=== PATIENT | female | born 1985 | race Caucasian/White ===

== ENCOUNTER 2018-07-24 21:06 | Emergency (ER) | payer MEDICAID, SELFPAY ==
[2018-07-24 21:07] VITALS: BP 120/65; PULSE 94; RESP 15; TEMP 36.8; BMI 27.3
--- NOTE | 2018-07-24 21:21 | ED.VISSUMM ---
- ER Visit Summary Date of Service: 07/24/18 Chief Complaint: Foot injury History of Present Illness: The patient is a 32 F presents to the emergency department with left foot injury. The patient states that she was at a park with her kids. She jumped off a large object into a [place]. She landed on a rock. She felt like her foot bent back. She was able to walk on it, but as the night has gone on, her pain is worsened. She describes it is very intense. She is otherwise healthy. She is not on any daily medications. She did not strike her head. She denies other injury. Physical Examination: Exam is relatively unremarkable. Patient does have contusion over the dorsum of the midfoot. Pulses are normal. Cap refill is normal. Sensation is preserved to light touch. Test Results: [] Emergency Department Course and Treatment: Plain films were obtained of the foot. There is no evidence of acute fracture. Again, the patient's pulses were normal. Compartments are soft. I do feel that this is likely ligamentous strain versus ligamentous rupture. The patient is placed in an Ayo wrap and given crutches. She will be given a short course of analgesics and anti-inflammatories along with outpatient podiatry follow-up. She is comfortable with this plan of care. After she was given analgesics, reevaluation she is resting comfortably and has good control of her pain. She will be discharged home. Treatment Plan: [] Disposition: Discharge Impression: 1. Left foot sprain This note was generated with [employer] dictation software. It may contain incorrect words, spelling, and punctuation that were not noted in review of the chart prior to signing ED Disposition - Plan for ED Patient: Instructions: ED Sprain Foot Prescriptions: Naproxen [Naprosyn] 500 mg PO BID PRN #20 tab Referrals: Addison Germain DPM [STAFF PHYSICIAN] -
--- NOTE | 2018-07-24 21:45 | RAD_ITS ---
HISTORY: PAIN FOLLOWING INJURY COMPARISON: None FINDINGS: # of images incl. paperwork: 3 XR Foot Min 3 Views : No fracture or subluxation. No osseous or soft tissue abnormality. The joint spaces are well-maintained. No radiopaque foreign body is seen. RAD/Foot min 3 Views IMPRESSION: Normal left foot. at 2236 Reported and signed by: Ricci Lyons MD Electronically Signed: Ricci Lyons MD at 22:35 EDT Tel , Service support ,
[2018-07-24] MEDS: HYDROcodone Bitartrate/Apap 5/325 Tablet PO ×2 (22:28→23:16)
[2018-07-24 23:19] VITALS: BP 116/75; PULSE 60; RESP 14; O2SAT 99
== END 2018-07-24 23:23 | disposition home or self-care (01) ==
PROVIDERS: Emergency Provider Emergency Medicine
DX: S93.602A Unspecified sprain of left foot, initial encounter (principal); S90.32XA Contusion of left foot, initial encounter; W16.92XA Jumping or diving into unspecified water causing other injury, initial encounter; W22.8XXA Striking against or struck by other objects, initial encounter; Y93.9 Activity, unspecified; Y92.830 Public park as the place of occurrence of the external cause; Y99.9 Unspecified external cause status; Z72.0 Tobacco use
CPT/HCPCS: 73630; 99284

== ENCOUNTER 2018-09-16 19:38 | Emergency (ER) | payer MEDICAID, SELFPAY ==
[2018-09-16 19:39] VITALS: BP 146/80; PULSE 75; RESP 18; TEMP 36.2; O2SAT 97; BMI 27.8
[2018-09-16] MEDS: 0.9% Normal Saline 1,000 ML 1000 ML IV (20:54)
[2018-09-16] MEDS: Ketorolac 30 MG/ML Syringe IV (20:55)
[2018-09-16] MEDS: Ondansetron 4 MG/2 ML Vial IV (20:55)
[2018-09-16 21:22] LABS: Internal QC Validated? YES +Cl - CLEAR BKGD; Pregnancy, Serum, hCG Quali. NEGATIVE Negative
--- NOTE | 2018-09-16 21:54 | ED.VISSUMM ---
- ER Visit Summary Date of Service: 09/16/18 Chief Complaint: Abdominal pain History of Present Illness: The patient is a 33 F who goes to the [facility]. She reports that she has abdominal pain that began 3 days ago. Is a diffuse aching pain that is 10-10 at worst and 8-10 currently. Is worsened by food and relieved by nothing. She had nausea without vomiting. She reports she had full episodes of diarrhea today. No blood in her stools or black tarry stools. No dysuria frequency. Her last menstrual. Was 2 days ago. No vaginal bleeding or discharge. Patient reports that she has swelling to the right side of her jaw for the past 3 days. Is gradually gotten worse. She has an achy pain 6 out of 10 with touching it. She denies any pain otherwise. She denies any dental pain. She denies sore throat. Physical Examination: Vitals: Stable. Afebrile. General: Well-nourished and well-developed. Head: Normocephalic atraumatic. Dental: Widespread dental decay. No focal abscess. There is no tenderness palpation. She has no sublingual edema. No trismus. Neck: Supple, no lymphadenopathy. No JVD. Nontender. Cardiovascular: Regular rate and rhythm. No murmurs. Respiratory: No respiratory distress. Clear to auscultation bilaterally. Abdominal: Soft, mild diffuse tenderness to palpation, nondistended, normal bowel sounds. No guarding, rebound, or peritoneal signs. Back: Nontender. Extremities: Nontender, no edema. Skin: Normal color, no rash. Neurologic: Alert and oriented ?3. Cranial nerves II through XII are intact. Normal strength and sensation. Psych: Normal affect. Test Results: test was negative. Emergency Department Course and Treatment: Patient was treated with Toradol and Zofran IV. She is resting comfortably. She is had no vomiting or diarrhea while here. Treatment Plan: Patient will be discharged with Zofran and clindamycin as she is penicillin allergic. Instructed to follow-up with dentist as soon as possible. Follow-up the [facility] in 1 to 2 days if her vomiting and diarrhea if not improving. Return to the emergency department for any worsening symptoms. Disposition: To home in improved and stable condition. Impression: 1. Vomiting/diarrhea. 2. Dental abscess. This note was generated with Dragon dictation software. It may contain incorrect words, spelling, and punctuation that were not noted in review of the chart prior to signing ED Disposition - Plan for ED Patient: Disposition: Home or Assisted Living Instructions: Dental Abscess, VOMITING AND DIARRHEA, Nonspecific (Adult) Prescriptions: Clindamycin [Cleocin] 300 mg PO 4X/DAY #80 cap Prescription Printed Ondansetron [Zofran Odt] 4 mg PO Q8H PRN PRN #10 tab PRN Reason: Nausea Prescription Printed Referrals: Dentist,Your [STAFF PHYSICIAN] - As soon as possible Ceci Olivas [Primary Care Provider] - 1-2 Days if not improving
[2018-09-16 22:06] VITALS: RESP 14
== END 2018-09-16 22:09 | disposition home or self-care (01) ==
PROVIDERS: Emergency Provider Emergency Medicine
DX: R11.2 Nausea with vomiting, unspecified (principal); R19.7 Diarrhea, unspecified; K04.7 Periapical abscess without sinus; K02.9 Dental caries, unspecified; R10.9 Unspecified abdominal pain; R51 Headache; Z72.0 Tobacco use
CPT/HCPCS: 84703; 96361; 96374; 96375; 99283; J7030; J2405

== ENCOUNTER 2018-10-06 07:28 | Emergency (ER) | payer MEDICAID, SELFPAY ==
[2018-10-06 07:29] VITALS: BP 130/86; PULSE 55; RESP 16; TEMP 36.6; O2SAT 97; BMI 26.4
--- NOTE | 2018-10-06 08:11 | ED.VISSUMM ---
- ER Visit Summary Date of Service: 10/06/18 Chief Complaint: Abdominal pain History of Present Illness: The patient is a 33 F with abdominal pain for 3 days. Pain is crampy and diffuse. Associated with nausea, vomiting, diarrhea, headache, and lightheadedness. Low-grade fevers. Denies sick contacts, but she did eat at a restaurant. She had steak but no other new or different foods. No travel. No history of abdominal surgeries. No urinary or INTELLIGENCE SUPPORT OFFICER symptoms. Physical Examination: Afebrile and vital signs unremarkable. Patient appears uncomfortable but not toxic or in distress. Normal mucous membranes. Normal skin. Heart regular. Lungs clear. Abdomen soft and nontender. No distention, guarding, or rebound. Test Results: We will check labs, urine, test. Emergency Department Course and Treatment: Patient received IV fluids and Zofran while awaiting results. Platelets 146, chloride 109, BUN 27, AST 10, lipase normal, urinalysis unremarkable, hCG negative. On reevaluation, patient has some continued nausea, but no new or other worsening symptoms. Patient was treated with Phenergan. I believe the patient is appropriate for outpatient care and discharge. She will be given a prescription for Phenergan. Stay hydrated. Return for any new or worsening symptoms which could require further evaluation or even hospitalization. Patient voiced understanding. Treatment Plan: As above Disposition: Discharge Impression: 1. Nausea, vomiting, diarrhea This note was generated with [id number] dictation software. It may contain incorrect words, spelling, and punctuation that were not noted in review of the chart prior to signing ED Disposition - Plan for ED Patient: Referrals: Ceci Olivas [Primary Care Provider] -
[2018-10-06] MEDS: 0.9% Normal Saline 1,000 ML 1000 ML IV (08:26)
[2018-10-06] MEDS: Ondansetron 4 MG/2 ML Vial IV (08:26)
[2018-10-06 08:27] LABS: Absolute Lymphocyte Count 1.82 X10^3/uL (0.83-4.51); Absolute Neutrophil Count 3.2 X10^3/uL (2.0-7.7); Basophil# 0.02 X10^3/uL; Basophil% 0.4 % (0-1); Eosinophil# 0.12 X10^3/uL; Eosinophils% 2.2 % (0-5); Hematocrit 41.2 % (37-47); Lymphocyte # 1.82 X10^3/ul (4.0); Lymphocyte % 32.7 % (19-41); Mean Corpuscular Hgb 31.5 pg (27.0-32.0); Mean Corpuscular Volume 92.6 fL (81-99); Mean Platelet Vol. 10.7 fl (6.2-12.0); Monocyte# 0.35 X10^3/uL; Monocyte% 6.3 % (0-10); NRBC Flagged by Analyzer 0 % (0-5); Neutrophil # 3.24 X10^3/uL (2.7-7.7); Platelet Count 146 K/mm3 (150-450); RBC Distribution Width CV 12.8 % (11.6-14.6); RBC Distribution Width SD 43.7 fl (35.1-43.9); Red Blood Count 4.45 M/mm3 (4.2-5.4); White Blood Count 5.6 K/mm3 (4.4-11.0)
[2018-10-06 08:38] LABS: ALB/GLOB Ratio 1.1 RATIO (0.9-2.4); AST(SGOT) 10 U/L (15-37); Alanine Aminotransfer ALT/SGPT 18 U/L (13-56); Albumin, Serum 3.5 g/dL (3.2-5.0); Alkaline Phosphatase 81 U/L (45-117); Anion Gap 6 (5-15); BUN 27 mg/dL (7-18); BUN/Creat Ratio 33.1 RATIO (10-20); Calcium,Total 8.5 mg/dL (8.5-10.1); Chloride 109 mmol/L (98-107); Creatinine, Serum 0.82 mg/dL (0.55-1.02); EST Glomerular Filtration Rate 85 mL/min (>60); Est Glom Filt Rate - Afr Amer 103 mL/min (>60); Globulin 3.1 g/dL (2.2-4.2); Glucose 91 mg/dL (74-106); Lipase 170 U/L (73-393); Potassium 3.9 mmol/L (3.5-5.1); Protein, Total 6.6 g/dL (6.4-8.2); Sodium Level 141 mmol/L (136-145)
[2018-10-06 09:28] VITALS: BP 124/83; PULSE 47; O2SAT 100
[2018-10-06 09:36] LABS: Internal QC Validated? YES +Cl - CLEAR BKGD; Pregnancy, Urine Negative Negative
[2018-10-06 09:37] LABS: Color, Urine Yellow (Yellow); Glucose, Dipstick Normal (Normal); Ketone-Dipstick Negative (Negative); Leukocyte Esterase-Dipstick 25 /ul (Negative); Nitrite-Dipstick Negative (Negative); Occult Blood-Urine 250 /ul (Negative); Protein-Dipstick 15 mg/dl (Negative); Specific Gravity, Urine 1.025 (1.002-1.030); Urine Bilirubin Dipstick Negative (Negative); Urine Clarity Sl. Cloudy (Clear); Urine Urobilinogen Normal (Normal)
[2018-10-06 09:47] LABS: Bacteria RARE /hpf (None Seen); Mucous, Urine 1+ /hpf (<or=2+); Red Blood Cells-Urine 0-5 SEEN /hpf (0-5); Squamous Epithelial Cells - UA 0-5 SEEN /hpf (5-10); White Blood Cells 0-5 SEEN /hpf (0-5)
[2018-10-06 10:11] VITALS: BP 129/91; PULSE 61; RESP 16; O2SAT 100
[2018-10-06] MEDS: proMETHazine 25 MG/ML Syringe 12.5 MG IV (10:15)
--- NOTE | 2018-10-06 10:17 | ED.DEP ---
ED Disposition - Plan for ED Patient: Instructions: GASTROENTERITIS, Viral (6y-Adult) Prescriptions: proMETHazine tablet [Phenergan] 25 mg PO Q6H PRN PRN #10 tab PRN Reason: Nausea Prescription Printed Referrals: Ceci Olivas [Primary Care Provider] -
== END 2018-10-06 10:38 | disposition home or self-care (01) ==
LOC: ED 08:04
PROVIDERS: Emergency Provider Emergency Medicine
DX: R10.9 Unspecified abdominal pain (principal); R11.2 Nausea with vomiting, unspecified; R19.7 Diarrhea, unspecified; R50.9 Fever, unspecified; R42 Dizziness and giddiness; R51 Headache; Z72.0 Tobacco use
CPT/HCPCS: 80053; 81001; 81025; 83690; 85025; 96361; 96374; 96375; 99284; J7030; A4216; J2405

== ENCOUNTER 2019-01-06 04:26 | Emergency (ER) | payer MEDICAID, SELFPAY ==
[2019-01-06 04:26] VITALS: BP 159/102; PULSE 53; RESP 20; TEMP 36.5; O2SAT 100; BMI 26.5
--- NOTE | 2019-01-06 04:40 | ED.VIS.GEN ---
History of Present Illness Informant: Patient Narrative: She stated she has had nausea vomiting since 1130 approximately 4 hours ago. She woke up and felt diffuse abdominal cramping and started retching. She has had too many dry heaves to count. No home treatment. No sick contacts. No fevers or chills. Denies any diarrhea. Current severity is moderate. Denies . <Valentin Segovia - Last Filed: 01/06/19 06:41> <Caroline Coffman - Last Filed: 01/06/19 07:31> Chief Complaint: Nausea/Vomiting Past Medical History Prior records reviewed: Yes Past Medical History: None Surgical History: - - section Lives: With Family Smoking Status: Current every day smoker Alcohol: None Drugs: None <Valentin Segovia - Last Filed: 01/06/19 06:41> <Caroline Coffman - Last Filed: 01/06/19 07:31> - Allergies and Home Meds Allergies/Adverse Reactions: Allergies Penicillins Allergy (Verified 01/06/19 04:31) Anaphylaxis Primary Care Physician: Ceci Olivas [Primary Care Provider] - Review of Systems General: Denies: Chills, Fever, Sweats Eyes: Denies: Visual changes - bilaterally, Diplopia ENT: Denies: Rhinorrhea, Sore throat Cardiovascular: Denies: Chest pain, Palpitations Respiratory: Denies: Dyspnea, Cough, Dyspnea on exertion Gastrointestinal: Reports: Abdominal pain, Nausea, Vomiting. Denies: Diarrhea, Melena, Hematochezia Genitourinary: Denies: Dysuria, Hematuria, Frequency Musculoskeletal: Denies: Back pain, Extremity Pain Skin: Denies: Rash, Wounds Neurological: Denies: Headache, Weakness, Numbness <Valentin Segovia - Last Filed: 01/06/19 06:41> Physical Exam Vital Signs/Narrative: Vital Signs Temp Pulse Resp BP Pulse Ox 01/06/19 04:26 97.7 F L 53 L 20 H 159/102 H 100 General: Well nourished, Well developed, No Acute Distress Head: Normocephalic, Atraumatic Eyes: Perrl, EOMI ENT: Moist mucous membranes, No rhinorrhea Neck: Supple, Nontender Cardiovascular: Regular rate, Regular rhythm, No murmurs Respiratory: No distress, CTA bilaterally, Chest nontender Abdomen: Soft, Nondistended, Normal bowel sounds, Tender - Mild diffuse tenderness. Negative for: Nontender, Guarding, Rebound tenderness Back: Nontender, Normal Inspection Extremities: Nontender, No edema Skin: Normal color, No rash Neurological: Alert, Oriented x3, Cranial nerves II-XII grossly intact, Normal Strength, Normal Sensation Psychological: Normal affect, Normal Mood <Valentin Segovia - Last Filed: 01/06/19 06:41> Vital Signs/Narrative: Vital Signs Temp Pulse Resp BP Pulse Ox 01/06/19 06:46 60 18 155/89 H 100 01/06/19 04:26 97.7 F L 53 L 20 H 159/102 H 100 <Caroline Coffman - Last Filed: 01/06/19 07:31> Diagnostic/Tx/Re-eval - Medical Decision Making Patient given IV fluids Zofran Toradol. Lab work obtained and lab work unremarkable except potassium 3.4. Patient felt much better after treatment. At this time I feel she has an uncomplicated nausea and vomiting. She will be discharged with Zofran to take at home and will drink plenty of fluids. She will return if she worsens. I do not feel she needs further lab work or imaging. <Valentin Segovia - Last Filed: 01/06/19 06:41> - Medical Decision Making Patient was reevaluated at 730. She states she has not had any further vomiting still feels slightly nauseous. I encouraged her to go home and sleep, not put anything on her stomach right now. She is given prescriptions for Phenergan and Zofran per Dr. Segovia's orders. <Caroline Coffman - Last Filed: 01/06/19 07:31> ED Disposition <Valentin Segovia - Last Filed: 01/06/19 06:41> <Caroline Coffman - Last Filed: 01/06/19 07:31> - Plan for ED Patient: Disposition: Home or Assisted Living Diagnosis: Vomiting Instructions: VOMITING (6y-Adult) Prescriptions: proMETHazine tablet [Phenergan] 25 mg PO Q6H PRN PRN #10 tab PRN Reason: Nausea Prescription Printed Ondansetron [Zofran Odt] 4 mg PO Q8H PRN PRN #10 tab PRN Reason: Nausea Prescription Printed Referrals: Ceci Olivas [Primary Care Provider] -
[2019-01-06] MEDS: Ondansetron 4 MG/2 ML Vial IV ×2 (04:50→06:02)
[2019-01-06] MEDS: 0.9% Normal Saline 1,000 ML 1000 ML IV ×2 (04:50→06:02)
[2019-01-06] MEDS: Ketorolac 30 MG/ML Syringe IV (04:50)
[2019-01-06 05:10] LABS: Anion Gap 7 (5-15); BUN 13 mg/dL (7-18); BUN/Creat Ratio 18.5 RATIO (10-20); Calcium,Total 8.7 mg/dL (8.5-10.1); Chloride 109 mmol/L (98-107); EST Glomerular Filtration Rate 100 mL/min (>60); Est Glom Filt Rate - Afr Amer 121 mL/min (>60); Estimated Creatinine Clearance 117.23 ml/min; Glucose 130 mg/dL (74-106); Potassium 3.4 mmol/L (3.5-5.1); Sodium Level 140 mmol/L (136-145)
[2019-01-06] MEDS: proMETHazine 25 MG/ML Syringe 12.5 MG IV (06:44)
[2019-01-06 06:46] VITALS: BP 155/89; PULSE 60; RESP 18; O2SAT 100
[2019-01-06 07:36] VITALS: BP 113/74; PULSE 62; RESP 15; O2SAT 98
== END 2019-01-06 07:39 | disposition home or self-care (01) ==
PROVIDERS: Emergency Provider Emergency Medicine; Referring Provider Nurse Practitioner Family
DX: R11.2 Nausea with vomiting, unspecified (principal); F17.200 Nicotine dependence, unspecified, uncomplicated; Z88.0 Allergy status to penicillin
CPT/HCPCS: 80048; 96361; 96374; 96375; 96376; 99285; J7030; A4216; J2405

== ENCOUNTER → 2019-03-07 16:23 | Outpatient (CLI) | payer MEDICAID, SELFPAY ==
--- NOTE | 2019-03-07 16:27 | RAD_ITS ---
STUDY: X-RAY - SACRUM/COCCYX REASON FOR EXAM: Female, 33 years old. Pain. Prior trauma. TECHNIQUE: 3 view(s) of the sacrum and coccyx were obtained. COMPARISON: None. FINDINGS: Normal bilateral sacroiliac joints. Normal visualized sacral ala and fused sacral bodies. Normal sacrococcygeal junction with a normal angulation. There is an intrauterine device noted. The presacral soft tissue structures are unremarkable. RAD/Sacrum-Coccyx min 2 Views IMPRESSION: Normal x-rays of the sacrum and coccyx. Electronically Signed: Jonas Tillman, at 19:59 EST Tel , Service support ,
--- NOTE | 2019-03-07 16:30 | RAD_ITS ---
STUDY: X-RAY - LUMBAR SPINE REASON FOR EXAM: Female, 33 years old. Pain. Prior trauma. TECHNIQUE: 3 view(s) of the lumbar spine were obtained. COMPARISON: None FINDINGS: There is no evidence of fracture or dislocation in the lumbar spine. The vertebral body heights and disc spaces are well-maintained. There are no significant degenerative changes. There is intrauterine device noted. RAD/Lumbar Spine 2 or 3 Views IMPRESSION: No fracture or dislocation in the lumbar spine. Electronically Signed: Jonas Tillman, at 19:58 EST Tel , Service support ,
== END ==
DX: M54.5 Low back pain (principal)
CPT/HCPCS: 72100; 72220

== ENCOUNTER 2019-03-14 12:00 | Emergency (ER) | payer MEDICAID, SELFPAY ==
[2019-03-14 12:01] VITALS: BP 139/100; PULSE 88; RESP 16; TEMP 37; O2SAT 100; BMI 27.3
--- NOTE | 2019-03-14 14:00 | ED.DCSUM_ITS ---
- ER Visit Summary Date of Service: 03/14/19 Chief Complaint: Right side pain History of Present Illness: The patient is a 33 F who presents with pain in her entire right side of her body for the past 2 to 3 weeks. Patient states it is gradually gotten worse. Patient states it is over her right arm and right leg. Patient also admits to some pain in the right side of her back. Patient admits to some numbness and achiness in her right lower extremity. Patient states her right great toe goes white. Patient denies any fevers but admits to subjective chills. Patient admits to headache, neck pain, and back pain. Patient states she has pain that is worse over the posterior aspect of the right hip and right gluteal area. Physical Examination: All signs are stable. Patient is afebrile. Patient is in no acute distress. Oral mucosa is pink and moist. Neck is supple. Trachea is midline. There is no JVD. Heart was regular rate and rhythm. Lungs are clear and equal bilaterally. Abdomen is soft. Bowel sounds are normal. There is no tenderness. Extremities are intact. Pedal pulses are equal bilaterally. Radial pulses are equal bilaterally. Sensation was intact light touch in all digits. Capillary refill was less than 2 seconds in all digits. Strength is 5 /5 bilateral knee upper and lower extremities. There is tenderness over the right sciatic notch. This reproduces the paresthesias down her right lower extremity. Emergency Department Course and Treatment: Patient was advised that this is most likely sciatica causing the pain down her right lower extremity. She may also have some muscle spasm causing some paresthesias in her right upper extremity. Patient does not have any signs of vascular occlusion. Patient was advised that no radiographic or lab testing is necessary at this time. Patient became upset with this and grabbed her socks and started to put them on. Patient stated that you cannot diagnose a pinched nerve without a CAT scan. Patient was given prescriptions for Naprosyn and Valium. Patient was instructed to follow-up with her primary care physician in 3 to 5 days. Patient understood and all questions were answered. Disposition: Discharge home Impression: Sciatica This note was generated with [employer] dictation software. It may contain incorrect words, spelling, and punctuation that were not noted in review of the chart kaio r to signing ED Disposition - Plan for ED Patient: Disposition: Home or Assisted Living Diagnosis: Sciatica Instructions: Understanding Sciatica Prescriptions: Naproxen [Naprosyn] 500 mg PO BID PRN #20 tab Prescription Printed Diazepam [Valium] 5 mg PO Q8 PRN #10 tab PRN Reason: Muscle Spasm Prescription Printed Referrals: Ceci Olivas [Primary Care Provider] - 3-5 Days
--- NOTE | 2019-03-14 14:13 | ED.RN ---
THIS RN WENT TO DISCHARGE PT. PT ROOM IS EMPTY. PT LEFT PRIOR TO DISCHARGE INSTRUCTIONS. DR. COLEMAN MADE AWARE, PRESCRIPTIONS WERE PUT IN CONFIDENTIAL SHREDDER BOX.
== END 2019-03-14 14:26 | disposition home or self-care (01) ==
PROVIDERS: Emergency Provider Emergency Medicine
DX: M54.31 Sciatica, right side (principal); R07.9 Chest pain, unspecified; M54.2 Cervicalgia; R51 Headache; Z72.0 Tobacco use; R11.0 Nausea; Z79.899 Other long term (current) drug therapy
CPT/HCPCS: 99282

== ENCOUNTER 2019-05-03 07:20 | Emergency (ER) | payer MEDICAID, SELFPAY ==
[2019-05-03 07:21] VITALS: BP 139/81; PULSE 69; RESP 18; TEMP 36.6; O2SAT 96; BMI 29.5
--- NOTE | 2019-05-03 07:32 | RAD_ITS ---
STUDY: X-RAY CHEST REASON FOR EXAM: Female, 33 years old. Cough, fever body aches -- x 1 week TECHNIQUE: PA and lateral views of the chest. COMPARISON: Comparison is made with prior examination dated November 29, 2016. FINDINGS: The lungs are clear and expanded. Stable scattered calcified granulomas. There is no demonstrated pleural abnormality. Normal size heart. Normal mediastinum and aleena. Normal visualized pulmonary arteries. Normal visualized aortic arch and descending thoracic aorta. Normal visualized thoracic spine. Normal visualized ribs, clavicles, and shoulders. There is no demonstrated abnormality of the visualized soft tissue structures of the upper abdomen. RAD/Chest PA and Lateral IMPRESSION: Normal x-ray examination of the chest. Electronically Signed: Yo Zuniga, at 8:46 EDT , Service support ,
--- NOTE | 2019-05-03 07:32 | ED.VIS.GEN ---
History of Present Illness Chief Complaint: Cough Informant: Patient Narrative: Patient states that approximately 9 days ago she woke up with headache cough and body aches and fever. She notes nausea at that time. States symptoms have progressed. Fever is subjective. She states that each of the past several mornings she is woken up with a sensation that something is in her throat begins to cough which leads to coughing fits gagging and posttussive emesis. She also notes some diarrhea. No rashes. She denies any rhinorrhea or nasal congestion. Past Medical History - Allergies and Home Meds Allergies/Adverse Reactions: Allergies Penicillins Allergy (Verified 05/03/19 07:23) Anaphylaxis Primary Care Physician: Ceci Olivas [Primary Care Provider] - Surgical History: - - section Smoking Status: Current every day smoker Review of Systems General: Reports: Chills, Fever, Malaise, Subjective. Denies: Sweats Eyes: Denies: Visual changes - bilaterally, Diplopia ENT: Denies: Rhinorrhea, Sore throat Cardiovascular: Denies: Chest pain, Palpitations Respiratory: Reports: Cough. Denies: Dyspnea, Dyspnea on exertion Gastrointestinal: Reports: Nausea, Vomiting, Diarrhea. Denies: Abdominal pain, Melena, Hematochezia Genitourinary: Denies: Dysuria, Hematuria, Frequency Musculoskeletal: Reports: Myalgias. Denies: Back pain, Extremity Pain Skin: Denies: Rash, Wounds Neurological: Reports: Headache. Denies: Weakness, Numbness Psych: Denies: Depression, Anxiety, Suicidal thoughts, Suicidal ideations Endocrine: Denies: Polyuria, Polydipsia, Heat intolerance, Cold intolerance Hematologic: Denies: Easy bruising, Easy bleeding Allergy: Denies: Uticaria, Swelling of the mouth Physical Exam Vital Signs/Narrative: Vital Signs Temp Pulse Resp BP Pulse Ox 05/03/19 07:21 98 F 69 18 139/81 H 96 Inital Vital Signs reviewed: Yes General: Well nourished, Well developed, No Acute Distress Head: Normocephalic, Atraumatic Eyes: Perrl, EOMI ENT: Moist mucous membranes, No rhinorrhea Neck: Supple, Nontender Cardiovascular: Regular rate, Regular rhythm, No murmurs Respiratory: No distress, CTA bilaterally, Chest nontender Abdomen: Soft, Nontender, Nondistended, Normal bowel sounds Back: Nontender, Normal Inspection Extremities: Nontender, No edema Skin: Normal color, No rash Neurological: Alert, Oriented x3, Cranial nerves II-XII grossly intact, Normal Strength, Normal Sensation Psychological: Normal affect, Normal Mood Diagnostic/Tx/Re-eval - Medical Decision Making CBC CMP and lipase were normal. Influenza swab is normal. test is negative. Chest x-ray negative. Patient received a liter of IV fluids. Patient will be discharged home with continued supportive care. I will write for Zofran for nausea vomiting. Continued rest hydration Tylenol and/or Motrin for fever follow-up with primary care. ED Disposition - Plan for ED Patient: Disposition: Home or Assisted Living Diagnosis: Gastroenteritis, Viral syndrome Instructions: VIRAL SYNDROME (Adult), GASTROENTERITIS, Viral (6y-Adult) Prescriptions: Ondansetron [Zofran Odt] 4 mg PO Q6H PRN PRN #14 tab PRN Reason: Nausea Transmission Status: Pending to [facility] [place] Referrals: Ceci Olivas [Primary Care Provider] - 3-5 Days if not improving
[2019-05-03] MEDS: Ondansetron 4 MG/2 ML Vial IV (07:58)
[2019-05-03] MEDS: Ketorolac 15 MG/ML Vial IV (07:58)
[2019-05-03] MEDS: 0.9% Normal Saline 1,000 ML 1000 ML IV (07:58)
[2019-05-03 08:03] VITALS: BP 131/94; PULSE 65; RESP 16; TEMP 36.8; O2SAT 100
[2019-05-03 08:13] LABS: Absolute Lymphocyte Count 1.62 X10^3/uL (0.83-4.51); Absolute Neutrophil Count 6.6 X10^3/uL (2.0-7.7); Basophil# 0.01 X10^3/uL; Basophil% 0.1 % (0-1); Eosinophil# 0.08 X10^3/uL; Eosinophils% 0.9 % (0-5); Hematocrit 38.4 % (37-47); Hemoglobin 13.3 g/dL (12.0-15.0); Lymphocyte # 1.62 X10^3/ul (4.0); Lymphocyte % 18.5 % (19-41); Mean Corp Hgb Conc 34.6 g/dL (32-36); Mean Corpuscular Hgb 30.6 pg (27.0-32.0); Mean Corpuscular Volume 88.5 fL (81-99); Mean Platelet Vol. 10.2 fl (6.2-12.0); Monocyte# 0.44 X10^3/uL; NRBC Flagged by Analyzer 0 % (0-5); Neutrophil # 6.56 X10^3/uL (2.7-7.7); Neutrophil % 74.9 % (47-70); Platelet Count 139 K/mm3 (150-450); RBC Distribution Width CV 12.2 % (11.6-14.6); RBC Distribution Width SD 39.8 fl (35.1-43.9); Red Blood Count 4.34 M/mm3 (4.2-5.4); White Blood Count 8.8 K/mm3 (4.4-11.0)
[2019-05-03 08:25] LABS: ALB/GLOB Ratio 1.1 RATIO (0.9-2.4); AST(SGOT) 23 U/L (15-37); Alanine Aminotransfer ALT/SGPT 29 U/L (13-56); Albumin, Serum 3.5 g/dL (3.2-5.0); Alkaline Phosphatase 66 U/L (45-117); Anion Gap 5 (5-15); BUN 17 mg/dL (7-18); BUN/Creat Ratio 28.3 RATIO (10-20); Calcium,Total 8.1 mg/dL (8.5-10.1); Chloride 112 mmol/L (98-107); EST Glomerular Filtration Rate 121 mL/min (>60); Est Glom Filt Rate - Afr Amer 146 mL/min (>60); Estimated Creatinine Clearance 136.77 ml/min; Globulin 3.1 g/dL (2.2-4.2); Glucose 105 mg/dL (74-106); Lipase 135 U/L (73-393); Potassium 3.4 mmol/L (3.5-5.1); Protein, Total 6.6 g/dL (6.4-8.2); Sodium Level 143 mmol/L (136-145)
[2019-05-03 10:02] LABS: Internal QC Validated? YES +Cl - CLEAR BKGD; Pregnancy, Urine Negative Negative
[2019-05-03 11:46] VITALS: BP 134/97; PULSE 80; RESP 16; O2SAT 97
[2019-05-03 11:47] VITALS: BP 134/97; PULSE 80; RESP 16; TEMP 36.6; O2SAT 97
== END 2019-05-03 11:49 | disposition home or self-care (01) ==
PROVIDERS: Emergency Provider Emergency Medicine
DX: A08.4 Viral intestinal infection, unspecified (principal); R05 Cough; F17.200 Nicotine dependence, unspecified, uncomplicated; Z79.899 Other long term (current) drug therapy; Z88.0 Allergy status to penicillin
CPT/HCPCS: 71046; 80053; 81025; 83690; 85025; 87804; 96361; 96374; 96375; 99284; J7030; A4216; J2405

== ENCOUNTER 2019-05-06 13:05 | Emergency (ER) | payer MEDICAID, SELFPAY ==
[2019-05-06 13:09] VITALS: BP 177/85; PULSE 56; RESP 18; TEMP 36.4; O2SAT 98; BMI 29.9
--- NOTE | 2019-05-06 13:52 | RAD_ITS ---
STUDY: X-RAY CHEST REASON FOR EXAM: Female, 33 years old. PT C/O cough, body aches, N/V. Denies any travel or contact with sick, was seen last week for flu like sx TECHNIQUE: Single AP portable view of the chest. COMPARISON: 05/03/2019 FINDINGS: The lungs are clear and expanded. There is no demonstrated pleural abnormality. Normal size heart. Normal mediastinum and aleena. Normal visualized pulmonary arteries. Normal visualized aortic arch and descending thoracic aorta. Normal visualized thoracic spine. Normal visualized ribs, clavicles, and shoulders. There is no demonstrated abnormality of the visualized soft tissue structures of the upper abdomen. RAD/Chest 1 View (Portable) IMPRESSION: Normal x-ray examination of the chest. Electronically Signed: Darren Moncada MD at 14:13 EDT Tel , Service support ,
--- NOTE | 2019-05-06 13:53 | ED.VISSUMM ---
- ER Visit Summary Date of Service: 05/06/19 Chief Complaint: Nausea and vomiting History of Present Illness: The patient is a 33 F with nausea and vomiting for several days. She also has occasional diarrhea. She reports a cough, but denies fevers, shortness of breath, travel, or exposure to coronavirus. She was seen in the ED earlier this week. Her labs were unremarkable. Influenza test was negative. She was treated with fluids and prescribed Zofran. She took Zofran at home, but is not improving. She feels worse but has no real new symptoms since her prior visit. She has a history of H. pylori, kidney stones, gastroenteritis, . Smoker. Physical Examination: Hypertensive but otherwise vitals unremarkable. Alert and oriented. Appears uncomfortable and depressed. Not toxic or in distress. Mucous membranes are moist. Heart regular. Lungs clear. Abdomen soft and nontender. Extremities nontender with no edema. Test Results: We will recheck labs, check urine and as well. We will check a chest x-ray. Emergency Department Course and Treatment: Patient was treated with Toradol, Phenergan, fluids while awaiting results. Will reassess. CBC normal. Metabolic panel unremarkable. Lipase normal. Urinalysis unremarkable. hCG negative. Chest x-ray normal. Reevaluation, patient will be discharged for outpatient care. No red flag features. No indication for inpatient care or further diagnostic testing. She will prescribed Phenergan and medicine for pain. Rest, fluids, follow-up with primary care. Treatment Plan: As above Disposition: Discharge Impression: Nausea vomiting and diarrhea This note was generated with [employer] dictation software. It may contain incorrect words, spelling, and punctuation that were not noted in review of the chart prior to signing ED Disposition - Plan for ED Patient: Referrals: Ceci Olivas [Primary Care Provider] -
[2019-05-06] MEDS: 0.9% Normal Saline 1,000 ML 1000 ML IV (14:18)
[2019-05-06] MEDS: Ketorolac 30 MG/ML Syringe IV (14:19)
[2019-05-06] MEDS: proMETHazine 25 MG/ML Syringe 12.5 MG IV (14:19)
[2019-05-06 14:22] LABS: Absolute Lymphocyte Count 0.77 X10^3/uL (0.83-4.51); Absolute Neutrophil Count 7.5 X10^3/uL (2.0-7.7); Eosinophil# 0.01 X10^3/uL; Eosinophils% 0.1 % (0-5); Hematocrit 37.4 % (37-47); Hemoglobin 12.9 g/dL (12.0-15.0); Lymphocyte # 0.77 X10^3/ul (4.0); Lymphocyte % 9.1 % (19-41); Mean Corp Hgb Conc 34.5 g/dL (32-36); Mean Corpuscular Hgb 30.5 pg (27.0-32.0); Mean Corpuscular Volume 88.4 fL (81-99); Mean Platelet Vol. 10.5 fl (6.2-12.0); Monocyte# 0.17 X10^3/uL; NRBC Flagged by Analyzer 0 % (0-5); Neutrophil # 7.51 X10^3/uL (2.7-7.7); Neutrophil % 88.4 % (47-70); Platelet Count 165 K/mm3 (150-450); RBC Distribution Width CV 12.7 % (11.6-14.6); Red Blood Count 4.23 M/mm3 (4.2-5.4); White Blood Count 8.5 K/mm3 (4.4-11.0)
[2019-05-06 14:38] LABS: ALB/GLOB Ratio 1.2 RATIO (0.9-2.4); AST(SGOT) 19 U/L (15-37); Alanine Aminotransfer ALT/SGPT 30 U/L (13-56); Albumin, Serum 3.7 g/dL (3.2-5.0); Alkaline Phosphatase 71 U/L (45-117); Anion Gap 7 (5-15); BUN 12 mg/dL (7-18); Calcium,Total 8.5 mg/dL (8.5-10.1); Chloride 110 mmol/L (98-107); Creatinine, Serum 0.57 mg/dL (0.55-1.02); EST Glomerular Filtration Rate 127 mL/min (>60); Est Glom Filt Rate - Afr Amer 154 mL/min (>60); Estimated Creatinine Clearance 143.97 ml/min; Globulin 3.2 g/dL (2.2-4.2); Glucose 136 mg/dL (74-106); Lipase 78 U/L (73-393); Potassium 3.6 mmol/L (3.5-5.1); Protein, Total 6.9 g/dL (6.4-8.2); Sodium Level 140 mmol/L (136-145)
[2019-05-06 15:32] LABS: Glucose, Dipstick 50 mg/dl (Normal); Ketone-Dipstick 50 mg/dl (Negative); Leukocyte Esterase-Dipstick Negative /ul (Negative); Nitrite-Dipstick Negative (Negative); Occult Blood-Urine 50 /ul (Negative); Protein-Dipstick Negative (Negative); Urine Bilirubin Dipstick Negative (Negative); Urine Urobilinogen Normal (Normal)
[2019-05-06 15:35] LABS: Internal QC Validated? YES +Cl - CLEAR BKGD; Pregnancy, Urine Negative Negative
[2019-05-06 15:36] LABS: Color, Urine Yellow (Yellow); Urine Clarity Clear (Clear)
--- NOTE | 2019-05-06 15:48 | ED.DEP ---
ED Disposition - Plan for ED Patient: Instructions: GASTROENTERITIS, Viral (6y-Adult) Prescriptions: Ibuprofen [Motrin] 800 mg PO TID PRN PRN #20 tab PRN Reason: Pain Or Fever Prescription Printed proMETHazine tablet [Phenergan] 25 mg PO Q6H PRN PRN #10 tab PRN Reason: Nausea Prescription Printed Referrals: Ceci Olivas [Primary Care Provider] -
[2019-05-06 16:12] VITALS: BP 120/87; PULSE 78; RESP 16; O2SAT 99
--- NOTE | 2019-05-06 16:20 | ED.RN ---
called [facility], they are to send [facility]. 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
== END 2019-05-06 16:21 | disposition home or self-care (01) ==
LOC: ED 14:28
PROVIDERS: Emergency Provider Emergency Medicine
DX: R11.2 Nausea with vomiting, unspecified (principal); R19.7 Diarrhea, unspecified; I10 Essential (primary) hypertension; R05 Cough; F17.200 Nicotine dependence, unspecified, uncomplicated; Z79.899 Other long term (current) drug therapy; Z86.19 Personal history of other infectious and parasitic diseases; Z87.442 Personal history of urinary calculi
CPT/HCPCS: 71045; 80053; 81002; 81025; 83690; 85025; 96361; 96374; 96375; 99285; J7030

== ENCOUNTER → 2019-06-15 12:25 | Outpatient (CLI) | payer MEDICAID, SELFPAY ==
--- NOTE | 2019-06-15 14:14 | NEURO ---
NCS and/or EMG Patient Report Ordering Doctor: Lauren Daniel DATE OF SERVICE: 06/15/19 Tammy Avila is a 33-year-old female presents for electrodiagnostic testing of the upper limbs. She reports numbness and tingling in both hands, worse on the right side. Electrode diagnostic findings median motor nerve demonstrates prolonged distal latency with normal amplitude bilaterally. There is slowing of right median motor conduction across the wrist. Ulnar motor responses within normal limits. Median sensory latency at the wrist is prolonged bilaterally. Normal ulnar and radial sensory responses On needle EMG, all muscles tested in the upper limbs showed no evidence of denervation with normal motor unit action potentials. Electrodiagnostic assessment: This is an abnormal study in the upper limbs 1. Electrodiagnostic findings demonstrate bilateral median mononeuropathy. This is consistent with a mild to moderate bilateral carpal tunnel syndrome. If there are any further questions, please do not hesitate to contact me.
== END ==
PROVIDERS: Visit Provider Nurse Practitioner Family
DX: G56.03 Carpal tunnel syndrome, bilateral upper limbs (principal)
CPT/HCPCS: 95886; 95912

== ENCOUNTER 2019-07-24 17:27 | Emergency (ER) | payer MEDICAID, SELFPAY ==
[2019-07-24 17:28] VITALS: BP 145/92; PULSE 61; RESP 16; TEMP 36.3; O2SAT 97; BMI 27.3
--- NOTE | 2019-07-24 17:45 | ED.VIS.GI ---
History of Present Illness Chief Complaint: Nausea/Vomiting Informant: Patient - Abdominal Pain/Flank Pain Onset: Today Context: - - Awoke in the middle of the night with vomiting Quality: Aching, Cramping Location: Diffuse Current Severity: Severe Maximum Severity: Severe Worsened by: Food Relieved by: Nothing - Nausea/Vomiting/Emesis GI Symptom: Nausea, Vomiting Quality: Nonbilious, Blood streaks. Negative for: Coffee ground Severity: Severe - Diarrhea/Melena/Hematochezia GI Symptom: Diarrhea. Negative for: Melena, Hematochezia Stool Quality: Loose. Negative for: Black, Maroon, KALEB per rectum Severity: Moderate Associated Symptoms: Negative for: Dysuria, Frequency, Hematuria, Urgency Narrative: 33-year-old healthy female is seen along with her for the same symptoms; vomiting, she states it started last night the middle of the night, she was out drinking last night, states she had about 5 shots of gin followed by an additional mixed drink with hard liquor. She states she usually does not drink. Pain cramping is diffuse, does not radiate into her back. She denies pain up into her chest or trouble breathing. No recent fevers. No blood per rectum. Or melena. She has been vomiting all night and day, cannot keep any fluids down, him has been feeling lightheaded. No syncope. Past Medical History - Allergies and Home Meds Allergies/Adverse Reactions: Allergies Penicillins Allergy (Verified 05/03/19 07:23) Anaphylaxis Primary Care Physician: Ceci Kirby [Primary Care Provider] - Past Medical History: None Surgical History: - - section Lives: Spouse/ Significant Other Smoking Status: Current every day smoker Alcohol: Occasional Review of Systems General: Reports: Malaise. Denies: Chills, Fever, Sweats Eyes: Denies: Visual changes - bilaterally, Diplopia ENT: Denies: Rhinorrhea, Sore throat Cardiovascular: Denies: Chest pain, Palpitations Respiratory: Denies: Dyspnea, Cough, Dyspnea on exertion Gastrointestinal: Reports: Abdominal pain, Nausea, Vomiting, Diarrhea. Denies: Melena, Hematochezia Genitourinary: Denies: Dysuria, Hematuria, Frequency Musculoskeletal: Denies: Back pain, Extremity Pain Skin: Denies: Rash, Wounds Neurological: Denies: Headache, Weakness, Numbness Psych: Reports: Anxiety Physical Exam Vital Signs/Narrative: Vital Signs Temp Pulse Resp BP Pulse Ox 07/24/19 17:28 97.3 F L 61 16 145/92 H 97 Inital Vital Signs reviewed: Yes General: Well nourished, Well developed, Obese, No Acute Distress Head: Normocephalic, Atraumatic Eyes: Perrl, EOMI ENT: Moist mucous membranes, No rhinorrhea Neck: Supple, Nontender. Negative for: No lymphadenopathy Cardiovascular: Regular rate, Regular rhythm, No murmurs. Negative for: Tachycardia Respiratory: No distress, CTA bilaterally, Chest nontender Abdomen: Soft, Nondistended, Normal bowel sounds, Tender - Epigastrium. Negative for: Guarding, Rebound tenderness Back: Nontender, Normal Inspection. Negative for: CVA tenderness Extremities: Nontender, No edema Skin: Normal color, No rash, No Trauma Neurological: Alert, Oriented x3, Cranial nerves II-XII grossly intact, Normal Strength, Normal Sensation Psychological: Normal Mood, - - Anxious Diagnostic/Tx/Re-eval Laboratory Results 07/24/19 07/24/19 07/24/19 17:54 17:54 19:35 WBC 10.0 RBC 4.78 Hgb 14.6 Hct 42.5 MCV 88.9 MCH 30.5 MCHC 34.4 RDW Std Deviation 41.8 RDW Coeff of Amrit 12.7 Plt Count 162 MPV 10.0 Immature Gran % (Auto) 0.300 Neut % (Auto) 90.6 H Lymph % (Auto) 7.4 L [place] % (Auto) 1.5 Eos % (Auto) 0.1 Baso % (Auto) 0.1 Absolute Neuts (auto) 9.1 H Absolute Lymphs (auto) 0.74 L Nucleated RBC % 0 Sodium 140 Potassium 3.7 Chloride 108 H Carbon Dioxide 22.0 Anion Gap 10 BUN 17 Creatinine 0.62 Estim Creat Clear Calc 132.36 Est GFR (MDRD) Af Amer 141 Est GFR (MDRD) Non-Af 117 BUN/Creatinine Ratio 27.6 H Glucose 136 H Calcium 9.2 Total Bilirubin 0.40 AST 28 ALT 30 Alkaline Phosphatase 76 Total Protein 8.0 Albumin 4.2 Globulin 3.8 Albumin/Globulin Ratio 1.1 Lipase 64 L Urine Color Urine Clarity Urine pH Ur Specific [place] Urine Protein Urine Glucose (UA) Urine Ketones Urine Occult Blood Urine Nitrite Urine Bilirubin Urine Urobilinogen Ur Leukocyte Esterase Urine RBC Urine WBC Ur Squamous Epith Cells Urine Bacteria Urine Mucus Urine Test Negative 07/24/19 19:35 WBC RBC Hgb Hct MCV MCH MCHC RDW Std Deviation RDW Coeff of Amrit Plt Count MPV Immature Gran % (Auto) Neut % (Auto) Lymph % (Auto) [place] % (Auto) Eos % (Auto) Baso % (Auto) Absolute Neuts (auto) Absolute Lymphs (auto) Nucleated RBC % Sodium Potassium Chloride Carbon Dioxide Anion Gap BUN Creatinine Estim Creat Clear Calc Est GFR (MDRD) Af Amer Est GFR (MDRD) Non-Af BUN/Creatinine Ratio Glucose Calcium Total Bilirubin AST ALT Alkaline Phosphatase Total Protein Albumin Globulin Albumin/Globulin Ratio Lipase Urine Color Yellow Urine Clarity Clear Urine pH 6.0 Ur Specific [place] 1.025 Urine Protein 30 H Urine Glucose (UA) Normal Urine Ketones 150 H Urine Occult Blood 150 H Urine Nitrite Negative Urine Bilirubin Negative Urine Urobilinogen Normal Ur Leukocyte Esterase Negative Urine RBC 0-5 SEEN Urine WBC 0 SEEN Ur Squamous Epith Cells 0 SEEN Urine Bacteria 0 SEEN Urine Mucus RARE Urine Test - Medical Decision Making As above, labs relatively unremarkable. I do not think there is any indication here for CT, especially since her significant other has similar symptoms. She was initially treated with IV fluids, Zofran, Toradol, GI cocktail, and intramuscular Bentyl. She had some improvement, but still nauseated and was given Reglan. She is tolerating oral fluids, I suspect either an infectious or alcohol related gastroenteritis syndrome, supportive care advised and return if worse. ED Disposition - Plan for ED Patient: Disposition: Home or Assisted Living Diagnosis: Gastroenteritis, Diffuse abdominal pain Instructions: ED Vomiting and Diarrhea Nonspecific Adult Prescriptions: proMETHazine tablet [Phenergan] 25 mg PO Q6H PRN PRN #10 tab PRN Reason: Nausea Transmission Status: Pending to [facility] Referrals: Free Rosalba,Ceci Olivas [Primary Care Provider] - 3-5 Days if not improving
[2019-07-24 18:05] LABS: Absolute Lymphocyte Count 0.74 X10^3/uL (0.83-4.51); Absolute Neutrophil Count 9.1 X10^3/uL (2.0-7.7); Basophil# 0.01 X10^3/uL; Basophil% 0.1 % (0-1); Eosinophil# 0.01 X10^3/uL; Eosinophils% 0.1 % (0-5); Hematocrit 42.5 % (37-47); Hemoglobin 14.6 g/dL (12.0-15.0); Lymphocyte # 0.74 X10^3/ul (4.0); Lymphocyte % 7.4 % (19-41); Mean Corp Hgb Conc 34.4 g/dL (32-36); Mean Corpuscular Hgb 30.5 pg (27.0-32.0); Mean Corpuscular Volume 88.9 fL (81-99); Monocyte# 0.15 X10^3/uL; Monocyte% 1.5 % (0-10); NRBC Flagged by Analyzer 0 % (0-5); Neutrophil # 9.07 X10^3/uL (2.7-7.7); Neutrophil % 90.6 % (47-70); Platelet Count 162 K/mm3 (150-450); RBC Distribution Width CV 12.7 % (11.6-14.6); RBC Distribution Width SD 41.8 fl (35.1-43.9); Red Blood Count 4.78 M/mm3 (4.2-5.4)
[2019-07-24] MEDS: 0.9% Normal Saline 1,000 ML 1000 ML IV (18:05)
[2019-07-24] MEDS: Dicyclomine 20 MG/2 ML Vial IM (18:05)
[2019-07-24] MEDS: Ketorolac 30 MG/ML Syringe IV (18:06)
[2019-07-24] MEDS: Ondansetron 4 MG/2 ML Vial IV (18:06)
[2019-07-24] MEDS: Mag Hydrox/Al Hydrox/Simeth 30 ML UDC PO (18:06)
[2019-07-24 18:35] LABS: ALB/GLOB Ratio 1.1 RATIO (0.9-2.4); AST(SGOT) 28 U/L (15-37); Alanine Aminotransfer ALT/SGPT 30 U/L (13-56); Albumin, Serum 4.2 g/dL (3.2-5.0); Alkaline Phosphatase 76 U/L (45-117); Anion Gap 10 (5-15); BUN 17 mg/dL (7-18); BUN/Creat Ratio 27.6 RATIO (10-20); Calcium,Total 9.2 mg/dL (8.5-10.1); Chloride 108 mmol/L (98-107); Creatinine, Serum 0.62 mg/dL (0.55-1.02); EST Glomerular Filtration Rate 117 mL/min (>60); Est Glom Filt Rate - Afr Amer 141 mL/min (>60); Estimated Creatinine Clearance 132.36 ml/min; Globulin 3.8 g/dL (2.2-4.2); Glucose 136 mg/dL (74-106); Lipase 64 U/L (73-393); Potassium 3.7 mmol/L (3.5-5.1); Sodium Level 140 mmol/L (136-145)
[2019-07-24] MEDS: Metoclopramide 10 MG/2 ML Vial IV (19:19)
[2019-07-24 19:41] LABS: Bacteria 0 SEEN /hpf (None Seen); Squamous Epithelial Cells - UA 0 SEEN /hpf (5-10); White Blood Cells 0 SEEN /hpf (0-5)
[2019-07-24 19:46] LABS: Color, Urine Yellow (Yellow); Glucose, Dipstick Normal (Normal); Leukocyte Esterase-Dipstick Negative /ul (Negative); Nitrite-Dipstick Negative (Negative); Occult Blood-Urine 150 /ul (Negative); Protein-Dipstick 30 mg/dl (Negative); Specific Gravity, Urine 1.025 (1.002-1.030); Urine Bilirubin Dipstick Negative (Negative); Urine Clarity Clear (Clear); Urine Urobilinogen Normal (Normal)
[2019-07-24 19:47] LABS: Internal QC Validated? YES +Cl - CLEAR BKGD; Pregnancy, Urine Negative Negative
[2019-07-24 20:00] LABS: Ketone-Dipstick 150 mg/dl (Negative)
[2019-07-24 20:28] LABS: Mucous, Urine RARE /hpf (<or=2+); Red Blood Cells-Urine 0-5 SEEN /hpf (0-5)
[2019-07-24 21:06] VITALS: BP 143/86; PULSE 72; RESP 16; O2SAT 97
--- OUTSIDE RECORDS SUMMARY | 2019-12-11 05:24 | XMS RPT_ITS | CCD ---
:1985 External Reference #:[id number] Author Organization [employer] Care Team Providers Name Role Phone Unavailable Unavailable Unavailable Results Result Name Value Range Unit Interpretation Flag Date Location progress on 2018-09 PROGRESS HNO ID: [id number] Normal 10-05-2018 [facility] Author: Ciara Hernandez) Amie Kunz ([id number]) Service: ? Author Type: Physician Offset Plate Preparation Supervisor Type: Progress Notes Filed: 10/05/2018 4:24 PM Note Text: 10/05/2018 Patient presents with: Nausea AND Vomiting: x 3 days Diarrhea: x 3 days SUBJECTIVE: This is a 33 year old that is here today for Com plaint(s) of nausea and vomiting x 3 days ago. + diarrhea. Vomiting and d iarrhea yesterday varied from 30 minutes to a couple hours in freque ncy. Last episode of vomiting/diarrhea at 6 am. Not eating foods. Not drinking fluids. + dizziness. Normal urination. Denies blood in stool s, black or tarry stools. Denies cough, congestion, SOB, wheezing No past medical history on file. ALLERGIES Penicillins MEDICATIONS No current outpatient medications on file. No current facility-administered medications for this visit. SOCIAL HISTORY Social History Socioeconomic History Marital status: Single Spouse name: Not on file Number of children: Not on file Years of education: Not on file Highest education level: Not on file Occupational History Not on file Social Needs Financial resource strain: Not on file Food insecurity: Worry: Not on file Inability: Not on file Transportation needs: Medical: Not on file Non-medical: Not on file Tobacco Use Smoking status: Current Every Day Smoker Smokeless tobacco: Never Used Substance and Sexual Activity Alcohol use: Not on file Drug use: Not on file Sexual activity: Not on file Lifestyle Physical activity: Days per week: Not on file Minutes per session: Not on file Stress: Not on file Relationships Social connections: Talks on phone: Not on file Gets together: Not on file Attends rastafari service: Not on file Active member of club or organization: Not on file Attends meetings of clubs or organizations: Not on file Relationship status: Not on file Intimate partner violence: Fear of current or ex partner: Not on file Emotionally abused: Not on file Physically abused: Not on file Forced sexual activity: Not on file Other Topics Concerns: Not on file Social History Narrative Not on file REVIEW OF SYSTEMS See HPI OBJECTIVE: BP 98/76 Pulse 88 Temp 36.1 ?C (97 ?F) (Tympanic) Resp 16 Wt 81 kg (178 lb 9.6 oz) LMP 10/04/2018 SpO2 96% APPEARANCE Well appearing, alert, in no acute distress, well -hydrated, well nourished. EYES PERRLA, conjunctiva and sclera normal. EARS External ears normal, canals clear NOSE/SINUS Nares normal. Septum midline. Mucosa normal. No d rainage or sinus tenderness. THROAT normal, no erythema NECK Supple, no adenopathy; thyroid symmetric, normal size, no bruits HEART RRR with normal S1 and S2, no murmurs, no gallops, no JVD appreciated LUNG clear to auscultation ASSESSMENT/PLAN: 1. Vomiting and diarrhea - ICD9: 787.03, 787.91, ICD10: R11. 10, R19.7 Suspect viral etiology Patient information printed Fluids, rest, small frequent sips Advance diet slowly as tolerating after tolerating liquids f or 24 hours Reviewed red flags and when to seek care sooner. The patient indicates understanding of these issues and agre es with the plan. F/u in 24-48 hours if not resolving, sooner if worsening Ciara Springer PA-C 10/05/2018 cnov on 2018-10-05 [facility]OV Office Visit ([facility]) Normal 10-06-19 19 [facility] CLEM LAU ([id number]) 1985 F Kunz Date Time Provider Department ([id number]) 10/05/18 11:30 AM CIARA SPRINGER) [facility] During your visit today, we recorded the following informati on about you: Temperature Pulse Respiration Blood pressure 97 degrees 88/minute 16/minute 98/76 Weight Last Period 81 kg 10/04/18 Ciara Springer PA-C 10/05/2018 4:24 PM Signed 10/05/2018 Patient presents with: Nausea AND Vomiting: x 3 days Diarrhea: x 3 days SUBJECTIVE: This is a 33 yea r old that is here today for Complaint(s) of nausea and vomiting x 3 days ago. + diarrhea. Vomiting and diarrhea yesterday varied from 30 minutes to a couple hours in frequency. Last episode of vomiting/diarrhea at 6 am. Not eating foods. Not drinking fl uids. + dizziness. Normal urination. Denies blood in stools, black or tarry stools. Denies cough, congestion, SOB, wheezing No past medical history on file. ALLERGIES Penicillins MEDICATIONS No current outpatient medications on file. No current facility-administered medications for this visit. SOCIAL HISTORY Social History Socioeconomic History Marital status: Single Spouse name: Not on file Number of children: Not on file Years of education: Not on file Highest education level: Not on file Occupational History Not on file Social Needs Financial resource strain: Not on file Food insecurity: Worry: Not on file Inability: Not on file Transportation needs: Medical: Not on file Non-medical: Not on file Tobacco Use Smoking status: Current Every Day Smoker Smokeless tobacco: Never Used Substance and Sexual Activity Alcohol use: Not on file Drug use: Not on file Sexual activity: Not on file Lifestyle Physical activity: Days per week: Not on file Minutes per session: Not on file Stress: Not on file Relationships Social connections: Talks on phone: Not on file Gets together: Not on file Attends rastafari service: Not on file Active member of club or organization: Not on file Attends meetings of clubs or organizations: Not on file Relationship status: Not on file Intimate partner violence: Fear of current or ex partner: Not on file Emotionally abused: Not on file Physically abused: Not on file Forced sexual activity: Not on file Other Topics Concerns: Not on file Social History Narrative Not on file REVIEW OF SYSTEMS See HPI OBJECTIVE: BP 98/76 Pulse 88 Temp 36.1 ?C (97 ?F) (Tympanic) Resp 16 Wt 81 kg (178 lb 9.6 oz) LMP 10/04/2018 SpO2 96% APPEARANCE Well appearing, alert, in no acute distress, we ll-hydrated, well nourished. EYES PERRLA, conjunctiva and sclera normal. EARS External ears normal, canals clear NOSE/SINUS Nares normal. Septum midline. Mucosa normal . No drainage or sinus tenderness. THROAT normal, no erythema NECK Supple, no adenopathy; thyroid symmetric, normal size, no bruits HEART RRR with normal S1 and S2, no murmurs, no gallops, n o JVD appreciated LUNG clear to auscultation ASSESSMENT/PLAN: 1. Vomiting and diarrhea - ICD9: 787.03, 787.91, ICD10: R11. 10, R19.7 Suspect viral etiology Patient information printed Fluids, rest, small frequent sips Advance diet slowly as tolerating after tolerating liquids f or 24 hours Reviewed red flags and when to seek care sooner. The patient indicates understanding of these iss ues and agrees with the plan. F/u in 24-48 hours if not resolving, sooner if worsening Ciara Springer PA-C 10/05/2018 Ciara Springer PA-C 10/05/2018 11:41 AM Signed GASTROENTERITIS DESCRIPTION: Irritation and infection of the digestive tract that can often cause sudden and sometimes violent upsets. Ga stroenteritis may be confused with spastic colitis. It affects all ages but is most severe in young children ( 1 to 5 years) and adults over 60. FREQUENT SIGNS AND SYMPTOMS: -Nausea that sometimes causes vomiting. -Diarrhea that ranges from 2 or 3 loose stools to many water y stools. -Abdominal cramps, pain or tenderness. -Appetite loss. -Fever. -Weakness. CAUSES: -A variety of viruses, bacteria or parasites that have con taminated food or water. -Food poisoning. -Use of harsh laxatives. -Change in bacteria that normally live in the intestinal tra ct. -Chemical toxins in certain plants, seafood, or contaminated food. -Heavy metal poisoning. RISK INCREASES WITH: -Adults over 60. -Newborns and infants. -Improper diet. -Excess alcohol consumption. -Use of drugs, such as aspirin, nonstero idal anti-inflammatories, antibiotics, laxatives, cortisone or caffeine. -Travel to foreign countries. PREVENTIVE MEASURES: -Wash hands frequently if you or someone around you has marialuisa roenteritis. -Avoid as many causes and risks mentioned above as possible. -Take care with food preparation. TREATMENT: GENERAL MEASURES: -Diagnostic tests may include laboratory studies of blood an d stool. -Treatment is usually supportive (rest, fluids). -Mild cases are usually treated at home. -It is not necessary to isolate persons with gastroenteritis . -Hospitalization, if dehydration is severe. MEDICATIONS: -Medicine is usually not necessary. If g astroenteritis is severe or prolonged, you may be prescribed antinausea and antidiarrheal medicatio n. -Certain bacteria and parasites may require specific antibio tic treatment. ACTIVITY: Rest in bed until nausea, vomiting, diarrhea and fever are g one. DIET: -Suck ice chips or drink small amounts of clear fluids frequ ently. -After diarrhea and vomiting stop, drink small a julia of clear liquids, such as tea, flat augusto aracelis or lemon-te-moak soda, broth and allison tin. -If liquids are tolerated for 12 hours, eat smal l amounts of soft foods, such as cooked cereal, rice, eggs, custard, baked potato and yogu rt. -If soft food is tolerated for 2 - 3 days, gradu ally return to a normal diet. Avoid alcohol, spicy food (p solange, spaghetti, onions), gravy raw vegetables, raw fruit, salad dressing, cream soup, coffee and milk for sever al days. NOTIFY OFFICE: -Symptoms of gastroenteritis persist longer than 2 days. -The following occur during treatment: Mucus or blood in the stool. Fever of 101 degrees F (38.3 degrees C) or higher. Abdominal swelling. Severe pain in the abdomen or rectum especially pain that be gins in the center and moves to the lower right side. -Vomiting and diarrhea recur after treatment. -Signs of dehydration, such as dry mouth, wrinkled skin, exc ess thirst or decreased urination, develop. Referring Provider: SELF [[id number]] Allergies As of Date: 10/05/2018 Noted Allergy Reaction PENICILLINS 10/05/2018 10 - Anaphylaxis Date Reviewed: 10/05/2018 Reviewed by: Susannah Molina Cma - Fully Assessed Reason for Visit: Nausea AND Vomiting [237] Cmt: x 3 days Diarrhea [35] Cmt: x 3 days Primary Visit Diagnosis:Vomiting and diarrhea [R11.10, R19.7 ] Problem List As Of Date: 10/05/2018 (None) Other instructions from your clinician: GASTROENTERITIS DESCRIPTION: Irritation and infection of the digestive tract that can oft en cause sudden and sometimes violent upsets. Gastroenteritis may be confused with spastic colitis. It affects all ages but is most severe in y oung children (1 to 5 years) and adults over 60. FREQUENT SIGNS AND SYMPTOMS: -Nausea that sometimes causes vomiting. -Diarrhea that ranges from 2 or 3 loose stools to many water y stools. -Abdominal cramps, pain or tenderness. -Appetite loss. -Fever. -Weakness. CAUSES: -A variety of viruses, bacteria or parasites that have conta minated food or water. -Food poisoning. -Use of harsh laxatives. -Change in bacteria that normally live in the intestinal tra ct. -Chemical toxins in certain plants, seafood, or contaminated food. -Heavy metal poisoning. RISK INCREASES WITH: -Adults over 60. -Newborns and infants. -Improper diet. -Excess alcohol consumption. -Use of drugs, such as aspirin, nonsteroidal anti-inflammato luis, antibiotics, laxatives, cortisone or caffeine. -Travel to foreign countries. PREVENTIVE MEASURES: -Wash hands frequently if you or someone around you has marialuisa roenteritis. -Avoid as many causes and risks mentioned above as possible. -Take care with food preparation. TREATMENT: GENERAL MEASURES: -Diagnostic tests may include laboratory studies of blood an d stool. -Treatment is usually supportive (rest, fluids). -Mild cases are usually treated at home. -It is not necessary to isolate persons with gastroenteritis . -Hospitalization, if dehydration is severe. MEDICATIONS: -Medicine is usually not necessary. If gastroenteritis is se will or prolonged, you may be prescribed antinausea and antidiarrhea l medication. -Certain bacteria and parasites may require specific antibio tic treatment. ACTIVITY: Rest in bed until nausea, vomiting, diarrhea and fever are g one. DIET: -Suck ice chips or drink small amounts of clear fluids frequ ently. -After diarrhea and vomiting stop, drink small amounts of cl ear liquids, such as tea, flat augusto aracelis or lemon-te-moak soda, broth and gelatin. -If liquids are tolerated for 12 hours, eat small amounts of soft foods, such as cooked cereal, rice, eggs, custard, baked potato and yogurt. -If soft food is tolerated for 2 - 3 days, gradually return to a normal diet. Avoid alcohol, spicy food (pizza, spaghetti, onions), gravy raw vegetables, raw fruit, salad dressing, cream soup, coffee an d milk for several days. NOTIFY OFFICE: -Symptoms of gastroenteritis persist longer than 2 days. -The following occur during treatment: Mucus or blood in the stool. Fever of 101 degrees F (38.3 degrees C) or higher. Abdominal swelling. Severe pain in the abdomen or rectum especially pain that be gins in the center and moves to the lower right side. -Vomiting and diarrhea recur after treatment. -Signs of dehydration, such as dry mouth, wrinkled skin, exc ess thirst or decreased urination, develop. Letter Text Encounter Status:Closed by CIARA SPRINGER PA-C on 9 Summary Purpose Family History No Family History Records Found Advance Directives No Advanced Directives Records Found Additional Source Comments FOR RECORDS PERTAINING TO PATIENTS WHO ARE OR HAVE BEEN ENROLLED IN A CHEMICAL DEPENDENCY/SUBSTANCE ABUSE PROGRAM, SOME INFORMATION MAY BE OMITTED. This clinical summary was aggregated from multiple sources. Caution should be exercised in using it in the provision of clinical care. This summary normalizes information from multiple sources, and as a consequence, information in this document may materially changethe coding, format and clinical context of patient data. In addition, data may be omittedin some cases. CLINICAL DECISIONS SHOULD BE BASED ON THE PRIMARY CLINICAL RECORDS. [facility] provides no warranty or guarantee of the accuracy or completeness of information in this document. UNRECOGNIZED CONTENT PROVIDED BELOW FOR UNRECOGNIZED SECTION INFORMATION SOURCE DATE CREATED AUTHOR AUTHOR'S ORGANIZATIO N 10/05/2018 [facility]
--- OUTSIDE RECORDS SUMMARY | 2019-12-11 05:27 | XMS RPT_ITS | CCD ---
:1985 External Reference #:[id number] Author Organization [employer] Care Team Providers Name Role Phone Unavailable Unavailable Unavailable Results Result Name Value Range Unit Interpretation Flag Date Location progress on 2018-09 PROGRESS HNO ID: [id number] Normal 10-05-2018 [facility] Author: Ciara Hernandez) Amie Kunz ([id number]) Service: ? Author Type: Physician Microelectronics Engineer Type: Progress Notes Filed: 10/05/2018 4:24 PM [...] file Gets together: Not on file Attends protestant service: Not on file Active member of [...] [facility]OV Office Visit ([facility]) Normal 10-06-19 19 [facility] CLEM LAU ([id number]) 1985 F Kunz Date Time Provider Department ([id number]) 10/05/18 11:30 AM CIARA SPRINGER) [facility] During [...] file Gets together: Not on file Attends protestant service: Not on file Active member of [...] such as tea, flat augusto aracelis or lemon-augustine soda, broth and allison tin. -If liquids [...] such as tea, flat augusto aracelis or lemon-augustine soda, broth and gelatin. -If liquids are [...] BE BASED ON THE PRIMARY CLINICAL RECORDS. [facility] provides no warranty or guarantee of the accuracy or completeness of information in this document. UNRECOGNIZED CONTENT PROVIDED BELOW FOR UNRECOGNIZED SECTION INFORMATION SOURCE DATE CREATED AUTHOR AUTHOR'S ORGANIZATIO N 10/05/2018 [facility]
== END 2019-07-24 21:07 | disposition home or self-care (01) ==
LOC: ED 21:01
PROVIDERS: Emergency Provider Emergency Medicine; PCP Nurse Practitioner Family
DX: K52.9 Noninfective gastroenteritis and colitis, unspecified (principal); F17.200 Nicotine dependence, unspecified, uncomplicated; Z88.0 Allergy status to penicillin
CPT/HCPCS: 80053; 81001; 81025; 83690; 85025; 96361; 96372; 96374; 96375; 99283; J7030; A4216; J2405

== ENCOUNTER → 2019-08-04 15:11 | Outpatient (CLI) | payer MEDICAID, SELFPAY ==
[2019-08-04 15:07] VITALS: BMI 27.3
--- NOTE | 2019-08-04 15:12 | RAD_ITS ---
STUDY: X-RAY - RIGHT WRIST REASON FOR EXAM: Female, 33 years old. BILATERAL WRIST PAIN TECHNIQUE: 3 view(s) of the wrist were obtained. COMPARISON: Left wrist dated August 04, 2019 FINDINGS: Normal visualized distal radius and ulna. Normal radiocarpal articulation. Normal distal radioulnar articulation. Normal carpal bones. Normal carpal articulations. Normal carpometacarpal articulation of the thumb. Normal second through fifth carpometacarpal articulations. Normal visualized metacarpal bones. The soft tissue structures are unremarkable. RAD/Wrist min 3 Views IMPRESSION: Within normal limits x-ray examination of the wrist. Electronically Signed: Shima Vaughn MD at 16:15 EDT Tel , Service support ,
--- NOTE | 2019-08-04 15:12 | RAD_ITS ---
STUDY: X-RAY - LEFT WRIST REASON FOR EXAM: Female, 33 years old. BILATERAL WRIST PAIN TECHNIQUE: 3 view(s) of the wrist were obtained. COMPARISON: Right wrist dated August 04, 2019 FINDINGS: Normal visualized distal radius and ulna. Normal radiocarpal articulation. Normal distal radioulnar articulation. Normal carpal bones. Normal carpal articulations. Normal carpometacarpal articulation of the thumb. Normal second through fifth carpometacarpal articulations. Normal visualized metacarpal bones. The soft tissue structures are unremarkable. RAD/Wrist min 3 Views IMPRESSION: Within normal limits x-ray examination of the wrist. Electronically Signed: Shima Vaughn MD at 16:16 EDT Tel , Service support ,
--- OUTSIDE RECORDS SUMMARY | 2019-12-11 12:00 | XMS RPT_ITS | CCD ---
:1985 External Reference #:[id number] Author Organization [employer] Care Team Providers Name Role Phone Unavailable Unavailable Unavailable Results Result Name Value Range Unit Interpretation Flag Date Location progress on 2018-09 PROGRESS HNO ID: [id number] Normal 10-05-2018 [facility] Author: Ciara Hernandez) Amie Kunz ([id number]) Service: ? Author Type: Physician Toy Painter Type: Progress Notes Filed: 10/05/2018 4:24 PM [...] file Gets together: Not on file Attends nondenominational service: Not on file Active member of [...] CNOV Office Visit ([facility]) Normal 10-06-19 19 [facility] CLEM LAU ([id number]) 1985 F Kunz Date Time Provider Department ([id number]) 10/05/18 11:30 AM CIARA SPRINGER) [facility] During [...] file Gets together: Not on file Attends nondenominational service: Not on file Active member of [...] such as tea, flat augusto aracelis or lemon-[place] soda, broth and allison tin. -If liquids [...] such as tea, flat augusto aracelis or lemon-[place] soda, broth and gelatin. -If liquids are [...] BE BASED ON THE PRIMARY CLINICAL RECORDS. [facility] provides no warranty or guarantee of the accuracy or completeness of information in this document. UNRECOGNIZED CONTENT PROVIDED BELOW FOR UNRECOGNIZED SECTION INFORMATION SOURCE DATE CREATED AUTHOR AUTHOR'S ORGANIZATIO N 10/05/2018 [facility]
== END ==
PROVIDERS: PCP Nurse Practitioner Family; Referring Provider Physician Assistant; Visit Provider Physician Assistant
DX: M25.531 Pain in right wrist (principal); M25.532 Pain in left wrist
CPT/HCPCS: 73110

== ENCOUNTER 2019-09-14 11:18 | Day surgery (SDC) | payer MEDICAID, SELFPAY ==
[2019-08-04 15:07] VITALS: BMI 27.3
[2019-09-14] VITALS (9 sets, daily range): BP systolic 108–136; BP diastolic 76–102; PULSE 58–87; RESP 16; TEMP 36.2–37.2; O2SAT 93–100; BMI 29.0
[2019-09-14 11:54] LABS: Internal QC Validated? YES +Cl - CLEAR BKGD
[2019-09-14 11:55] LABS: Pregnancy, Urine Negative Negative
[2019-09-14] MEDS: Lactated Ringers 1,000 ML 100 ML IV (12:00)
[2019-09-14] MEDS: Triamcinolone Acetonide 40 MG/ML Vial (14:25)
[2019-09-14] MEDS: Bupivacaine Mpf 0.5% 30 ML VIAL (14:25)
--- NOTE | 2019-09-14 14:33 | PCM.HP.BLA ---
History and Physical I have re-examined the patient. There are no clinical changes since date of exam. Intake Vital Signs 08/04/19 BMI 27.3 Intake Visit Reasons: Bilat wrist Is patient in pain?: Yes Allergies Penicillins Allergy (Verified 08/04/19 15:07) Anaphylaxis [facility] Social History (Updated 08/05/19 @ 15:32 by SEBASTIAN Olvera) Smoking Status: Current some day smoker HPI Bilat wrist: Details: Parts of this documentation were recorded by a scribe, this documentation accurately reflects the service provided and the decisions made by me, SEBASTIAN Olvera 08/04/19 1500. CLEM LAU is a 33 year old F here today for bilateral wrist pain, right greater than left. Patient states that she has had pain for a few years. She states that she has an indentation over her thumb for a few years. She states that she has good range of motion. Patient notes that she has decreased sensation over her thumb, index and middle finger. She states that she is dropping items due to decreased sensation. Patient notes that she had an EMG on 06/15/19. Patient denies any physical therapy or bracing. Patient denies any xrays or MRI. Patient states that her symptoms are worse at night. She takes ibuprofen or tylenol for pain. ROS Musc Reports joint pain, Reports numbness, Reports tingling Skin/Breast Reports system reviewed and no additional complaints, except as docu Neuro Yes system reviewed and no additional complaints, except as docu, Yes numbness, Yes tingling Ortho Exam Right Wrist/Hand Skin/Wound: No Swelling, No Ecchymosis Right Wrist: Yes ROM-Extension 0-60, ROM-Flexion 0-80, Durken's Test, Tinel's and Thenar Atrophy (moderate atrophy); no TTP TFCC or Hypothenar Atrophy Sensation: Radial: D, Ulnar: I WRIST: Inspection of the wrist shows no generalized or localized swelling. There is no other skin changes. Patient does have evident atrophy of the thenar eminence compared to the left side. She does have full range of motion of the wrist. There is evident decreased sensation with the median nerve distribution. She does have normal distal radial pulses and capillary refill. Left Wrist/Hand Skin/Wound: No Swelling, No Ecchymosis Left Wrist: Yes ROM-Extension 0-60, Yes ROM-Flexion 0-80 and Yes Durken's Test; no Tinel's or no Thenar Atrophy Sensation: Median: D WRIST: No acute abnormalities on inspection. Patient is full range of motion and strength. Minor decrease for the median nerve. She has normal distal radial pulses and capillary refill. Assessment & Plan Problems 1. Right carpal tunnel syndrome G56.01 2. Left carpal tunnel syndrome G56.02 Plan Patient presents to the office with many years history of decreased sensation of bilateral hands. Patient has evidence atrophy of the right thenar eminence. At this time we did discuss treatment options and really with the amount of atrophy noted already at her age surgical intervention at this point is warranted. Patient states that she would really like to have these done at this point and is ready for the surgery. Risks and benefits of the surgery were discussed with patient in office today. All her questions were answered. Consent was signed in office today. At this point patient will be receiving a phone call from our office to set up the day of the surgery. She will then be contacted by the surgery department for preanesthesia testing. Patient would not know the time of surgery her surgery until the day before. Patient was given antimicrobial scrub to be used the night before and the morning of her surgery. We are going to be proceeding with a right carpal tunnel release as well as a left carpal tunnel injection. At that point will consider proceeding with surgical intervention on the left side when she heals up at least 6 weeks after. Patient to notify office in the meantime if she has any other questions. Reviewed the pre-operative plans with the patient. Risks and benefits of the procedure were fully explained, including but not limited to infection, neurovascular injury, continued pain, arthritis, stiffness, need for further surgery, re-injury, DVT, PE, general risks of anesthesia, and loss of limb or life. The patient understands all the risks and does wish to proceed with written consent. We discussed the current risk associated COVID-19. While it is understood that there is a community spread of COVID 19 the risk of jamar COVID-19 while at [facility] is very low, however, the risk cannot be completely mitigated because of the community spread of the disease. We discussed in detail the risk of exposure to and or potential harm posed by the COVID-19 virus with having a surgery/procedure at this time versus the risk of delaying the surgery/procedure. Is not possible to know either the risk of delaying the surgery procedure or chance of getting an infection with perfect accuracy, but a joint decision was made to proceed at this time with a schedule surgery/procedure as indicated on the consent form. Patient was notified that we will need to comply with any screening or testing [facility] wishes to perform or that surgery may be delayed for any positive results. This note was generated with [employer] software. It may contain incorrect words, spelling, and punctuation that were not noted in checking the note before signing. Orders Orders: Wrist min 3 Views Today M25.531, M25.532 Wrist min 3 Views 08/04/19 M25.531, M25.532 Wrist min 3 Views 08/04/19 M25.531, M25.532 Coding Level of Care Code Off vis,new,level 3 Diagnoses Right carpal tunnel syndrome G56.01 Left carpal tunnel syndrome G56.02
[2019-09-14] MEDS: Mupirocin Ointment 22gm Tube 1 APPLIC (14:34)
--- NOTE | 2019-09-14 14:34 | DCINST_ITS ---
Discharge Diet: No Restrictions - Leave dressing on until seen in postop clinic in 10-14 days for suture removal, keep dressing clean, dry, intact; change dressing if gets wet/dirty, call with concerns Discharge Activity: May Not Drive May shower in (days): 1 Ice area for (Minutes): 20 - Every hour while awake. Weight Bearing Status: Weight bearing as tolerated Keep extremity elevated above heart level: Operative Extremity Call your doctor if your incision/area has: Continuous Slow Oozing, Sudden Increased Bleeding, Increased Pain/ Swelling, Increased Redness, Foul Smelling Discharge Call your doctor if you observe: Fever of 101 or Higher, Coldness, Increased Pain, Numbness or Tingling, Change in Color, Calf discomfort Allergies/Adverse Reactions: Allergies Penicillins Allergy (Verified 09/14/19 11:40) Anaphylaxis Medications to take at Discharge Naproxen [Naprosyn] 500 mg PO BID PRN #20 tab 03/14/19 Omeprazole [Prilosec] 20 mg PO DAILY 07/24/19 Iud 0 mg VAGINAL DAILY 09/06/19 Oxycodone HCl/Acetaminophen [Percocet 5/325] 1 - 2 tab PO Q6H PRN PRN 5 Days #28 tab 09/14/19 The following prescriptions were given: Oxycodone HCl/Acetaminophen [Percocet 5/325] 1 - 2 tab PO Q6H PRN PRN 5 Days #28 tab PRN Reason: Pain Transmission Status: Sent to [facility] Orders to be completed after discharge: CORONAVIRUS 19, ASHOK SCREEN Time Frame: 09/09/19, Facility: [facility], Location: Laboratory Primary Care Physician: Ceci Kirby [Primary Care Provider] - Test Results: Test results from this visit will be discussed in further detail at your follow- up appointment, if applicable. Please Follow Up With: Geena Akhtar, DO - [phone]
--- NOTE | 2019-09-14 14:35 | OP.PCM_ITS ---
Report of Operation Date of Procedure: 09/14/19 Pre-Operative Diagnosis: bilateral carpal tunnel syndrome Post-Operative Diagnosis: same Surgery/Procedure Performed:: right carpal tunnel release, left carpal tunnel injection Type of Anesthesia:: Joshua Braun Anesthesiologist: Sina Camp Estimated Blood Loss (mL): none Fluids Replaced: 800cc Description of Procedure: Preoperative note Patient is a 62 year old patient with nerve conduction study confirming bilateral carpal tunnel syndrome. Patient failed conservative treatment for her carpal tunnel elected proceed with right carpal tunnel release left arpal tunnel injection. Risks benefits and alternatives surgery discussed with patient. Risks including but not limited to blood loss, blood clot, infection, neurovascular injury, failure procedure, loss of life and loss of limb. Patient is aware like proceed with right carpal tunnel release, left carpal tunnel injection. Operative note Patient seen and examined preoperative holding area. right hand was marked. History and physical and consent reviewed. Patient was brought to the operating room placed supine on the operating table. Sign in, anesthesia, antibiotics were administered. right upper extremity was prepped and draped after Joshua block was initiated. All bony prominences well-padded SCDs placed on bilateral lower extremities. We marked out our incisions for our carpal tunnel release at the intersection of Mauro's line in the fourth ray flexed. We extended about a centimeter and a half. Timeout was performed. We then checked ensure that the Hawthorn block was working with pickups which it was not so we performed a local block of 10cc 1% lidocaine. We then used a 15 blade to make a skin incision. We then dissected down tenotomy syllable of the transverse carpal ligament. We then used a new 15 blade cut through the transverse carpal ligament down to the level of the median nerve. We then further released the median nerve the combination of the 15 blade and tenotomies. The nerve was grayish in color and adherent to the transverse carpal ligament volarly. We released the transverse carpal ligament distally to the fat pad and then proximally under standard technique. We then palpated to ensure that we released all of the transverse carpal ligament which we did. We irrigated the incision with copious amounts of sterile saline. All bleeders were coagulated. The incision was closed with interrupted 4-0 nylon stitches. Tourniquet was deflated for total working time of 11 minutes. We then turned toward injection of her left carpal tunnel under standard technique sterile technique we then injected injected the left carpal tunnel with 1 cc bupivacaine 1/2 cc Kenalog 40. A Band-Aid was applied to the and injection site. Patient tolerated procedure well there were no complications. Patient transferred to recovery room in stable condition. Postoperative note Hospital pharmacy has prescription Leave dressing clean dry and intact Follow-up in 2 weeks Call with concerns This note was generated with [employer] dictation software. It may contain incorrect words, spelling, and punctuation that were not noted in checking the note before signing
[2019-09-14] MEDS: Ondansetron 4 MG/2 ML Vial IV (15:30)
== END 2019-09-14 16:06 | disposition home or self-care (01) ==
LOC: SDC 11:19 → AC 11:23
PROVIDERS: Anesthesiology; Referring Provider Orthopaedic Surgery; Visit Provider Orthopaedic Surgery
PROC: (CPT 64721; principal; 2019-09-14 12:50)
DX: G56.03 Carpal tunnel syndrome, bilateral upper limbs (principal); K21.9 Gastro-esophageal reflux disease without esophagitis; Z72.0 Tobacco use; Z79.899 Other long term (current) drug therapy
CPT/HCPCS: 20526; 64721; 81025; 87635; G2023; J7120; J2405; U0003

== ENCOUNTER 2019-10-07 09:30 | Outpatient (RCR) | payer MEDICAID, SELFPAY ==
[2019-09-27 09:00] VITALS: BMI 29.0
--- NOTE | 2019-10-05 14:53 | HP.OTEVAL ---
Patient's Visit Information CLEM LAU is a 34 year old F, referred to Occupational Therapy by Dr. Geena Akhtar DO, with a diagnosis of right CTS. Date of Evaluation: 09/30/19 Occupational Therapist: Samantha Stroud, OTR/Ravi, CHT - Subjective This 34 year old female was seenf or OT eval with dx of CTS. S/P 2 weeks following a right CTR. Pt states she had CTS for about 12 years and due to muscle atrophy she decided to have sx. pt states she is having pain and weakness. pt state now pain constant at this time. 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 Pt will demo an increase in lateral and tripod pinch by 2# to increase pts independent with opening baggies, containers at PLOF by D/C. Goal:: Pt will demo an increase in wrist ROM equal to unaffected wrist to return pt to PLOF with grooming, dressing and home mtg tasks by D/C. Goal:: Pt will report pain no greater than 1/10 with use of affected hand with BADLs and IADLs by d/c. Goal:: Pt will demo understanding of scar mtg. by end of 2nd session to increase tissue extensibility to limit scar adhesions and allow full tendons function by d/c. - Rehabilitation General Assessment: pt 2 weeks fron CTR and demo with limited right wrist ROM, limited composite fist noted sig. atrophy in median N. distribution. pt limited with ADLs and IADls at this time. pt would benefit from skilled OT services 2-3x week for 6 weeks to return pt to PLOC. Today therapist ed. pt on tendon glide, scar mtg and will progress with ROM and strength as pt to. pt demo understanding and agree to POC. Rehabilitation Potential: Good - Anticipated Interventions A/AAROM/PROM, Edema Control, Scar Care, Triggerpoint Release, Desensitization, Sensory Retraining, Modalities, Joint Protection/Energy Conservation, Ergonomic Education - Visit Plan Frequency: 2x /Week Duration: 6 Weeks TEXT: Thank you for the opportunity to evaluate your patient. For Medicare and Medicare HMO plans, please review the plan of care and approve it. It will need to be FAXED BACK to us at [phone] for Medicare purposes. Please let me know if there are questions or concerns regarding this plan of care. Physician Signature: Date:
--- NOTE | 2020-01-30 10:14 | HP.OT.NRP ---
CLEM LAU was seen in my office for initial evaluation on 09/30/19. The following Plan of Care was established for this patient: Initial Frequency: 2x /Week Initial Duration: 6 Weeks Plan: cont POC Anticipated Interventions: A/AAROM/PROM, Edema Control, Scar Care, Triggerpoint Release, Desensitization, Sensory Retraining, Modalities, Joint Protection/Energy Conservation, Ergonomic Education This patient was last seen in our office 10/07/19. Pertinent comments regarding their Occupational therapy will appear below: pt was seen for two OT visits cancelled her last scheduled apt and has not rescheduled. Due to time lapse in services pt d/c at this time. At this point I will be discontinuing this patient from occupational therapy. I would be happy to see this patient again in the future if found appropriate by the physician. Thank you! Samantha Stroud, OTR/L, CHT
== END 2019-10-07 19:00 | disposition home or self-care (01) ==
LOC: OT 09:30
PROVIDERS: Referring Provider Orthopaedic Surgery; Visit Provider Orthopaedic Surgery
DX: Z98.890 Other specified postprocedural states (principal)
CPT/HCPCS: 97035; 97140; 97166

== ENCOUNTER → 2019-10-11 12:09 | Outpatient (CLI) | payer MEDICAID, SELFPAY ==
[2019-09-27 09:00] VITALS: BMI 29.0
[2019-10-11 12:34] LABS: Absolute Lymphocyte Count 2.19 X10^3/uL (0.83-4.51); Absolute Neutrophil Count 1.9 X10^3/uL (2.0-7.7); Basophil# 0.02 X10^3/uL; Basophil% 0.4 % (0-1); Eosinophil# 0.37 X10^3/uL; Eosinophils% 7.6 % (0-5); Hematocrit 41.8 % (37-47); Hemoglobin 14.4 g/dL (12.0-15.0); Lymphocyte # 2.19 X10^3/ul (4.0); Lymphocyte % 45.2 % (19-41); Mean Corp Hgb Conc 34.4 g/dL (32-36); Mean Corpuscular Hgb 30.9 pg (27.0-32.0); Mean Corpuscular Volume 89.7 fL (81-99); Mean Platelet Vol. 10.8 fl (6.2-12.0); Monocyte# 0.33 X10^3/uL; Monocyte% 6.8 % (0-10); NRBC Flagged by Analyzer 0 % (0-5); Neutrophil # 1.92 X10^3/uL (2.7-7.7); Neutrophil % 39.8 % (47-70); Platelet Count 145 K/mm3 (150-450); RBC Distribution Width CV 12.4 % (11.6-14.6); RBC Distribution Width SD 40.7 fl (35.1-43.9); Red Blood Count 4.66 M/mm3 (4.2-5.4); White Blood Count 4.8 K/mm3 (4.4-11.0)
== END ==
PROVIDERS: Referring Provider Nurse Practitioner Family
DX: K21.9 Gastro-esophageal reflux disease without esophagitis (principal); R13.10 Dysphagia, unspecified
CPT/HCPCS: 36415; 85025; 86677

== ENCOUNTER → 2020-03-02 16:27 | Outpatient (CLI) | payer MEDICAID, SELFPAY ==
[2019-09-27 09:00] VITALS: BMI 29.0
[2020-03-02 16:56] LABS: Absolute Lymphocyte Count 2.37 X10^3/uL (0.83-4.51); Absolute Neutrophil Count 1.9 X10^3/uL (2.0-7.7); Basophil# 0.01 X10^3/uL; Basophil% 0.2 % (0-1); Eosinophil# 0.36 X10^3/uL; Eosinophils% 7.3 % (0-5); Hematocrit 38.8 % (37-47); Lymphocyte # 2.37 X10^3/ul (4.0); Lymphocyte % 48.1 % (19-41); Mean Corp Hgb Conc 33.5 g/dL (32-36); Mean Corpuscular Hgb 29.5 pg (27.0-32.0); Mean Platelet Vol. 10.8 fl (6.2-12.0); Monocyte# 0.32 X10^3/uL; Monocyte% 6.5 % (0-10); NRBC Flagged by Analyzer 0 % (0-5); Neutrophil # 1.86 X10^3/uL (2.7-7.7); Neutrophil % 37.7 % (47-70); Platelet Count 117 K/mm3 (150-450); RBC Distribution Width CV 13.8 % (11.6-14.6); RBC Distribution Width SD 44.5 fl (35.1-43.9); Red Blood Count 4.41 M/mm3 (4.2-5.4); White Blood Count 4.9 K/mm3 (4.4-11.0)
[2020-03-05 18:50] LABS: H. Pylori Antibody (IgG) 1.57 (0.00-0.79)
== END ==
DX: R13.10 Dysphagia, unspecified (principal)
CPT/HCPCS: 36415; 85025; 86677

== ENCOUNTER 2020-03-12 16:02 | Emergency (ER) | payer MEDICAID, SELFPAY ==
[2019-09-27 09:00] VITALS: BMI 29.0
[2020-03-12 16:03] VITALS: BP 139/99; PULSE 91; RESP 18; TEMP 35.4; O2SAT 95; BMI 27.3
--- NOTE | 2020-03-12 16:57 | ED.DCSUM_ITS ---
History of Present Illness Chief Complaint: Allergic Reaction Informant: Patient Narrative: Patient is a 34-year-old previously healthy female who presents to the emergency department for throat pain. She is currently being treated for H. pylori infection. She was started on levofloxacin, clarithromycin and omeprazole on the . 2 days after starting the antibiotics she started developing sore throat. She noticed today that she had white spots on her tongue. She denies any difficulty with breathing. No issues handling her secretions. No rashes elsewhere. No significant oral swelling. She felt like one of the pills did get stuck in the back of her throat but this since resolved. No issues drinking water. She denies any significant abdominal pain. No chest pain or shortness of breath. She denies a cough. She does have a previous history of allergic reaction to penicillins. Otherwise no other exposures. Past Medical History - Allergies and Home Meds Allergies/Adverse Reactions: Allergies Penicillins Allergy (Verified 03/12/20 16:05) Anaphylaxis Primary Care Physician: [facility],Ceci Olivas [Primary Care Provider] - 3-5 Days Prior records reviewed: Yes Past Medical History: None Surgical History: - - section Smoking Status: Current every day smoker Review of Systems All systems negative except as indicated General: Denies: Chills, Fever, Sweats Eyes: Denies: Visual changes - bilaterally, Diplopia ENT: Reports: Sore throat. Denies: Rhinorrhea Cardiovascular: Denies: Chest pain, Palpitations Respiratory: Denies: Dyspnea, Cough, Dyspnea on exertion Gastrointestinal: Denies: Abdominal pain, Nausea, Vomiting, Diarrhea, Melena, Hematochezia Genitourinary: Denies: Dysuria, Hematuria, Frequency Musculoskeletal: Denies: Back pain, Extremity Pain Skin: Denies: Rash, Wounds Neurological: Denies: Headache, Weakness, Numbness Physical Exam Vital Signs/Narrative: Vital Signs Temp Pulse Resp BP Pulse Ox 03/12/20 16:03 95.8 F L 91 18 139/99 H 95 Inital Vital Signs reviewed: Yes General: Well nourished, Well developed, No Acute Distress Head: Normocephalic, Atraumatic Eyes: Perrl, EOMI ENT: Moist mucous membranes, No rhinorrhea, - - There are white plaques on the tongue that are able to be scraped off. There are few of these lesions on the tonsils bilaterally no significant oral swelling. Uvula midline. No stridor. Neck: Supple, Nontender Cardiovascular: Regular rate, Regular rhythm, No murmurs Respiratory: No distress, CTA bilaterally, Chest nontender Abdomen: Soft, Nontender, Nondistended, Normal bowel sounds Back: Nontender, Normal Inspection Extremities: Nontender, No edema Skin: Normal color, No rash Neurological: Alert, Oriented x3, Cranial nerves II-XII grossly intact, Normal Strength, Normal Sensation Psychological: Normal affect, Normal Mood Diagnostic/Tx/Re-eval - Medical Decision Making Patient presents to the ED for sore throat and painful swallowing after she was started on antibiotics for H. pylori infection. On physical exam it does appear that she has developed thrush. We will treat this with a nystatin swish and swallow. I do not believe she has an allergic reaction to these medications. She denies any significant swelling, difficulty eating/drinking she needs to return to the emergency department and discontinue her medications otherwise. She needs follow-up with her PCP. She understands and is agreeable this plan. All questions were answered. ED Disposition - Plan for ED Patient: Disposition: Home or Assisted Living Diagnosis: Thrush, oral Instructions: Oral Thrush Prescriptions: Nystatin 100,000 unit PO 4X/DAY 7 Days #1 oral.susp Prescription Printed [facility] - 3-5 Days
== END 2020-03-12 17:08 | disposition home or self-care (01) ==
PROVIDERS: Emergency Provider Emergency Medicine
DX: B37.0 Candidal stomatitis (principal); B96.81 Helicobacter pylori [H. pylori] as the cause of diseases classified elsewhere; F17.200 Nicotine dependence, unspecified, uncomplicated; Z79.899 Other long term (current) drug therapy; Z88.0 Allergy status to penicillin
CPT/HCPCS: 99282

== ENCOUNTER → 2020-03-19 | Outpatient (CLI) | payer MEDICAID, SELFPAY ==
[2020-03-19 16:58] VITALS: BMI 26.6
== END | disposition home or self-care (01) ==
LOC: LABSPEC 18:18
PROVIDERS: Visit Provider Physician Assistant Surgical
DX: Z20.822 Contact with and (suspected) exposure to COVID-19 (principal)
CPT/HCPCS: 87635; U0003

== ENCOUNTER 2020-06-27 11:08 | Emergency (ER) | payer OTHER, MEDICAID, SELFPAY ==
[2020-05-07 10:24] VITALS: BMI 26.6
[2020-06-27 11:11] VITALS: BP 142/113; PULSE 73; RESP 18; TEMP 36.4; O2SAT 97; BMI 27.8
[2020-06-27] MEDS: Lidocaine 1% (30 ml sdv) 30 ML Vial INFILT (11:32)
--- NOTE | 2020-06-27 11:34 | EDS_ITS ---
HPI History of Present Illness Chief Complaint: Laceration Narrative Narrative: Patient presents with the right arm laceration at work. No other injuries. 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 It was accidental. [facility] Medical History (Updated 06/27/20 @ 11:[address] Guillermo Lindsey MD) Chronic neck and back pain GERD (gastroesophageal reflux disease) Shoulder pain Home Medications omeprazole 20 mg PO DAILY 07/24/19 [History Last Taken 07/23/19] Allergy/AdvReac Type Severity Reaction Status Date / Time Penicillins Allergy Anaphylaxis Verified 06/27/20 11:15 Family History (Updated 03/19/20 @ 16:59 by Desire Gross) Other Hypertension Surgical History Hx of section Social History (Updated 03/20/20 @ 09:38 by Patrice CORTES, SEBASTIAN) Smoking Status: Current every day smoker ROS ROS ED ROS Narrative Past medical history: none Medications: Reviewed Social history: Noncontributory Review of systems: Musculoskeletal: Left forearm laceration Skin: Laceration as in HPI Neurological: No weakness or paresthesias Hematologic: She does have somewhat heavy menstrual cycles she is prone to easy bleeding. EXAM Physical Exam Narrative Exam Narrative: Physical exam General: Patient does not appear in significant distress . Head: Normocephalic, Atraumatic Neck: No C-spine tenderness Cardiovascular: Regular rate, Regular rhythm Respiratory: No distress, CTA bilaterally Back: Nontender, Normal Inspection. Extremities: Full range of motion of the left upper extremity. See laceration description below Skin: 3 cm laceration over the forearm, no tendon involvement. Neurological: Normal strength and sensation Const Vital Signs: 06/27/20 11:11 Temperature 97.6 F L Temperature Source Temporal Pulse Rate 73 Respiratory Rate 18 Blood Pressure 142/113 H Blood Pressure Mean 122 Pulse Ox 97 Oxygen Delivery Method Room Air [facility] Treatment and Re-Evaluation Comments:: Patient was sutured she tolerated procedure well. Tetanus will be updated. I will discharge in stable condition. Procedures Lacerations forearm lac: Length: 36 in Depth: Sub Q Shape: Linear Prep: Sterile Conditions Laceration repair: Lidocaine Irrigated (ml): 5 Number of Sutures/Malcom: 3 Suture Information: Ethilon and 4-0 Comment: Wound approximated well. No complications. Discharge Plan Triage Chief Complaint: Laceration ED Provider: Guillermo Lindsey Dx/Rx/DC Orders Clinical Impression: Forearm laceration Instructions: ED Laceration: All Closures Prescriptions: No Action omeprazole 20 MG capsule 20 mg PO DAILY RF: 0 Primary Care Provider: Ceci Ott Referrals: [facility] Ceci Fields [Primary Care Provider] - 10 Day for suture removal
--- NOTE | 2020-06-27 12:16 | ED.RN ---
PT INSTRUCTED TO GO TO [facility] TO COMPLETE DRUG SCREENING. PT GAVE RN A PACKET SENT FROM [employer] FOR THEIR DRUG SCREEN PROCESS. RN CALLED THE HR DEPT AT [employer] AND GAVE BILLING INFORMATION TO REGISTRATION
== END 2020-06-27 12:19 | disposition home or self-care (01) ==
LOC: ED 11:44
PROVIDERS: Emergency Provider Emergency Medicine
DX: S51.812A Laceration without foreign body of left forearm, initial encounter (principal); Z23 Encounter for immunization; W27.8XXA Contact with other nonpowered hand tool, initial encounter; Y93.9 Activity, unspecified; Y92.9 Unspecified place or not applicable; Y99.0 Civilian activity done for income or pay; M54.9 Dorsalgia, unspecified; M54.2 Cervicalgia; G89.29 Other chronic pain; K21.9 Gastro-esophageal reflux disease without esophagitis; F17.200 Nicotine dependence, unspecified, uncomplicated; Z79.899 Other long term (current) drug therapy
CPT/HCPCS: 12002; 99284

== ENCOUNTER 2020-08-13 17:53 | Emergency (ER) | payer MEDICAID, SELFPAY ==
[2020-08-13 17:53] VITALS: BP 126/86; PULSE 94; RESP 18; TEMP 36.2; O2SAT 97; BMI 57.6
--- NOTE | 2020-08-13 17:58 | EKG12_ITS ---
Test Reason : CP Blood Pressure : / mmHG Vent. Rate : 081 BPM Atrial Rate : 084 BPM P-R Int : 154 ms QRS Dur : 080 ms QT Int : 358 ms P-R-T Axes : 069 058 026 degrees QTc Int : 415 ms Normal sinus rhythm Normal ECG Confirmed by LIO KWAN, JAJA ([id number]), website/blog editor DONTE MCMANUS ([id number]) on 08/15/2020 9:27:29 AM Referred By: SAMANTA Confirmed By:JAJA VACA MD
--- NOTE | 2020-08-13 18:16 | RAD_ITS ---
STUDY: X-RAY CHEST REASON FOR EXAM: Female, 34 years old. chest pain TECHNIQUE: Single AP portable view of the chest. COMPARISON: 05/06/2019 FINDINGS: The lungs are clear and expanded. There is no demonstrated pleural abnormality. Normal size heart. Normal mediastinum and aleena. Normal visualized pulmonary arteries. Normal visualized aortic arch and descending thoracic aorta. Normal visualized thoracic spine. Normal visualized ribs, clavicles, and shoulders. There is no demonstrated abnormality of the visualized soft tissue structures of the upper abdomen. RAD/Chest 1 View (Portable) IMPRESSION: Normal x-ray examination of the chest. Electronically Signed: Darren Moncada MD at 18:34 EDT Tel , Service support ,
[2020-08-13 19:15] LABS: Absolute Lymphocyte Count 2.21 X10^3/uL (0.83-4.51); Absolute Neutrophil Count 4.4 X10^3/uL (2.0-7.7); Basophil# 0.01 X10^3/uL; Basophil% 0.1 % (0-1); Eosinophil# 0.23 X10^3/uL; Eosinophils% 3.2 % (0-5); Hematocrit 39.7 % (37-47); Hemoglobin 13.4 g/dL (12.0-15.0); Lymphocyte # 2.21 X10^3/ul (0.83-4.51); Lymphocyte % 30.4 % (19-41); Mean Corp Hgb Conc 33.8 g/dL (32-36); Mean Corpuscular Hgb 30.2 pg (27.0-32.0); Mean Corpuscular Volume 89.6 fL (81-99); Mean Platelet Vol. 10.9 fl (6.2-12.0); Monocyte# 0.43 X10^3/uL; Monocyte% 5.9 % (0-10); NRBC Flagged by Analyzer 0 % (0-5); Neutrophil # 4.39 X10^3/uL (2.7-7.7); Neutrophil % 60.3 % (47-70); Platelet Count 142 K/mm3 (150-450); RBC Distribution Width CV 12.9 % (11.6-14.6); RBC Distribution Width SD 42.4 fl (35.1-43.9); Red Blood Count 4.43 M/mm3 (4.2-5.4); White Blood Count 7.3 K/mm3 (4.4-11.0)
[2020-08-13 19:33] LABS: Anion Gap 5 (5-15); BUN 17 mg/dL (7-18); Calcium,Total 8.5 mg/dL (8.5-10.1); Chloride 111 mmol/L (98-107); Creatinine, Serum 0.74 mg/dL (0.55-1.02); EST Glomerular Filtration Rate 94 mL/min (>60); Est Glom Filt Rate - Afr Amer 114 mL/min (>60); Estimated Creatinine Clearance 109.84 ml/min; Glucose 102 mg/dL (74-106); Potassium 3.8 mmol/L (3.5-5.1); Sodium Level 143 mmol/L (136-145)
[2020-08-13] MEDS: Ketorolac 15 MG/ML Vial IV (19:53)
[2020-08-13 20:11] LABS: D-Dimer Quantitative (DVT/PE) 0.53 FEU/ug/m (0.27-0.49)
--- NOTE | 2020-08-13 20:31 | CT_ITS ---
INDICATION: chest pain, elevated dimer EXAMINATION: CTA Chest WO/W Contrast Injection TECHNIQUE: Helically acquired images were obtained of the chest following administration of IV contrast. A radiation dose optimization technique was used for this scan. 3D postprocessing images including MIPS were reviewed. IV Contrast dosage and agent: IV 100mL [id number]-[id number] COMPARISON: None. FINDINGS: Lungs: Groundglass opacities in a mosaic pattern in the lung bases. Mediastinum: The cardiomediastinal silhouette is not enlarged. No mediastinal, hilar or axillary adenopathy. The thoracic aorta is unremarkable. No obvious filling defect seen within the visualized pulmonary arteries. Pleura: Unremarkable Bones/Soft tissues: Mild scattered degenerative changes of the visualized spine. Upper abdomen: No visualized abnormalities in the upper abdomen. CT/CTA Chest W/WO Contrast IMPRESSION: No evidence of acute pulmonary emboli to the segmental level. Groundglass opacities in a mosaic pattern in the lung bases is nonspecific. Possible etiologies include but are not limited to air trapping, small airways disease and infection. Electronically Signed: Will Chavez MD at 21:10 EDT Tel , Service support ,
[2020-08-13 22:11] VITALS: PULSE 64; RESP 19; O2SAT 97
--- NOTE | 2020-08-13 22:25 | ED.VIS.CHEST ---
HPI History of Present Illness Chief Complaint: Chest Pain Informant: patient Narrative Narrative: Patient reports 1 month history on and off sharp substernal chest pain. She states more recently has been constant. Pain worse with deep breaths. Also pain worse with palpation on the right side. Tobacco history. States she is not on any hormone therapy, she has an IUD. Denies PE risk factors. Denies history of hypertension, hypercholesterolemia, diabetes. Denies family history of MIs at a young age. Denies any history of stress test. [facility] Medical History (Updated 08/13/20 @ 22:[address] Henry Ventura DO) Chronic neck and back pain Costochondritis, acute GERD (gastroesophageal reflux disease) Shoulder pain Home Medications omeprazole 20 mg PO DAILY 07/24/19 [History Last Taken 07/23/19] ibuprofen 600 mg PO Q6H PRN PRN #20 tab 08/13/20 [Rx Last Taken Unknown] tramadol 50 mg PO Q6H PRN #12 tab 08/13/20 [Rx Last Taken Unknown] Allergy/AdvReac Type Severity Reaction Status Date / Time Penicillins Allergy Anaphylaxis Verified 08/13/20 17:55 Family History Other Hypertension Surgical History Hx of section Social History Smoking Status: Current every day smoker tobacco type: cigarettes ROS ROS ED Constitutional Constitutional ED: Denies chills, fever(s) or sweats Eyes Eyes: Denies change in vision ENT ENT ED: Denies dysphagia or sore throat Cardiovascular Cardiovascular: Reports chest pain; Denies leg edema, palpitations or racing heartbeat Respiratory/Chest Respiratory/Chest: Denies cough, dyspnea or dyspnea on exertion Gastrointestinal Gastrointestinal: Denies abdominal pain, diarrhea, nausea or vomiting Genitourinary Genitourinary ED: Denies dysuria, hematuria or urinary frequency Musculoskeletal Musculoskeletal: Denies back pain, extremity pain or neck pain Integumentary Denies rash or wounds Neurologic Neurologic: Denies headache(s), paresthesias or weakness EXAM Physical Exam Const Vital Signs: 08/13/20 17:53 08/13/20 19:17 08/13/20 22:11 Temperature 97.1 F L Temperature Source Temporal Pulse Rate 94 64 Respiratory Rate 18 19 H Blood Pressure 126/86 H Blood Pressure Mean 99 Pulse Ox 97 97 Oxygen Delivery Method Room Air Room Air Room Air Positive well nourished and well developed General Appearance ED: well developed and NAD HEENT Reports moist mucous membranes normocephalic and atraumatic Eyes PERRL, EOMs intact bilaterally and conjunctivae normal General Eye ED: Yes normal appearance of both eyes Neck no lymphadenopathy and supple General: Negative for tenderness Chest Wall Chest Narrative: Right-sided chest wall tenderness at the costal cartilage. No rash. Chest: tenderness Resp normal respiratory effort and normal air movement Resp Narrative: Symmetric breath sounds bilaterally. Effort and Inspection: symmetric chest movement; Negative for respiratory distress Cardio regular rate, regular rhythm and no murmurs Peripheral Pulses: pulses 2+ throughout GI normal to inspection, nondistended, normoactive bowel sounds and non-tender Palpation: Negative for guarding or rebound tenderness present Back/Spine no CVA tenderness and no thoracic nor lumbar tenderness Extremity normal to inspection General Extremety ED: Negative for edema or tenderness General Extremity: Negative for edema Neuro oriented x3 and no sensory deficits noted Sensorium / Orientation: awake and alert Skin no rashes or lesions noted and no wounds Heart Score History: Slightly/Non-Suspicious ECG: Normal Age: </= 45 years Risk Factors: 1 or 2 Risk Factors Troponin: </= Normal Limit Score: 1 MDM MDM MDM Narrative Medical decision making narrative: Patient EKG normal cardiac work-up negative. With persistent symptoms of the past few days with a negative troponin lower suspicion for cardiac disease. She describes pleuritic symptoms with pain with deep breaths. D-dimer obtained slightly elevated 0.53. Subsequent CTA of the chest obtained negative for PE. Groundglass opacities were noted. She denies any cough or any respiratory symptoms. She was given Toradol states did not help her symptoms. Discussed concerning for costochondritis will continue NSAIDs she has no ulcer history. Will write short prescription for tramadol to use as needed. She will follow-up with her PCPs. All questions were answered. Lab Data Labs: Laboratory Results - last 24 hr 08/13/20 08/13/20 08/13/20 18:52 18:52 19:45 WBC 7.3 RBC 4.43 Hgb 13.4 Hct 39.7 MCV 89.6 MCH 30.2 MCHC 33.8 RDW Std Deviation 42.4 RDW Coeff of Amrit 12.9 Plt Count 142 L MPV 10.9 Immature Gran % (Auto) 0.100 Neut % (Auto) 60.3 Lymph % (Auto) 30.4 Morrison % (Auto) 5.9 Eos % (Auto) 3.2 Baso % (Auto) 0.1 Absolute Neuts (auto) 4.4 Absolute Lymphs (auto) 2.21 Nucleated RBC % 0 D-Dimer Quant (PE/DVT) 0.53 H* Sodium 143 Potassium 3.8 Chloride 111 H Carbon Dioxide 27.0 Anion Gap 5 BUN 17 Creatinine 0.74 Estim Creat Clear Calc 109.84 Est GFR (MDRD) Af Amer 114 Est GFR (MDRD) Non-Af 94 BUN/Creatinine Ratio 23.0 H Glucose 102 Calcium 8.5 Troponin I < 0.015 Radiography Chest X-Ray - ED: 1 View, Read by ED Physician, Read by Radiologist and No Acute Disease Diagnostic Testing: Radiology Impression Chest X-Ray 08/13/20 18:16 IMPRESSION: Normal x-ray examination of the chest. Electronically Signed: Darren Moncada MD at 18:34 EDT Tel , Service support , Chest CTA 08/13/20 20:31 IMPRESSION: No evidence of acute pulmonary emboli to the segmental level. Groundglass opacities in a mosaic pattern in the lung bases is nonspecific. Possible etiologies include but are not limited to air trapping, small airways disease and infection. Electronically Signed: Will Chavez MD at 21:10 EDT Tel , Service support , EKG Initial EKG: Attestation: I personally reviewed and interpreted this EKG as follows: Comments: Sinus rate of 81, no ST or T wave changes. Discharge Plan Triage Chief Complaint: Chest Pain ED Provider: Henry Ventura Dx/Rx/DC Orders Clinical Impression: Chest pain, Costochondritis, acute Instructions: ED Chest Wall Pain, Costochondritis Prescriptions: New ibuprofen 600 mg tablet 600 mg PO Q6H PRN PRN (Reason: pain) Qty: 20 RF: 0 tramadol 50 mg tablet 50 mg PO Q6H PRN (Reason: pain) Qty: 12 RF: 0 No Action omeprazole 20 MG capsule 20 mg PO DAILY RF: 0 Stand Alone Forms: ED Work / School Excuse [facility] Care [facility] Disposition Disposition: Home, self care
[2020-08-13 22:48] VITALS: BP 125/60; PULSE 62; RESP 16; O2SAT 98
== END 2020-08-13 22:49 | disposition home or self-care (01) ==
PROVIDERS: Emergency Provider Emergency Medicine
DX: M94.0 Chondrocostal junction syndrome [Tietze] (principal); M54.9 Dorsalgia, unspecified; M54.2 Cervicalgia; M25.519 Pain in unspecified shoulder; G89.29 Other chronic pain; K21.9 Gastro-esophageal reflux disease without esophagitis; F17.210 Nicotine dependence, cigarettes, uncomplicated; Z79.899 Other long term (current) drug therapy
CPT/HCPCS: 71045; 71275; 80048; 84484; 85025; 85379; 93005; 96374; 99283; Q9967; A4216

== ENCOUNTER 2020-09-11 20:38 | Emergency (ER) | payer MEDICAID, SELFPAY ==
[2020-09-11 20:39] VITALS: BP 132/98; PULSE 96; RESP 16; TEMP 36.9; O2SAT 98; BMI 25.7
--- NOTE | 2020-09-11 21:26 | EKG12_ITS ---
Test Reason : ANXIETY Blood Pressure : / mmHG Vent. Rate : 087 BPM Atrial Rate : 087 BPM P-R Int : 132 ms QRS Dur : 080 ms QT Int : 356 ms P-R-T Axes : 057 048 028 degrees QTc Int : 428 ms Normal sinus rhythm Normal ECG Confirmed by LIO KWAN, JAJA ([id number]), development editor DONTE MCMANUS ([id number]) on 09/14/2020 10:01:32 AM Referred By: BB Confirmed By:JAJA VACA MD
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
[2020-09-11 22:06] LABS: Absolute Lymphocyte Count 2.34 X10^3/uL (0.83-4.51); Absolute Neutrophil Count 2.2 X10^3/uL (2.0-7.7); Basophil# 0.01 X10^3/uL; Basophil% 0.2 % (0-1); Eosinophil# 0.12 X10^3/uL; Eosinophils% 2.4 % (0-5); Hematocrit 39.1 % (37-47); Hemoglobin 13.1 g/dL (12.0-15.0); Lymphocyte # 2.34 X10^3/ul (0.83-4.51); Lymphocyte % 46.6 % (19-41); Mean Corp Hgb Conc 33.5 g/dL (32-36); Mean Corpuscular Hgb 29.8 pg (27.0-32.0); Mean Corpuscular Volume 88.9 fL (81-99); Mean Platelet Vol. 10.1 fl (6.2-12.0); Monocyte# 0.37 X10^3/uL; Monocyte% 7.4 % (0-10); NRBC Flagged by Analyzer 0 % (0-5); Neutrophil # 2.17 X10^3/uL (2.7-7.7); Neutrophil % 43.2 % (47-70); Platelet Count 159 K/mm3 (150-450); RBC Distribution Width CV 12.7 % (11.6-14.6); RBC Distribution Width SD 41.4 fl (35.1-43.9)
[2020-09-11 22:20] LABS: Anion Gap 6 (5-15); BUN 11 mg/dL (7-18); BUN/Creat Ratio 16.1 RATIO (10-20); Calcium,Total 8.8 mg/dL (8.5-10.1); Chloride 109 mmol/L (98-107); Creatinine, Serum 0.68 mg/dL (0.55-1.02); EST Glomerular Filtration Rate 103 mL/min (>60); Est Glom Filt Rate - Afr Amer 124 mL/min (>60); Estimated Creatinine Clearance 118.38 ml/min; Glucose 90 mg/dL (74-106); Potassium 3.4 mmol/L (3.5-5.1); Sodium Level 141 mmol/L (136-145)
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
[2020-09-11 22:54] VITALS: BP 122/86; PULSE 75; RESP 18; O2SAT 97
== END 2020-09-11 22:54 | disposition home or self-care (01) ==
PROVIDERS: Emergency Provider Emergency Medicine
DX: F41.9 Anxiety disorder, unspecified (principal); F43.9 Reaction to severe stress, unspecified; R55 Syncope and collapse; I47.1 Supraventricular tachycardia; R00.2 Palpitations; Z59.0 Homelessness; M54.9 Dorsalgia, unspecified; M54.2 Cervicalgia; G89.29 Other chronic pain; K21.9 Gastro-esophageal reflux disease without esophagitis; F17.210 Nicotine dependence, cigarettes, uncomplicated
CPT/HCPCS: 80048; 85025; 93005; 99285; A4216

== ENCOUNTER 2020-10-01 20:15 | Emergency (ER) | payer MEDICAID, SELFPAY ==
[2020-10-01 20:15] VITALS: BP 104/76; PULSE 79; RESP 20; TEMP 36.6; O2SAT 97; BMI 26.1
[2020-10-01] MEDS: Ibuprofen 600 MG Tablet PO (22:09)
--- NOTE | 2020-10-01 22:23 | RAD_ITS ---
STUDY: X-RAY - PELVIS AND RIGHT HIP REASON FOR EXAM: Female, 35 years old. Pain after injury. TECHNIQUE: 3 views of the pelvis and hip. COMPARISON: None. FINDINGS: No visible fracture. No osseous destruction. Alignment anatomic. No significant degenerative changes. Soft tissues unremarkable. IUD in the pelvis. RAD/HIP, UNI W/ Pelvis 2-3 Views IMPRESSION: No acute osseous abnormality. Electronically Signed: Dm Ardon MD at 22:52 EDT Tel , Service support ,
--- NOTE | 2020-10-01 23:15 | EDS_ITS ---
HPI History of Present Illness Chief Complaint: Lower Extremity Injury Informant: patient Narrative Narrative: Patient is a 35-year-old female presenting with right leg pain. Patient states a little over a month ago she tried to do cart wheel with a round off and when she landed she immediately had pain in her right leg. She states it is behind her thigh and radiates down her leg and up into her pelvis. She has pain that radiates into her groin. Today the pain is more severe and she has spasms. She not take anything for pain today. She denies any prior injuries to this leg. She has a history of sciatica. She notes she does have some mild low back pain but this is different. Patient states that she is on her feet a lot for work and this aggravates it. No associated numbness or tingling. No urinary symptoms. No other complaints at this time. PFSH PFSH Medical History Chronic neck and back pain Costochondritis, acute GERD (gastroesophageal reflux disease) Shoulder pain Home Medications cyclobenzaprine 10 mg PO TID PRN #20 tab 10/01/20 [Rx Last Taken Unknown] ibuprofen 600 mg PO Q6H PRN PRN #20 tab 10/01/20 [Rx Last Taken Unknown] Allergy/AdvReac Type Severity Reaction Status Date / Time Penicillins Allergy Anaphylaxis Verified 10/01/20 21:45 Family History Other Hypertension Surgical History Hx of section Social History Smoking Status: Current every day smoker tobacco type: cigarettes ROS ROS ED Constitutional Constitutional ED: Reports frequent falls; Denies fever(s) Eyes Eyes: Denies change in vision or eye pain ENT ENT ED: Denies dental pain, mouth lesions or nasal trauma Cardiovascular Cardiovascular: Denies chest pain or syncope Respiratory/Chest Respiratory/Chest: Denies cough or dyspnea Gastrointestinal Gastrointestinal: Denies abdominal pain or nausea Genitourinary Genitourinary ED: Denies dysuria or hematuria Musculoskeletal Musculoskeletal: Reports arthralgias and myalgias; Denies back pain Integumentary Denies Abrasions or wounds Neurologic Neurologic: Denies headache(s), paresthesias or weakness Psychiatric Psychiatric: Denies anxiety or depression Hematologic/Lymphatic Hematologic/Lymphatic: Denies easy bleeding or easy bruising EXAM Physical Exam Const Vital Signs: 10/01/20 20:15 Temperature 97.9 F Temperature Source Temporal Pulse Rate 79 Respiratory Rate 20 H Blood Pressure 104/76 Blood Pressure Mean 85 Pulse Ox 97 Oxygen Delivery Method Room Air Positive well nourished and well developed General Appearance ED: well developed HEENT normocephalic and atraumatic; Negative for Zhao's sign, raccoon eyes or scalp tenderness Nose: no nasal discharge Mouth ED: Yes other Mouth: other Other Details: No Malocclusion Eyes PERRL Neck full ROM Thyroid: Negative for tender Chest Wall inspection of chest normal and palpation of chest normal Chest: Negative for crepitus Resp normal respiratory effort, no retractions and clear to auscultation bilaterally Cardio regular rate and regular rhythm Jugular Venous Distention: Negative for JVD Peripheral Pulses: pulses 2+ throughout GI non-tender and non-distended Palpation: soft; Negative for guarding or rebound tenderness present Back/Spine Cervical Spine: Negative for cervical spine tenderness Thoracic Spine / Upper Back: Negative for thoracic spinal tenderness Lumbar Spine / Lower Back: straight leg raise negative bilaterally; Negative for lumbar spinal tenderness Extremity normal to inspection and full ROM Extremity Narrative: pelvis stable, no deformity . Left Lower Extremity: hip joint inspection (Normal), palpation (Mild tenderness over the greater trochanter) and ROM (Intact), upper leg Positive for other (Patient has tenderness to palpation of the right posterior leg hamstrings.) and knee joint other (normal) Neuro oriented x3, moves all extremities and no sensory deficits noted Sensorium / Orientation: alert Motor Exam: strength 5/5 throughout Psych mental status grossly normal Skin no wounds Trauma: Negative for abrasion MDM MDM MDM Narrative Medical decision making narrative: Patient is evaluated for persistent right thigh and hip pain. Physical exam is consistent more with a hamstring injury. I do not think this is sciatica. She is neuro vastly intact. X-ray does not show any fracture or joint abnormality. X-ray interpreted by myself as well as radiology. Patient is given Motrin in the ER. She is given a course of Motrin and Flexeril for pain control and to treat the spasm she states she is been having. She is instructed to follow-up with Ortho. She is referred to Dr. Pena who is on-call. Patient verbalizes agreement understand this plan. She is given a work note per her request. Radiography Diagnostic Testing: Radiology Impression Hip/Pelvis X-Ray 10/01/20 22:23 IMPRESSION: No acute osseous abnormality. Electronically Signed: Dm Ardon MD at 22:52 EDT Tel , Service support , Treatment and Re-Evaluation Comments:: X-ray?negative for acute process Motrin and Flexeril Discharge Plan Triage Chief Complaint: Lower Extremity Injury ED Provider: Hollie Norris Dx/Rx/DC Orders Clinical Impression: Strain of right hamstring Instructions: ED Hip Strain, ED Muscle Strain, Extremity Prescriptions: New cyclobenzaprine 10 mg tablet 10 mg PO TID PRN (Reason: muscle spasm) Qty: 20 RF: 0 ibuprofen 600 mg tablet 600 mg PO Q6H PRN PRN (Reason: Pain Score 1-10/10) Qty: 20 RF: 0 Primary Care Provider: [facility] Ol[facility] Referrals: Jonas Pena MD [STAFF PHYSICIAN] - [facility]Primary Care Provider[facility] - Disposition Disposition: Home, Self Care
[2020-10-01] MEDS: cycloBENZAPRine HCl 10 MG Tablet PO (23:52)
== END 2020-10-01 23:52 | disposition home or self-care (01) ==
PROVIDERS: Emergency Provider Emergency Medicine
DX: S76.311A Strain of muscle, fascia and tendon of the posterior muscle group at thigh level, right thigh, initial encounter (principal); M62.838 Other muscle spasm; X58.XXXA Exposure to other specified factors, initial encounter; Y93.43 Activity, gymnastics; Y92.9 Unspecified place or not applicable; Y99.9 Unspecified external cause status; M54.5 Low back pain; M54.2 Cervicalgia; K21.9 Gastro-esophageal reflux disease without esophagitis; F17.210 Nicotine dependence, cigarettes, uncomplicated
CPT/HCPCS: 73502; 99283

== ENCOUNTER 2021-02-22 12:14 | Emergency (ER) | payer MEDICAID, SELFPAY ==
[2021-02-22 12:15] VITALS: BP 119/87; PULSE 96; RESP 16; TEMP 36.9; O2SAT 96; BMI 28.1
[2021-02-22] MEDS: Ondansetron ODT 4 MG Tablet PO (14:52)
--- NOTE | 2021-02-22 21:31 | EDS_ITS ---
HPI History of Present Illness Chief Complaint: Headache Narrative Narrative: 35-year-old female presenting with a headache, generalized fatigue, mild cough. She states she came to the ER today because her tested positive for Covid this morning. She states I just have to know. She did present with her children of which her son states that he might have a mild runny nose. Her daughter says she is not sick. Patient brought all of her family with her for testing. None of them were vaccinated for COVID-19. They do not want treatment for COVID-19 in the form of monoclonal antibodies. Patient experiencing chest pain palpitations, shortness of breath. She is not had a fever. She denies neck stiffness. No rashes. No urinary complaints. PFSH PFSH Medical History Chronic neck and back pain Costochondritis, acute GERD (gastroesophageal reflux disease) Shoulder pain Home Medications omeprazole 40 mg PO DAILY 02/22/21 [History Last Taken Unknown] omeprazole 40 mg PO DAILY #30 capsule 02/22/21 [Rx Last Taken Unknown] ondansetron 4 mg PO Q8H PRN PRN #14 tab 02/22/21 [Rx Last Taken Unknown] Allergy/AdvReac Type Severity Reaction Status Date / Time Penicillins Allergy Anaphylaxis Verified 02/22/21 12:17 Family History Other Hypertension Surgical History Hx of section Social History Smoking Status: Current every day smoker tobacco type: cigarettes ROS ROS ED Constitutional Constitutional ED: Reports chills and sweats Eyes Eyes: Denies blurry vision or diplopia ENT ENT ED: Reports sore throat; Denies rhinorrhea Cardiovascular Cardiovascular: Denies chest pain or palpitations Respiratory/Chest Respiratory/Chest: Reports cough; Denies dyspnea Gastrointestinal Gastrointestinal: Reports nausea; Denies abdominal pain or vomiting Genitourinary Genitourinary ED: Denies dysuria or hematuria Musculoskeletal Musculoskeletal: Denies arthralgias, back pain, myalgias or neck pain Integumentary Denies Abrasions or rash Neurologic Neurologic: Reports headache(s); Denies paresthesias or weakness EXAM Physical Exam Const Vital Signs: 02/22/21 12:15 02/22/21 14:37 Temperature 98.4 F Temperature Source Temporal Pulse Rate 96 Respiratory Rate 16 Respiratory Effort Normal Non-Labored Respiratory Pattern Normal Blood Pressure 119/87 H Blood Pressure Mean 97 Pulse Ox 96 Oxygen Delivery Method Room Air Positive well nourished General Appearance ED: NAD; Negative for pallor HEENT Reports normocephalic and moist mucous membranes atraumatic Eyes PERRL and EOMs intact bilaterally Neck no lymphadenopathy and supple Resp normal respiratory effort and clear to auscultation bilaterally Cardio regular rate and regular rhythm Extremity normal to inspection; Negative for full ROM or normal capillary refill Neuro oriented x3 and CN's II-XII intact bilaterally Sensorium / Orientation: awake and alert Psych mental status grossly normal Skin General Skin Exam: Negative for jaundice or pallor Rashes: no rashes MDM MDM MDM Narrative Medical decision making narrative: Patient presenting with mild symptoms of COVID-19. She tested negative for Covid today however her son tested positive. She is counseled that this means she is likely positive for COVID-19. She is counseled on how to monitor herself and return precautions. She is given Zofran for nausea for home. I do not believe she needs blood work or imaging because her vital signs are all normal. Patient stable for discharge at this time. Impression: 1. COVID-19 2. Headache 3. Nausea Discharge Plan Triage Chief Complaint: Headache ED Provider: Feroz Cosme Dx/Rx/DC Orders Instructions: Coronavirus Disease 2019 (COVID-19): Caring for Yourself or Others Prescriptions: New ondansetron 4 mg tablet,disintegrating 4 mg PO Q8H PRN PRN (Reason: Nausea) Qty: 14 RF: 0 omeprazole 20 mg capsule,delayed release(DR/EC) 40 mg PO DAILY Qty: 30 RF: 0 No Action omeprazole 40 mg capsule,delayed release(DR/EC) 40 mg PO DAILY RF: 0 Primary Care Provider: [facility] Ceci Fields Referrals: [facility] Ceci Fields [Primary Care Provider] - Disposition Disposition: Home, Self Care Discharge Date/Time: 02/22/21 14:53
== END 2021-02-22 14:53 | disposition home or self-care (01) ==
PROVIDERS: Emergency Provider Student in an Organized Health Care Education/Training Program
DX: U07.1 COVID-19 (principal); R51.9 Headache, unspecified; R11.0 Nausea; F17.210 Nicotine dependence, cigarettes, uncomplicated; K21.9 Gastro-esophageal reflux disease without esophagitis; Z79.899 Other long term (current) drug therapy
CPT/HCPCS: 87426; 99281; 99283

== ENCOUNTER → 2021-08-29 | Outpatient (CLI) | payer MEDICAID, SELFPAY ==
[2021-08-29 17:20] LABS: Absolute Lymphocyte Count 2.51 X10^3/uL (0.83-4.51); Absolute Neutrophil Count 2.1 X10^3/uL (2.0-7.7); Basophil# 0.02 X10^3/uL; Basophil% 0.4 % (0-1); Eosinophil# 0.15 X10^3/uL; Eosinophils% 2.9 % (0-5); Hematocrit 39.6 % (37-47); Hemoglobin 13.5 g/dL (12.0-15.0); Lymphocyte # 2.51 X10^3/ul (0.83-4.51); Lymphocyte % 48.7 % (19-41); Mean Corp Hgb Conc 34.1 g/dL (32-36); Mean Corpuscular Hgb 30.1 pg (27.0-32.0); Mean Corpuscular Volume 88.2 fL (81-99); Mean Platelet Vol. 10.6 fl (6.2-12.0); Monocyte# 0.36 X10^3/uL; NRBC Flagged by Analyzer 0 % (0-5); Neutrophil % 40.8 % (47-70); Platelet Count 121 K/mm3 (150-450); RBC Distribution Width SD 42.3 fl (35.1-43.9); Red Blood Count 4.49 M/mm3 (4.2-5.4); White Blood Count 5.2 K/mm3 (4.4-11.0)
[2021-08-29 18:05] LABS: ALB/GLOB Ratio 1.3 RATIO (0.9-2.4); AST(SGOT) 18 U/L (15-37); Alanine Aminotransfer ALT/SGPT 28 U/L (13-56); Albumin, Serum 3.8 g/dL (3.2-5.0); Alkaline Phosphatase 79 U/L (45-117); Anion Gap 5 (5-15); BUN 15 mg/dL (7-18); BUN/Creat Ratio 19.8 RATIO (10-20); Chloride 109 mmol/L (98-107); Creatinine, Serum 0.76 mg/dL (0.55-1.02); EST Glomerular Filtration Rate 91 mL/min (>60); Est Glom Filt Rate - Afr Amer 110 mL/min (>60); Glucose 97 mg/dL (74-106); Potassium 3.7 mmol/L (3.5-5.1); Protein, Total 6.8 g/dL (6.4-8.2); Sodium Level 140 mmol/L (136-145)
[2021-08-29 18:29] LABS: HIV - WCH Non-Reactive (Nonreactive)
[2021-08-29 19:39] LABS: Erythrocyte Sedimentation Rate 4 mm/hr (0-30)
[2021-09-01 10:23] LABS: EBV Early Antigen IgG <9.0 U/mL (0.0-8.9); EBV-VCA IgG > 600.0 U/mL (0.0-17.9)
== END | disposition home or self-care (01) ==
LOC: LAB 16:38
PROVIDERS: Referring Provider Nurse Practitioner Adult Health; Visit Provider Nurse Practitioner Adult Health
DX: R59.1 Generalized enlarged lymph nodes (principal); R19.7 Diarrhea, unspecified
CPT/HCPCS: 36415; 80053; 85025; 85652; 86663; 86665; 86703

== ENCOUNTER → 2021-09-05 | Outpatient (CLI) | payer MEDICAID, SELFPAY ==
--- NOTE | 2021-09-05 17:00 | RAD_ITS ---
STUDY: X-RAY - PARANASAL SINUSES REASON FOR EXAM: Female, 36 years old. Chronic sinusitis and chronic swelling of left lymph nodes. TECHNIQUE: 3 view(s) of the paranasal sinuses were obtained. COMPARISON: None. FINDINGS: Normal visualized frontal, maxillary, ethmoidal and sphenoid sinuses. Normal visualized facial bones. The soft tissue structures are unremarkable. RAD/Sinuses min 3 Views IMPRESSION: Normal x-rays of the paranasal sinuses. Electronically Signed: Sebastian Quintana DO at 23:23 EDT ,
[2021-09-05 17:11] LABS: Absolute Neutrophil Count 4.3 X10^3/uL (2.0-7.7); Basophil# 0.01 X10^3/uL; Basophil% 0.2 % (0-1); Eosinophil# 0.03 X10^3/uL; Eosinophils% 0.5 % (0-5); Hematocrit 41.4 % (37-47); Hemoglobin 14.1 g/dL (12.0-15.0); Lymphocyte % 20.8 % (19-41); Mean Corp Hgb Conc 34.1 g/dL (32-36); Mean Corpuscular Hgb 30.4 pg (27.0-32.0); Mean Corpuscular Volume 89.2 fL (81-99); Mean Platelet Vol. 10.4 fl (6.2-12.0); Monocyte# 0.24 X10^3/uL; Monocyte% 4.2 % (0-10); NRBC Flagged by Analyzer 0 % (0-5); Neutrophil # 4.28 X10^3/uL (2.7-7.7); Platelet Count 161 K/mm3 (150-450); RBC Distribution Width CV 13.1 % (11.6-14.6); RBC Distribution Width SD 42.7 fl (35.1-43.9); Red Blood Count 4.64 M/mm3 (4.2-5.4); White Blood Count 5.8 K/mm3 (4.4-11.0)
[2021-09-05 17:40] LABS: Rheumatoid Factor < 10.0 IU/mL (<15)
[2021-09-10 14:07] LABS: ANTINUCLEAR ANTIBODIES DIRECT Positive (Negative)
== END | disposition home or self-care (01) ==
LOC: LAB 16:34
PROVIDERS: Visit Provider Nurse Practitioner Adult Health
DX: R59.1 Generalized enlarged lymph nodes (principal); J32.9 Chronic sinusitis, unspecified
CPT/HCPCS: 36415; 70220; 85025; 86038; 86431

== ENCOUNTER → 2021-09-13 | Outpatient (CLI) | payer MEDICAID, SELFPAY ==
[2021-09-16 16:08] LABS: ANTINUCLEAR ANTIBODIES DIRECT Positive (Negative)
== END | disposition home or self-care (01) ==
LOC: LAB 15:28
PROVIDERS: Referring Provider Nurse Practitioner Adult Health; Visit Provider Nurse Practitioner Adult Health
DX: R59.1 Generalized enlarged lymph nodes (principal); D69.6 Thrombocytopenia, unspecified
CPT/HCPCS: 36415; 86038

== ENCOUNTER → 2021-10-17 | Outpatient (CLI) | payer MEDICAID, SELFPAY | END | disposition home or self-care (01) | LOC: LAB 11:59 | PROVIDERS: Referring Provider Nurse Practitioner Adult Health; Visit Provider Nurse Practitioner Adult Health | DX: R59.1 Generalized enlarged lymph nodes (principal); D69.6 Thrombocytopenia, unspecified | CPT/HCPCS: 36415; 86038 ==

== ENCOUNTER → 2021-10-25 | Outpatient (CLI) | payer MEDICAID, SELFPAY ==
--- NOTE | 2021-10-25 16:55 | US_ITS ---
STUDY: SUPERFICIAL ULTRASOUND - SOFT TISSUE NECK REASON FOR EXAM: Female, 36 years old. GENERALIZED ENLARGED LYMPH NODES/CERVICALGIA TECHNIQUE: A superficial ultrasound was performed with real-time and static barrios-scale imaging. COMPARISON: None. FINDINGS: Multiple longitudinal and transverse ultrasound images the neck demonstrate no abnormal mass, lymphadenopathy, fluid collection. Some normal lymph nodes are noted. A small solid nodule seen in the left lobe of the thyroid gland. US/Head/Neck Soft Tissue IMPRESSION: Normal soft tissue neck. Electronically Signed: Darren Moncada MD at 21:10 EDT ,
[2021-10-30 08:22] LABS: ANTINUCLEAR ANTIBODIES DIRECT Positive (Negative)
== END | disposition home or self-care (01) ==
LOC: US 16:47
PROVIDERS: Referring Provider Nurse Practitioner Adult Health; Visit Provider Nurse Practitioner Adult Health
DX: R59.1 Generalized enlarged lymph nodes (principal); D69.6 Thrombocytopenia, unspecified
CPT/HCPCS: 76536; 86038

== ENCOUNTER → 2021-11-11 | Outpatient (CLI) | payer MEDICAID, SELFPAY ==
--- NOTE | 2021-11-11 18:20 | US_ITS ---
STUDY: THYROID ULTRASOUND REASON FOR EXAM: Female, 36 years old. NODULE TECHNIQUE: Ultrasound evaluation of the thyroid was performed with real-time and static barrios-scale imaging. COMPARISON: None. FINDINGS: RIGHT LOBE: The right lobe of the thyroid gland measures 5.7 x 2.1 x 1.7 cm. There is a homogeneous echotexture. There is 0.6 x 0.5 cm nodule LEFT LOBE: The left lobe of the thyroid gland measures 5.6 x 1.6 x 1.3 cm. There is a homogeneous echotexture. There is 1.0 x 0.9 cm hypoechoic nodule. ISTHMUS: The isthmus measures 0.3 cm. The regional lymph nodes are normal. US/Thyroid IMPRESSION: Small thyroid nodules. Electronically Signed: Kamari Rodriguez MD at 21:10 EDT ,
== END | disposition home or self-care (01) ==
LOC: US 18:16
PROVIDERS: PCP Nurse Practitioner Adult Health; Referring Provider Family Medicine; Visit Provider Family Medicine
DX: E04.1 Nontoxic single thyroid nodule (principal)
CPT/HCPCS: 76536

== ENCOUNTER → 2021-11-27 | Outpatient (CLI) | payer MEDICAID, SELFPAY ==
--- NOTE | 2021-11-27 09:29 | NM_ITS ---
CLINICAL: 36-year-old female with history of thyroid nodularity. I-123 THYROID UPTAKE and SCAN COMPARISON: Thyroid ultrasound report 11/11/2021 FINDINGS: The patient was administered a 303 uCi I-123 capsule by mouth. The 4-hour I-123 radioactive iodine thyroidal uptake was calculated to be 14.9 % (normal 5 to 25 %). The 24-hour I-123 radioactive iodine thyroidal uptake was calculated to be 46.3 % (normal 5 to 40 %). The I-123 thyroid scan demonstrates homogeneous radiopharmaceutical concentration throughout both lobes of a U -shaped thyroid gland. There are no colloidal parenchymal hypofunctioning cold nodules noted in either lobe of the thyroid gland. NM/Thyroid Uptake Single or Mult IMPRESSION: 1. NORMAL 4- and ABNORMAL MILDLY ELEVATED 24-hour I-123 radioactive iodine thyroidal uptakes. Correlation with in vitro thyroid function studies is recommended. 2. 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 (Farida et al, J Nucl Med 32: 1455, 1991). 3. No hypofunctioning-cold nodules are identified. Electronically Signed: Darren Bhardwaj, at 20:23 EDT ,
== END | disposition home or self-care (01) ==
PROVIDERS: Visit Provider Nurse Practitioner Adult Health
DX: R74.8 Abnormal levels of other serum enzymes (principal)
CPT/HCPCS: 36415; 78012; 86038; A9516

== ENCOUNTER 2021-12-03 09:35 | Emergency (ER) | payer MEDICAID, SELFPAY ==
[2021-12-03 09:36] VITALS: BP 153/107; PULSE 85; RESP 14; TEMP 36.2; O2SAT 96; BMI 29.3
--- NOTE | 2021-12-03 09:49 | RAD_ITS ---
HISTORY: pain. TECHNIQUE: XR Pelvis 1 or 2 Views. COMPARISON: 10/01/2020. FINDINGS: OSSEOUS STRUCTURES: No acute displaced fracture identified. Note that overlapping bowel shadows may obscure osseous detail. Mineralization unremarkable. JOINT SPACES: No dislocation. Joint spaces maintained. SOFT TISSUES: Intrauterine device in the left pelvis again seen. RAD/Pelvis 1 or 2 Views IMPRESSION: No acute displaced fracture or dislocation identified. Electronically Signed: Tiffanie Verdugo MD at 10:40 EDT ,
--- NOTE | 2021-12-03 09:49 | RAD_ITS ---
HISTORY: pain. TECHNIQUE: XR Shoulder Min 2 Views. COMPARISON: None. FINDINGS: BONES : No acute fracture identified. Mineralization unremarkable. JOINTS: No dislocation. Joint spaces maintained. SOFT TISSUES: Right upper lung clear. RAD/Shoulder min 2 Views IMPRESSION: No acute fracture or dislocation identified in the right shoulder. Electronically Signed: Tiffanie Verdugo MD at 10:41 EDT ,
--- NOTE | 2021-12-03 09:49 | RAD_ITS ---
HISTORY: back pain. TECHNIQUE: XR Spine Lumbar 2 or 3 Views. COMPARISON: 03/07/2021. FINDINGS: VERTEBRAE: Vertebral body heights preserved. Posterior elements appear intact. ALIGNMENT: No significant anterior or posterior subluxation. INTERVERTEBRAL DISCS: Disc spaces maintained. SOFT TISSUES: Intrauterine device again seen. RAD/Lumbar Spine 2 or 3 Views IMPRESSION: No acute fracture or dislocation identified in the lumbar spine. Electronically Signed: Tiffanie Verdugo MD at 10:39 EDT ,
--- NOTE | 2021-12-03 09:49 | RAD_ITS ---
HISTORY: neck pain. TECHNIQUE: XR Spine Cervical 2 or 3 Views. COMPARISON: None. FINDINGS: VERTEBRAE: Vertebral body heights maintained. No acute fracture identified. ALIGNMENT: No significant anterior or posterior subluxation. Straightening of the cervical lordosis. INTERVERTEBRAL DISCS: Preservation of intervertebral disc spaces. SOFT TISSUES: Unremarkable prevertebral soft tissues. RAD/Cerv Spine 2 or 3 Views IMPRESSION: No acute fracture or dislocation identified in the cervical spine. Electronically Signed: Tiffanie Verdugo MD at 10:38 EDT ,
--- NOTE | 2021-12-03 09:51 | EX.ED.DYSGE1 ---
HPI History of Present Illness Chief Complaint: Other, Pain/Inj Detail of Chief Complaint: Neck and back pain Informant: patient Narrative Narrative: Patient with history of some chronic back pain that she has had for over a year and a half. Patient has had pain in the right hip and right buttock that radiates down her right leg. At times the lateral aspect of both feet will get numb and tingly intermittently. Patient also now complaining of right shoulder pain for about a month and a half and pain into her neck with at times numbness and tingling to the inner aspect of her left arm and hand. Patient denies any trauma to her neck or back. She denies weakness in extremities. She denies bowel or bladder dysfunction. Patient states that [facility] diagnosed with a positive OJNY and also with abnormal thyroid tests and she still to follow-up for that. Patient has been using naproxen and Motrin not get much pain relief. Prior similar symptoms: Yes PFSH PFSH Medical History Chronic neck and back pain Costochondritis, acute GERD (gastroesophageal reflux disease) Shoulder pain Home Medications omeprazole 20 mg capsule,delayed release 40 mg PO DAILY #30 CAPSULES 02/22/21 [Rx Last Taken Unknown] omeprazole 40 mg capsule,delayed release 40 mg PO DAILY 02/22/21 [History Last Taken Unknown] ondansetron 4 mg disintegrating tablet 4 mg PO Q8H PRN PRN Nausea #14 tabs 02/22/21 [Rx Last Taken Unknown] cyclobenzaprine 10 mg tablet 10 mg PO TID PRN Muscle Spasm #20 TABLETS 12/03/21 [Rx Last Taken Unknown] hydrocodone-acetaminophen 5-325mg 5mg-325mg 1 tab PO Q4H PRN PRN Pain 2 days #14 TABLETS 12/03/21 [Rx Last Taken Unknown] methylprednisolone 4 mg tablets in a dose pack (Medrol (Nestor)) 4 mg PO DAILY #21 tabs 12/03/21 [Rx Last Taken Unknown] Allergy/AdvReac Type Severity Reaction Status Date / Time Penicillins Allergy Anaphylaxis Verified 12/03/21 09:36 Family History Other Hypertension Surgical History Hx of section Social History Smoking Status: Current every day smoker tobacco type: cigarettes ROS ROS ED Review of Systems ROS Unobtainable: other Constitutional Constitutional ED: Reports lethargy; Denies chills, fever(s), sweats or weight loss Eyes Eyes: Denies blurry vision, change in vision or diplopia ENT ENT ED: Denies rhinorrhea or sore throat Cardiovascular Cardiovascular: Denies chest pain, orthopnea or racing heartbeat Respiratory/Chest Respiratory/Chest: Denies cough, dyspnea, dyspnea on exertion, orthopnea or sputum Gastrointestinal Gastrointestinal: Denies abdominal pain, diarrhea, nausea or vomiting Genitourinary Genitourinary ED: Denies dysuria, hematuria or urinary frequency Musculoskeletal Musculoskeletal: Reports back pain and neck pain; Denies arthralgias or myalgias Integumentary Denies abscess, Abrasions or rash Neurologic Neurologic: Reports paresthesias; Denies headache(s) or weakness Psychiatric Psychiatric: Denies anxiety, depression or suicidal thoughts Endocrine Endocrinology: Denies polydipsia, polyphagia or polyuria Hematologic/Lymphatic Hematologic/Lymphatic: Denies easy bleeding, easy bruising or lymphadenopathy Allergic/Immunologic Allergic/Immunologic ED: Denies mouth swelling, tongue swelling or urticaria EXAM Physical Exam Const Vital Signs: 12/03/21 09:36 Temperature 97.2 F L Temperature Source Temporal Pulse Rate 85 Respiratory Rate 14 Blood Pressure 153/107 H Blood Pressure Mean 122 Pulse Ox 96 Oxygen Delivery Method Room Air Positive well nourished and well developed General Appearance ED: well developed and NAD HEENT Reports TM's clear and moist mucous membranes normocephalic and atraumatic; Negative for trauma or tenderness Tympanic Membrane ED: Yes TM's clear Eyes PERRL and EOMs intact bilaterally General Eye ED: Negative for pale conjunctiva or scleral icterus Neck no lymphadenopathy, supple and no JVD Neck Narrative: Patient with tenderness palpation over right trapezius. Patient with some tenderness over the right cervical paraspinal musculature in the C-spine diffusely. Normal strength in the upper extremities. Normal deep tendon reflexes. Normal sensation. General: Negative for tenderness Chest Wall inspection of chest normal and palpation of chest normal Chest: Negative for tenderness Resp normal respiratory effort and clear to auscultation bilaterally Effort and Inspection: Negative for respiratory distress or pain with movement Auscultation: Negative for rhonchi, wheezes or diminished lung sounds Cardio regular rate, regular rhythm, S1 normal heart sound, S2 normal heart sound and no murmurs Peripheral Pulses: pulses 2+ throughout GI normal to inspection, nondistended, normoactive bowel sounds, soft to palpation, non-tender, non-distended and no masses Back/Spine no CVA tenderness and no thoracic nor lumbar tenderness Back/Spine Narrative: Mild diffuse tenderness palpation over the lumbar spine and right buttock. Negative straight leg raises. Deep tendon reflexes are plus 2 out of 4 bilaterally at the patella and Achilles. Patient has normal 5 extension bilaterally. Patient has normal sensation to light touch. Extremity normal to inspection General Extremety ED: Negative for edema General Extremity: Negative for edema Neuro oriented x3, CN's II-XII intact bilaterally, no sensory deficits noted and gait normal Sensorium / Orientation: awake, alert, oriented to person, oriented to place and oriented to time Motor Exam: strength 5/5 throughout and strength abnormal Psych mental status grossly normal Skin no rashes or lesions noted and no wounds MDM MDM MDM Narrative Medical decision making narrative: I will start patient on Medrol Dosepak and write prescription for Flexeril and Morrow for pain. Patient to follow-up with primary care physician within next 3 to 5 days. She is advised that she may require further imaging if symptoms persist such as possibly MRI of head neck. Also with her positive JONY some of her symptoms may be related to autoimmune disease. Radiography Diagnostic Testing: Three-view x-rays of the cervical spine obtained interpreted by myself as no acute fractures or acute disease process. 2 view x-rays of right shoulder obtained interpreted by myself as no acute fractures or acute bony lesions. Three-view x-rays of the lumbar spine obtained interpreted by myself no acute fractures or bony lesions noted. Patient also had 1 view pelvis x-ray interpreted by myself as no acute fractures and no acute disease process. Radiology in agreement Discharge Plan Triage Chief Complaint: Other, Pain/Inj ED Provider: Damari Beyer Dx/Rx/DC Orders Clinical Impression: Back pain, Neck pain Instructions: ED Chronic Pain, ED Neck Pain, ED Back and Neck Pain, General Prescriptions: New cyclobenzaprine [cyclobenzaprine] 10 mg tablet 10 mg PO TID PRN (Reason: Muscle Spasm) Qty: 20 0RF hydrocodone-acetaminophen [hydrocodone-acetaminophen] 5-325 mg tablet 1 tab PO Q4H PRN PRN (Reason: Pain) 2 Days Qty: 14 0RF methylprednisolone [Medrol (Nestor)] 4 mg tablets,dose pack 4 mg PO DAILY Qty: 21 0RF No Action omeprazole 40 mg capsule,delayed release(DR/EC) 40 mg PO DAILY Label Comments: TAKE 1 CAPSULE EVERY DAY ondansetron 4 mg tablet,disintegrating 4 mg PO Q8H PRN PRN (Reason: Nausea) Qty: 14 0RF omeprazole 20 mg capsule,delayed release(DR/EC) 40 mg PO DAILY Qty: 30 0RF Primary Care Provider: [facility] Ceci Fields Referrals: [facility] Ceci Fields [Primary Care Provider] - 3-5 Days Disposition Disposition: Home, Self Care
[2021-12-03 11:01] VITALS: BP 130/91; O2SAT 100
== END 2021-12-03 11:02 | disposition home or self-care (01) ==
LOC: ED 10:40
PROVIDERS: Emergency Provider Emergency Medicine; Visit Provider Emergency Medicine
DX: M54.9 Dorsalgia, unspecified (principal); M54.2 Cervicalgia; F17.210 Nicotine dependence, cigarettes, uncomplicated
CPT/HCPCS: 72040; 72100; 72170; 73030; 99282

== ENCOUNTER 2022-03-04 12:21 | Emergency (ER) | payer MEDICAID, SELFPAY ==
[2022-03-04 12:22] VITALS: BP 139/110; PULSE 85; RESP 16; TEMP 36.6; O2SAT 99; BMI 29.5
--- NOTE | 2022-03-04 14:08 | RAD_ITS ---
STUDY: X-RAY - LEFT FOOT CLINICAL: Female, 36 years old. Pain involving the first digit. No history of injury. TECHNIQUE: 3 view(s) of the foot. COMPARISON: Comparison is made with prior study dated 07/24/2018. FINDINGS: Normal talus, calcaneus, and tarsal bones. Normal visualized subtalar, talonavicular, calcaneocuboid, tarsal and tarsometatarsal articulations. Normal metatarsi. Normal metatarsophalangeal joint of the great toe. Normal tibial and fibular sesamoid bones. Normal interphalangeal joint of the great toe. Normal phalanges of the great toe. Normal second through fifth metatarsophalangeal joints. Normal interphalangeal joints and phalanges of the lesser toes. The soft tissue structures are unremarkable. RAD/Foot min 3 Views IMPRESSION: Normal x-ray examination of the foot. Electronically Signed: Yo Zuniga MD at 14:25 EST ,
[2022-03-04] MEDS: Ibuprofen 600 MG Tablet PO (14:39)
--- NOTE | 2022-03-04 15:06 | EDS_ITS ---
HPI History of Present Illness Chief Complaint: Lower Extremity Injury Informant: patient Narrative Narrative: Patient is a 36-year-old female with history of proximal atrial tachycardia and anxiety presenting with left foot pain. Is been worsening over the past 3 to 4 days. She denies any injury. She notes she works at [employer] and has to go up and down a lot of steps and stands a lot. She was feeling okay at work today but when she was walking home from work she started increased pain. Its worse with any type of range of motion or pressure on the foot. Seems to be on the top of the foot and come from her great toe. Denies any fever or chills. Denies any swelling of her legs. No other complaints at this time. No associated numbness or tingling. PFSH PFS Medical History Chronic neck and back pain Costochondritis, acute GERD (gastroesophageal reflux disease) Shoulder pain Home Medications omeprazole 40 mg capsule,delayed release 40 mg PO DAILY 02/22/21 [History Last Taken Unknown] cyclobenzaprine 10 mg tablet 10 mg PO TID PRN Muscle Spasm #20 TABLETS 12/03/21 [Rx Last Taken Unknown] hydrocodone-acetaminophen 5-325mg 5mg-325mg 1 tab PO Q4H PRN PRN Pain 2 days #14 TABLETS 12/03/21 [Rx Last Taken Unknown] methylprednisolone 4 mg tablets in a dose pack (Medrol (Nestor)) 4 mg PO DAILY #21 tabs 12/03/21 [Rx Last Taken Unknown] Allergy/AdvReac Type Severity Reaction Status Date / Time Penicillins Allergy Anaphylaxis Verified 03/04/22 12:24 Family History Other Hypertension Surgical History Hx of section Social History Smoking Status: Current every day smoker tobacco type: cigarettes ROS ROS ED Constitutional Constitutional ED: Denies chills or fever(s) Cardiovascular Cardiovascular: Denies chest pain or palpitations Respiratory/Chest Respiratory/Chest: Denies cough Musculoskeletal Musculoskeletal: Reports other Details: left foot pain Integumentary Denies Abrasions or rash Neurologic Neurologic: Denies paresthesias or weakness Psychiatric Psychiatric: Reports anxiety EXAM Physical Exam Const Vital Signs: 03/04/22 12:22 Temperature 97.9 F Temperature Source Temporal Pulse Rate 85 Respiratory Rate 16 Blood Pressure 139/110 H Blood Pressure Mean 119 Pulse Ox 99 Oxygen Delivery Method Room Air Positive well nourished and well developed General Appearance ED: well developed and NAD HEENT normocephalic and atraumatic Neck supple Chest Wall inspection of chest normal Resp normal respiratory effort Cardio regular rate and regular rhythm Cardio Narrative: 2+ DP and PT pulse on the left Extremity Extremity Narrative: No obvious deformity. Normal range of motion. Patient is increased pain when she tries to wiggle her toes. She points to the tendon at top her left great toe as the pain and states it radiates up and across her foot. Mildly tenderness diffusely over the dorsal midfoot with no pinpoint area of tenderness. No overlying skin changes. Neuro moves all extremities and no sensory deficits noted Motor Exam: strength 5/5 throughout; Negative for general weakness Psych Psych Narrative: Tearful Skin no wounds Rashes: no rashes MDM MDM MDM Narrative Medical decision making narrative: Patient evaluated for atraumatic left foot pain. Physical exam is pretty unremarkable. She is good distal pulses. No overlying erythema no pinpoint area of pain. Low clinical suspicion for an acute joint inflammation such as gout or infection. X-rays obtained looking for any signs of a stress fracture. This is negative for any acute process. X-ray interpreted by myself as well as radiology.Patient given an Ayo wrap as well as a postop shoe. She is given Motrin in the ER. Counseled to take 600 mg (3 of the [id number] ibuprofen) at a time for pain. Is given referral for podiatry. Given that she does not have an obvious source of the pain and I suspect this is more of a stress injury/overuse injury I do not think opioids are indicated for prescription. Patient has ibuprofen at home she can take and does not need a prescription for this. Was given a work note. Counseled return precautions. Discharged home in stable condition. Patient does not have any risk factors for pulmonary emboli, asymmetric swelling is on any control. Do not think this is DVT I do not think she needs an ultrasound. Patient is given 1 dose of IM morphine for pain control prior to discharge. Radiography X-Ray: Read by ED Physician, No Fracture and Normal Bony Alignment Diagnostic Testing: Clinical Impression(s) from Imaging Studies Foot X-Ray 03/04/22 14:08 IMPRESSION: Normal x-ray examination of the foot. Electronically Signed: Yo Zuniga MD at 14:25 EST , Discharge Plan Triage Chief Complaint: Lower Extremity Injury ED Provider: Hollie Norris Dx/Rx/DC Orders Clinical Impression: Arthralgia of foot, left, Overuse injury Instructions: ED Bandage Elastic Wrap, ED Foot Sprain Prescriptions: No Action omeprazole 40 mg capsule,delayed release(DR/EC) 40 mg PO DAILY Label Comments: TAKE 1 CAPSULE EVERY DAY cyclobenzaprine [cyclobenzaprine] 10 mg tablet 10 mg PO TID PRN (Reason: Muscle Spasm) Qty: 20 0RF hydrocodone-acetaminophen [hydrocodone-acetaminophen] 5-325 mg tablet 1 tab PO Q4H PRN PRN (Reason: Pain) 2 Days Qty: 14 0RF methylprednisolone [Medrol (Nestor)] 4 mg tablets,dose pack 4 mg PO DAILY Qty: 21 0RF Stand Alone Forms: ED Work / School Excuse [facility] Referrals: Kota Monsalve DPM [Med Staff - Active Staff] - 3-5 Days if not improving [facility] [[facility] - Activity Restrictions/Additional Instructions: Ice your foot. Try to stay off of it. Take 3 [id number] ibuprofen (a total of 600 mg) every 6 hours as needed for pain. You may alternate this with Tylenol. Disposition Disposition: Home, Self Care Discharge Date/Time: 03/04/22 15:31
[2022-03-04] MEDS: Morphine 4 MG/ML Syringe IM (15:26)
== END 2022-03-04 15:31 | disposition home or self-care (01) ==
PROVIDERS: Emergency Provider Emergency Medicine; Visit Provider Emergency Medicine
DX: M79.672 Pain in left foot (principal); F17.210 Nicotine dependence, cigarettes, uncomplicated
CPT/HCPCS: 73630; 96372; 99283

== ENCOUNTER 2022-07-12 11:03 | Emergency (ER) | payer MEDICAID, SELFPAY ==
[2022-07-12 11:03] VITALS: BP 130/87; PULSE 99; RESP 18; TEMP 35.9; O2SAT 99; BMI 30.6
--- NOTE | 2022-07-12 11:20 | CT_ITS ---
INDICATION: neck pain EXAMINATION: CT CERVICAL SPINE - CT Spine Cervical W/O Contrast Injection TECHNIQUE: Helically acquired images were obtained of the cervical spine. 2D reformatted images were reviewed. A radiation dose optimization technique was used for this scan. IV Contrast dosage and agent: None. RADIATION DOSAGE (If Supplied By Facility): CTDIvol = ( 21.38 ) mGy, DLP = ( 409.58 ) mGycm COMPARISON: FINDINGS: VERTEBRAE: There is evidence of prior anterior fusion of C5-C6 associated with a disc spacer. No fracture or traumatic subluxation. No discrete lytic or blastic abnormality. Normal craniocervical junction and cervicothoracic junction. DISCS and SPINAL CANAL: Disc heights are preserved. No critical stenosis. NECK SOFT TISSUES: No prevertebral soft tissue swelling. There is no cervical adenopathy. LUNG APICES: Clear. CT/Spine Cervical without Contras IMPRESSION: No evidence of acute cervical spinal fracture or spondylolisthesis. Postsurgical changes of C5-C6. Electronically Signed: Shima Vaughn MD at 12:18 EDT ,
--- NOTE | 2022-07-12 11:23 | EDS_ITS ---
HPI <CHARO Perez - Last Filed: 07/12/22 12:28> History of Present Illness Chief Complaint: Fall Narrative Narrative: D6-year-old female with history of anxiety, acute on chronic neck pain, recent cervical decompression surgery with anterior insertion who presents to the emergency department after mechanical fall that occurred at 2 AM last evening. Patient had this surgery 2 weeks ago, she was getting up to use the restroom, she has to go down some steps, slipped on the last 2 steps landing on her buttocks and going down 2 steps. She then got up went to the bathroom went back to bed. Today she was more sore, and she is here for evaluation. She did talk to her surgeon told her to come just to ensure that the hardware is in place. She denies any numbness or tingling to her upper extremities. She denies any weakness that is new to her lower extremities. Denies any head or neck injury. [facility] <CHARO Perez - Last Filed: 07/12/22 12:28> [facility] Medical History Chronic neck and back pain Costochondritis, acute GERD (gastroesophageal reflux disease) Shoulder pain Home Medications omeprazole 40 mg capsule,delayed release 40 mg PO DAILY 02/22/21 [History Last Taken Unknown] cyclobenzaprine 10 mg tablet 10 mg PO TID PRN Muscle Spasm #20 TABLETS 12/03/21 [Rx Last Taken Unknown] hydrocodone-acetaminophen 5-325mg 5mg-325mg 1 tab PO Q4H PRN PRN Pain 2 days #14 TABLETS 12/03/21 [Rx Last Taken Unknown] methylprednisolone 4 mg tablets in a dose pack (Medrol (Nestor)) 4 mg PO DAILY #21 tabs 12/03/21 [Rx Last Taken Unknown] Allergy/AdvReac Type Severity Reaction Status Date / Time Penicillins Allergy Anaphylaxis Verified 07/12/22 11:05 Family History Other Hypertension Surgical History Hx of section S/P spinal surgery Social History Smoking Status: Current every day smoker tobacco type: cigarettes ROS <CHARO Perez - Last Filed: 07/12/22 12:28> ROS ED ROS Narrative Constitutional: Negative for fever, chills, weight loss, weakness Eyes: Negative for vision loss, vision change, double vision ENT: Negative for any sore throat, ear pain, congestion Cardiovascular: Negative for any chest pain, tightness, palpitations Respiratory: Negative for any cough, sputum production, hemoptysis, dyspnea, dyspnea on exertion, orthopnea Gastrointestinal: Negative for any abdominal pain, nausea, vomiting, diarrhea, constipation, blood in stool, blood in vomit : Negative for any urinary frequency, dysuria, retention, blood in urine Muscle skeletal: Negative for any muscle joint pain, stiffness, myalgias, arthralgias, back pain. Positive for neck pain Neurological: Negative for any headache, syncope, numbness or tingling, dizziness Skin: Negative for any rashes, lumps, itching, abrasions, lacerations Psychiatric: Negative for any depression, anxiety, stress, suicidal ideation, homicidal ideation Hematologic: Negative for any easy bruising, excessive bruising, easy bleeding Allergies: Negative for any eczema, hives, rash EXAM <CHARO Perez - Last Filed: 07/12/22 12:28> Physical Exam Narrative Exam Narrative: Vital signs reviewed. HEET: Head normocephalic atraumatic, TMs clear bilaterally. Posterior pharynx is clear, moist mucous membranes. Nares clear bilaterally. Neck: Supple with no lymphadenopathy or tenderness. No signs of meningismus, negative jolt sign. There is a surgical incision to the left of the trachea, this appears well intact. Patient has minimal pain on the cervical spine. Patient is able to shoulder shrug, no neurological focal deficit. Patient has no difficulty speaking. No difficulty breathing. Cardiac: Regular rate and rhythm no murmurs gallops or rubs, equal peripheral pulses bilaterally. Respiratory: Lungs clear to auscultation bilaterally. No chest tenderness. Abdomen: Soft, nontender, nondistended. No abdominal bruit or pulsatile masses. No hepatosplenomegaly Extremities: No peripheral edema, no signs of gross trauma or deformity. Active full range of motion of all extremities. Patient does have 5 out of 5 strength to her upper extremities. 5 out of 5 strength to the right lower extremity. 4 out of 5 to the left lower extremity this is chronic. No neurological focal deficits. Neuro: Cranial nerves II through XII intact, no focal neurological deficits. Skin: Clean dry and intact with no rash, purpura, petechiae, vesicles or pustules. Backs/flank: No CVA tenderness, no midline spinal tenderness, no deformity. Psych: Normal mood and affect. No SI, HI or acute psychosis. Const Vital Signs: 07/12/22 11:03 Temperature 96.6 F L Temperature Source Temporal Pulse Rate 99 Respiratory Rate 18 Blood Pressure 130/87 H Blood Pressure Mean 101 Pulse Ox 99 Oxygen Delivery Method Room Air Positive well nourished and well developed General Appearance ED: well developed <Dr. Feroz Cosme DO - Last Filed: 07/12/22 12:40> Physical Exam Const Vital Signs: 07/12/22 11:03 Temperature 96.6 F L Temperature Source Temporal Pulse Rate 99 Respiratory Rate 18 Blood Pressure 130/87 H Blood Pressure Mean 101 Pulse Ox 99 Oxygen Delivery Method Room Air MDM <CHARO Perez - Last Filed: 07/12/22 12:28> MDM Radiography Diagnostic Testing: Clinical Impression(s) from Imaging Studies Cervical Spine CT 07/12/22 11:20 IMPRESSION: No evidence of acute cervical spinal fracture or spondylolisthesis. Postsurgical changes of C5-C6. Electronically Signed: Shima Vaughn MD at 12:18 EDT , Treatment and Re-Evaluation :: All radiologic examinations were read, reviewed by the emergency department attending. From these reads, a plan of care will be put in place. Patient appears well, patient appears nontoxic, vital signs are stable. Patient presents to the emergency department with complaints of neck pain following a fall, she is 2 weeks post surgery of cervical decompression surgery. Patient's physical examination was grossly unremarkable. Patient will receive a CT scan of the cervical spine just to ensure that the hardware is in place, no fracture. Patient was given oxycodone here. Patient CT scan of the cervical spine shows no evidence of acute cervical spine fracture spondylolithiasis postsurgical changes at C5-C6. At this time, patient was in a position of comfort. I spoke with the patient, she will go home, continue her daily activities as okayed by her surgeon. She will follow-up outpatient. She was given return precautions. All questions answered. Patient stable for discharge.. <Dr. Feroz Cosme, DO - Last Filed: 07/12/22 12:40> [facility] Narrative Medical decision making narrative: All radiologic examinations were read, reviewed by the emergency department attending. From these reads, a plan of care will be put in place. Patient appears well, patient appears nontoxic, vital signs are stable. Patient presents to the emergency department with complaints of neck pain following a fall, she is 2 weeks post surgery of cervical decompression surgery. Patient's physical examination was grossly unremarkable. Patient will receive a CT scan of the cervical spine just to ensure that the hardware is in place, no fracture. Patient was given oxycodone here. Patient CT scan of the cervical spine shows no evidence of acute cervical spine fracture spondylolithiasis postsurgical changes at C5-C6. At this time, patient was in a position of comfort. I spoke with the patient, she will go home, continue her daily activities as okayed by her surgeon. She will follow-up outpatient. She was given return precautions. All questions answered. Patient stable for discharge. This patient was seen with a PA/ONLINE ACTIVIST Individually assessed they patient including history and physical. I have reviewed everything on the chart that is available and agree with the documentation provided by the PA/ONLINE ACTIVIST including discussion about the assessment, treatment plan, discussion, and return precautions. Patient status post spinal fusion at C5-C6. She fell last evening. She woke up with worsening neck pain today. We obtained a CT of the cervical spine today which shows no acute fractures. She is counseled on follow-up with her surgeon. She has pain medication at home. Radiography Diagnostic Testing: Clinical Impression(s) from Imaging Studies Cervical Spine CT 07/12/22 11:20 IMPRESSION: No evidence of acute cervical spinal fracture or spondylolisthesis. Postsurgical changes of C5-C6. Electronically Signed: Shima Vaughn MD at 12:18 EDT , Discharge Plan Triage Chief Complaint: Fall ED Midlevel Provider: Guillermo Polo ED Provider: Feroz Cosme Dx/Rx/DC Orders Clinical Impression: Fall, Cervical muscle strain Instructions: ED Neck Sprain or Strain Prescriptions: No Action omeprazole 40 mg capsule,delayed release(DR/EC) 40 mg PO DAILY Label Comments: TAKE 1 CAPSULE EVERY DAY cyclobenzaprine [cyclobenzaprine] 10 mg tablet 10 mg PO TID PRN (Reason: Muscle Spasm) Qty: 20 0RF hydrocodone-acetaminophen [hydrocodone-acetaminophen] 5-325 mg tablet 1 tab PO Q4H PRN PRN (Reason: Pain) 2 Days Qty: 14 0RF methylprednisolone [Medrol (Nestor)] 4 mg tablets,dose pack 4 mg PO DAILY Qty: 21 0RF Primary Care Provider: [facility] Referrals: [facility] [Primary Care Provider] - Activity Restrictions/Additional Instructions: Follow-up with your spine surgeon. Continue taking your daily medications. Disposition Disposition: Home, Self Care Discharge Date/Time: 07/12/22 12:38
[2022-07-12] MEDS: oxyCODONE 5 MG Tablet PO (11:26)
== END 2022-07-12 12:38 | disposition home or self-care (01) ==
PROVIDERS: Emergency Provider Student in an Organized Health Care Education/Training Program; Visit Provider Student in an Organized Health Care Education/Training Program
DX: S16.1XXA Strain of muscle, fascia and tendon at neck level, initial encounter (principal); F17.210 Nicotine dependence, cigarettes, uncomplicated; W10.8XXA Fall (on) (from) other stairs and steps, initial encounter; K21.9 Gastro-esophageal reflux disease without esophagitis
CPT/HCPCS: 72125; 99282; A4216

== ENCOUNTER 2023-04-12 11:30 | Emergency (ER) | payer MEDICAID, SELFPAY ==
[2023-04-12 11:31] VITALS: BP 148/108; PULSE 102; RESP 16; TEMP 35.8; O2SAT 100; BMI 30.3
--- NOTE | 2023-04-12 11:48 | EDS_ITS ---
HPI History of Present Illness Chief Complaint: Numb/Ting PFSH PFSH Medical History Chronic neck and back pain Costochondritis, acute GERD (gastroesophageal reflux disease) Shoulder pain Home Medications omeprazole 40 mg capsule,delayed release 40 mg PO DAILY 02/22/21 [History Last Taken Unknown] cyclobenzaprine 10 mg tablet 10 mg PO TID PRN Muscle Spasm #20 TABLETS 12/03/21 [Rx Last Taken Unknown] hydrocodone-acetaminophen 5-325mg 5mg-325mg 1 tab PO Q4H PRN PRN Pain 2 days #14 TABLETS 12/03/21 [Rx Last Taken Unknown] methylprednisolone 4 mg tablets in a dose pack (Medrol (Nestor)) 4 mg PO DAILY #21 tabs 12/03/21 [Rx Last Taken Unknown] cyclobenzaprine 5 mg tablet 5 mg PO TID PRN muscle spasm #21 tabs 04/12/23 [Rx Last Taken Unknown] prednisone 50 mg tablet 50 mg PO DAILY #5 tabs 04/12/23 [Rx Last Taken Unknown] Allergy/AdvReac Type Severity Reaction Status Date / Time Penicillins Allergy Anaphylaxis Verified 04/12/23 12:26 Family History Other Hypertension Surgical History Hx of section S/P spinal surgery Social History Smoking Status: Current every day smoker tobacco type: cigarettes EXAM Physical Exam Const Vital Signs: 04/12/23 11:31 Temperature 96.5 F L Temperature Source Temporal Pulse Rate 102 H Respiratory Rate 16 Blood Pressure 148/108 H Blood Pressure Mean 121 Pulse Ox 100 Oxygen Delivery Method Room Air MDM MDM MDM Narrative Medical decision making narrative: HISTORY OF PRESENT ILLNESS: 37-year-old female presents with numbness and tingling in the left upper extremity. Notes this been going on for last 2 weeks.. Notes pain, numbness, tingling that is intermittent and worse with head movement and exertion in the left arm. Denies any trauma or falls. REVIEW OF SYSTEMS: Pertinent positives: Numbness, tingling Pertinent negatives: Neck pain, loss of sensation or movement. PHYSICAL EXAM: Nursing triage notes reviewed, Vital signs reviewed Constitutional: please see mdm Neck: No stridor, no JVD, full neck ROM, no midline step-offs deformities noted to the cervical spine, TTP over left trapezius. Positive Spurling's test to the left. Lungs: Clear to auscultation, No wheezing or rales. No increased work of breathing, no conversational dyspnea, no accessory muscle use, no nasal flaring. No respiratory distress noted Heart: Regular rate and rhythm, No murmurs, No rubs and No gallops, 2+ distal pulses (radial, femoral, posterior tibial) in all extremities Extremities: No edema Neuro: Intact 5/5 strength with ok sign (median), intact finger abduction (ul robbin) intact wrist extension (radial n). Intact sensation in the radial, ulnar, and median nerve distributions. Alert and oriented x3, neuro exam at baseline, cranial nerves II through XII are intact. No pain with extraocular muscle movement. There is negative test of skew. 5 of 5 strength in upper and lower extremities in flexion extension. Intact sensation to light touch in upper and lower extremity dermatomes. No truncal or extremity ataxia. No dysdiadochokinesia. Normal gait. 2+ reflexes in upper and lower extremities. No meningeal signs. Negative Babinski. NIH of 0. Skin: No rash or lesions noted MEDICAL DECISION MAKING: Chief Complaint: Numbness/tingling External records reviewed: Imaging studies reviewed: CT scan of the cervical spine from June 2022 shows evidence of prior anterior fusion of C5-C6, disc spacer, Factors affecting care: Cervical spine surgery Social determinants of health: Denies IV drug use [facility] Narrative: I considered the following differential diagnosis: Cervical colopathy, cervical spine fracture dislocation, acute CVA Patient was initially hemodynamically stable, afebrile and nontoxic. Bilateral upper extremity neurologic exams are intact. No signs of any focal neurologic deficits to suggest CVA. There is no report of trauma or significant neck pain to suggest bony injury. There is no indication for advanced imaging of the cervical spine at this time. Patient's clinical history and physical exam are most consistent with likely cervical radiculopathy. Will give anti-inflammatories. Will give muscle relaxers. Will give outpatient orthopedic follow-up. The patient and/or family, caregivers express understanding. The patient and/or family, caregivers agrees with the plan. Shared decision making: I will have a discussion with the patient and or visitors regarding risk/benefits of further testing or admission. They will be made aware of of the risk/benefits inherent in this decision they will be given the opportunity to voice understanding. Total critical care time today provided was at least 0 minutes. This excludes separately billable procedures. Critical care time (if documented) is secondary to the patient having high probability of clinically significant/life threatening deterioration in the patient's condition which required my urgent intervention. Impression: 1. Cervical uropathy 2. History of cervical spine surgery Dispo: Discharge This note was generated with [employer] dictation software. It may contain incorrect words, spelling, and punctuation that were not noted in review of the chart prior to signing. Discharge Plan Triage Chief Complaint: Numb/Ting ED Provider: Papo Peterson Dx/Rx/DC Orders Clinical Impression: Cervical radicular pain Instructions: Cervical Radiculopathy Prescriptions: New prednisone 50 mg tablet 50 mg PO DAILY Qty: 5 0RF cyclobenzaprine 5 mg tablet 5 mg PO TID PRN (Reason: muscle spasm) Qty: 21 0RF No Action omeprazole 40 mg capsule,delayed release(DR/EC) 40 mg PO DAILY Patient Comments: TAKE 1 CAPSULE EVERY DAY cyclobenzaprine [cyclobenzaprine] 10 mg tablet 10 mg PO TID PRN (Reason: Muscle Spasm) Qty: 20 0RF hydrocodone-acetaminophen [hydrocodone-acetaminophen] 5-325 mg tablet 1 tab PO Q4H PRN PRN (Reason: Pain) 2 Days Qty: 14 0RF methylprednisolone [Medrol (Nestor)] 4 mg tablets,dose pack 4 mg PO DAILY Qty: 21 0RF [facility] Ref[facility]: Jonas Pena MD [[facility] Staff - Active Staff] - Activity Restrictions/Additional Instructions: Thank you for trusting us with your care today! Please take Tylenol (2 pills, 650 mg), ibuprofen (2 pills, 400 mg) every 6 hours as needed for pain and fever control. Please take prednisone as prescribed. Please take Flexeril as needed Please return to the emergency department if your symptoms change or worsen. Specifically develop loss of sensation, loss of movement, severe neck pain. Please follow with your primary care physician and orthopedic surgery for further outpatient evaluation and management. Disposition Disposition: Home, Self Care
--- OUTSIDE RECORDS SUMMARY | 2023-04-12 12:14 | XMS RPT_ITS | CCD ---
Author Name Unknown Address [address] [place] [address] Organization [facility] Care Team Providers Care Timber Sizer Name Role Phone Lauren Daniel Primary Care Provider Dipak Henao MD Unavailable Corina HE, Tonya Berry Primary Care Provider Lauren Daniel Unavailable Dipak Henao MD Unavailable Carter Pierce MD Unavailable Jovanny DELACRUZ, Melania Unavailable Tonya Arriaga CNP Primary Care Provider Lauren Daniel Unavailable Dipak Henao MD Unavailable Carter Pierce MD(Historical) Unavailable Liza vailable Jovanny JAIL OFFICER, Melania Unavailable REYES ROY Admitting Unavailable MANUELA REYES Attending Unavailable TONYA ARRIAGA Primary Care Unavailable VALDEMAR NELSON Consulting Unavailable Reyes Roy MD Unavailable Wilmer Choi PA-C Unavailable Tracy FUENTES, Amarilis Unavailable Dipak Henao MD Unavailable TONYA ARRIAGA Primary Care Unavailable UNGPRASERT, PATOMPONG Referring Unavailabl e TONYA ARRIAGA Primary Care Unavailable YOVANY AVERY Referring Unavailable DANK SPRINGER Attending Unavailable TONYA ARRIAGA Primary Care Unavailable MANUELA, REYES Referring Unavailable ARRIAGA, TONYA K Primary Care Unavailable MANUELA, REYES Attending Unavailable ARRIAGA, TONYA K Primary Care Unavailable UNGPRASERT, PATOMPONG Referring Unavailabl e ARRIAGA, TONYA K Primary Care Unavailable UNGPRASERT, PATOMPONG Referring Unavailabl e ARRIAGA, TONYA K Primary Care Unavailable GODFRSABI, YOVANY Attending Unavailable ARRIAGA, TONYA K Primary Care Unavailable GODFRAY, YOVANY Referring Unavailable ARRIAGA, TONYA K Primary Care Unavailable MANUELA, REYES Referring Unavailable MANUELA, REYES Attending Unavailable ARRIAGA, TONYA K Primary Care Unavailable JAMAAL SEBASTIAN Attending Unavailable ARRIAGA, TONYA K Primary Care Unavailable UNGPRASERT, PATOMPONG Attending Unavailabl e ARRIAGA, TONYA K Primary Care Unavailable GODFRAY, YOVANY Attending Unavailable ARRIAGA, TONYA K Primary Care Unavailable GODFRAY, YOVANY Referring Unavailable MANUELA, ERYES Attending Unavailable ARRIAGA, TONYA K Primary Care Unavailable MANUELA, REYES Referring Unavailable ARRIAGA, TONYA K Primary Care Unavailable MANUELA, REYES Referring Unavailable ARRIAGA, TONYA K Primary Care Unavailable LIANET RESTREPO Referring Unavailable ARRIAGA, TONYA K Primary Care Unavailable MANUELA, REYES Referring Unavailable ARRIAGA, TONYA K Primary Care Unavailable MANUELA, REYES Referring Unavailable ARRIAGA, TONYA K Primary Care Unavailable UNGPRASERT, PATOMPONG Attending Unavailkimberly Henao MD, Dipak Berry Unavailable Tracy PT, Amarilis Unavailable Allergies Allergy Classification Reported Allergen(s) Allergy Type Date of Onset Reaction(s) Facility (11 sources) Penicillins; Translations: [PENICILLINS] Drug Allergy 10-05-2018 Anaphylaxis [facility] (20 sources) Penicillins Drug Allergy 10-05-2018 Anaphylaxis [facility] Medications Current Medications Medication Drug Class(es) Dates Sig (Normalized) Sig (Original) acetaminophen 325 mg / oxyCODONE hydrochloride 5 mg oral tablet (1 source) Opioid Agonist Start: 07-05-2022 End: 07-12-2022 take 1-2 tablets by mouth every six hours as needed for pain oxyCODONE-acetami nophen (PERCOCET) 5-325 mg tablet Indications: pain Take 1-2 tablets by mouth every 6 hours as needed for pain for up to 7 days. 56 tablet 0 07/05/2022 07/12/2022 Active Completed/Discontinued Medications Medication Drug Class(es) Dates Sig (Normalized) Sig (Original) cyclobenzaprine hydrochloride 10 mg oral tablet (5 sources) Muscle Relaxant Start: 12-03-2021 End: 06-02-2022 take 1 tablet by mouth every eight hours as needed cyclobenzaprine (FLEXERIL) 10 mg tablet Take 10 mg by mouth three times daily as needed. 0 12/03/2021 06/02/2022 Discontinued Problems Active Problems Problem Classification Problem Date Documented Da te Episodic/Chronic Abdominal pain (2 sources) Epigastric pain; Translations: [Epigastric pain] Episodic Anxiety disorders (20 sources) Anxiety attack ; Translations: [Panic disorder [episodic paroxysmal anxiety]] Onset: 2 12-24-2021 Chronic Cardiac dysrhythmias (20 sources) Atrial paroxysmal tachycardia; Translations: [Supraventricular tachycardia] Onset: 2 12-24-2021 Chronic Esophageal disorders (18 sources) Gastroesophageal reflux disease; Translations: [Gastro-esophageal reflux disease without esophagitis] Onset: Chronic Immunizations and screening for infectious disease (1 source) Anti-nuclear factor positive; Translations: [Other specified abnormal immunological findings in serum] Episodic Intestinal infection (1 source) Infection caused by Helicobacter pylori; Translations: [Other specified bacterial intestinal infections] Episodic Nausea and vomiting (2 sources) Nausea; Translations: [Nausea] Episodic Other connective tissue disease (1 source) Pain in finger of right hand; Translations: [Pain in right finger(s)] Episodic Other connective tissue disease (2 sources) Pain of bilateral upper limbs; Translations: [Pain in right arm] Episodic Other connective tissue disease (2 sources) Finding related to ability to perform hand functions; Translations: [Other symptoms and signs involving the musculoskeletal system] Episodic Other connective tissue disease (1 source) Fibromyalgia; Translations: [Fibromyalgia] 09-17-2022 Episodic Other connective tissue disease (1 source) Fibromyalgia; Translations: [Fibromyalgia] Onset: 3 Episodic Other diseases of bladder and urethra (1 source) Bladder dysfunction; Translations: [Neuromuscular dysfunction of bladder, unspecified] Chronic Other diseases of bladder and urethra (1 source) Neuromuscular dysfunction of bladder, unspecified; Translations: [Bladder dysfunction] Onset: 3 Chronic Other eye disorders (1 source) Progressive peripheral pterygium of right eye; Translations: [Peripheral pterygium, progressive, right eye] Episodic Other eye disorders (1 source) Tear film insufficiency; Translations: [Dry eye syndrome of bilateral lacrimal glands] Episodic Other gastrointestinal disorders (1 source) Heartburn; Translations: [Heartburn] Episodic Other gastrointestinal disorders (1 source) Dark stools; Translations: [Other fecal abnormalities] Episodic Other gastrointestinal disorders (1 source) Loose stool; Translations: [Other fecal abnormalities] Episodic Other infections; including parasitic (1 source) History of Helicobacter pylori infection; Translations: [Personal history of other infectious and parasitic diseases] Episodic Other nervous system disorders (20 sources) Cervical myelopathy; Translations: [Disease of spinal cord, unspecified] Onset: 3 Chronic Other nervous system disorders (1 source) Disease of spinal cord, unspecified; Translations: [Cervical myelopathy (HCC)] Onset: 3 Chronic Other nervous system disorders (2 sources) Other chronic pain; Translations: [Chronic bilateral low back pain with right-sided sciatica] Onset: 3 Chronic Other nervous system disorders (1 source) Paresthesia of foot ; Translations: [Anesthesia of skin] Episodic Other nervous system disorders (2 sources) Impairment of balance; Translations: [Other abnormalities of gait and mobility] Episodic Other non-traumatic joint disorders (1 source) Multiple joint pain; Translations: [Pain in unspecified joint] Episodic Other nutritional; endocrine; and metabolic disorders (11 sources) Obesity; Translations: [Other obesity due to excess calories] Onset: 3 Chronic Other nutritional; endocrine; and metabolic disorders (6 sources) Obesity caused by energy imbalance; Translations: [Other obesity due to excess calories] Onset: 3 06-05-2022 Chronic Other nutritional; endocrine; and metabolic disorders (1 source) Other obesity due to excess calories; Translations: [Class 1 obesity due to excess calories without serious comorbidity with body mass index (BMI) of 30.0 to 30.9 in adult] Onset: 3 Chronic Other nutritional; endocrine; and metabolic disorders (1 source) Body mass index (BMI) 30.0-30.9, adult; Translations: [Class 1 obesity due to excess calories without serious comorbidity with body mass index (BMI) of 30.0 to 30.9 in adult] Onset: 3 Chronic Residual codes; unclassified (1 source) Surgical wound finding; Translations: [Other specified health status] Episodic Substance-related disorders (18 sources) Smoker; Translations: [Nicotine dependence, unspecified, uncomplicated] Onset: 3 Chronic Past or Other Problems Problem Classification Problem Date Documented Date Episodic/Chronic Other connective tissue disease (1 source) Pain in right arm; Translations: [Pain in both upper extremities] Onset: 04-29-2022 Episodic Other connective tissue disease (1 source) Pain in left arm; Translations: [Pain in both upper extremities] Onset: 04-29-2022 Episodic Other connective tissue disease (1 source) Other symptoms and signs involving the musculoskeletal system; Translations: [Impaired dexterity] Onset: 04-29-2022 Episodic Other nervous system disorders (1 source) Other abnormalities of gait and mobility; Translations: [Imbalance] Onset: 04-29-2022 Episodic Other non-traumatic joint disorders (1 source) Pain in unspecified joint; Translations: [Multiple joint pain] Onset: 03-17-2022 Episodic Residual codes; unclassified (10 sources) Postoperative state; Translations: [Other specified postprocedural states] Onset: 07-04-2022 07-04-2022 Episodic Spondylosis; intervertebral disc disorders; other back problems (20 sources) Chronic low back pain; Translations: [Lumbago with sciatica, right side] Onset: 03-17-2022 Episodic Results Test Name Value Interpretation Reference Range Facil ity Vital Signs Date Time Vital Sign Value Performing Clinician Anabel srinivasan 09-17-2022 13:20-0400 Body height 175.3 cm Garcia Cuellar MD Work Phone: [facility] 09-17-2022 13:20-0400 Body temperature 97.7 [degF] Garcia Cuellar MD Work Phone: [facility] 09-17-2022 13:20-0400 Body weight 95.94 kg Garcia Cuellar MD Work Phone: [facility] 09-17-2022 13:20-0400 Diastolic blood pressure 96 mm[Hg] Garcia Cuellar MD Work Phone: [facility] 09-17-2022 13:20-0400 Heart rate 81 /min Garcia Cuellar MD Work Phone: [facility] 09-17-2022 13:20-0400 Systolic blood pressure 136 mm[Hg] Garcia Cuellar MD Work Phone: [facility] 08-21-2022 12:16-0400 Body temperature 99.19 [degF] Reyes Roy MD Work Phone: [facility] 08-21-2022 12:16-0400 Diastolic blood pressure 85 mm[Hg] Reyes Roy MD Work Phone: [facility] 08-21-2022 12:16-0400 Heart rate 72 /min Reyes Roy MD Work Phone: [facility] 08-21-2022 12:16-0400 Systolic blood pressure 130 mm[Hg] Reyes Roy MD Work Phone: [facility] 07-23-2022 10:38-0400 Body temperature 98.4 [degF] Marcelina Alvarez PT Work Phone: [facility] 07-23-2022 10:38-0400 Diastolic blood pressure 88 mm[Hg] Marcelina Alvarez PT Work Phone: [facility] 07-23-2022 10:38-0400 Heart rate 69 /min Marcelina Alvarez PT Work Phone: [facility] 07-23-2022 10:38-0400 Respiratory rate 16 /min Marcelina Alvarez PT Work Phone: [facility] 07-23-2022 10:38-0400 SaO2% (BldA) [Mass fraction] 99 % Marcelina Alvarez PT Work Phone: [facility] 07-23-2022 10:38-0400 Systolic blood pressure 124 mm[Hg] Marcelina Alvarez PT Work Phone: [facility] 07-22-2022 14:22-0400 Body temperature 97.59 [degF] Meeta Lety FLOOR COVERING INSTALLER Work Phone: [facility] 07-22-2022 14:22-0400 Diastolic blood pressure 84 mm[Hg] Meeta Lety FLOOR COVERING INSTALLER Work Phone: [facility] 07-22-2022 14:22-0400 Heart rate 77 /min Meeta Lety FLOOR COVERING INSTALLER Work Phone: [facility] 07-22-2022 14:22-0400 Respiratory rate 18 /min Meeta Lety FLOOR COVERING INSTALLER Work Phone: [facility] 07-22-2022 14:22-0400 SaO2% (BldA) [Mass fraction] 99 % Meeta Lety FLOOR COVERING INSTALLER Work Phone: [facility] 07-22-2022 14:22-0400 Systolic blood pressure 124 mm[Hg] Meeta Lety FLOOR COVERING INSTALLER Work Phone: [facility] 07-22-2022 13:48-0400 Heart rate 88 /min Caty Bousfield OT/L Work Phone: [facility] 07-22-2022 13:48-0400 SaO2% (BldA) [Mass fraction] 99 % Caty Bousfield OT/L Work Phone: [facility] 07-22-2022 13:13-0400 Body temperature 97.9 [degF] Caty Bousfield OT/L Work Phone: [facility] 07-22-2022 13:13-0400 Diastolic blood pressure 80 mm[Hg] Caty Bousfield OT/L Work Phone: [facility] 07-22-2022 13:13-0400 Systolic blood pressure 120 mm[Hg] Caty Bousfield OT/L Work Phone: [facility] 07-07-2022 12:27-0400 Body temperature 98.8 [degF] Troy Giffels PT Work Phone: [facility] 07-07-2022 12:27-0400 Diastolic blood pressure 70 mm[Hg] Troy Giffels PT Work Phone: [facility] 07-07-2022 12:27-0400 Heart rate 63 /min Troy Giffels PT Work Phone: [facility] 07-07-2022 12:27-0400 Respiratory rate 18 /min Troy Giffels PT Work Phone: [facility] 07-07-2022 12:27-0400 SaO2% (BldA) [Mass fraction] 94 % Troy Giffels PT Work Phone: [facility] 07-07-2022 12:27-0400 Systolic blood pressure 100 mm[Hg] Troy Giffels PT Work Phone: [facility] 06-04-2022 15:25-0400 Body height 175.3 cm Pacc 1 Work Phone: [facility] 06-04-2022 15:25-0400 Body temperature 99.7 [degF] Pacc 1 Work Phone: [facility] 06-04-2022 15:25-0400 Body weight 94.8 kg Pacc 1 Work Phone: [facility] 06-04-2022 15:25-0400 Diastolic blood pressure 84 mm[Hg] Pacc 1 Work Phone: [facility] 06-04-2022 15:25-0400 Heart rate 85 /min Pacc 1 Work Phone: [facility] 06-04-2022 15:25-0400 Respiratory rate 16 /min Pacc 1 Work Phone: [facility] 06-04-2022 15:25-0400 SaO2% (BldA) [Mass fraction] 94 % Pacc 1 Work Phone: [facility] 04-12-2023 15:25-0400 Systolic blood pressure 120 mm[Hg] Pacc 1 Work Phone: [facility] 06-02-2022 15:06-0400 Diastolic blood pressure 86 mm[Hg] Reyes Roy MD Work Phone: [facility] 06-02-2022 15:06-0400 Heart rate 84 /min Reyes Roy MD Work Phone: [facility] 06-02-2022 15:06-0400 Systolic blood pressure 138 mm[Hg] Reyes Roy MD Work Phone: [facility] 04-29-2022 10:00-0500 Diastolic blood pressure 84 mm[Hg] Dank Golias PT Work Phone: [facility] 04-29-2022 10:00-0500 Systolic blood pressure 122 mm[Hg] Dank Golias PT Work Phone: [facility] 04-23-2022 09:05-0500 Body height 175.3 cm Yovany Trippfray PA-C Work Phone: [facility] 04-23-2022 09:05-0500 Body weight 92.08 kg Yovany Trippfray PA-C Work Phone: [facility] 04-23-2022 09:05-0500 Diastolic blood pressure 87 mm[Hg] Yovany Godfray PA-C Work Phone: [facility] 04-23-2022 09:05-0500 Heart rate 83 /min Yovany Trippfray PA-C Work Phone: [facility] 04-23-2022 09:05-0500 Systolic blood pressure 137 mm[Hg] Yovany Godfray PA-C Work Phone: [facility] 03-17-2022 12:56-0500 Body temperature 96.49 [degF] Garcia Cuellar MD Work Phone: [facility] 03-17-2022 12:56-0500 Body weight 90.27 kg Garcia Cuellar MD Work Phone: [facility] 03-17-2022 12:56-0500 Diastolic blood pressure 76 mm[Hg] Garcia Cuellar MD Work Phone: [facility] 03-17-2022 12:56-0500 Heart rate 76 /min Garcia Cuellar MD Work Phone: [facility] 03-17-2022 12:56-0500 Systolic blood pressure 112 mm[Hg] Garcia Cuellar MD Work Phone: [facility] 05-23-2021 11:50-0400 Diastolic blood pressure 80 mm[Hg] Mckinley Mendez MD Work Phone: [facility] 05-23-2021 11:50-0400 Heart rate 68 /min Mckinley Mendez MD Work Phone: [facility] 05-23-2021 11:50-0400 Respiratory rate 16 /min Mckinley Mendez MD Work Phone: [facility] 05-23-2021 11:50-0400 SaO2% (BldA) [Mass fraction] 100 % Mckinley Mendez MD Work Phone: [facility] 05-23-2021 11:50-0400 Systolic blood pressure 120 mm[Hg] Mckinley Mendez MD Work Phone: [facility] 05-23-2021 11:30-0400 Body temperature 97.81 [degF] Mckinley Mendez MD Work Phone: [facility] 05-23-2021 10:38-0400 Body height 175.3 cm Mckinley Mendez MD Work Phone: [facility] 05-23-2021 10:38-0400 Body weight 84.82 kg Mckinley Mendez MD Work Phone: [facility] 05-21-2021 11:03-0400 Body temperature 98.01 [degF] Tiera Waddell PA-C Work Phone: [facility] 05-21-2021 11:03-0400 Body weight 84.55 kg Tiera Athy PA-C Work Phone: [facility] 05-21-2021 11:03-0400 Diastolic blood pressure 68 mm[Hg] Tiera Athy PA-C Work Phone: [facility] 05-21-2021 11:03-0400 Heart rate 54 /min Tiera Athy PA-C Work Phone: [facility] 05-21-2021 11:03-0400 Respiratory rate 18 /min Tiera Athy PA-C Work Phone: [facility] 05-21-2021 11:03-0400 SaO2% (BldA) [Mass fraction] 97 % Tiera Athy PA-C Work Phone: [facility] 05-21-2021 11:03-0400 Systolic blood pressure 122 mm[Hg] Tiera Athy PA-C Work Phone: [facility] Encounters Encounter Date Encounter Type Care Provider Facility Start: 11-27-2022 End: 11-27-2022 ambulatory TONYA ARRIAGA Facility:[facility] Start: 11-27-2022 End: 11-27-2022 ambulatory Reyes Roy MD Work Phone: Neurosurgery Procedures Date Procedure Procedure Detail Performing Clinician Start: 11-25-2022 Radex spine cervical 2 or 3 views Reyes Roy MD Work Phone: Start: 06-10-2022 Ct cervical spine w/ o contrast material Reyes Roy MD Work Phone: Start: 06-04-2022 Antibody screen TONYA BONNER Plan of Treatment Date Care Activity Detail Author Start: 11-21-2022 End: 09-20-2023 Radex spine cervical 2 or 3 views XR CERV GENERAL 2V AP/LAT Radiology Routine Cervical myelopathy (HCC) Expected: 11/21/2022 (Approximate), Expires: 09/20/2023 [facility] Work Phone: Payers Date Payer Category Payer Medicaid [id number] 2018 Medicaid [employer] [id number] 2018-Present [phone] [address] [place] [address] Medicaid [id number] 2018 Medicaid [id number] 2018 Medicaid [id number] Social History Date Type Detail Facility Start: 10-05-2018 End: 12-24-2021 Tobacco smoking status NHIS Smokes tobacco daily [facility] Start: 10-05-2018 End: 12-24-2021 Tobacco use and exposure Smokeless tobacco non-user [facility] Start: 05-21-2021 End: 06-04-2022 Alcohol intake Current drinker of alcohol (finding) [facility] Start: 1985 Sex Assigned At Female [facility] Start: 05-11-2021 End: 05-23-2021 Exposure to SARS-CoV-2 (event) Not sure [facility] Work Phone: History of tobacco use Cigarette Smoker C [facility] Start: 12-24-2021 End: 03-08-2022 Cigarettes smoked current (pack per day) - Reported 1 [facility] Start: 06-04-[address] [facility] Start: 03-08-2022 End: 09-17-2022 Tobacco use panel [facility] Adult Depression Screening Assessment 2 [facility] Start: 01-29-2021 Gender identity Identifies as female gender (finding) [facility] Start: 01-29-2021 Sexual orientation Bisexual (finding ) [facility] Medical Equipment Procedure Code Equipment Code Equipment Origin al Text Equipment Identifier Dates Grft I-Factor Pe Putty 1cc - [id number] Start: 07-04-2022 Daniel Plate, 1 Level, Sz 18mm [id number] Start: 07-04-2022 Screw Bn 4mm 14m m Daniel Spnl - [id number] Start: 07-04-2022 Spacer Avs 4d 7m m Spinal Bone Plug [id number] Start: 07-04-2022 Clinical Notes 05-21-2021 to 11-27-2022 Reyes Roy MD - 11/27/2022 8:41 AM EDTUngpraromeltGarcia MD - 09/17/2022 2:00 PM EDTTelephone Encounter - Alpa Perezguru Saldana - 08/22/2022 2:25 PM EDTPatient InstructionsPatient Instructions Note Date & Type Note Facility 11-27-2022 Note HNO ID: [id number] Author: Reyes Roy MD Service: ? Author Type: Physician Type: Progress Notes Filed: 11/27/2022 9:00 AM Note Text: SPINE SURGERY ESTABLISHED VISIT This is a virtual visit using [employer] Video Visit. It required patient-provider interaction for the medical decision making as documented below. I have communicated my name and active licensure. The patient's identity and physical location were verified at the time of this visit. Either the patient or their legal telemarketing representative has been informed of the risks and benefits of -- and alternatives to -- treatment through a remote evaluation and consents to proceed with the evaluation remotely. DATE OF SERVICE: 11/27/2022 SUBJECTIVE: HPI:Tammy Anna is a 37 year old female presenting as f/u s/p C5/6 ACDF on 07/04/22. She notes continued improvement/resolution of her arm/hand symptoms with improvement in dexterity and hand cramping/pain. She only has a little bit of numbness in her arms when she wakes up in the morning. However she has noticed worsening of her leg numbness/pain and diffuse muscle pains. She also has noted her legs will sometimes give out. Additionally, she has pain in the scapular region on the right side, and she even notes that sometimes she feels like she has pain in her lung. She even feels short of breath at times. She did see a radio aerial installer, and they felt she may have fibromyalgia, however she did not tolerate Lyrica. OBJECTIVE: PHYSICAL EXAM: Examined virtually Awake, alert, no acute distress Incision clean dry intact Moves arms and legs with grossly full strength X-ray today shows hardware in good position with no evidence of complication ASSESSMENT/PLAN (M48.02) Cervical stenosis of spine (primary encounter diagnosis) In summary, Tammy Anna is a very pleasant 37 year old female with cervical disc herniation status post C5-6 ACDF. She has noted improvement in many of her upper extremity symptoms from preoperatively, however she does continue to note diffuse muscle weakness/pain, especially in the lower extremities. Additionally, she has scapular pain. This may be muscular in etiology, so I would recommend some physical therapy for muscle stretching/strengthening. I asked her to reach out to her primary physician as well to evaluate for any other pain that she may be having that she describes as in her lung. Additionally I told her that if she has any sudden shortness of breath or chest pain, that she should go to the emergency room. I also asked that she continue to follow with the radio aerial installer for additional evaluation and treatments, as I do not think her lower extremity symptoms are related to her surgery or spine pathology. I will plan to see her back in 6 months with another set of x-rays hopefully she will have a durable benefit from C5-6 ACDF. S/p C5/6 ACDF: PT for strengthening/stretching upper back F/u with PCP and rheumatology Return in 6 months with vv and x-ray prior SIGNATURE: Reyes Roy MD PATIENT NAME: Tammy Anna DATE: November 27, 2022 TIME: 8:41 AM PAGER: I spent a total of 20 minutes on the date of the service which included preparing to see the patient, [id number] patient care, completing clinical documentation, obtaining and/or reviewing separately obtained history, performing a medically appropriate examination, counseling and educating the patient/family/caregiver, communicating with other HCPs (not separately reported), and independently interpreting results (not separately reported). [facility] 11-27-2022 History of Presen t illness Narrative SPINE SURGERY ESTABLISHED VISIT This is a virtual visit using [employer] Video Visit. It required patient-provider interaction for the medical decision making as documented below. I have communicated my name and active licensure. The patient's identity and physical location were verified at the time of this visit. Either the patient or their legal telemarketing representative has been informed of the risks and benefits of -- and alternatives to -- treatment through a remote evaluation and consents to proceed with the evaluation remotely. DATE OF SERVICE: 11/27/2022 SUBJECTIVE: HPI:Tammy Anna is a 37 year old female presenting as f/u s/p C5/6 ACDF on 07/04/22. She notes continued improvement/resolution of her arm/hand symptoms with improvement in dexterity and hand cramping/pain. She only has a little bit of numbness in her arms when she wakes up in the morning. However she has noticed worsening of her leg numbness/pain and diffuse muscle pains. She also has noted her legs will sometimes give out. Additionally, she has pain in the scapular region on the right side, and she even notes that sometimes she feels like she has pain in her lung. She even feels short of breath at times. She did see a radio aerial installer, and they felt she may have fibromyalgia, however she did not tolerate Lyrica. OBJECTIVE: PHYSICAL EXAM: Examined virtually Awake, alert, no acute distress Incision clean dry intact Moves arms and legs with grossly full strength X-ray today shows hardware in good position with no evidence of complication ASSESSMENT/PLAN (M48.02) Cervical stenosis of spine (primary encounter diagnosis) In summary, Tammy Anna is a very pleasant 37 year old female with cervical disc herniation status post C5-6 ACDF. She has noted improvement in many of her upper extremity symptoms from preoperatively, however she does continue to note diffuse muscle weakness/pain, especially in the lower extremities. Additionally, she has scapular pain. This may be muscular in etiology, so I would recommend some physical therapy for muscle stretching/strengthening. I asked her to reach out to her primary physician as well to evaluate for any other pain that she may be having that she describes as in her lung. Additionally I told her that if she has any sudden shortness of breath or chest pain, that she should go to the emergency room. I also asked that she continue to follow with the radio aerial installer for additional evaluation and treatments, as I do not think her lower extremity symptoms are related to her surgery or spine pathology. I will plan to see her back in 6 months with another set of x-rays hopefully she will have a durable benefit from C5-6 ACDF. S/p C5/6 ACDF: PT for strengthening/stretching upper back F/u with PCP and rheumatology Return in 6 months with vv and x-ray prior SIGNATURE: Reyes Roy MD PATIENT NAME: Tammy Anna DATE: November 27, 2022 TIME: 8:41 AM PAGER: I spent a total of 20 minutes on the date of the service which included preparing to see the patient, [id number] patient care, completing clinical documentation, obtaining and/or reviewing separately obtained history, performing a medically appropriate examination, counseling and educating the patient/family/caregiver, communicating with other HCPs (not separately reported), and independently interpreting results (not separately reported). documented in this encounter [facility] 11-25-2022 Note HNO ID: [id number] Author: Madisyn Sen RT(R) Service: ? Author Type: Special Education Classroom Aide Type: Progress Notes Filed: 11/25/2022 11:47 AM Note Text: Radiology Service Progress Note PATIENT NAME: Tammy Anna DATE OF SERVICE: November 25, 2022 TIME: 11:32 AM PATIENT IDENTITY VERIFICATION COMPLETED USING TWO (2) IDENTIFIERS: Name and Date of confirmed by patient verbally. FALL SCREENING: Has the patient had 2 falls in the last year or 1 fall with injury or currently using an Ambulatory Assistive Device (Walker, Cane, Wheelchair, Crutches, etc.)? No PATIENT GENDER DATA: Female. status: : No status: NO. PATIENT RELEVANT IMPLANT DATA REVIEWED: Yes RADIOLOGY DEPARTMENT: General X-ray: Exam(s) Completed: Spine X-Ray(s): Cervical AP / LAT PERIPHERAL IV DATA: Not applicable SIGNED BY: RT Inge(R) November 25, 2022 11:32 AM [facility] 09-17-2022 Note HNO ID: [id number] Author: Rita Leung RT(R) Service: ? Author Type: Special Education Classroom Aide Type: Progress Notes Filed: 09/17/2022 2:28 PM Note Text: Radiology Service Progress Note PATIENT NAME: Tammy Anna DATE OF SERVICE: September 17, 2022 TIME: 2:27 PM PATIENT IDENTITY VERIFICATION COMPLETED USING TWO (2) IDENTIFIERS: Name and Date of confirmed by patient verbally. FALL SCREENING: Has the patient had 2 falls in the last year or 1 fall with injury or currently using an Ambulatory Assistive Device (Walker, Cane, Wheelchair, Crutches, etc.)? No PATIENT GENDER DATA: Female. status: : No status: NO. PATIENT RELEVANT IMPLANT DATA REVIEWED: Not Applicable RADIOLOGY DEPARTMENT: General X-ray: Exam(s) Completed: Spine X-Ray(s): Cervical AP / LAT PERIPHERAL IV DATA: Not applicable SIGNED BY: Rita Leung, RT(R) September 17, 2022 2:27 PM [facility] 09-17-2022 Note HNO ID: [id number] Author: Garcia Cuellar MD Service: ? Author Type: Physician Type: Progress Notes Filed: 09/17/2022 3:16 PM Note Text: MD Tammy Cervantes September 16, 2022 Referring Provider: PCP: Tonya Arriaga CNP Chief Complaint: Patient presents with: Joint Pain Background Rheumatologic History: She has been dealing with chronic diffuse pain for more than 7 years. The pain is everywhere in her body. It affects her joints, bone and soft tissue. It is more prominent on the right side. It is aggravated by physical activities. The pain tend to be at the worst with end of the day and not in the morning although she describes some morning stiffness. No joint swelling. The pain is usually worse in her back associated with intermittent sharp shooting pain down to her calf bilaterally. She also describes occasional numbness/tingling in her legs and feet. She has been using Tylenol and Advil as needed with minimal benefit. She complains of chest pain around her chest bone. It comes and goes. She also complains of wheezing and chest tightness. She complains of chronic diarrhea but investigations including colonoscopy are unremarkable. Review of system is negative for rash, malar rash, photosensitivity, frequent oral ulcer, objective fever or other CTD symptoms. She is adopted. Therefore, she does not know much about her biological family. She was seen by a local provider. Reportedly, her JONY is positive. Therefore, the patient is referred to see me. I first saw her 03/17/22 Physical exam is negative for active synovitis but positive for soft tissue tender points. All serologies and inflammatory markers are negative except for JUNIOR HIGH MATH TEACHER of 1.1. XR shows DJD and scoliosis. I refer her to spine clinic. Interim History: Patient returns for follow up, last visit Visit date not found. She saw Yovany. Cervical MRI is showing C5-6 right disc protrusion resulting in severe canal stenosis and indentation of right greater than left cord with right>left foraminal narrowing. He was then referred to spine surgeon. She underwent C5-6 ACDF with plating 07/04/2022. The surgery helps with her pain, worship director strength, dexterity, tingling sensation and balance. She did quite well postoperatively until 2 weeks ago that she fell. The aforementioned symptoms have returned after the fall. This surgery does not help with her diffuse muscle pain though. PAST MEDICAL HISTORY Diagnosis Date Cervical disc disease Generalized anxiety disorder PAST SURGICAL HISTORY Procedure Laterality Date COLONOSCOPY 05/23/2021 EGD 05/23/2021 Social History Tobacco Use Smoking status: Every Day Packs/day: 1.00 Years: 23.00 Total pack years: 23.00 Types: Cigarettes Smokeless tobacco: Never Vaping Use Vaping Use: Some days Substance Use Topics Alcohol use: Yes Comment: occasionally Drug use: Yes Types: Marijuana Comment: medical card Health Maintenance HEPATITIS B(1 of 3 - 3-dose series) Never done COVID-19 VACCINE(1) Never done PNEUMOCOCCAL(1 - PCV) Never done HEPATITIS C SCREENING Never done HIV SCREENING Never done DTAP,TDAP,TD(1 - Tdap) Never done PAP TESTING Never done HPV TESTING Never done DEPRESSION ASSESSMENT Never done There is no immunization history on file for this patient. Current Outpatient Medications Medication Sig Dispense Refill loratadine (CLARITIN) 10 mg tablet Take 10 mg by mouth once daily. pregabalin (LYRICA) 75 mg capsule Take 1 capsule by mouth twice daily. 60 capsule 11 omeprazole (PRILOSEC) 40 mg capsule Take 1 capsule by mouth once daily. (Patient not taking: Reported on 09/17/2022) 30 capsule 5 No current facility-administered medications for this visit. ALLERGIES Allergen Reactions Penicillins Anaphylaxis Physical Exam: BP 136/96 Pulse 81 Temp (Src) 97.7 (Temporal) Ht 5' 9 (1.75m) Wt 211 lb 8 oz (95.9kg) LMP 05/19/2021 BMI 31.22 kg/(m2). General: Not pale, no jaundice, not in acute distress Head: Normocephalic, atraumatic Eyes: No redeye, no discharge ENT: No oral/nasal ulcer Neck: No lymphadenopathy Lungs: Normal breath sound, no adventitious sound Abdomen: Soft, not tender CV: Normal S1 S2, no murmur, no rub, pulse regular Skin: No rash, no malar rash, no telangiectasia, no pitting nail/onycholysis, no gross periungual telangiectasia Neuro: Grossly intact, motor power 5 all Joints No active synovitis Positive soft tissue tender points in: Low cervical anterior BL Edge of sternum BL Lateral epicondyle BL Medial Knee BL Occiput BL Greater trochanter BL Gluteal BL Trapezius BL Supraspinatus BL Impression: Cervical myelopathy s/p C5/6 ACDF Fibromyalgia The surgery helps but her symptoms have returned after the fall. I will repeat her cervical x-ray today and will let Dr. Roy know about this. Her diffuse muscle and soft tissue pain probably (more content not included)... [facility] 09-17-2022 History of Presen t illness Narrative MD Tammy Cervantes September 16, 2022 Referring Provider: PCP: Tonya Arriaga CNP Chief Complaint: Patient presents with: Joint Pain Background Rheumatologic History: She has been dealing with chronic diffuse pain for more than 7 years. The pain is everywhere in her body. It affects her joints, bone and soft tissue. It is more prominent on the right side. It is aggravated by physical activities. The pain tend to be at the worst with end of the day and not in the morning although she describes some morning stiffness. No joint swelling. The pain is usually worse in her back associated with intermittent sharp shooting pain down to her calf bilaterally. She also describes occasional numbness/tingling in her legs and feet. She has been using Tylenol and Advil as needed with minimal benefit. She complains of chest pain around her chest bone. It comes and goes. She also complains of wheezing and chest tightness. She complains of chronic diarrhea but investigations including colonoscopy are unremarkable. Review of system is negative for rash, malar rash, photosensitivity, frequent oral ulcer, objective fever or other CTD symptoms. She is adopted. Therefore, she does not know much about her biological family. She was seen by a local provider. Reportedly, her JONY is positive. Therefore, the patient is referred to see me. I first saw her 03/17/22 Physical exam is negative for active synovitis but positive for soft tissue tender points. All serologies and inflammatory markers are negative except for JUNIOR HIGH MATH TEACHER of 1.1. XR shows DJD and scoliosis. I refer her to spine clinic. Interim History: Patient returns for follow up, last visit Visit date not found. She saw Yovany. Cervical MRI is showing C5-6 right disc protrusion resulting in severe canal stenosis and indentation of right greater than left cord with right>left foraminal narrowing. He was then referred to spine surgeon. She underwent C5-6 ACDF with plating 07/04/2022. The surgery helps with her pain, worship director strength, dexterity, tingling sensation and balance. She did quite well postoperatively until 2 weeks ago that she fell. The aforementioned symptoms have returned after the fall. This surgery does not help with her diffuse muscle pain though. PAST MEDICAL HISTORY Diagnosis Date Cervical disc disease Generalized anxiety disorder PAST SURGICAL HISTORY Procedure Laterality Date COLONOSCOPY 05/23/2021 EGD 05/23/2021 Social History Tobacco Use Smoking status: Every Day Packs/day: 1.00 Years: 23.00 Total pack years: 23.00 Types: Cigarettes Smokeless tobacco: Never Vaping Use Vaping Use: Some days Substance Use Topics Alcohol use: Yes Comment: occasionally Drug use: Yes Types: Marijuana Comment: medical card Health Maintenance HEPATITIS B(1 of 3 - 3-dose series) Never done COVID-19 VACCINE(1) Never done PNEUMOCOCCAL(1 - PCV) Never done HEPATITIS C SCREENING Never done HIV SCREENING Never done DTAP,TDAP,TD(1 - Tdap) Never done PAP TESTING Never done HPV TESTING Never done DEPRESSION ASSESSMENT Never done There is no immunization history on file for this patient. Current Outpatient Medications Medication Sig Dispense Refill loratadine (CLARITIN) 10 mg tablet Take 10 mg by mouth once daily. pregabalin (LYRICA) 75 mg capsule Take 1 capsule by mouth twice daily. 60 capsule 11 omeprazole (PRILOSEC) 40 mg capsule Take 1 capsule by mouth once daily. (Patient not taking: Reported on 09/17/2022) 30 capsule 5 No current facility-administered medications for this visit. ALLERGIES Allergen Reactions Penicillins Anaphylaxis Physical Exam: BP 136/96 Pulse 81 Temp (Src) 97.7 (Temporal) Ht 5' 9 (1.75m) Wt 211 lb 8 oz (95.9kg) LMP 05/19/2021 BMI 31.22 kg/(m^2). General: Not pale, no jaundice, not in acute distress Head: Normocephalic, atraumatic Eyes: No redeye, no discharge ENT: No oral/nasal ulcer Neck: No lymphadenopathy Lungs: Normal breath sound, no adventitious sound Abdomen: Soft, not tender CV: Normal S1 S2, no murmur, no rub, pulse regular Skin: No rash, no malar rash, no telangiectasia, no pitting nail/onycholysis, no gross periungual telangiectasia Neuro: Grossly intact, motor power 5 all Joints No active synovitis Positive soft tissue tender points in: Low cervical anterior BL Edge of sternum BL Lateral epicondyle BL Medial Knee BL Occiput BL Greater trochanter BL Gluteal BL Trapezius BL Supraspinatus BL Impression: Cervical myelopathy s/p C5/6 ACDF Fibromyalgia The surgery helps but her symptoms have returned after the fall. I will repeat her cervical x-ray today and will let Dr. Roy know about this. Her diffuse muscle and soft tissue pain probably not caused by cervical myelopathy. Comprehensive investigation also does not reveal any positive serologies (JUNIOR HIGH MATH TEACHER of 1.1 is essentially negative) or elevated inflammatory markers. Therefore, I do not think that we are dealing with inflammatory arthritis or systemic autoimmune connective tissue disease. Given the presence of diffuse soft tissue tender spots, I think that fibromyalgia is the most likely cause of her chronic pain and fatigue. Recommendations/Plan Plan discussed with patient Pathophysiology, natural history and treatment of fibromyalgia are discussed with the patient. Patient information material on fibromyalgia is also given to her. I will start her on pregabalin for fibromyalgia. Side effects including drowsiness discussed with the patient. I also discuss with her that if pregabalin does not work, I may need to refer her to pain specialist later. Return Visit: 3 months. The patient is advised to call my office. I spent a total of 40 minutes on the date of the service which included preparing to see the patient, [id number] patient care, completing clinical documentation, obtaining and/or reviewing separately obtained history, performing a medically appropriate examination, counseling and educating the patient/family/caregiver, and ordering medications, tests, or procedures. Garcia Cuellar MD Referring Provider: PCP: Tonya Arriaga CNP Answers submitted by the patient for this visit: Review of Systems Rheumatology (Submitted on 09/16/2022) Fever : No Recent Unintentional Weight Change: Yes Eye Pain: Yes Vision Disturbance: Yes Eye Dryness: Yes Nose Bleeds: No Sores in your Mouth: No Trouble Swallowing: Yes Dry Mouth: Yes Chest Pain: Yes Leg Swelling: No A Cough: Yes Blood when you Cough: Yes Shortness of Breath: Yes Pain with Breathing: Yes Heartburn: Yes Abdominal Pain: Yes Diarrhea: Yes Black Tarry Stools: No Blood in Urine: No Pain or Burning with Urination: No Joint Pain or Stiffness: Yes Muscle Weakness: Yes Muscle Aches: Yes Joint Swelling: Yes Morning Stiffness in Joints: Yes A Rash: Yes Do you have sun sensitive rashes?: No Skin Color Changes: No Hair Loss: No Nail Changes: No Headaches: Yes Numbness: Yes Memory Loss: Yes Swollen Glands: Yes documented in this encounter [facility] 08-22-2022 Miscellaneous Notes NI PHONE Name of caller : Tammy Relationship to patient : Self Was permission obtained from patient ? Yes Patient identified by Name and Date of . ( Tammy Bustillo Ranjan, 1985). Yes Reason for Call : Patient called back and she would like to add the weight limit per her request: Start with a 15 lbs weight limit for 1st week, then a 20 lbs weight limit for 2nd week, then 30 lbs weight limit for 3rd week, then no limit if tolerating well. Alpa Saldana Letter sent through [employer] NI PHONE Name of caller : Tammy Relationship to patient : Self Was permission obtained from patient ? Yes Patient identified by Name and Date of . ( Tammy Anna, 1985). Yes Reason for Call : Patient called asking for RTW letter, she saw Dr. Roy and he cleared her to be back to work on Friday 08/25, patient would like a letter so she can show it to her employer, RTW letter can be sent through my chart per patient's request. Alpa Saldana documented in this encounter [facility] 08-21-2022 Note HNO ID: [id number] Author: Reyes Roy MD Service: ? Author Type: Physician Type: Progress Notes Filed: 08/21/2022 12:35 PM Note Text: SPINE SURGERY FOLLOW UP This is an in-person visit. CC: Yovany Avery SERVICE DATE: 08/21/22 SURGERY DATE: 07/04/2022 Tammy Anna is seen for 6 week post operative follow up s/p C5/6 ACDF. Preop, had arm pain, right thumb cramping, worship director weakness, difficulty with dexterity, dropping things, and tingling in right arm, imbalance. Arm pain resolved Cramping thumb resolved Non Profit Director improving Dexterity improving Not dropping things as much Balance is better, but not back to baseline Modified MARY score: 12 Motor dysfunction score of the upper extremities 4 Able to button shirt with slight difficulty Motor dysfunction score of the lower extremities 4 Able to walk up and/or down stairs with hand rail Sensory dysfunction score of the upper extremities 2 Mild sensory loss Sphincter dysfunction score 2 Mild to moderate difficulty with micturition Exam: 5/5 throughout No hoffmans Incision: c/d/i ASSESSMENT/PLAN In summary, Tammy Anna is a very pleasant 36 year old female with cervical myelopathy, now 6 weeks s/p C5/6 ACDF. She is doing very well post-op, with improvement in symptoms. Hopefully, she will have a durable benefit from surgery. Plan: S/p C5/6 ACDF: Okay to resume normal activities without restriction. Recommend slow up-titration of activity as tolerated. Continue to hold off on NSAIDs until next f/u Virtual f/u in 3 months with x-rays before appt Reyes Roy MD Associate Staff, Skull Base AND Spine Surgery Department of Neurological Surgery August 21, 2022 11:51 AM I spent a total of 20 minutes on the date of the service which included preparing to see the patient, [id number] patient care, completing clinical documentation, obtaining and/or reviewing separately obtained history, performing a medically appropriate examination, counseling and educating the patient/family/caregiver, ordering medications, tests, or procedures, and communicating with other HCPs (not separately reported). [facility] 08-21-2022 Instructions Reyes Roy MD - 08/21/2022 12:34 PM EDT Okay to resume normal activities without restriction. Recommend slow up-titration of activity as tolerated. Start with a 15 lbs weight limit for 1st week, then a 20 lbs weight limit for 2nd week, then 30 lbs weight limit for 3rd week, then no limit if tolerating well. I will see you back in 3 months for a virtual visit. Please get x-rays before the visit, they have been ordered. Thank you for allowing me to participate in your care. Please do not hesitate to call with questions. Reyes Roy MD documented in this encounter [facility] 08-21-2022 History of Presen t illness Narrative SPINE SURGERY FOLLOW UP This is an in-person visit. CC: Yovany Avery SERVICE DATE: 08/21/22 SURGERY DATE: 07/04/2022 Tammy Anna is seen for 6 week post operative follow up s/p C5/6 ACDF. Preop, had arm pain, right thumb cramping, worship director weakness, difficulty with dexterity, dropping things, and tingling in right arm, imbalance. Arm pain resolved Cramping thumb resolved Non Profit Director improving Dexterity improving Not dropping things as much Balance is better, but not back to baseline Modified MARY score: 12 Motor dysfunction score of the upper extremities 4 Able to button shirt with slight difficulty Motor dysfunction score of the lower extremities 4 Able to walk up and/or down stairs with hand rail Sensory dysfunction score of the upper extremities 2 Mild sensory loss Sphincter dysfunction score 2 Mild to moderate difficulty with micturition Exam: 5/5 throughout No hoffmans Incision: c/d/i ASSESSMENT/PLAN In summary, Tammy Anna is a very pleasant 36 year old female with cervical myelopathy, now 6 weeks s/p C5/6 ACDF. She is doing very well post-op, with improvement in symptoms. Hopefully, she will have a durable benefit from surgery. Plan: S/p C5/6 ACDF: Okay to resume normal activities without restriction. Recommend slow up-titration of activity as tolerated. Continue to hold off on NSAIDs until next f/u Virtual f/u in 3 months with x-rays before appt Reyes Roy MD Associate Staff, Skull Base & Spine Surgery Department of Neurological Surgery August 21, 2022 11:51 AM I spent a total of 20 minutes on the date of the service which included preparing to see the patient, [id number] patient care, completing clinical documentation, obtaining and/or reviewing separately obtained history, performing a medically appropriate examination, counseling and educating the patient/family/caregiver, ordering medications, tests, or procedures, and communicating with other HCPs (not separately reported). documented in this encounter [facility] 07-23-2022 Miscellaneous Notes SITUATION: only patient present during today's visit. patient reports the following since the last homecare visit: medications/allergies--no changes, no fall. patient reports doing great . But sometimes feels like something is stuck in her throat and going to see MD on 08/18/22 for follow up BACKGROUND: Diagnoses (reason for Home Care): Encounter for surgical aftercare following surgery on the nervous system SURGERY/PROCEDURE(S): 1. C5/6 ACDF wit h plating 2. Use of interbody structural autograft Weight Bearing/Precaution Changes: no lifting more then 5-10lbs ASSESSMENT: Focus of visit: finalize PT and D/C Physical therapy discharged: goals achieved. Functional performance at discharge - bed mobility independent, transfers independent, ambulation independent and stairs independent. Plan of care, goals, and discharge reviewed and agreed upon with patient and/or caregiver. RECOMMENDATION: Patient discharged from home health services. Instructions to include:home exercise program as directed See intervention summary for intervention/education details. documented in this encounter [facility] 07-22-2022 Miscellaneous Notes SITUATION: only patient present during today's visit. patient reports the following since the last homecare visit: medications/allergies--no changes, no fall. patient reports she had Dr castro today(virtual) and it went well. States she told them she has been riding bike and doing things outdoors more. States she is still having occasional difficulty w/ swallowing and they were going to put in order for speech therapy. BACKGROUND: Diagnoses (reason for Home Care): Encounter for surgical aftercare following surgery on the nervous system SURGERY/PROCEDURE(S): 1. C5/6 ACDF wit h plating 2. Use of interbody structural autograft Weight Bearing/Precaution Changes: no liftinh >10lbs ASSESSMENT: Focus of visit reviewed and performed standig LE strength and balance exercises. Patient has good understanding of HEP. Discussed the importance of not over doing it w/ daily activities for pain management and to cont w/ ice prn for soreness Plan of care, goals, and visit frequency reviewed and agreed upon with patient and/or caregiver. Current Discharge Plan: independent with home exercise program Anticipate discharge by 07/23/22 RECOMMENDATION: Next visit to focus on PT to see for DC See intervention summary for intervention/education details. documented in this encounter [facility] 07-22-2022 Miscellaneous Notes OT contacted Dr. Roy's office via [employer] on 07/22/22 for the following: Requested to cancel order for tub transfer bench, as patient no longer needs it. New orders: None Follow up needed: None SITUATION: Pt. in kitchen when OT arrived. Son let OT into the home. Daughter and son present during today's visit, but daughter did not participate in visit. Patient reports the following since the last homecare visit: medications/allergies--no changes, no fall. patient reports she is pleased with her progress. Pt. 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 She reports she asked about starting back with partial lifting restrictions. She states she is going to ask her doctor about this at her visit at the end of the month. BACKGROUND: Diagnoses or reason for Home Care: Encounter for surgical aftercare following surgery on the nervous system SURGERY/PROCEDURE(S): 1. C5/6 ACDF wit h plating 2. Use of interbody structural autograft ASSESSMENT: Focus of visit: Final review of tub/shower transfers; final instructions for safety & pacing herself throughout her recovery. Occupational therapy discharged: goals achieved. Functional Performance at discharge: Feeding independence, Grooming independence, Upper body dressing independence, Lower body dressing independence, Bathing independence, Toileting independence and Toilet Transferring independence with no devices, and Tub Transfers with no device with [place]. Plan of care, goals, and discharge reviewed and agreed upon with patient/caregiver. RECOMMENDATION: Instructions include: discharged from OT and is active with PT. Post dc recommendations: follow up with physician as scheduled 08/18/22. See intervention summary for intervention/education details. documented in this encounter [facility] 07-22-2022 Note HNO ID: [id number] Author: Carolina Hendricks RN Service: ? Author Type: Registered Nurse Type: Progress Notes Filed: 07/22/2022 10:10 AM Note Text: Patient is here today for a 2 week postop VV/ incision check. Surgery on 07/04/22, C5/[address] Roy. Patient is recovering well postoperatively. No neurological symptoms or complaints compared to preoperative baseline. Pt states her preop pain is resolving/resolved. BUE symptoms resolving. Non Profit Director issues resolved. Pt not requiring any pain medication. Pt does report having trouble swallowing since surgery, discussed this as normal postop d/t manipulation of tissue during surgery. Pt interested in ST for eval . Re-discussed postoperative activity and associated restrictions. Anterior neck surgical incision is well-approximated and healed. There are no signs or symptoms of infection. Pt denies any fevers, drainage, open areas. Pt does report feeling a small lump, superior and to left of incision. Per pt, tender to touch. Has not changed shape/size. No redness, swelling to area. Discussed could be postop seroma, inflammation,internal stitch, expected postop swelling, advised to ice area 20 minutes per hour during waking areas for inflammation. Will review with NSG team and update patient with any additional recommendations. Reviewed wound care with patient with good understanding and confirmed postoperative follow up appointment with Dr Roy on 08/18/22. Aware to phone office with any questions or concerns. RUBENS Briceno, RN [facility] 07-22-2022 History of Presen t illness Narrative Patient is here today for a 2 week postop VV/ incision check. Surgery on 07/04/22, C5/[address] Roy. Patient is recovering well postoperatively. No neurological symptoms or complaints compared to preoperative baseline. Pt states her preop pain is resolving/resolved. BUE symptoms resolving. Non Profit Director issues resolved. Pt not requiring any pain medication. Pt does report having trouble swallowing since surgery, discussed this as normal postop d/t manipulation of tissue during surgery. Pt interested in ST for eval . Re-discussed postoperative activity and associated restrictions. Anterior neck surgical incision is well-approximated and healed. There are no signs or symptoms of infection. Pt denies any fevers, drainage, open areas. Pt does report feeling a small lump, superior and to left of incision. Per pt, tender to touch. Has not changed shape/size. No redness, swelling to area. Discussed could be postop seroma, inflammation,internal stitch, expected postop swelling, advised to ice area 20 minutes per hour during waking areas for inflammation. Will review with NSG team and update patient with any additional recommendations. Reviewed wound care with patient with good understanding and confirmed postoperative follow up appointment with Dr Roy on 08/18/22. Aware to phone office with any questions or concerns. RUBENS Briceno, RN documented in this encounter [facility] 07-07-2022 Miscellaneous Notes SITUATION: only patient present during today's visit. patient reports Agreeable to home PT. BACKGROUND: Diagnoses (reason for Home Care): Encounter for surgical aftercare following surgery on the nervous system SURGERY/PROCEDURE(S): 1. C5/6 ACDF wit h plating 2. Use of interbody structural autograft Past Medical History: Atrial Paroxysmal Tachycardia (Hcc) Anxiety Attack Acute Back Pain With Sciatica, Right Cervicalgia Cervical Myelopathy (Hcc) Cervical Stenosis of Spine Current Smoker Gerd (Gastroesophageal Reflux Disease) Class 1 Obesity Due to Excess Calories Without Serious Comorbidity With Body Mass Index (Bmi) of 30.0 to 30.9 in Adult Post-Operative State Weight Bearing or Surgical Precautions: Cervical surgical precautions. Lifting is restricted to 5-10lbs for 2weeks May bathe and shower May shower 3-5days postop. No tub baths 3-4weeks postop. ASSESSMENT: Patient evaluated by [facility] physical therapy. Reviewed and explained homecare services. Plan of care, goals, and visit frequency developed, reviewed, and agreed upon with patient and/or caregiver. Spoke with Sarahy CROTES from Dr Roy's office about appears to be a clear plastic dressing over incision. Instructed that this was surgical glue and this would flake off on its own. Patient Goal: Wants return to work and functional independence. Patient will benefit from continued physical therapy to address the following deficits: strength, balance, gait, endurance, transfers, stair negotiation, aerobic capacity and bed mobility. Current Discharge Plan: independent with home exercise program. Anticipate discharge by 07/26/22. RECOMMENDATION: Next visit to focus on Working toward achieving goals of independence with gait, bed mobility, transfers and understanding and performance of HEP. Agreeable to PT and OT; declining n/a. See intervention summary for intervention/education details.n/a documented in this encounter [facility] 07-05-2022 Note HNO ID: [id number] Author: Kelle Olivares, RN Service: Care Management Author Type: Registered Nurse Type: Care Mgt Progress Note Filed: 07/05/2022 12:31 PM Note Text: CARE MANAGEMENT DISCHARGE NOTE SERVICE DATE: July 05, 2022 SERVICE TIME: 12:30 PM Admission Date: 07/04/2022 LOS: 1 day Discharge Arrangement Discharge Arrangement: Home with Home Health Caregiver Assessment Caregiver is ready, willing and able to meet the patient's needs as recommended by the inter-professional team: Yes Name of Caregiver: spouse, Fabiola. Transportation Arrangements Transportation Arrangements: Car Handoff Communication: Handoff to: (bedside nurse) Additional Information: Patient ready to discharge home with home OT, [facility] accepting. F2F/home care orders in. Family to transport home. SIGNATURE: Kelle Olivares RN PATIENT NAME: Tammy Anna DATE: July 05, 2022 TIME: 12:30 PM CONTACT #: [phone] [facility] 07-05-2022 Note HNO ID: [id number] Author: Valdemar Nelson MD Service: General Internal Medicine Author Type: Physician Type: Progress Notes Filed: 07/05/2022 12:02 PM Note Text: PROGRESS NOTE - INTERNAL MEDICINE PATIENT NAME: Tammy Anna SERVICE DATE: 07/05/2022 SERVICE TIME: 12:00 PM ADMITTING PHYSICIAN: Reyes Roy MD ASSESSMENT AND PLAN S/p C5-6 ACDF with plating 07/04/2022 Obesity OLGA High wbc --> no fever, no leg tenderness possible atelactasis --> adv IS SUBJECTIVE In no acute distress INTERVAL HISTORY No chest pain or sob or nausea or vomiting or symptoms. OBJECTIVE PHYSICAL EXAM: Patient Vitals for the past 24 hrs: BP Temp Temp src Pulse Resp SpO2 Height Weight 07/05/22 0729 124/78 36.9 ?C (98.4 ?F) Oral 67 18 100 % -- -- 07/05/22 0036 96/60 36.7 ?C (98.1 ?F) Oral 66 18 98 % -- -- 07/04/22 2101 114/59 36.7 ?C (98.1 ?F) Oral 71 16 98 % -- -- 07/04/22 1637 109/63 36.6 ?C (97.9 ?F) Oral 75 18 100 % -- -- 07/04/22 1314 -- -- -- -- -- -- 175.3 cm (5' 9 ) 94.8 kg (209 lb) Body mass index is 30.86 kg/m?. NEUROLOGICAL: No abnormal movements, no changes from before HEENT: Head atraumatic, perrl,eomi, no oral lesions, no ear rash NECK: Supple, no ln, jvp flat, thyroid palp HEART: S1, S2, no added sound LUNGS: dec a/e EXTREMITIES: no edema ABDOMEN: Soft, nontender, bowel sound positive, no organomegaly SKIN: No change EYES: No changes, perrl, eomi, ENT: No change JOINT: No change DATA: Diagnostic tests reviewed for today's visit: Most recent labs Most recent imaging Consults notes reviewed Current Facility-Administered Medications Medication Dose Route Frequency gabapentin 300 mg cap(s) (NEURONTIN) 300 mg ORAL TID heparin 5,000 Units injection 5,000 Units SUBCUTANEOUS q 12 H morphine 1 mg injection 1 mg INTRAVENOUS q 2 H PRN oxyCODONE IR 5-10 mg tab(s) (ROXICODONE) 5-10 mg ORAL q 6 H PRN acetaminophen 1,000 mg tab(s) (TYLENOL) 1,000 mg ORAL TID ondansetron 4 mg tab(s) (ZOFRAN) 4 mg ORAL q 6 H PRN Or ondansetron (PF) 4 mg injection (ZOFRAN) 4 mg INTRAVENOUS q 6 H PRN docusate sodium 100 mg cap(s) (COLACE) 100 mg ORAL BID polyethylene glycol 3350 17 g packet 17 g ORAL DAILY PRN methocarbamol 750 mg tab(s) (ROBAXIN) 750 mg ORAL QID PRN pantoprazole DR 40 mg tab(s) (PROTONIX) 40 mg ORAL DAILY (6 AM) No intake or output data in the 24 hours ending 07/05/22 1200 SIGNATURE: Valdemar Nelson MD DATE: July 05, 2022 TIME: 12:00 PM [facility] 07-05-2022 Note HNO ID: [id number] Author: Wilmer Choi PA-C Service: Neurosurgery Author Type: Physician Back End Architect Type: Progress Notes Filed: 07/05/2022 11:10 AM Note Text: Please page the Neurosurgery group pager [phone] for any questions or concerns Patient is a 36 year old female presenting on POD #1, S/P C5/[address] Roy. Patient doing well today. States that her pain is under good control. Denies any new numbness or tingling. Patient has no other acute complaints or concerns at this time. Physical Exam: General: Awake, alert and in no acute distress. Patient is pleasant and cooperative Motor: UE BICEPS TRICEPS DELTS Wrist Ext Wrist Flex Non Profit Director R 5/5 5/5 5/5 5/5 5/5 5/5 L 5/5 5/5 5/5 5/5 5/5 5/5 LE Hip Flex Knee Flex Knee Extend Plantarflex Dorsiflex R 5/5 5/5 5/5 5/5 5/5 L 5/5 5/5 5/5 5/5 5/5 Neuro: Sensation to light touch intact of B/L upper and lower extremities Wound: Appropriate post operative wound located in anterior neck . Incision appears well approximated with monocryl and glue. No signs of erythema, fluctuance, blood/mucoid discharge, wound appears CDI. Assessment/Plan: Patient is a 36 year old woman presenting POD1 s/p C5/[address] Roy - Patient doing very well - PT/OT recommend home PT - Continue current pain medications - Medicine following for chronic conditions - IPC's and ambulation for DVT prophylaxis - Incentive Spirometry - Plan for DC later today - Plan of care discussed with patient and nursing staff Wilmer Choi PA-C Please page the Neurosurgery group pager [phone] for any questions or concerns [facility] 07-05-2022 Note HNO ID: [id number] Author: Interface Note Service: ? Author Type: ? Type: Progress Notes Filed: 07/05/2022 2:14 AM Note Text: Epic Scheduled Downtime: 07/05/2022 1:02:00 AM to 07/05/2022 2:01:00 AM [facility] 07-04-2022 Note HNO ID: [id number] Author: Monica Baker APRN.MANAGER CIVIL Service: Anesthesiology Author Type: Nurse Formal Service Waiter Type: Anesthesia Procedure Notes Filed: 07/04/2022 8:09 AM Note Text: ANESTHESIOLOGY PROCEDURE NOTE PIV General Information Procedure Start Time/Medication Administration: 07/04/2022 7:45 AM Patient Location: OR Staffing MANAGER CIVIL: Monica Baker APRN.MANAGER CIVIL Preparation Sterility Preparation: hand hygiene performed prior to procedure, mask used Site Prep: alcohol Procedure Details Indication: need for IV access Needle Size/Type: 20 gauge angiocath Orientation: Right Location: Hand Imaging Guidance Used: No SIGNATURE: Monica Baker APRN.CRNA PATIENT NAME: Tammy Anna DATE: July 04, 2022 TIME: 8:08 AM CSN: [id number] [facility] 07-04-2022 Note HNO ID: [id number] Author: Monica Baker APRN.MANAGER CIVIL Service: Anesthesiology Author Type: Nurse Formal Service Waiter Type: Anesthesia Procedure Notes Filed: 07/04/2022 8:07 AM Note Text: ANESTHESIOLOGY PROCEDURE NOTE Airway General Information Procedure Start Time/Medication Administration: 07/04/2022 7:40 AM Patient location during procedure: OR Timeout Performed Pre-procedure: timeout performed Consent Obtained: Yes 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 Staffing MANAGER CIVIL: Monica Baker APRN.MANAGER CIVIL Indications and Patient Condition Indications for airway management: anesthesia Preoxygenated: yes anesthesia circuit Patient position: sniffing Method: asleep Cricoid Pressure: No Manual In-Line Stabilization: No Difficult Mask: No Final Airway Details Final airway type: endotracheal airway Final Endotracheal Airway: ETT Successful intubation technique: video laryngoscopy Devices used: Glidescope Endotracheal tube insertion site: oral ETT size (mm): 7.5 Measured from: lips Measurement (cm): 22 Placement verified by: chest auscultation and capnometry Cormack-Lehane Classification: grade I - full view of glottis Number of attempts at approach: 1 Airway not difficult SIGNATURE: Monica Baker APRN.CRNA PATIENT NAME: Tammy Anna DATE: July 04, 2022 TIME: 8:07 AM CSN: [id number] [facility] 07-03-2022 Miscellaneous Notes NEUROSURGERY CARE COORDINATION [facility] PRE-OP EDUCATION PHONE CALL ? Spoke with patient Tammy Anna for pre-op education. Reviewed education materials verbally with patient, including pre-operative skin preparation, medications, NPO, DOS expectations, visitor policy, inpatient expectations, wound care, post-operative pain management. ? Provided the following education materials to patient: [facility] Spine Surgery [facility] Pre-/Post-Op Instruction packet, NPO/Skin Prep Instructions, Advance Directives info, Pain Management After Spine Surgery, Preparing for Post-Acute Care Instructions : Yes. ? Reviewed with patient to report to Pre/Post op services day of surgery: Yes. ? Reviewed with patient [facility] Surgery Pre-Op will call patient after 2 pm the day before to get surgery report time for day of surgery. Provided Pre-Op front end software developer phone number of [phone] for any questions: Yes. ? Patient made aware to eat nothing after midnight prior to surgery: Yes. ? Patient aware surgery anticipated to be INPATIENT. ? Discussed anticipated care post discharge: Self care, Home Health Care ( PT-OT-nurse), and acute rehab. ? Does patient have transportation to and from surgery? Yes. ? Questions answered and patient verbalized understanding via teach back. ? Additional Comments: Post-op Support/Assistance upon discharge after surgery (family member, SNF, Rehab etc.): Carolina Soliz RN July 03, 2022 1:39 PM documented in this encounter [facility] 06-26-2022 Miscellaneous Notes Type of form: FMLA Form received via email When form is completed, email back to patient's employer Form has been forwarded to Physician Desk: Dr. Manuela Mcdonnell PSS documented in this encounter [facility] 06-10-2022 Note HNO ID: [id number] Author: RT Wilma(R) Service: ? Author Type: Special Education Classroom Aide Type: Progress Notes Filed: 06/10/2022 12:31 PM Note Text: Radiology Service Progress Note PATIENT NAME: Tammy Anna DATE OF SERVICE: June 10, 2022 TIME: 12:31 PM PATIENT IDENTITY VERIFICATION COMPLETED USING TWO (2) IDENTIFIERS: Name and Date of confirmed by patient verbally. FALL SCREENING: Has the patient had 2 falls in the last year or 1 fall with injury or currently using an Ambulatory Assistive Device (Walker, Cane, Wheelchair, Crutches, etc.)? No PATIENT GENDER DATA: Female. status: : No status: NO. PATIENT RELEVANT IMPLANT DATA REVIEWED: Yes RADIOLOGY DEPARTMENT: CT; Exam(s) Completed: Spine PERIPHERAL IV DATA: Not applicable SIGNED BY: RT Tiarra(R) June 10, 2022 12:31 PM [facility] 06-10-2022 History of Presen t illness Narrative Radiology Service Progress Note PATIENT NAME: Tammy Anna DATE OF SERVICE: June 10, 2022 TIME: 12:31 PM PATIENT IDENTITY VERIFICATION COMPLETED USING TWO (2) IDENTIFIERS: Name and Date of confirmed by patient verbally. FALL SCREENING: Has the patient had 2 falls in the last year or 1 fall with injury or currently using an Ambulatory Assistive Device (Walker, Cane, Wheelchair, Crutches, etc.)? No PATIENT GENDER DATA: Female. status: : No status: NO. PATIENT RELEVANT IMPLANT DATA REVIEWED: Yes RADIOLOGY DEPARTMENT: CT; Exam(s) Completed: Spine PERIPHERAL IV DATA: Not applicable SIGNED BY: RT Tiarra(R) June 10, 2022 12:31 PM documented in this encounter [facility] 06-06-2022 Miscellaneous Notes Spoke with patient. She states her symptoms have been progressing. Today she has had two occasions with shocks through the body. Just recently she stood up from picking up her keys and felt sharp pain through her chest, the spine and into both arms. [place] like an electrical shock. The pain and numbness in the left arm continued longer and she still has some mild numbness in left 3-5 digits. Generalized weakness. 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 Feels this is a little worse than normal. Slight worsening of balance. Gabapentin 300mg TID - fatigued. Will send message to spine surgery Dr. Roy to update. She is scheduled for surgery 07/04. Advised to be seen at [facility] for intractable pain, increased weakness/dexterity/balance difficulty. Yovany Avery PA-C Patient called, stated at last appointment, Yovany had said if her pain persists to go to the ER, patient is wondering what the provider meant by that. She is experiencing pain and an electric feeling to where it goes down her back, and through both arms. Patient is requesting a call back. Please advise. documented in this encounter [facility] 06-04-2022 History and physical note HISTORY AND PHYSICAL EXAMINATION SERVICE DATE: 06/04/2022 SERVICE TIME: 7:47 AM PRIMARY CARE PHYSICIAN: Tonya Arriaga CNP REASON FOR VISIT: Tammy Anna is a 36 year old female who is scheduled for Procedure(s): ARTHRODESIS ANT DISC PREP DISCECTOMY OSTEOPHYTECTOMY DECOMPRES S CORD/NERVE ROOT C' BELOW C2 (N/A) INSERT SPINE FIXATION DEVICE ADDITIONAL PROCEDURE, 2-3 VERTEBRAL SEGMENTS (N/A) MICROSURGICAL TECHNIQUE FOR SPINAL PROCEDURES (N/A) at the request of Dr. Reyes Roy for consultation. My final recommendation will be communicated back to the requesting physician by way of shared medical record or letter. Subjective The patient has the following: ACTIVE PROBLEM LIST Atrial Paroxysmal Tachycardia (Hcc) Anxiety Attack Acute Back Pain With Sciatica, Right Cervicalgia Cervical Myelopathy (Hcc) Cervical Stenosis of Spine Current Smoker Gerd (Gastroesophageal Reflux Disease) Class 1 Obesity Due to Excess Calories Without Serious Comorbidity With Body Mass Index (Bmi) of 30.0 to 30.9 in Adult COVID-19 Immunization Status Overdue - COVID-19 VACCINE (1) Overdue - never done No completion, postpone, frequency change, or communication history exists for this topic. CHIEF COMPLAINT: Pre-op exam HPI: Tammy Anna is a 36 year old seen for PAC due to scheduled above surgery because of cervical myelopathy. 06/02/2022, Dr. Roy SUBJECTIVE Tammy Anna is a 36 year old female presenting alone. 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 Difficulty with zippers, buttons, small objects. Drops things. Worsening past few months. Coughs and gets tingling throughout right arm and left arm starting as well. Poor balance. Smokes 1/3 ppd cigarettes Modified MARY score: 11 Motor dysfunction score of the upper extremities 3 Able to button shirt with great difficulty Motor dysfunction score of the lower extremities 4 Able to walk up and/or down stairs with hand rail Sensory dysfunction score of the upper extremities 2 Mild sensory loss Sphincter dysfunction score 2 Mild to moderate difficulty with micturition (occ dribbling) REVIEW OF SYSTEMS: General: No weight loss, malaise or fevers. Neurological: No history of TIA's, stroke, TIMING MACHINE OPERATOR tumor, impaired sensorium, hemiplegia, paraplegia or quadraplegia. No neurological symptoms or problems. Respiratory: Positive for: tobacco use (0.25ppd). Negative for: asthma, COPD, pneumonia within 6 weeks, URI < 2 weeks and obstructive sleep apnea. Cardiovascular: No history of HTN requiring medication, no history of angina, CHF, SC, cardiac surgery or stents. Denies rest pain, gangrene or revascularization/amputation for PVD. No history of cardiovascular symptoms or problems. GI: Positive for: dysphagia and GERD (on rx) Negative for: abdominal pain, hepatitis, irritable bowel syndrome, inflammatory bowel disease, liver disease, nausea, pancreatitis, vomiting and ETOH >2 drinks/day. : No history of dysuria, frequency or incontinence, stones or chronic kidney disease. No difficulty urinating, nocturia > 1 time per night or hematuria. COOK RELIEF: Negative for abnormal vaginal bleeding, abnormal vaginal discharge. Endocrine: No history of diabetes. Has not taken steroids within the past 30 days. No history of endocrinological symptoms or problems. Hematology: No history of bleeding or clotting disorder. Patient is not taking anti-coagulation or platelet medications. No history of hematological symptoms or problems. Oncology: No history of CA metastasis, chemo within 30 days, or radiotherapy within 90 days. No history of oncological symptoms or problems. Psych: Positive for: anxiety. Musculoskeletal: See HPI. Positive for: back pain and joint pain. Skin: Negative for lesions, rash and itching. PAST MEDICAL HISTORY Diagnosis Date Cervical disc disease Generalized anxiety disorder PAST SURGICAL HISTORY Procedure Laterality Date COLONOSCOPY 05/23/2021 EGD 05/23/2021 FAMILY HISTORY Problem Relation Age of Onset No Ocular Disease No Family History Social History Tobacco Use Smoking status: Every Day Packs/day: 1.00 Years: 23.00 Pack years: 23.00 Types: Cigarettes Smokeless tobacco: Never Vaping Use Vaping Use: Some days Substance Use Topics Alcohol use: Yes Comment: occasionally Drug use: Yes Types: Marijuana Comment: medical card Prior to Admission medications as of 06/04/22 1529 Medication Sig Last Dose Taking gabapentin (NEURONTIN) 300 mg capsule Take 1 capsule by mouth three times daily for 30 days. Taking Yes loratadine (CLARITIN) 10 mg tablet Take 10 mg by mouth once daily. Taking Yes omeprazole (PRILOSEC) 40 mg capsule Take 1 capsule by mouth once daily. Yes No medication comments found. ALLERGIES Allergen Reactions Penicillins Anaphylaxis Objective PHYSICAL EXAM: General: alert and oriented (x3) and healthy appearance. Pertinent negatives noted - not distressed. Skin: normal color, no rash or lesions. HEENT: EOM intact and pupils equal round. Pertinent negatives noted - no carotid bruit. Cardiovascular: regular rate and rhythm, normal S1 and S2, no rub, murmurs, or gallop. Respiratory: normal breath sounds, no wheezes or crackles. No chest wall deformity or tenderness. Abdomen: soft. Pertinent negatives noted - not tender. Extremities: no deformity, no edema or tenderness, no joint swelling or clubbing. Neurological: normal cognition and motor skills. Gait normal. No weakness or sensory deficit. PAIN ASSESSMENT: Pain Pain Level: 9 Pain Location: Back (neck) Description: Aching, Burning, Cramping Duration Amount of Time: 1 Duration Units: Years Frequency: Continuous Intervention/Comfort measure: Medication VITALS: BP 120/84 Pulse 85 Temp (Src) 99.7 (Temporal) Resp 16 Ht 5' 9 (1.75m) Wt 209 lb (94.8kg) SpO2 94% LMP 05/19/2021 BMI 30.85 kg/(m^2). Diagnostic tests reviewed for today's visit: Lab Value Units Date High Low HB 14.0 g/dL 06/04/2022 15.5 11.5 HCT 39.8 % 06/04/2022 46.0 36.0 WBC 5.25 k/uL 06/04/2022 11.00 3.70 PLT 151 k/uL 06/04/2022 400 150 NA 138 mmol/L 06/04/2022 144 136 K 3.9 mmol/L 06/04/2022 5.1 3.7 GLUC 113 mg/dL 06/04/2022 99 74 BUN 11 mg/dL 06/04/2022 21 7 CREAT 0.66 mg/dL 06/04/2022 0.96 0.58 PTSEC 9.9 sec 06/04/2022 <13.1 INR 1.0 no uni* 06/04/2022 1.3 0.9 APTT 23.2 sec 06/04/2022 32.4 23.0 ALT 26 U/L 03/17/2022 38 7 AST No results within date range. TBILI No results within date range. TSH No results within date range. Lab Value Units Date High Low HCGQT No results within date range. UHCG No results within date range. HCG, BODY* No results within date range. Lab Value Units Date High Low ABORHD No results within date range. ABSCREEN No results within date range. Hemoglobin A1C (%) Date Value 06/04/2022 5.1 Recent Results (from the past 8760 hour(s)) ECG COMPLETE Collection Time: 06/04/22 3:36 PM Result Value Ventricular Rate 75 Atrial Rate 75 P-R Interval 134 QRS Duration 82 QT Interval 370 QTC Calculation (Bazett) 413 Calculated P Lismore 15 Calculated R Lismore 48 Calculated T Lismore 14 Impression NORMAL SINUS RHYTHM NORMAL ECG No results found for this or any previous visit (from the past 99383 hour(s)). Assessment Patient has the following medical conditions which may affect sharri-operative course: Atrial paroxysmal tachycardia (HCC) Assessment: hx, no tx, HR in the 80's today Anxiety attack Assessment: hx states uses medical marijuana for anxiety, instructed to withhold prior to surgery, pt verbalized understanding. Current smoker Assessment: 1ppd/23 years, attempting to quit recently for surgery down to 0.25ppd GERD (gastroesophageal reflux disease) Assessment: controlled on rx Class 1 obesity due to excess calories without serious comorbidity with body mass index (BMI) of 30.0 to 30.9 in adult Assessment: Body mass index is 30.86 kg/m . Bermudez Activity Status Index: METS: Climb a flight of stairs or walk up a hill (5.50 METs) DASI Score: 5.5 Patient denies any chest pain or undue shortness of breath with the above physical activity. Clinical Frailty Scale: 2. Well STOP-Bang Score: Denies snoring loudly Denies feeling tired, fatigued, or sleepy during the daytime Has not been observed to stop breathing or choking/gasping during sleep Denies having high blood pressure BMI less than or equal to 35 kg/m^2 Patient 50 years old or younger Does not have a large neck Non-male patient STOP-Bang Score: 0 [id number] Score: Age: <65 Sex: female CHF history: No Hypertension history: No Vascular disease history: No Diabetes history: No [id number] Score: 1 ARISCAT Score: Age: <=50 Preoperative SpO2: <=90% Respiratory infection in the last month: No Preoperative anemia: Yes Surgical incision: peripheral Duration of surgery: 2-3 hrs Emergency procedure: No ARISCAT Score: 51 ASA Class: 2 ANESTHESIA FINDINGS: Intubation History: No history of difficult intubation Significant Anesthesia Considerations: none Airway History: No history of difficult airway I - PHYSICAL EVALUATION AIRWAY Patient intubated: No. Tracheostomy tube not present Mallampati: II. TM distance: >3 FB. Neck ROM: parasthesia with flexion and extension. Mouth opening: adequate. Short neck: no. Thick neck: no Barfield present: no Lip Bite Test: I Microretrognathia/Micronagthia/R ecessed Chin: No DENTAL Dental findings: teeth intact. II - ANESTHESIA PLAN ASA Score: 2 Anesthetic Plan: other Anesthetic plan additional comments: *PACC/TCI - anesthesia choice. Beta Rubén Monitoring Plan Post Procedure Analgesic Plan Informed Consent Anesthetic risks, benefits, alternatives, personnel and consent discussed: yes. Patient / Responsible Constitution Party agrees to proceed: yes Patient / Surrogate agrees to blood products: Yes Discussed the possibility of lip / dental damage: yes Prepared for Surgery: optimally prepared for surgery, pending [see comment]. Labs, EKG CONSULTS: Patient does not require consults for optimization at this time Planned Anesthetic: other anesthesia choice The Following Tests/Procedures Have Been Initiated: Orders Placed This Encounter ECG COMPLETE Standing Status: Future Number of Occurrences: 1 Standing Expiration Date: 06/05/2023 Instructions Given to Patient: Instructions located in the after visit summary. Patient given verbal and written preop instructions and voices comprehension and compliance. SIGNATURE: Lianet Restrepo APRN.CNP PATIENT NAME: Tammy Anna DATE: June 04, 2022 TIME: 3:18 PM PAGER/CONTACT #: documented in this encounter [facility] 06-04-2022 Instructions Lianet Restrepo APRN.CNP - 06/04/2022 3:18 PM EDT PATIENT PREOPERATIVE INSTRUCTIONS Reyes Roy MD has scheduled you for your procedure at this surgery center: [facility]: [phone] -- [address] [address]. Please read below carefully for your personalized instructions. Dietary Restrictions: - No solid food after midnight. - You may have 12 ounces of clear liquids (water, clear juices such as apple juice or gatorade, carbonated beverages, clear tea, black coffee, jello) until 2 hours before scheduled arrival at facility. No red/purple coloring and no creamer/sugar Medications: Unless instructed differently below, stay on all of your medications until your surgery. Approved medications to take the morning of surgery with a sip of water: All rx meds are okay If you start any new medications after today's visit, please contact the surgeon's office. Blood Thinning Medications: - Stop NSAIDS (Ibuprofen, Advil, Aleve, Motrin, Celebrex, Mobic, etc.) 7 days before surgery, as directed by your surgeon. - Stop Aspirin 7 days before surgery, as directed by your surgeon. - Stop Vitamin E, ALL multi-vitamins, herbals and dietary supplements 7 days before surgery. - You may take Tylenol (Acetaminophen) or any of your pain medications that do not contain aspirin or NSAIDS as needed. Important Reminders: - Candy, mints, and tobacco products are NOT permitted the morning of surgery. - Hearing aids, dentures and glasses may be worn the morning of surgery. - NO jewelry, body piercings, makeup, hairpins or contacts are to be worn the day of surgery. If you develop symptoms such as a fever, cold, or flu, or have other changes to your health within TWO DAYS of scheduled surgery or the morning of surgery, please contact the surgery center above. Personal Belongings: -Please have photo ID and insurance cards. -If you do not have a copy of advance directives on file with us, please bring a copy with you on the day of surgery. - Leave ALL valuables and money at home or with family members. For Outpatient Procedures: - YOU MUST HAVE A RESPONSIBLE CUSTOMER OPERATIONS ASSOCIATE TAKE YOU HOME. A DEPARTMENT HELPER OR SECOND SHIFT SUPERVISOR CANNOT BE MADE A RESPONSIBLE CUSTOMER OPERATIONS ASSOCIATE. - We recommend that a responsible person stays with you overnight to take care of you. - You cannot stay in a hotel alone after outpatient surgery. You will not be permitted to have your surgery, if you do not have someone to take care of you. Arrival Time for Surgery: -You will receive a call from [facility] the afternoon before surgery after 2:30 pm (or Thursday for Thursday surgery) for a scheduled arrival time. - If you have not heard by 4 pm, please contact [facility] at [phone]. Please be aware that emergency situations arise, which may delay or change your surgical time. If this happens, we will notify you as soon as possible and regret any inconvenience. If you already have an Advance Directive, please fax a copy to [phone] or email to for it to be added to your chart. If you do not have an Advance Directive, you can find the appropriate form and more information at [email or web address]. We recommend that you complete the Advance Directive form found on the website and bring it with you the day of your surgery. It can be witnessed and scanned into your chart that day. Lianet Restrepo APRN.CNP documented in this encounter [facility] 06-03-2022 Miscellaneous Notes NI PHONE Name of caller : Tammy Relationship to patient : Self If not self Will need patient permission to release results or disclose health information with called documented in fy. Was permission obtained from patient ? Yes Patient identified by Name and Date of . ( Tammy Anna, 1985). Yes Reason for Call : I have scheduled Tammy for her 2 week virtual post op and her 6 week post op. Her PACC was already scheduled. Number to return call [phone] Okay to leave a message ? Yes Thank you calling [facility] [place]. You will receive a return call within 48 hours ( or 2 business days if close to the weekend). If you feel that this is an urgent issue and needs immediate attention, it is recommended that you contact your primary care provider office or proceed to your nearest Urgent Care Center of Emergency Room ED for evaluation/treatment. documented in this encounter [facility] 06-03-2022 Miscellaneous Notes NEUROSURGERY CARE COORDINATION [facility] SURGERY SCHEDULING ? Patient Tammy Anna accepts surgery date of 07/04/[address] Roy. Planned procedure is C5/6 ACDF. ? PAT will be completed at [facility]. ? Medications reviewed: Yes. Medications to be stopped prior to surgery: other : N/A. ? Additional pre-op clearances needed: per [facility] provider recommendations. ? Any implanted devices: No. ? Transplant History No ? Patient will require optimization lab work: per [facility] provider recommendations ? Questions answered. Patient verbalizes understanding via teach back. Carolina Soliz RN June 03, 2022 9:58 AM documented in this encounter [facility] 06-02-2022 Note HNO ID: [id number] Author: Reyes Roy MD Service: ? Author Type: Physician Type: Progress Notes Filed: 06/02/2022 3:46 PM Note Text: SPINE SURGERY OUTPATIENT CONSULT This is an in-person visit. SERVICE DATE: 06/02/2022 PCP: Tonya Arriaga CNP REFERRING PROVIDER: Yovany Avery [address] [facility] [address] Consult requested for an opinion regarding the evaluation and treatment of cervical disc herniation. My final impression and recommendations will be communicated back to the requesting physician by way of the shared medical record or letter via [place] mail. SUBJECTIVE Tammy Anna is a 36 year old female presenting alone. 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 Difficulty with zippers, buttons, small objects. Drops things. Worsening past few months. Coughs and gets tingling throughout right arm and left arm starting as well. Poor balance. Smokes 1/3 ppd cigarettes Modified MARY score: 11 Motor dysfunction score of the upper extremities 3 Able to button shirt with great difficulty Motor dysfunction score of the lower extremities 4 Able to walk up and/or down stairs with hand rail Sensory dysfunction score of the upper extremities 2 Mild sensory loss Sphincter dysfunction score 2 Mild to moderate difficulty with micturition (occ dribbling) ACTIVE PROBLEM LIST Atrial Paroxysmal Tachycardia (Hcc) Anxiety Attack Acute Back Pain With Sciatica, Right Cervicalgia Cervical Myelopathy (Hcc) Cervical Stenosis of Spine PAST MEDICAL HISTORY Diagnosis Date Cervical disc disease Generalized anxiety disorder PAST SURGICAL HISTORY Procedure Laterality Date COLONOSCOPY 05/23/2021 EGD 05/23/2021 FAMILY HISTORY Problem Relation Age of Onset No Ocular Disease No Family History Social History Tobacco Use Smoking status: Every Day Packs/day: 1.00 Years: 23.00 Pack years: 23.00 Types: Cigarettes Smokeless tobacco: Never Substance Use Topics Alcohol use: Yes Drug use: Yes Comment: medical card ALLERGIES Allergen Reactions Penicillins Anaphylaxis MEDICATIONS: loratadine (CLARITIN) 10 mg tablet Take 10 mg by mouth once daily. gabapentin (NEURONTIN) 300 mg capsule Take 1 capsule by mouth three times daily for 30 days. omeprazole (PRILOSEC) 40 mg capsule Take 1 capsule by mouth once daily. Patient Entered Questionnaires Spine Questions 05/25/2022 06/02/2022 Pain Location: Upper back/torso Upper back/torso Pain Duration: More than 5 years - Pain over last 6 months: Every day or nearly every day in the past 6 months - Symptoms from neck/cervical spine: Yes Yes Employment Status: Working now - Involved in law suit/legal claim: No - Spine Red Flags 05/25/2022 Any type of cancer: No Unexplained fever: Yes Bowel or bladder disfunction: Yes Unintentional weight loss: No Osteoporosis: No Neck Questionnaires 05/25/2022 Benzel Modified MARY Score Incomplete PROMIS Score Percentiles Physical Health 05/25/2022 Physical Function Percentile 12 Sleep Percentile 27* Fatigue Percentile 0 Pain Interference Percentile 8 PROMIS SOCIAL ROLE SCORE 05/25/2022 Social Role Satisfaction Percentile 31 PROMIS Global Health Scale 05/25/2022 Physical Health Percentile 2 Mental Health Percentile 43 Percentiles provide an indication of how the patient's score ranks in relation to the general population. Higher percentile rankings indicate better function/quality of life. 50th percentile is the average of the general population and indicates half of respondents had a worse score. Depression Screening: PHQ-9 05/25/2022 Score 8 PHQ-9 Self-harm Question 05/25/2022 Thoughts that you would be better off , or of hurting yourself in some way 0 PHQ-9 Self-Harm (Item 9) response options: 0 Not at all 1 Several days 2 More than half the days 3 Nearly every day PHQ-9 Levels: 0-4 No to mild depression 5-9 Mild depression 10-14 Moderate depression 15-19 Moderately severe depression 20-27 Severe depression OBJECTIVE: PHYSICAL EXAM BP 138/86 Pulse 84 LMP 05/19/2021 MOTOR: 5/5 BUE/BLE except RLE pain limited 4/5 SENSORY: Normal sensory exam GAIT: unable to do tandem gait REFLEXES: 2+ BUE/BLE LONG TRACT SIGNS: no hoffmans L'HERMITTES SIGN: Negative SPURLING'S TEST: Negative. DATA REVIEW Imaging and outside records independently reviewed and findings are as follows MRI shows right eccentric C5/6 disc herniation with cord compression ASSESSMENT/PLAN (G95.9) Cervical myelopathy (HCC) (primary encounter diagnosis) (M48.02) Cervical stenosis of spine In summary, Tammy Anna is a very pleasant 36 year old female with gait imbalance and progressive UE tingling and dexterity issues. We reviewed the imaging together, and I believe this patient has cervical stenosis with resultan (more content not included)... [facility] 06-02-2022 History of Presen t illness Narrative SPINE SURGERY OUTPATIENT CONSULT This is an in-person visit. SERVICE DATE: 06/02/2022 PCP: Tonya Arriaga CNP REFERRING PROVIDER: Yovany Avery [address] [facility] [address] Consult requested for an opinion regarding the evaluation and treatment of cervical disc herniation. My final impression and recommendations will be communicated back to the requesting physician by way of the shared medical record or letter via [place] mail. SUBJECTIVE Tammy Anna is a 36 year old female presenting alone. 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 Difficulty with zippers, buttons, small objects. Drops things. Worsening past few months. Coughs and gets tingling throughout right arm and left arm starting as well. Poor balance. Smokes 1/3 ppd cigarettes Modified MARY score: 11 Motor dysfunction score of the upper extremities 3 Able to button shirt with great difficulty Motor dysfunction score of the lower extremities 4 Able to walk up and/or down stairs with hand rail Sensory dysfunction score of the upper extremities 2 Mild sensory loss Sphincter dysfunction score 2 Mild to moderate difficulty with micturition (occ dribbling) ACTIVE PROBLEM LIST Atrial Paroxysmal Tachycardia (Hcc) Anxiety Attack Acute Back Pain With Sciatica, Right Cervicalgia Cervical Myelopathy (Hcc) Cervical Stenosis of Spine PAST MEDICAL HISTORY Diagnosis Date Cervical disc disease Generalized anxiety disorder PAST SURGICAL HISTORY Procedure Laterality Date COLONOSCOPY 05/23/2021 EGD 05/23/2021 FAMILY HISTORY Problem Relation Age of Onset No Ocular Disease No Family History Social History Tobacco Use Smoking status: Every Day Packs/day: 1.00 Years: 23.00 Pack years: 23.00 Types: Cigarettes Smokeless tobacco: Never Substance Use Topics Alcohol use: Yes Drug use: Yes Comment: medical card ALLERGIES Allergen Reactions Penicillins Anaphylaxis MEDICATIONS: loratadine (CLARITIN) 10 mg tablet Take 10 mg by mouth once daily. gabapentin (NEURONTIN) 300 mg capsule Take 1 capsule by mouth three times daily for 30 days. omeprazole (PRILOSEC) 40 mg capsule Take 1 capsule by mouth once daily. Patient Entered Questionnaires Spine Questions 05/25/2022 06/02/2022 Pain Location: Upper back/torso Upper back/torso Pain Duration: More than 5 years - Pain over last 6 months: Every day or nearly every day in the past 6 months - Symptoms from neck/cervical spine: Yes Yes Employment Status: Working now - Involved in law suit/legal claim: No - Spine Red Flags 05/25/2022 Any type of cancer: No Unexplained fever: Yes Bowel or bladder disfunction: Yes Unintentional weight loss: No Osteoporosis: No Neck Questionnaires 05/25/2022 Benzel Modified MARY Score Incomplete PROMIS Score Percentiles Physical Health 05/25/2022 Physical Function Percentile 12 Sleep Percentile 27* Fatigue Percentile 0 Pain Interference Percentile 8 PROMIS SOCIAL ROLE SCORE 05/25/2022 Social Role Satisfaction Percentile 31 PROMIS Global Health Scale 05/25/2022 Physical Health Percentile 2 Mental Health Percentile 43 Percentiles provide an indication of how the patient's score ranks in relation to the general population. Higher percentile rankings indicate better function/quality of life. 50th percentile is the average of the general population and indicates half of respondents had a worse score. Depression Screening: PHQ-9 05/25/2022 Score 8 PHQ-9 Self-harm Question 05/25/2022 Thoughts that you would be better off , or of hurting yourself in some way 0 PHQ-9 Self-Harm (Item 9) response options: 0 Not at all 1 Several days 2 More than half the days 3 Nearly every day PHQ-9 Levels: 0-4 No to mild depression 5-9 Mild depression 10-14 Moderate depression 15-19 Moderately severe depression 20-27 Severe depression OBJECTIVE: PHYSICAL EXAM BP 138/86 Pulse 84 LMP 05/19/2021 MOTOR: 5/5 BUE/BLE except RLE pain limited 4/5 SENSORY: Normal sensory exam GAIT: unable to do tandem gait REFLEXES: 2+ BUE/BLE LONG TRACT SIGNS: no hoffmans L'HERMITTES SIGN: Negative SPURLING'S TEST: Negative. DATA REVIEW Imaging and outside records independently reviewed and findings are as follows MRI shows right eccentric C5/6 disc herniation with cord compression ASSESSMENT/PLAN (G95.9) Cervical myelopathy (HCC) (primary encounter diagnosis) (M48.02) Cervical stenosis of spine In summary, Tammy Anna is a very pleasant 36 year old female with gait imbalance and progressive UE tingling and dexterity issues. We reviewed the imaging together, and I believe this patient has cervical stenosis with resultant cervical myelopathy. We discussed the natural history of this pathology in that approximately 70% of patients will notice a step-marcum decline in function over time, 20% will note a slow and steady decline, and 10% will have long periods of stability. We discussed treatment options including conservative management (such as medication, physical therapy, etc.), non-surgical interventions, and surgery. In this case, I recommend C5/6 ACDF. Tammy Anna is clinically indicated and wishes to pursue Anterior Cervical Discectomy and Fusion at C5/6 The risks, benefits, and anticipated outcomes of the procedure/treatment/test, the alternatives to the procedure/treatment/test and their risks and benefits, and the roles and tasks of the personnel to be involved were discussed with the patient or the patient s personal telemarketing representative. The patient has elected to schedule surgery at this time or intends to call the office with a surgical date. Shared decision making occurred while obtaining informed consent. Plan: C5/6 disc herniation with myelopathy: CT c-spine preop to rule out calcified disc OR planning for C5/6 ACDF Surgery Check List: Length - 2.5 hr block Position - supine, regualar bed Preoperative - Imaging: CT c-spine preop , Labs: standard Intraoperative - Navigation: no, Monitoring: no, Microscope: yes, Equipment: maren ACDF Postoperative Level of Care - RNF obs SIGNATURE: Reyes Roy MD PATIENT NAME: Tammy Anna DATE: June 02, 2022 TIME: 2:50 PM PAGER: I spent a total of 50 minutes on the date of the service which included preparing to see the patient, [id number] patient care, completing clinical documentation, obtaining and/or reviewing separately obtained history, performing a medically appropriate examination, counseling and educating the patient/family/caregiver, and communicating with other HCPs (not separately reported). documented in this encounter [facility] 05-27-2022 Note HNO ID: [id number] Author: Yovany Avery PA-C Service: ? Author Type: Physician Back End Architect Type: Progress Notes Filed: 05/27/2022 2:52 PM Note Text: Spine Care Path Neck Pain - Chronic (> 12 weeks) Follow Up Visit [facility] VISIT This Team Access Model visit is a virtual encounter. It required patient-provider interaction for the medical decision making as documented below. Tammy Anna has consented to this telephone and/or audio encounter. Persons Present: patient SUBJECTIVE HISTORY OF PRESENT ILLNESS: Tammy Anna is a 36 year old female who presents with a chief complaint of low back, neck, arm, and leg pain. Here for MRI review. Symptoms are mostly unchanged. Low back pain has been worse the past two days. Pain in neck radiating across the shoulder blades. Aching throughout the arms to all the fingers (R>L). Decreased worship director strength. Still dropping things with the hands. Hand dexterity difficulty. Unchanged. States balance is poor. Numbness and tingling throughout the right>left arm with coughing. With neck rotation she hears cracking. Last night she heard this more on the right side. Pain in bilateral (R>L) low back with intermittent radiation to R>>L buttocks and and posterior legs. Intermittent numbness and tingling in the legs (R>L). No change in bowel/bladder - She has intermittent urinary leakage for about 2 years. She will not have warning before this happens. 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 She was not sure about taking something that needs to be increased and decreased slowly. Smoking 0.5 PPD. Interventions: Medications: ibuprofen PRN, tylenol PRN -Previously tried: flexeril Physical therapy: 04/29/22 Previous spine injection history: none Previous spine surgery: none Treating providers: -Rheumatology Dr. Cuellar. Evaluation was 03/17/22 for chronic diffuse pain for more than 7 years. I have quite a low suspicion that she has any underlying systemic rheumatologic autoimmune disease that given the absence of signs and symptoms of inflammatory arthritides or stigmata of connective tissue diseases. Her joint pain is mechanical in nature and I could not appreciate any evidence of synovitis on physical examination. Nonetheless, with a history of positive JONY from outside hospital, I think it is prudent to obtain comprehensive JOSHUA panel as well as inflammatory markers to rule out systemic rheumatologic autoimmune disease with certainty. Phone encounter 03/18/22 JONY here is negative. All of the more specific markers for lupus and other autoimmune diseases (SSA, SSB, Cheryl 1, rheumatoid factor, anti-CCP etc.) are also negative. Office visit 04/23/22: She has pain throughout the body for at least 2 years. Pain in bilateral neck from base of the skull and down and across the shoulder blades. Constant. Worse with extension. Cracking in the neck with movement. Then becomes lightheaded and has headaches. Intermittent aching pain throughout the right arm - worse in medial and anterior arm- and to all the fingers. She has the same aching pain throughout the left arm but more mild and comes and goes. Symptoms started about 1.5 years ago and has been more constant the past 6 months. Cramping in the right thumb. 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 Difficulty with zippers, buttons, small objects. She can drop things with either hand if not paying close attention. Worse the past 4 months but started about 8 months ago. When she coughs she has numbness and tingling throughout right arm and all the fingers and starting throughout the left arm as well. Started about one month ago. She states her balance is poor the past year. Pain in bilateral (R>L) low back. Started about 2.5 years ago. Worse the past 1 year. Mostly constant. Worse with bending, prolonged standing/walking. Better with baths. Intermittent pain radiates to right buttock and right lateral hip and posterior leg. Occasional pain in the left posterior leg but minimal. She has intermittent weakness in the legs where the legs collapse randomly. The other day she was dancing and felt shocks throughout the whole body. She has intermittent numbness throughout the feet. Feet are ice cold at times. She has intermittent urinary leakage for about 2 years. She will not have warning before this happens. No bowel dysfunction. - states she has had colonscopy and endoscopy in the past. She has cold spouts and her whole body tenses up and shivers . Always feels like she has to crack the back. H/o carpal tunnel surgery on right. Smoking 0.5 PPD. Working on quitting. 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 PAIN EVALUATION 05/25/2022202005/27/2022 1203 Pain Level: 9 9 Pain Location: Back Back Description: Aching;Burning;Cramping;Dull;Pul sating;Radiating;Sharp;Stiffness ;Tightness; Tingling Stabbing;Dull;Achin (more content not included)... [facility] 05-21-2022 Note HNO ID: [id number] Author: RT Gurpreet(R) Service: ? Author Type: Technologist Type: Progress Notes Filed: 05/21/2022 2:27 PM Note Text: Radiology Service Progress Note PATIENT NAME: Tammy Anna DATE OF SERVICE: May 21, 2022 TIME: 2:27 PM PATIENT IDENTITY VERIFICATION COMPLETED USING TWO (2) IDENTIFIERS: Name and Date of confirmed by patient verbally. FALL SCREENING: Has the patient had 2 falls in the last year or 1 fall with injury or currently using an Ambulatory Assistive Device (Walker, Cane, Wheelchair, Crutches, etc.)? No PATIENT GENDER DATA: Female. status: : No status: NO. PATIENT RELEVANT IMPLANT DATA REVIEWED: Yes RADIOLOGY DEPARTMENT: MR; Exam(s) Completed: Spine: Cervical spine and Lumbar spine PERIPHERAL IV DATA: Not applicable SIGNED BY: RT Gurpreet(R) May 21, 2022 2:27 PM [facility] 04-29-2022 Note HNO ID: [id number] Author: Dank Springer PT Service: ? Author Type: Physical Therapist Type: Progress Notes Filed: 04/29/2022 1:10 PM Note Text: Episode Visit Count: 1 Therapist That Will Accept/Oversee The Plan Of Care: Dank Springer PT Start of Care Date: 04/29/22 Onset Date: 04/29/20 Plan of Care Certification Date: 04/29/22 Next Certification Due Date: 06/24/22 Patient Identified by Name and Date of : Yes REHABILITATION AND SPORTS THERAPY PHYSICAL THERAPY EVALUATION PLAN OF CARE: Assessment: Tammy Anna presents with chief complaint of neck pain with B UE involvement and low back pain with B LE involvement (R>L) that interferes with standing, walking, bending, heavy exertion, lifting, sitting, sleeping (prolonged positions). She presents with impairments in ADL's, flexibility, independence in exercise, overall function, range of motion, strength, symptom management, and tissue tenderness. Patient did not complete the PROMIS? (Patient Reported Outcome Measures Information System). Prognosis for therapy is Good due to: current objective clinical presentation, good overall health status, within-session changes, good support system/ coping skills, Prognosis may be limited due to chronic nature of impairments, occupational demands. She will benefit from skilled therapy services to meet the goals established for this plan of care as noted below. Classification Low Back Pain Subgroup Classification: Graded activity subgroup: recommended visits 12. Graded Activity Subgroup Classification based on: diffuse non anatomic pain Goals for Episode of Care: created on 04/29/22 through 06/24/22 Independent in home exercises. Patient will decrease pain to 2/10 at rest and with functional activities to allow patient to improve standing tolerance for ADLs. Restore pain-free lumbar ROM to WFL to allow for improved tolerance with work tasks. Stand / Walk without limitations, without pain/symptoms. Sleep through night without pain/symptoms. Sit without limitations, without pain/symptoms to allow for increased sitting tolerance Maintain proper sitting posture throughout session Patient will be able to tolerate standing, walking, bending, heavy exertion, lifting, sitting and sleeping without increased symptoms. Patient will increase strength of core and postural muscles to WFL to allow for improved position and activity tolerance. Restore pain free cervical ROM to WFL to allow for improved sleeping tolerance. Patient Goals: Decrease or eliminate pain. She wants to figure out what is causing her pain and fix it Planned Interventions, Frequency, and Duration: Current Frequency: 2x/week Duration: 8 weeks Total Number of Visits Planned: 16 Planned Treatment Interventions: Therapeutic exercise (39553), Neuromuscular re-education (21859), Manual therapy (35107), Therapeutic activities (32540), Self-prison management (02101), Patient/Family/Caregiver Education, Body Mechanics Training, General Conditioning, Functional training PLAN FOR NEXT VISIT: Review, correct and progress HEP to tolerance. Continue with postural stretching and strengthening therex. Continue postural correction and body presser instruction including lifting technique at work. Begin PNE cards. Patient demonstrates good understanding of plan of care and treatment. The above goals and plan of care were discussed and agreed upon by patient/family. SUBJECTIVE: Tammy Anna is a 36 year old female seen today for intermittent pain in both sides of neck and down into both UEs to fingers. She reports that these symptoms vary in intensity and frequency. She reports that she gets shock pains down both UEs. She reports that symptom triggers come from a variety of activities and is unpredictable. She also reports constant B LB pain that can radiate down into R LE to feet. She reports that these symptoms are sometimes triggered by prolonged positions and sometimes certain movement. Patient Goals: Decrease or eliminate pain. 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 [facility] 04-29-2022 History of Presen t illness Narrative Episode Visit Count: 1 Therapist That Will Accept/Oversee The Plan Of Care: Dank Springer PT Start of Care Date: 04/29/22 Onset Date: 04/29/20 Plan of Care Certification Date: 04/29/22 Next Certification Due Date: 06/24/22 Patient Identified by Name and Date of : Yes REHABILITATION AND SPORTS THERAPY PHYSICAL THERAPY EVALUATION PLAN OF CARE: Assessment: Tammy Anna presents with chief complaint of neck pain with B UE involvement and low back pain with B LE involvement (R>L) that interferes with standing, walking, bending, heavy exertion, lifting, sitting, sleeping (prolonged positions). She presents with impairments in ADL's, flexibility, independence in exercise, overall function, range of motion, strength, symptom management, and tissue tenderness. Patient did not complete the PROMIS (Patient Reported Outcome Measures Information System). Prognosis for therapy is Good due to: current objective clinical presentation, good overall health status, within-session changes, good support system/ coping skills, Prognosis may be limited due to chronic nature of impairments, occupational demands. She will benefit from skilled therapy services to meet the goals established for this plan of care as noted below. Classification Low Back Pain Subgroup Classification: Graded activity subgroup: recommended visits 12. Graded Activity Subgroup Classification based on: diffuse non anatomic pain Goals for Episode of Care: created on 04/29/22 through 06/24/22 Independent in home exercises. Patient will decrease pain to 2/10 at rest and with functional activities to allow patient to improve standing tolerance for ADLs. Restore pain-free lumbar ROM to WFL to allow for improved tolerance with work tasks. Stand / Walk without limitations, without pain/symptoms. Sleep through night without pain/symptoms. Sit without limitations, without pain/symptoms to allow for increased sitting tolerance Maintain proper sitting posture throughout session Patient will be able to tolerate standing, walking, bending, heavy exertion, lifting, sitting and sleeping without increased symptoms. Patient will increase strength of core and postural muscles to WFL to allow for improved position and activity tolerance. Restore pain free cervical ROM to WFL to allow for improved sleeping tolerance. Patient Goals: Decrease or eliminate pain. She wants to figure out what is causing her pain and fix it Planned Interventions, Frequency, and Duration: Current Frequency: 2x/week Duration: 8 weeks Total Number of Visits Planned: 16 Planned Treatment Interventions: Therapeutic exercise (92864), Neuromuscular re-education (47450), Manual therapy (29898), Therapeutic activities (68210), Self-prison management (71091), Patient/Family/Caregiver Education, Body Mechanics Training, General Conditioning, Functional training PLAN FOR NEXT VISIT: Review, correct and progress HEP to tolerance. Continue with postural stretching and strengthening therex. Continue postural correction and body presser instruction including lifting technique at work. Begin PNE cards. Patient demonstrates good understanding of plan of care and treatment. The above goals and plan of care were discussed and agreed upon by patient/family. SUBJECTIVE: Tammy Anna is a 36 year old female seen today for intermittent pain in both sides of neck and down into both UEs to fingers. She reports that these symptoms vary in intensity and frequency. She reports that she gets shock pains down both UEs. She reports that symptom triggers come from a variety of activities and is unpredictable. She also reports constant B LB pain that can radiate down into R LE to feet. She reports that these symptoms are sometimes triggered by prolonged positions and sometimes certain movement. Patient Goals: Decrease or eliminate pain. 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 Cancer Clinical Reasoning: No identified risk factors. Infection Clinical Reasoning: No identified risk factors. Cauda Equina Syndrome Red Flags: (bladder control issue that physician is aware of) Cauda Equina Syndrome Clinical Reasoning: Proceed with caution Cervical Arterial Dysfunction: Dizziness Cervical Arterial Dysfunction Clinical Reasoning: Proceed with caution Red Flags - Cervical Cancer Clinical Reasoning: No identified risk factors. Infection Clinical Reasoning: No identified risk factors. Cervical Arterial Dysfunction: Dizziness Cervical Arterial Dysfunction Clinical Reasoning: Proceed with caution Spine History Symptoms Location at Onset: Back, Neck Symptoms Since Onset: Worsening Pain is Worse Always: Bending, Sitting, Prolonged positions, Lying, Walking Pain is Better Sometimes: (heating pad and warm bath) Previous Episodes: No Sleeping Position: Side lying right, Side lying left Sleep Affected by Pain: Pain keeps from falling asleep, Pain awakens Pain: Pain Pain Level: 5 Pain Location: Neck - Right, Neck - Left, Arm - Right, Arm - Left Description: Aching, Dull, Stiffness Frequency: Intermittent (varies in intensity and frequency) Additional Pain Information : Location 2 Pain Level 2: 9 Pain Location 2: Low Back/Lumbar Spine - Right, Low Back/Lumbar Spine - Left, Low Back/Lumbar Spine- Midline, Leg - Right Description 2: Tightness Frequency 2: Continuous (varies in intensity) Post Treatment Pain Post Treatment Pain Level: Better Post Treatment Symptoms: After session today, she reported feeling hopeful and slightly less painful Post Treatment Pain Score 2: (Better) Post Treatment Pain Description 2: (After session today, she reported feeling hopeful and slightly less painful) PROMIS Scales T-scores: mean of general population = 50. 5 points is clinically meaningfully difference Percentiles provide an indication of how the patient's score ranks in relation to the general population. Higher percentile rankings indicate better function/quality of life. 50th percentile is the average of the general population and indicates half of respondents had a worse score. OBJECTIVE MEASURES WITH LEVEL OF FUNCTION: Posture / Alignment Posture: Forward head, Increased thoracic kyphosis, Rounded shoulders, Poor, Slump, Comments Posture comment: Pt acknowledges poor posture and bad body mechanics. She also indicates that her symptoms increase with postural correction Sitting Posture: Poor Effects of Posture Correction: worse Spine Observations R Cervical Spine Palpation Tenderness: Upper trapezius L Cervical Spine Palpation Tenderness: Upper trapezius R Lumbar Spine Palpation Tenderness: Paraspinals, Piriformis L Lumbar Spine Palpation Tenderness: Paraspinals, Piriformis Sensation - Lumbar Sensation: Comments Sensation Additional Comments: Pt reports altered sensation that can shoot down her legs to toes Lumbar Spine AROM Lumbar Flexion: Minimal limitation, Increased pain Lumbar Extension: Normal Lumbar R Side-Bend: Normal Lumbar L Side-Bend: Minimal limitation, Increased pain, Produces Lumbar R Rotation: Minimal limitation Lumbar L Rotation: Minimal limitation Sensation - Cervical Spine Cervical Spine Sensation: Comments Cervical Spine Sensation - Comments: Pt reports altered sensation that can shoot down her arms to fingers Cervical Spine ROM Cervical ROM : Measurement AROM Cervical Flexion AROM (degrees) : 30 Degrees Cervical Extension AROM (degrees) : 30 Degrees Cervical Side-Bend Right AROM (degrees): 22 Degrees Cervical Side-Bend Left AROM (degrees) : 32 Degrees Cervical Rotation Right AROM (degrees) : 53 Degrees Cervical Rotation Left AROM (degrees) : 58 Degrees LE Flexibility Flexibility: Piriformis Flexibility R Piriformis Flexibility: 23 L Piriformis Flexibility: 30 LE Strength Trunk Strength: Pt's postural deficits, chronicity of symptoms, job demands and reported functional difficulties, especially with prolonged positions indicate that she will benefit from increased core and postural strength. Special Tests - Hip and Spine Hip and Spine Special Tests: SLR Test SLR Test: Right Positive, Left Positive Education: Education Learning Preferences: Demonstration, Explanation, Printed Materials, Performance Barriers: None Learning/educational needs: Lifestyle changes, Plan of Care, Home exercise program, Posture, Body Mechanics Education Provided: Yes, see treatment interventions for education provided Education Provided To: Patient Education Mode/Type: Demonstration, Explanation/Discussion, Literature/Printed Materials, Performance Response to Education/Teach Back: States/Identifies, Return Demonstration, Requires Review/Additional Education TREATMENT: PT Treatment Interventions: Therapeutic Exercise Evaluation Therapeutic Exercise: 1: Pt was educated on anatomy of symptomatic areas, likely source of symptoms and the role of PT in her recovery. Postural correction was completed with handout issued to supplement verbal instructions. She was educated on the importance of proper body mechanics, especially at work. Pt was briefly introduced to the PNE concept and she was open to expanding this training in future PT visits. She was advised that hurt does not equal harm but that she should use pain as her guide and back off or stop any exercise that causes increased pain. She understood and agreed. 2: *seated B UT stretch 3x30 seconds in pain-free range 3: *supine B piriformis stretches 3x30 seconds Skilled Intervention: Patient was educated in proper exercise technique and purpose for exercises. Reviewed and educated patient on additions/changes for home exercise program as above (*). Skilled judgment was provided in selection of appropriate interventions. Provided written instruction for home exercise program to facilitate proper performance and compliance. Correct performance of therapeutic exercises was facilitated with verbal, visual, and tactile cuing. Patient education as noted. Billing * Evaluation Moderate Complexity: 1 Unit Therapeutic Exercise Treatment Minutes: 15 Total Treatment Time Minutes (timed/untimed): 45 Dank Springer PT documented in this encounter [facility] 04-23-2022 Note HNO ID: [id number] Author: Yovany Avery PA-C Service: ? Author Type: Physician Back End Architect Type: Progress Notes Filed: 04/23/2022 2:45 PM Note Text: Spine Care Path Neck Pain - Chronic (> 12 weeks) Initial Exam SUBJECTIVE HISTORY OF PRESENT ILLNESS: Tammy Anna is a 36 year old female who presents with a chief complaint of low back, neck, arm, and leg pain and is seen in consultation requested by Dr. Cuellar for an opinion regarding neck pain, low back pain. My final recommendations will be communicated back to the requesting physician by way of shared medical record or letter via US mail. She has pain throughout the body for at least 2 years. Pain in bilateral neck from base of the skull and down and across the shoulder blades. Constant. Worse with extension. Cracking in the neck with movement. Then becomes lightheaded and has headaches. Intermittent aching pain throughout the right arm - worse in medial and anterior arm- and to all the fingers. She has the same aching pain throughout the left arm but more mild and comes and goes. Arm pain started Symptoms started about 1.5 years ago and has been more constant the past 6 months. Cramping in the right thumb. 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 Difficulty with zippers, buttons, small objects. She can drop things with either hand if not paying close attention. Worse the past 4 months but started about 8 months ago. When she coughs she has numbness and tingling throughout right arm and all the fingers and starting throughout the left arm as well. Started about one month ago. She states her balance is poor the past year. Pain in bilateral (R>L) low back. Started about 2.5 years ago. Worse the past 1 year. Mostly constant. Worse with bending, prolonged standing/walking. Better with baths. Intermittent pain radiates to right buttock and right lateral hip and posterior leg. Occasional pain in the left posterior leg but minimal. She has intermittent weakness in the legs where the legs collapse randomly. The other day she was dancing and felt shocks throughout the whole body. She has intermittent numbness throughout the feet. Feet are ice cold at times. She has intermittent urinary leakage for about 2 years. She will not have warning before this happens. No bowel dysfunction. - states she has had colonscopy and endoscopy in the past. She has cold spouts and her whole body tenses up and shivers . Always feels like she has to crack the back. H/o carpal tunnel surgery on right. Smoking 0.5 PPD. Working on quitting. 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 Interventions: Medications: ibuprofen PRN, tylenol PRN -Previously tried: flexeril Physical therapy: none Previous spine injection history: none Previous spine surgery: none Treating providers: -Rheumatology Dr. Cuellar. Evaluation was 03/17/22 for chronic diffuse pain for more than 7 years. I have quite a low suspicion that she has any underlying systemic rheumatologic autoimmune disease that given the absence of signs and symptoms of inflammatory arthritides or stigmata of connective tissue diseases. Her joint pain is mechanical in nature and I could not appreciate any evidence of synovitis on physical examination. Nonetheless, with a history of positive JONY from outside hospital, I think it is prudent to obtain comprehensive JOSHUA panel as well as inflammatory markers to rule out systemic rheumatologic autoimmune disease with certainty. Phone encounter 03/18/22 JONY here is negative. All of the more specific markers for lupus and other autoimmune diseases (SSA, SSB, Cheryl 1, rheumatoid factor, anti-CCP etc.) are also negative. PAIN EVALUATION 04/23/2022 0903 Pain Level: 7 Pain Location: Back-Lower Description: Radiating;Sharp Duration Amount of Time: 2 Duration Units: Years Frequency: Continuous Intervention/Comfort measure: Medication;Heat Litigation: No Workers' Compensation: No YELLOW AND BLUE FLAGS No-Neg Attitude; Back Pain is Disabling No-Avoiding Activity (for Fear of Pain) YES-Depression or Anxiety Disorders No-Social Problems No-Substance Use Disorder No-Job Dissatisfaction No-Financial Disincentives Patient Entered Questionnaires PROMIS Score Percentiles Percentiles provide an indication of how the patient's score ranks in relation to the general population. Higher percentile rankings indicate better function/quality of life. 50th percentile is the average of the general population and indicates half of respondents had a worse score. Depression Screening: PHQ-9 Self-Harm (Item 9) response options: 0 Not at all 1 Several days 2 More than half the days 3 Nearly every day PHQ-9 Levels: 0-4 No - mild depression 5-9 Mild depression 10-14 Moderate depression 15-19 Moderately severe depression 20-27 Severe depression ACTIVE PROBLEM LIST [facility] (more content not included)... [facility] 04-23-2022 Instructions Yovany Avery PA-C - 04/23/2022 9:44 AM EST Images from the original note were not included. Office: Gabapentin 300mg Medication Titration Instructions: AM (# of pills) Noon (# of pills) PM (# of pills) Days 1- 4 0 0 1 Days 5- 8 1 0 1 Days 9+ 1 1 1 Follow the chart. You keep increasing until you reach a dose that is helpful with the pain. Once you reach that dose, you maintain on that dose - for example 1 pill in the morning and 2 pills at bedtime. The most common side effects are drowsiness, fatigue, dizziness and foggy thinking. Less frequently, gabapentin can cause swelling in the hands or feet, mood changes or weight gain. You may go slower than that if they are noting any side effects, such as increasing by one pill every week. If one is having those side effects and they are not tolerable, they should not continue to increase the gabapentin but rather decrease by one pill every other day to return to the previous dose that was effective without intolerable side effects. Do not stop the medication abruptly - decrease by one pill every other day if you wish to wean off. Please contact the office when you have several days left, we will send you in a refill to reflect the dose you find helpful. It may be increased further is partial benefit with no issues with side effects - this can be discussed further. Call or MyChart the office if questions. documented in this encounter [facility] 04-23-2022 History of Presen t illness Narrative [facility] Neck Pain - Chronic (> 12 weeks) Initial Exam SUBJECTIVE HISTORY OF PRESENT ILLNESS: Tammy Anna is a 36 year old female who presents with a chief complaint of low back, neck, arm, and leg pain and is seen in consultation requested by Dr. Cuellar for an opinion regarding neck pain, low back pain. My final recommendations will be communicated back to the requesting physician by way of shared medical record or letter via US mail. She has pain throughout the body for at least 2 years. Pain in bilateral neck from base of the skull and down and across the shoulder blades. Constant. Worse with extension. Cracking in the neck with movement. Then becomes lightheaded and has headaches. Intermittent aching pain throughout the right arm - worse in medial and anterior arm- and to all the fingers. She has the same aching pain throughout the left arm but more mild and comes and goes. Arm pain started Symptoms started about 1.5 years ago and has been more constant the past 6 months. Cramping in the right thumb. 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 Difficulty with zippers, buttons, small objects. She can drop things with either hand if not paying close attention. Worse the past 4 months but started about 8 months ago. When she coughs she has numbness and tingling throughout right arm and all the fingers and starting throughout the left arm as well. Started about one month ago. She states her balance is poor the past year. Pain in bilateral (R>L) low back. Started about 2.5 years ago. Worse the past 1 year. Mostly constant. Worse with bending, prolonged standing/walking. Better with baths. Intermittent pain radiates to right buttock and right lateral hip and posterior leg. Occasional pain in the left posterior leg but minimal. She has intermittent weakness in the legs where the legs collapse randomly. The other day she was dancing and felt shocks throughout the whole body. She has intermittent numbness throughout the feet. Feet are ice cold at times. She has intermittent urinary leakage for about 2 years. She will not have warning before this happens. No bowel dysfunction. - states she has had colonscopy and endoscopy in the past. She has cold spouts and her whole body tenses up and shivers . Always feels like she has to crack the back. H/o carpal tunnel surgery on right. Smoking 0.5 PPD. Working on quitting. 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 Interventions: Medications: ibuprofen PRN, tylenol PRN -Previously tried: flexeril Physical therapy: none Previous spine injection history: none Previous spine surgery: none Treating providers: -Rheumatology Dr. Cuellar. Evaluation was 03/17/22 for chronic diffuse pain for more than 7 years. I have quite a low suspicion that she has any underlying systemic rheumatologic autoimmune disease that given the absence of signs and symptoms of inflammatory arthritides or stigmata of connective tissue diseases. Her joint pain is mechanical in nature and I could not appreciate any evidence of synovitis on physical examination. Nonetheless, with a history of positive JONY from outside hospital, I think it is prudent to obtain comprehensive JOSHUA panel as well as inflammatory markers to rule out systemic rheumatologic autoimmune disease with certainty. Phone encounter 03/18/22 JONY here is negative. All of the more specific markers for lupus and other autoimmune diseases (SSA, SSB, Cheryl 1, rheumatoid factor, anti-CCP etc.) are also negative. PAIN EVALUATION 04/23/2022 0903 Pain Level: 7 Pain Location: Back-Lower Description: Radiating;Sharp Duration Amount of Time: 2 Duration Units: Years Frequency: Continuous Intervention/Comfort measure: Medication;Heat Litigation: No Workers' Compensation: No YELLOW & BLUE FLAGS No-Neg Attitude; Back Pain is Disabling No-Avoiding Activity (for Fear of Pain) YES-Depression or Anxiety Disorders No-Social Problems No-Substance Use Disorder No-Job Dissatisfaction No-Financial Disincentives Patient Entered Questionnaires PROMIS Score Percentiles Percentiles provide an indication of how the patient's score ranks in relation to the general population. Higher percentile rankings indicate better function/quality of life. 50th percentile is the average of the general population and indicates half of respondents had a worse score. Depression Screening: PHQ-9 Self-Harm (Item 9) response options: 0 Not at all 1 Several days 2 More than half the days 3 Nearly every day PHQ-9 Levels: 0-4 No - mild depression 5-9 Mild depression 10-14 Moderate depression 15-19 Moderately severe depression 20-27 Severe depression ACTIVE PROBLEM LIST Atrial Paroxysmal Tachycardia (Hcc) Anxiety Attack PAST MEDICAL HISTORY Diagnosis Date Generalized anxiety disorder PAST SURGICAL HISTORY Procedure Laterality Date COLONOSCOPY 05/23/2021 EGD 05/23/2021 Social History Tobacco Use Smoking status: Every Day Packs/day: 1.00 Years: 23.00 Pack years: 23.00 Types: Cigarettes Smokeless tobacco: Never Substance Use Topics Alcohol use: Yes Drug use: Yes Comment: medical card FAMILY HISTORY Problem Relation Age of Onset No Ocular Disease No Family History ALLERGIES Allergen Reactions Penicillins Anaphylaxis CURRENT MEDICATIONS: cyclobenzaprine (FLEXERIL) 10 mg tablet Take 10 mg by mouth three times daily as needed. loratadine (CLARITIN) 10 mg tablet Take 10 mg by mouth once daily. omeprazole (PRILOSEC) 40 mg capsule Take 1 capsule by mouth once daily. peg 3350-Electrolytes (GOLYTELY) 236-22.74-6.74 -5.86 gram suspension Refer to printed prep instructions from your provider. (Patient not taking: Reported on 12/24/2021) REVIEW OF SYSTEMS: PAIN ASSESSMENT: See HPI. GENERAL: Denies fever or unexplained weight loss. +chills CARDIOVASCULAR: +chest pain. RESPIRATORY: +SOB GI: + intermittent nausea. No vomiting : + intermittent bladder incontinence MUSCULOSKELETAL: Positive for See HPI PSYCHOLOGICAL: +Anxiety NEURO: Denies seizures. +headaches. ENDOCRINE: Denies diabetes HEMATOLOGY/LYMPHOLOGY: Denies cancer OBJECTIVE: PHYSICAL EXAM BP 137/87 Pulse 83 Ht 175.3 cm (5' 9 ) Wt 92.1 kg (203 lb) LMP 05/19/2021 BMI 29.98 kg/m GENERAL APPEARANCE: Well appearing, well-hydrated, well nourished and alert SKIN: Head, neck, trunk, and extremities dry, intact and without lesions LUNGS: even and non-labored breathing, normal chest excursion NEURO/PSYCH: oriented to time, place, and person, speech normal, mental status intact GAIT: normal, toe walking normal, heel walking normal, able to tandem gait POSTURE: Posture and spinal curves are normal PALPATION: no palpable masses, tenderness, or spasm, no palpable subluxation or step-off. Tenderness to midline cervical and right > left paraspinals. Tenderness to right shoulder joint. Tenderness to midline lumbar and right paraspinals MUSCULOSKELETAL: Cervical Range of Motion Flexion Restricted Extension Restricted RIGHT LEFT Rotation Limited ROM with pain Limited ROM with pain Lateral Bend Limited ROM with pain Limited ROM with pain Upper Body Reflex Exam RIGHT LEFT Reflex Status Reflex Status Biceps 2+ Normal 2+ Normal Triceps 2+ Normal 2+ Normal Brachioradialis 2+ Normal 2+ Normal Arreaga's Sign absent absent Upper Extremity Strength RIGHT LEFT Strength (MMT) Strength (MMT) Shoulder Abduction 5/5 5/5 Biceps 5/5 5/5 Triceps 5/5 5/5 Wrist Extension 5/5 5/5 Interossei 5/5 5/5 Shoulder Range of Motion RIGHT LEFT Flexion Normal Normal Extension Normal Normal Abduction Normal Normal Adduction Normal Normal Internal Rotation Normal Normal External Rotation Normal Normal Shoulder Tests Neer Impingement Sign - right shoulder pain Extended Low Back & Leg Exam Lumbar Range of Motion Flexion 6 inches from floor Extension Restricted RIGHT LEFT Lateral Bending Limited Limited Oblique Extension (facet loading) Decreased Decreased Leg Raise Straight Leg Raise Negative Negative Contralateral Straight Leg Raise Negative Negative DTRs Knee Normal Normal Ankle Normal Normal Clonus negative Strength of Lower Extremities Hip Flexion 5/5 5/5 Knee Extension 5/5 5/5 Ankle Dorsiflexion 5/5 5/5 Ankle Plantarflexion 5/5 5/5 Hip Range of Motion RIGHT LEFT Flexion Normal Normal Extension Normal Normal Abduction Normal Normal Adduction Normal Normal Internal Rotation Normal Normal External Rotation Normal Normal Hip Exam RIGHT LEFT TARSHA Exam Normal Normal Trochanteric Bursa Tenderness Normal Normal FADIR:negative Log-roll Hips: negative PSIS tenderness: positive on Bilateral NEUROSENSORY: Soft touch; Within Normal Limits Tinel's positive at bilateral wrists with tingling into hands. Tinel's negative at bilateral elbows Data Review: [facility] records independently reviewed Images independently reviewed with the patient Cervical XR 03/17/22: Mild rightward head tilt with reversal of the cervical lordosis which is centered at C4-5. Minimal anterolisthesis at this level with minimal dorsal ridging. The disc space is preserved. Other disc heights are maintained as is the atlantoaxial interval. There is an incomplete arcuate foramen along the posterior arch of C1. Prevertebral soft tissues are normal. Osseous foraminal encroachment is seen on the RIGHT at the C3-4 and C6-7 levels. No osseous foraminal encroachment on the LEFT. Lumbar XR 03/17/22: Mild apex rightward curvature is centered at L4-5. The lordosis is preserved without subluxation. There are mild inferior endplate deformities of the anterior aspect of T12 and L5 which are smoothly marginated and consistent with chronic changes. No acute fractures identified. No destructive lesion. The sacroiliac joints and hips appear preserved. ASSESSMENT/PLAN (M54.41, G89.29) Chronic bilateral low back pain with right-sided sciatica (primary encounter diagnosis) (M79.601, M79.602) Pain in both upper extremities (M54.2) Neck pain (R26.89) Imbalance (N31.9) Bladder dysfunction (R29.898) Impaired dexterity 36 year old female with chronic diffuse pain. Pain in bilateral neck to shoulder blades. Diffuse aching through right>left arm. Weakness in bilateral hands and difficulty with dexterity and balance. With coughing she has tingling into the right>left arm. Low back pain with intermittent radiation to right posterior leg. She reports intermittent urinary incontinence for the past 2 years. No bowel incontinence. Recommend cervical MRI to rule out cervical myelopathy and lumbar MRI to evaluate for lumbar stenosis given red flag symptoms. Encouraged smoking cessation. Recommend starting course of physical therapy. 1. Imaging/diagnostics: cervical MRI, lumbar MRI 2. Physical therapy: start PT 3. Medication: trial gabapentin up to 300mg TID as tolerated. Titration and possible side effects discussed. 4. Referrals: PT 5. Considerations: [facility] 6. Follow up: visit after imaging I spent a total of 55 minutes on the date of the service which included preparing to see the patient, [id number] patient care, completing clinical documentation, obtaining and/or reviewing separately obtained history, performing a medically appropriate examination, counseling and educating the patient/family/caregiver, ordering medications, tests, or procedures, independently interpreting results (not separately reported), and communicating results to the patient/family/caregiver. Imaging Ordered: For possible Cervical Myelopathy due to presence of red flags detailed in HPI. For possible Lumbar Spinal Stenosis due to presence of red flags detailed in HPI. SIGNATURE: Yovany Avery PA-C PATIENT NAME: Tammy Anna DATE: April 23, 2022 TIME: 8:56 AM documented in this encounter [facility] 03-17-2022 Note HNO ID: [id number] Author: Garcia Cuellar MD Service: ? Author Type: Physician Type: Progress Notes Filed: 03/17/2022 1:44 PM Note Text: Garcia Cuellar MD Tammy Anna March 17, 2022 Referring Provider: PCP: Tonya Arriaga CNP Chief Complaint: Patient presents with: New Patient HPI:Tammy Anna is a 36 year old female who comes here today for positive JONY. She has been dealing with chronic diffuse pain for more than 7 years. The pain is everywhere in her body. It affects her joints, bone and soft tissue. It is more prominent on the right side. It is aggravated by physical activities. The pain tend to be at the worst with end of the day and not in the morning although she describes some morning stiffness. No joint swelling. The pain is usually worse in her back associated with intermittent sharp shooting pain down to her calf bilaterally. She also describes occasional numbness/tingling in her legs and feet. She has been using Tylenol and Advil as needed with minimal benefit. She complains of chest pain around her chest bone. It comes and goes. She also complains of wheezing and chest tightness. She complains of chronic diarrhea but investigations including colonoscopy are unremarkable. Review of system is negative for rash, malar rash, photosensitivity, frequent oral ulcer, objective fever or other CTD symptoms. She is adopted. Therefore, she does not know much about her biological family. She was seen by a local provider. Reportedly, her JONY is positive. Therefore, the patient is referred to see me. PAST MEDICAL HISTORY Diagnosis Date Generalized anxiety disorder PAST SURGICAL HISTORY Procedure Laterality Date COLONOSCOPY 05/23/2021 EGD 05/23/2021 Social History Tobacco Use Smoking status: Every Day Packs/day: 1.00 Years: 23.00 Pack years: 23.00 Types: Cigarettes Smokeless tobacco: Never Substance Use Topics Alcohol use: Yes Drug use: Yes Comment: medical card Health Maintenance: HEPATITIS B(1 of 3 - 3-dose series) Never done COVID-19 VACCINE(1) Never done PNEUMOCOCCAL(1 - PCV) Never done HEPATITIS C SCREENING Never done HIV SCREENING Never done DTAP,TDAP,TD(1 - Tdap) Never done PAP TESTING Never done HPV TESTING Never done INFLUENZA(1) Never done DEPRESSION ASSESSMENT Never done There is no immunization history on file for this patient. Current Outpatient Medications Medication Sig Dispense Refill cyclobenzaprine (FLEXERIL) 10 mg tablet Take 10 mg by mouth three times daily as needed. loratadine (CLARITIN) 10 mg tablet Take 10 mg by mouth once daily. omeprazole (PRILOSEC) 40 mg capsule Take 1 capsule by mouth once daily. 30 capsule 5 peg 3350-Electrolytes (GOLYTELY) 236-22.74-6.74 -5.86 gram suspension Refer to printed prep instructions from your provider. (Patient not taking: Reported on 12/24/2021) 4000 mL 0 No current facility-administered medications for this visit. ALLERGIES Allergen Reactions Penicillins Anaphylaxis Physical Exam: BP 112/76 Pulse 76 Temp (Src) 96.5 (Left Tympanic) Wt 199 lb (90.3kg) LMP 05/19/2021 General: Not pale, no jaundice, not in acute distress Head: Normocephalic, atraumatic Eyes: No redeye, no discharge ENT: No oral/nasal ulcer Neck: No lymphadenopathy Lungs: Normal breath sound, no adventitious sound Abdomen: Soft, not tender CV: Normal S1 S2, no murmur, no rub, pulse regular Skin: No rash, no malar rash, no telangiectasia, no pitting nail/onycholysis, no gross periungual telangiectasia Neuro: Grossly intact, motor power 5 all Joints No active synovitis Positive soft tissue tender points in: Low cervical anterior BL Edge of sternum BL Lateral epicondyle BL Medial Knee BL Occiput BL Greater trochanter BL Gluteal BL Trapezius BL Supraspinatus BL Labs: Serology: CRP: No results found for: CCPABG RF: No results found for: RF ESR: No results found for: WSR CRP No results found for: CRP Quantiferon:No components found for: QTBA Cr: No components found for: CR CBC: Imaging: Impression: 36 year old female presents for rheumatology evaluation at [facility] on March 17, 2022. Chronic diffuse joint and soft tissue pain Chronic neck pain Chronic back pain Numbness and tingling sensation in feet Positive JONY I have quite a low suspicion that she has any underlying systemic rheumatologic autoimmune disease that given the absence of signs and symptoms of inflammatory arthritides or stigmata of connective tissue diseases. Her joint pain is mechanical in nature and I could not appreciate any evidence of synovitis on physical examination. Nonetheless, with a history of positive JONY from outside hospital, I think it is prudent to obtain comprehensive JOSHUA panel as well as inflammatory markers to rule out systemic rheumatologic autoimmune disease with certainty. One of the major sources of he (more content not included)... [facility] 03-17-2022 History of Presen t illness Narrative Garcia Cuellar MD Tammy Anna March 17, 2022 Referring Provider: PCP: Tonya Arriaga CNP Chief Complaint: Patient presents with: New Patient HPI:Tammy Anna is a 36 year old female who comes here today for positive JONY. She has been dealing with chronic diffuse pain for more than 7 years. The pain is everywhere in her body. It affects her joints, bone and soft tissue. It is more prominent on the right side. It is aggravated by physical activities. The pain tend to be at the worst with end of the day and not in the morning although she describes some morning stiffness. No joint swelling. The pain is usually worse in her back associated with intermittent sharp shooting pain down to her calf bilaterally. She also describes occasional numbness/tingling in her legs and feet. She has been using Tylenol and Advil as needed with minimal benefit. She complains of chest pain around her chest bone. It comes and goes. She also complains of wheezing and chest tightness. She complains of chronic diarrhea but investigations including colonoscopy are unremarkable. Review of system is negative for rash, malar rash, photosensitivity, frequent oral ulcer, objective fever or other CTD symptoms. She is adopted. Therefore, she does not know much about her biological family. She was seen by a local provider. Reportedly, her JONY is positive. Therefore, the patient is referred to see me. PAST MEDICAL HISTORY Diagnosis Date Generalized anxiety disorder PAST SURGICAL HISTORY Procedure Laterality Date COLONOSCOPY 05/23/2021 EGD 05/23/2021 Social History Tobacco Use Smoking status: Every Day Packs/day: 1.00 Years: 23.00 Pack years: 23.00 Types: Cigarettes Smokeless tobacco: Never Substance Use Topics Alcohol use: Yes Drug use: Yes Comment: medical card Health Maintenance: HEPATITIS B(1 of 3 - 3-dose series) Never done COVID-19 VACCINE(1) Never done PNEUMOCOCCAL(1 - PCV) Never done HEPATITIS C SCREENING Never done HIV SCREENING Never done DTAP,TDAP,TD(1 - Tdap) Never done PAP TESTING Never done HPV TESTING Never done INFLUENZA(1) Never done DEPRESSION ASSESSMENT Never done There is no immunization history on file for this patient. Current Outpatient Medications Medication Sig Dispense Refill cyclobenzaprine (FLEXERIL) 10 mg tablet Take 10 mg by mouth three times daily as needed. loratadine (CLARITIN) 10 mg tablet Take 10 mg by mouth once daily. omeprazole (PRILOSEC) 40 mg capsule Take 1 capsule by mouth once daily. 30 capsule 5 peg 3350-Electrolytes (GOLYTELY) 236-22.74-6.74 -5.86 gram suspension Refer to printed prep instructions from your provider. (Patient not taking: Reported on 12/24/2021) 4000 mL 0 No current facility-administered medications for this visit. ALLERGIES Allergen Reactions Penicillins Anaphylaxis Physical Exam: BP 112/76 Pulse 76 Temp (Src) 96.5 (Left Tympanic) Wt 199 lb (90.3kg) LMP 05/19/2021 General: Not pale, no jaundice, not in acute distress Head: Normocephalic, atraumatic Eyes: No redeye, no discharge ENT: No oral/nasal ulcer Neck: No lymphadenopathy Lungs: Normal breath sound, no adventitious sound Abdomen: Soft, not tender CV: Normal S1 S2, no murmur, no rub, pulse regular Skin: No rash, no malar rash, no telangiectasia, no pitting nail/onycholysis, no gross periungual telangiectasia Neuro: Grossly intact, motor power 5 all Joints No active synovitis Positive soft tissue tender points in: Low cervical anterior BL Edge of sternum BL Lateral epicondyle BL Medial Knee BL Occiput BL Greater trochanter BL Gluteal BL Trapezius BL Supraspinatus BL Labs: Serology: CRP: No results found for: CCPABG RF: No results found for: RF ESR: No results found for: WSR CRP No results found for: CRP Quantiferon:No components found for: QTBA Cr: No components found for: CR CBC: Imaging: Impression: 36 year old female presents for rheumatology evaluation at [facility] on March 17, 2022. Chronic diffuse joint and soft tissue pain Chronic neck pain Chronic back pain Numbness and tingling sensation in feet Positive JONY I have quite a low suspicion that she has any underlying systemic rheumatologic autoimmune disease that given the absence of signs and symptoms of inflammatory arthritides or stigmata of connective tissue diseases. Her joint pain is mechanical in nature and I could not appreciate any evidence of synovitis on physical examination. Nonetheless, with a history of positive JONY from outside hospital, I think it is prudent to obtain comprehensive JOSHUA panel as well as inflammatory markers to rule out systemic rheumatologic autoimmune disease with certainty. One of the major sources of her pain is back pain. She also describes symptom of sciatica and numbness/tingling sensation in her legs which could be suggestive of radiculopathy. I will obtain cervical and lumbar spine x-rays. I may need to refer her to spine clinic. Recommendations/Plan Plan discussed with patient Return Visit: I will contact her through [facility] for results. We will make a plan after the results are available. I spent a total of 70 minutes on the date of the service which included preparing to see the patient, [id number] patient care, completing clinical documentation, obtaining and/or reviewing separately obtained history, performing a medically appropriate examination, counseling and educating the patient/family/caregiver, and ordering medications, tests, or procedures. Garcia Cuellar MD Referring Provider: PCP: Tonya Arriaga CNP documented in this encounter [facility] 12-24-2021 Note HNO ID: [id number] Author: Jamaal Sebastian MD Service: ? Author Type: Physician Type: Progress Notes Filed: 12/24/2021 10:23 AM Note Text: Assessment and Plan 1. Progressive peripheral pterygium of right eye -with dry eye symptoms -noticed it ~1 year ago, seems to be growing 2. Dry eye syndrome of both eyes -evaporative, with pterygium making it worse Plan: -artificial tears 2-four times a day both eyes -follow-up 6 months. If bigger / still uncomfortable, to consider excision with pathology I have confirmed and edited as necessary the relevant ophthalmic history, ROS, and the neuro exam findings as obtained by others. I have seen and examined Tammy Anna. I have discussed the case and the management of this patient's care with the Resident/Fellow, if applicable. I also have reviewed and agree with the assessment and plan as stated above and agree with all of its relevant components. Jamaal Sebastian MD December 24, 2021 10:14 AM [facility] 12-24-2021 Instructions Jamaal Sebastian MD - 12/24/2021 10:15 AM EDT Images from the original note were not included. documented in this encounter [facility] 12-24-2021 History of Presen t illness Narrative Assessment and Plan 1. Progressive peripheral pterygium of right eye -with dry eye symptoms -noticed it ~1 year ago, seems to be growing 2. Dry eye syndrome of both eyes -evaporative, with pterygium making it worse Plan: -artificial tears 2-four times a day both eyes -follow-up 6 months. If bigger / still uncomfortable, to consider excision with pathology I have confirmed and edited as necessary the relevant ophthalmic history, ROS, and the neuro exam findings as obtained by others. I have seen and examined Tammy Anna. I have discussed the case and the management of this patient's care with the Resident/Fellow, if applicable. I also have reviewed and agree with the assessment and plan as stated above and agree with all of its relevant components. Jamaal Sebastian MD December 24, 2021 10:14 AM documented in this encounter [facility] 06-05-2021 Miscellaneous Notes Called client services and they will be running the celiac screening today. Patient is asking what IGA Blood is testing for. Not exactly sure how to answer this. documented in this encounter [facility] 06-03-2021 Miscellaneous Notes Patient calls in to check on MC message. MC Message reviewed with patient from provider's office: All the labs that have resulted so far are normal or negative. Great news. Still waiting on the Celiac screening and as soon as that is completed will update you of results. Patient verbalizes understanding and will wait to hear back on Celiac screening results. Dior Hendricks RN documented in this encounter [facility] 05-31-2021 Miscellaneous Notes Done. Lauren Esquivel APRN.YING A new order for H-Pylori stool needs placed. Previous one has . documented in this encounter [facility] 05-29-2021 Miscellaneous Notes Patient returned call and given provider's message below with verbalized understanding. LEFT MESSAGE FOR PATIENT TO CALL OFFICE. Please call patient - I have placed the order for celiac testing based on her results from her EGD. Thanks Lauren Esquivel APRN.PHARMACY BENEFIT MANAGER Biopsies from small bowel/duodenum showed mildly increased lymphocytes. Recommend checking celiac serology if not already done. Otherwise biopsies are unremarkable. Follow up with Ms Esquivel in GI clinic. Mckinley Mendez MD documented in this encounter [facility] 05-23-2021 Nurse Note 100mL of LR given in recovery. Iv was intact, no redness. Hob up. Passing air. States ready to go. Medical Office Coordinator called - here. Assisted pt w/dressing. All belongings given. Dr was already at the bedside. No questions. Dr at the bedside. No questions. Medical Office Coordinator called - here. Encouraged to pass air documented in this encounter [facility] 05-23-2021 History and physical note HISTORY AND PHYSICAL Tammy Avila, 35 year old female here for eGD/colonoscopy to evaluate GERD, epigastric pain, dark stools, loose stools. Current history and physical on file: Yes Is a new History and Physical required for today's visit? No Indication for procedure: Abdominal pain, Diarrhea and GERD PROCEDURE(S) SCHEDULED FOR: Colonoscopy with or without biopsies and with or without removal of polyps or lesions, dilation (any means), treatment of bleeding (any means), based on clinical findings. and EGD (Esophagogastroduodenoscopy) with or without biopsies, removal of polyps or lesions, dilation ( any means), treatment of bleeding ( any means), Barrx treatment of Mikhail's Esophagus, image tube placement or cryo therapy treatment based on clinical findings. BASELINE BEHAVIOR: Calm BASELINE ORIENTATION: A & O x3 All medications and allergies reviewed: Yes Skin Assessment: Warm dry mucus membranes pink Airway/Respiratory Assessment: Airway: visualization of the uvula- Yes Mouth: opening greater than 2 fingerbreadths- Yes Neck: full range of motion- Yes Breath sounds clear/equal- Yes Cardiac Assessment: Regular rate and rhythm without murmur Abdominal Assessment: Abdomen soft, non-tender, no masses or organomegaly. Sedation Plan: Moderate Additional Comments: None Mckinley Mendez MD documented in this encounter [facility] 05-21-2021 History of Presen t illness Narrative This note was created using [employer]. Subjective Tammy Avila is a 35 year old female. HPI Presents with right index finger pain over the past couple of days. Denies any injury or trauma. She states the left neck finger was bothering her as well but that improved. No history of gout. Denies history of RA. She has taken Tylenol for pain. No fever or chills. Review of Systems Musculoskeletal: Right finger pain All other systems reviewed and are negative. No past medical history on file. Current Outpatient Medications Medication Sig Dispense Refill predniSONE (DELTASONE) 10 mg tablet Take 4 tabs daily for 3 days, then 2 tabs daily for 3 days, then 1 tab daily for 3 days with food. 21 tablet 0 omeprazole (PRILOSEC) 40 mg capsule Take 1 capsule by mouth once daily. 30 capsule 2 peg 3350-Electrolytes (GOLYTELY) 236-22.74-6.74 -5.86 gram suspension Refer to printed prep instructions from your provider. 4000 mL 0 No current facility-administered medications for this visit. No past surgical history on file. No family history on file. Social History Tobacco Use Smoking status: Current Every Day Smoker Smokeless tobacco: Never Used Substance Use Topics Alcohol use: Yes Drug use: Yes Comment: medical card Objective BP 122/68 Pulse (!) 54 Temp 36.7 C (98 F) Resp 18 Wt 84.6 kg (186 lb 6.4 oz) LMP 05/19/2021 SpO2 97% Physical Exam Vitals reviewed. Constitutional: Appearance: Normal appearance. HENT: Head: Normocephalic and atraumatic. Musculoskeletal: Comments: Exam of the right index finger reveals swelling and erythema to the proximal phalanx. She has pain with range of motion of the MCP and proximal interphalangeal joint. Some crepitus noted on flexion extension of the tendons. No open wounds. No sign of septic joint. Skin: General: Skin is warm and dry. Neurological: Mental Status: She is alert. Assessment and Plan ASSESSMENT/PLAN: 1. Finger pain, right - ICD9: 729.5, ICD10: M79.644 X-ray showed no acute osseous abnormalities read by radiology. I will treat with prednisone. She is supposed to have a colonoscopy in 2 days, recommended she call their office as she likely should not take the steroid until after the procedure. She was placed in a finger splint with adrianne tape. Likely tendinitis versus possible gout. Discussed red flag symptoms to be seen in the ER. Patient agreeable with plan. - XR DIGIT GENERAL 3V FRONTAL/LAT/OBL RIGHT Tiera Waddell PA-C documented in this encounter [facility] 05-21-2021 Miscellaneous Notes Phone call placed patient advised (see prior provider encounter) Patient verbalized understanding, agreed with plan of care. Katelyn Corcoran LPN Let patient know xrays were read by radiology as no acute bony abnormality. Continue splint as needed, ice, rest. Follow up with ortho/pcp as needed if not getting better. documented in this encounter [facility] Heartburn History of Helicobacter pylori infection Personal history of other infectious and parasitic disease Epigastric pain Abdominal pain, epigastric Nausea Nausea alone Dark stools Nonspecific abnormal finding in stool contents Loose stools Abnormal feces [facility] Diagnosis Nausea- Primary Nausea alone Epigastric pain Abdominal pain, epigastric [facility] Diagnosis H. pylori infection- Primary Helicobacter pylori (H. pylori) [facility] Diagnosis Progressive peripheral pterygium of right eye- Primary Peripheral pterygium, progressive Dry eye syndrome of both eyes [facility] Diagnosis Multiple joint pain- Primary Pain in joint, multiple sites Chronic midline low back pain with bilateral sciatica Neck pain Cervicalgia Positive JONY (antinuclear antibody) Other and unspecified nonspecific immunological findings Numbness and tingling of both feet [facility] Diagnosis Chronic bilateral low back pain with right-sided sciatica- Primary Pain in both upper extremities Neck pain Cervicalgia Imbalance Abnormality of gait Bladder dysfunction Other functional disorder of bladder Impaired dexterity [facility] Diagnosis Chronic bilateral low back pain with right-sided sciatica Pain in both upper extremities Neck pain Cervicalgia Imbalance Abnormality of gait Impaired dexterity Acute back pain with sciatica, right Cervicalgia [facility]* Diagnosis Cervical myelopathy (HCC)- Primary Cervical spondylosis with myelopathy Cervical stenosis of spine Spinal stenosis in cervical region [facility] Diagnosis Pre-operative examination- Primary Preoperative examination, unspecified Atrial paroxysmal tachycardia (HCC) Paroxysmal supraventricular tachycardia Anxiety attack Panic disorder without agoraphobia Current smoker Tobacco use disorder Gastroesophageal reflux disease, unspecified whether esophagitis present Class 1 obesity due to excess calories without serious comorbidity with body mass index (BMI) of 30.0 to 30.9 in adult Cervical myelopathy (HCC) Cervical spondylosis with myelopathy [facility] Diagnosis Presence of surgical incision- Primary [facility] Diagnosis Cervical myelopathy (HCC)- Primary Cervical spondylosis with myelopathy [facility]* Diagnosis Fibromyalgia- Primary Mylagia and myositis, unspecified Cervical myelopathy (HCC) Cervical spondylosis with myelopathy [facility] Diagnosis Cervical stenosis of spine- Primary Spinal stenosis in cervical region [facility] Diagnosis Cervical myelopathy (HCC) Cervical spondylosis with myelopathy [facility]* Diagnosis Cervical myelopathy (HCC) Cervical spondylosis with myelopathy [facility] Visit Details Visit Type -PT SOC Discipline -Physical Therapy Problems Problem Description Start Date Status Goals Interve ntions Medication Education Disciplines: Skilled Services 07/07/2022 Active 1 goal linked to scheduled/documen jake intervention 1 goal intervention scheduled/document ed in this visit Sepsis Disciplines: Skilled Services 07/07/2022 Active 1 goal linked to scheduled/documen jake intervention 1 goal intervention scheduled/document ed in this visit Physician Specific Parameters Disciplines: Skilled Services 07/07/2022 Active 1 goal linked to scheduled/documen jake intervention 1 goal intervention scheduled/document ed in this visit Risk for Falls Disciplines: Skilled Services 07/07/2022 Active 1 goal linked to scheduled/documen jake intervention 1 goal intervention scheduled/document ed in this visit Pain Disciplines: Skilled Services 07/07/2022 Active 1 goal linked to scheduled/documen jake intervention 1 goal intervention scheduled/document ed in this visit High Risk Medications Disciplines: Skilled Services 07/07/2022 Active 1 goal linked to scheduled/documen jake intervention 1 goal intervention scheduled/document ed in this visit Discharge Disciplines: Skilled Services 07/07/2022 Active 1 goal linked to scheduled/documen jake intervention 1 goal intervention scheduled/document ed in this visit Advance Directives Disciplines: Skilled Services 07/07/2022 Resolved on 07/07/2022 1 goal linked to scheduled/documen jake intervention 1 goal intervention scheduled/document ed in this visit PT Impaired Aerobic Capacity Disciplines: PT 07/07/2022 Active 1 goal linked to scheduled/documen jake intervention 1 goal intervention scheduled/document ed in this visit PT Impaired mobility Disciplines: PT 07/07/2022 Active 1 goal linked to scheduled/documen jake intervention 1 goal intervention scheduled/document ed in this visit PT Impaired gait Disciplines: PT 07/07/2022 Active 1 goal linked to scheduled/documen jake intervention 1 goal intervention scheduled/document ed in this visit PT Impaired balance Disciplines: PT 07/07/2022 Active 1 goal linked to scheduled/documen jake intervention 1 goal intervention scheduled/document ed in this visit PT Orthopedic Condition Disciplines: PT 07/07/2022 Active 1 goal linked to scheduled/documen jake intervention 1 goal intervention scheduled/document ed in this visit PT Learning Assessment Disciplines: PT 07/07/2022 Active 1 goal linked to scheduled/documen jake intervention 1 goal intervention scheduled/document ed in this visit PT Wound Management Disciplines: PT Active 1 goal linked to scheduled/documen jake intervention 1 goal intervention scheduled/document ed in this visit Goals Goal Associated Problem Outcome Goal Met? Visit Notes Patient/caregiver will demonstrate ability to obtain, store, identify and administer ordered medications, keep accurate medication list in home, and adhere to medication schedule Description: Patient/caregiver will demonstrate ability to obtain, store, identify and administer ordered medications, keep accurate medication list in home, and adhere to medication schedule by 09/04/22. Medication Education No Patient/caregiver will be able to identify and report symptoms of sepsis Description: Patient/caregiver will be able to identify signs/symptoms of sepsis infection and will verbalize actions to take if suspected by 09/04/22. Sepsis No Patient to maintain parameters within physician-specified ranges throughout certification period Physician Specific Parameters No Manage Risk for falls Description: Patient/caregiver will verbalize knowledge of individualized fall prevention strategies by 09/04/22. Risk for Falls No Manage Pain Description: Patient/caregiver will verbalize knowledge and understanding of appropriate techniques to control pain, including pain medication and non-pharmacological techniques. Patient will verbalize or demonstrate an acceptable level of pain as evidenced by a pain score of 2/10 and improvement in ability to perform activities of daily living to be achieved by 09/04/22. Pain No Patient/caregiver will teach back high risk medication side effect and precaution education High Risk Medications No Manage discharge planning Description: Patient/caregiver will verbalize understanding of ongoing discharge plan provided related to disease management, arrangements for outpatient and/or community services, obtaining medications, supplies, and DME, as needed throughout certification period. Discharge No Patient/caregiver will make healthcare providers aware of and any changes to Advance Directives throughout certification period Advance Directives Completed Yes Improved Aerobic Capacity Description: LTG: Patient will demonstrate improved aerobic capacity to meet functional goals as evidenced by Rate of Percieved Exertion (RPE) of 2/10 [address] stair negotiation, to be achieved by 07/26/22. PT Impaired Aerobic Capacity No Improved Transfers Description: STG: Patient will demonstrate safe transfers to/from bed, chair and couch independently, to be achieved by 07/19/22. LTG: Patient will demonstrate safe transfers to/from car independently, to be achieved by 07/26/22. PT Impaired mobility No Improved Gait Description: LTG: Patient will demonstrate improved gait ability as evidenced by ambulation 250 feet without device, to return to safe community ambulation, in order to safely walk into medical appointments, to be achieved by 07/26/22. PT Impaired gait No Improved Balance Description: LTG: Patient will demonstrate improved standing balance to meet functional goals as evidenced by TUG score of 14 sec to be achieved by 07/26/22. PT Impaired balance No Manage Orthopedic Condition Description: Improve patient and/or caregiver understanding of post surgical and/or non-surgical orthopedic intervention management as evidenced by patient and/or caregiver able to verbalize, demonstrate, and teach back instruction, to be achieved by 07/26/22. PT Orthopedic Condition No Demonstrate understanding of education Description: Patient and/or caregiver will understand educational instruction to be achieved by 07/26/22. PT Learning Assessment No Verbalize and/or demonstrate understanding of wound management Description: Improve patient and/or caregiver understanding of post surgical and/or non-surgical wound management as evidenced by patient and/or caregiver able to verbalize, demonstrate, and teach back instruction, to be achieved by 07/26/22. PT Wound Management No Interventions Intervention Associated Problem/Goal Status Variance Visit Notes Medication Education Description: Evaluate/instruct patient/caregiver on obtaining, storing, identifying and administering ordered medications as well as keeping accurate medication list in the home and adhereing to medication schedule Problem:Medication Education Goal:Patient/caregive r will demonstrate ability to obtain, store, identify and administer ordered medications, keep accurate medication list in home, and adhere to medication schedule Completed Patient instructed on importance of keeping accurate medication list in home, adhering to medication schedule and proper storage of medications. Risk of Sepsis Description: Patient is at risk for sepsis. Monitor closely for s/s of sepsis. Problem:Sepsis Goal:Patient/caregive r will be able to identify and report symptoms of sepsis Completed SPO2 Description: Notify Dr. Dr Roy if pulse ox is <92% at rest. Problem:Physician Specific Parameters Goal:Patient to maintain parameters within physician-specified ranges throughout certification period Completed Instruct on individual fall risk factors and strategies to prevent falls and injuries caused by falls. Problem:Risk for Falls Goal:Manage Risk for falls Completed PT: Patient instructed on Eliminating Environmental Hazards: Keep pathways clear, Move furniture from pathways, Keep rooms and walkways well lit, Wear supportive shoes or non-skid socks and Keep frequently used items within reach Instruct on pain and instruct on strategies to control pain Problem:Pain Goal:Manage Pain Completed Patient and caregiver instructed on techniques to control pain including Pharmacological measures and Non-Pharmacological measures; rest, positioning/elevation, mobility/therapeutic exercise, use ofDME/assistive devices and use of thermal modalities, apply ice to affected area for the following prescribed frequency: 4 times a day x 20 min. Opioids- educated on high risk medication Problem:High Risk Medications Goal:Patient/caregive r will teach back high risk medication side effect and precaution education Completed patient educated on taking medication(s) as prescribed by provider. Do not stop medication or alter doses without speaking with your provider. Discuss medication effectiveness or side effect concerns with your provider and home care team. Only take opioids as prescribed, do not share your medications, and take proper precautions in storing and properly disposing of opioids once no longer needed. Possible side effects of opioid medication including sedation, decreased rate of breathing, and constipation. Report over sedation to prescribing provider and practice deep breathing techniques every hour while awake. Prevent constipation by increasing water and fiber intake, increasing activity as tolerated, and use stool softener(s) as prescribed. Instruct on ongoing discharge plan Problem:Discharge Goal:Manage discharge planning Completed Ongoing Discharge plan: Discharge plan discussed with patient including frequency and duration for home PT and plan for transition to: live independently at home without ongoing services. Determine patient's Advance Directive Status Description: Patient does not have advance directives. Patient/Caregiver declined Advance Directive information. Problem:Advance Directives Goal:Patient/caregive r will make healthcare providers aware of and any changes to Advance Directives throughout certification period Completed Discussed Advance Directives with Patient and/or Caregiver. Referred patient to Home Care handbook for further information on Healthcare DPOA & Living Will. Physical Therapy Aerobic Capacity Training Problem:PT Impaired Aerobic Capacity Goal:Improved Aerobic Capacity Completed patient instructed on utilization of the Rate of Percieved Exertion (RPE) scale, to not exceed 3-6/10 indicating moderate to heavy intensity of activity. Developed, implemented, and instructed patient on physical therapy interventions completing 30 minutes of paced and physiologically monitored activity. Reported 5/10 with HEP today. Physical Therapy Transfer Training Problem:PT Impaired mobility Goal:Improved Transfers Completed Transfer training and instruction to patient on safe transfers to and from chair with stand by assist and verbal cues for hand placement and positioning to edge of surface prior to standing. Physical Therapy Gait Training Problem:PT Impaired gait Goal:Improved Gait Completed Gait training and instruction to patient on safe ambulation without a device for 30 feet with supervision, with verbal cues for corrections of gait deviations including even steps and heel to toe gait. Physical Therapy Balance Training Problem:PT Impaired balance Goal:Improved Balance Completed Developed, implemented, and instructed patient on standing balance exercises including TUG of 25 sec. Instruct on self-management of post surgical and/or non-surgical orthopedic intervention Problem:PT Orthopedic Condition Goal:Manage Orthopedic Condition Completed patient instructed on managagement of orthopedic condition, incision care, measures to avoid skin breakdown, staying well hydrated, eating foods with high protein, signs and symptoms of infection, signs and symptoms of DVT/PE, follow provider guidance for showering , instructed on when to call provider and instructed on when to call 911. Instruct and educate on knowledge deficits Problem:PT Learning Assessment Goal:Demonstrate understanding of education Completed patient verbalize and/or demonstrate understanding of physical therapy education including orthopedic condition management, surgical precautions, pain management, nutrition, fall prevention strategies, home safety, integumentary and incision/wound care management, infection control precautions, functional activity and home exercise program. Education methods include: verbal cues. Further education required to improve knowledge and compliance with orthopedic condition management, surgical precautions, pain management, nutrition, fall prevention strategies, home safety, integumentary and incision/wound care management, infection control precautions, functional activity and home exercise program. Instruct and educate on wound management Description: Wound Care Order: Incision location: anterior neck Wound type (etiology): incision Measure wound/incision at least weekly. Problem:PT Wound Management Goal:Verbalize and/or demonstrate understanding of wound management Completed Instructed patient on wound care, signs and symptoms of infection, follow physician guidance for if or when wound can get wet, instructed on when to call provider and instructed on when to call 911. 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 -Physical Therapy Problems Problem Description Start Date Status Goals Interve ntions Medication Education Disciplines: Skilled Services 07/07/2022 Active 1 goal linked to scheduled/document ed intervention 1 goal intervention scheduled/document ed in this visit Sepsis Disciplines: Skilled Services 07/07/2022 Active 1 goal linked to scheduled/document ed intervention 1 goal intervention scheduled/document ed in this visit Physician Specific Parameters Disciplines: Skilled Services 07/07/2022 Active 1 goal linked to scheduled/document ed intervention 1 goal intervention scheduled/document ed in this visit Risk for Falls Disciplines: Skilled Services 07/07/2022 Active 1 goal linked to scheduled/document ed intervention 1 goal intervention scheduled/document ed in this visit Pain Disciplines: Skilled Services 07/07/2022 Active 1 goal linked to scheduled/document ed intervention 1 goal intervention scheduled/document ed in this visit Discharge Disciplines: Skilled Services 07/07/2022 Active 1 goal linked to scheduled/document ed intervention 1 goal intervention scheduled/document ed in this visit PT Impaired Aerobic Capacity Disciplines: PT 07/07/2022 Active 1 goal linked to scheduled/document ed intervention 1 goal intervention scheduled/document ed in this visit PT Impaired muscle performance and/or ROM Disciplines: PT 07/07/2022 Active 1 goal linked to scheduled/document ed intervention 1 goal intervention scheduled/document ed in this visit PT Impaired mobility Disciplines: PT 07/07/2022 Active 1 goal linked to scheduled/document ed intervention 1 goal intervention scheduled/document ed in this visit PT Impaired gait Disciplines: PT 07/07/2022 Active 1 goal linked to scheduled/document ed intervention 1 goal intervention scheduled/document ed in this visit PT Impaired balance Disciplines: PT 07/07/2022 Active 1 goal linked to scheduled/document ed intervention 1 goal intervention scheduled/document ed in this visit PT Orthopedic Condition Disciplines: PT 07/07/2022 Active 1 goal linked to scheduled/document ed intervention 1 goal intervention scheduled/document ed in this visit PT Learning Assessment Disciplines: PT 07/07/2022 Active 1 goal linked to scheduled/document ed intervention 1 goal intervention scheduled/document ed in this visit PT Wound Management Disciplines: PT Active 1 goal linked to scheduled/document ed intervention 1 goal intervention scheduled/document ed in this visit Goals Goal Associated Problem Outcome Goal Met? Visit Notes Patient/caregiver will demonstrate ability to obtain, store, identify and administer ordered medications, keep accurate medication list in home, and adhere to medication schedule Description: Patient/caregiver will demonstrate ability to obtain, store, identify and administer ordered medications, keep accurate medication list in home, and adhere to medication schedule by 09/04/22. Medication Education No Patient/caregiver will be able to identify and report symptoms of sepsis Description: Patient/caregiver will be able to identify signs/symptoms of sepsis infection and will verbalize actions to take if suspected by 09/04/22. Sepsis No Patient to maintain parameters within physician-specified ranges throughout certification period Physician Specific Parameters No Manage Risk for falls Description: Patient/caregiver will verbalize knowledge of individualized fall prevention strategies by 09/04/22. Risk for Falls No Manage Pain Description: Patient/caregiver will verbalize knowledge and understanding of appropriate techniques to control pain, including pain medication and non-pharmacological techniques. Patient will verbalize or demonstrate an acceptable level of pain as evidenced by a pain score of 2/10 and improvement in ability to perform activities of daily living to be achieved by 09/04/22. Pain No Manage discharge planning Description: Patient/caregiver will verbalize understanding of ongoing discharge plan provided related to disease management, arrangements for outpatient and/or community services, obtaining medications, supplies, and DME, as needed throughout certification period. Discharge No Improved Aerobic Capacity Description: LTG: Patient will demonstrate improved aerobic capacity to meet functional goals as evidenced by Rate of Percieved Exertion (RPE) of 2/10 during stair negotiation, to be achieved by 07/26/22. PT Impaired Aerobic Capacity No Improved Muscle Performance and/or ROM Description: LTG: Patient will demonstrate improved muscle performance to meet functional goals as evidenced by ability to tolerate 15 reps of each ex in HEP, to be achieved by 07/26/22 LTG: Patient and/or caregiver will verbalize/demonstrate independence with home exercise program, to improve functional mobility, to be achieved by 07/26/22 PT Impaired muscle performance and/or ROM No Improved Transfers Description: STG: Patient will demonstrate safe transfers to/from bed, chair and couch independently, to be achieved by 07/19/22. LTG: Patient will demonstrate safe transfers to/from car independently, to be achieved by 07/26/22. PT Impaired mobility No Improved Gait Description: LTG: Patient will demonstrate improved gait ability as evidenced by ambulation 250 feet without device, to return to safe community ambulation, in order to safely walk into medical appointments, to be achieved by 07/26/22. PT Impaired gait No Improved Balance Description: LTG: Patient will demonstrate improved standing balance to meet functional goals as evidenced by TUG score of 14 sec to be achieved by 07/26/22. PT Impaired balance No Manage Orthopedic Condition Description: Improve patient and/or caregiver understanding of post surgical and/or non-surgical orthopedic intervention management as evidenced by patient and/or caregiver able to verbalize, demonstrate, and teach back instruction, to be achieved by 07/26/22. PT Orthopedic Condition No Demonstrate understanding of education Description: Patient and/or caregiver will understand educational instruction to be achieved by 07/26/22. PT Learning Assessment No Verbalize and/or demonstrate understanding of wound management Description: Improve patient and/or caregiver understanding of post surgical and/or non-surgical wound management as evidenced by patient and/or caregiver able to verbalize, demonstrate, and teach back instruction, to be achieved by 07/26/22. PT Wound Management No Interventions Intervention Associated Problem/Goal Status Variance Visit Notes Medication Education Description: Evaluate/instruct patient/caregiver on obtaining, storing, identifying and administering ordered medications as well as keeping accurate medication list in the home and adhereing to medication schedule Problem:Medication Education Goal:Patient/caregive r will demonstrate ability to obtain, store, identify and administer ordered medications, keep accurate medication list in home, and adhere to medication schedule Completed Patient instructed on importance of keeping accurate medication list in home and adhering to medication schedule. Risk of Sepsis Description: Patient is at risk for sepsis. Monitor closely for s/s of sepsis. Problem:Sepsis Goal:Patient/caregive r will be able to identify and report symptoms of sepsis Completed SPO2 Description: Notify Dr. Dr Roy if pulse ox is <92% at rest. Problem:Physician Specific Parameters Goal:Patient to maintain parameters within physician-specified ranges throughout certification period Completed Instruct on individual fall risk factors and strategies to prevent falls and injuries caused by falls. Problem:Risk for Falls Goal:Manage Risk for falls Completed PT: Patient instructed on Eliminating Environmental Hazards: Keep pathways clear and Keep rooms and walkways well lit Instruct on pain and instruct on strategies to control pain Problem:Pain Goal:Manage Pain Completed patient instructed on techniques to control pain including Pharmacological measures and Non-Pharmacological measures; use of thermal modalities, apply ice to affected area for the following prescribed frequency: prn. Instruct on ongoing discharge plan Problem:Discharge Goal:Manage discharge planning Completed Ongoing Discharge plan: Discharge plan discussed with patient including frequency and duration for home PT and plan for transition to: live independently at home without ongoing services. Physical Therapy Aerobic Capacity Training Problem:PT Impaired Aerobic Capacity Goal:Improved Aerobic Capacity Completed patient instructed on utilization of the Rate of Percieved Exertion (RPE) scale, to not exceed 3-6/10 indicating moderate to heavy intensity of activity. Developed, implemented, and instructed patient on physical therapy interventions completing 15-20 minutes of continuous activity. Physical Therapy Therapeutic Exercises Problem:PT Impaired muscle performance and/or ROM Goal:Improved Muscle Performance and/or ROM Completed patient instructed on strengthening exercises including standing heel raises, hip abd and flexion, ham curls and 1/2 squats x's 20 eah. step ups x's 10 each with verbal cues for posture and pace. patient instructed to perform home exercise program twice a day which included above ex. Physical Therapy Transfer Training Problem:PT Impaired mobility Goal:Improved Transfers Completed Transfer training and instruction to patient on safe transfers to and from chair with independent Physical Therapy Gait Training Problem:PT Impaired gait Goal:Improved Gait Completed Gait training and instruction to patient on safe ambulation with no device for household disrances with independent, Physical Therapy Balance Training Problem:PT Impaired balance Goal:Improved Balance Completed Developed, implemented, and instructed patient on standing balance exercises including beba standing ex and lateral stepping 6feet xs 4laps. Instruct on orthopedic precautions and weight bearing restrictions Description: Orthopedic precautions including Lifting restrictions to 5-10lbs for 2weeks Problem:PT Orthopedic Condition Goal:Manage Orthopedic Condition Completed patient instructed on orthopedic precautions. Instruct and educate on knowledge deficits Problem:PT Learning Assessment Goal:Demonstrate understanding of education Completed patient verbalize and/or demonstrate understanding of physical therapy education including surgical precautions, pain management, functional activity and home exercise program. Education methods include: verbal cues. Further education required to improve knowledge and compliance with home exercise program. Instruct and educate on wound management Description: Wound Care Order: Incision location: anterior neck Wound type (etiology): incision Measure wound/incision at least weekly. Problem:PT Wound Management Goal:Verbalize and/or demonstrate understanding of wound management Completed Instructed patient on signs and symptoms of infection, signs and symptoms of DVT/PE, instructed on when to call provider and instructed on when to call 911. [facility] Visit Details Visit Type -OT DISC DC W VIS IT Discipline -Occupational Therapy Problems Problem Description Start Date Status Goals Interve ntions Medication Education Disciplines: Skilled Services 07/07/2022 Active 1 goal linked to scheduled/documen jake intervention 1 goal intervention scheduled/document ed in this visit Sepsis Disciplines: Skilled Services 07/07/2022 Active 1 goal linked to scheduled/documen jake intervention 1 goal intervention scheduled/document ed in this visit Physician Specific Parameters Disciplines: Skilled Services 07/07/2022 Active 1 goal linked to scheduled/documen jake intervention 1 goal intervention scheduled/document ed in this visit Risk for Falls Disciplines: Skilled Services 07/07/2022 Active 1 goal linked to scheduled/documen jake intervention 1 goal intervention scheduled/document ed in this visit Pain Disciplines: Skilled Services 07/07/2022 Active 1 goal linked to scheduled/documen jake intervention 1 goal intervention scheduled/document ed in this visit Discharge Disciplines: Skilled Services 07/07/2022 Active 1 goal linked to scheduled/documen jake intervention 1 goal intervention scheduled/document ed in this visit OT Learning Assessment Disciplines: OT 07/08/2022 Resolved on 07/22/2022 1 goal linked to scheduled/documen jake intervention 1 goal intervention scheduled/document ed in this visit OT ADLs/IADLs Disciplines: OT 07/08/2022 Resolved on 07/22/2022 1 goal linked to scheduled/documen jake intervention 1 goal intervention scheduled/document ed in this visit OT Aerobic Capacity for Functional Activity Disciplines: OT 07/08/2022 Resolved on 07/22/2022 1 goal linked to scheduled/documen jake intervention 1 goal intervention scheduled/document ed in this visit OT Upper Body Strength and/or ROM Disciplines: OT 07/08/2022 Resolved on 07/22/2022 1 goal linked to scheduled/documen jake intervention 1 goal intervention scheduled/document ed in this visit OT Functional Transfers Disciplines: OT 07/08/2022 Resolved on 07/22/2022 1 goal linked to scheduled/documen jake intervention 1 goal intervention scheduled/document ed in this visit OT Orthopedic Post Surgical and/or Non Surgical Condition Disciplines: OT 07/08/2022 Resolved on 07/22/2022 1 goal linked to scheduled/documen jake intervention 2 goal interventions scheduled/document ed in this visit Goals Goal Associated Problem Outcome Goal Met? Visit Notes Patient/caregiver will demonstrate ability to obtain, store, identify and administer ordered medications, keep accurate medication list in home, and adhere to medication schedule Description: Patient/caregiver will demonstrate ability to obtain, store, identify and administer ordered medications, keep accurate medication list in home, and adhere to medication schedule by 09/04/22. Medication Education No Patient/caregiver will be able to identify and report symptoms of sepsis Description: Patient/caregiver will be able to identify signs/symptoms of sepsis infection and will verbalize actions to take if suspected by 09/04/22. Sepsis No Patient to maintain parameters within physician-specified ranges throughout certification period Physician Specific Parameters No Manage Risk for falls Description: Patient/caregiver will verbalize knowledge of individualized fall prevention strategies by 09/04/22. Risk for Falls No Manage Pain Description: Patient/caregiver will verbalize knowledge and understanding of appropriate techniques to control pain, including pain medication and non-pharmacological techniques. Patient will verbalize or demonstrate an acceptable level of pain as evidenced by a pain score of 2/10 and improvement in ability to perform activities of daily living to be achieved by 09/04/22. Pain No Manage discharge planning Description: Patient/caregiver will verbalize understanding of ongoing discharge plan provided related to disease management, arrangements for outpatient and/or community services, obtaining medications, supplies, and DME, as needed throughout certification period. Discharge No Demonstrate understanding of education Description: Patient and/or caregiver will understand educational instruction to be achieved by 07/26/22. OT Learning Assessment Completed Yes met Improved ADLs/IADLs performance Description: Patient will verbalize understanding of instructions and demonstrate improved performance of grooming, upper body dressing, lower body dressing, bathing and toileting to independence as evidenced by improved Henry ADL Index score to at least 90/100, to be achieved by 07/26/22. Patient will verbalize understanding of instructions and demonstrate improved performance of light househodl tasks to independence as evidenced by improved Henry ADL Index score to at least 90/100, to be achieved by 07/26/22. OT ADLs/IADLs Completed Yes met Improved Aerobic Capacity Description: Patient will demonstrate improved aerobic capacity to meet functional goals as evidenced by Rate of Perceived Exertion (RPE) <3/10 during ADLs, to be achieved by 07/26/22. OT Aerobic Capacity for Functional Activity Completed Yes RPE Scores: 1 for ADLs, 5 for doing laundry & 9 for climbing steps. Goal met. Improved Strength and/or ROM Description: Patient will verbalize/demonstrate independence with home exercise program, to improve functional performance, to be achieved by 07/26/22. OT Upper Body Strength and/or ROM Completed Yes met Improved Functional Transfers Description: STG: Patient will demonstrate safe transfers to/from toilet with independent assistance and no cues without use of DME to be achieved by 07/19/22. STG: Patient will demonstrate safe transfers to/from shower/tub with supervision assistance and no cues with use of DME to be achieved by 07/19/22. LTG: Patient will demonstrate safe transfers to/from shower/tub with independent assistance and no cues with use of DME to be achieved by 07/26/22. OT Functional Transfers Completed Yes met Manage Orthopedic Condition Description: Improve patient and/or caregiver understanding of post surgical and/or non-surgical orthopedic intervention management as evidenced by patient and/or caregiver able to verbalize, demonstrate, and teach back instruction with a minimum of two strategies. To be achieved by 07/26/22. OT Orthopedic Post Surgical and/or Non Surgical Condition Completed Yes met Interventions Intervention Associated Problem/Goal Status Variance Visit Notes Medication Education Description: Evaluate/instruct patient/caregiver on obtaining, storing, identifying and administering ordered medications as well as keeping accurate medication list in the home and adhereing to medication schedule Problem:Medication Education Goal:Patient/caregive r will demonstrate ability to obtain, store, identify and administer ordered medications, keep accurate medication list in home, and adhere to medication schedule Completed Patient instructed on adhering to medication schedule. Risk of Sepsis Description: Patient is at risk for sepsis. Monitor closely for s/s of sepsis. Problem:Sepsis Goal:Patient/caregive r will be able to identify and report symptoms of sepsis Completed SPO2 Description: Notify Dr. Dr Roy if pulse ox is <92% at rest. Problem:Physician Specific Parameters Goal:Patient to maintain parameters within physician-specified ranges throughout certification period Completed Instruct on individual fall risk factors and strategies to prevent falls and injuries caused by falls. Problem:Risk for Falls Goal:Manage Risk for falls Completed OT: Patient instructed on wearing supportive footwear when out & about. Instruct on pain and instruct on strategies to control pain Problem:Pain Goal:Manage Pain Completed Patient instructed on techniques to control pain including Pharmacological measures and Non-Pharmacological measures; rest, positioning/elevation, mobility/therapeutic exercise and use of thermal modalities, apply ice to affected area for the following prescribed frequency: Up to 20 minutes at a time, as needed, several times a day. Instruct on ongoing discharge plan Problem:Discharge Goal:Manage discharge planning Completed Ongoing Discharge plan: Discharge plan discussed with patient including frequency and duration for home OT, including OT Discipline Discharge today, and plan for transition to: live independently at home without ongoing services. Instruct and educate on knowledge deficits Problem:OT Learning Assessment Goal:Demonstrate understanding of education Completed Education methods include: verbal cues. Patient/Caregiver provided with education to improve knowledge and compliance with fall prevention strategies, pain management, post surgical precautions, functional adl/iadl activity, functional transfers, home exercise program and discharge planning. ADL/IADLs Training Problem:OT ADLs/IADLs Goal:Improved ADLs/IADLs performance Completed Independent with bathing & showering, toileting, & grooming. Independent with Bathel Score increased to100/100. Independent with basic household tasks. Requires assist with heavier tasks, like laundry. Aerobic Capacity Training Problem:OT Aerobic Capacity for Functional Activity Goal:Improved Aerobic Capacity Completed ADLs 0/10; Stairs 9/10, Laundry 5/10 Therapeutic Exercises Problem:OT Upper Body Strength and/or ROM Goal:Improved Strength and/or ROM Completed Instructed to continue with putty exercises for hand strengthening. Transfer Training Problem:OT Functional Transfers Goal:Improved Functional Transfers Completed Instructed patient on safe transfers and proper techniques including instruction to have only mats with rubber backing outside of tub. Patient Independent with toilet and tub transfers. Instruct on orthopedic precautions and weight bearing restrictions Problem:OT Orthopedic Post Surgical and/or Non Surgical Condition Goal:Manage Orthopedic Condition Completed Instruct patient on orthopedic precautions including cervical precautions. Instruct on self-management of post surgical and/or non-surgical orthopedic intervention Problem:OT Orthopedic Post Surgical and/or Non Surgical Condition Goal:Manage Orthopedic Condition Completed Instruct patient on managagement of orthopedic condition, when to call doctor, when to call 911, signs and symptoms of infection and signs and symptoms of DVT and PE [facility] Visit Details Visit Type -PT AGENCY DC W V ISIT Discipline -Physical Therapy Problems Problem Description Start Date Status Goals Interve ntions Medication Education Disciplines: Skilled Services 07/07/2022 Resolved on 07/23/2022 1 goal linked to scheduled/document ed intervention 1 goal intervention scheduled/document ed in this visit Sepsis Disciplines: Skilled Services 07/07/2022 Resolved on 07/23/2022 1 goal linked to scheduled/document ed intervention 1 goal intervention scheduled/document ed in this visit Physician Specific Parameters Disciplines: Skilled Services 07/07/2022 Resolved on 07/23/2022 1 goal linked to scheduled/document ed intervention 1 goal intervention scheduled/document ed in this visit Risk for Falls Disciplines: Skilled Services 07/07/2022 Resolved on 07/23/2022 1 goal linked to scheduled/document ed intervention 1 goal intervention scheduled/document ed in this visit Pain Disciplines: Skilled Services 07/07/2022 Resolved on 07/23/2022 1 goal linked to scheduled/document ed intervention 1 goal intervention scheduled/document ed in this visit High Risk Medications Disciplines: Skilled Services 07/07/2022 Resolved on 07/23/2022 1 goal linked to scheduled/document ed intervention Discharge Disciplines: Skilled Services 07/07/2022 Resolved on 07/23/2022 1 goal linked to scheduled/document ed intervention 1 goal intervention scheduled/document ed in this visit PT Impaired Aerobic Capacity Disciplines: PT 07/07/2022 Resolved on 07/23/2022 1 goal linked to scheduled/document ed intervention 1 goal intervention scheduled/document ed in this visit PT Impaired muscle performance and/or ROM Disciplines: PT 07/07/2022 Resolved on 07/23/2022 1 goal linked to scheduled/document ed intervention 1 goal intervention scheduled/document ed in this visit PT Impaired mobility Disciplines: PT 07/07/2022 Resolved on 07/23/2022 2 goals linked to scheduled/document ed interventions 2 goal interventions scheduled/document ed in this visit PT Impaired gait Disciplines: PT 07/07/2022 Resolved on 07/23/2022 2 goals linked to scheduled/document ed interventions 2 goal interventions scheduled/document ed in this visit PT Impaired balance Disciplines: PT 07/07/2022 Resolved on 07/23/2022 1 goal linked to scheduled/document ed intervention PT Orthopedic Condition Disciplines: PT 07/07/2022 Resolved on 07/23/2022 1 goal linked to scheduled/document ed intervention 1 goal intervention scheduled/document ed in this visit PT Learning Assessment Disciplines: PT 07/07/2022 Resolved on 07/23/2022 1 goal linked to scheduled/document ed intervention 1 goal intervention scheduled/document ed in this visit PT Wound Management Disciplines: PT Resolved on 07/23/2022 1 goal linked to scheduled/document ed intervention Goals Goal Associated Problem Outcome Goal Met? Visit Notes Patient/caregiver will demonstrate ability to obtain, store, identify and administer ordered medications, keep accurate medication list in home, and adhere to medication schedule Description: Patient/caregiver will demonstrate ability to obtain, store, identify and administer ordered medications, keep accurate medication list in home, and adhere to medication schedule by 09/04/22. Medication Education Completed Yes met Patient/caregiver will be able to identify and report symptoms of sepsis Description: Patient/caregiver will be able to identify signs/symptoms of sepsis infection and will verbalize actions to take if suspected by 09/04/22. Sepsis Completed Yes met Patient to maintain parameters within physician-specified ranges throughout certification period Physician Specific Parameters Completed Yes met Manage Risk for falls Description: Patient/caregiver will verbalize knowledge of individualized fall prevention strategies by 09/04/22. Risk for Falls Completed Yes met Manage Pain Description: Patient/caregiver will verbalize knowledge and understanding of appropriate techniques to control pain, including pain medication and non-pharmacological techniques. Patient will verbalize or demonstrate an acceptable level of pain as evidenced by a pain score of 2/10 and improvement in ability to perform activities of daily living to be achieved by 09/04/22. Pain Completed Yes met Patient/caregiver will teach back high risk medication side effect and precaution education High Risk Medications Completed Yes met Manage discharge planning Description: Patient/caregiver will verbalize understanding of ongoing discharge plan provided related to disease management, arrangements for outpatient and/or community services, obtaining medications, supplies, and DME, as needed throughout certification period. Discharge Completed Yes met Improved Aerobic Capacity Description: LTG: Patient will demonstrate improved aerobic capacity to meet functional goals as evidenced by Rate of Percieved Exertion (RPE) of 2/10 during stair negotiation, to be achieved by 07/26/22. PT Impaired Aerobic Capacity Completed Yes met Improved Muscle Performance and/or ROM Description: LTG: Patient will demonstrate improved muscle performance to meet functional goals as evidenced by ability to tolerate 15 reps of each ex in HEP, to be achieved by 07/26/22 LTG: Patient and/or caregiver will verbalize/demonstrate independence with home exercise program, to improve functional mobility, to be achieved by 07/26/22 PT Impaired muscle performance and/or ROM Completed Yes met Improved Transfers Description: STG: Patient will demonstrate safe transfers to/from bed, chair and couch independently, to be achieved by 07/19/22. LTG: Patient will demonstrate safe transfers to/from car independently, to be achieved by 07/26/22. PT Impaired mobility Completed Yes met Improved Bed Mobility Description: STG: Patient will demonstrate improved bed mobility independently to be achieved by 07/19/22. PT Impaired mobility Completed Yes met Improved Stair Climbing Description: LTG: Patient will demonstrate improved stair negotiation as evidenced by ascend/descend 4 steps independently, to safely exit home, to be achieved by 07/26/22. PT Impaired gait Completed Yes met Improved Gait Description: LTG: Patient will demonstrate improved gait ability as evidenced by ambulation 250 feet without device, to return to safe community ambulation, in order to safely walk into medical appointments, to be achieved by 07/26/22. PT Impaired gait Completed Yes met Improved Balance Description: LTG: Patient will demonstrate improved standing balance to meet functional goals as evidenced by TUG score of 14 sec to be achieved by 07/26/22. PT Impaired balance Completed Yes met Manage Orthopedic Condition Description: Improve patient and/or caregiver understanding of post surgical and/or non-surgical orthopedic intervention management as evidenced by patient and/or caregiver able to verbalize, demonstrate, and teach back instruction, to be achieved by 07/26/22. PT Orthopedic Condition Completed Yes met Demonstrate understanding of education Description: Patient and/or caregiver will understand educational instruction to be achieved by 07/26/22. PT Learning Assessment Completed Yes met Verbalize and/or demonstrate understanding of wound management Description: Improve patient and/or caregiver understanding of post surgical and/or non-surgical wound management as evidenced by patient and/or caregiver able to verbalize, demonstrate, and teach back instruction, to be achieved by 07/26/22. PT Wound Management Completed Yes met Interventions Intervention Associated Problem/Goal Status Variance Visit Notes Medication Education Description: Evaluate/instruct patient/caregiver on obtaining, storing, identifying and administering ordered medications as well as keeping accurate medication list in the home and adhereing to medication schedule Problem:Medication Education Goal:Patient/caregive r will demonstrate ability to obtain, store, identify and administer ordered medications, keep accurate medication list in home, and adhere to medication schedule Completed Patient instructed on adhering to medication schedule. Risk of Sepsis Description: Patient is at risk for sepsis. Monitor closely for s/s of sepsis. Problem:Sepsis Goal:Patient/caregive r will be able to identify and report symptoms of sepsis Completed SPO2 Description: Notify Dr. Dr Roy if pulse ox is <92% at rest. Problem:Physician Specific Parameters Goal:Patient to maintain parameters within physician-specified ranges throughout certification period Completed Instruct on individual fall risk factors and strategies to prevent falls and injuries caused by falls. Problem:Risk for Falls Goal:Manage Risk for falls Completed PT: Patient instructed on Eliminating Environmental Hazards: Keep pathways clear Instruct on pain and instruct on strategies to control pain Problem:Pain Goal:Manage Pain Completed patient instructed on techniques to control pain including use of ice . Instruct on final discharge plan and deliver discharge instructions Problem:Discharge Goal:Manage discharge planning Completed Delivered Discharge plan: Discharge plan discussed with patient for plan for transition to: live independently at home without ongoing services Physical Therapy Aerobic Capacity Training Problem:PT Impaired Aerobic Capacity Goal:Improved Aerobic Capacity Completed patient instructed on utilization of the Rate of Percieved Exertion (RPE) scale, to not exceed 3-6/10 indicating moderate to heavy intensity of activity. Developed, implemented, and instructed patient on physical therapy interventions completing 2 minutes of rapid walking and 8 steps activity. Physical Therapy Therapeutic Exercises Problem:PT Impaired muscle performance and/or ROM Goal:Improved Muscle Performance and/or ROM Completed Pt verbalized she can do 20 reps of exercises in her HEP and is compliant Physical Therapy Transfer Training Problem:PT Impaired mobility Goal:Improved Transfers Completed Pt is indep all surfaces Physical Therapy Bed Mobility Training Problem:PT Impaired mobility Goal:Improved Bed Mobility Completed Pt is indep Physical Therapy Stair Training Problem:PT Impaired gait Goal:Improved Stair Climbing Completed Pt is indep on 3 steps without rail, 8 steps with rail rteciprocal pattern Physical Therapy Gait Training Problem:PT Impaired gait Goal:Improved Gait Completed Pt is indep with rapid paced ambulation no device>300 feet Instruct on orthopedic precautions and weight bearing restrictions Description: Orthopedic precautions including Lifting restrictions to 5-10lbs for 2weeks Problem:PT Orthopedic Condition Goal:Manage Orthopedic Condition Completed patient instructed on orthopedic precautions, reinforced Instruct and educate on knowledge deficits Problem:PT Learning Assessment Goal:Demonstrate understanding of education Completed patient verbalize and/or demonstrate understanding of physical therapy education including surgical precautions, pain management, fall prevention strategies and home exercise program. Education methods include: verbal cues. [facility] Diagnostic Procedure Only (Urgent) - Closed Specialty Diagnoses / Procedures Referred By Amos trejo Referred To Contact XR IMAGING Diagnoses Finger pain, right Procedures XR DIGIT GENERAL 3V FRONTAL/LAT/OBL RIGHT RADEX FINGR MINIMUM 2 VIEWS Tiera Waddell, PA-C [address] [place] [address] Xr Imaging Referral ID Status Reason Start Date Expiration Date V isits Requested Visits Authorized [id number] Closed Auto-Generate d Referral 05/21/2021 06/20/2022 1 1 [facility] (narrative)* Outpatient Procedure (Routine) - Closed Specialty Diagnoses / Procedures Referred By Contac t Referred To Contact [facility] Diagnoses Heartburn History of Helicobacter pylori infection Epigastric pain Nausea Dark stools Loose stools Procedures EGD DIAGNOSTIC ESOPHAGOGASTRODUODENOSCO PY TRANSORAL DIAGNOSTIC Lauren Esquivel APRN.CNP [address] [place] [address] [facility] [address] [place] [address] Referral ID Status Reason Start Date Expiration Date V isits Requested Visits Authorized [id number] Closed Auto-Generate d Referral 04/10/2021 04/10/2022 1 1 [facility] for referral (narrative)* Diagnostic Procedure Only (Routine) - Closed Specialty Diagnoses / Procedures Referred By Contac t Referred To Contact XR IMAGING Diagnoses Multiple joint pain Chronic midline low back pain with bilateral sciatica Neck pain Procedures XR CERV OTHER 4V AP/LAT/OBL RADEX SPINE CERVICAL 4 OR 5 VIEWS Garcia Cuelalr MD [address] [place] [id number] Xr Imaging Referral ID Status Reason Start Date Expiration Date V isits Requested Visits Authorized [id number] Closed Auto-Generate d Referral 03/17/2022 04/16/2023 1 1 * Diagnostic Procedure Only (Routine) - Closed Specialty Diagnoses / Procedures Referred By Contac t Referred To Contact XR IMAGING Diagnoses Multiple joint pain Chronic midline low back pain with bilateral sciatica Neck pain Procedures XR LUMBAR GENERAL 3V AP/LAT/L5-S1 RADEX SPINE LUMBOSACRAL 2/3 VIEWS Garcia Cuellar MD [address] [place] [address], [place] [address] Xr Imaging Referral ID Status Reason Start Date Expiration Date V isits Requested Visits Authorized [id number] Closed Auto-Generate d Referral 03/17/2022 04/16/2023 1 1 [facility] referral (narrative)* Outpatient Procedure (Routine) - Closed Specialty Diagnoses / Procedures Referred By Contac t Referred To Contact [facility] Diagnoses Pre-operative examination Procedures ECG COMPLETE ECG ROUTINE ECG W/LEAST 12 LDS W/I&R Lianet Restrepo WATERWORKS OPERATOR.PHARMACY BENEFIT MANAGER [address] [place] [address] [facility] [place] [address] [place] [address] Referral ID Status Reason Start Date Expiration Date V isits Requested Visits Authorized [id number] Closed Auto-Generate d Referral 06/04/2022 06/04/2023 1 1 [facility] for referral (narrative)* Diagnostic Procedure Only (Routine) - Pending Review Specialty Diagnoses / Procedures Referred By Contac t Referred To Contact XR IMAGING Diagnoses Cervical myelopathy (HCC) Procedures XR CERV GENERAL 2V AP/LAT RADEX SPINE CERVICAL 2 OR 3 VIEWS eRyes Roy MD [address] [place] [address] Xr Imaging Referral ID Status Reason Start Date Expiration Date Visits Requested Visits Authorized [id number] Pending Review Auto-Generat ed Referral 11/21/2022 09/20/2023 1 1 [facility] for referral (narrative)* Diagnostic Procedure Only (Routine) - Closed Specialty Diagnoses / Procedures Referred By Contac t Referred To Contact XR IMAGING Diagnoses Fibromyalgia Cervical myelopathy (HCC) Procedures XR CERV GENERAL 2V AP/LAT RADEX SPINE CERVICAL 2 OR 3 VIEWS Garcia Cuellar MD [address] [place] [id number] Xr Imaging Referral ID Status Reason Start Date Expiration Date V isits Requested Visits Authorized [id number] Closed Auto-Generate d Referral 09/17/2022 10/17/2023 1 1 [facility] for referral (narrative)* Diagnostic Procedure Only (Routine) - Closed Specialty Diagnoses / Procedures Referred By Contac t Referred To Contact XR IMAGING Diagnoses Cervical myelopathy (HCC) Procedures XR CERV GENERAL 2V AP/LAT RADEX SPINE CERVICAL 2 OR 3 VIEWS Reyes Roy MD [address] [place] [address] Xr Imaging [facility] Referral ID Status Reason Start Date Expiration Date V isits Requested Visits Authorized [id number] Closed Auto-Generate d Referral 11/21/2022 09/20/2023 1 1 [facility] for visit Narrative* Outpatient Procedure (Routine) - Closed Specialty Diagnoses / Procedures Referred By Contac t Referred To Contact [facility] Diagnoses Heartburn History of Helicobacter pylori infection Epigastric pain Nausea Dark stools Loose stools Procedures COLONOSCOPY DIAGNOSTIC COLONOSCOPY FLX DX W/COLLJ SPEC WHEN PFRMD Lauren Esquivel APRN.PHARMACY BENEFIT MANAGER [address] [place] [address] [facility] [address] [place] [id number] Referral ID Status Reason Start Date Expiration Date V isits Requested Visits Authorized [id number] Closed Auto-Generate d Referral 04/10/2021 04/10/2022 1 1 [facility] for visit Narrative* Diagnostic Procedure Only (Routine) - Closed Specialty Diagnoses / Procedures Referred By Contac t Referred To Contact XR IMAGING Diagnoses Cervical myelopathy (HCC) Procedures XR CERV GENERAL 2V AP/LAT RADEX SPINE CERVICAL 2 OR 3 VIEWS Reyes Roy MD [address] [place] [address] [place] [address] Referral ID Status Reason Start Date Expiration Date V isits Requested Visits Authorized [id number] Closed Auto-Generate d Referral 11/21/2022 09/20/2023 1 1 [facility] Summary Purpose Family History No Family History Records FoundNo Family History Records FoundNo Family History Records Found Advance Directives Documents on File Type Date 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) 05/23/2021 9:59 AM Documents on File Type Date 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) 05/23/2021 9:59 AM Latest Code Status on File Code Status Date Activated Date Inactivated Comments Full Code 07/07/2022 12:52 PM Latest Code Status on File Code Status Date Activated Date Inactivated Comments Full Code 07/07/2022 12:52 PM Latest Code Status on File Code Status Date Activated Date Inactivated Comments Full Code 07/07/2022 12:52 PM Latest Code Status on File Code Status Date Activated Date Inactivated Comments Full Code 07/07/2022 12:52 PM Medications Administered Section Active Administered Medications - up to 3 most recent administrations Medication Order MAR Action Action Date Dose Rate Site PHENYLephrine 2.5 % 1 Drop (AK-DILATE, RYNE-SYNEPHRINE) 1 Drop, BOTH EYES, DIRECTED, Starting on Thu12/24/21 at 1000, Until Thu12/24/21 at 2158, Administer for dilation PROTECT FROM LIGHT Given 12/24/2021 9:48 AM EDT 1 Drop proparacaine 0.5 % 1 Drop (ALCAINE) 1 Drop, BOTH EYES, DIRECTED, Starting on Thu12/24/21 at 1000, Until Thu12/24/21 at 2158, Administer for pneumo tonometry, tonopen tonometry, or pachymetry. In the event of a proparacaine shortage, administer tetracaine 0.5% ophthalmic drops 1 drop in the left eye as directed for pneumo tonometry, tonopen tonometry, or pachymetry Given 12/24/2021 9:48 AM EDT 1 Drop tropicamide 1 % 1 Drop (MYDRIACYL) 1 Drop, BOTH EYES, DIRECTED, Starting on Thu12/24/21 at 1000, Until Thu12/24/21 at 2158, Administer for dilation Given 12/24/2021 9:48 AM EDT 1 Drop Reason for Referral Specialty Diagnoses / Procedures Referred By Contac t Referred To Contact [facility] Diagnoses Chronic bilateral low back pain with right-sided sciatica Bladder dysfunction Procedures MRI LUMBAR SPINE WO IVCON MRI SPINAL CANAL LUMBAR W/O CONTRAST MATERIAL Yovany Avery PA-C [address] [place] [address] Mr Imaging Referral ID Status Reason Start Date Expiration Date Visits Requested Visits Authorized [id number] Pending Review Auto-Generat ed Referral 04/23/2022 05/23/2023 1 1 Specialty Diagnoses / Procedures Referred By Contac t Referred To Contact [facility] Diagnoses Pain in both upper extremities Neck pain Imbalance Bladder dysfunction Impaired dexterity Procedures MRI CERVICAL SPINE WO IVCON MRI SPINAL CANAL CERVICAL W/O CONTRAST MATRL Yovany Avery PA-C [address] [place] [address] Mr Imaging Referral ID Status Reason Start Date Expiration Date Visits Requested Visits Authorized [id number] Pending Review Auto-Generat ed Referral 04/23/2022 05/23/2023 1 1 Specialty Diagnoses / Procedures Referred By Contac t Referred To Contact [facility] Diagnoses Chronic bilateral low back pain with right-sided sciatica Pain in both upper extremities Neck pain Imbalance Impaired dexterity Procedures CONSULT TO PHYSICAL THERAPY PHYSICAL THERAPY EVALUATION HIGH COMPLEX 45 MINS Yovany Avery PA-C [address] [place] [address] [facility] [place] [address] [place] [address] Referral ID Status Reason Start Date Expiration Date Visits Requested Visits Authorized [id number] Authorized Auto-Generat ed Referral 04/23/2022 07/23/2022 1 1 Specialty Diagnoses / Procedures Referred By Contac t Referred To Contact [facility] Diagnoses Chronic bilateral low back pain with right-sided sciatica Pain in both upper extremities Neck pain Imbalance Impaired dexterity Acute back pain with sciatica, right Cervicalgia Procedures PT REHAB FOLLOW UP ORDER THERAPEUTIC EXERCISES RE, EA 15 MIN. Pt [facility] [address] [place] [address] [facility] [place] [address] [place] [address] Referral ID Status Reason Start Date Expiration Date Visits Requested Visits Authorized [id number] Pending Review PCP Requested Referral Auto-Generate d Referral 04/29/2022 07/28/2022 1 1 Specialty Diagnoses / Procedures Referred By Contac t Referred To Contact CT IMAGING Diagnoses Cervical myelopathy (HCC) Procedures CT CERVICAL SPINE WO IVCON CT CERVICAL SPINE W/O CONTRAST MATERIAL Reyes Roy MD [address] [place] [address] [place] [address] Referral ID Status Reason Start Date Expiration Date V isits Requested Visits Authorized [id number] Closed Auto-Generate d Referral 06/04/2022 08/03/2022 1 1 Additional Source Comments INFORMATION SOURCE (unrecogn ized section and content) DATE CREATED AUTHOR AUTHOR'S ORGANIZ ATION 07/06/2022 [facility] DATE CREATED AUTHOR AUTHOR'S ORGANIZ ATION 11/27/2022 [facility] Source Comments (unrecognize d section and content) In the event this informatio n is protected by the Federal Confidentiality of Alcohol and Drug Abuse Patient Records regulations: The Federal rules restrict any use of the information to criminally investigate or prosecute any alcohol or drug abuse patient.[facility] the event this information is protected by the Federal Confidentiality of Alcohol and Drug Abuse Patient Records regulations: The Federal rules restrict any use of the information to criminally investigate or prosecute any alcohol or drug abuse patient.[facility] the event this information is protected by the Federal Confidentiality of Alcohol and Drug Abuse Patient Records regulations: The Federal rules restrict any use of the information to criminally investigate or prosecute any alcohol or drug abuse patient.[facility] the event this information is protected by the Federal Confidentiality of Alcohol and Drug Abuse Patient Records regulations: The Federal rules restrict any use of the information to criminally investigate or prosecute any alcohol or drug abuse patient.[facility] the event this information is protected by the Federal Confidentiality of Alcohol and Drug Abuse Patient Records regulations: The Federal rules restrict any use of the information to criminally investigate or prosecute any alcohol or drug abuse patient.[facility] the event this information is protected by the Federal Confidentiality of Alcohol and Drug Abuse Patient Records regulations: The Federal rules restrict any use of the information to criminally investigate or prosecute any alcohol or drug abuse patient.[facility] the event this information is protected by the Federal Confidentiality of Alcohol and Drug Abuse Patient Records regulations: The Federal rules restrict any use of the information to criminally investigate or prosecute any alcohol or drug abuse patient.[facility] the event this information is protected by the Federal Confidentiality of Alcohol and Drug Abuse Patient Records regulations: The Federal rules restrict any use of the information to criminally investigate or prosecute any alcohol or drug abuse patient.[facility] the event this information is protected by the Federal Confidentiality of Alcohol and Drug Abuse Patient Records regulations: The Federal rules restrict any use of the information to criminally investigate or prosecute any alcohol or drug abuse patient.[facility] the event this information is protected by the Federal Confidentiality of Alcohol and Drug Abuse Patient Records regulations: The Federal rules restrict any use of the information to criminally investigate or prosecute any alcohol or drug abuse patient.[facility] the event this information is protected by the Federal Confidentiality of Alcohol and Drug Abuse Patient Records regulations: The Federal rules restrict any use of the information to criminally investigate or prosecute any alcohol or drug abuse patient.[facility] the event this information is protected by the Federal Confidentiality of Alcohol and Drug Abuse Patient Records regulations: The Federal rules restrict any use of the information to criminally investigate or prosecute any alcohol or drug abuse patient.[facility] the event this information is protected by the Federal Confidentiality of Alcohol and Drug Abuse Patient Records regulations: The Federal rules restrict any use of the information to criminally investigate or prosecute any alcohol or drug abuse patient.[facility] the event this information is protected by the Federal Confidentiality of Alcohol and Drug Abuse Patient Records regulations: The Federal rules restrict any use of the information to criminally investigate or prosecute any alcohol or drug abuse patient.[facility] HospitalIn the event this information is protected by the Federal Confidentiality of Alcohol and Drug Abuse Patient Records regulations: The Federal rules restrict any use of the information to criminally investigate or prosecute any alcohol or drug abuse patient.[facility] HospitalIn the event this information is protected by the Federal Confidentiality of Alcohol and Drug Abuse Patient Records regulations: The Federal rules restrict any use of the information to criminally investigate or prosecute any alcohol or drug abuse patient.[facility] HospitalIn the event this information is protected by the Federal Confidentiality of Alcohol and Drug Abuse Patient Records regulations: The Federal rules restrict any use of the information to criminally investigate or prosecute any alcohol or drug abuse patient.[facility] HospitalIn the event this information is protected by the Federal Confidentiality of Alcohol and Drug Abuse Patient Records regulations: The Federal rules restrict any use of the information to criminally investigate or prosecute any alcohol or drug abuse patient.[facility] HospitalIn the event this information is protected by the Federal Confidentiality of Alcohol and Drug Abuse Patient Records regulations: The Federal rules restrict any use of the information to criminally investigate or prosecute any alcohol or drug abuse patient.[facility] HospitalIn the event this information is protected by the Federal Confidentiality of Alcohol and Drug Abuse Patient Records regulations: The Federal rules restrict any use of the information to criminally investigate or prosecute any alcohol or drug abuse patient.[facility] HospitalIn the event this information is protected by the Federal Confidentiality of Alcohol and Drug Abuse Patient Records regulations: The Federal rules restrict any use of the information to criminally investigate or prosecute any alcohol or drug abuse patient.[facility] HospitalIn the event this information is protected by the Federal Confidentiality of Alcohol and Drug Abuse Patient Records regulations: The Federal rules restrict any use of the information to criminally investigate or prosecute any alcohol or drug abuse patient.[facility] HospitalIn the event this information is protected by the Federal Confidentiality of Alcohol and Drug Abuse Patient Records regulations: The Federal rules restrict any use of the information to criminally investigate or prosecute any alcohol or drug abuse patient.[facility] HospitalIn the event this information is protected by the Federal Confidentiality of Alcohol and Drug Abuse Patient Records regulations: The Federal rules restrict any use of the information to criminally investigate or prosecute any alcohol or drug abuse patient.[facility] HospitalIn the event this information is protected by the Federal Confidentiality of Alcohol and Drug Abuse Patient Records regulations: The Federal rules restrict any use of the information to criminally investigate or prosecute any alcohol or drug abuse patient.[facility] HospitalIn the event this information is protected by the Federal Confidentiality of Alcohol and Drug Abuse Patient Records regulations: The Federal rules restrict any use of the information to criminally investigate or prosecute any alcohol or drug abuse patient.[facility] HospitalIn the event this information is protected by the Federal Confidentiality of Alcohol and Drug Abuse Patient Records regulations: The Federal rules restrict any use of the information to criminally investigate or prosecute any alcohol or drug abuse patient.[facility] HospitalIn the event this information is protected by the Federal Confidentiality of Alcohol and Drug Abuse Patient Records regulations: The Federal rules restrict any use of the information to criminally investigate or prosecute any alcohol or drug abuse patient.[facility] HospitalIn the event this information is protected by the Federal Confidentiality of Alcohol and Drug Abuse Patient Records regulations: The Federal rules restrict any use of the information to criminally investigate or prosecute any alcohol or drug abuse patient.[facility] HospitalIn the event this information is protected by the Federal Confidentiality of Alcohol and Drug Abuse Patient Records regulations: The Federal rules restrict any use of the information to criminally investigate or prosecute any alcohol or drug abuse patient.[facility] HospitalIn the event this information is protected by the Federal Confidentiality of Alcohol and Drug Abuse Patient Records regulations: The Federal rules restrict any use of the information to criminally investigate or prosecute any alcohol or drug abuse patient.[facility] HospitalIn the event this information is protected by the Federal Confidentiality of Alcohol and Drug Abuse Patient Records regulations: The Federal rules restrict any use of the information to criminally investigate or prosecute any alcohol or drug abuse patient.[facility] Reason for Visit (unrecogniz ed section and content) Reason Comments Pain (RT) index finger pa in Reason Comments Orders Reason Onset Date Comments Refill Request 08/16/2021 Reason Comments Photophobia Both Eyes For 6 years Scleral Lesion Evaluation Right inner, l ower lid for 6 months Reason Comments New Patient Reason Comments New Patient Pain goes from neck down, primarily all R side through the arm and neck Reason Comments PT Eval Specialty Diagnoses / Procedures Referred By Contac t Referred To Contact [facility] Diagnoses Chronic bilateral low back pain with right-sided sciatica Pain in both upper extremities Neck pain Imbalance Impaired dexterity Procedures CONSULT TO PHYSICAL THERAPY PHYSICAL THERAPY EVALUATION HIGH COMPLEX 45 MINS Yovany Avery PA-C [address] [place] [address] [facility] [place] [address] [place] [address] Referral ID Status Reason Start Date Expiration Date V isits Requested Visits Authorized [id number] Closed Auto-Generate d Referral 04/23/2022 07/23/2022 1 1 Reason Comments New Patient Reason Comments surgery scheduling Reason Comments Appointment Reason Comments Consult Reason Comments Patient Update Reason Comments Forms Reason Comments preop info Specialty Diagnoses / Procedures Referred By Contac t Referred To Contact [facility] Home Care [address] [place] [address] Referral ID Status Reason Start Date Expiration Date Visits Re quested Visits Authorized [id number] 1 1 Reason Comments Post Op Reason Comments Patient Question Reason Comments Joint Pain Reason Comments Established Patient Reason Comments Radiology CT Specialty Diagnoses / Procedures Referred By Contac t Referred To Contact CT IMAGING Diagnoses Cervical myelopathy (HCC) Procedures CT CERVICAL SPINE WO IVCON CT CERVICAL SPINE W/O CONTRAST MATERIAL Reyes Roy MD [address] [place] [address] Ct Imaging [id number] Referral ID Status Reason Start Date Expiration Date V isits Requested Visits Authorized [id number] Closed Auto-Generate d Referral 06/04/2022 08/03/2022 1 1 Care Teams (unrecognized sec tion and content) Timber Sizer Relationship Specialty Start Date End Date Lauren Daniel PCP - General [facility] Practice 10/05/18 Dipak Henao MD [address] [place] [address] [facility] Family Practice 03/09/20 Timber Sizer Relationship Specialty Start Date End Date Lauren Daniel PCP - General Family Practice 10/05/18 Dipak Henao MD [address] [facility] [place] [address] [facility] Family Practice 03/09/20 Timber Sizer Relationship Specialty Start Date End Date GenevatLauren PCP - General Family Practice 10/05/18 Dipak Henao MD [address] [facility] [place] [address] [facility] 03/09/20 Timber Sizer Relationship Specialty Start Date End Date Lauren Daniel PCP - General Family Practice 10/05/18 Dipak Henao MD [address] [place] [address] [place] [address] [facility] Family Practice 03/09/20 Timber Sizer Relationship Specialty Start Date End Date GenevatLauren PCP - General Family Practice 10/05/18 Dipak Henao MD [address] [place] [address] [place] [address] [facility] 03/09/20 Timber Sizer Relationship Specialty Start Date End Date Lauren Daniel PCP - General Family Practice 10/05/18 Dipak Henao MD [address] [place] [address] [place] [address] [facility] 03/09/20 Timber Sizer Relationship Specialty Start Date End Date GenevatLauren PCP - General Family Practice 10/05/18 Dipak Henao MD [address] [facility] [place] [address] [facility] 03/09/20 Timber Sizer Relationship Specialty Start Date End Date Lauren Daniel PCP - General Family Practice 10/05/18 Dipak Henao MD [address] [facility] [place] [address] [facility] Family [facility] 03/09/20 Timber Sizer Relationship Specialty Start Date End Date Tonya Arriaga, PHARMACY BENEFIT MANAGER [address] [facility] [place] [address] PCP - General Internal Medicine 12/12/21 Lauren Daniel Family Medicine 12/12/21 Dipak Henao MD [address] [facility] [place] [address] [facility] Family Medicine 03/09/20 Carter Pierce MD [address] [facility] [place] [address] Referring Family Medicine 12/07/21 Melania Petty NP Family Medicine 12/12/21 Timber Sizer Relationship Specialty Start Date End Date Tonya Arriaga, PHARMACY BENEFIT MANAGER [address] [facility] [place] [address] PCP - General Internal Medicine 12/12/21 Lauren Daniel [address] [facility] [place] [address] Family Medicine 12/12/21 Dipak Henao MD [address] [facility] [place] [address] [facility] Family Medicine 03/09/20 Carter Pierce(Historical)MD [address] [facility] [place] [address] Referring Family Medicine 12/07/21 Melania Petty, JAYME [address] [place] [address] Family Medicine 12/12/21 Timber Sizer Relationship Specialty Start Date End Date Tonya Arriaga, PHARMACY BENEFIT MANAGER [address] [place] [address] PCP - General Internal Medicine 12/12/21 Lauren Daniel [address] [place] [address] Family Medicine 12/12/21 Dipak Henao MD [address] [place] [address] [facility] Family Medicine 03/09/20 Carter Pierce(Historical), [address] [place] [address] Referring Family Medicine 12/07/21 Melania Petty NP [address] [place] [address] Family Medicine 12/12/21 Timber Sizer Relationship Specialty Start Date End Date Tonya Arriaga, PHARMACY BENEFIT MANAGER [address] [place] [address] PCP - General Internal Medicine 12/12/21 Lauren Daniel [address] [place] [address] Family Medicine 12/12/21 Dipak Henao MD [address] [place] [address] [facility] Family Medicine 03/09/20 Carter Pierce(Historical), [address] [place] [address] Referring Family Medicine 12/07/21 Melania Petty NP [address] [place] [address] Family Medicine 12/12/21 Timber Sizer Relationship Specialty Start Date End Date Tonya Arriaga, PHARMACY BENEFIT MANAGER [address] [place] [address] PCP - General Internal Medicine 12/12/21 Lauren Daniel [address] [place] [address] Family Medicine 12/12/21 Dipak Henao MD [address] [place] [address] [facility] Family [facility] 03/09/20 Carter Pierce(Historical), [address] [place] [address] Referring Family Medicine 12/07/21 Melania Petty NP [address] [place] [address] Family Medicine 12/12/21 Timber Sizer Relationship Specialty Start Date End Date Tonya Arriaga PHARMACY BENEFIT MANAGER [address] [place] [address] PCP - General Internal Medicine 12/12/21 Lauren Daniel [address] [place] [address] Family Medicine 12/12/21 Dipak Henao MD [address] [place] [address] [facility] 03/09/20 Carter Pierce(Historical), [address] [place] [address] Referring Family Medicine 12/07/21 Melania Petty NP [address] [place] [address] Family Medicine 12/12/21 Timber Sizer Relationship Specialty Start Date End Date Tonya Arriaga PHARMACY BENEFIT MANAGER [address] [place] [address] PCP - General Internal Medicine 12/12/21 Lauren Daniel [address] [place] [address] Family Medicine 12/12/21 Dipak Henao MD [address] [place] [address] [facility] Family Medicine 03/09/20 Carter Pierce(Historical), [address] [place] [address] Referring Family Medicine 12/07/21 Melania Petty NP [address] [place] [address] Family Medicine 12/12/21 Timber Sizer Relationship Specialty Start Date End Date Tonya Arriaga PHARMACY BENEFIT MANAGER [address] [place] [address] PCP - General Internal Medicine 12/12/21 Lauren Daniel [address] [place] [address] Family Medicine 12/12/21 Dipak Henao MD [address] [place] [address] [facility] Family Medicine 03/09/20 Carter Pierce(Historical), [address] [place] [address] Referring Family Medicine 12/07/21 Melania Petty NP [address] [place] [address] Family Medicine 12/12/21 Timber Sizer Relationship Specialty Start Date End Date Tonya Arriaga PHARMACY BENEFIT MANAGER [address] [place] [address] PCP - General Internal Medicine 12/12/21 Lauren Daniel [address] [address] Family Medicine 12/12/21 Dipak Henao MD [address] [place] [address] [facility] Family [facility] 03/09/20 Carter Pierce(Historical), [address] [facility] [place] [address] Referring Family Medicine 12/07/21 Melania Petty NP [address] [place] [address] Family Medicine 12/12/21 Timber Sizer Relationship Specialty Start Date End Date Tonya Arriaga, PHARMACY BENEFIT MANAGER [address] [place] [address] PCP - General Internal Medicine 12/12/21 Lauren Daniel [address] [facility] [place] [address] Family Medicine 12/12/21 Dipak Henao MD [address] [place] [address] [facility] Family [facility] 03/09/20 Carter Pierce(Historical), [address] [facility] [place] [address] Referring Family Medicine 12/07/21 Melania Petty NP [address] [facility] [place] [address] Family Medicine 12/12/21 Reyes Roy MD [address] [place] [address] Home Care Provider Neurosurgery 07/05/22 Wilmer Choi PA-C [address] [place] [address] Referring Neurosurgery 07/05/22 Amarilis Molina, PT [address] [place], [place] [phone] Nurse Tech Post Acute Care 07/05/22 Timber Sizer Relationship Specialty Start Date End Date Tonya Arriaga, PHARMACY BENEFIT MANAGER [address] [place] [address] PCP - General Internal Medicine 12/12/21 Lauren Daniel [address] [facility] [place] [address] Family Medicine 12/12/21 Dipak Henao MD [address] [place] [address] [facility] Family [facility] 03/09/20 Carter Pierce(Historical), [address] [place] [address] Referring Family Medicine 12/07/21 Melania Petty NP [address] [place] [address] Family Medicine 12/12/21 Reyes Roy MD [address] [place], [place] [id number] Home Care Provider Neurosurgery 07/05/22 Wilmer Choi PA-C [address] [place] [address] Referring Neurosurgery 07/05/22 Amarilis Molina, PT [address] [place] [address] Nurse Tech Post Acute Care 07/05/22 Timber Sizer Relationship Specialty Start Date End Date Tonya Arriaga, PHARMACY BENEFIT MANAGER [address] [place] [address] PCP - General Internal Medicine 12/12/21 Lauren Daniel [address] [place] [address] Family Medicine 12/12/21 Dipak Henao MD [address] [place] [address] [facility] Family Medicine 03/09/20 Carter Pierce(Historical), [address] [place] [address] Referring Family Medicine 12/07/21 Melania Petty, JAYME [address] [place] [address] Family Medicine 12/12/21 Reyes Roy MD [address] [place] [address] Home Care Provider Neurosurgery 07/05/22 Wilmer Choi PA-C [address] [place] [address] Referring Neurosurgery 07/05/22 Amarilis Molina, PT [address] [place], [place] [id number] Nurse Tech Post Acute Care 07/05/22 Timber Sizer Relationship Specialty Start Date End Date Tonya Arriaga, PHARMACY BENEFIT MANAGER [address] [place] [address] PCP - General Internal Medicine 12/12/21 Lauren Daniel [address] [place] [address] Family Medicine 12/12/21 Dipak Henao MD [address] [place] [address] [facility] 03/09/20 Carter Pierce(Historical)MD [address] [place] [address] Referring Family Medicine 12/07/21 Melania Petty, JAYME [address] [place] [address] Family Medicine 12/12/21 Reyes Roy MD [address] [place] [address] Home Care Provider Neurosurgery 07/05/22 Wilmer Choi PA-C [address] [place] [address] Referring Neurosurgery 07/05/22 Amarilis Molina, PT [address] [place] [address] Nurse Tech Post Acute Care 07/05/22 Timber Sizer Relationship Specialty Start Date End Date Tonya Arriaga, PHARMACY BENEFIT MANAGER [address] [facility] [place] [address] PCP - General Internal Medicine 12/12/21 Lauren Daniel [address] [facility] [place] [address] Family Medicine 12/12/21 Dipak Henao MD [address] [facility] [place] [address] [facility] 03/09/20 Carter Pierce(Historical)MD [address] [place] [address] Referring Family Medicine 12/07/21 Melania Petty, JAYME [address] [place] [address] Family Medicine 12/12/21 Reyes Roy MD [address] [place], [place] [id number] Home Care Provider Neurosurgery 07/05/22 Wilmer Choi PA-C [address] [place], [place] [id number] Referring Neurosurgery 07/05/22 Amarilis Molina, PT [address] [place] [address] Nurse Tech Post Acute Care 07/05/22 Timber Sizer Relationship Specialty Start Date End Date Tonya Arriaga, PHARMACY BENEFIT MANAGER [address] [facility] [place] [address] PCP - General Internal Medicine 12/12/21 Lauren Daniel [address] [facility] [place] [address] Family Medicine 12/12/21 Dipak Henao MD [address] [facility] [place] [address] [facility] Family [facility] 03/09/20 Carter Pierce(Historical)MD [address] [facility] [place] [address] Referring Family Medicine 12/07/21 Melania Petty, JAYME [address] [facility] [place] [address] Family Medicine 12/12/21 Reyes Roy MD [address] [place], [place] [id number] Home Care Provider Neurosurgery 07/05/22 Wilmer Choi PA-C [address] [place] [address] Referring Neurosurgery 07/05/22 Amarilis Molina, PT [address] [place], [place] [phone] Nurse Tech Post Acute Care 07/05/22 Timber Sizer Relationship Specialty Start Date End Date Tonya Arriaga CNP [address] [facility] [place] [address] PCP - General Internal Medicine 12/12/21 Lauren Daniel [address] [facility] [place] [address] Family Medicine 12/12/21 Dipak Henao MD [address] [facility] [place] [address] [facility] Family [facility] 03/09/20 Carter Pierce(Historical)MD [address] [facility] [place] [address] Referring Family Medicine 12/07/21 Melania Petty, JAYME [address] [place] [address] Family Medicine 12/12/21 Reyes Roy MD [address] [place] [address] [id number] Home Care Provider Neurosurgery 07/05/22 Wilmer Choi PA-C [address] [place] [address] [phone] Referring Neurosurgery 07/05/22 Amarilis Molina, PT [address] [place], [place] [phone] Nurse Tech Post Acute Care 07/05/22 Timber Sizer Relationship Specialty Start Date End Date Tonya Arriaga CNP [address] [place] [address] PCP - General Internal Medicine 12/12/21 Lauren Daniel [address] [place] [address] Family Medicine 12/12/21 Dipak Henao MD [address] [place] [address] [facility] 03/09/20 Carter Pierce(Historical)MD [address] [place] [address] Referring Family Medicine 12/07/21 Melania Petty NP [address] [place] [address] Family Medicine 12/12/21 Reyes Roy MD [address] [place], [place] 8019224 Home Care Provider Neurosurgery 07/05/22 Wilmer Choi PA-C [address] [place] [phone] Referring Neurosurgery 07/05/22 Amarilis Molina, PT [address] [place] [address] Nurse Tech Post Acute Care 07/05/22 Timber Sizer Relationship Specialty Start Date End Date Tonya Arriaga CNP [address] [place] [address] PCP - General Internal Medicine 12/12/21 Lauren Daniel [address] [place] [address] Family Medicine 12/12/21 Dipak Henao MD [address] [place] [address] [facility] 03/09/20 Carter Pierce(Historical)MD [address] [place] [address] Referring Family Medicine 12/07/21 Melania Petty NP [address] [place] [address] Family Medicine 12/12/21 Reyes Roy MD [address] [place], [place] [id number] Home Care Provider Neurosurgery 07/05/22 Wilmer Choi PA-C [address] [place], [place] [phone] Referring Neurosurgery 07/05/22 Amarilis Molina, PT [address] [place], [place] [phone] Nurse Tech Post Acute Care 07/05/22 Timber Sizer Relationship Specialty Start Date End Date Tonya Arriaga CNP [address] [facility] [place] [address] PCP - General Internal Medicine 12/12/21 Lauren Daniel [address] [facility] [place] [address] Family Medicine 12/12/21 Dipak Henao MD [address] [place] [address] [facility] 03/09/20 Carter Pierce(Historical)MD [address] [facility] [place] [address] Referring Family Medicine 12/07/21 Melania Petty NP [address] [place] [address] Family Medicine 12/12/21 FOR RECORDS PERTAINING TO PATIENTS WHO ARE OR HAVE BEEN ENROLLED IN A CHEMICAL DEPENDENCY/SUBSTANCEABUSE PROGRAM, SOME INFORMATION MAY BE OMITTED. This clinical summary was aggregated from multiple sources. Caution should be exercised in using it in the provision of clinical care. This summary normalizes information from multiple sources, and as a consequence, information in this document may materially change the coding, format and clinical context of patient data. In addition, data may be omitted in some cases. CLINICAL DECISIONS SHOULD BE BASED ON THE PRIMARY CLINICAL RECORDS. [employer] [facility]. provides no warranty or guarantee of the accuracy or completeness of information in this document.
[2023-04-12] MEDS: Ibuprofen 200 MG Tablet 400 MG PO (13:13)
[2023-04-12] MEDS: predniSONE 20 MG Tablet 40 MG PO (13:13)
[2023-04-12] MEDS: Oxycodone/Apap 5/325 Tablet PO (13:14)
[2023-04-12 13:19] VITALS: BP 138/84; PULSE 95; RESP 18; TEMP 36.6; O2SAT 99
== END 2023-04-12 13:22 | disposition home or self-care (01) ==
PROVIDERS: Emergency Provider Emergency Medicine; Visit Provider Emergency Medicine
DX: N39.9 Disorder of urinary system, unspecified (principal); F17.210 Nicotine dependence, cigarettes, uncomplicated
CPT/HCPCS: 99283

== ENCOUNTER 2023-05-10 09:39 | Emergency (ER) | payer MEDICAID, SELFPAY ==
[2023-05-10 09:41] VITALS: BP 88/60; BP 88/75; PULSE 98; RESP 18; TEMP 37.2; O2SAT 96; BMI 29.7
--- NOTE | 2023-05-10 10:15 | EX.ED.DYSGE1 ---
HPI History of Present Illness Chief Complaint: Dental Informant: patient Narrative Narrative: 37-year-old female presenting to the emergency room with left facial swelling and pain. Patient notes that she has had some discomfort in the left upper incisor region. She states her eye has been watering and her sinuses draining. She states that she was seen in urgent care yesterday started on clindamycin for dental infection. Today she has had increased facial swelling on the left side pain. She denies any fevers. Patient states that she has called a couple dentist and there is a long wait to get in. She became concerned with the swelling and was worried she may be having allergic reaction. She was started on 450 mg of clindamycin 3 times a day yesterday. She has had a couple doses of that medication. She does note some associated nausea. [facility] Medical History Chronic neck and back pain Costochondritis, acute GERD (gastroesophageal reflux disease) Shoulder pain Home Medications omeprazole 40 mg capsule,delayed release 40 mg PO DAILY 02/22/21 [History Last Taken Unknown] cyclobenzaprine 10 mg tablet 10 mg PO TID PRN Muscle Spasm #20 TABLETS 12/03/21 [Rx Last Taken Unknown] cyclobenzaprine 5 mg tablet 5 mg PO TID PRN muscle spasm #21 tabs 04/12/23 [Rx Last Taken Unknown] clindamycin HCl 150 mg capsule 450 mg (3 x 150 mg) PO TID 5 days #45 caps 05/10/23 [Rx Last Taken Unknown] clindamycin HCl 150 mg capsule 450 mg PO TID 05/10/23 [History Last Taken Unknown] naproxen 500 mg tablet (Naprosyn) 500 mg PO BID PRN pain #20 tabs 05/10/23 [Rx Last Taken Unknown] ondansetron 4 mg disintegrating tablet 4 mg PO Q6H PRN PRN Nausea #15 tabs 05/10/23 [Rx Last Taken Unknown] oxycodone-acetaminophen 5 mg-325 mg tablet 1 tab PO Q6H PRN PRN Pain 3 days #12 TABLETS 05/10/23 [Rx Last Taken Unknown] Allergy/AdvReac Type Severity Reaction Status Date / Time Penicillins Allergy Anaphylaxis Verified 05/10/23 09:40 Family History Other Hypertension Surgical History Hx of section S/P spinal surgery Social History Smoking Status: Current every day smoker tobacco type: cigarettes ROS ROS ED Constitutional Constitutional ED: Denies chills, fever(s) or weight loss Eyes Eyes: Reports other Details: Watery left eye ; Denies blurry vision, change in vision or diplopia ENT ENT ED: Reports rhinorrhea and other Details: Facial swelling left upper dental pain ; Denies ear pain or sore throat Cardiovascular Cardiovascular: Denies chest pain, orthopnea, palpitations or racing heartbeat Respiratory/Chest Respiratory/Chest: Denies cough, dyspnea or orthopnea Gastrointestinal Gastrointestinal: Denies abdominal pain, diarrhea, nausea or vomiting Genitourinary Genitourinary ED: Denies dysuria, hematuria or urinary frequency Musculoskeletal Musculoskeletal: Denies arthralgias or myalgias Integumentary Denies abscess or rash Neurologic Neurologic: Denies headache(s) or weakness Psychiatric Psychiatric: Denies anxiety, depression, suicidal ideation or suicidal thoughts Endocrine Endocrinology: Denies polydipsia, polyphagia or polyuria Allergic/Immunologic Allergic/Immunologic ED: Denies mouth swelling, tongue swelling or urticaria EXAM Physical Exam Const Vital Signs: 05/10/23 09:41 05/10/23 09:41 Temperature 99 F Temperature Source Temporal Pulse Rate 98 Respiratory Rate 18 Blood Pressure 88/60 L 88/75 L Blood Pressure Mean 69 79 Pulse Ox 96 Oxygen Delivery Method Room Air Positive well nourished and well developed General Appearance ED: well developed HEENT Reports normocephalic, head/scalp atraumatic and moist mucous membranes HEENT Narrative: The gumline around tooth 11 and 12 shows some mild erythema. No focal drainable abscess seen. There is no trismus. There is tenderness particular of tooth #12 with some apparent dental decay. There is some overlying left maxillary swelling that is mild in nature. No significant erythema. Eyes PERRL and EOMs intact bilaterally Eyes Narrative: Left eye shows no injection. Extraocular motions are normal and painless. The ocular exam is essentially negative. Swelling is infraorbital. Neck no lymphadenopathy, supple and no JVD Neck Narrative: Healed right surgical incision. Resp normal respiratory effort and clear to auscultation bilaterally Cardio regular rate, regular rhythm and no murmurs GI normal to inspection, nondistended, normoactive bowel sounds and non-tender Palpation: soft Back/Spine no CVA tenderness and normal ROM Extremity normal to inspection General Extremety ED: Negative for edema General Extremity: Negative for edema Neuro oriented x3 and CN's II-XII intact bilaterally Sensorium / Orientation: alert Motor Exam: strength 5/5 throughout Psych mental status grossly normal Mood & Affect: Negative for depressed or tearful Skin no rashes or lesions noted and no wounds MDM MDM MDM Narrative Medical decision making narrative: I will write for the patient to have an additional 5 days for total of 10 days of clindamycin. Also write for anti-inflammatories, Zofran, and a few Percocet for pain control. She is to ice the area. The patient should schedule an appointment with dentistry to be seen as soon as possible. Discharge Plan Triage Chief Complaint: Dental ED Provider: Kota Saha Dx/Rx/DC Orders Clinical Impression: Acute facial pain, Abscess, periapical Instructions: ED Dental Abscess Prescriptions: New clindamycin HCl 150 mg capsule 450 mg PO TID 5 Days Qty: 45 0RF oxycodone-acetaminophen [oxycodone-acetaminophen] 5-325 mg tablet 1 tab PO Q6H PRN PRN (Reason: Pain) 3 Days Qty: 12 0RF naproxen [Naprosyn] 500 mg tablet 500 mg PO BID PRN (Reason: pain) Qty: 20 0RF ondansetron [ondansetron] 4 mg tablet,disintegrating 4 mg PO Q6H PRN PRN (Reason: Nausea) Qty: 15 0RF No Action omeprazole 40 mg capsule,delayed release(DR/EC) 40 mg PO DAILY Hold Instructions: patientnot taking Patient Comments: TAKE 1 CAPSULE EVERY DAY cyclobenzaprine [cyclobenzaprine] 10 mg tablet 10 mg PO TID PRN (Reason: Muscle Spasm) Qty: 20 0RF cyclobenzaprine 5 mg tablet 5 mg PO TID PRN (Reason: muscle spasm) Qty: 21 0RF Hold Instructions: Conflicting Appointment clindamycin HCl 150 mg capsule 450 mg PO TID [facility] - As soon as possible Activity Restrictions/Additional Instructions: I would like for you to take a total of 10 days worth of clindamycin. Therefore I have prescribed an additional 5 days to what you are already taking. I have also wrote for some nausea medication. Please also take the anti-inflammatory I have prescribed and the pain medicine as needed. Disposition Disposition: Home, Self Care
[2023-05-10 10:22] VITALS: BP 127/78; PULSE 78; RESP 16; O2SAT 97
--- OUTSIDE RECORDS SUMMARY | 2023-05-10 10:26 | XMS RPT_ITS | CCD ---
Author Name Unknown Address [address] [place] [address] Organization [facility] Care Team Providers Care Receptionist Name Role Phone Lauren Daniel Primary Care Provider Dipak Henao MD Unavailable Corina HE, Tonya Berry Primary Care Provider Lauren Daniel Unavailable Dipak Henao MD Unavailable Carter Pierce MD Unavailable Jovanny DELACRUZ, Melania Unavailable Tonya Arriaga CNP Primary Care Provider Lauren Daniel Unavailable Dipak Henao MD Unavailable Carter Pierce MD(Historical) Unavailable Liza vailable Jovanny BUTTER LIQUEFIER, Melania Unavailable MANUELA REYES Admitting Unavailable MANUELA, REYES Attending Unavailable TONYA ARRIAGA Primary Care Unavailable VALDEMAR NELSON Consulting Unavailable Reyes Azevedo MD Unavailable Wilmer Choi PA-C Unavailable Tracy PT, Amarilis Unavailable Dipak Henao MD Unavailable TONYA ARRIAGA Primary Care Unavailable UNGPRASERT, PATOMPONG Referring Unavailabl e TONYA ARRIAGA Primary Care Unavailable YOVANY AVERY Referring Unavailable DANK SPRINGER Attending Unavailable TONYA ARRIAGA Primary Care Unavailable MANUELA, REYES Referring Unavailable TONYA ARRIAGA Primary Care Unavailable MANUELA, REYES Attending Unavailable [...] Care Unavailable GODFRAY, YOVANY Referring Unavailable MANUELA, REYES Attending Unavailable ARRIAGA, [...] Dipak Berry Unavailable Tracy PT, Amarilis Unavailable Jovanny BUTTER LIQUEFIER, Melania Unavailable Allergies Allergy Classification Reported Allergen(s) Allergy Type Date of Onset Reaction(s) Facility (11 sources) Penicillins; Translations: [PENICILLINS] Drug Allergy 10-05-2018 Anaphylaxis [facility] (20 sources) Penicillins Drug Allergy 10-05-2018 Anaphylaxis [facility] Medications Current Medications Medication Drug Class(es) [...] Translations: [Supraventricular tachycardia] Onset: 2 12-24-2021 Chronic Disorders of teeth and jaw (1 source) Toothache; Translations: [Other specified disorders of teeth and supporting structures] 05-09-2023 Episodic Esophageal disorders (19 sources) Gastroesophageal reflux disease; Translations: [Gastro-esophageal reflux [...] Chronic Other nutritional; endocrine; and metabolic disorders (7 sources) Obesity caused by energy imbalance; Translations: [...] [Other specified health status] Episodic Substance-related disorders (19 sources) Smoker; Translations: [Nicotine dependence, unspecified, uncomplicated] [...] pain] Onset: 03-17-2022 Episodic Residual codes; unclassified (11 sources) Postoperative state; Translations: [Other specified postprocedural states] Onset: 07-04-2022 07-04-2022 Episodic Spondylosis; intervertebral disc disorders; other back problems (20 sources) Chronic low back pain; Translations: [Lumbago with sciatica, right side] Onset: 03-17-2022 Episodic Results Test Name Value Interpretation Reference Range Facil ity Vital Signs Date Time Vital Sign Value Performing Clinician Anabel srinivasan 05-09-2023 14:48-0400 Body temperature 98.2 [degF] Renato Parkinson MD Work Phone: [facility] 05-09-2023 14:48-0400 Body weight 91.6 kg Renato Parkinson MD Work Phone: [facility] 05-09-2023 14:48-0400 Diastolic blood pressure 76 mm[Hg] Renato Parkinson MD Work Phone: [facility] 05-09-2023 14:48-0400 Heart rate 63 /min Renato Parkinson MD Work Phone: [facility] 05-09-2023 14:48-0400 Respiratory rate 18 /min Renato Parkinson MD Work Phone: [facility] 05-09-2023 14:48-0400 SaO2% (BldA) [Mass fraction] 94 % Renato Parkinson MD Work Phone: [facility] 05-09-2023 14:48-0400 Systolic blood pressure 118 mm[Hg] Renato Parkinson MD Work Phone: [facility] 09-17-2022 13:20-0400 Body height 175.3 cm Garcia Cuellar MD Work Phone: [facility] 09-17-2022 13:20-0400 Body temperature 97.7 [degF] Garcia Cuellar MD Work Phone: [facility] 09-17-2022 13:20-0400 Body weight 95.94 kg Garcia Cuellar MD Work Phone: [facility] 09-17-2022 13:20-0400 Diastolic blood pressure 96 mm[Hg] Garcia Cuellar MD Work Phone: [facility] 09-17-2022 13:20-0400 Heart rate 81 /min Garcia Cuellar MD Work Phone: [facility] 09-17-2022 13:20-0400 Systolic blood pressure 136 mm[Hg] Garcia Cuellar MD Work Phone: [facility] 08-21-2022 12:16-0400 Body temperature 99.19 [degF] Reyes Azevedo MD Work Phone: [facility] 08-21-2022 12:16-0400 Diastolic blood pressure 85 mm[Hg] Reyes Azevedo MD Work Phone: [facility] 08-21-2022 12:16-0400 Heart rate 72 /min Reyes Azevedo MD Work Phone: [facility] 08-21-2022 12:16-0400 Systolic blood pressure 130 mm[Hg] Reyes Azevedo MD Work Phone: [facility] 07-23-2022 10:38-0400 Body temperature 98.4 [degF] Marcelina Loweox PT Work Phone: [facility] 07-23-2022 10:38-0400 Diastolic blood pressure 88 mm[Hg] Marcelina Alvarez PT Work Phone: [facility] 07-23-2022 10:38-0400 Heart rate 69 /min Marcelinamoustapha Loweox PT Work Phone: [facility] 07-23-2022 10:38-0400 Respiratory rate 16 /min Marcelinamoustapha Loweox PT Work Phone: [facility] 07-23-2022 10:38-0400 SaO2% (BldA) [Mass fraction] 99 % Marcelina Alvarez PT Work Phone: [facility] 07-23-2022 10:38-0400 Systolic blood pressure 124 mm[Hg] Marcelina Alvarez PT Work Phone: [facility] 07-22-2022 14:22-0400 Body temperature 97.59 [degF] Meeta Lety PRODUCT TESTER [employer] Work Phone: [facility] 07-22-2022 14:22-0400 Diastolic blood pressure 84 mm[Hg] Meeta Lety PRODUCT TE[employer] Work Phone: [facility] 07-22-2022 14:22-0400 Heart rate 77 /min Meeta Lety PRODUCT TE[employer] Work Phone: [facility] 07-22-2022 14:22-0400 Respiratory rate 18 /min Meeta Lety PRODUCT TESTER [employer] Work Phone: [facility] 07-22-2022 14:22-0400 SaO2% (BldA) [Mass fraction] 99 % Meeta Lety PRODUCT TE[employer] Work Phone: [facility] 07-22-2022 14:22-0400 Systolic blood pressure 124 mm[Hg] Meeta Lety PRODUCT TE[employer] Work Phone: [facility] 07-22-2022 13:48-0400 Heart rate 88 /min Caty Bousfield OT/L Work Phone: [facility] 07-22-2022 13:48-0400 SaO2% (BldA) [Mass fraction] 99 % Caty Bousfield OT/L Work Phone: [facility] 07-22-2022 13:13-0400 Body temperature 97.9 [degF] Caty Bousfield OT/L Work Phone: [facility] 07-22-2022 13:13-0400 Diastolic blood pressure 80 mm[Hg] Caty Bousfield OT/L Work Phone: [facility] 07-22-2022 13:13-0400 Systolic blood pressure 120 mm[Hg] Caty Bousfield OT/L Work Phone: [facility] 07-07-2022 12:27-0400 Body temperature 98.8 [degF] Troy Giffels PT Work Phone: [facility] 07-07-2022 12:27-0400 Diastolic blood pressure 70 mm[Hg] Troy Giffels PT Work Phone: [facility] 07-07-2022 12:27-0400 Heart rate 63 /min Troy Giffels PT Work Phone: [facility] 07-07-2022 12:27-0400 Respiratory rate 18 /min Troy Giffels PT Work Phone: [facility] 07-07-2022 12:27-0400 SaO2% (BldA) [Mass fraction] 94 % Troy Giffels PT Work Phone: [facility] 07-07-2022 12:27-0400 Systolic blood pressure 100 mm[Hg] Troy Giffels PT Work Phone: [facility] 06-04-2022 15:25-0400 Body height 175.3 cm Pacc 1 Work Phone: [facility] 06-04-2022 15:25-0400 Body temperature 99.7 [degF] Pacc 1 Work Phone: [facility] 06-04-2022 15:25-0400 Body weight 94.8 kg Pacc 1 Work Phone: [facility] 06-04-2022 15:25-0400 Diastolic blood pressure 84 mm[Hg] Pacc 1 Work Phone: [facility] 06-04-2022 15:25-0400 Heart rate 85 /min Pacc 1 Work Phone: [facility] 06-04-2022 15:25-0400 Respiratory rate 16 /min Pacc 1 Work Phone: [facility] 06-04-2022 15:25-0400 SaO2% (BldA) [Mass fraction] 94 % Pacc 1 Work Phone: [facility] 06-04-2022 15:25-0400 Systolic blood pressure 120 mm[Hg] Pacc 1 Work Phone: [facility] 06-02-2022 15:06-0400 Diastolic blood pressure 86 mm[Hg] Reyes Azevedo MD Work Phone: [facility] 06-02-2022 15:06-0400 Heart rate 84 /min Reyes Azevedo MD Work Phone: [facility] 06-02-2022 15:06-0400 Systolic blood pressure 138 mm[Hg] Reyes Azevedo MD Work Phone: [facility] 04-29-2022 10:00-0500 Diastolic blood pressure 84 mm[Hg] Dank Golias PT Work Phone: [facility] 04-29-2022 10:00-0500 Systolic blood pressure 122 mm[Hg] Dank Springer PT Work Phone: [facility] 04-23-2022 09:05-0500 Body height 175.3 cm Yovany Godfray PA-C Work Phone: [facility] 04-23-2022 09:05-0500 Body weight 92.08 kg Yovany Godfray PA-C Work Phone: [facility] 04-23-2022 09:05-0500 Diastolic blood pressure 87 mm[Hg] Yovany Joseefray PA-C Work Phone: [facility] 04-23-2022 09:05-0500 Heart rate 83 /min Yovany Trippfray PA-C Work Phone: [facility] 04-23-2022 09:05-0500 Systolic blood pressure 137 mm[Hg] Yovany Trippfray PA-C Work Phone: [facility] 03-17-2022 12:56-0500 Body temperature 96.49 [degF] Garcia Cuellar MD Work Phone: [facility] 03-17-2022 12:56-0500 Body weight 90.27 kg Garcia Cuellar MD Work Phone: [facility] 03-17-2022 12:56-0500 Diastolic blood pressure 76 mm[Hg] Garcia Cuellar MD Work Phone: [facility] 03-17-2022 12:56-0500 Heart rate 76 /min Garcia Cuellar MD Work Phone: [facility] 03-17-2022 12:56-0500 Systolic blood pressure 112 mm[Hg] Garcia Cuellar MD Work Phone: [facility] 05-23-2021 11:50-0400 Diastolic blood pressure 80 mm[Hg] Mckinley Mendez MD Work Phone: [facility] 05-23-2021 11:50-0400 Heart rate 68 /min Mckinley Mendez MD Work Phone: [facility] 05-23-2021 11:50-0400 Respiratory rate 16 /min Mckinley Mendez MD Work Phone: [facility] 05-23-2021 11:50-0400 SaO2% (BldA) [Mass fraction] 100 % Mckinley Mendez MD Work Phone: [facility] 05-23-2021 11:50-0400 Systolic blood pressure 120 mm[Hg] Mckinley Mendez MD Work Phone: [facility] 05-23-2021 11:30-0400 Body temperature 97.81 [degF] Mckinley Mendez MD Work Phone: [facility] 05-23-2021 10:38-0400 Body height 175.3 cm Mckinley Mendez MD Work Phone: [facility] 05-23-2021 10:38-0400 Body weight 84.82 kg Mckinley Mendez MD Work Phone: [facility] 05-21-2021 11:03-0400 Body temperature 98.01 [degF] Tiera Athy PA-C Work Phone: [facility] 05-21-2021 11:03-0400 Body weight 84.55 kg Tiera Athy PA-C Work Phone: [facility] 05-21-2021 11:03-0400 Diastolic blood pressure 68 mm[Hg] Tiera Athy PA-C Work Phone: [facility] 05-21-2021 11:03-0400 Heart rate 54 /min Tiera Athy PA-C Work Phone: [facility] 05-21-2021 11:03-0400 Respiratory rate 18 /min Tiera Athy PA-C Work Phone: [facility] 05-21-2021 11:03-0400 SaO2% (BldA) [Mass fraction] 97 % Tiera Athy PA-C Work Phone: [facility] 05-21-2021 11:03-0400 Systolic blood pressure 122 mm[Hg] Tiera Waddell PA-C Work Phone: [facility] Encounters Encounter Date Encounter Type Care Provider Facility Start: 05-09-2023 End: 05-09-2023 Patient encounter procedure Renato Parkinson MD Work Phone: [facility] Procedures Date Procedure Procedure Detail Performing Clinician Start: 11-25-2022 Radex spine cervical 2 or 3 views Reyes Azevedo MD Work Phone: Start: 06-10-2022 Ct cervical spine w/ o contrast material Reyes Azevedo MD Work Phone: Start: 06-04-2022 Antibody screen TONYA BONNER Plan of Treatment Date Care Activity Detail Author Start: 02-23-2023 Depression Assessment Depression Ass essment [facility] Start: 11-21-2022 End: 09-20-2023 Radex spine cervical 2 or 3 views XR CERV GENERAL 2V AP/LAT Radiology Routine Cervical myelopathy (HCC) Expected: 11/21/2022 (Approximate), Expires: 09/20/[address] [facility] Work Phone: Payers Date Payer Category Payer Medicaid [id number] 2018 Medicaid [employer] [id number] 2018-Present [phone] [address] [place] [address] Medicaid [id number] 2018 Medicaid [id number] 2018 Medicaid [id number] Social History Date Type Detail Facility Start: 10-05-2018 End: 12-24-2021 Tobacco smoking status NHIS Smokes tobacco daily [facility] Start: 10-05-2018 End: 12-24-2021 Tobacco use and exposure Smokeless tobacco non-user [facility] Start: 05-21-2021 End: 05-09-2023 Alcohol intake Current drinker of alcohol (finding) [facility] Start: 1985 Sex Assigned At Female [facility] Start: 05-11-2021 End: 05-23-2021 Exposure to SARS-CoV-2 (event) Not sure [facility] Work Phone: History of tobacco use Cigarette Smoker [facility] Start: 12-24-2021 End: 07-02-2022 Cigarettes smoked current (pack per day) - Reported 1 [facility] Start: 06-04-2022 [facility] Start: 07-02-2022 End: 09-17-2022 Tobacco use panel [facility] Adult Depression Screening Assessment 2 [facility] Start: 01-29-2021 Gender identity Identifies as female gender (finding) [facility] Start: 01-29-2021 Sexual orientation Bisexual (finding ) [facility] Medical Equipment Procedure Code Equipment Code Equipment Origin al Text Equipment Identifier Dates Grft I-Factor Pe Putty 1cc - [id number] Start: 07-04-2022 [place] Plate, 1 Level, Sz 18mm [id number] Start: 07-04-2022 Screw Bn 4mm 14m m [place] Spnl - [id number] Start: 07-04-2022 Spacer Avs 4d 7m m Spinal Bone Plug [id number] Start: 07-04-2022 Clinical Notes 05-21-2021 to 05-09-2023 Renato Parkinson MD - 05/09/2023 2:54 PM Reyes Mendoza MD - 11/27/2022 8:41 AM Garcia Castillo MD - 09/17/2022 2:00 PM JUSTOTPtawny Azevedo MD - 08/21/2022 11:40 AM EDT Note Date & Type Note Facility 05-09-2023 History of Presen t illness Narrative Patient presents with: Pain, Sinus: Sinus pain and pressure-possibly a tooth ache x 4 days HPI: Right tooth pain: Duration: started with rhinorrhea and nasal congestion 4 days ago, significant toothache the last couple days Location: left upper canine, cheek, and nose Character: aching, sharp, and severe Radiation: radiates around the left eye and down to her throat Aggravating: touching the tooth or cheek above it Relieving: Pain relievers: Motrin, Tylenol, oragel, nyquil Associated: swelling, crack in the tender tooth Pertinent negatives: Denies fever, sore throat, earache, cough, drainage, allodynia MEDICATIONS: pregabalin (LYRICA) 75 mg capsule Take 1 capsule by mouth twice daily. (Patient not taking: Reported on 05/09/2023) loratadine (CLARITIN) 10 mg tablet Take 10 mg by mouth once daily. (Patient not taking: Reported on 05/09/2023) omeprazole (PRILOSEC) 40 mg capsule Take 1 capsule by mouth once daily. (Patient not taking: Reported on 09/17/2022) ALLERGIES: ALLERGIES Allergen Reactions Penicillins Anaphylaxis VITALS: BP 118/76 Pulse 63 Temp 36.8 C (98.2 F) (Tympanic) Resp 18 Wt 91.6 kg (201 lb 15.1 oz) LMP 05/19/2021 SpO2 94% BMI 29.82 kg/m PE: Gen: uncomfortable, holding her face Eyes: PERRL, EOMI, sclera clear Ears: TMs without erythema, bulge, or effusion Sinuses: non-tender frontal, tender left maxilla above the canine and lateral to the nose, no allodynia with light touch, no rash Mouth/throat: MMM, no pharyngeal erythema, no exudate. Tender left upper canine - cavity on the posterior aspect Neck: Supple, remote anterior incision on the right, no thyromegaly, nontender, no lymphadenopathy Heart: regular rate and rhythm, no murmurs Lungs: clear to auscultation ASSESSMENT/PLAN: 1. Toothache - ICD9: 525.9, ICD10: K08.89 - CLINDAMYCIN HCL 150 MG CAPSULE reports throat closing and hospitalization with penicillin. Encouraged appropriate amounts of as needed [id number] analgesia. Schedule follow-up with dentist. Renato Parkinson MD documented in this encounter [facility] 11-27-2022 Note HNO ID: [id number] Author: Reyes Azevedo MD Service: ? Author Type: Physician Type: Progress Notes Filed: 11/27/2022 9:00 AM Note Text: SPINE SURGERY ESTABLISHED VISIT This is a virtual visit using [employer] Video Visit. It required patient-provider interaction for the medical decision making as documented below. I have communicated my name and active licensure. The patient's identity and physical location were verified at the time of this visit. Either the patient or their legal field service representative has been informed of the risks and benefits of -- and alternatives to -- treatment through a remote evaluation and consents to proceed with the evaluation remotely. DATE OF SERVICE: 11/27/2022 SUBJECTIVE: HPI:Tammy Woodruff is a 37 year old female presenting [...] breath at times. She did see a chicken cutter, and they felt she may have fibromyalgia, however she did not tolerate Lyrica. OBJECTIVE: PHYSICAL EXAM: Examined virtually Awake, alert, no acute distress Incision clean dry intact Moves arms and legs with grossly full strength X-ray today shows hardware in good position with no evidence of complication ASSESSMENT/PLAN (M48.02) Cervical stenosis of spine (primary encounter diagnosis) In summary, Tammy Woodruff is a very pleasant 37 year old [...] that she continue to follow with the chicken cutter for additional evaluation and treatments, as I [...] with vv and x-ray prior SIGNATURE: Reyes Azevedo MD PATIENT NAME: Tammy Woodruff DATE: November 27, 2022 TIME: 8:41 AM PAGER: I spent a total of 20 minutes on the date of the service which included preparing to see the patient, [id number] patient care, completing clinical documentation, obtaining and/or reviewing separately obtained history, performing a medically appropriate examination, counseling and educating the patient/family/caregiver, communicating with other HCPs (not separately reported), and independently interpreting results (not separately reported). [facility] 11-27-2022 History of Presen t illness Narrative SPINE SURGERY ESTABLISHED VISIT This is a virtual visit using [employer] Video Visit. It required patient-provider interaction for the medical decision making as documented below. I have communicated my name and active licensure. The patient's identity and physical location were verified at the time of this visit. Either the patient or their legal field service representative has been informed of the risks and benefits of -- and alternatives to -- treatment through a remote evaluation and consents to proceed with the evaluation remotely. DATE OF SERVICE: 11/27/2022 SUBJECTIVE: HPI:Tammy Woodruff is a 37 year old female presenting [...] breath at times. She did see a chicken cutter, and they felt she may have fibromyalgia, however she did not tolerate Lyrica. OBJECTIVE: PHYSICAL EXAM: Examined virtually Awake, alert, no acute distress Incision clean dry intact Moves arms and legs with grossly full strength X-ray today shows hardware in good position with no evidence of complication ASSESSMENT/PLAN (M48.02) Cervical stenosis of spine (primary encounter diagnosis) In summary, Tammy Woodruff is a very pleasant 37 year old [...] that she continue to follow with the chicken cutter for additional evaluation and treatments, as I [...] with vv and x-ray prior SIGNATURE: Reyes Azevedo MD PATIENT NAME: Tammy Woodruff DATE: November 27, 2022 TIME: 8:41 AM PAGER: I spent a total of 20 minutes on the date of the service which included preparing to see the patient, [id number] patient care, completing clinical documentation, obtaining and/or reviewing separately obtained history, performing a medically appropriate examination, counseling and educating the patient/family/caregiver, communicating with other HCPs (not separately reported), and independently interpreting results (not separately reported). documented in this encounter [facility] 11-25-2022 Note HNO ID: [id number] Author: Madisyn Sen RT(R) Service: ? Author Type: Registered Occupational Therapist Type: Progress Notes Filed: 11/25/2022 11:47 AM Note Text: Radiology Service Progress Note PATIENT NAME: Tammy Woodruff DATE OF SERVICE: November 25, 2022 TIME: [...] RT Inge(R) November 25, 2022 11:32 AM [facility] 09-17-2022 Note HNO ID: [id number] Author: Rita Leung RT(Bruno) Service: ? Author Type: Registered Occupational Therapist Type: Progress Notes Filed: 09/17/2022 2:28 PM Note Text: Radiology Service Progress Note PATIENT NAME: Tammy Woodruff DATE OF SERVICE: September 17, 2022 TIME: [...] IV DATA: Not applicable SIGNED BY: RT Troy(Bruno) September 17, 2022 2:27 PM [facility] 09-17-2022 Note HNO ID: [id number] Author: Garcia Cuellar MD Service: ? Author Type: Physician Type: Progress Notes Filed: 09/17/2022 3:16 PM Note Text: Garcia Cuellar MD Tammy Woodruff September 16, 2022 Referring Provider: PCP: Tonya [...] and inflammatory markers are negative except for JUMPBASTING CANVAS BASTER of 1.1. XR shows DJD and scoliosis. [...] 07/04/2022. The surgery helps with her pain, fitter tacker strength, dexterity, tingling sensation and balance. She [...] cervical x-ray today and will let Dr. Azevedo know about this. Her diffuse muscle and soft tissue pain probably (more content not included)... [facility] 09-17-2022 History of Presen t illness [...] and inflammatory markers are negative except for JUMPBASTING CANVAS BASTER of 1.1. XR shows DJD and scoliosis. [...] 07/04/2022. The surgery helps with her pain, fitter tacker strength, dexterity, tingling sensation and balance. She [...] cervical x-ray today and will let Dr. Azevedo know about this. Her diffuse muscle and soft tissue pain probably not caused by cervical myelopathy. Comprehensive investigation also does not reveal any positive serologies (JUMPBASTING CANVAS BASTER of 1.1 is essentially negative) or elevated [...] which included preparing to see the patient, [id number] patient care, completing clinical documentation, obtaining and/or [...] Swollen Glands: Yes documented in this encounter [facility] 08-22-2022 Miscellaneous Notes NI PHONE Name of caller : Tammy Relationship to patient : Self Was permission obtained from patient ? Yes Patient identified by Name and Date of . ( Tammy Woodruff, 1985). Yes Reason for Call : Patient called back and she would like to add the weight limit per her request: Start with a 15 lbs weight limit for 1st week, then a 20 lbs weight limit for 2nd week, then 30 lbs weight limit for 3rd week, then no limit if tolerating well. Alpa Saldana [facility] Name of caller : Tammy Relationship to patient : Self Was permission obtained from patient ? Yes Patient identified by Name and Date of . ( Tammy Woodruff, 1985). Yes Reason for Call : Patient called asking for RTW letter, she saw Dr. Azevedo and he cleared her to be back to work on Friday 08/25, patient would like a letter so she can show it to her employer, RTW letter can be sent through my chart per patient's request. Alpa Saldana documented in this encounter [facility] 08-21-2022 Note HNO ID: [id number] Author: Reyes Azevedo MD Service: ? Author Type: Physician Type: Progress Notes Filed: 08/21/2022 12:35 PM Note Text: SPINE SURGERY FOLLOW UP This is an in-person visit. CC: Yovany Avery SERVICE DATE: 08/21/22 SURGERY DATE: 07/04/2022 Tammy Woodruff is seen for 6 week post operative follow up s/p C5/6 ACDF. Preop, had arm pain, right thumb cramping, fitter tacker weakness, difficulty with dexterity, dropping things, and tingling in right arm, imbalance. Arm pain resolved Cramping thumb resolved Wire Wheeler improving Dexterity improving Not dropping things as [...] hoffmans Incision: c/d/i ASSESSMENT/PLAN In summary, Tammy Woodruff is a very pleasant 36 year old [...] 3 months with x-rays before appt Reyes Azevedo MD Associate Staff, Skull Base AND Spine Surgery Department of Neurological Surgery August 21, 2022 11:51 AM I spent a total of 20 minutes on the date of the service which included preparing to see the patient, [id number] patient care, completing clinical documentation, obtaining and/or reviewing separately obtained history, performing a medically appropriate examination, counseling and educating the patient/family/caregiver, ordering medications, tests, or procedures, and communicating with other HCPs (not separately reported). [facility] 08-21-2022 Instructions Reyes Azevedo MD - 08/21/2022 12:34 PM EDT Okay [...] not hesitate to call with questions. Reyes Azevedo MD documented in this encounter [facility] 08-21-2022 History of Presen t illness Narrative SPINE SURGERY FOLLOW UP This is an in-person visit. CC: Yovany Avery SERVICE DATE: 08/21/22 SURGERY DATE: 07/04/2022 Tammy Woodruff is seen for 6 week post operative follow up s/p C5/6 ACDF. Preop, had arm pain, right thumb cramping, fitter tacker weakness, difficulty with dexterity, dropping things, and tingling in right arm, imbalance. Arm pain resolved Cramping thumb resolved Wire Wheeler improving Dexterity improving Not dropping things as [...] hoffmans Incision: c/d/i ASSESSMENT/PLAN In summary, Tammy Woodruff is a very pleasant 36 year old [...] 3 months with x-rays before appt Reyes Azevedo MD Associate Staff, Skull Base & Spine Surgery Department of Neurological Surgery August 21, 2022 11:51 AM I spent a total of 20 minutes on the date of the service which included preparing to see the patient, [id number] patient care, completing clinical documentation, obtaining and/or reviewing separately obtained history, performing a medically appropriate examination, counseling and educating the patient/family/caregiver, ordering medications, tests, or procedures, and communicating with other HCPs (not separately reported). documented in this encounter [facility] 07-23-2022 Miscellaneous Notes SITUATION: only patient [...] for intervention/education details. documented in this encounter [facility] 07-22-2022 Miscellaneous Notes SITUATION: only patient [...] for intervention/education details. documented in this encounter [facility] 07-22-2022 Miscellaneous Notes OT contacted Dr. Azevedo's office via [employer] on 07/22/22 for the following: Requested to [...] and Tub Transfers with no device with [place]. Plan of care, goals, and discharge reviewed and agreed upon with patient/caregiver. RECOMMENDATION: Instructions include: discharged from OT and is active with PT. Post dc recommendations: follow up with physician as scheduled 08/18/22. See intervention summary for intervention/education details. documented in this encounter [facility] 07-22-2022 Note HNO ID: [id number] Author: Carolina Hendricks RN Service: ? Author Type: Registered Nurse Type: Progress Notes Filed: 07/22/2022 10:10 AM Note Text: Patient is here today for a 2 week postop VV/ incision check. Surgery on 07/04/22, C5/[address] Azevedo. Patient is recovering well postoperatively. No neurological symptoms or complaints compared to preoperative baseline. Pt states her preop pain is resolving/resolved. BUE symptoms resolving. Wire Wheeler issues resolved. Pt not requiring any pain [...] confirmed postoperative follow up appointment with Dr Azevedo on 08/18/22. Aware to phone office with any questions or concerns. RUBENS Briceno, RN [facility] 07-22-2022 History of Presen t illness Narrative Patient is here today for a 2 week postop VV/ incision check. Surgery on 07/04/22, C5/[address] Azevedo. Patient is recovering well postoperatively. No neurological symptoms or complaints compared to preoperative baseline. Pt states her preop pain is resolving/resolved. BUE symptoms resolving. Wire Wheeler issues resolved. Pt not requiring any pain [...] confirmed postoperative follow up appointment with Dr Azevedo on 08/18/22. Aware to phone office with any questions or concerns. RUBENS Briceno, RN documented in this encounter [facility] 07-07-2022 Miscellaneous Notes SITUATION: only patient [...] baths 3-4weeks postop. ASSESSMENT: Patient evaluated by [facility] physical therapy. Reviewed and explained homecare services. Plan of care, goals, and visit frequency developed, reviewed, and agreed upon with patient and/or caregiver. Spoke with Sarahy CORTES from Dr Azevedo's office about appears to be a clear [...] for intervention/education details.n/a documented in this encounter [facility] 07-05-2022 Note HNO ID: [id number] Author: Kelle Olivares RN Service: Care Management Author Type: Registered [...] ready to discharge home with home OT, [facility] accepting. F2F/home care orders in. Family to transport home. SIGNATURE: Kelle Marshall, RN PATIENT NAME: Tammy Woodruff DATE: July 05, 2022 TIME: 12:30 PM CONTACT #: [phone] [facility] 07-05-2022 Note HNO ID: [id number] Author: Vadlemar Nelson MD Service: General Internal Medicine Author Type: Physician Type: Progress Notes Filed: 07/05/2022 12:02 PM Note Text: PROGRESS NOTE - INTERNAL MEDICINE PATIENT NAME: Tammy Woodruff SERVICE DATE: 07/05/2022 SERVICE TIME: 12:00 PM ADMITTING PHYSICIAN: Reyes Azevedo MD ASSESSMENT AND PLAN S/p C5-6 ACDF [...] DATE: July 05, 2022 TIME: 12:00 PM [facility] 07-05-2022 Note HNO ID: [id number] Author: Wilmer Choi PA-C Service: Neurosurgery Author Type: Physician Bar Gauger And Lubricator Tender Type: Progress Notes Filed: 07/05/2022 11:10 AM Note Text: Please page the Neurosurgery group pager [phone] for any questions or concerns Patient is a 36 year old female presenting on POD #1, S/P C5/[address] Azevedo. Patient doing well today. States that her pain is under good control. Denies any new numbness or tingling. Patient has no other acute complaints or concerns at this time. Physical Exam: General: Awake, alert and in no acute distress. Patient is pleasant and cooperative Motor: UE BICEPS TRICEPS DELTS Wrist Ext Wrist Flex Wire Wheeler R 5/5 5/5 5/5 5/5 5/5 5/5 [...] presenting POD1 s/p C5/[address] Azevedo - Patient doing very well - PT/OT recommend home PT - Continue current pain medications - Medicine following for chronic conditions - IPC's and ambulation for DVT prophylaxis - Incentive Spirometry - Plan for DC later today - Plan of care discussed with patient and nursing staff Wilmer Choi PA-C Please page the Neurosurgery group pager [phone] for any questions or concerns [facility] 07-05-2022 Note HNO ID: [id number] Author: Interface Note Service: ? Author Type: ? Type: Progress Notes Filed: 07/05/2022 2:14 AM Note Text: Epic Scheduled Downtime: 07/05/2022 1:02:00 AM to 07/05/2022 2:01:00 AM [facility] 07-04-2022 Note HNO ID: [id number] Author: Monica Baker APRN.CRNA Service: Anesthesiology Author Type: Nurse Principal Clerk Typist Type: Anesthesia Procedure Notes Filed: 07/04/2022 8:09 AM Note Text: ANESTHESIOLOGY PROCEDURE NOTE PIV General Information Procedure Start Time/Medication Administration: 07/04/2022 7:45 AM Patient Location: OR Staffing BROADCAST OPERATIONS MANAGER: Monica Baker APRN.CRNA Preparation Sterility Preparation: hand hygiene performed prior to procedure, mask used Site Prep: alcohol Procedure Details Indication: need for IV access Needle Size/Type: 20 gauge angiocath Orientation: Right Location: Hand Imaging Guidance Used: No SIGNATURE: Monica Baker APRN.CRNA PATIENT NAME: Tammy Woodruff DATE: July 04, 2022 TIME: 8:08 AM CSN: [id number] [facility] 07-04-2022 Note HNO ID: [id number] Author: Monica Baker APRN.CRNA Service: Anesthesiology Author Type: Nurse Principal Clerk Typist Type: Anesthesia Procedure Notes Filed: 07/04/2022 8:07 AM Note Text: ANESTHESIOLOGY PROCEDURE NOTE Airway General Information Procedure Start Time/Medication Administration: 07/04/2022 7:40 AM Patient location during procedure: OR Timeout Performed Pre-procedure: timeout performed Consent Obtained: Yes Patient identity confirmed: arm band and care retail team member Staffing BROADCAST OPERATIONS MANAGER: Monica Baker APRN.BROADCAST OPERATIONS MANAGER Indications and Patient Condition Indications for airway [...] 1 Airway not difficult SIGNATURE: Monica Baker APRN.BROADCAST OPERATIONS MANAGER PATIENT NAME: Tammy Woodruff DATE: July 04, 2022 TIME: 8:07 AM CSN: [id number] [facility] 07-03-2022 Miscellaneous Notes NEUROSURGERY CARE COORDINATION [facility] PRE-OP EDUCATION PHONE CALL ? Spoke with patient Tammy Woodruff for pre-op education. Reviewed education materials verbally with patient, including pre-operative skin preparation, medications, NPO, DOS expectations, visitor policy, inpatient expectations, wound care, post-operative pain management. ? Provided the following education materials to patient: [facility] Spine Surgery [facility] Pre-/Post-Op Instruction packet, NPO/Skin Prep Instructions, Advance Directives info, Pain Management After Spine Surgery, Preparing for Post-Acute Care Instructions : Yes. ? Reviewed with patient to report to Pre/Post op services day of surgery: Yes. ? Reviewed with patient [facility] Surgery Pre-Op will call patient after 2 pm the day before to get surgery report time for day of surgery. Provided Pre-Op front end drupal developer phone number of [phone] for any questions: Yes. ? Patient made [...] 2022 1:39 PM documented in this encounter [facility] 06-26-2022 Miscellaneous Notes Type of form: FMLA Form received via email When form is completed, email back to patient's employer Form has been forwarded to Physician Desk: Dr. Manuela Mcdonnell PSS documented in this encounter [facility] 06-10-2022 Note HNO ID: [id number] Author: RT Wilma(R) Service: ? Author Type: Registered Occupational Therapist Type: Progress Notes Filed: 06/10/2022 12:31 PM Note Text: Radiology Service Progress Note PATIENT NAME: Tammy Woodruff DATE OF SERVICE: June 10, 2022 TIME: [...] RT Tiarra(R) June 10, 2022 12:31 PM [facility] 06-10-2022 History of Presen t illness Narrative Radiology Service Progress Note PATIENT NAME: Tammy Woodruff DATE OF SERVICE: June 10, 2022 TIME: [...] 2022 12:31 PM documented in this encounter [facility] 06-06-2022 Miscellaneous Notes Spoke with patient. She states her symptoms have been progressing. Today she has had two occasions with shocks through the body. Just recently she stood up from picking up her keys and felt sharp pain through her chest, the spine and into both arms. Whitman like an electrical shock. The pain and [...] Will send message to spine surgery Dr. Azevedo to update. She is scheduled for surgery 07/04. Advised to be seen at [place] ED for intractable pain, increased weakness/dexterity/balance difficulty. Yovany [...] back. Please advise. documented in this encounter [facility] 06-04-2022 History and physical note HISTORY AND PHYSICAL EXAMINATION SERVICE DATE: 06/04/2022 SERVICE TIME: 7:47 AM PRIMARY CARE PHYSICIAN: Tonya Arriaga CNP REASON FOR VISIT: Tammy Woodruff is a 36 year old female who is scheduled for Procedure(s): ARTHRODESIS ANT DISC PREP DISCECTOMY OSTEOPHYTECTOMY DECOMPRES S CORD/NERVE ROOT C' BELOW C2 (N/A) INSERT SPINE FIXATION DEVICE ADDITIONAL PROCEDURE, 2-3 VERTEBRAL SEGMENTS (N/A) MICROSURGICAL TECHNIQUE FOR SPINAL PROCEDURES (N/A) at the request of Dr. Reyes Azevedo for consultation. My final recommendation will be [...] topic. CHIEF COMPLAINT: Pre-op exam HPI: Tammy Woodruff is a 36 year old seen for PAC due to scheduled above surgery because of cervical myelopathy. 06/02/2022, Dr. Azevedo SUBJECTIVE Tammy Woodruff is a 36 year old female presenting alone. CHIEF COMPLAINT: neck and arm pain HISTORY OF PRESENT ILLNESS Past 1.5 years, has had neck pain, arm pain, cramping in right thumb, fitter tacker strength weaker. Difficulty with zippers, buttons, small [...] fevers. Neurological: No history of TIA's, stroke, OPTICAL LATHE OPERATOR tumor, impaired sensorium, hemiplegia, paraplegia or quadraplegia. No neurological symptoms or problems. Respiratory: Positive for: tobacco use (0.25ppd). Negative for: asthma, COPD, pneumonia within 6 weeks, URI < 2 weeks and obstructive sleep apnea. Cardiovascular: No history of HTN requiring medication, no history of angina, CHF, HI, cardiac surgery or stents. Denies rest pain, [...] > 1 time per night or hematuria. DRAIN TECHNICIAN: Negative for abnormal vaginal bleeding, abnormal vaginal [...] Prior to Admission medications as of 06/04/22 4382 Medication Sig Last Dose Taking gabapentin (NEURONTIN) [...] 370 QTC Calculation (Bazett) 413 Calculated P Woodward 15 Calculated R Woodward 48 Calculated T Woodward 14 Impression NORMAL SINUS RHYTHM NORMAL ECG No results found for this or any previous visit (from the past 91916 hour(s)). Assessment Patient has the following medical [...] large neck Non-male patient STOP-Bang Score: 0 [id number] Score: Age: <65 Sex: female CHF history: No Hypertension history: No Vascular disease history: No Diabetes history: No [id number] Score: 1 ARISCAT Score: Age: <=50 Preoperative [...] SIGNATURE: Lianet Restrepo APRN.CNP PATIENT NAME: Tammy Woodruff DATE: June 04, 2022 TIME: 3:18 PM PAGER/CONTACT #: documented in this encounter [facility] 06-04-2022 Instructions Lianet Restrepo APRN.CNP - 06/04/2022 3:18 PM EDT PATIENT PREOPERATIVE INSTRUCTIONS Reyes Azevedo MD has scheduled you for your procedure at this surgery center: [facility]: [phone] -- [address] [id number]. Please read below carefully for your personalized [...] Procedures: - YOU MUST HAVE A RESPONSIBLE MARKETING ENGINEER TAKE YOU HOME. A BRICK POINTER OR TANK BUILDER HELPER CANNOT BE MADE A RESPONSIBLE MARKETING ENGINEER. - We recommend that a responsible person stays with you overnight to take care of you. - You cannot stay in a hotel alone after outpatient surgery. You will not be permitted to have your surgery, if you do not have someone to take care of you. Arrival Time for Surgery: -You will receive a call from [facility] the afternoon before surgery after 2:30 pm (or Thursday for Thursday surgery) for a scheduled arrival time. - If you have not heard by 4 pm, please contact [facility] at [phone]. Please be aware that emergency situations arise, which may delay or change your surgical time. If this happens, we will notify you as soon as possible and regret any inconvenience. If you already have an Advance Directive, please fax a copy to [phone] or email to for it to be [...] into your chart that day. Lianet Restrepo APRN.YING documented in this encounter [facility] 06-03-2022 Miscellaneous Notes NI PHONE Name of caller : Tammy Relationship to patient : Self If not self Will need patient permission to release results or disclose health information with called documented in i. Was permission obtained from patient ? Yes Patient identified by Name and Date of . ( Tammy Woodruff, 1985). Yes Reason for Call : I have scheduled Tammy for her 2 week virtual post op and her 6 week post op. Her PACC was already scheduled. Number to return call [phone] Okay to leave a message ? Yes Thank you calling [facility] Neurological [place]. You will receive a return call within 48 hours ( or 2 business days if close to the weekend). If you feel that this is an urgent issue and needs immediate attention, it is recommended that you contact your primary care provider office or proceed to your nearest Urgent Care Center of Emergency Room ED for evaluation/treatment. documented in this encounter [facility] 06-03-2022 Miscellaneous Notes NEUROSURGERY CARE COORDINATION [facility] SURGERY SCHEDULING ? Patient Tammy Woodruff accepts surgery date of 07/04/[address] Azevedo. Planned procedure is C5/6 ACDF. ? PAT will be completed at [facility]. ? Medications reviewed: Yes. Medications to be stopped prior to surgery: other : N/A. ? Additional pre-op clearances needed: per [facility] provider recommendations. ? Any implanted devices: No. ? Transplant History No ? Patient will require optimization lab work: per [facility] provider recommendations ? Questions answered. Patient verbalizes understanding via teach back. Carolina Soliz RN June 03, 2022 9:58 AM documented in this encounter [facility] 06-02-2022 Note HNO ID: [id number] Author: Reyes Azevedo MD Service: ? Author Type: Physician Type: Progress Notes Filed: 06/02/2022 3:46 PM Note Text: SPINE SURGERY OUTPATIENT CONSULT This is an in-person visit. SERVICE DATE: 06/02/2022 PCP: Tonya Arriaga CNP REFERRING PROVIDER: Yovany Avery [address] [facility] [place] [address] Consult requested for an opinion regarding the evaluation and treatment of cervical disc herniation. My final impression and recommendations will be communicated back to the requesting physician by way of the shared medical record or letter via [place] mail. SUBJECTIVE Tammy Woodruff is a 36 year old female presenting alone. CHIEF COMPLAINT: neck and arm pain HISTORY OF PRESENT ILLNESS Past 1.5 years, has had neck pain, arm pain, cramping in right thumb, fitter tacker strength weaker. Difficulty with zippers, buttons, small [...] Cervical stenosis of spine In summary, Tammy Woodruff is a very pleasant 36 year old female with gait imbalance and progressive UE tingling and dexterity issues. We reviewed the imaging together, and I believe this patient has cervical stenosis with resultan (more content not included)... [facility] 06-02-2022 History of Presen t illness Narrative SPINE SURGERY OUTPATIENT CONSULT This is an in-person visit. SERVICE DATE: 06/02/2022 PCP: Tonya Arriaga CNP REFERRING PROVIDER: Yovany Avery [address] [facility] [place] [address] Consult requested for an opinion regarding the evaluation and treatment of cervical disc herniation. My final impression and recommendations will be communicated back to the requesting physician by way of the shared medical record or letter via US mail. SUBJECTIVE Tammy Woodruff is a 36 year old female presenting alone. CHIEF COMPLAINT: neck and arm pain HISTORY OF PRESENT ILLNESS Past 1.5 years, has had neck pain, arm pain, cramping in right thumb, fitter tacker strength weaker. Difficulty with zippers, buttons, small [...] Cervical stenosis of spine In summary, Tammy Woodruff is a very pleasant 36 year old [...] this case, I recommend C5/6 ACDF. Tammy Woodruff is clinically indicated and wishes to pursue Anterior Cervical Discectomy and Fusion at C5/6 The risks, benefits, and anticipated outcomes of the procedure/treatment/test, the alternatives to the procedure/treatment/test and their risks and benefits, and the roles and tasks of the personnel to be involved were discussed with the patient or the patient s personal field service representative. The patient has elected to schedule [...] of Care - RNF obs SIGNATURE: Reyes Azevedo MD PATIENT NAME: Tammy Woodruff DATE: June 02, 2022 TIME: 2:50 PM PAGER: I spent a total of 50 minutes on the date of the service which included preparing to see the patient, [id number] patient care, completing clinical documentation, obtaining and/or reviewing separately obtained history, performing a medically appropriate examination, counseling and educating the patient/family/caregiver, and communicating with other HCPs (not separately reported). documented in this encounter [facility] 05-27-2022 Note HNO ID: [id number] Author: Yovany Avery PA-C Service: ? Author Type: Physician Bar Gauger And Lubricator Tender Type: Progress Notes Filed: 05/27/2022 2:52 PM Note Text: Spine Care Path Neck Pain - Chronic (> 12 weeks) Follow Up Visit [facility] VISIT This Team Access Model visit is a virtual encounter. It required patient-provider interaction for the medical decision making as documented below. Tammy Woodruff has consented to this telephone and/or audio encounter. Persons Present: patient SUBJECTIVE HISTORY OF PRESENT ILLNESS: Tammy Woodruff is a 36 year old female who presents with a chief complaint of low back, neck, arm, and leg pain. Here for MRI review. Symptoms are mostly unchanged. Low back pain has been worse the past two days. Pain in neck radiating across the shoulder blades. Aching throughout the arms to all the fingers (R>L). Decreased fitter tacker strength. Still dropping things with the hands. [...] warning before this happens. She did not bead picker the gabapentin. She was not sure about [...] the right thumb. She feels like her fitter tacker strength in both hands is weaker than [...] 0.5 PPD. Working on quitting. 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 PAIN EVALUATION 05/25/2022202005/27/2022 1203 Pain Level: 9 9 Pain Location: Back Back Description: Aching;Burning;Cramping;Dull;Pul sating;Radiating;Sharp;Stiffness ;Tightness; Tingling Stabbing;Dull;Achin (more content not included)... [facility] 05-21-2022 Note HNO ID: [id number] Author: RT Gurpreet(R) Service: ? Author Type: Technologist Type: Progress Notes Filed: 05/21/2022 2:27 PM Note Text: Radiology Service Progress Note PATIENT NAME: Tammy Woodruff DATE OF SERVICE: May 21, 2022 TIME: [...] RT Gurpreet(R) May 21, 2022 2:27 PM [facility] 04-29-2022 Note HNO ID: [id number] Author: Dank Springer PT Service: ? Author [...] THERAPY EVALUATION PLAN OF CARE: Assessment: Tammy Woodruff presents with chief complaint of neck pain [...] Planned: 16 Planned Treatment Interventions: Therapeutic exercise (89895), Neuromuscular re-education (74896), Manual therapy (22062), Therapeutic activities (29470), Self-correction management (75771), Patient/Family/Caregiver Education, Body Mechanics Training, General Conditioning, [...] and agreed upon by patient/family. 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 [facility] 04-29-2022 History of Presen t illness Narrative Episode Visit Count: 1 Therapist That Will Accept/Oversee The Plan Of Care: Dank Springer PT Start of Care Date: 04/29/22 Onset Date: 04/29/20 Plan of Care Certification Date: 04/29/22 Next Certification Due Date: 06/24/22 Patient Identified by Name and Date of : Yes REHABILITATION AND SPORTS THERAPY PHYSICAL THERAPY EVALUATION PLAN OF CARE: Assessment: Tammy Woodruff presents with chief complaint of neck pain [...] Planned: 16 Planned Treatment Interventions: Therapeutic exercise (00270), Neuromuscular re-education (64475), Manual therapy (47590), Therapeutic activities (09357), Self-correction management (24909), Patient/Family/Caregiver Education, Body Mechanics Training, General Conditioning, [...] and agreed upon by patient/family. 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 Author Type: Physician Bar Gauger And Lubricator Tender Type: Progress Notes Filed: 04/23/2022 2:45 PM Note Text: Spine Care Path Neck Pain - Chronic (> 12 weeks) Initial Exam SUBJECTIVE HISTORY OF PRESENT ILLNESS: Tammy Woodruff is a 36 year old female who [...] the right thumb. She feels like her fitter tacker strength in both hands is weaker than [...] 0.5 PPD. Working on quitting. 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 Interventions: Medications: ibuprofen PRN, tylenol PRN -Previously [...] PROBLEM LIST [facility] (more content not included)... [facility] 04-23-2022 Instructions Yovany Avery PA-C - [...] office if questions. documented in this encounter [facility] 04-23-2022 History of Presen t illness Narrative Spine Care Path Neck Pain - Chronic (> 12 weeks) Initial Exam SUBJECTIVE HISTORY OF PRESENT ILLNESS: Tammy Woodruff is a 36 year old female who [...] the right thumb. She feels like her fitter tacker strength in both hands is weaker than [...] 0.5 PPD. Working on quitting. 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 Interventions: Medications: ibuprofen PRN, tylenol PRN -Previously [...] which included preparing to see the patient, [id number] patient care, completing clinical documentation, obtaining and/or [...] SIGNATURE: Yovany Avery PA-C PATIENT NAME: Tammy Wodoruff DATE: April 23, 2022 TIME: 8:56 AM documented in this encounter [facility] 03-17-2022 Note HNO ID: [id number] Author: Garcia Cuellar MD Service: ? Author Type: Physician Type: Progress Notes Filed: 03/17/2022 1:44 PM Note Text: Garcia Cuellar MD Tammy Woodruff March 17, 2022 Referring Provider: PCP: Tonya Arriaga CNP Chief Complaint: Patient presents with: New Patient HPI:Tammy Woodruff is a 36 year old female who [...] old female presents for rheumatology evaluation at [facility] on March 17, 2022. Chronic diffuse [...] sources of he (more content not included)... [facility] 03-17-2022 History of Presen t illness Narrative Garcia Cuellar MD Tammy Woodruff March 17, 2022 Referring Provider: PCP: Tonya Arriaga CNP Chief Complaint: Patient presents with: New Patient HPI:Tammy Woodruff is a 36 year old female who [...] old female presents for rheumatology evaluation at [facility] on March 17, 2022. Chronic diffuse [...] Return Visit: I will contact her through [employer] for results. We will make a plan after the results are available. I spent a total of 70 minutes on the date of the service which included preparing to see the patient, [id number] patient care, completing clinical documentation, obtaining and/or reviewing separately obtained history, performing a medically appropriate examination, counseling and educating the patient/family/caregiver, and ordering medications, tests, or procedures. Garcia Cuellar MD Referring Provider: PCP: Tonya Arriaga CNP documented in this encounter [facility] 12-24-2021 Note HNO ID: [id number] Author: Jamaal Sebastian MD Service: ? Author [...] others. I have seen and examined Tammy Woodruff. I have discussed the case and the management of this patient's care with the Resident/Fellow, if applicable. I also have reviewed and agree with the assessment and plan as stated above and agree with all of its relevant components. Jamaal Sebastian MD December 24, 2021 10:14 AM [facility] 12-24-2021 Instructions Jamaal Sebastian MD - 12/24/2021 10:15 AM EDT Images from the original note were not included. documented in this encounter [facility] 12-24-2021 History of Presen t illness [...] others. I have seen and examined Tammy M Ranjan. I have discussed the case and the management of this patient's care with the Resident/Fellow, if applicable. I also have reviewed and agree with the assessment and plan as stated above and agree with all of its relevant components. Jamaal Sebastian MD December 24, 2021 10:14 AM documented in this encounter [facility] 06-05-2021 Miscellaneous Notes Called client services and they will be running the celiac screening today. Patient is asking what IGA Blood is testing for. Not exactly sure how to answer this. documented in this encounter [facility] 06-03-2021 Miscellaneous Notes Patient calls in [...] Dior Hendricks RN documented in this encounter [facility] 05-31-2021 Miscellaneous Notes Done. Lauren Esquivel APRN.YING A new order for H-Pylori stool needs placed. Previous one has . documented in this encounter [facility] 05-29-2021 Miscellaneous Notes Patient returned call and given provider's message below with verbalized understanding. LEFT MESSAGE FOR PATIENT TO CALL OFFICE. Please call patient - I have placed the order for celiac testing based on her results from her EGD. Thanks Lauren Esquivel APRN.CNP Biopsies from small bowel/duodenum showed mildly increased lymphocytes. Recommend checking celiac serology if not already done. Otherwise biopsies are unremarkable. Follow up with Ms Esquivel in GI clinic. Mckinley Mendez MD documented in this encounter [facility] 05-23-2021 Nurse Note 100mL of LR given in recovery. Iv was intact, no redness. Hob up. Passing air. States ready to go. Production Tech called - here. Assisted pt w/dressing. All belongings given. Dr was already at the bedside. No questions. Dr at the bedside. No questions. Production Tech called - here. Encouraged to pass air documented in this encounter [facility] 05-23-2021 History and physical note HISTORY [...] Mckinley Mendez MD documented in this encounter [facility] 05-21-2021 History of Presen t illness Narrative This note was created using [employer]. Subjective Tammy Avila is a 35 year [...] Tiera Waddell PA-C documented in this encounter [facility] 05-21-2021 Miscellaneous Notes Phone call placed patient advised (see prior provider encounter) Patient verbalized understanding, agreed with plan of care. Katelyn Corcoran LPN Let patient know xrays were read by radiology as no acute bony abnormality. Continue splint as needed, ice, rest. Follow up with ortho/pcp as needed if not getting better. documented in this encounter [facility] Heartburn History of Helicobacter pylori infection Personal history of other infectious and parasitic disease Epigastric pain Abdominal pain, epigastric Nausea Nausea alone Dark stools Nonspecific abnormal finding in stool contents Loose stools Abnormal feces [facility] Diagnosis Nausea- Primary Nausea alone Epigastric pain Abdominal pain, epigastric [facility] H. pylori infection- Primary Helicobacter pylori (H. pylori) [facility] Diagnosis Progressive peripheral pterygium of right eye- Primary Peripheral pterygium, progressive Dry eye syndrome of both eyes [facility] Diagnosis Multiple joint pain- Primary Pain in joint, multiple sites Chronic midline low back pain with bilateral sciatica Neck pain Cervicalgia Positive JONY (antinuclear antibody) Other and unspecified nonspecific immunological findings Numbness and tingling of both feet [facility] Diagnosis Chronic bilateral low back pain with right-sided sciatica- Primary Pain in both upper extremities Neck pain Cervicalgia Imbalance Abnormality of gait Bladder dysfunction Other functional disorder of bladder Impaired dexterity [facility] Diagnosis Chronic bilateral low back pain with right-sided sciatica Pain in both upper extremities Neck pain Cervicalgia Imbalance Abnormality of gait Impaired dexterity Acute back pain with sciatica, right Cervicalgia [facility]* Diagnosis Cervical myelopathy (HCC)- Primary Cervical spondylosis with myelopathy Cervical stenosis of spine Spinal stenosis in cervical region [facility]* Diagnosis Pre-operative examination- Primary Preoperative examination, [...] spondylosis with myelopathy [facility]* Diagnosis Presence of surgical incision- Primary [facility]* Diagnosis Cervical myelopathy (HCC)- Primary Cervical spondylosis with myelopathy [facility]* Diagnosis Fibromyalgia- Primary Mylagia and myositis, unspecified Cervical myelopathy (HCC) Cervical spondylosis with myelopathy [facility]* Diagnosis Cervical stenosis of spine- Primary Spinal stenosis in cervical region [facility]* Diagnosis Cervical myelopathy (HCC) Cervical spondylosis with myelopathy [facility]* Diagnosis Cervical myelopathy (HCC) Cervical spondylosis with myelopathy [facility] Diagnosis Toothache- Primary Unspecified disorder of the teeth and supporting structures documented in this encounter [facility] home Plan of care note* Visit Details [...] sepsis Completed SPO2 Description: Notify Dr. Dr Azevedo if pulse ox is <92% at rest. [...] to call 911. [facility] Visit Details Visit Type -PRODUCT TESTER FIBERGLASS ROUTINE Discipline -Physical Therapy Problems Problem Description [...] sepsis Completed SPO2 Description: Notify Dr. Dr Azevedo if pulse ox is <92% at rest. [...] to call 911. [facility] Visit [...] sepsis Completed SPO2 Description: Notify Dr. Dr Azevedo if pulse ox is <92% at rest. [...] DVT and PE documented in this encounter [facility] home Plan of care note* Visit Details Visit Type -PT AGENCY DC W Gibran GRAYT Discipline -Physical Therapy Problems Problem Description Start [...] sepsis Completed SPO2 Description: Notify Dr. Dr Azevedo if pulse ox is <92% at rest. [...] include: verbal cues. documented in this encounter [facility] for referral (narrative)* Diagnostic Procedure Only (Urgent) - Closed Specialty Diagnoses / Procedures Referred By Amos trejo Referred To Contact XR IMAGING Diagnoses Finger pain, right Procedures XR DIGIT GENERAL 3V FRONTAL/LAT/OBL RIGHT RADEX FINGR MINIMUM 2 VIEWS Tiera Waddell PA-C [address] [place] [address] Xr Imaging Referral ID Status Reason Start Date Expiration Date V isits Requested Visits Authorized [id number] Closed Auto-Generate d Referral 05/21/2021 06/20/2022 1 1 [facility] for referral (narrative)* Outpatient Procedure (Routine) - Closed Specialty Diagnoses / Procedures Referred By Contac t Referred To Contact [facility] Diagnoses Heartburn History of Helicobacter pylori infection Epigastric pain Nausea Dark stools Loose stools Procedures EGD DIAGNOSTIC ESOPHAGOGASTRODUODENOSCO PY TRANSORAL DIAGNOSTIC Lauren Esqiuvel APRN.CNP [address] [place] [address] [facility] [place] [address] [place] [address] Referral ID Status Reason Start Date Expiration Date V isits Requested Visits Authorized [id number] Closed Auto-Generate d Referral 04/10/2021 04/10/2022 1 1 [facility] for referral (narrative)* Diagnostic Procedure Only (Routine) - Closed Specialty Diagnoses / Procedures Referred By Contac t Referred To Contact XR IMAGING Diagnoses Multiple joint pain Chronic midline low back pain with bilateral sciatica Neck pain Procedures XR CERV OTHER 4V AP/LAT/OBL RADEX SPINE CERVICAL 4 OR 5 VIEWS Garcia Cuellar MD [address] [place], [place] [id number] Xr Imaging Referral ID Status Reason Start Date Expiration Date V isits Requested Visits Authorized [id number] Closed Auto-Generate d Referral 03/17/2022 04/16/2023 1 1 * Diagnostic Procedure Only (Routine) - Closed Specialty Diagnoses / Procedures Referred By Contac t Referred To Contact XR IMAGING Diagnoses Multiple joint pain Chronic midline low back pain with bilateral sciatica Neck pain Procedures XR LUMBAR GENERAL 3V AP/LAT/L5-S1 RADEX SPINE LUMBOSACRAL 2/3 VIEWS Garcia Cuellar MD [address] [place], [place] [id number] Xr Imaging Referral ID Status Reason Start Date Expiration Date V isits Requested Visits Authorized [id number] Closed Auto-Generate d Referral 03/17/2022 04/16/2023 1 1 [facility] for referral (narrative)* Outpatient Procedure (Routine) - Closed Specialty Diagnoses / Procedures Referred By Contac t Referred To Contact [facility] Diagnoses Pre-operative examination Procedures ECG COMPLETE ECG ROUTINE ECG W/LEAST 12 LDS W/I&R Lianet Restrepo APRN.CNP [address] [place] [address] [facility] [place] [address] [place] [address] Referral ID Status Reason Start Date Expiration Date V isits Requested Visits Authorized [id number] Closed Auto-Generate d Referral 06/04/2022 06/04/2023 1 1 [facility] for referral (narrative)* Diagnostic Procedure Only (Routine) - Pending Review Specialty Diagnoses / Procedures Referred By Contac t Referred To Contact XR IMAGING Diagnoses Cervical myelopathy (HCC) Procedures XR CERV GENERAL 2V AP/LAT RADEX SPINE CERVICAL 2 OR 3 VIEWS Reyes Azevedo MD [address] [place] [address] Xr Imaging Referral ID Status Reason Start Date Expiration Date Visits Requested Visits Authorized [id number] Pending Review Auto-Generat ed Referral 11/21/2022 09/20/2023 1 1 [facility] for referral (narrative)* Diagnostic Procedure Only (Routine) - Closed Specialty Diagnoses / Procedures Referred By Contac t Referred To Contact XR IMAGING Diagnoses Fibromyalgia Cervical myelopathy (HCC) Procedures XR CERV GENERAL 2V AP/LAT RADEX SPINE CERVICAL 2 OR 3 VIEWS Garcia Cuellar MD [address] [place] [address] Xr Imaging Referral ID Status Reason Start Date Expiration Date V isits Requested Visits Authorized [id number] Closed Auto-Generate d Referral 09/17/2022 10/17/2023 1 1 [facility] for referral (narrative)* Diagnostic Procedure Only (Routine) - Closed Specialty Diagnoses / Procedures Referred By Contac t Referred To Contact XR IMAGING Diagnoses Cervical myelopathy (HCC) Procedures XR CERV GENERAL 2V AP/LAT RADEX SPINE CERVICAL 2 OR 3 VIEWS Reyes Azevedo MD [address] [id number] [place] [address] Referral ID Status Reason Start Date Expiration Date V isits Requested Visits Authorized [id number] Closed Auto-Generate d Referral 11/21/2022 09/20/2023 1 1 [facility] for visit Narrative* Outpatient Procedure (Routine) - Closed Specialty Diagnoses / Procedures Referred By Contac t Referred To Contact [facility] Diagnoses Heartburn History of Helicobacter pylori infection Epigastric pain Nausea Dark stools Loose stools Procedures COLONOSCOPY DIAGNOSTIC COLONOSCOPY FLX DX W/COLLJ SPEC WHEN PFRMD Lauren Esquivel APRN.ROUTE SALES DELIVERY DRIVER [address] [place] [address] [facility] [place] [address] [place] [address] Referral ID Status Reason Start Date Expiration Date V isits Requested Visits Authorized [id number] Closed Auto-Generate d Referral 04/10/2021 04/10/2022 1 1 [facility] for visit Narrative* Diagnostic Procedure Only (Routine) - Closed Specialty Diagnoses / Procedures Referred By Contac t Referred To Contact XR IMAGING Diagnoses Cervical myelopathy (HCC) Procedures XR CERV GENERAL 2V AP/LAT RADEX SPINE CERVICAL 2 OR 3 VIEWS Reyes Azevedo MD [address] [id number] Xr Imaging [id number] Referral ID Status Reason Start Date Expiration Date V isits Requested Visits Authorized [id number] Closed Auto-Generate d Referral 11/21/2022 09/20/2023 1 1 [facility] Summary Purpose Family History No Family History Records FoundNo Family History Records FoundNo Family History Records Found Advance Directives Documents on File Type Date Recorded 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 Advance Directive(s) 05/23/2021 9:59 AM Documents on File Type Date Recorded 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 Advance Directive(s) 05/23/2021 9:59 AM [...] Inactivated Comments Full Code 07/07/2022 12:52 PM Date Activated Date Inactivated Comments 07/07/2022 12:52 PM Medications Administered Section Active Administered Medications - up to 3 most recent administrations Medication Order MAR Action Action Date Dose Rate Site PHENYLephrine 2.5 % 1 Drop (AK-DILATE, RYNE-SYNEPHRINE) 1 Drop, BOTH EYES, DIRECTED, Starting on Thu12/24/21 at 1000, Until Thu12/24/21 at 215, Administer for dilation PROTECT FROM LIGHT Given [...] LUMBAR W/O CONTRAST MATERIAL Yovany Avery PA-C [address] [place] [address] Mr Imaging Referral ID Status Reason Start Date Expiration Date Visits Requested Visits Authorized [id number] Pending Review Auto-Generat ed Referral 04/23/2022 05/23/2023 1 1 Specialty Diagnoses / Procedures Referred By Contac t Referred To Contact MR IMAGING Diagnoses Pain in both upper extremities Neck pain Imbalance Bladder dysfunction Impaired dexterity Procedures MRI CERVICAL SPINE WO IVCON MRI SPINAL CANAL CERVICAL W/O CONTRAST MATRL Yovany Avery PA-C [address] [id number] [facility] Referral ID Status Reason Start Date Expiration Date Visits Requested Visits Authorized [id number] Pending Review Auto-Generat ed Referral 04/23/2022 05/23/2023 1 1 Specialty Diagnoses / Procedures Referred By Contac t Referred To Contact [facility] Diagnoses Chronic bilateral low back pain with right-sided sciatica Pain in both upper extremities Neck pain Imbalance Impaired dexterity Procedures CONSULT TO PHYSICAL THERAPY PHYSICAL THERAPY EVALUATION HIGH COMPLEX 45 MINS Yovany Avery PA-C [address] [phone] [facility] [address] [address] Referral ID Status Reason Start Date Expiration Date Visits Requested Visits Authorized [id number] Authorized Auto-Generat ed Referral 04/23/2022 07/23/2022 1 1 Specialty Diagnoses / Procedures Referred By Contac t Referred To Contact [facility] Diagnoses Chronic bilateral low back pain with right-sided sciatica Pain in both upper extremities Neck pain Imbalance Impaired dexterity Acute back pain with sciatica, right Cervicalgia Procedures PT REHAB FOLLOW UP ORDER THERAPEUTIC EXERCISES RE, EA 15 MIN. Pt [facility] [address] [place] [address] [facility] [address] [address] Referral ID Status Reason Start Date Expiration Date Visits Requested Visits Authorized [id number] Pending Review PCP Requested Referral Auto-Generate d Referral 04/29/2022 07/28/2022 1 1 Specialty Diagnoses / Procedures Referred By Contac t Referred To Contact CT IMAGING Diagnoses Cervical myelopathy (HCC) Procedures CT CERVICAL SPINE WO IVCON CT CERVICAL SPINE W/O CONTRAST MATERIAL Reyes Azevedo MD [address] [place] [address] [place] [address] Referral ID Status Reason Start Date Expiration Date V isits Requested Visits Authorized [id number] Closed Auto-Generate d Referral 06/04/2022 08/03/2022 1 1 Additional Source Comments INFORMATION SOURCE (unrecogn ized section and content) DATE CREATED AUTHOR AUTHOR'S ORGANIZ ATION 07/06/2022 [facility] DATE CREATED AUTHOR AUTHOR'S ORGANIZ ATION 11/27/2022 [facility] Source Comments (unrecognize d section and content) In the event this informatio n is protected by the Federal Confidentiality of Alcohol and Drug Abuse Patient Records regulations: The Federal rules restrict any use of the information to criminally investigate or prosecute any alcohol or drug abuse patient.[facility] event this information is protected by the Federal Confidentiality of Alcohol and Drug Abuse Patient Records regulations: The Federal rules restrict any use of the information to criminally investigate or prosecute any alcohol or drug abuse patient.[facility] the event this information is protected by the Federal Confidentiality of Alcohol and Drug Abuse Patient Records regulations: The Federal rules restrict any use of the information to criminally investigate or prosecute any alcohol or drug abuse patient.[facility] the event this information is protected by the Federal Confidentiality of Alcohol and Drug Abuse Patient Records regulations: The Federal rules restrict any use of the information to criminally investigate or prosecute any alcohol or drug abuse patient.[facility] the event this information is protected by the Federal Confidentiality of Alcohol and Drug Abuse Patient Records regulations: The Federal rules restrict any use of the information to criminally investigate or prosecute any alcohol or drug abuse patient.[facility] the event this information is protected by the Federal Confidentiality of Alcohol and Drug Abuse Patient Records regulations: The Federal rules restrict any use of the information to criminally investigate or prosecute any alcohol or drug abuse patient.[facility] the event this information is protected by the Federal Confidentiality of Alcohol and Drug Abuse Patient Records regulations: The Federal rules restrict any use of the information to criminally investigate or prosecute any alcohol or drug abuse patient.[facility] the event this information is protected by the Federal Confidentiality of Alcohol and Drug Abuse Patient Records regulations: The Federal rules restrict any use of the information to criminally investigate or prosecute any alcohol or drug abuse patient.[facility] the event this information is protected by the Federal Confidentiality of Alcohol and Drug Abuse Patient Records regulations: The Federal rules restrict any use of the information to criminally investigate or prosecute any alcohol or drug abuse patient.[facility] the event this information is protected by the Federal Confidentiality of Alcohol and Drug Abuse Patient Records regulations: The Federal rules restrict any use of the information to criminally investigate or prosecute any alcohol or drug abuse patient.[facility] the event this information is protected by the Federal Confidentiality of Alcohol and Drug Abuse Patient Records regulations: The Federal rules restrict any use of the information to criminally investigate or prosecute any alcohol or drug abuse patient.[facility] the event this information is protected by the Federal Confidentiality of Alcohol and Drug Abuse Patient Records regulations: The Federal rules restrict any use of the information to criminally investigate or prosecute any alcohol or drug abuse patient.[facility] the event this information is protected by the Federal Confidentiality of Alcohol and Drug Abuse Patient Records regulations: The Federal rules restrict any use of the information to criminally investigate or prosecute any alcohol or drug abuse patient.[facility] HospitalIn the event this information is protected by the Federal Confidentiality of Alcohol and Drug Abuse Patient Records regulations: The Federal rules restrict any use of the information to criminally investigate or prosecute any alcohol or drug abuse patient.[facility] HospitalIn the event this information is protected by the Federal Confidentiality of Alcohol and Drug Abuse Patient Records regulations: The Federal rules restrict any use of the information to criminally investigate or prosecute any alcohol or drug abuse patient.[facility] HospitalIn the event this information is protected by the Federal Confidentiality of Alcohol and Drug Abuse Patient Records regulations: The Federal rules restrict any use of the information to criminally investigate or prosecute any alcohol or drug abuse patient.[facility] HospitalIn the event this information is protected by the Federal Confidentiality of Alcohol and Drug Abuse Patient Records regulations: The Federal rules restrict any use of the information to criminally investigate or prosecute any alcohol or drug abuse patient.[facility] HospitalIn the event this information is protected by the Federal Confidentiality of Alcohol and Drug Abuse Patient Records regulations: The Federal rules restrict any use of the information to criminally investigate or prosecute any alcohol or drug abuse patient.[facility] HospitalIn the event this information is protected by the Federal Confidentiality of Alcohol and Drug Abuse Patient Records regulations: The Federal rules restrict any use of the information to criminally investigate or prosecute any alcohol or drug abuse patient.[facility] HospitalIn the event this information is protected by the Federal Confidentiality of Alcohol and Drug Abuse Patient Records regulations: The Federal rules restrict any use of the information to criminally investigate or prosecute any alcohol or drug abuse patient.[facility] HospitalIn the event this information is protected by the Federal Confidentiality of Alcohol and Drug Abuse Patient Records regulations: The Federal rules restrict any use of the information to criminally investigate or prosecute any alcohol or drug abuse patient.[facility] HospitalIn the event this information is protected by the Federal Confidentiality of Alcohol and Drug Abuse Patient Records regulations: The Federal rules restrict any use of the information to criminally investigate or prosecute any alcohol or drug abuse patient.[facility] HospitalIn the event this information is protected by the Federal Confidentiality of Alcohol and Drug Abuse Patient Records regulations: The Federal rules restrict any use of the information to criminally investigate or prosecute any alcohol or drug abuse patient.[facility] HospitalIn the event this information is protected by the Federal Confidentiality of Alcohol and Drug Abuse Patient Records regulations: The Federal rules restrict any use of the information to criminally investigate or prosecute any alcohol or drug abuse patient.[facility] HospitalIn the event this information is protected by the Federal Confidentiality of Alcohol and Drug Abuse Patient Records regulations: The Federal rules restrict any use of the information to criminally investigate or prosecute any alcohol or drug abuse patient.[facility] HospitalIn the event this information is protected by the Federal Confidentiality of Alcohol and Drug Abuse Patient Records regulations: The Federal rules restrict any use of the information to criminally investigate or prosecute any alcohol or drug abuse patient.[facility] HospitalIn the event this information is protected by the Federal Confidentiality of Alcohol and Drug Abuse Patient Records regulations: The Federal rules restrict any use of the information to criminally investigate or prosecute any alcohol or drug abuse patient.[facility] HospitalIn the event this information is protected by the Federal Confidentiality of Alcohol and Drug Abuse Patient Records regulations: The Federal rules restrict any use of the information to criminally investigate or prosecute any alcohol or drug abuse patient.[facility] HospitalIn the event this information is protected by the Federal Confidentiality of Alcohol and Drug Abuse Patient Records regulations: The Federal rules restrict any use of the information to criminally investigate or prosecute any alcohol or drug abuse patient.[facility] HospitalIn the event this information is protected by the Federal Confidentiality of Alcohol and Drug Abuse Patient Records regulations: The Federal rules restrict any use of the information to criminally investigate or prosecute any alcohol or drug abuse patient.[facility] HospitalIn the event this information is protected by the Federal Confidentiality of Alcohol and Drug Abuse Patient Records regulations: The Federal rules restrict any use of the information to criminally investigate or prosecute any alcohol or drug abuse patient.[facility] HospitalIn the event this information is protected by the Federal Confidentiality of Alcohol and Drug Abuse Patient Records regulations: The Federal rules restrict any use of the information to criminally investigate or prosecute any alcohol or drug abuse patient.[facility] HospitalIn the event this information is protected by the Federal Confidentiality of Alcohol and Drug Abuse Patient Records regulations: The Federal rules restrict any use of the information to criminally investigate or prosecute any alcohol or drug abuse patient.[facility] Reason for Visit (unrecogniz ed section [...] HIGH COMPLEX 45 MINS Yovany Avery PA-C [address] [place] [address] [facility] [place] [address] [place] [address] Referral ID Status Reason Start Date Expiration Date V isits Requested Visits Authorized [id number] Closed Auto-Generate d Referral 04/23/2022 07/23/2022 1 1 Reason Comments New Patient Reason Comments surgery scheduling Reason Comments Appointment Reason Comments Consult Reason Comments Patient Update Reason Comments Forms Reason Comments preop info Specialty Diagnoses / Procedures Referred By Contac t Referred To Contact [facility] Home Care [address] [place] [address] Referral ID Status Reason Start Date Expiration Date Visits Re quested Visits Authorized [id number] 1 1 Reason Comments Post Op Reason Comments Patient Question Reason Comments Joint Pain Reason Comments Established Patient Reason Comments Radiology CT Specialty Diagnoses / Procedures Referred By Contac t Referred To Contact CT IMAGING Diagnoses Cervical myelopathy (HCC) Procedures CT CERVICAL SPINE WO IVCON CT CERVICAL SPINE W/O CONTRAST MATERIAL Reyes Azevedo MD [address] [place] [address] [place] [address] Referral ID Status Reason Start Date Expiration Date V isits Requested Visits Authorized [id number] Closed Auto-Generate d Referral 06/04/2022 08/03/2022 1 1 Reason Comments Pain, Sinus Sinus pain and press ure-possibly a tooth ache x 4 days Care Teams (unrecognized sec tion and content) Receptionist Relationship Specialty Start Date End Date Lauren Daniel PCP - General Family Practice 10/05/18 Dipak Henao MD [address] [place] [address] [facility] 03/09/20 Receptionist Relationship Specialty Start Date End Date Lauren Daniel PCP - General Family Practice 10/05/18 Dipak Henao MD [address] [facility] [place] [address] [facility] 03/09/20 Receptionist Relationship Specialty Start Date End Date Lauren Daniel PCP - General Family Practice 10/05/18 Dipak Henao MD [address] [place] [address] [facility] 03/09/20 Receptionist Relationship Specialty Start Date End Date Lauren Daniel PCP - General Family Practice 10/05/18 Dipak Henao MD [address] [facility] [place] [address] [facility] 03/09/20 Receptionist Relationship Specialty Start Date End Date Laruen Daniel PCP - General Family Practice 10/05/18 Dipak Henao MD [address] [facility] [place] [address] [facility] 03/09/20 Receptionist Relationship Specialty Start Date End Date Lauren Daniel PCP - General Family Practice 10/05/18 Dipak Henao MD [address] [place] [address] [facility] 03/09/20 Receptionist Relationship Specialty Start Date End Date Lauren Daniel PCP - General Family Practice 10/05/18 Dipak Henao MD [address] [place] [address] [facility] 03/09/20 Receptionist Relationship Specialty Start Date End Date Lauren Daniel PCP - General Family Practice 10/05/18 Dipak Henao MD [address] [facility] [place] [address] [facility] 03/09/20 Receptionist Relationship Specialty Start Date End Date Tonya Arriaga [employer]IVERY [employer]IVER [address] [place] [address] PCP - General Internal Medicine 12/12/21 Lauren Daniel Family Medicine 12/12/21 Dipak Henao MD [address] [facility] [place] [address] [facility] 03/09/20 Carter Pierce MD [address] [place] [address] Referring Family Medicine 12/07/21 Melania Petty NP Family Medicine 12/12/21 Receptionist Relationship Specialty Start Date End Date Tonya Arriaga, [employer] DELIVERY DRIVER [address] [facility] [place] [address] PCP - General Internal Medicine 12/12/21 Lauren Daniel [address] [place] [address] Family Medicine 12/12/21 Dipak Henao MD [address] [place] [address] [facility] 03/09/20 Carter Pierce(Historical), [address] [place] [address] Referring Family Medicine 12/07/21 Melania Petty, JAYME [address] [place] [address] Family Medicine 12/12/21 Receptionist Relationship Specialty Start Date End Date Tonya Arriaga, [employer] DELIVERY DRIVER [address] [place] [address] PCP - General Internal Medicine 12/12/21 Lauren Daniel [address] [place] [address] Family Medicine 12/12/21 Dipak Henao MD [address] [place] [address] [facility] 03/09/20 Carter Pierce(Historical), [address] [place] [address] Referring Family Medicine 12/07/21 Melania Petty, BUTTER LIQUEFIER [address] [place] [address] Family Medicine 12/12/21 Receptionist Relationship Specialty Start Date End Date Tonya Arriaga, [employer] DELIVERY DRIVER [address] [place] [address] PCP - General Internal Medicine 12/12/21 Lauren Daniel [address] [place] [address] Family Medicine 12/12/21 Dipak Henao MD [address] [place] [address] [facility] 03/09/20 Carter Pierce(Historical), [address] [place] [address] Referring Family Medicine 12/07/21 Melania Petty NP [address] [place] [address] Family Medicine 12/12/21 Receptionist Relationship Specialty Start Date End Date Tonya Arriaga, [employer] DELIVERY DRIVER [address] [place] [address] PCP - General Internal Medicine 12/12/21 Lauren Daniel [address] [place] [address] Family Medicine 12/12/21 Dipak Henao MD [address] [place] [address] [facility] Family Medicine 03/09/20 Carter Pierce(Historical), [address] [place] [address] Referring Family Medicine 12/07/21 Melania Petty, BUTTER LIQUEFIER [address] [place] [address] Family Medicine 12/12/21 Receptionist Relationship Specialty Start Date End Date Tonya Arriaga, [employer] DELIVERY DRIVER [address] [place] [address] PCP - General Internal Medicine 12/12/21 Lauren Daniel [address] [place] [address] Family Medicine 12/12/21 Dipak Henao MD [address] [place] [address] [facility] Family Medicine 03/09/20 Carter Pierce(Historical), [address] [place] [address] Referring Family Medicine 12/07/21 Melania Petty, BUTTER LIQUEFIER [address] [place] [address] Family Medicine 12/12/21 Receptionist Relationship Specialty Start Date End Date Tonya Arriaga [employer] DELIVERY DRIVER [address] [place] [address] PCP - General Internal Medicine 12/12/21 Lauren Daniel [address] [place] [address] Family Medicine 12/12/21 Dipak Henao MD [address] [place] [address] [facility] Family Medicine 03/09/20 Carter Pierce(Historical), [address] [place] [address] Referring Family Medicine 12/07/21 Melania Petty NP [address] [place] [address] Family Medicine 12/12/21 Receptionist Relationship Specialty Start Date End Date Tonya Arriaga [employer] DELIVERY DRIVER [address] [place] [address] PCP - General Internal Medicine 12/12/21 Lauren Daniel [address] [place] [address] Family Medicine 12/12/21 Dipak Henao MD [address] [place] [address] [facility] Family [facility] 03/09/20 Carter Pierce(Historical), [address] [place] [address] Referring Family Medicine 12/07/21 Melania Petty NP [address] [place] [address] Family Medicine 12/12/21 Receptionist Relationship Specialty Start Date End Date Tonya Arriaga [employer] DELIVERY DRIVER [address] [place] [address] PCP - General Internal Medicine 12/12/[address] [facility] [place] [address] Family Medicine 12/12/21 Dipak Henao MD [address] [facility] [place] [address] [facility] Family Medicine 03/09/20 Carter Pierce(Historical), [address] [facility] [place] [address] Referring Family Medicine 12/07/21 Melania Petty NP [address] [facility] [place] [address] Family Medicine 12/12/21 Receptionist Relationship Specialty Start Date End Date Tonya Arriaga, [employer] SAL[employer] DELIVERY DRIVER [address] [facility] [place] [address] PCP - General Internal Medicine 12/12/21 [address] [facility] [place] [address] Family Medicine 12/12/21 Dipak Henao MD [address] [facility] [place] [address] [facility] Family Medicine 03/09/20 Carter Pierce(Historical), [address] [facility] [place] [address] Referring Family Medicine 12/07/21 Melania Petty, JAYME [address] [facility] [place] [address] Family Medicine 12/12/21 Reyes Azevedo MD [address] [place] [address] Home Care Provider Neurosurgery 07/05/22 Wilmer Choi PA-C [address] [place] [address] Referring Neurosurgery 07/05/22 Amarilis Molina, PT [address] [place] [address] [employer] Acute Care 07/05/22 Receptionist Relationship Specialty Start Date End Date Tonya Arriaga, [employer] DELIVERY DRIVER [address] [facility] [address] PCP - General Internal Medicine 12/12/21 [address] [facility] [place] [address] Family Medicine 12/12/21 Dipak Henao MD [address] [facility] [place] [address] [facility] Family [facility] 03/09/20 Carter Pierce(Historical), [address] [place] [address] Referring Family Medicine 12/07/21 Melania Petty NP [address] [facility] [place] [address] Family Medicine 12/12/21 Reyes Azevedo MD [address] [place] [address] Home Care Provider Neurosurgery 07/05/22 Wilmer Choi PA-C [address] [place] [address] Referring Neurosurgery 07/05/22 Amarilis Molina, PT [address] [place] [address] [employer] Acute Care 07/05/22 Receptionist Relationship Specialty Start Date End Date Tonya Arriaga, [employer] SAL[employer] DELIVERY DRIVER [address] [facility] [place] [address] PCP - General Internal Medicine 12/12/[address] [facility] [place] [address] Family Medicine 12/12/21 Dipak Henao MD [address] [facility] [place] [address] [facility] Family Medicine 03/09/20 Carter Pierce(Historical), [address] [facility] [place] [address] Referring Family Medicine 12/07/21 Melania Petty NP [address] [facility] [place] [address] Family Medicine 12/12/21 Reyes Azevedo MD [address] [place], [place] [id number] Home Care Provider Neurosurgery 07/05/22 Wilmer Choi PA-C [address] [place], [place] [id number] Referring Neurosurgery 07/05/22 Amarilis Molina, PT [address] [place] [address] [employer] Acute Care 07/05/22 Receptionist Relationship Specialty Start Date End Date Tonya Arriaga, [employer] DELIVERY DRIVER [address] [facility] [place] [address] PCP - General Internal Medicine 12/12/21 [address] [facility] [address] Family Medicine 12/12/21 Dipak Henao MD [address] [facility] [place] [address] [facility] Family Medicine 03/09/20 Carter Pierce(Historical), [address] [facility] [place] [address] Referring Family Medicine 12/07/21 Melania Petty NP [address] [facility] [place] [address] Family Medicine 12/12/21 Reyes Azevedo MD [address] [place], [place] [id number] Home Care Provider Neurosurgery 07/05/22 Wilmer Choi PA-C [address] [place] [address] Referring Neurosurgery 07/05/22 Amarilis Molina, PT [address] [place] [address] [employer] Acute Care 07/05/22 Receptionist Relationship Specialty Start Date End Date Tonya Arriaga, [employer] DELIVERY DRIVER [address] [place] [address] PCP - General Internal Medicine 12/12/21 Lauren Daniel [address] [place] [address] Family Medicine 12/12/21 Dipak Henao MD [address] [place] [address] [facility] 03/09/20 Carter Pierce(Historical)MD [address] [place] [address] Referring Family Medicine 12/07/21 Melania Petty, JAYME [address] [place] [address] Family Medicine 12/12/21 Reyes Azevedo MD [address] [place] [address] Home Care Provider Neurosurgery 07/05/22 Wilmer Choi PA-C [address] [place] [address] Referring Neurosurgery 07/05/22 Amarilis Molina, PT [address] [place] [address] [employer] Acute Care 07/05/22 Receptionist Relationship Specialty Start Date End Date Tonya Arriaga CNP [address] [facility] [address] PCP - General Internal Medicine 12/12/21 [address] [facility] [address] Family Medicine 12/12/21 Dipak Henao MD [address] [place] [address] [facility] 03/09/20 Carter Pierce(Historical)MD [address] [place] [address] Referring Family Medicine 12/07/21 Melania Petty NP [address] [place] [address] Family Medicine 12/12/21 Reyes Azevedo MD [address] [place], [place] [id number] Home Care Provider Neurosurgery 07/05/22 Wilmer Choi PA-C [address] [place], [place] [id number] Referring Neurosurgery 07/05/22 Amarilis Molina, PT [address] [place], [place] [id number] [employer] Acute Care 07/05/22 Receptionist Relationship Specialty Start Date End Date Tonya Arriaga CNP [address] [place] [address] PCP - General Internal Medicine 12/12/[address] [facility] [address] Family Medicine 12/12/21 Dipak Henao MD [address] [place] [address] [facility] 03/09/20 Carter Pierce(Historical)MD [address] [place] [address] Referring Family Medicine 12/07/21 Melania Petty NP [address] [place] [address] Family Medicine 12/12/21 Reyes Azevedo MD [address] [place] [address] [id number] Home Care Provider Neurosurgery 07/05/22 Wilmer Choi PA-C [address] [place] [address] [id number] Referring Neurosurgery 07/05/22 Amarilis Molina, PT [address] [place], [place] [phone] [employer] Acute Care 07/05/22 Receptionist Relationship Specialty Start Date End Date Tonya Arriaga CNP [address] [place] [address] PCP - General Internal Medicine 12/12/21 Lauren Daniel [address] [place] [address] Family Medicine 12/12/21 Dipak Henao MD [address] [place] [address] [facility] Family Medicine 03/09/20 Carter Pierce(Historical)MD [address] [place] [address] Referring Family Medicine 12/07/21 Melania Petty NP [address] [place] [address] Family Medicine 12/12/21 Reyes Azevedo MD [address] [place], [place] [id number] Home Care Provider Neurosurgery 07/05/22 Wilmer Choi PA-C [address] [place] [address] [phone] Referring Neurosurgery 07/05/22 Amarilis Molina, PT [address] [place] [address] [employer] Acute Care 07/05/22 Receptionist Relationship Specialty Start Date End Date Tonya Arriaga CNP [address] [place] [address] PCP - General Internal Medicine 12/12/21 Lauren Daniel [address] [place] [address] Family Medicine 12/12/21 Dipak Henao MD [address] [place] [address] [facility] 03/09/20 Carter Pierce(Historical)MD [address] [place] [address] Referring Family Medicine 12/07/21 Melania Petty NP [address] [place] [address] Family Medicine 12/12/21 Reyes Azevedo MD [address] [place], [place] [id number] Home Care Provider Neurosurgery 07/05/22 Wilmer Choi PA-C [address] [place] [address] Referring Neurosurgery 07/05/22 Amarilis Molina, PT [address] [place] [address] [employer] Acute Care 07/05/22 Receptionist Relationship Specialty Start Date End Date Tonya Arriaga CNP [address] [place] [address] PCP - General Internal Medicine 12/12/21 Lauren Daniel [address] [place] [address] Family Medicine 12/12/21 Dipak Henao MD [address] [place] [address] [facility] Family Medicine 03/09/20 Carter Pierce(Historical)MD [address] [place] [address] Referring Family Medicine 12/07/21 Melania Petty NP [address] [place] [address] Family Medicine 12/12/21 Receptionist Relationship Specialty Start Date End Date Tonya Arriaga CNP [address] [place] [address] PCP - General Internal Medicine 12/12/21 Lauren Daniel [address] [place] [address] Family Medicine 12/12/21 Dipak Henao MD [address] [place] [address] [facility] Family Medicine 03/09/20 Carter Pierce(Historical)MD [address] [place] [address] Referring Family Medicine 12/07/21 Melania Petty NP [address] [place] [address] Family Medicine 12/12/21 Reyes Azevedo MD [address] [place] [address] Home Care Provider Neurosurgery 07/05/22 Wilmer Choi PA-C [address] [place] [address] Referring Neurosurgery 07/05/22 Amarilis Molina, PT [address] [place] [address] [employer] Acute Care 07/05/22 FOR RECORDS PERTAINING TO PATIENTS WHO ARE [...] BE BASED ON THE PRIMARY CLINICAL RECORDS. [facility] [employer] provides no warranty or guarantee of the accuracy or completeness of information in this document.
[2023-05-10 10:39] VITALS: BP 127/78; PULSE 78; RESP 16; TEMP 36.7; O2SAT 97
== END 2023-05-10 10:40 | disposition home or self-care (01) ==
LOC: ED 10:22
PROVIDERS: Emergency Provider Emergency Medicine; Visit Provider Emergency Medicine
DX: R51.9 Headache, unspecified (principal); K04.7 Periapical abscess without sinus; F17.210 Nicotine dependence, cigarettes, uncomplicated
CPT/HCPCS: 99282

== ENCOUNTER 2023-05-20 14:19 | Emergency (ER) | payer MEDICAID, SELFPAY ==
[2023-05-20 14:19] VITALS: BP 148/118; PULSE 107; RESP 16; O2SAT 100
[2023-05-20 14:20] VITALS: BP 148/118; PULSE 107; RESP 16; TEMP 36.3; O2SAT 100; BMI 30.5
--- NOTE | 2023-05-20 14:47 | EDS_ITS ---
HPI History of Present Illness Chief Complaint: Lower Extremity Injury Informant: patient Onset/Context/Timing Onset: Today Context: Sudden Onset Timing: Continuous Quality: Sharp Location: Buttock and Right Leg Current Severity: Moderate Maximum Severity: Moderate Worsened by: improves with Movement Relieved by: Nothing Associated Symptoms Associated Symptoms: Radiation to Right Leg; Negative for Numbness, Tingling, Radiation to Left Leg, Fever, Abdominal Pain, Dysuria, Unable to Ambulate, Unable to Transfer, Urinary Retention, Urinary Incontinence, Constipation or Fecal Incontinence Narrative Narrative: 37-year-old female has prior C5 neck surgery. Today she was at work and she forgot to check out someone's bagels and she went to run it to take to them and she felt a pop and had pain in her right buttocks going down her right leg. She has had a history of sciatica before. No prior lumbar surgery. No weakness or numbness. No incontinence. Prior similar symptoms: Yes Recent Illness/Hospitalization: No PFSH PFSH Medical History Chronic neck and back pain Costochondritis, acute GERD (gastroesophageal reflux disease) Shoulder pain Home Medications cyclobenzaprine 10 mg tablet 10 mg PO TID PRN Muscle Spasm #20 TABLETS 12/03/21 [Rx Last Taken Unknown] naproxen 500 mg tablet (Naprosyn) 500 mg PO BID PRN pain #20 tabs 05/10/23 [Rx Last Taken Unknown] oxycodone-acetaminophen 5 mg-325 mg tablet (Percocet) 1 tab PO Q4H PRN pain 3 days #12 tabs 05/20/23 [Rx Last Taken Unknown] Allergy/AdvReac Type Severity Reaction Status Date / Time Penicillins Allergy Anaphylaxis Verified 05/20/23 14:21 Family History Other Hypertension Surgical History Hx of section S/P spinal surgery Social History Smoking Status: Current every day smoker tobacco type: cigarettes ROS ROS ED ROS Narrative Denies recent illness. Review of Systems ROS Unobtainable: Denies due to encephalopathy Constitutional Constitutional ED: Denies chills or fever(s) Eyes Eyes: Denies blurry vision or change in vision ENT ENT ED: Denies ear pain, rhinorrhea or sore throat Cardiovascular Cardiovascular: Denies chest pain, palpitations or racing heartbeat Respiratory/Chest Respiratory/Chest: Denies dyspnea or dyspnea on exertion Gastrointestinal Gastrointestinal: Denies abdominal pain Genitourinary Genitourinary ED: Denies dysuria or hematuria Musculoskeletal Musculoskeletal: Reports back pain; Denies arthralgias, myalgias or neck pain Integumentary Denies abscess or Abrasions Neurologic Neurologic: Denies headache(s) Psychiatric Psychiatric: Denies anxiety or depression Endocrine Endocrinology: Denies cold intolerance Hematologic/Lymphatic Hematologic/Lymphatic: Denies easy bleeding, easy bruising or lymphadenopathy Allergic/Immunologic Allergic/Immunologic ED: Denies mouth swelling, tongue swelling or urticaria EXAM Physical Exam Narrative Exam Narrative: Well-appearing 37-year-old female. Standing upright leaning over the bed. Vital signs are stable afebrile. Her initial blood pressure is elevated I suspect secondary to pain. H EENT exam unremarkable. Neck nontender. Lungs clear. Heart regular rhythm rate about 105 no murmur. Chest wall and ribs nontender. Abdomen soft nontender. Moving all 4 extremities. Neurovascular intact. Her thoracic and lumbar spine are nontender her right SI joint is tender to palpation. She is increasing pain with hip flexion. And the pain radiates down her right buttock and her right hamstring. There is no weakness or numbness to her lower extremities. There is no cauda equina. There is no saddle anesthesia. She has normal medial thigh sensation. Normal dorsi and plantarflexion. Neurologically she is awake and alert with no focal motor deficits. Patient is frustrated by this pain today. States I am falling apart, only 37 years old. Tearful. Const Vital Signs: 05/20/23 14:20 05/20/23 14:19 Temperature 97.3 F L Temperature Source Temporal Pulse Rate 107 H 107 H Respiratory Rate 16 16 Blood Pressure 148/118 H 148/118 H Blood Pressure Mean 128 128 Pulse Ox 100 100 Oxygen Delivery Method Room Air Room Air Positive well nourished and well developed; Negative for obese, cachectic, contractures or unkempt General Appearance ED: well developed and NAD; Negative for unkempt, cachectic, contractures or pallor Nutritional Appearance: Negative for cachectic or obese HEENT Reports moist mucous membranes; Denies TM's clear or dry mucous membranes Negative for trauma or tenderness Tympanic Membrane ED: Negative for TM's clear Mouth ED: No dry mucous membranes Mouth: No dry mucous membranes Eyes PERRL and EOMs intact bilaterally General Eye ED: Negative for pale conjunctiva, scleral icterus or other Neck no lymphadenopathy, supple and no JVD General: Negative for tenderness Thyroid: Negative for other Chest Wall Chest: Negative for other Resp normal respiratory effort and clear to auscultation bilaterally Effort and Inspection: Negative for pain with movement Auscultation: Negative for rales, rhonchi, wheezes or diminished lung sounds Cardio regular rate, regular rhythm, S1 normal heart sound, S2 normal heart sound and n o murmurs Palpation: Negative for palpable S3 Rate: Negative for bradycardia or tachycardic Rhythm: Negative for abnormal rhythm Bruits: Negative for other GI normal to inspection, nondistended, normoactive bowel sounds, soft to palpation, non-tender, non-distended and no masses Inspection: Negative for abdominal distention Palpation: Negative for tender, guarding or rebound tenderness present Bladder / Kidney Exam: No other Back/Spine normal to inspection and no thoracic nor lumbar tenderness Back/Spine Narrative: Right SI tenderness. Positive straight leg raise test on the right. Cervical Spine: Negative for cervical spine tenderness and Negative for paracervical muscle tenderness Thoracic Spine / Upper Back: Negative for paraspinal muscle tenderness Lumbar Spine / Lower Back: straight leg raise positive right; Negative for ROM limited Extremity normal to inspection and no clubbing, cyanosis or edema General Extremety ED: Negative for edema or tenderness General Extremity: Negative for edema Neuro oriented x3 and no sensory deficits noted Sensorium / Orientation: Negative for alert, confused, lethargic or stuporous Sensory Exam: No other Motor Exam: strength 5/5 throughout Psych mental status grossly normal Appearance: Negative for unkempt Attitude: No agitated Mood & Affect: tearful; Negative for depressed or sad Skin no rashes or lesions noted and no wounds General Skin Exam: Negative for jaundice or pallor Lesions: No lesion noted Rashes: No rashes noted Trauma: Negative for abrasion or puncture Wounds: Negative for wounds noted MDM MDM MDM Narrative Medical decision making narrative: History and exam are consistent with right-sided sciatica. IM Toradol. Percocet p.o. Discharged home. History & Record Review Discussion w/independent historian: Patient Additional record(s) reviewed:: Prior inpatient record, Prior outpatient record, Prior ED visit and Prior labs Discharge Plan Triage Chief Complaint: Lower Extremity Injury ED Provider: Lance Betancourt Dx/Rx/DC Orders Clinical Impression: Sciatica of right side, Hx of neck surgery Instructions: ED Sciatica Prescriptions: New oxycodone-acetaminophen [Percocet] 5-325 mg tablet 1 tab PO Q4H PRN (Reason: pain) 3 Days Qty: 12 0RF No Action cyclobenzaprine [cyclobenzaprine] 10 mg tablet 10 mg PO TID PRN (Reason: Muscle Spasm) Qty: 20 0RF naproxen [Naprosyn] 500 mg tablet 500 mg PO BID PRN (Reason: pain) Qty: 20 0RF Primary Care Provider: [facility] Fields Referrals: [facility] Fields [Primary Care Provider] - 3-5 Days if not improving Activity Restrictions/Additional Instructions: Percocet for pain. Motrin for pain and inflammation. Follow-up with your primary care physician if not improving because if this is not improving you may need an MRI of your lower back to rule out degenerative disc disease. Your exam and history however go along with sciatica. Disposition Disposition: Home, Self Care
[2023-05-20] MEDS: Oxycodone/Apap 5/325 Tablet PO (14:50)
[2023-05-20] MEDS: Ketorolac 60 MG/2 ML Vial IM (14:51)
[2023-05-20 15:03] VITALS: BP 148/118; PULSE 107; RESP 16; TEMP 36.3; O2SAT 100
== END 2023-05-20 15:04 | disposition home or self-care (01) ==
PROVIDERS: Emergency Provider Emergency Medicine; Visit Provider Emergency Medicine
DX: M54.31 Sciatica, right side (principal); F17.210 Nicotine dependence, cigarettes, uncomplicated
CPT/HCPCS: 96372; 99282

== ENCOUNTER 2024-03-06 18:38 | Emergency (ER) | payer SELFPAY ==
[2024-03-06 18:39] VITALS: BP 131/103; PULSE 75; RESP 18; TEMP 36.7; O2SAT 97; BMI 31.1
--- NOTE | 2024-03-06 18:54 | EDS_ITS ---
HPI History of Present Illness Chief Complaint: Headache Detail of Chief Complaint: Patient presents with headache x 5 days Informant: patient Narrative Narrative: Patient presents to the ER with complaint headache that started 5 days ago. Patient states that her family developed a viral type gastroenteritis illness last weekend and she initially started with nausea and vomiting and diarrhea. Headache started 5 days ago. She never developed a fever. She been taking ibuprofen and Aleve and that seems to decrease the headache but then it comes back and never completely resolved the last 5 days. Her vomiting and diarrhea have resolved. No family history of brain tumors or aneurysms. Nobody else in the household with headache currently. No concern for carbon oxide poisoning. [facility] Medical History Chronic neck and back pain Costochondritis, acute GERD (gastroesophageal reflux disease) Shoulder pain Home Medications ?Medication ?Instructions ?Recorded ?Last Taken ?Type NK 03/06/24 Unknown History Allergy/AdvReac Type Severity Reaction Status Date / Time Penicillins Allergy Anaphylaxis Verified 03/06/24 18:39 Family History Other Hypertension Surgical History Hx of section S/P spinal surgery Social History Smoking Status: Current every day smoker tobacco type: cigarettes ROS ROS ED Review of Systems ROS Unobtainable: other Constitutional Constitutional ED: Reports lethargy; Denies chills, fever(s), sweats or weight loss Eyes Eyes: Denies blurry vision, change in vision or diplopia ENT ENT ED: Denies rhinorrhea or sore throat Cardiovascular Cardiovascular: Denies chest pain, orthopnea or racing heartbeat Respiratory/Chest Respiratory/Chest: Denies cough, dyspnea, dyspnea on exertion, orthopnea or sputum Gastrointestinal Gastrointestinal: Denies abdominal pain, diarrhea, nausea or vomiting Genitourinary Genitourinary ED: Denies dysuria, hematuria or urinary frequency Musculoskeletal Musculoskeletal: Denies arthralgias, back pain, myalgias or neck pain Integumentary Denies abscess, Abrasions or rash Neurologic Neurologic: Reports headache(s); Denies weakness Psychiatric Psychiatric: Denies anxiety, depression or suicidal thoughts Endocrine Endocrinology: Denies polydipsia, polyphagia or polyuria Hematologic/Lymphatic Hematologic/Lymphatic: Denies easy bleeding, easy bruising or lymphadenopathy Allergic/Immunologic Allergic/Immunologic ED: Denies mouth swelling, tongue swelling or urticaria EXAM Physical Exam Const Vital Signs: 03/06/24 18:39 Temperature 98.1 F Temperature Source Temporal Pulse Rate 75 Respiratory Rate 18 Blood Pressure 131/103 H Blood Pressure Mean 112 Pulse Ox 97 Positive well nourished and well developed General Appearance ED: well developed and NAD HEENT Reports TM's clear and moist mucous membranes normocephalic and atraumatic; Negative for trauma or tenderness Tympanic Membrane ED: Yes TM's clear Eyes PERRL and EOMs intact bilaterally Eyes Narrative: Patient has a small subconjunctival hemorrhage noted to the right inferior conjunctiva. General Eye ED: Negative for pale conjunctiva or scleral icterus Neck no lymphadenopathy, supple and no JVD General: Negative for tenderness Chest Wall inspection of chest normal and palpation of chest normal Chest: Negative for tenderness Resp normal respiratory effort and clear to auscultation bilaterally Effort and Inspection: Negative for respiratory distress or pain with movement Auscultation: Negative for rhonchi, wheezes or diminished lung sounds Cardio regular rate, regular rhythm, S1 normal heart sound, S2 normal heart sound and no murmurs Peripheral Pulses: pulses 2+ throughout GI normal to inspection, nondistended, normoactive bowel sounds, soft to palpation, non-tender, non-distended and no masses Back/Spine no CVA tenderness and no thoracic nor lumbar tenderness Extremity normal to inspection General Extremety ED: Negative for edema General Extremity: Negative for edema Neuro oriented x3, CN's II-XII intact bilaterally, no sensory deficits noted and gait normal Neuro Narrative: Finger-nose and heel pascual testing within normal limits, negative Romberg, negative pronator drift, fundi benign. No nuchal rigidity. Negative Kernig's and negative Brudzinski sign. Sensorium / Orientation: awake, alert, oriented to person, oriented to place and oriented to time Motor Exam: strength 5/5 throughout and strength abnormal Psych mental status grossly normal Skin no rashes or lesions noted and no wounds MDM MDM MDM Narrative Medical decision making narrative: Patient presents with headache with recent illness of vomiting and diarrhea which is now resolved. No history of migraines. Clinically she looks well. Suspect headache may be related to viral infection versus potentially migraine or tension headache. IV line will be established. She will be medicated with Reglan, Benadryl, Toradol and normal saline. Will obtain a CBC with differential and BMP to evaluate electrolytes. Patient CBC with differential showed a white count of 8.1 with hemoglobin 14 and platelet count of 161. Differential shows lymphocytic predominance. Chemistries were unremarkable. After treatment with fluids as well as Reglan, Benadryl, and Toradol patient did feel significantly improved. She does not want a thing more for pain. Headache down the about a 5 out of 10 from about a 8 or 9 out of 10. Clinically she looks well. Suspect headache may be related to viral syndrome. Recommended pushing fluids and continued ibuprofen or Tylenol for discomfort. Lab Data Attestation: I reviewed the patient's lab results. Labs: Laboratory Results - last 24 hr 03/06/24 19:10 WBC 8.1 RBC 4.46 Hgb 14.1 Hct 39.9 MCV 89.5 MCH 31.6 MCHC 35.3 RDW Std Deviation 41.0 RDW Coeff of Amrit 12.5 Plt Count 161 MPV 10.2 Immature Gran % (Auto) 0.400 Neut % (Auto) 46.3 L Lymph % (Auto) 43.3 H Bracken % (Auto) 6.1 Eos % (Auto) 3.5 Baso % (Auto) 0.4 Absolute Neuts (auto) 3.8 Absolute Lymphs (auto) 3.50 Nucleated RBC % 0 Sodium 140 Potassium 3.6 Chloride 110 H Carbon Dioxide 25.0 Anion Gap 5 BUN 9 Creatinine 0.65 Estim Creat Clear Calc 137.12 Est GFR (MDRD) Af Amer 129 Est GFR (MDRD) Non-Af 106 BUN/Creatinine Ratio 13.8 Glucose 97 Calcium 8.6 Discharge Plan Triage Chief Complaint: Headache ED Provider: Damari Beyer Dx/Rx/DC Orders Clinical Impression: Viral syndrome, Headache Instructions: ED Headache Unspecified, ED Viral Syndrome (Adult) Prescriptions: No Action NK Primary Care Provider: [facility] Ceci Fields Referrals: [facility] Ceci Fields [Primary Care Provider] - 3-5 Days Print Language: Macedonian Disposition Disposition: Home, Self Care
[2024-03-06] MEDS: DiphenhydrAMINE 50 MG/ML Syringe 25 MG IV (19:13)
[2024-03-06] MEDS: Ketorolac 30 MG/ML Syringe IV (19:13)
[2024-03-06] MEDS: 0.9% Normal Saline (1000mL) 1,000 ML 1000 ML IV (19:13)
[2024-03-06] MEDS: Metoclopramide 10 MG/2 ML Vial IV (19:13)
[2024-03-06 19:29] LABS: Absolute Neutrophil Count 3.8 X10^3/uL (2.0-7.7); Basophil# 0.03 X10^3/uL; Basophil% 0.4 % (0-1); Eosinophil# 0.28 X10^3/uL; Eosinophils% 3.5 % (0-5); Hematocrit 39.9 % (37-47); Hemoglobin 14.1 g/dL (12.0-15.0); Lymphocyte % 43.3 % (19-41); Mean Corp Hgb Conc 35.3 g/dL (32-36); Mean Corpuscular Hgb 31.6 pg (27.0-32.0); Mean Corpuscular Volume 89.5 fL (81-99); Mean Platelet Vol. 10.2 fl (6.2-12.0); Monocyte# 0.49 X10^3/uL; Monocyte% 6.1 % (0-10); NRBC Flagged by Analyzer 0 % (0-5); Neutrophil # 3.75 X10^3/uL (2.7-7.7); Neutrophil % 46.3 % (47-70); Platelet Count 161 K/mm3 (150-450); RBC Distribution Width CV 12.5 % (11.6-14.6); Red Blood Count 4.46 M/mm3 (4.2-5.4); White Blood Count 8.1 K/mm3 (4.4-11.0)
[2024-03-06 19:48] LABS: Anion Gap 5 (5-15); BUN 9 mg/dL (7-18); BUN/Creat Ratio 13.8 RATIO (10-20); Calcium,Total 8.6 mg/dL (8.5-10.1); Chloride 110 mmol/L (98-107); Creatinine, Serum 0.65 mg/dL (0.55-1.02); EST Glomerular Filtration Rate 106 mL/min (>60); Est Glom Filt Rate - Afr Amer 129 mL/min (>60); Estimated Creatinine Clearance 137.12 ml/min; Glucose 97 mg/dL (74-106); Potassium 3.6 mmol/L (3.5-5.1); Sodium Level 140 mmol/L (136-145)
[2024-03-06] MEDS: dexAMETHasone 10 MG/ML Vial PO.IVFORM (20:15)
== END 2024-03-06 20:16 | disposition home or self-care (01) ==
PROVIDERS: Emergency Provider Emergency Medicine; Visit Provider Emergency Medicine
DX: B34.9 Viral infection, unspecified (principal); R51.9 Headache, unspecified; Z88.0 Allergy status to penicillin; F17.210 Nicotine dependence, cigarettes, uncomplicated
CPT/HCPCS: 80048; 85025; 96361; 96374; 96375; 99282

== ENCOUNTER 2024-03-28 14:56 | Emergency (ER) | payer SELFPAY ==
[2024-03-28 14:56] VITALS: BP 119/86; PULSE 92; RESP 16; TEMP 36.5; O2SAT 97; BMI 30.6
--- NOTE | 2024-03-28 15:33 | EX.ED.UPPERE ---
HPI History of Present Illness Chief Complaint: Upper Extremity Injury Informant: patient Narrative Narrative: Presents intermittent pain left shoulder and neck radiates down her hand and in her back. No trauma. She has had carpal tunnel surgery to her right side states this feels different. Sometimes she is wakes up with numbness. Currently denies any radicular pain or numbness. Currently does not have a PCP. Prior similar symptoms: No PFSH PFSH Medical History Costochondritis, acute GERD (gastroesophageal reflux disease) Chronic neck and back pain Shoulder pain Home Medications ?Medication ?Instructions ?Recorded ?Last Taken ?Type prednisone 20 mg tablet 60 mg (3 x 20 mg) PO DAILY #21 03/28/24 Unknown Rx TABLETS Allergy/AdvReac Type Severity Reaction Status Date / Time Penicillins Allergy Anaphylaxis Verified 03/28/24 14:58 Family History Other Hypertension Surgical History S/P spinal surgery Hx of section Social History Smoking Status: Current every day smoker tobacco type: cigarettes ROS ROS ED Constitutional Constitutional ED: Denies chills, fever(s) or sweats ENT ENT ED: Denies sore throat Cardiovascular Cardiovascular: Denies chest pain, leg edema, palpitations or racing heartbeat Respiratory/Chest Respiratory/Chest: Denies cough, dyspnea or dyspnea on exertion Gastrointestinal Gastrointestinal: Denies abdominal pain, diarrhea, nausea or vomiting Genitourinary Genitourinary ED: Denies dysuria, hematuria or urinary frequency Musculoskeletal Musculoskeletal: Reports back pain, extremity pain and neck pain Integumentary Denies rash or wounds Neurologic Neurologic: Reports paresthesias; Denies headache(s) or weakness EXAM Physical Exam Const Vital Signs: 03/28/24 14:56 Temperature 97.7 F L Temperature Source Temporal Pulse Rate 92 Respiratory Rate 16 Blood Pressure 119/86 H Blood Pressure Mean 97 Pulse Ox 97 Oxygen Delivery Method Room Air Positive well nourished and well developed General Appearance ED: well developed and NAD HEENT Reports moist mucous membranes normocephalic and atraumatic Eyes General Eye ED: Yes normal appearance of both eyes Neck full ROM Neck Narrative: Mild paracervical tenderness more in the left. Negative Spurling's test bilaterally. Chest Wall Chest: Negative for tenderness Resp normal respiratory effort and normal air movement Effort and Inspection: symmetric chest movement; Negative for respiratory distress Cardio regular rate, regular rhythm and no murmurs Peripheral Pulses: pulses 2+ throughout GI normal to inspection, nondistended, normoactive bowel sounds and non-tender Palpation: Negative for guarding or rebound tenderness present Extremity normal to inspection Extremity Narrative: [employer] strength equal and symmetric. Pulses are intact distally upper extremities. No paresthesias currently. Left upper extremity: No clavicle tenderness. Full range of motion of the shoulder. General Extremety ED: Negative for edema or tenderness General Extremity: Negative for edema Neuro oriented x3 and no sensory deficits noted Sensorium / Orientation: awake and alert Skin no rashes or lesions noted and no wounds MDM MDM MDM Narrative Medical decision making narrative: Interventions / MDM: Differential diagnosis: Cervical radiculopathy Diagnosis considered but do not suspect: N/A My EKG interpretation: N/A Imaging independently reviewed and interpreted by myself: 3 view cervical spine C5-C6 ACDF with hardware stable. Left shoulder 3 views: No acute process. Also read by radiology. External documents reviewed: N/A Test considered but not ordered:N/A ED course: Examination patient describes pain and numbness C6 pattern on the left. Spurling's test was negative. She has pain along the medial scapula in the left. Concern for cervical radiculopathy. No current numbness or weakness. With her shoulder pain will obtain shoulder x-ray and cervical x-rays. X-rays stable. Notes a cervical C5-C6 ACDF. She has left-sided cervical radiculopathy of C6. Prior to her surgery she had right sided symptoms. She currently does not follow with her surgeon. She is given follow-up with pain management and spinal surgeon locally. She did not tolerate neuropathic medicines in the past. She is started on prednisone to try to help with symptoms with outpatient follow-up. All questions were answered. Re-evaluation: stable Disposition discussed with patient/family/significant other: Patient Case discussed with consulting clinician: N/A This note was generated with [employer] dictation software. It may contain incorrect words, spelling, and punctuation that were not noted in checking the note before signing. Discharge Plan Triage Chief Complaint: Upper Extremity Injury ED Provider: Henry Ventura Dx/Rx/DC Orders Clinical Impression: Cervical radiculopathy at C6, Arm pain, left Instructions: Cervical Radiculopathy Prescriptions: New prednisone 20 mg tablet 60 mg PO DAILY Qty: 21 0RF Primary Care Provider: [facility] Fields Referrals: Sean Soliz MD [Med Staff - Active Staff] - 1-2 Weeks Valentin Romero MD [Med Staff - Active Staff] - [facility] - Activity Restrictions/Additional Instructions: Left shoulder x-ray negative. Cervical films notes your ACDF of C5-C6. You are having symptoms of cervical radiculopathy from the left C6 region. Take steroids as prescribed. Follow-up as given to you for further evaluation and treatment plans. Print Language: Divehi Disposition Disposition: Home, Self Care Discharge Date/Time: 03/28/24 16:50
--- NOTE | 2024-03-28 15:40 | RAD_ITS ---
PROCEDURE: SHOULDER MIN 2 VIEWS REASON FOR EXAM: Arm numbness. TECHNIQUE: Four views of the left shoulder. COMPARISON: None. FINDINGS: LEFT SHOULDER: No fracture. No suspicious bone lesion. Normal alignment of the acromioclavicular and glenohumeral joints. Soft tissues are unremarkable. RAD/Shoulder min 2 Views IMPRESSION: No acute osseous abnormalities. Reading Location: [id number]
--- NOTE | 2024-03-28 15:40 | RAD_ITS ---
PROCEDURE: CERV SPINE 2 OR 3 VIEWS REASON FOR EXAM: Left arm numbness in the morning. TECHNIQUE: 3 views of the cervical spine. COMPARISON: 12/03/2021. FINDINGS: Normal vertebral body heights. No visible fracture. Nonfused disc space heights are preserved. C5-6 anterior cervical discectomy and fusion. Prevertebral soft tissues are unremarkable. RAD/Cerv Spine 2 or 3 Views IMPRESSION: No acute osseous abnormalities. C5-6 ACDF. Reading Location: [id number]
== END 2024-03-28 16:50 | disposition home or self-care (01) ==
LOC: ED 16:49
PROVIDERS: Emergency Provider Emergency Medicine; Visit Provider Emergency Medicine
DX: M54.12 Radiculopathy, cervical region (principal); M25.512 Pain in left shoulder; Z98.1 Arthrodesis status; Z88.0 Allergy status to penicillin; F17.210 Nicotine dependence, cigarettes, uncomplicated
CPT/HCPCS: 72040; 73030; 99282

== ENCOUNTER 2024-06-16 06:25 | Emergency (ER) | payer SELFPAY ==
[2024-06-16 06:26] VITALS: BP 158/107; PULSE 63; RESP 17; TEMP 36.6; O2SAT 98; BMI 28.6
--- NOTE | 2024-06-16 07:03 | CT_ITS ---
PROCEDURE: ABDOMEN/PELVIS W IV CONT ONLY 06/16/2024 REASON FOR EXAM: RUQ PAIN, N/V TECHNIQUE: Abdomen and pelvis CT with intravenous contrast. Coronal and Sagittal reconstruction series were provided. PATIENT PREPARATION: Per protocol ORAL CONTRAST TYPE: None. CONTRAST: Isovue-300 VOLUME: 100 mL Gauge IV One or more dose reduction techniques were used (e.g., Automated exposure control, adjustment of the mA and/or kV according to patient size, use of iterative reconstruction technique. RADIATION DOSE SUMMARY: CTDlvol: 16.2 mGy DLP: 1032.62 mGycm COMPARISON: None FINDINGS: Lung bases: Unremarkable Liver: Normal size. No mass. Gallbladder: Surgically absent. Spleen: Normal size. Pancreas: Normal size without evidence of mass surrounding inflammation or ductal dilation. Adrenals: Unremarkable Kidneys: Normal renal sizes. No hydronephrosis. Bladder: Unremarkable Reproductive Organs: Follicles are seen in the right ovary. Bowel: Unremarkable Appendix: Unremarkable Lymph nodes: Unremarkable. Vasculature: The abdominal aorta and IVC are normal. Peritoneum / Retroperitoneum: No significant retroperitoneal lymphadenopathy is seen. Bones: Degenerative changes of the spine. CT/Abdomen/Pelvis W IV Cont ONLY IMPRESSION: Follicles are seen in the right ovary. No other abnormality is seen. Reading Location: [facility]
--- NOTE | 2024-06-16 07:14 | EDS_ITS ---
HPI History of Present Illness Chief Complaint: Nausea/Vomiting Narrative Narrative: Patient is a 38-year-old female with no known significant past medical history does not follow with a physician on a regular basis who presents to the emergency department with a chief complaint of nausea vomiting and abdominal pain for 3 days. States that eating and drinking makes her pain worse. She states that she has not been around anybody sick that she is aware of. Patient denies any previous abdominal surgeries. Patient states that she vomited right before her arrival here. When questioned where her abdominal pain is she states that it is mainly her stomach but everywhere in her abdomen. [facility] Medical History Costochondritis, acute GERD (gastroesophageal reflux disease) Chronic neck and back pain Shoulder pain Home Medications ?Medication ?Instructions ?Recorded ?Last Taken ?Type dicyclomine 20 mg tablet 20 mg PO TID #20 tabs Unknown Rx ondansetron 4 mg disintegrating 4 mg PO Q6H PRN nausea and 06/16/24 Unknown Rx tablet vomiting #30 tabs pantoprazole 40 mg tablet,delayed 40 mg PO DAILY 30 da ys #30 tabs 06/16/24 Unknown Rx release potassium chloride 20 mEq oral 20 meq PO BID 5 days #3 0 ea 06/16/24 Unknown Rx packet Allergy/AdvReac Type Severity Reaction Status Date / Time Penicillins Allergy Anaphylaxis Verified 06/16/24 06:26 Family History Other Hypertension Surgical History S/P spinal surgery Hx of section Social History Smoking Status: Current every day smoker tobacco type: cigarettes ROS ROS ED ROS Narrative Constitutional: Denies fevers, chills, headaches Cardiovascular: Denies chest pain or palpitations Respiratory: Denies coughing Abdomen: Complains of abdominal pain, nausea, vomiting as noted above : Denies urinary symptoms Neurological: Denies numbness, weakness, tingling Musculoskeletal: Denies back pain Skin: Denies rashes or lesions EXAM Physical Exam Narrative Exam Narrative: General: Patient lying in bed resting comfortably does not appear to be in acute distress Head: Atraumatic, normocephalic Eyes: PERRL bilaterally, EOMI bilaterally, no conjunctival injection noted Neck: Soft, supple, trachea midline Cardiovascular: Regular rate and rhythm no murmurs gallops rubs noted Respiratory: Clear to auscultation bilaterally Abdomen: Patient has tenderness palpation the right upper quadrant and epigastric region noted on exam with some mild tenderness palpation left lower quadrant no rebound or guarding on exam Extremities: +5/5 strength noted in the bilateral upper and lower extremities Neurological: Patient follow commands and that she was at [facility] years 2024 Skin: Warm, dry, intact no rashes or lesions noted Const Vital Signs: 06/16/24 06:26 06/16/24 08:26 06/16/24 10:00 Temperature 97.9 F Temperature Source Oral Pulse Rate 63 68 68 Respiratory Rate 17 16 18 Blood Pressure 158/107 H 176/90 H 170/88 H Blood Pressure Mean 124 118 115 Pulse Ox 98 98 98 Oxygen Delivery Method Room Air Room Air Room Air MDM MDM MDM Narrative Medical decision making narrative: Patient is a 2-year-old female who presented to the emergency department with chief complaint of nausea vomiting abdominal pain for the last 3 days. On the differential diagnose includes but not limited to cholecystitis, pancreatitis, viral gastroenteritis, ACS. Once workup is obtained reviewed she will be reevaluated. Patient given IV fluids morphine Zofran. Patient CBC was reviewed and showed no evidence leukocytosis white blood count normal at 11, hemoglobin 17.3, plate count was noted at 147. Patient sodium normal 130, potassium was low indicating hypokalemia at 2.9 she was given 40 mill equivalents of supplementation here, patient be given a prescription for potassium the next few days. Patient's creatinine normal at 0.78. Patient AST and ALT were 26 and 26 respectively, total bilirubin normal at 0.74. Patient's test was negative, lipase normal at 35. Patient's urinalysis reviewed and showed 25 leukocyte esterase 0 white blood cells and no bacteria noted. Patient CT abdomen pelvis with IV contrast reviewed which showed follicle seen in the right ovary no other abnormalities noted there in the body noted surgically absent gallbladder however on my review there is a gallbladder present and patient states that she does have her gallbladder therefore I reach back out to radiology to review this and they made addendum which was noted that this is visualized and is unremarkable. Patient was given Bentyl for pain. On reevaluation the patient again she is feeling better she would like to go home at this point time. Patient advised to continue supportive care and return with worsening symptoms or concerns. Should be given prescriptions for Zofran, Bentyl, Protonix. She was also advised to follow-up with a doctor which she was referred to. All question concerns answered she was discharged home in stable condition. Lab Data Labs: Laboratory Results - last 24 hr 06/16/24 06/16/24 06:33 07:15 WBC 11.0 RBC 5.42 H Hgb 17.3 H Hct 47.8 H MCV 88.2 MCH 31.9 MCHC 36.2 H RDW Std Deviation 40.3 RDW Coeff of Amrit 12.5 Plt Count 147 L MPV 10.2 Immature Gran % (Auto) 0.500 Neut % (Auto) 70.9 H Lymph % (Auto) 20.5 Valley % (Auto) 7.1 Eos % (Auto) 0.7 Baso % (Auto) 0.3 Absolute Neuts (auto) 7.8 H Absolute Lymphs (auto) 2.25 Nucleated RBC % 0 Sodium 138 Potassium 2.9 L Chloride 99 Carbon Dioxide 23.4 Anion Gap 16 H BUN 27 H Creatinine 0.78 Estim Creat Clear Calc 113.45 Est GFR (MDRD) Non-Af 98 BUN/Creatinine Ratio 34.9 H Glucose 125 H Calcium 9.6 Total Bilirubin 0.74 AST 26 ALT 26 Alkaline Phosphatase 68 Total Protein 7.5 Albumin 4.5 Globulin 3.1 Albumin/Globulin Ratio 1.5 Lipase 35 Serum , Qual NEGATIVE Urine Color Yellow Urine Clarity Clear Urine pH 6.5 Ur Specific Patterson 1.020 Urine Protein 100 H Urine Glucose (UA) Normal Urine Ketones 15 H Urine Occult Blood 150 H Urine Nitrite Negative Urine Bilirubin Negative Urine Urobilinogen Normal Ur Leukocyte Esterase 25 H Urine RBC 0 SEEN Urine WBC 0 SEEN Ur Squamous Epith Cells 0-5 SEEN Amorphous Sediment 1+ Urine Bacteria 0 SEEN Fine Granular Casts 0-5 SEEN Urine Mucus 0 SEEN Radiography Diagnostic Testing: Clinical Impression(s) from Imaging Studies Abdomen/Pelvis CT 06/16/24 07:03 IMPRESSION: Follicles are seen in the right ovary. No other abnormality is seen. Reading Location: [place] [address] Discharge Plan Triage Chief Complaint: Nausea/Vomiting ED Provider: Yung Wright Dx/Rx/DC Orders Clinical Impression: Nausea & vomiting, Abdominal pain Prescriptions: New dicyclomine 20 mg tablet 20 mg PO TID Qty: 20 0RF ondansetron 4 mg tablet,disintegrating 4 mg PO Q6H PRN (Reason: nausea and vomiting) Qty: 30 0RF pantoprazole 40 mg tablet,delayed release (DR/EC) 40 mg PO DAILY 30 Days Qty: 30 0RF potassium chloride 20 mEq packet 20 meq PO BID 5 Days Qty: 30 0RF Primary Care Provider: [facility] Ceci Fields Referrals: [facility] Ceci Fields [Primary Care Provider] - Activity Restrictions/Additional Instructions: Take prescriptions as prescribed. Your CT of your abdomen did not show any acute findings. Your blood work was largely normal did not show any acute abnormalities. Follow-up your doctor in the outpatient setting and return with worsening symptoms or any other concerns as we discussed. Print Language: Frisian Disposition Disposition: Home, Self Care
[2024-06-16] MEDS: 0.9% Normal Saline (1000mL) 1,000 ML 999 ML IV (07:16)
[2024-06-16] MEDS: Ondansetron 4 MG/2 ML Vial IV (07:16)
[2024-06-16] MEDS: Morphine 4 MG/ML Syringe IV (07:18)
[2024-06-16 07:24] LABS: Bacteria 0 SEEN /hpf (None Seen); Mucous, Urine 0 SEEN /hpf (<or=2+); Red Blood Cells-Urine 0 SEEN /hpf (0-5); White Blood Cells 0 SEEN /hpf (0-5)
[2024-06-16 07:31] LABS: Absolute Lymphocyte Count 2.25 X10^3/uL (0.83-4.51); Absolute Neutrophil Count 7.8 X10^3/uL (2.0-7.7); Basophil# 0.03 X10^3/uL; Basophil% 0.3 % (0-1); Eosinophil# 0.08 X10^3/uL; Eosinophils% 0.7 % (0-5); Hematocrit 47.8 % (37-47); Hemoglobin 17.3 g/dL (12.0-15.0); Lymphocyte # 2.25 X10^3/ul (0.83-4.51); Lymphocyte % 20.5 % (19-41); Mean Corp Hgb Conc 36.2 g/dL (32-36); Mean Corpuscular Hgb 31.9 pg (27.0-32.0); Mean Corpuscular Volume 88.2 fL (81-99); Mean Platelet Vol. 10.2 fl (6.2-12.0); Monocyte# 0.78 X10^3/uL; Monocyte% 7.1 % (0-10); NRBC Flagged by Analyzer 0 % (0-5); Neutrophil # 7.76 X10^3/uL (2.7-7.7); Neutrophil % 70.9 % (47-70); Platelet Count 147 K/mm3 (150-450); RBC Distribution Width CV 12.5 % (11.6-14.6); RBC Distribution Width SD 40.3 fl (35.1-43.9); Red Blood Count 5.42 M/mm3 (4.2-5.4)
[2024-06-16] MEDS: Lidocaine 2% Viscous15 ML UDC 15 ML PO (07:34)
[2024-06-16] MEDS: Mag Hydrox/Al Hydrox/Simeth 30 ML UDC PO (07:34)
[2024-06-16 07:37] LABS: Color, Urine Yellow (Yellow); Glucose, Dipstick Normal (Normal); Ketone-Dipstick 15 mg/dl (Negative); Leukocyte Esterase-Dipstick 25 /ul (Negative); Nitrite-Dipstick Negative (Negative); Occult Blood-Urine 150 /ul (Negative); Protein-Dipstick 100 mg/dl (Negative); Urine Bilirubin Dipstick Negative (Negative); Urine Clarity Clear (Clear); Urine Urobilinogen Normal (Normal); Urine pH 6.5 (5.0 - 8.0)
[2024-06-16 07:46] LABS: Amorphous Sediment 1+; Squamous Epithelial Cells - UA 0-5 SEEN /hpf (5-10)
[2024-06-16 07:46] LABS: ALB/GLOB Ratio 1.5 RATIO (0.9-2.4); AST(SGOT) 26 U/L (<=31); Alanine Aminotransfer ALT/SGPT 26 U/L (<=34); Albumin, Serum 4.5 g/dL (3.5-5.0); Alkaline Phosphatase 68 U/L (35-104); Anion Gap 16 (5-15); BUN 27 mg/dL (4-19); BUN/Creat Ratio 34.9 RATIO (10-20); Calcium,Total 9.6 mg/dL (7.6-11.0); Carbon Dioxide 23.4 mmol/L (21.0-32.0); Chloride 99 mmol/L (98-108); Creatinine, Serum 0.78 mg/dL (0.70-1.20); EST Glomerular Filtration Rate 98 (>60); Estimated Creatinine Clearance 113.45 ml/min (50-250); Globulin 3.1 g/dL (2.2-4.2); Glucose 125 mg/dL (70-99); Lipase 35 U/L (13-75); Potassium 2.9 mmol/L (3.3-5.1); Protein, Total 7.5 g/dL (5.9-8.4); Sodium Level 138 mmol/L (133-145); Total Bilirubin 0.74 mg/dL (0.00-1.30)
[2024-06-16 07:47] LABS: Fine Granular Cast- Urine 0-5 SEEN /lpf (0-5)
[2024-06-16 08:19] LABS: Internal QC Validated? YES +Cl - CLEAR BKGD; Pregnancy, Serum, hCG Quali. NEGATIVE Negative
[2024-06-16 08:26] VITALS: BP 176/90; PULSE 68; RESP 16; O2SAT 98
[2024-06-16] MEDS: Metoclopramide 10 MG/2 ML Vial IV (08:46)
[2024-06-16] MEDS: Potassium Chloride Oral Tablet 20 MEQ 40 MEQ PO (09:44)
[2024-06-16 10:00] VITALS: BP 170/88; PULSE 68; RESP 18; O2SAT 98
[2024-06-16] MEDS: Dicyclomine 10 MG Capsule 20 MG PO (10:16)
== END 2024-06-16 11:36 | disposition home or self-care (01) ==
PROVIDERS: Emergency Provider Emergency Medicine; Visit Provider Emergency Medicine
DX: R11.2 Nausea with vomiting, unspecified (principal); R10.9 Unspecified abdominal pain; E87.6 Hypokalemia; K21.9 Gastro-esophageal reflux disease without esophagitis; F17.210 Nicotine dependence, cigarettes, uncomplicated
CPT/HCPCS: 74177; 80053; 81001; 83690; 84703; 85025; 93005; 96361; 96374; 96375; 99283; Q9967; A4216; J2405

== ENCOUNTER 2024-10-31 20:07 | Emergency (ER) | payer OTHER, SELFPAY ==
[2024-10-31 20:08] VITALS: BP 160/88; PULSE 76; RESP 18; TEMP 37; O2SAT 98; BMI 30.3
--- NOTE | 2024-10-31 22:03 | RAD_ITS ---
PROCEDURE: SHOULDER MIN 2 VIEWS 10/31/2024 REASON FOR EXAM: PAIN/INJURY TECHNIQUE: Procedure Code: RADSH Modality: DX Procedure: SHOULDER MIN 2 VIEWS Laterality: COMPARISON: 03/28/2024. FINDINGS: Borderline widening of the left AC joint is unchanged from the previous study and could potentially represent a chronic injury to the left AC ligament. Please correlate clinically. Otherwise no significant bone or joint abnormality is identified. No acute fracture or dislocation. No focal soft tissue swelling. Reading Location: [id number]
--- NOTE | 2024-10-31 22:04 | EX.ED.UPPERE ---
HPI History of Present Illness Chief Complaint: Upper Extremity Injury Informant: patient Narrative Narrative: 39-year-old [id number] female states she injured her left shoulder today lifting a heavy box. She states she started to lift it and felt a sudden twinge she has been having pain ever since. She states she has been having some pain off and on her left shoulder for the last couple months due to a different injury where she fell on some steps and somehow caught herself with her left arm but she does not remember the details of the injury, whether she fell on the outstretched hand or against her shoulder, etc. She states she did not have it evaluated prior to today because it was not bothering her that much. [facility] Medical History Costochondritis, acute GERD (gastroesophageal reflux disease) Chronic neck and back pain Shoulder pain Home Medications ?Medication ?Instructions ?Recorded ?Last Taken ?Type NK 10/31/24 Unknown History meloxicam 15 mg tablet 15 mg PO DAILY PRN pain #14 tabs 10/31/24 Unknown Rx Allergy/AdvReac Type Severity Reaction Status Date / Time Penicillins Allergy Anaphylaxis Verified 10/31/24 20:09 Family History Other Hypertension Surgical History S/P spinal surgery Hx of section Social History (Updated 09/30/24 @ 14:48 by Itzel Welch) Smoking Status: Current every day smoker tobacco type: cigarettes ROS ROS ED Constitutional Constitutional ED: Denies chills or fever(s) Musculoskeletal Musculoskeletal: Reports extremity pain; Denies neck pain Integumentary Denies Abrasions, rash or wounds Neurologic Neurologic: Denies paresthesias or weakness EXAM Physical Exam Const Vital Signs: 10/31/24 20:08 Temperature 98.6 F Temperature Source Oral Pulse Rate 76 Respiratory Rate 18 Blood Pressure 160/88 H Blood Pressure Mean 112 Pulse Ox 98 Oxygen Delivery Method Room Air Positive well nourished and well developed General Appearance ED: well developed and NAD Neck full ROM and supple Back/Spine normal ROM and normal to inspection Extremity Extremity Narrative: Left shoulder: Positive speed test. Positive Yergason. Negative drop test. Neurovascular intact distally. Full range of motion but limited in extremes due to pain especially with internal rotation and forward flexion. There is mild acromioclavicular joint tenderness but no other areas of bony tenderness. She has no deformity. She can abduct fully without limited range. There is no overlying excessive warmth or swelling of the left shoulder. No significant subacromial tenderness. 2+ left radial pulse. Neuro oriented x3, no focal motor deficits and no sensory deficits noted Sensorium / Orientation: alert Psych mental status grossly normal and thought process normal Skin no wounds Rashes: no rashes MDM MDM MDM Narrative Medical decision making narrative: Patient is examining like an acute bicep strain. She does not have a bulge or asymmetry in the upper arm to suggest a rupture. Given her prior pain and injury, I think reasonable to obtain x-rays to evaluate for bony abnormality. Will 4 views of my interpretation including axillary view are all unremarkable. I do not see any Hill-Sachs lesion or [place] on the glenoid. No dislocation. She is amenable to an injection of Toradol, prescribe nurse meloxicam and orthopedic follow-up if she still having major issues after a couple weeks Discharge Plan Triage Chief Complaint: Upper Extremity Injury ED Provider: Kamari Diaz Dx/Rx/DC Orders Clinical Impression: Strain of left biceps tendon Instructions: Biceps Tendonitis Proximal Prescriptions: New meloxicam 15 mg tablet 15 mg PO DAILY PRN (Reason: pain) Qty: 14 0RF No Action NK Primary Care Provider: Care Physician,No Primary Referrals: Jonas Pena MD [Med Staff - Active Staff] - (2-3 weeks if not improving) Print Language: Czech Disposition Disposition: Home, Self Care
--- OUTSIDE RECORDS SUMMARY | 2024-10-31 22:23 | XMS RPT_ITS | CCD ---
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 Role Phone Lauren Daniel Primary Care Provider Dipak Henao MD Unavailable Corina EH, Tonya Berry Primary Care Provider Lauren Daniel Unavailable Dipak Henao MD Unavailable Carter Pierce MD Unavailable Jovanny DELACRUZ, Melania Unavailable Tonya Arriaga CNP Primary Care Provider Lauren Daniel Unavailable Dipak Henao MD Unavailable Carter Pierce MD(Historical) Unavailable Liza vailable Jovanny DELACRUZ, Melania Unavailable REYES ROY Admitting Unavailable REYES ROY Attending Unavailable ARRIAGA, TONYA K Primary Care Unavailable VALDEMAR FAJARDO Consulting Unavailable Reyes Roy MD Unavailable Wilmer Choi PA-C Unavailable Amarilis Molina PT Unavailable Dipak Henao MD Unavailable Dipak Henao MD Unavailable Amarilis Molina PT Unavailable Jovanny DELACRUZ, Melania Unavailable ARRIAGA, TONYA K Primary Care Unavailable ARRIAGA, TONYA K Primary Care Unavailable YOVANY AHN Referring Unavailable ARRIAGA, TONYA K Primary Care Unavailable YOVANY AHN Attending Unavailable ARRIAGA, TONYA K Primary Care Unavailable MANUELA, REYES Attending Unavailable YOVANY AHN Referring Unavailable ARRIAGA, TONYA K Primary Care Unavailable MANUELA, REYES Referring Unavailable ARRIAGA, TONYA K Primary Care Unavailable MANUELA, REYES Referring Unavailable ARRIAGA, TONYA K Primary Care Unavailable LIANET MAS Referring Unavailable MANUELA, REYES Referring Unavailable ARRIAGA, TONYA K Primary Care Unavailable MANUELA, REYES Referring Unavailable ARRIAGA, TONYA K Primary Care Unavailable ARRIAGA, TONYA K Primary Care Unavailable MANUELA, REYES Attending Unavailable UNGPRASERT, PATOMPONG Attending Unavailabl e ARRIAGA, TONYA K Primary Care Unavailable UNGPRASERT, PATOMPONG Referring Unavailabl e ARRIAGA, TONYA K Primary Care Unavailable MANUELA, REYES Referring Unavailable ARRIAGA, TONYA K Primary Care Unavailable ARRIAGA, TONYA K Primary Care Unavailable MANUELA, REYES Referring Unavailable MANUELA, REYES Attending Unavailable Arriaga STUDENT SPECIALIST, Tonya K Primary Care Provider Lauren Daniel CNP Primary Care Provider [facility], [facility] Primary Care Pro vider Dr. Yung Wright DO Attending Provider WrightDr. Yung joe DO Emergency Provider [facility], [facility] Referring Provid er Jessica Villatoro Attending Provider [phone] Milly KWAN, Dr. Roman Attending Provider [phone] [facility], [facility] Primary Care Unavailable Abel Atkins Attending Unavailable Jessica Damico Attending Unavailable [facility] Referring Unavailable [facility], [facility] Primary Care Unavailable Jessica Damico Referring Unavailable Jessica Damico Attending Unavailable Care Physician, No Primary Primary Care Unava ilHenry Frye Attending Unavailable [facility], [facility] Primary Care Unavailable Damari Beyer Attending Unavailable [facility] Primary Care Unavailable Yung Wright Attending Unavailable [facility], [facility] Primary Care Unavailable Allergies Allergy Classification Reported Allergen(s) Allergy Type Date of Onset Reaction(s) Facility (14 sources) Penicillins; Translations: [PENICILLINS] Drug Allergy 10-05-2018 Anaphylaxis [facility] (10 sources) Penicillins Allergy to substance 02-22-2021 Anaphylaxis [facility] (20 sources) Penicillins Drug Allergy 10-05-2018 Anaphylaxis [facility] (1 source) Penicillins Drug allergy (disorder) 09-30-2024 [facility] Repository Medications Current Medications Medication Drug Class(es) Dates Sig (Normalized) Sig (Original) cyclobenzaprine hydrochloride 5 mg oral tablet (18 sources) Muscle Relaxant Start: 09-30-2024 take 1 tablet by mouth three times daily as needed for muscle spasms Cyclobenzaprine 5 mg tablet Active 5 mg PO THREE TIMES A DAY as needed for muscle spasm 60 0 September 30, 2024 12:00am Start: 04-12-2023 End: 05-20-2023 take 1 tablet by mouth three times daily as needed for muscle spasms Cyclobenzaprine 5 mg tablet Discontinued 5 mg PO THREE TIMES A DAY as needed for muscle spasm 21 April 12, 2023 1:00am May 20, 2023 2:55pm On Hold: Conflicting Appointment Start: 12-03-2021 End: 03-06-2024 take 1 tablet by mouth three times daily as needed for muscle spasms Cyclobenzaprine 10 mg tablet Discontinued 10 mg PO THREE TIMES A DAY as needed for Muscle Spasm 20 December 03, 2021 12:00am March 06, 2024 8:07pm Comment on above: Take 10 mg by mouth three times daily as needed. loratadine 10 mg oral tablet (20 sources) Start: take 1 tablet by mouth once daily loratadine (CLARITIN) 10 mg tablet Take 10 mg by mouth once daily. 10/16/2021 Active Comment on above: Take 10 mg by mouth once daily. methocarbamol 750 mg oral tablet (1 source) Muscle Relaxant Start: End: take 1 tablet by mouth every six hours as needed methocarbamol (ROBAXIN) 750 mg tablet Take 1 tablet by mouth four times daily as needed for up to 7 days. 28 tablet 0 07/05/2022 07/12/2022 Active Comment on above: Take 1 tablet by [place] four times daily as needed for up to 7 days. [place] (Nk) (1 source) Start: [place] (Nk) Active September 30, 2024 12:00am phenylephrine hydrochloride 25 mg/ml ophthalmic solution (1 source) alpha-1 Adrenergic Agonist Start: End: PHENYLephrine 2.5 % 1 Drop (AK-DILATE, RYNE-SYNEPHRINE) pregabalin 75 mg oral capsule (4 sources) Start: End: take 1 capsule by mouth twice daily pregabalin (LYRICA) 75 mg capsule Indications: Fibromyalgia Take 1 capsule by mouth twice daily. 60 capsule 09/17/2022 09/17/2023 Active Comment on above: [facility]. proparacaine hydrochloride 5 mg/ml ophthalmic solution (1 source) Local Anesthetic Start: End: proparacaine 0.5 % 1 Drop (ALCAINE) tropicamide 10 mg/ml ophthalmic solution (1 source) Anticholinergic Start: End: tropicamide 1 % 1 Drop (MYDRIACYL) Completed/Discontinued Medications Medication Drug Class(es) Dates Sig (Normalized) Sig (Original) acetaminophen 325 mg / HYDROcodone bitartrate 5 mg oral tablet (7 sources) Opioid Agonist Start: 12-03-2021 End: 05-10-2023 Hydrocodone-Acetami nophen 5-325 mg tablet Discontinued 1 {tbl} PO EVERY 4 HOURS NEEDED as needed for Pain 14 2 0 December 03, 2021 May 10, 2023 9:46am Back pain Dorsalgia, unspecified Start: 12-03-2021 End: 05-10-2023 take 1 tablet by mouth every four hours as needed Hydrocodone-Acetaminophen Discontinued 1 TABLET PO EVERY 4 HOURS NEEDED 14 2 December 03, 2021 May 10, 2023 9:46am acetaminophen 325 mg / oxyCODONE hydrochloride 5 mg oral tablet (20 sources) Opioid Agonist Start: 05-20-2023 End: 03-06-2024 Oxycodone-Acetaminophen (Percocet) 5-325 mg tablet Discontinued 1 {tbl} PO Q4H as needed for pain 12 3 0 May 20, 2023 March 06, 2024 8:07pm Sciatica of right side Sciatica, right side Start: 05-10-2023 End: 05-20-2023 Oxycodone-Acetaminophen 5-32 5 mg tablet Discontinued 1 {tbl} PO EVERY 6 HOURS NEEDED as needed for Pain 12 3 0 May 10, 2023 May 20, 2023 2:56pm Periapical abscess Periapical abscess without sinus Start: 05-10-2023 End: 05-20-2023 take 1 tablet by mouth every six hours as needed Oxycodone-Acetaminophen Discontinued 1 TABLET PO EVERY 6 HOURS NEEDED 12 3 May 10, 2023 May 20, 2023 2:56pm Start: 07-05-2022 End: 07-12-2022 take 1-2 tablets by mouth every six hours as needed for pain oxyCODONE-acetaminophen (PERCOCET) 5-325 mg tablet Indications: pain Take 1-2 tablets by mouth every 6 hours as needed for pain for up to 7 days. 56 tablet 0 07/05/2022 07/12/2022 Active Start: 09-14-2019 End: 09-19-2019 Oxycodone-Acetaminophen 1 TA BLET tablet Discontinued 1 - 2 {tbl} PO EVERY 6 HOURS NEEDED as needed for Pain 20 07September 14, 2019 September 18, 2019 12:00am September 19, 2019 12:02am Postoperative pain Other acute postprocedural pain Start: 09-14-2019 End: 09-19-2019 take 1 tablet by mouth every six hours as needed Oxycodone-Acetaminophen Discontinued 1 - 2 TABLET PO EVERY 6 HOURS NEEDED 20 07September 14, 2019 September 19, 2019 12:02am Comment on above: Take 1-2 tablets by mouth every 6 hours as needed for pain for up to 7 days. clindamycin 150 mg oral capsule (9 sources) Lincosamide Antibacterial Start: 4 End: take 450 mg by mouth three times daily Clindamycin Hcl Discontinued 450 MG PO THREE TIMES A DAY May 10, 2023 12:00am May 20, 2023 2:55pm Start: 05-09-2023 End: 05-20-2023 take 3 capsules by mouth three times daily Clindamycin Hcl 150 mg capsule Discontinued 450 mg PO THREE TIMES A DAY 45 5 May 10, 2023 12:00am May 20, 2023 2:55pm Comment on above: Take 3 capsules by [facility] three times a day for 5 days. dicyclomine hydrochloride 20 mg oral tablet (2 sources) Anticholinergic Start: 06-17-19 End: 10-01-19 take 1 tablet by mouth three times daily Dicyclomine 20 mg tablet Discontinued 20 mg PO THREE TIMES A DAY June 16, 2024 12:00am September 30, 2024 2:47pm gabapentin 300 mg oral capsule (12 sources) Anti-epileptic Agent Start: 04-24-19 End: 07-06-19 take 1 capsule by mouth three times daily gabapentin (NEURONTIN) 300 mg capsule Indications: Cervical myelopathy (HCC) Take 1 capsule by mouth three times daily for 30 days. 90 capsule 0 06/02/2022 07/05/2022 Discontinued Comment on above: Take 1 capsule by [facility] three times daily for 30 days. Iud (13 sources) Start: 09-06-19 End: 03-19-19 Iud Discontinued 0 mg VAGINAL DAILY September 06, 2019 12:00am March 19, 2020 5:58pm Start: 09-06-2019 End: 03-19-2020 Iud Discontinued 0 MG VAGINA L DAILY 2019 11:00pm March 19, 2020 4:58pm Start: 09-06-2019 End: 03-19-2020 Iud Discontinued 0 MG VAGINA L DAILY September 06, 2019 12:00am March 19, 2020 5:58pm methylPREDNISolone 4 mg oral tablet (7 sources) Corticosteroid Start: 12-03-2021 End: 05-10-2023 take 1 tablet by mouth once daily Methylprednisolone (Medrol (Nestor)) 4 mg tablets,dose pack Discontinued 4 mg PO DAILY December 03, 2021 12:00am May 10, 2023 9:46am naproxen 500 mg oral tablet (17 sources) Nonsteroidal Anti-inflammatory Drug Start: 05-10-2023 End: 03-06-2024 take 1 tablet by mouth twice daily as needed for pain Naproxen (Naprosyn) 500 mg tablet Discontinued 500 mg PO TWICE A DAY as needed for pain May 10, 2023 12:00am March 06, 2024 8:07pm Start: 03-14-2019 End: 03-19-2020 take 1 tablet by mouth twice daily as needed Naproxen 500 MG tablet Discontinued 500 mg PO TWICE DAILY NEEDED March 14, 2019 1:00am March 19, 2020 5:58pm nystatin [id number] unt/ml oral suspension (11 sources) Polyene Antifungal Start: 03-12-2020 End: 03-19-2020 take 266813 [IU] by mouth once daily Nystatin Discontinued [id number] UNIT PO 4 TIMES DAILY 03 01March 12, 2020 1:00am March 19, 2020 1:03am Swish for several minutes and swallow Nystatin 100,000 UNIT/ML Oral.Susp (2 sources) Start: 03-12-2020 End: 03-19-2020 take 497529 [IU] by mouth once daily Nystatin 100,000 UNIT/ML Oral.Susp Discontinued [id number] U PO 4 TIMES DAILY March 12, 2020 1:00am March 18, 2020 1:00am March 19, 2020 1:03am Swish for several minutes and swallow omeprazole 40 mg delayed release oral capsule (20 sources) Proton Pump Inhibitor Start: 02-22-2021 take 40 mg by mouth once daily Omeprazole Active 40 MG PO DAILY February 22, 2021 1:00am Start: 02-22-2021 End: 05-20-2023 take 1 capsule by mouth once daily Omeprazole 40 mg capsule,delayed release(DR/EC) Discontinued 40 mg PO DAILY February 22, 2021 1:00am May 20, 2023 2:56pm On Hold: patientnot taking Comment on above: Take 1 capsule [facility] once daily. ondansetron 4 mg disintegrating oral tablet (12 sources) Serotonin-3 Receptor Antagonist Start: 06-17-19 End: 10-01-19 take 1 tablet by mouth every six hours as needed for nausea and vomiting Ondansetron 4 mg tablet,disintegratin g Discontinued 4 mg PO EVERY 6 HOURS as needed for nausea and vomiting June 16, 2024 12:00am September 30, 2024 2:47pm Start: 05-10-2023 End: 05-20-2023 take 1 tablet by mouth every six hours as needed for nausea Ondansetron 4 mg tablet,disintegrating Discontinued 4 mg PO EVERY 6 HOURS NEEDED as needed for Nausea 15 May 10, 2023 10:14am May 20, 2023 2:56pm Start: 02-22-2021 take 4 mg by mouth e very eight hours as needed Ondansetron Active 4 MG PO EVERY 8 HOURS NEEDED February 22, 2021 1:00am pantoprazole 40 mg delayed release oral tablet (2 sources) Proton Pump Inhibitor Start: 06-16-2024 End: 09-30-2024 take 1 tablet by mouth once daily Pantoprazole 40 mg tablet,delayed release (DR/EC) Discontinued 40 mg PO DAILY 30 30 0 June 16, 2024 12:00am September 30, 2024 2:47pm polyethylene glycol 3350 [id number] mg / potassium chloride 2970 mg / sodium bicarbonate 6740 mg / sodium chloride 5860 mg / sodium sulfate 45550 mg powder for oral solution (14 sources) Osmotic Laxative Start: 04-10-2021 End: 06-02-2022 peg 3350-Electrolytes (GOLYTELY) 236-22.74-6.74 -5.86 gram suspension Refer to printed prep instructions from your provider. 4000 mL 0 04/10/2021 06/02/2022 Discontinued Comment on above: Refer to printed pre p instructions from your provider. potassium chloride 20 meq powder for oral solution (2 sources) Start: 06-16-2024 End: 09-30-2024 take 20 mEq by mouth twice daily Potassium Chloride 20 mEq packet Discontinued 20 meq PO TWICE A DAY 30 5 0 June 16, 2024 12:00am September 30, 2024 2:47pm predniSONE 20 mg oral tablet (11 sources) Start: 03-28-2024 End: 06-16-2024 take 3 tablets by mouth once daily Prednisone 20 mg tablet Discontinued 60 mg PO DAILY 21 March 28, 2024 1:00am June 16, 2024 6:27am Start: 04-12-2023 End: 05-10-2023 take 1 tablet by mouth once daily Prednisone 50 mg tablet Discontinued 50 mg PO DAILY 5 0 April 12, 2023 1:00am May 10, 2023 9:47am Start: 05-21-2021 End: 04-07-2022 predniSONE (DELTASONE) 10 mg tablet Take 4 tabs daily for 3 days, then 2 tabs daily for 3 days, then 1 tab daily for 3 days with food. 21 tablet 0 05/21/2021 05/30/2021 Active Comment on above: Take 4 tabs daily fo r 3 days, then 2 tabs daily for 3 days, then 1 tab daily for 3 days with food. traMADol hydrochloride 50 mg oral tablet (13 sources) Opioid Agonist Start: 0 End: 1 take 1 tablet by mouth every eight hours as needed for pain Tramadol 50 mg tablet Discontinued 50 mg PO Q8H as needed for pain 30 0 September 27, 2019 12:00am March 19, 2020 5:59pm stop all other narcotics Problems Active Problems Problem Classification Problem Date Documented Da te Episodic/Chronic Abdominal pain (17 sources) Epigastric pain; Translations: [Epigastric pain] Episodic Anxiety disorders (20 sources) Anxiety attack ; Translations: [Panic disorder [episodic paroxysmal anxiety]] Onset: 2 12-24-2021 Chronic Cardiac dysrhythmias (20 sources) Atrial paroxysmal tachycardia; Translations: [Supraventricular tachycardia] Onset: 2 12-24-2021 Chronic Disorders of teeth and jaw (9 sources) Toothache; Translations: [Other specified disorders of teeth and supporting structures] 05-09-2023 Episodic E Codes: Fall (5 sources) Fall; Translations: [Unspecified fall, initial encounter] 07-20-2022 Episodic E Codes: Natural/environment (6 sources) Repetitive motion disorder; Translations: [Overexertion from repetitive movements, initial encounter] 03-12-2022 Episodic Esophageal disorders (19 sources) Gastroesophageal reflux disease; Translations: [Gastro-esophageal reflux disease without esophagitis] Onset: 3 Chronic Headache; including migraine (6 sources) Acute pain in face; Translations: [Acute facial pain] 05-10-2023 Episodic Headache; including migraine (1 source) Headache; including migraine; Translations: [Headache, unspecified] Onset: 5 Immunizations and screening for infectious disease (14 sources) Contact with and (suspected) exposure to other viral communicable diseases; Translations: [Contact with or suspected exposure to other viral communicable disease] Episodic Intestinal infection (1 source) Infection caused by Helicobacter pylori; Translations: [Other specified bacterial intestinal infections] Episodic Mycoses (13 sources) Candidiasis of mouth; Translations: [Candidal stomatitis] 03-13-2020 Episodic Noninfectious gastroenteritis (20 sources) Gastroenteritis; Translations: [Noninfective gastroenteritis and colitis, unspecified] 05-04-2019 Episodic Nonspecific chest pain (13 sources) Chest pain; Translations: [Chest pain, unspecified] 08-13-2020 Episodic Open wounds of extremities (13 sources) Laceration of forearm; Translations: [Laceration without foreign body of unspecified forearm, initial encounter] 06-28-2020 Episodic Other bone disease and musculoskeletal deformities (13 sources) Costal chondritis; Translations: [Chondrocostal junction syndrome [Tietze]] 08-13-2020 Episodic Other connective tissue disease (2 sources) Pain in finger of right hand; Translations: [...] [Fibromyalgia] 09-17-2022 Episodic Other connective tissue disease (2 sources) Pain in left arm; Translations: [Pain in left arm] 04-05-2024 Episodic Other diseases of bladder and urethra (1 source) Bladder dysfunction; Translations: [Neuromuscular dysfunction of bladder, unspecified] Chronic Other diseases of bladder and urethra (1 source) Neuromuscular dysfunction of bladder, unspecified; Translations: [Bladder dysfunction] Onset: Chronic Other eye disorders (1 source) Progressive [...] Chronic Other nervous system disorders (1 source) Other chronic pain; Translations: [Chronic bilateral low back pain with right-sided sciatica] Onset: 3 Chronic Other nervous system disorders (1 source) Paresthesia of foot ; Translations: [Anesthesia of skin] Episodic Other nervous system disorders (2 sources) Impairment of balance; Translations: [Other abnormalities of gait and mobility] Episodic Other non-traumatic joint disorders (6 sources) Foot joint pain; Translations: [Pain in left ankle and joints of left foot] 03-12-2022 Episodic Other non-traumatic joint disorders (2 sources) Multiple joint pain; Translations: [Pain in unspecified [...] finding; Translations: [Other specified health status] Episodic Spondylosis; intervertebral disc disorders; other back problems (20 sources) Sciatica; Translations: [Sciatica, unspecified side] Onset: 3 Episodic Sprains and strains (18 sources) Injury of thigh; Translations: [Strain of muscle, fascia and tendon of the posterior muscle group at thigh level, right thigh, initial encounter] 07-20-2022 Episodic Substance-related disorders (19 sources) Smoker; Translations: [Nicotine dependence, unspecified, uncomplicated] Onset: Chronic Syncope (13 sources) Syncope; Translations: [Syncope and collapse] 09-11-2020 Episodic Unclassified (2 sources) M54.16 - Radiculopathy, lumbar region Viral infection (15 sources) Viral disease; Translations: [Viral infection, unspecified] 05-04-2019 Episodic Past or Other Problems Problem Classification Problem Date Documented Date Episodic/Chronic Nausea and vomiting (18 sources) Nausea; Translations: [Nausea] Onset: 06-21-2024 Episodic Other connective tissue disease (1 source) Fibromyalgia; Translations: [Fibromyalgia] Onset: 09-17-2022 Episodic Other connective tissue disease (1 source) Pain in right arm; Translations: [Pain in both upper extremities] Onset: 05-21-2022 Episodic Other connective tissue disease (1 source) Pain in left arm; Translations: [Pain in both upper extremities] Onset: 05-21-2022 Episodic Other connective tissue disease (1 source) Other symptoms and signs involving the musculoskeletal system; Translations: [Impaired dexterity] Onset: 05-21-2022 Episodic Other nervous system disorders (1 source) Other abnormalities of gait and mobility; Translations: [Imbalance] Onset: 05-21-2022 Episodic Other non-traumatic joint disorders (1 source) Pain in left shoulder; Translations: [Pain in left shoulder] Onset: 04-15-2024 Episodic Residual codes; unclassified (11 sources) Postoperative state; Translations: [Other specified postprocedural states] Onset: 07-04-2022 07-04-2022 Episodic Results Test Name Value Interpretation Reference Range Facility L/S Spine Min 4 Viewson 08-0 L/S Spine Min 4 Views [facility] Imaging Services [address] [place], [place] [id number] (144 L/S Spine Min 4 Views MR#: [id number] Acct: [id number] Name: SHOSHANATAMMY MULLEN Rep #: [id number] : 1985 F 39 From: Jose C Ventura MD PCP: [facility] Status: DEP AMB Study: L/S Spine Min 4 Views Date of Exam: 09/30/24 Exam# [id number] Ordering Dr: Jessica Damico EXAM: XR Lumbosacral Spine Flexion/Extension Only, 2 or 3 Views CLINICAL INDICATION: BACK PAIN TECHNIQUE: Lateral flexion/extension views of the lumbar spine and sacrum. COMPARISON: No relevant prior studies available. FINDINGS: VERTEBRAE: Mild facet arthropathy of L3-S1. Mild disc degeneration of L5-S1. No acute fracture. Normal sagittal alignment. No instability. SACRUM/COCCYX: Unremarkable as visualized. No acute fracture. DISC SPACES: No acute findings. No significant narrowing. SOFT TISSUES: Unremarkable. RAD/L/S Spine Min 4 Views IMPRESSION: Degenerative changes as above. 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 Normal [facility] Orthopedic Visit Reporton Orthopedic Visit Report [facility] [address] [place] [address] OFFICE VISIT Date of Service: 09/30/24 MR#: [id number] Acct: [id number] Name: TAMMY ANNA Rep #: [id number] : 1985 Provider: SEBASTIAN Luis Age/Sex: 39/F Location: [facility] Status: Signed Intake Vital Signs 06/16/24 06:26 09/22/24 09:27 09/30/24 14:45 Height 5 ft 9 in 5 ft 9 in 5 ft 9 in Weight: 198 lb BMI 29.2 Intake Visit Reasons: lumbar spine Accompanied by: Self Is patient in pain?: Yes Pain scale (1-10): 8 Allergies Penicillins Allergy (Verified 09/30/24 14:47) Anaphylaxis Medications ???Medication ???Instructions ???Recorded ???Confirmed ???Type cyclobenzaprine 5 mg tablet 5 mg PO TID PRN muscle spasm #60 0 09/30/24 09/30/24 Rx tabs PFSH Medical History Costochondritis, acute GERD (gastroesophageal reflux disease) Chronic neck and back pain Shoulder pain Surgical History S/P spinal surgery Hx of section Family History Other Hypertension Social History (Updated 09/30/24 @ 14:48 by Itzel Welch) Smoking Status: Current every day smoker tobacco type: cigarettes HPI lumbar spine Details: This documentation accurately reflects the service provided and the decisions made by me, SEBASTIAN Luis 09/30/24 [id number]. Part of today???s visit was documented by Holley GOVEA, acting as scribe. TAMMY ANNA is a 39 year old F here today for low back pain that has been intermittent for the last year but constant for the last 6 months. She denies any recent injury but states that 18 years ago she was picked up from behind by her neck and dropped on the ground landing on her back that sis cause her pain but over time had gotten better. She states that the location of her pain varies depending on what she is doing. If she sits for long periods of time it makes it hard for her to stand due to pain. Since her pain has gotten worse she has been having pain in the left over the lateral side and groin hip as well. She does get pain that radiated into both legs. In the right leg it is typically in the calf and for the left side its the whole leg and on occasion she will get numbness of the left anterior thigh. She does get tingling in the left leg as well as the left foot. She does get pain and numbness that extends down the back of the left leg and down the side of the left leg. This goes all the way to her feet. She gets tingling in the front of her left thigh which sometimes does extend down to the toes. This issue comes and goes it is not a constant issue. The pain and numbness down the back of the legs is a constant issue. No right sided involvement. She does have a hx of neck surgery in 2022. Since her neck surgery she has been having giving out of the left leg that has progressively gotten worse. She notes that before the surgery her symptoms of the lower back were all right sided but since her neck surgery her symptoms have become more left sided. The surgery she had on her neck was a C5-6 ACDF in [address] Roy with the [facility]. She denies physical therapy or injections. She did have an MRI of her lower back at [facility] that was done around the time she had her neck surgery. She denies having a recent MRI. She denies having recent xrays of the lower back. No diabetes, no heart or lung issues, no blood thinners. No benefit with the ibuprofen and Tylenol. 4 c sections in the past Ortho Exam General General: Yes no acute distress Neurologic: Yes alert and Yes oriented x3 Spine SPINE TESTING CERVICAL THORACIC LUMBAR Musculoskeletal Strength 0=absent - 5=normal Details: Neurological exam of the lower extremities shows 5x5 power. Increased pain with left knee extension and hip flexion. Normal sensations across all dermatomes. No hyperreflexia. No midline tenderness, left-sided paraspinal tenderness. Passive straight leg raise of the left positive. Coding Level of Care Code Off vis,new,level 4 Diagnoses Lumbar radiculopathy M54.16 Assessment and Plan Assessment and Plan (1) Lumbar radiculopathy: Status: Acute Orders: Orders L/S Spine Min 4 Views Today M54.9 - Dorsalgia, unspecified Spine Lumbar (Routine) Today M54.16 - Radiculopathy, lumbar region Referrals Pain Management M54.16 - Radiculopathy, lumbar region Physical Therapy Referral M54.16 - Radiculopathy, lumbar region Medications: New cyclobenzaprine 5 mg PO TID PRN 60 tabs 0RF muscle spasm Plan Obtained reviewed lumbar x-rays today in the clinic. Independent interpretation of the x-rays was performed. X-rays show a mild multilevel dis (more content not included)... Normal [facility] Abdomen/Pelvis W IV Cont ONL Yon 06-16-2024 Abdomen/Pelvis W IV Cont ONLY [facility] Imaging Services [address] [place], [place] [id number] Abdomen/Pelvis W IV Cont ONLY MR#: [id number] Acct: [id number] Name: SHOSHANATAMMY MULLEN Rep #: [id number] : 1985 F 38 From: Yo jarquin MD PCP: [facility] Status: REG ER Study: Abdomen/Pelvis W IV Cont ONLY Date of Exam: Exam# [id number] Ordering Dr: Yung Wright DO ADDENDUM by Dr. Yo Zuniga MD on 06/16/24 at 1025 This is an addendum report. The gallbladder is visualized and is unremarkable. Reading Location: [facility]-IR-1 06/16/24 1026 Date cc: Dr. Yung Wright DO; [facility] * Signed PROCEDURE: ABDOMEN/PELVIS W IV CONT ONLY 06/16/2024 REASON FOR EXAM: RUQ PAIN, N/V TECHNIQUE: Abdomen and pelvis CT with intravenous contrast. Coronal and Sagittal reconstruction series were provided. PATIENT PREPARATION: Per protocol ORAL CONTRAST TYPE: None. CONTRAST: Isovue-300 VOLUME: 100 mL Gauge IV One or more dose reduction techniques were used (e.g., Automated exposure control, adjustment of the mA and/or kV according to patient size, use of iterative reconstruction technique. RADIATION DOSE SUMMARY: CTDlvol: 16.2 mGy DLP: 1032.62 mGycm COMPARISON: None FINDINGS: Lung bases: Unremarkable Liver: Normal size. No mass. Gallbladder: Surgically absent. Spleen: Normal size. Pancreas: Normal size without evidence of mass surrounding inflammation or ductal dilation. Adrenals: Unremarkable Kidneys: Normal renal sizes. No hydronephrosis. Bladder: Unremarkable Reproductive Organs: Follicles are seen in the right ovary. Bowel: Unremarkable Appendix: Unremarkable Lymph nodes: Unremarkable. Vasculature: The abdominal aorta and IVC are normal. Peritoneum / Retroperitoneum: No significant retroperitoneal lymphadenopathy is seen. Bones: Degenerative changes of the spine. CT/Abdomen/Pelvis W IV Cont ONLY IMPRESSION: Follicles are seen in the right ovary. No other abnormality is seen. Reading Location: [facility] CC: Dr. Yung Wright DO; [facility] 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: Signed Normal [facility] Absolute lymphocyte countOrd ered By: Yung Wright on 06-16-2024 Lymphocytes Auto (Unsp spec) [#/Vol] 2.25 10*3/uL 0.83-4.51 [facility] Absolute neutrophil countOrd ered By: Yung Wright on 06-16-2024 Neutrophils (Bld) [#/Vol] 7.8 10*3/uL High 2.0-7.7 [facility] Amorphous sediment detection in urine sediment by light microscopyOrdered By: Yung Wright on 06-16-2024 Amorphous sediment LM Ql (Urine sed) 1+ [facility] Anion gap in Serum or Plasma Ordered By: Yung Wright on 06-16-2024 Anion gap [Moles/Vol] 16 mmol/L High 5-15 [facility] Automated lymphocyte count a s percentage of total leukocytesOrdered By: Yung Wright on 06-16-2024 Lymphocytes/100 WBC Auto (Unsp spec) 20.5 % 19-41 [facility] BUN/creatinine ratioOrdered By: Yung Wright on 06-16-2024 Urea nitrogen/Creatinine [Mass ratio] 34.9 mg/mg High 10-20 [facility] Basophil percentageOrdered B y: Yung Wright on 06-16-2024 Basophils/100 WBC (Bld) 0.3 % 0-1 [facility] Bilirubin Test strip Ql (U)O rdered By: Yung Wright on 06-16-2024 Bilirubin Ql (U) Negative Negative [facility] Bilirubin, totalOrdered By: Yung Wright on 06-16-2024 Bilirubin [Mass/Vol] 0.74 mg/dL 0.00-1.30 [facility] CBC W/Diff, Automatedon 05-25 Absolute Lymph 2.25 X10 3/uL Normal 0.83-4.51 [facility] Comment on above: Performed By: #### L 501.3160, L500.4050, L100.0100, L700.6800 #### [facility] [address] [place] [address]. [place], [address] Absolute Neut 7.8 X10 3/uL High 2.0-7.7 [facility] Comment on above: Performed By: #### L 501.2450, L500.4050, L100.0100, L700.6800 #### [facility] [address] [place], [address] Basophils/100 WBC (Bld) 0.3 % Normal 0-1 [facility] Comment on above: Performed By: #### L 501.2450, L500.4050, L100.0100, L700.6800 #### [facility] [address] [place], [address] Eosinophils/100 WBC (Bld) 0.7 % Normal 0-5 [facility] Comment on above: Performed By: #### L 501.2450, L500.4050, L100.0100, L700.6800 #### [facility] [address] [place], [address] Erythrocyte distribution width (RBC) [Ratio] 12.5 % Normal 11.6-14.6 [facility] Comment on above: Performed By: #### L 501.2450, L500.4050, L100.0100, L700.6800 #### [facility] [address] [place], [address] Hematocrit (Bld) [Volume fraction] 47.8 % High 37-47 [facility] Comment on above: Performed By: #### L 501.2450, L500.4050, L100.0100, L700.6800 #### [facility] [address] [place], [address] Hemoglobin (Bld) [Mass/Vol] 17.3 g/dL High 12.0-15.0 [facility] Comment on above: Performed By: #### L 501.2450, L500.4050, L100.0100, L700.6800 #### [facility] [address] [place], [address] IG% 0.500 Normal 0.0-0.9 [facility] Comment on above: Result Comment: IG% - Immature Granulocytes (promyelocytes, myelocytes and metamyelocytes) > 1% indicates that a LEFT SHIFT is Present. Performed By: #### L 501.2450, L500.4050, L100.0100, L700.6800 #### [facility] [address] [place], [address] Lymphocytes/100 WBC (Bld) 20.5 % Normal 19-41 [facility] Comment on above: Performed By: #### L 501.2450, L500.4050, L100.0100, L700.6800 #### [facility] [address] [place], [address] MCH (RBC) [Entitic mass] 31.9 pg Normal 27.0-32.0 [facility] Comment on above: Performed By: #### L 501.2450, L500.4050, L100.0100, L700.6800 #### [facility] [address] [place], [address] MCHC (RBC) [Mass/Vol] 36.2 g/dL High 32-36 [facility] Comment on above: Performed By: #### L 501.2450, L500.4050, L100.0100, L700.6800 #### [facility] [address] [place], [address] MCV (RBC) [Entitic vol] 88.2 fL Normal 81-99 [facility] Comment on above: Performed By: #### L 501.2450, L500.4050, L100.0100, L700.6800 #### [facility] [address] [place], [address] Monocytes/100 WBC (Bld) 7.1 % Normal 0-10 [facility] Comment on above: Performed By: #### L 501.2450, L500.4050, L100.0100, L700.6800 #### [facility] [address] [place], [address] Neutrophils/100 WBC (Bld) 70.9 % High 47-70 [facility] Comment on above: Performed By: #### L 501.2450, L500.4050, L100.0100, L700.6800 #### [facility] [address] [place], [address] Nucleated RBC (Bld) [#/Vol] 0 10*3/uL Normal 0-5 [facility] Comment on above: Performed By: #### L 501.2450, L500.4050, L100.0100, L700.6800 #### [facility] [address] [place], [address] Platelet mean volume (Bld) [Entitic vol] 10.2 fL Normal 6.2-12.0 [facility] Comment on above: Performed By: #### L 501.2450, L500.4050, L100.0100, L700.6800 #### [facility] [address] [place], [address] Platelets (Bld) [#/Vol] 147 10*3/uL Low 150-450 [facility] Comment on above: Performed By: #### L 501.2450, L500.4050, L100.0100, L700.6800 #### [facility] [address] [place], [address] RBC (Bld) [#/Vol] 5.42 10*6/uL High 4.2-5.4 [facility] Comment on above: Performed By: #### L 501.2450, L500.4050, L100.0100, L700.6800 #### [facility] [address] [place], [address] RDW SD 40.3 fl Normal 35.1-43.9 [facility] Comment on above: Performed By: #### L 501.2450, L500.4050, L100.0100, L700.6800 #### [facility] [address] [place], [address] WBC (Bld) [#/Vol] 11.0 10*3/uL Normal 4.4-11.0 [facility] Comment on above: Performed By: #### L 501.2450, L500.4050, L100.0100, L700.6800 #### [facility] [address] [place], [address] Carbon dioxide, total [Moles /volume] in Central venous bloodOrdered By: Yung Wright on 06-16-2024 CO2 [Moles/Vol] 23.4 mmol/L 21.0-32.0 [facility] Chloride assayOrdered By: Jeremias Wright on 06-16-2024 Chloride [Moles/Vol] 99 mmol/L 98-108 [facility] Comprehensive Metabolic Prof ilon 06-16-2024 Albumin [Mass/Vol] 4.5 g/dL Normal 3.5-5.0 [facility] Comment on above: Performed By: #### L 501.2450, L500.4050, L100.0100, L700.6800 #### [facility] [address] [place], [address] Albumin/Globulin [Mass ratio] 1.5 {ratio} Normal 0.9-2.4 [facility] Comment on above: Performed By: #### L 501.2450, L500.4050, L100.0100, L700.6800 #### [facility] [address] [place], [address] ALK PHOS 68 U/L Normal 35-104 [facility] Comment on above: Performed By: #### L 501.2450, L500.4050, L100.0100, L700.6800 #### [facility] [address] [place], [address] ALT [Catalytic activity/Vol] 26 U/L Normal <=34 [facility] Comment on above: Performed By: #### L 501.2450, L500.4050, L100.0100, L700.6800 #### [facility] [address] [place], [address] AST [Catalytic activity/Vol] 26 U/L Normal <=31 [facility] Comment on above: Performed By: #### L 501.2450, L500.4050, L100.0100, L700.6800 #### [facility] [address] [place], [address] Bilirubin [Mass/Vol] 0.74 mg/dL Normal 0.00-1.30 [facility] Comment on above: Performed By: #### L 501.2450, L500.4050, L100.0100, L700.6800 #### [facility] [address] [place], [address] BUN/CRE 34.9 RATIO High 10-20 [facility] Comment on above: Performed By: #### L 501.2450, L500.4050, L100.0100, L700.6800 #### [facility] [address] [place], [address] Calcium [Mass/Vol] 9.6 mg/dL Normal 7.6-11.0 [facility] Comment on above: Performed By: #### L 501.2450, L500.4050, L100.0100, L700.6800 #### [facility] [address] [place], [address] Chloride [Moles/Vol] 99 mmol/L Normal 98-108 [facility] Comment on above: Performed By: #### L 501.2450, L500.4050, L100.0100, L700.6800 #### [facility] [address] [place], [address] CO2 [Moles/Vol] 23.4 mmol/L Normal 21.0-32.0 [facility] Comment on above: Performed By: #### L 501.2450, L500.4050, L100.0100, L700.6800 #### [facility] [address] [place], [address] Creatinine [Mass/Vol] 0.78 mg/dL Normal 0.70-1.20 [facility] Comment on above: Performed By: #### L 501.2450, L500.4050, L100.0100, L700.6800 #### [facility] [address] [place], [address] ECRCL 113.45 ml/min Normal 50-250 [facility] Comment on above: Performed By: #### L 501.2450, L500.4050, L100.0100, L700.6800 #### [facility] [address] [place], [address] GAP 16 High 5-15 [facility] Comment on above: Performed By: #### L 501.2450, L500.4050, L100.0100, L700.6800 #### [facility] [address] [place], [address] GFR/1.73 sq M.predicted among non-blacks MDRD (S/P/Bld) [Vol rate/Area] 98 mL/min/{1.73_m2} Normal >60 [facility] Comment on above: Result Comment: mL/m in/1.73m2 CKD-EPI Creatinine Equation (2020) Performed By: #### L 501.2450, L500.4050, L100.0100, L700.6800 #### [facility] [address] [place], [address] Globulin (S) [Mass/Vol] 3.1 g/dL Normal 2.2-4.2 [facility] Comment on above: Performed By: #### L 501.2450, L500.4050, L100.0100, L700.6800 #### [facility] [address] [place], [address] Glucose [Mass/Vol] 125 mg/dL High 70-99 [facility] Comment on above: Performed By: #### L 501.2450, L500.4050, L100.0100, L700.6800 #### [facility] [address] [place], [address] Potassium [Moles/Vol] 2.9 mmol/L Low 3.3-5.1 [facility] Comment on above: Performed By: #### L 501.2450, L500.4050, L100.0100, L700.6800 #### [facility] [address] [place], [address] Sodium [Moles/Vol] 138 mmol/L Normal 133-145 [facility] Comment on above: Performed By: #### L 501.2450, L500.4050, L100.0100, L700.6800 #### [facility] [address] [place], [address] T PROT 7.5 g/dL Normal 5.9-8.4 [facility] Comment on above: Performed By: #### L 501.2450, L500.4050, L100.0100, L700.6800 #### [facility] [address] [place], [address] Urea nitrogen [Mass/Vol] 27 mg/dL High 4-19 [facility] Comment on above: Performed By: #### L 501.8780, L500.4050, L100.0100, L700.6800 #### [facility] [address] [place], [address] Emergency Department Summary on 06-16-2024 Emergency Department Summary [facility] Medical Records Department [address] [place] [address] Emergency Department Summary 06/16/24 MR#: [id number] Acct: [id number] Name: TAMMY ANNA Rep #: [id number] : 1985 38 From: Yung Wright DO PCP: [facility] Status:REG ER Location: ED ADDENDUM by Dr. Yung Wright DO on 06/16/24 at 1114 Patient's EKG reviewed and showed sinus rhythm with a rate of 62 bpm. 06/16/24 1114 Cosigner Signature (if applicable): cc: [facility] * Signed HPI History of Present Illness Chief Complaint: Nausea/Vomiting Narrative Narrative: Patient is a 38-year-old female with no known significant past medical history does not follow with a physician on a regular basis who presents to the emergency department with a chief complaint of nausea vomiting and abdominal pain for 3 days. States that eating and drinking makes her pain worse. She states that she has not been around anybody sick that she is aware of. Patient denies any previous abdominal surgeries. Patient states that she vomited right before her arrival here. When questioned where her abdominal pain is she states that it is mainly her stomach but everywhere in her abdomen. [facility] Medical History Costochondritis, acute GERD (gastroesophageal reflux disease) Chronic neck and back pain Shoulder pain Home Medications ???Medication ???Instructions ???Recorded ???Last Taken ???Type dicyclomine 20 mg tablet 20 mg PO TID #20 tabs 06/16/24 Unk nown Rx ondansetron 4 mg disintegrating 4 mg PO Q6H PRN nausea and 5 Unknown Rx tablet vomiting #30 tabs pantoprazole 40 mg tablet,delayed 40 mg PO DAILY 30 days #30 tabs 0 06/16/24 Unknown Rx release potassium chloride 20 mEq oral 20 meq PO BID 5 days #30 ea Unknown Rx packet Allergy/AdvReac Type Severity Reaction Status Date / Time Penicillins Allergy Anaphylaxis Verified 06/16/24 06:26 Family History Other Hypertension Surgical History S/P spinal surgery Hx of section Social History Smoking Status: Current every day smoker tobacco type: cigarettes ROS ROS ED ROS Narrative Constitutional: Denies fevers, chills, headaches Cardiovascular: Denies chest pain or palpitations Respiratory: Denies coughing Abdomen: Complains of abdominal pain, nausea, vomiting as noted above : Denies urinary symptoms Neurological: Denies numbness, weakness, tingling Musculoskeletal: Denies back pain Skin: Denies rashes or lesions EXAM Physical Exam Narrative Exam Narrative: General: Patient lying in bed resting comfortably does not appear to be in acute distress Head: Atraumatic, normocephalic Eyes: PERRL bilaterally, EOMI bilaterally, no conjunctival injection noted Neck: Soft, supple, trachea midline Cardiovascular: Regular rate and rhythm no murmurs gallops rubs noted Respiratory: Clear to auscultation bilaterally Abdomen: Patient has tenderness palpation the right upper quadrant and epigastric region noted on exam with some mild tenderness palpation left lower quadrant no rebound or guarding on exam Extremities: +5/5 strength noted in the bilateral upper and lower extremities Neurological: Patient follow commands and that she was at [facility] years 2024 Skin: Warm, dry, intact no rashes or lesions noted Const Vital Signs: 06/16/24 06:26 06/16/24 08:26 06/16/24 10:00 Temperature 97.9 F Temperature Source Oral Pulse Rate 63 68 68 Respiratory Rate 17 16 18 Blood Pressure 158/107 H 176/90 H 170/88 H Blood Pressure Mean 124 118 115 Pulse Ox 98 98 98 Oxygen Delivery Method Room Air Room Air Room Air MDM MDM MDM Narrative Medical decision making narrative: Patient is a 2-year-old female who presented to the emergency department with chief complaint of nausea vomiting abdominal pain for the last 3 days. On the differential diagnose includes but not limited to cholecystitis, pancreatitis, viral gastroenteritis, ACS. Once workup is obtained reviewed she will be reevaluated. Patient given IV fluids morphine Zofran. Patient CBC was reviewed and showed no evidence leukocytosis white blood count normal at 11, hemoglobin 17.3, plate count was noted at 147. Patient sodium normal 130, potassium was low indicating hypokalemia at 2.9 she was given 40 mill equivalents of supplementation here, patient be given a prescription for potassium the next few days. Patient's creatinine normal at 0.78. Patient AST and ALT were 26 and 26 respectively, total bilirubin normal at 0.74. Corinna (more content not included)... Normal [facility] Eosinophil percentageOrdered By: Yung Wright on 06-16-2024 Eosinophils/100 WBC (Bld) 0.7 % 0-5 [facility] Erythrocyte distribution wid th ratioOrdered By: Yung Wright on 06-16-2024 Erythrocyte distribution width (RBC) [Ratio] 12.5 % 11.6-14.6 [facility] Erythrocyte distribution wid th standard deviationOrdered By: Yung Wright on 06-16-2024 Erythrocyte distribution width (RBC) [Ratio] 40.3 fl 35.1-43.9 [facility] Glomerular filtration rate ( GFR) estimation/1.73 sq m using serum, plasma, or whole bOrdered By: Yung Wright on 06-16-2024 GFR/1.73 sq M.predicted among non-blacks MDRD (S/P/Bld) [Vol rate/Area] 98 mL/min/{1.73_m2} >60 [facility] Comment on above: mL/min/1.73m2 CKD-EP I Creatinine Equation (2020) Hematocrit Auto (Bld) [Volum e fraction]Ordered By: Yung Wright on 06-16-2024 Hematocrit (Bld) [Volume fraction] 47.8 % High 37-47 [facility] Hemoglobin measurementOrdere d By: Yung Wright on 06-16-2024 Hemoglobin (Bld) [Mass/Vol] 17.3 g/dL High 12.0-15.0 [facility] Immature granulocytes/100 WB C Auto (Bld)Ordered By: Yung Wright on 06-16-2024 Immature granulocytes/100 WBC (Bld) 0.500 % 0.0-0.9 [facility] Comment on above: IG% - Immature Granu locytes (promyelocytes, myelocytes and metamyelocytes) > 1% indicates that a LEFT SHIFT is Present. Ketones Test strip Ql (U)Ord ered By: Yung Wright on 06-16-2024 Ketones Ql (U) 15 mg/dl High Negative [facility] - Chemistry and C hemistry - challengeOrdered By: Yung Wright on 06-16-2024 AST [Catalytic activity/Vol] 26 U/L <32 [facility] Lipaseon 06-16-2024 Lipase [Catalytic activity/Vol] 35 U/L Normal 13-75 [facility] Comment on above: Result Comment: Plea se note: LIPASE revised reference range effective 22. New Lipase methodology. Expected to produce lower values than the previous assay method. NEW Reference Range: 13 - 75 U/L Performed By: #### L 501.2450, L500.4050, L100.0100, L700.6800 #### [facility] [address] [place], [address] Lipase measurementOrdered By : Yung Wright on 06-16-2024 Lipase [Catalytic activity/Vol] 35 U/L 13-75 [facility] Comment on above: Please note:LIPASE r evised reference range effective 22. New Lipase methodology. Expected to produce lower values than the previous assay method. NEW Reference Range: 13 - 75 U/L MCV (mean corpuscular volume ) determinationOrdered By: Yung rWight on 06-16-2024 MCV (RBC) [Entitic vol] 88.2 fL 81-99 [facility] Mean corpuscular hemoglobin (MCH) determinationOrdered By: Yung Wright on 06-16-2024 MCH (RBC) [Entitic mass] 31.9 pg 27.0-32.0 [facility] Mean corpuscular hemoglobin concentration (MCHC) determinationOrdered By: Yung Wright on 06-16-2024 MCHC (RBC) [Mass/Vol] 36.2 g/dL High 32-36 [facility] Mean platelet volume determi nationOrdered By: Yung Wright on 06-16-2024 Platelet mean volume (Bld) [Entitic vol] 10.2 fL 6.2-12.0 [facility] Microscopic analysis of urin e for red blood cells (RBC)Ordered By: Yung Wright on 06-16-2024 Microscopic analysis of urine for red blood cells (RBC) 0 SEEN /hpf 0-5 [facility] Monocyte percentageOrdered B y: Yung Wright on 06-16-2024 Monocytes/100 WBC (Bld) 7.1 % 0-10 [facility] Mucus LM Ql (Urine sed)Order ed By: Yung Wright on 06-16-2024 Mucus Ql (Urine sed) 0 SEEN /hpf [facility] Neutrophil percentageOrdered By: Yung Wright on 06-16-2024 Neutrophils/100 WBC (Bld) 70.9 % High 47-70 [facility] Nitrite Test strip Ql (U)Ord ered By: Yung Wright on 06-16-2024 Nitrite Ql (U) Negative Negative [facility] Nucleated red blood cell per centageOrdered By: Yung Wright on 06-16-2024 Nucleated RBC/100 WBC (Bld) [Ratio] 0 % 0-5 [facility] Platelet countOrdered By: Jeremias Wright on 06-16-2024 Platelets (Bld) [#/Vol] 147 10*3/uL Low 150-450 [facility] Potassium measurement (mass/ volume)Ordered By: Yung Wright on 06-16-2024 Potassium (Unsp spec) [Mass/Vol] 2.9 mmol/L Low 3.3-5.1 [facility] ,Serum,hCG Quali.on 06-16-2024 HCG, SERUM QUAL Negative Normal [facility] Comment on above: Performed By: #### L 501.2450, L500.4050, L100.0100, L700.6800 ####[facility] [id number] [place], [address] Protein Test strip Ql (U)Ord ered By: Yung Wright on 06-16-2024 Protein Ql (U) 100 mg/dl High Negative [facility] RBC Auto (Bld) [#/Vol]Ordere d By: Yung Wright on 06-16-2024 RBC (Bld) [#/Vol] 5.42 10*6/uL High 4.2-5.4 [facility] Serum beta-hCG test, qualita tiveOrdered By: Yung Wright on 06-16-2024 Beta HCG ( test) Ql Negative [facility] Serum creatinine measurement (mass/volume)Ordered By: Yung Wright on 06-16-2024 Creatinine [Mass/Vol] 0.78 mg/dL 0.70-1.20 [facility] Serum globulin measurementOr dered By: Yung Wright on 06-16-2024 Globulin (S) [Mass/Vol] 3.1 g/dL 2.2-4.2 [facility] Serum glucose measurement (m ass/volume)Ordered By: Yung Wright on 06-16-2024 Glucose [Mass/Vol] 125 mg/dL High 70-99 [facility] Serum or plasma alanine tello otransferase (ALT) measurementOrdered By: Yung Wright 06-16-2024 ALT [Catalytic activity/Vol] 26 U/L <35 [facility] Serum or plasma albumin jennifer urement (mass/volume)Ordered By: Yung Wright 06-16-2024 Albumin [Mass/Vol] 4.5 g/dL 3.5-5.0 [facility] Serum or plasma albumin/glob ulin mass ratioOrdered By: Yung Wright 06-16-2024 Albumin/Globulin [Mass ratio] 1.5 {ratio} 0.9-2.4 [facility] Serum or plasma alkaline heriberto sphatase measurementOrdered By: Yung Wright on 06-16-2024 ALP [Catalytic activity/Vol] 68 U/L 35-104 [facility] Serum or plasma calcium jennifer urement (mass/volume)Ordered By: Yung Wright 06-16-2024 Calcium [Mass/Vol] 9.6 mg/dL 7.6-11.0 [facility] Serum or plasma urea nitroge n measurement (mass/volume)Ordered By: Yung Wright on 06-16-2024 Urea nitrogen [Mass/Vol] 27 mg/dL High 4-19 [facility] Sodium levelOrdered By: Lorrie Wright on 06-16-2024 Sodium [Moles/Vol] 138 mmol/L 133-145 [facility] Squamous epithelial cells de tection in urine sediment by light microscopyOrdered By: Yung Wright on 06-16-2024 Epithelial cells.squamous LM Ql (Urine sed) 0-5 SEEN /hpf 5-10 [facility] Total proteinOrdered By: Nba Wright on 06-16-2024 Protein [Mass/Vol] 7.5 g/dL 5.9-8.4 [facility] Urinalysis, Completeon 06-16 CAST,FINE GRAN 0-5 SEEN Normal 0-5 [facility] Comment on above: Order Comment: CLEAN CATCH Performed By: #### L 400.0001 #### [facility] [address] [facility] [address] AMORPHOUS 1+ Normal [facility] Comment on above: Order Comment: CLEAN CATCH Performed By: #### L 400.0001 #### [facility] [address] [facility] [address] EPI,SQUAMOUS 0-5 SEEN Normal 5-10 [facility] Comment on above: Order Comment: CLEAN CATCH Performed By: #### L 400.0001 #### [facility] [address] [facility] [address] BACTERIA 0 SEEN Normal None Seen [facility] Comment on above: Order Comment: CLEAN CATCH Performed By: #### L 400.0001 #### [facility] [address] [place], [address] Mucus Ql (Urine sed) 0 SEEN Normal [facility] Comment on above: Order Comment: CLEAN CATCH Performed By: #### L 400.0001 #### [facility] [address] [facility] [id number] RBC 0 SEEN Normal 0-5 [facility] Comment on above: Order Comment: CLEAN CATCH Performed By: #### L 400.0001 #### [facility] [address] [place], [address] WBC 0 SEEN Normal 0-5 [facility] Comment on above: Order Comment: CLEAN CATCH Performed By: #### L 400.0001 #### [facility] [address] [place], [place], [id number] Urine clarityOrdered By: Nba Wright on 06-16-2024 Clarity (U) Clear Clear [facility] Urine color determinationOrd ered By: Yung Wright on 06-16-2024 Color (U) Yellow Yellow [facility] Urine glucose detectionOrder ed By: Yung Wright on 06-16-2024 Glucose Ql (U) Normal mg/dl Normal [facility] Urine leukocyte esterase det ection by dipstickOrdered By: Yung Wright on 06-16-2024 Leukocyte esterase Test strip Ql (U) 25 /ul High Negative [facility] Urine pHOrdered By: Yung raya on 06-16-2024 pH (U) 6.5 [pH] 5.0 - 8.0 [facility] Urine sediment bacteria coun t by microscopy (number/high power field)Ordered By: Yung Wright on 06-16-2024 Bacteria LM.HPF (Urine sed) [#/Area] 0 /[HPF] None Seen [facility] Urine sediment fine granular cast count by microscopy (number/low power field)Ordered By: Yung Wright on 06-16-2024 Fine Granular Casts LM.LPF (Urine sed) [#/Area] 0-5 SEEN /lpf 0-5 [facility] Urine specific gravity measu rementOrdered By: Yung Wright on 06-16-2024 Specific gravity (U) [Rel density] 1.020 1.002-1.030 [facility] Urine urobilinogen measureme ntOrdered By: Yung Wright on 06-16-2024 Urobilinogen Ql (U) Normal mg/dl Normal [facility] White blood cell (WBC) count Ordered By: Yung Wright on 06-16-2024 WBC (Bld) [#/Vol] 11.0 10*3/uL 4.4-11.0 [facility] White blood cell countOrdere d By: Yung Wright on 06-16-2024 White blood cell count 0 SEEN /hpf 0-5 [facility] Cerv Spine 2 or 3 Viewson Cerv Spine 2 or 3 Views [facility] Imaging Services [address] [place] [address] Cerv Spine 2 or 3 Views MR#: [id number] Acct: [id number] Name: TAMMY ANNA Rep #: [id number] : 1985 F 38 From: Markos Chapman MD PCP: [facility] Status: PRE ER Study: Cerv Spine 2 or 3 Views Date of Exam: 03/28/24 Exam# [id number] Ordering Dr: Henry Ventura DO PROCEDURE: CERV SPINE 2 OR 3 VIEWS REASON FOR EXAM: Left arm numbness in the morning. TECHNIQUE: 3 views of the cervical spine. COMPARISON: 12/03/2021. FINDINGS: Normal vertebral body heights. No visible fracture. Nonfused disc space heights are preserved. C5-6 anterior cervical discectomy and fusion. Prevertebral soft tissues are unremarkable. RAD/Cerv Spine 2 or 3 Views IMPRESSION: No acute osseous abnormalities. C5-6 ACDF. Reading Location: [facility] CC: Dr. Henry Ventura DO; [facility] 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: Signed Normal [facility] Emergency Department Summary on 03-28-2024 Emergency Department Summary [facility] Medical Records Department [address] [place] [address] Emergency Department Summary 03/28/24 MR#: [id number] Acct: [id number] Name: TAMMY ANNA Rep #: [id number] : 1985 38 From: Henry Pimentel PCP: [facility] Status:DEP ER Location: ED HPI History of Present Illness Chief Complaint: Upper Extremity Injury Informant: patient Narrative Narrative: Presents intermittent pain left shoulder and neck radiates down her hand and in her back. No trauma. She has had carpal tunnel surgery to her right side states this feels different. Sometimes she is wakes up with numbness. Currently denies any radicular pain or numbness. Currently does not have a PCP. Prior similar symptoms: No PFSH PFSH Medical History Costochondritis, acute GERD (gastroesophageal reflux disease) Chronic neck and back pain Shoulder pain Home Medications ???Medication ???Instructions ???Recorded ???Last Taken ???Type prednisone 20 mg tablet 60 mg (3 x 20 mg) PO DAILY #21 05/17 Unknown Rx TABLETS Allergy/AdvReac Type Severity Reaction Status Date / Time Penicillins Allergy Anaphylaxis Verified 03/28/24 14:58 Family History Other Hypertension Surgical History S/P spinal surgery Hx of section Social History Smoking Status: Current every day smoker tobacco type: cigarettes ROS ROS ED Constitutional Constitutional ED: Denies chills, fever(s) or sweats ENT ENT ED: Denies sore throat Cardiovascular Cardiovascular: Denies chest pain, leg edema, palpitations or racing heartbeat Respiratory/Chest Respiratory/Chest: Denies cough, dyspnea or dyspnea on exertion Gastrointestinal Gastrointestinal: Denies abdominal pain, diarrhea, nausea or vomiting Genitourinary Genitourinary ED: Denies dysuria, hematuria or urinary frequency Musculoskeletal Musculoskeletal: Reports back pain, extremity pain and neck pain Integumentary Denies rash or wounds Neurologic Neurologic: Reports paresthesias; Denies headache(s) or weakness EXAM Physical Exam Const Vital Signs: 03/28/24 14:56 Temperature 97.7 F L Temperature Source Temporal Pulse Rate 92 Respiratory Rate 16 Blood Pressure 119/86 H Blood Pressure Mean 97 Pulse Ox 97 Oxygen Delivery Method Room Air Positive well nourished and well developed General Appearance ED: well developed and NAD HEENT Reports moist mucous membranes normocephalic and atraumatic Eyes General Eye ED: Yes normal appearance of both eyes Neck full ROM Neck Narrative: Mild paracervical tenderness more in the left. Negative Spurling's test bilaterally. 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 Pulses are intact distally upper extremities. No paresthesias currently. Left upper extremity: No clavicle tenderness. Full range of motion of the shoulder. General Extremety ED: Negative for edema or tenderness General Extremity: Negative for edema Neuro oriented x3 and no sensory deficits noted Sensorium / Orientation: awake and alert Skin no rashes or lesions noted and no wounds MDM MDM MDM Narrative Medical decision making narrative: Interventions / MDM: Differential diagnosis: Cervical radiculopathy Diagnosis considered but do not suspect: N/A My EKG interpretation: N/A Imaging independently reviewed and interpreted by myself: 3 view cervical spine C5-C6 ACDF with hardware stable. Left shoulder 3 views: No acute process. Also read by radiology. External documents reviewed: N/A Test considered but not ordered:N/A ED course: Examination patient describes pain and numbness C6 pattern on the left. Spurling's test was negative. She has pain along the medial scapula in the left. Concern for cervical radiculopathy. No current numbness or weakness. With her shoulder pain will obtain shoulder x-ray and cervical x-rays. X-rays stable. Notes a cervical C5-C6 ACDF. She has left-sided cervical radiculopathy of C6. Prior to her surgery she had right sided symptoms. She currently does not follow with her surgeon. She is given follow-up with pain management and spinal surgeon (more content not included)... Normal [facility] Shoulder min 2 Viewson 03-28 Shoulder min 2 Views [facility] Imaging Services [address] [place] [id number] Shoulder min 2 Views MR#: [id number] Acct: [id number] Name: TAMMY ANNA Rep #: [id number] : 1985 F 38 From: Markos Chapman MD PCP: [facility] Status: PRE ER Study: Shoulder min 2 Views Date of Exam: 03/28/24 Exam# [id number] Ordering Dr: Henry Ventura DO PROCEDURE: SHOULDER MIN 2 VIEWS REASON FOR EXAM: Arm numbness. TECHNIQUE: Four views of the left shoulder. COMPARISON: None. FINDINGS: LEFT SHOULDER: No fracture. No suspicious bone lesion. Normal alignment of the acromioclavicular and glenohumeral joints. Soft tissues are unremarkable. RAD/Shoulder min 2 Views IMPRESSION: No acute osseous abnormalities. Reading Location: [facility] CC: Dr. Henry Ventura DO; [facility] 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: Signed Normal [facility] Basic Metabolic Profile (BMP )on 03-06-2024 BUN/CRE 13.8 RATIO Normal 10-20 [facility] Comment on above: Performed By: #### L 100.0100, L500.2500 #### [facility] [address] [facility] [place], [address] CA,Total 8.6 mg/dL Normal 8.5-10.1 [facility] Comment on above: Performed By: #### L 100.0100, L500.2500 #### [facility] [address] [facility] [place], [address] Chloride [Moles/Vol] 110 mmol/L High 98-107 [facility] Comment on above: Performed By: #### L 100.0100, L500.2500 #### [facility] [address] [facility] [place], [address] CO2 [Moles/Vol] 25.0 mmol/L Normal 21.0-32.0 [facility] Comment on above: Performed By: #### L 100.0100, L500.2500 #### [facility] [address] [place], [address] Creatinine [Mass/Vol] 0.65 mg/dL Normal 0.55-1.02 [facility] Comment on above: Result Comment: The validity of the calculated GFR GFRAA in patients over 70 years has not been determined. Clinical correlation is essential. Performed By: #### L 100.0100, L500.2500 #### [facility] [address] [place], [address] ECRCL 137.12 ml/min Normal [facility] Comment on above: Performed By: #### L 100.0100, L500.2500 #### [facility] [address] [place], [address] EST GFR - AA 129 mL/min Normal >60 [facility] Comment on above: Result Comment: Afri can Dominican GFR Calc Performed By: #### L 100.0100, L500.2500 #### [facility] [address] [place], [address] GAP 5 Normal 5-15 [facility] Comment on above: Performed By: #### L 100.0100, L500.2500 #### [facility] [address] [place], [address] GFR/1.73 sq M.predicted among non-blacks MDRD (S/P/Bld) [Vol rate/Area] 106 mL/min/{1.73_m2} Normal >60 [facility] Comment on above: Result Comment: Non- GFR Calc Performed By: #### L 100.0100, L500.2500 #### [facility] [address] [place], [address] Glucose [Mass/Vol] 97 mg/dL Normal 74-106 [facility] Comment on above: Performed By: #### L 100.0100, L500.2500 #### [facility] [address] [place], [address] Potassium [Moles/Vol] 3.6 mmol/L Normal 3.5-5.1 [facility] Comment on above: Performed By: #### L 100.0100, L500.2500 #### [facility] [address] [place], [address] Sodium [Moles/Vol] 140 mmol/L Normal 136-145 [facility] Comment on above: Performed By: #### L 100.0100, L500.2500 #### [facility] [address] [place], [address] Urea nitrogen [Mass/Vol] 9 mg/dL Normal 7-18 [facility] Comment on above: Performed By: #### L 100.0100, L500.2500 #### [facility] [address] [place], [address] CBC W/Diff, Automatedon -02 24-2024 Absolute Lymph 3.50 X10 3/uL Normal 0.83-4.51 [facility] Comment on above: Performed By: #### L 100.0100, L500.2500 #### [facility] [address] [place], [address] Absolute Neut 3.8 X10 3/uL Normal 2.0-7.7 [facility] Comment on above: Performed By: #### L 100.0100, L500.2500 #### [facility] [address] [place], [address] Basophils/100 WBC (Bld) 0.4 % Normal 0-1 [facility] Comment on above: Performed By: #### L 100.0100, L500.2500 #### [facility] [address] [place], [address] Eosinophils/100 WBC (Bld) 3.5 % Normal 0-5 [facility] Comment on above: Performed By: #### L 100.0100, L500.2500 #### [facility] [address] [place], [address] Erythrocyte distribution width (RBC) [Ratio] 12.5 % Normal 11.6-14.6 [facility] Comment on above: Performed By: #### L 100.0100, L500.2500 #### [facility] [address] [place], [address] Hematocrit (Bld) [Volume fraction] 39.9 % Normal 37-47 [facility] Comment on above: Performed By: #### L 100.0100, L500.2500 #### [facility] [address] [place], [address] Hemoglobin (Bld) [Mass/Vol] 14.1 g/dL Normal 12.0-15.0 [facility] Comment on above: Performed By: #### L 100.0100, L500.2500 #### [facility] [address] [place], [address] IG% 0.400 Normal 0.0-0.9 [facility] Comment on above: Result Comment: IG% - Immature Granulocytes (promyelocytes, myelocytes and metamyelocytes) > 1% indicates that a LEFT SHIFT is Present. Performed By: #### L 100.0100, L500.2500 #### [facility] [address] [place], [address] Lymphocytes/100 WBC (Bld) 43.3 % High 19-41 [facility] Comment on above: Performed By: #### L 100.0100, L500.2500 #### [facility] [address] [place], [address] MCH (RBC) [Entitic mass] 31.6 pg Normal 27.0-32.0 [facility] Comment on above: Performed By: #### L 100.0100, L500.2500 #### [facility] [address] [place], [address] MCHC (RBC) [Mass/Vol] 35.3 g/dL Normal 32-36 [facility] Comment on above: Performed By: #### L 100.0100, L500.2500 #### [facility] [address] [place], [address] MCV (RBC) [Entitic vol] 89.5 fL Normal 81-99 [facility] Comment on above: Performed By: #### L 100.0100, L500.2500 #### [facility] [address] [place], [address] Monocytes/100 WBC (Bld) 6.1 % Normal 0-10 [facility] Comment on above: Performed By: #### L 100.0100, L500.2500 #### [facility] [address] [place], [address] Neutrophils/100 WBC (Bld) 46.3 % Low 47-70 [facility] Comment on above: Performed By: #### L 100.0100, L500.2500 #### [facility] [address] [place], [address] Nucleated RBC (Bld) [#/Vol] 0 10*3/uL Normal 0-5 [facility] Comment on above: Performed By: #### L 100.0100, L500.2500 #### [facility] [address] [place], [address] Platelet mean volume (Bld) [Entitic vol] 10.2 fL Normal 6.2-12.0 [facility] Comment on above: Performed By: #### L 100.0100, L500.2500 #### [facility] [address] [place], [address] Platelets (Bld) [#/Vol] 161 10*3/uL Normal 150-450 [facility] Comment on above: Performed By: #### L 100.0100, L500.2500 #### [facility] [address] [place], [address] RBC (Bld) [#/Vol] 4.46 10*6/uL Normal 4.2-5.4 [facility] Comment on above: Performed By: #### L 100.0100, L500.2500 #### [facility] [address] [place], [address] RDW SD 41.0 fl Normal 35.1-43.9 [facility] Comment on above: Performed By: #### L 100.0100, L500.2500 #### [facility] [address] [place], [address] WBC (Bld) [#/Vol] 8.1 10*3/uL Normal 4.4-11.0 [facility] Comment on above: Performed By: #### L 100.0100, L500.2500 #### [facility] [address] [place], [address] Emergency Department Summary on 03-06-2024 Emergency Department Summary [facility] Medical Records Department [address] [place] [address] Emergency Department Summary 03/06/24 MR#: [id number] Acct: [id number] Name: TAMMY ANNA Rep #: [id number] : 1985 38 From: Damari Beyer DO PCP: [facility] Status:DEP ER Location: ED HPI History of Present Illness Chief Complaint: Headache Detail of Chief Complaint: Patient presents with headache x 5 days Informant: patient Narrative Narrative: Patient presents to the ER with complaint headache that started 5 days ago. Patient states that her family developed a viral type gastroenteritis illness last weekend and she initially started with nausea and vomiting and diarrhea. Headache started 5 days ago. She never developed a fever. She been taking ibuprofen and Aleve and that seems to decrease the headache but then it comes back and never completely resolved the last 5 days. Her vomiting and diarrhea have resolved. No family history of brain tumors or aneurysms. Nobody else in the household with headache currently. No concern for carbon oxide poisoning. [facility] Medical History Chronic neck and back pain Costochondritis, acute GERD (gastroesophageal reflux disease) Shoulder pain Home Medications ???Medication ???Instructions ???Recorded ???Last Taken ???Type NK 03/06/24 Unknown History Allergy/AdvReac Type Severity Reaction Status Date / Time Penicillins Allergy Anaphylaxis Verified 03/06/24 18:39 Family History Other Hypertension Surgical History Hx of section S/P spinal surgery Social History Smoking Status: Current every day smoker tobacco type: cigarettes ROS ROS ED Review of Systems ROS Unobtainable: other Constitutional Constitutional ED: Reports lethargy; Denies chills, fever(s), sweats or weight loss Eyes Eyes: Denies blurry vision, change in vision or diplopia ENT ENT ED: Denies rhinorrhea or sore throat Cardiovascular Cardiovascular: Denies chest pain, orthopnea or racing heartbeat Respiratory/Chest Respiratory/Chest: Denies cough, dyspnea, dyspnea on exertion, orthopnea or sputum Gastrointestinal Gastrointestinal: Denies abdominal pain, diarrhea, nausea or vomiting Genitourinary Genitourinary ED: Denies dysuria, hematuria or urinary frequency Musculoskeletal Musculoskeletal: Denies arthralgias, back pain, myalgias or neck pain Integumentary Denies abscess, Abrasions or rash Neurologic Neurologic: Reports headache(s); Denies weakness Psychiatric Psychiatric: Denies anxiety, depression or suicidal thoughts Endocrine Endocrinology: Denies polydipsia, polyphagia or polyuria Hematologic/Lymphatic Hematologic/Lymphatic: Denies easy bleeding, easy bruising or lymphadenopathy Allergic/Immunologic Allergic/Immunologic ED: Denies mouth swelling, tongue swelling or urticaria EXAM Physical Exam Const Vital Signs: 03/06/24 18:39 Temperature 98.1 F Temperature Source Temporal Pulse Rate 75 Respiratory Rate 18 Blood Pressure 131/103 H Blood Pressure Mean 112 Pulse Ox 97 Positive well nourished and well developed General Appearance ED: well developed and NAD HEENT Reports TM's clear and moist mucous membranes normocephalic and atraumatic; Negative for trauma or tenderness Tympanic Membrane ED: Yes TM's clear Eyes PERRL and EOMs intact bilaterally Eyes Narrative: Patient has a small subconjunctival hemorrhage noted to the right inferior conjunctiva. General Eye ED: Negative for pale conjunctiva or scleral icterus Neck no lymphadenopathy, supple and no JVD General: Negative for tenderness Chest Wall inspection of chest normal and palpation of chest normal Chest: Negative for tenderness Resp normal respiratory effort and clear to auscultation bilaterally Effort and Inspection: Negative for respiratory distress or pain with movement Auscultation: Negative for rhonchi, wheezes or diminished lung sounds Cardio regular rate, regular rhythm, S1 normal heart sound, S2 normal heart sound and no murmurs Peripheral Pulses: pulses 2+ throughout GI normal to inspection, nondistended, normoactive bowel sounds, soft to palpation, non-tender, non- distended and no masses Back/Spine no CVA tenderness and no thoracic nor lumbar tenderness Extremity normal to inspection General Extremety ED: Negative for edema General Extremity: Negative for edema Neuro oriented x3, CN's II-XII intact bilaterally, no sensory deficits noted and gait normal Neuro Narrative: Finger-nose and heel pascual testing within normal limits, negative Romberg, negative (more content not included)... [facility] ) -------- TAMMY ANNA ([id number]) 1985 F Date Time Provider Department 05/09/23 2:45 PM RENATO MONTANO [facility] During your visit today, we recorded the following information about you: Temperature Pulse Respiration Blood pressure 98.2 degrees 63/minute 18/minute 118/76 Weight 91.6 kg Renato Montano MD 05/09/2023 3:45 PM Signed Patient presents with: Pain, Sinus: Sinus pain [...] VITALS: BP 118/76 Pulse 63 Temp 36.8 ?C (98.2 ?F) (Tympanic) Resp 18 Wt 91.6 kg (201 lb 15.1 oz) LMP 05/19/2021 SpO2 94% BMI 29.82 kg/m? PE: Gen: uncomfortable, holding her face Eyes: [...] penicillin. Encouraged appropriate amounts of as needed [id number] analgesia. Schedule follow-up with dentist. Renato Montano MD Allergies As of Date: 05/09/2023 Noted Allergy Reaction PENICILLINS 10/05/2018 10 - Anaphylaxis Date Reviewed: 05/09/2023 Reviewed by: Nereida Harrington LPN - Fully Assessed Reason for Visit: Pain, Sinus [857] Cmt: Sinus pain and pressure-possibly a tooth ache x 4 days Primary Visit Diagnosis:Toothache [K08.89] Order(s):clindamycin (CLEOCIN) 150 mg capsuleTake 3 capsules by mouth three times a day for 5 days.Disp: 45 capsuleRfl: 0 Prescriptions as of 05/09/2023 - clindamycin (CLEOCIN) 150 mg capsule Take 3 capsules by mouth three times a day for 5 days. - pregabalin (LYRICA) 75 mg capsule Take 1 capsule by mouth twice daily. - loratadine (CLARITIN) 10 mg tablet Take 10 mg by mouth once daily. - omeprazole (PRILOSEC) 40 mg capsule Take 1 capsule by mouth once daily. Problem List As Of Date 05/09/2023 Noted Resolved Atrial paroxysmal tachycardia (HCC) [I47.19] 12/24/2021 Anxiety attack [F41.0] 12/24/2021 Acute back pain with sciatica, right [M54.41] 04/29/2022 Cervicalgia [M54.2] 04/29/2022 Cervical myelopathy (HCC) [G95.9] 06/02/2022 Cervical stenosis of spine [M48.02] 06/02/2022 Current smoker [F17.200] 06/05/2022 GERD (gastroesophageal reflux disease) [K21.9] 06/05/2022 Class 1 obesity due to excess calories without *06/05/2022 Post-operative state [Z98.890] 07/04/2022 Prescriptions ordered this encounter Disp Refills Start End CLINDAMYCIN HCL 150 MG CAPSULE 45 c* 0 05/09/2023 05/14/2023 Route: ORAL Sig: Take 3 capsules by mouth three times a day for 5 days. Encounter Status:Closed by RENATO MONTANO on 05/09/23 [facility] AP/LATon 10- [facility] XR CERVICAL 2V AP/LATon 10-0 XR CERVICAL 2V AP/LAT * * *Final Report* * * DATE OF EXAM: Nov 25 2022 11:51AM [id number] [id number] - XR CERVICAL 2V AP/LAT / PROCEDURE REASON: Cervical myelopathy (HCC) * * * * Physician Interpretation * * * * EXAM TITLE: XR CERVICAL 2V AP/LAT EXAM DATE/TIME: 11/25/2022 11:51 AM COMPARISON: X-ray cervical spine on 09/17/2022 CLINICAL INDICATION/HISTORY: Follow-up. TECHNIQUE: AP and lateral views of the cervical spine are presented. FINDINGS: Status post C5-C6 anterior spinal fusion, with intervertebral grafting. The alignment has been stable. No failure of the surgical hardware. The disc spaces are well preserved. There is no significant osteophyte formation. The prevertebral soft tissues are normal. IMPRESSION: Status post C5-C6 anterior spinal fusion. 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 Telephone ([facility]) -------- TAMMY ANNA ([id number]) 1985 F Date Time Provider Department 11/20/22 REYES ROY [facility] During your visit today, we recorded the following information about you: Trina Oreilly 11/20/2022 10:29 AM Signed NI PHONE Name of caller : Tammy Relationship to patient : Self If not self Will need patient permission to release results or disclose health information with called documented in fyi. Was permission obtained from patient ? Yes Patient identified by Name and Date of . ( Tammy Anna, 1985). Yes Reason for Call : Patient calling stating she is still in pain. The base of her neck, down her spine to her left leg. Lyrica did now agree with her. OTC not helping. Please call to help her. Number to return call [phone] Okay to leave a message ? Yes Last office visit 08/21/2022 with Manuela Next office visit 11/27/2022 with Manuela Thank you calling [facility] [place]. You will receive a return call within 48 hours ( or 2 business days if close to the weekend). If you feel that this is an urgent issue and needs immediate attention, it is recommended that you contact your primary care provider office or proceed to your nearest Urgent Care Center of Emergency Room ED for evaluation/treatment. Carolina Hendricks RN 11/20/2022 11:24 AM Signed NEUROSURGERY CARE COORDINATION [facility] QUICK NOTE ? Spoke to Tammy, patient (s/p C5/6 ACDF on 07/04/22) ? Reason for call: Pt reports experiencing new neurological pain. Pt reports pain starting at back of neck, radiating down spine and into Lt hip and LLE. Per patient, she was experiencing RLE pain before surgery in June, now pain is LLE. Pt states she has been experiencing pain for a while, worse in the last week. Pt reports LLE weakness, her Lt leg giving out spontaneously at times. Pt denies numbness or tingling. Pt reports she had one fall in August. Denies any falls since. Saw Dr Key in rheumatology in August. Was prescribed Lyrica. Pt reports she only took once and discontinued d/t GI upset. Additional recs per Dr Key was to f/u in November and possible pain mgmt referral. Pt has not made f/u appt and states she is trying to stay away from narcotics and was not interested in pain mgmt at this time. Advised pt to f/u with rheumatology as discussed. Pt reports only taking tylenol, ibuprofen at this time for pain without relief. Pt scheduled to see Dr Roy next week with Xray prior. Confirmed appt with pt. Advised pt to go to ED for urgent evaluation of neurological symptoms and pain mgmt for intractable pain. Pt states she does not want to go to ED, understands red flag symptoms requiring ED visit. Verbalizes understanding she will need to go to ED if she feels she needs urgent/immediate eval. For pain symptoms. Dr Roy does not prescribe pain medication outside of immediate postop period. Pt verbalizes understanding she will need new xray before visit with Dr Roy next week. Will forward to NSG team for recs and update patient. Pt verbalizes understanding and agrees with plan. RUBENS Briceno, RN 11/20/2022 11:22 AM Allergies As of Date: 11/20/2022 Noted Allergy Reaction PENICILLINS 10/05/2018 10 - Anaphylaxis Date Reviewed: 09/17/2022 Reviewed by: Desiree Yang Ma - Fully Assessed Reason for Visit: Patient Question [0384] Prescriptions as of 11/24/2022 - pregabalin (LYRICA) 75 mg capsule Take 1 capsule by mouth twice daily. - loratadine (CLARITIN) 10 mg tablet Take 10 mg by mouth once daily. - omeprazole (PRILOSEC) 40 mg capsule Take 1 capsule by mouth once daily. Problem List As Of Date 11/20/2022 Noted Resolved Atrial paroxysmal tachycardia (HCC) [I47.19] 12/24/2021 Anxiety attack [F41.0] 12/24/2021 Acute back pain with sciatica, right [M54.41] 04/29/2022 Cervicalgia [M54.2] 04/29/2022 Cervical myelopathy (HCC) [G95.9] 06/02/2022 Cervical stenosis of spine [M48.02] 06/02/2022 Current smoker [F17.200] 06/05/2022 GERD (gastroesophageal reflux disease) [K21.9] 06/05/2022 Class 1 obesity due to excess calories without *06/05/2022 Post-operative state [Z98.890] 07/04/2022 Encounter Status:Closed by CAROLINA SOLIZ on 11/20/22 [facility] CNOVon 09-17-2022 CNOV Office Visit (RHEUMN ) -------- TAMMY ANNA ([id number]) 1985 F Date Time Provider Department 09/17/22 2:00 PM DIVINA KEY During your visit today, we recorded the following information about you: Temperature Pulse Blood pressure Weight 97.7 degrees 81/minute 136/96 95.9 kg Height 1.753 m Divina Key MD 09/17/2022 3:16 PM Signed MD Tammy Cervantes September 16, 2022 Referring Provider: PCP: Tonya Arriaga, YING Chief Complaint: Patient presents with: Joint Pain [...] and inflammatory markers are negative except for HOMICIDE DETECTIVE of 1.1. XR shows DJD and scoliosis. [...] 07/04/2022. The surgery helps with her pain, communication coordinator strength, dexterity, tingling sensation and balance. She [...] Occiput BL Greater trochanter BL Gluteal BL Tra (more content not included)... Normal [facility] XR CERV GENERAL 2V AP/LATon 09-17-2022 [facility] XR CERVICAL 2V AP/LATon 08-24 XR CERVICAL 2V AP/LAT * * *Final Report* * * DATE OF EXAM: Sep 17 2022 2:13PM AOX [id number] - XR CERVICAL 2V AP/LAT / PROCEDURE REASON: multiple diagnoses * * * * Physician Interpretation * * * * HISTORY: Fibromyalgia Cervical myelopathy (HCC) TECHNIQUE: Cervical spine, 2 views COMPARISON: 07/05/2022 RESULT: There is straightening of the normal cervical lordosis. Again seen is postsurgical change of anterior fusion C5-6 with intact anterior plate and screws and interbody graft. Normal cervical vertebral body heights and disc space heights. 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 CNCOon 08-22-20[address] [facility] CNPNon 08-22-2022 CNPN Telephone ([facility]) -------- TAMMY ANNA ([id number]) 1985 F Date Time Provider Department 08/22/22 REYES ROY During your visit today, we recorded the following information about you: Alpa Casas Coord 08/22/2022 1:47 PM Signed NI PHONE Name of caller : Tammy [...] through my chart per patient's request. Alpa Casas Coord Cris Mcdonnell PSS 08/22/2022 2:06 PM Signed Letter sent through [employer] Alpa Casas Coord 08/22/2022 2:27 PM Signed NI PHONE Name of caller : Tammy [...] then no limit if tolerating well. Alpa Casas Coord Allergies As of Date: 08/22/2022 Noted Allergy Reaction PENICILLINS 10/05/2018 10 - Anaphylaxis Date Reviewed: 08/21/2022 Reviewed by: John Stevenson - Fully Assessed Reason for Visit: Patient Question [3757] Prescriptions as of 08/22/2022 - loratadine (CLARITIN) 10 mg tablet Take 10 mg by mouth once daily. - omeprazole (PRILOSEC) 40 mg capsule Take 1 capsule by mouth once daily. Problem List As Of Date 08/22/2022 Noted Resolved Atrial paroxysmal tachycardia (HCC) [I47.1] 12/24/2021 Anxiety attack [F41.0] 12/24/2021 Acute back pain with sciatica, right [M54.41] 04/29/2022 Cervicalgia [M54.2] 04/29/2022 Cervical myelopathy (HCC) [G95.9] 06/02/2022 Cervical stenosis of spine [M48.02] 06/02/2022 Current smoker [F17.200] 06/05/2022 GERD (gastroesophageal reflux disease) [K21.9] 06/05/2022 Class 1 obesity due to excess calories without *06/05/2022 Post-operative state [Z98.890] 07/04/2022 Encounter Status:Closed by CRIS WILDE on 08/22/22 [facility] CNOVon 08-21-2022 [facility] -------- TAMMY ANNA ([id number]) 1985 F Date Time Provider Department 08/21/22 11:40 AM REYES ROY [facility] During your visit today, we recorded the following information about you: Temperature Pulse Blood pressure 99.2 degrees 72/minute 130/85 Reyes Roy MD 08/21/2022 12:35 PM Signed SPINE SURGERY FOLLOW UP This is an in-person visit. CC: Yovany Ahn SERVICE DATE: 08/21/22 SURGERY DATE: 07/04/2022 Tammy Anna is seen for 6 week post operative follow up s/p C5/6 ACDF. Preop, had arm pain, right thumb cramping, communication coordinator weakness, difficulty with dexterity, dropping things, and tingling in right arm, imbalance. Arm pain resolved Cramping thumb resolved Product Builder improving Dexterity improving Not dropping things as [...] which included preparing to see the patient, [id number] patient care, completing clinical documentation, obtaining and/or reviewing separately obtained history, performing a medically appropriate examination, counseling and educating the patient/family/caregiver , ordering medications, tests, or procedures, and communicating with other HCPs (not separately reported). Reyes Roy MD 08/21/2022 12:34 PM Signed Okay to resume normal activities without restriction. [...] to call with questions. Reyes Roy MD Allergies As of Date: 08/21/2022 Noted Allergy Reaction PENICILLINS 10/05/2018 10 - Anaphylaxis Date Reviewed: 08/21/2022 Reviewed by: John Stevenson - Fully Assessed Reason for Visit: Post Op [174] Primary Visit Diagnosis:Cervical myelopathy (HCC) [G95.9] Order(s):XR CERV GENERAL 2V AP/LAT [0304837] Order #: [id number] FUTURE Prescriptions as of 08/21/2022 - loratadine (CLARITIN) 10 mg tablet Take 10 mg by mouth once daily. - omeprazole (PRILOSEC) 40 mg capsule Take 1 capsule by mouth once daily. Problem List As Of Date 08/21/2022 Noted Resolved Atrial paroxysmal tachycardia (HCC) [I47.1] 12/24/2021 Anxiety attack [F41.0] 12/24/2021 Acute back pain with sciatica, right [M54.41] 04/29/2022 Cervicalgia [M54.2] 04/29/2022 Cervical myelopathy (HCC) [G95.9] 06/02/2022 Cervical stenosis of spine [M48.02] 06/02/2022 Current smoker [F17.200] 06/05/2022 GERD (gastroesophageal reflux disease) [K21.9] 06/05/2022 Class 1 obesity due to excess calories without *06/05/2022 Post-operative state [Z98.890] 07/04/2022 Other instructions from your clinician: Okay to resume normal activities without restriction. [...] to call with questions. Reyes Roy MD Encounter Status:Closed by REYES ROY on 08/21/22 [facility]20[facility] -------- TAMMY ANNA ([id number]) 1985 F Date Time Provider Department 07/22/22 9:30 AM CAROLINA SOLIZ During your visit today, we recorded the following information about you: Carolina Hendricks RN 07/22/2022 10:10 AM Signed Patient is here today for a 2 week postop VV/ incision check. Surgery on 07/04/22, C5/[address] Roy. Patient is recovering well postoperatively. No neurological symptoms or complaints compared to preoperative baseline. Pt states her preop pain is resolving/resolved. BUE symptoms resolving. Product Builder issues resolved. Pt not requiring any pain [...] any questions or concerns. RUBENS Briceno, RN Referring Provider: REYES ROY [[id number]] Allergies As of Date: 07/22/2022 Noted Allergy Reaction PENICILLINS 10/05/2018 10 - Anaphylaxis Date Reviewed: 07/16/2022 Reviewed by: Meeta Davidson PTA - Fully Assessed Primary Visit Diagnosis:Presence of surgical incision [Z78.9] Prescriptions as of 07/22/2022 - loratadine (CLARITIN) 10 mg tablet Take 10 mg by mouth once daily. - omeprazole (PRILOSEC) 40 mg capsule Take 1 capsule by mouth once daily. Problem List As Of Date 07/22/2022 Noted Resolved Atrial paroxysmal tachycardia (HCC) [I47.1] 12/24/2021 Anxiety attack [F41.0] 12/24/2021 Acute back pain with sciatica, right [M54.41] 04/29/2022 Cervicalgia [M54.2] 04/29/2022 Cervical myelopathy (HCC) [G95.9] 06/02/2022 Cervical stenosis of spine [M48.02] 06/02/2022 Current smoker [F17.200] 06/05/2022 GERD (gastroesophageal reflux disease) [K21.9] 06/05/2022 Class 1 obesity due to excess calories without *06/05/2022 Post-operative state [Z98.890] 07/04/2022 Encounter Status:Closed by CAROLINA SOLIZ on 07/22/[address] [facility] ALLIED HEALTHon 07-05-2022 [facility] HNO ID: [id number] Author: RT Selena(R) Service: Radiology Author Type: Technologist Type: Allied Health Filed: 07/05/2022 9:50 AM Note Text: Radiology Service Progress Note PATIENT NAME: Tammy Anna DATE OF SERVICE: July 05, 2022 TIME: 9:49 AM PATIENT IDENTITY VERIFICATION COMPLETED USING TWO (2) IDENTIFIERS: Name and Date of confirmed by patient verbally and Name and Date of confirmed by identification band. FALL SCREENING: Has the patient had 2 falls in the last year or 1 fall with injury or currently using an Ambulatory Assistive Device (Walker, Cane, Wheelchair, Crutches, etc.)? Inpatient: Screened on floor PATIENT GENDER DATA: Female. status: : No status: NO. PATIENT RELEVANT IMPLANT DATA REVIEWED: Not Applicable RADIOLOGY DEPARTMENT: General X-ray: Exam(s) Completed: Spine X-Ray(s): Cervical AP / LAT PERIPHERAL IV DATA: Not applicable SIGNED BY: RT Selena(R) July 05, 2022 9:49 AM Normal [facility] CBC W Auto Differential pane l (Bld)on 07-05-2022 Basophils (Bld) [#/Vol] 10*3/uL Normal <0.11 [facility] Comment on above: Order Comment: Speci men Type: BLOOD SPECIMENOrdering Facility: [facility] Address: [address] [place] [address] Performed By: #### 5 7021-8 ####[facility] LABORATORYCLIA [id number] [place] [address] [place] Basophils/100 WBC (Bld) 0.1 % Normal [facility] Comment on above: Order Comment: Speci men Type: BLOOD SPECIMENOrdering Facility: [facility] Address: [address] [place] [address] Performed By: #### 5 7021-8 ####[facility]ATORY[facility] [id number] [place] [address] [place] Differential cell count method Nom (Bld) Auto Normal [facility] Comment on above: Order Comment: Speci men Type: BLOOD SPECIMENOrdering Facility: [facility] Address: [address] [address] Performed By: #### 5 7021-8 ####[facility]ORATORYCLIA [id number] [place] [address] [place] Eosinophils (Bld) [#/Vol] 10*3/uL Normal <0.46 [facility] Comment on above: Order Comment: Speci men Type: BLOOD SPECIMENOrdering Facility: [facility] Address: [address] [place] [address] Performed By: #### 5 7021-8 ####[facility]ORATORYCLIA [id number] [place] [address] [place] Eosinophils/100 WBC (Bld) 0.1 % Normal [facility] Comment on above: Order Comment: Speci men Type: BLOOD SPECIMENOrdering Facility: [facility] Address: [address] [place] [address] Performed By: #### 5 7021-8 ####[facility]ATORYCLIA [id number] [place] [address] [place] Erythrocyte distribution width (RBC) [Ratio] 13.3 % Normal 11.5-15.0 [facility] Comment on above: Order Comment: Speci men Type: BLOOD SPECIMENOrdering Facility: [facility] Address: [address] [place] [address] Performed By: #### 5 7021-8 ####[facility]ATORYCLIA [id number] [place] [address] [place] Hematocrit (Bld) [Volume fraction] 39.7 % Normal 36.0-46.0 [facility] Comment on above: Order Comment: Speci men Type: BLOOD SPECIMENOrdering Facility: [facility] Address: [address] [place] [address] Performed By: #### 5 7021-8 ####[facility]ORATORYCLIA [id number] [place] [address] [place] Hemoglobin (Bld) [Mass/Vol] 13.8 g/dL Normal 11.5-15.5 [facility] Comment on above: Order Comment: Speci men Type: BLOOD SPECIMENOrdering Facility: [facility] Address: [address] [place] [address] Performed By: #### 5 7021-8 ####[facility]ORATORYCLIA [id number] [place] [address] [place] Immature granulocytes (Bld) [#/Vol] 0.08 10*3/uL Normal <0.10 [facility] Comment on above: Order Comment: Speci men Type: BLOOD SPECIMENOrdering Facility: [facility] Address: [address] [place] [address] Performed By: #### 5 7021-8 ####[facility]ORATORYCLIA [id number] [place] [address] [place] Immature granulocytes/100 WBC (Bld) 0.6 % Normal [facility] Comment on above: Order Comment: Speci men Type: BLOOD SPECIMENOrdering Facility: [facility] Address: [address] [place] [address] Performed By: #### 5 7021-8 ####[facility]ORATORYCLIA [id number] [place] [address] [place] Lymphocytes (Bld) [#/Vol] 2.24 10*3/uL Normal 1.00-4.00 [facility] Comment on above: Order Comment: Speci men Type: BLOOD SPECIMENOrdering Facility: [facility] Address: [address] [place] [address] Performed By: #### 5 7021-8 ####[facility]ORATORYCLIA [id number] [place] [address] [place] Lymphocytes/100 WBC (Bld) 16.8 % Normal [facility] Comment on above: Order Comment: Speci men Type: BLOOD SPECIMENOrdering Facility: [facility] Address: [address] [place] [address] Performed By: #### 5 7021-8 ####[facility]ORATORYCLIA [id number] [place] [address] [place] MCH (RBC) [Entitic mass] 31.7 pg Normal 26.0-34.0 [facility] Comment on above: Order Comment: Speci men Type: BLOOD SPECIMENOrdering Facility: [facility] Address: [address] [place] [address] Performed By: #### 5 7021-8 ####[facility]ORATORYCLIA [id number] [address] [place] MCHC (RBC) [Mass/Vol] 34.8 g/dL Normal 30.5-36.0 [facility] Comment on above: Order Comment: Speci men Type: BLOOD SPECIMENOrdering Facility: [facility] Address: [address] [place] [address] Performed By: #### 5 7021-8 ####[facility]ORATORYCLIA [id number] [place] [address] [place] MCV (RBC) [Entitic vol] 91.1 fL Normal 80.0-100.0 [facility] Comment on above: Order Comment: Speci men Type: BLOOD SPECIMENOrdering Facility: [facility] Address: [address] [place] [address] Performed By: #### 5 7021-8 ####[facility]ORATORYCLIA [id number] [place] [address] [place] Monocytes (Bld) [#/Vol] 1.06 10*3/uL High <0.87 [facility] Comment on above: Order Comment: Speci men Type: BLOOD SPECIMENOrdering Facility: [facility] Address: [address] [address] Performed By: #### 5 7021-8 ####[facility]ATORYCLIA [id number] [place] [address] [place] Monocytes/100 WBC (Bld) 8.0 % Normal [facility] Comment on above: Order Comment: Speci men Type: BLOOD SPECIMENOrdering Facility: [facility] Address: [address] [address] Performed By: #### 5 7021-8 ####[facility]ATORYCLIA [id number] [place] [address] [place] Neutrophils (Bld) [#/Vol] 9.92 10*3/uL High 1.45-7.50 [facility] Comment on above: Order Comment: Speci men Type: BLOOD SPECIMENOrdering Facility: [facility] Address: [address] [place] [address] Performed By: #### 5 7021-8 ####[facility]ATORYCLIA [id number] [address] [place] Neutrophils/100 WBC (Bld) 74.4 % Normal [facility] Comment on above: Order Comment: Speci men Type: BLOOD SPECIMENOrdering Facility: [facility] Address: [address] [place] [address] Performed By: #### 5 7021-8 ####[facility]ATORYCLIA [id number] [place] [address] [place] Nucleated RBC (Bld) [#/Vol] 10*3/uL Normal <0.01 [facility] Comment on above: Order Comment: Speci men Type: BLOOD SPECIMENOrdering Facility: [facility] Address: [address] [place] [address] Performed By: #### 5 7021-8 ####[facility]ORYCLIA [id number] [place] [address] [place] Nucleated RBC/100 WBC (Bld) [Ratio] 0.0 /100 WBC Normal [facility] Comment on above: Order Comment: Speci men Type: BLOOD SPECIMENOrdering Facility: [facility] Address: [address] [place] [address] Performed By: #### 5 7021-8 ####[facility]ATORYCLIA [id number] [place] [address] [place] Platelet mean volume (Bld) [Entitic vol] 9.8 fL Normal 9.0-12.7 [facility] Comment on above: Order Comment: Speci men Type: BLOOD SPECIMENOrdering Facility: [facility] Address: [address] [place] [address] Performed By: #### 5 7021-8 ####[facility]ORATORYCLIA [id number] [place] [address] [place] Platelets (Bld) [#/Vol] 126 10*3/uL Low 150-400 [facility] Comment on above: Order Comment: Speci men Type: BLOOD SPECIMENOrdering Facility: [facility] Address: [address] [place] [address] Performed By: #### 5 7021-8 ####[facility] LABORATORYCLIA [id number] [place] [address] [place] RBC (Bld) [#/Vol] 4.36 10*6/uL Normal 3.90-5.20 [facility] Comment on above: Order Comment: Speci men Type: BLOOD SPECIMENOrdering Facility: [facility] Address: [address] [place] [address] Performed By: #### 5 7021-8 ####[facility]ORATORYCLIA [id number] [place] [address] [place] WBC (Bld) [#/Vol] 13.32 10*3/uL High 3.70-11.00 [facility] Comment on above: Order Comment: Speci men Type: BLOOD SPECIMENOrdering Facility: [facility] Address: [address] [address] Performed By: #### 5 7021-8 ####[facility]ATORYCLIA [id number] [place] [address] [place] Comprehensive metabolic 2000 panelon 07-05-2022 Albumin [Mass/Vol] 3.7 g/dL Low 3.9-4.9 [facility] Comment on above: Order Comment: Speci men Type: BLOOD SPECIMEN [facility] Address: [address] [address] Performed By: #### 2 4323-8 #### [facility] CLIA [id number] [address] [place] [address] [place] ALP [Catalytic activity/Vol] 68 U/L Normal 34-123 [facility] Comment on above: Order Comment: Speci men Type: BLOOD SPECIMEN [facility] Address: [address] [place] [address] Performed By: #### 2 4323-8 #### [facility] CLIA [id number] [address] [place] [address] [place] ALT [Catalytic activity/Vol] 13 U/L Normal 7-38 [facility] Comment on above: Order Comment: Speci men Type: BLOOD SPECIMEN [facility] Address: [address] [address] Performed By: #### 2 4323-8 #### [facility] CLIA [id number] [address] [place] [address] [place] Anion gap [Moles/Vol] 8 mmol/L Low 9-18 [facility] Comment on above: Order Comment: Speci men Type: BLOOD SPECIMEN [facility] Address: [address] [address] Performed By: #### 2 4323-8 #### [facility] CLIA [id number] [address] [place] [address] [place] AST [Catalytic activity/Vol] 16 U/L Normal 13-35 [facility] Comment on above: Order Comment: Speci men Type: BLOOD SPECIMEN [facility] Address: [address] [address] Performed By: #### 2 4323-8 #### [facility] CLIA [id number] [address] [place] [address] [place] Bilirubin [Mass/Vol] 0.3 mg/dL Normal 0.2-1.3 [facility] Comment on above: Order Comment: Speci men Type: BLOOD SPECIMEN [facility] Address: [address] [address] Performed By: #### 2 4323-8 #### [facility] CLIA [id number] [address] [place] [address] [place] Calcium [Mass/Vol] 8.7 mg/dL Normal 8.5-10.2 [facility] Comment on above: Order Comment: Speci men Type: BLOOD SPECIMEN [facility] Address: [address] [address] Performed By: #### 2 4323-8 #### [facility] CLIA [id number] [address] [place] [address] [place] Chloride [Moles/Vol] 109 mmol/L High 97-105 [facility] Comment on above: Order Comment: Speci men Type: BLOOD SPECIMEN [facility] Address: [address] [address] Performed By: #### 2 4323-8 #### [facility] CLIA [id number] [address] [place] [address] [place] CO2 [Moles/Vol] 22 mmol/L Normal 22-30 [facility] Comment on above: Order Comment: Speci men Type: BLOOD SPECIMEN [facility] Address: [address] [place], [place] [id number] Performed By: #### 2 4323-8 #### [facility] CLIA [id number] [address] [place] [address] [place] Creatinine [Mass/Vol] 0.64 mg/dL Normal 0.58-0.96 [facility] Comment on above: Order Comment: Patricia rosas Type: BLOOD SPECIMEN [facility] Address: [address] [address] Performed By: #### 2 4323-8 #### [facility] CLIA [id number] [address] [place] [address] [place] ESTIMATED GLOMERULAR FILTRATION RATE 116 mL/min/1.73m??? Normal >=60 [facility] Comment on above: Order Comment: Patricia rosas Type: BLOOD SPECIMEN [facility] Address: [address] [address] Result Comment: [facility] Glomerular Filtration Rate (eGFR) is calculated using the 2020 CKD-EPI creatinine equation. This equation utilizes serum creatinine, sex, and age as parameters. The creatinine assay has traceable calibration to isotope dilution-mass spectrometry. Refer to KDIGO guidelines for clinical interpretation. In patients with unstable renal function, e.g. those with acute kidney injury, the eGFR may not accurately reflect actual GFR. Performed By: #### 2 4323-8 #### [facility] CLIA [id number] [address] [place] [address] [place] Glucose [Mass/Vol] 114 mg/dL High 74-99 [facility] Comment on above: Order Comment: Patricia rosas Type: BLOOD SPECIMEN [facility] Address: [address] [address] Result Comment: The [place] Diabetes Association (ADA) provides guidance for cutoff values for fasting glucose and random glucose. The ADA defines fasting as no caloric intake for at least 8 hours. Fasting plasma glucose results between 100 to 125 mg/dL indicate increased risk for diabetes (prediabetes). Fasting plasma glucose results greater than or equal to 126 mg/dL meet the criteria for diagnosis of diabetes. In the absence of unequivocal hyperglycemia, results should be confirmed by repeat testing. In a patient with classic symptoms of hyperglycemia or hyperglycemic crisis, random plasma glucose results greater than or equal to 200 mg/dL meet the criteria for diagnosis of diabetes. Reference: Standards of Medical Care in Diabetes 2016, [place] [employer]. Diabetes Care. 2016.39(Suppl 1). Performed By: #### 2 4323-8 #### [facility] CLIA [id number] [address] [place] [address] [place] Potassium [Moles/Vol] 4.2 mmol/L Normal 3.7-5.1 [facility] Comment on above: Order Comment: Speci men Type: BLOOD SPECIMEN [facility] Address: [address] [place] [address] Performed By: #### 2 4323-8 #### [facility] CLIA [id number] [address] [place] [address] [place] Protein [Mass/Vol] 6.0 g/dL Low 6.3-8.0 [facility] Comment on above: Order Comment: Speci men Type: BLOOD SPECIMEN [facility] Address: [address] [place] [address] Performed By: #### 2 4323-8 #### [facility] CLIA [id number] [address] [place] [address] [place] Sodium [Moles/Vol] 139 mmol/L Normal 136-144 [facility] Comment on above: Order Comment: Speci men Type: BLOOD SPECIMEN [facility] Address: [address] [place] [address] Performed By: #### 2 4323-8 #### [facility] CLIA [id number] [address] [place] [address] [place] Urea nitrogen [Mass/Vol] 10 mg/dL Normal 7-21 [facility] Comment on above: Order Comment: Speci men Type: BLOOD SPECIMEN [facility] Address: [address] [place] [address] Performed By: #### 2 4323-8 #### [facility] CLIA [id number] [address] [place] [address] [place] NURSING PROGon 07-05-2022 NURSING PROG HNO ID: [id number] Author: Riddhi Siu RN Service: ? Author Type: Registered Nurse Type: Nursing Progress Note Filed: 07/05/2022 4:14 PM Note Text: Other: Daily Note 0730: Nurse to nurse handoff received 0900: Patient assessment completed 1200: Patient assessment completed [facility] NURSING PROG HNO ID: [id number] Author: Renato Rubin RN Service: ? Author Type: Registered Nurse Type: Nursing Progress Note Filed: 07/04/2022 10:50 PM Note Text: 1900 Assumed care of patient. Alert and oriented x3. Denies any chest pain, SOB, or nausea. Anterior neck incision clean and intact, no drainage noted. Denies any N/T to extremities. Resting in bed without signs of distress. Bed alarm on, call light in reach. [facility] THERAPY NTon 07-05-2022 THERAPY NT HNO ID: [id number] Author: Farhat Wasserman, PT Service: Physical Therapy Author Type: Physical Therapist Type: Therapy (PT/OT/Speech/Resp) Filed: 07/05/2022 12:09 PM Note Text: Physical Therapy Treatment SERVICE DATE: 07/05/2022 SERVICE TIME: 1145 to 1200 ROOM: [place] [address] Recommended Discharge Disposition: Home Recommended Discharge Disposition Comments: recommend Patient to home if medically cleared and all PT goals are met Anticipated Discharge Needs: Other: See Comment (PRN assist at home from family) Physical Assist at Home for: Cleaning, Laundry, Meals, Stairs, Shopping, Transportation Recommended Discharge Equipment: Wheeled Walker, Other: See Comment (Patient may need a WW for home use) PT 6 Clicks Score: 24 Precautions/Activity Restrictions: Bed/Chair Alarm, Spine, Fall Risk Precaution/Activity Restriction Comments: no collar needed, per MD notes Current Hospital Course: Patient is 36y/o female adm for elective c-spine sx; now s/p C5-6 ACDF on 07/04 Reason for Hospital Admission: Patient admitted on 07/04 for elective C5-C6 ACDF with Dr. Roy. Relevant Past Medical History: Cervicalgia, GERD, obesity, Anxiety, current smoker Response to Therapy Interventions: Good Participation in Activities Assessment Comments: good function, no safety deficits except patient turns her head frequently Continued Skilled Needs Due to: Functional Mobility/Skill Impairments Physical Therapy Problem List: Education Deficit, Decreased Activity Tolerance, Functional Mobility Impairment, Pain Treatment Interventions: Education, Self Care / Home Management Plan for Next Visit: Bed Mobility, Chair Transfer Training, Fall Prevention, Gait Training, Sit to Stand Transfers, Standing Balance, Standing Tolerance, Walker Training, Stair Training Home Environment Patient Lives With: Family (home with and 2 children (14 + 11 y/o)) Assistance Available: PRN Entry To Home: Stairs, With Rail Number Of Stairs Into Home: 3 (1+2) Number Of Stairs To Bed/Bath: 14 (very steep steps) Stairs to Bed/Bath with: Unilateral Rail Tub/Shower Type: Tub shower combo Laundry: family to perform Equipment Owned: Other: See Comment (No AD/DME reported) Prior Functional Level: Within Functional Limits, Required Assistance Assistance Required With: Transportation Prior Functional Level Comments: Patient reports previously fully IND with ADLs/IADLs; assist with transportation needs (does not have a license); ambulating IND without AD at baseline. Baseline Cognition: Oriented to place, Oriented to self, Oriented to time, Oriented to situation CURRENT FUNCTIONAL STATUS: Most recent performance Current Functional Mobility Assist Level Additional Information Rolling (found sleeping on RIGHT side (sig. other also in bed)) From AM session Supine to Sit Supervision From AM session Sit to Supine (assisted to transporter w/c post session) Scooting Sit to Stand Supervision From AM session Stand to Sit Supervision Bed to Chair Supervision Bed To Chair Transfer Type: (deferred/Patient to go to XR) From AM session Toilet/Commode Gait Supervision Gait Device: Wheeled Walker Gait Distance (feet): 100ft+ (ambulating in the hallway with sig. other) From AM session Stairs Supervision Stairs Device: Rail Number of Stairs: 10 From AM session Curb Step Car Transfer Supervision Blank crook indicate activity not attempted - received message that Patient is being discharge. Obtained order to issue WW for Patient. - Patient was instructed in fit, use, and care of WW for home going, and Patient signed for the WW. - she was observed up in the room, using WW, and in the hallways, under supervision of her sig.other. NO LOB observed. - continued recommendation for home going if medically cleared. JH-HLM: 7: Walk 25 feet or more Learning/Educational Needs: Discharge Plan, Functional Activities/Mobility, Precautions, Safety Goals for Plan of Care: Patient/Caregiver Goals: Go Home Goals: Patient will demonstrate progress with functional mobility to allow safe discharge to home with available support and/or physical assistance. Able to Perform HEP with: Set Up Rolling with: Independent Transfer Supine to/from Sit with: Independent Transfer Sit to/from Stand with: Independent Ambulate with: Independent Distance: 300ft x 3 Device: Wheeled Walker Ambulate Up and Down Steps with: Independent Number of Steps: flight Device: Rail Car Transfer with: Independent Transfer: IND transfers by discharge from hospital Progress Toward Goals: Progressing as expected Rehab Potential: Good Patient will be discontinued from Physical Therapy when no further skilled needs are identified in this setting. PLAN: PT Frequency: Once daily (discharge from PT once all goals are met) Plan of Care developed with: Patient, Other: See Comment (sig. other in room/with Patient) TREATMENT INTERVENTIONS: (more content not included)... [facility] THERAPY NT HNO ID: [id number] Author: Farhat Wasserman PT Service: Physical Therapy Author Type: Physical Therapist Type: Therapy (PT/OT/Speech/Resp) Filed: 07/05/2022 11:01 AM Note Text: Physical Therapy Evaluation In efforts to expedite discharge for critical bed status Patient was seen as a co-eval by two skilled therapists to address functional mobility progression, functional task modification, and activity modification for patient and therapist safety in order to maximize benefits of service to the patient. SERVICE DATE: 07/05/2022 SERVICE TIME: to 09 ROOM: [facility]464-2 Recommended Discharge Disposition: Home Recommended Discharge Disposition Comments: recommend Patient to home if medically cleared and all PT goals are met Anticipated Discharge Needs: Other: See Comment (PRN assist at home from family) Physical Assist at Home for: Cleaning, Laundry, Meals, Stairs, Shopping, Transportation Recommended Discharge Equipment: Wheeled Walker, Other: See Comment (Patient may need a WW for home use) PT 6 Clicks Score: 24 Precautions/Activity Restrictions: Bed/Chair Alarm, Spine, Fall Risk Precaution/Activity Restriction Comments: no collar needed, per MD notes Current Hospital Course: Patient is 36y/o female adm for elective c-spine sx; now s/p C5-6 ACDF on 07/04 Reason for Hospital Admission: Patient admitted on 07/04 for elective C5-C6 ACDF with Dr. Roy. Relevant Past Medical History: Cervicalgia, GERD, obesity, Anxiety, current smoker Response to Therapy Interventions: Good Participation in Activities Assessment Comments: good function, no safety deficits except patient turns her head frequently Continued Skilled Needs Due to: Functional Mobility/Skill Impairments Physical Therapy Problem List: Education Deficit, Decreased Activity Tolerance, Functional Mobility Impairment, Pain Treatment Interventions: Education, Functional Mobility Training Plan for Next Visit: Bed Mobility, Chair Transfer Training, Fall Prevention, Gait Training, Sit to Stand Transfers, Standing Balance, Standing Tolerance, Walker Training, Stair Training Home Environment Patient Lives With: Family (home with and 2 children (14 + 11 y/o)) Assistance Available: PRN Entry To Home: Stairs, With Rail Number Of Stairs Into Home: 3 (1+2) Number Of Stairs To Bed/Bath: 14 (very steep steps) Stairs to Bed/Bath with: Unilateral Rail Tub/Shower Type: Tub shower combo Laundry: family to perform Equipment Owned: Other: See Comment (No AD/DME reported) Prior Functional Level: Within Functional Limits, Required Assistance Assistance Required With: Transportation Prior Functional Level Comments: Patient reports previously fully IND with ADLs/IADLs; assist with transportation needs (does not have a license); ambulating IND without AD at baseline. Baseline Cognition: Oriented to place, Oriented to self, Oriented to time, Oriented to situation CURRENT FUNCTIONAL STATUS: Most recent performance Current Functional Mobility Assist Level Additional Information Rolling (found sleeping on RIGHT side (sig. other also in bed)) Supine to Sit Supervision Sit to Supine (assisted to transporter w/c post session) Scooting Sit to Stand Supervision Stand to Sit Supervision Bed to Chair Supervision Bed To Chair Transfer Type: (deferred/Patient to go to XR) Toilet/Commode Gait Supervision Gait Device: Wheeled Walker Gait Distance (feet): 150ft x 2; 25ft x 1 Stairs Supervision Stairs Device: Rail Number of Stairs: 10 Curb Step Car Transfer Supervision Blank crook indicate activity not attempted - Patient is pleasant, agreed to mobilize with therapy. She was advised of neck precautions, and required verbal cues to avoid turning her head. Recommended to nursing that Patient have a soft collar to remind her of this. Also gold sig. Other in the room of neck precautions. - at SUP x 1 level, Patient was able to sit up to EOB, stand with use of WW, and ambulate to the PT gym and back at 150ft x 2. Patient reports some slight weakness to the LEFT side, but no buckling or LOB observed. - she was further able to go up/down a total of 10 steps with rails using step to step technique at SUP x 1; verbal cues for sequence of steps. - she was able to get in/out of car simulator at SUP x 1. - discussed home going concerns with Patient and sig. Other in room, and answered their questions to their satisfaction. - nursing aware that Patient is going off floor for XR. - recommend Patient to home if medically cleared and all PT goals are met; she may need a WW for home use. Patient instructed in safe and effective technique for gait training, including balance, posture, use of assistive device, and activity tolerance. -M: 7: Walk 25 feet or more Learning/Educational Needs: Discharge Plan, Functional Activities/Mobility, Precautions, Safety Goals for Plan of Care: Patient/Caregiver Goals: Go Home Goa (more content not included)... [facility] THERAPY NT HNO ID: [id number] Author: Master Mcneill OTR/L Service: Occupational Therapy Author Type: Occupational Therapist Type: Therapy (PT/OT/Speech/Resp) Filed: 07/05/2022 10:45 AM Note Text: Occupational Therapy Evaluation SERVICE DATE: 07/05/2022 SERVICE TIME: 909 to 939 ROOM: [place] [address] Recommended Discharge Disposition: Home OT Recommended Discharge Disposition Comments: Recommend patient return home with family support and Home OT services to further address safety awareness, balance, activity tolerance, ADL/IADL, and functional mboility needs. Anticipated Discharge Needs: Physical Assist at Home Physical Assist at Home for: Cleaning, Laundry, Meals, Stairs, Shopping, Transportation Recommended Discharge Equipment: To Be Determined OT 6 Clicks Score: 21 Precautions/Activity Restrictions: Bed/Chair Alarm, Spine, Fall Risk Precaution/Activity Restriction Comments: no collar needed, per MD notes Reason for Hospital Admission: Patient admitted on 07/04 for elective C5-C6 ACDF with Dr. Roy. Relevant Past Medical History: Cervicalgia, GERD, obesity, Anxiety, current smoker Response to Therapy Interventions: Good Participation in Activities, Improved Ability to [place], Improved Psychosocial Skills, Improved Tolerance for Activity, Pain Continued Skilled Needs Due to: Functional Impairment Occupational Therapy Problem List: Pain, Edema, Safety Deficits, Impaired Self Care, Decreased Activity Tolerance, Functional Mobility Impairment, Balance Impaired Cognition/Communication Deficits Responsiveness: Alert, Awake Follows Commands: 3-step Commands Psychosocial Deficit: h/x anxiety Treatment Interventions: Education, Self Care/Home Management, Energy Conservation Training, Joint Mobility, Strengthening, Functional Mobility Training, Balance Training, Pain Management Plan for Next Visit: Bathing Training, Bed Mobility, Chair/Commode Transfer Training, Cognition Intervention, Coping, Dressing Training, Energy Conservation, Exercise Instruction/Handout, Fall Prevention, Grooming Training, Health Management of Chronic Conditions, IADLs/Home Management, Pain Management, Positioning Training, Shower/Tub Transfer Training, Sit to Stand Transfers, Sitting Balance, Sitting Tolerance, Standing Balance, Standing Tolerance Home Environment Patient Lives With: Family (home with and 2 children (14 + 11 y/o)) Assistance Available: PRN Entry To Home: Stairs, With Rail Number Of Stairs Into Home: 3 (1+2) Number Of Stairs To Bed/Bath: 14 (very steep steps) Stairs to Bed/Bath with: Unilateral Rail Tub/Shower Type: Tub shower combo Laundry: family to perform Equipment Owned: Other: See Comment (No AD/DME reported) Prior Functional Level: Within Functional Limits, Required Assistance Assistance Required With: Transportation Prior Functional Level Comments: Patient reports previously fully IND with ADLs/IADLs; assist with transportation needs (does not have a license); ambulating IND without AD at baseline. 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 CURRENT FUNCTIONAL STATUS: Most recent performance Current Activities of Daily Living Assist Level Additional Information Feeding Independent Grooming Set Up Bathing Upper Body Supervision Bathing Lower Body Minimal Assistance Dressing Upper Body Supervision Don gown from EOB sit Dressing Lower Body Minimal Assistance Doff/don bilateral socks from EOB sit, utilizing figure 4 technique Toileting Contact Guard Assistance Instrumental Activities of Daily Living Assist Level Additional Information Meal/Beverage Prep Cleaning Laundry Medication Management with Strategies Functional Mobility Assist Level Additional Information Rolling Supervision Supine to Sit Supervision Utilizing log roll as able Sit to Supine Scooting Supervision Sit to Stand Supervision Stand to Sit Supervision Bed to Chair Supervision Stepping Wheeled Walker Toilet/Commode Shower Functional Mobility Supervision Wheeled Walker; patient performed functional mobility tasks, within simulated home environment, utilizing FWW. Patient verbalizing and demonstrating FAIR - carryover for all post-op precautions on this date. Cues/assist for safe hand placement, safe pacing, maintenance of upright posture/balance, and safe navigation of FWW within environment. Blank crook indicate activity not attempted Car Transfer: Supervision Balance: Static Sitting, Dynamic Sitting, Static St (more content not included)... [facility] XR CERVICAL 2V AP/LATon 06-23 XR CERVICAL 2V AP/LAT * * *Final Report* * * DATE OF EXAM: Jul 05 2022 9:49AM HCX [id number] - XR CERVICAL 2V AP/LAT / PROCEDURE REASON: Spinal fusion, cervical, follow up * * * * Physician Interpretation * * * * RESULT: Accession number: [id number] COMPARISON: INDICATION: Spinal fusion, cervical, follow up EXAMINATION: XR CERVICAL 2V AP/LAT RESULT: See Impression IMPRESSION: AP and lateral views of the cervical spine are obtained. The patient is status post ACDF on 07/04/2022. Anterior fixation device is present at C5-6 level. Metallic plate and nails are intact. Alignment of the cervical spine is normal. Lower portion of C6 and the C7 vertebra is suboptimally seen on the lateral view due to overlapping soft tissues. No acute fracture or dislocation is seen. Facet joints are well aligned. Mild soft tissue emphysema likely related to recent surgery. Transcribed Using Voice Recognition Transcribe Date/Time: Jul 06 2022 6:01P Dictated by: FRANCIS TELLES MD This examination was interpreted and the report reviewed and electronically signed by: FRANCIS TELLES MD on Jul 06 2022 6:04PM EST [id number] [facility] ALLIED HEALTHon 07-04-2022 ALLIED HEALTH HNO ID: [id number] Author: Chaplain Elidia Service: Spiritual Care Author Type: Oil Lease Buyer Type: Allied Health Filed: 07/04/2022 2:04 PM Note Text: SPIRITUAL CARE PROGRESS NOTE SERVICE DATE: 07/04/2022 SERVICE TIME: 1:55 pm Attempted patient visit; patient resting. Will follow up as circumstances allow. To contact the Spiritual Care Department: Please call [phone]. SIGNATURE: Chaplain Elidia PATIENT NAME: Tammy Anna DATE: July 04, 2022 TIME: 2:03 PM PAGER/CONTACT #: [phone] [facility] ANES POSTPROC EVALon 023 ANES POSTPROC EVAL HNO ID: [id number] Author: Espinoza Chacon MD Service: Anesthesiology Author Type: Anesthesiologist Type: Anesthesia Postprocedure Evaluation Filed: 07/04/2022 10:05 AM Note Text: POST ANESTHESIA EVALUATION NOTE : 1985 Procedure Summary Date: 07/04/22 Room / Location: ORA / OR Anesthesia Start: 733 Anesthesia Stop: 957 Procedures: ARTHRODESIS ANT DISC PREP DISCECTOMY OSTEOPHYTECTOMY DECOMPRES S CORD/NERVE ROOT C' BELOW C2 (Spine Cervical) INSERT SPINE FIXATION DEVICE ADDITIONAL PROCEDURE, 2-3 VERTEBRAL SEGMENTS (Spine) MICROSURGICAL TECHNIQUE FOR SPINAL PROCEDURES (Spine Cervical) Diagnosis: Cervical myelopathy (HCC) (Cervical myelopathy (HCC) [G95.9]) Surgeons: Reyes Roy MD Responsible Provider: Espinoza Chacon MD Anesthesia Type: general ASA Status: 3 Anesthesia Type: general Airway Type: ETT Last Vitals Vitals Value Taken Time BP 111/62 07/04/22 1000 Temp 36.6 ?C (97.9 ?F) 07/04/22 0952 Pulse 79 07/04/22 1003 Resp 16 07/04/22 1003 SpO2 94 % 07/04/22 1003 Vitals shown include unvalidated device data. [facility] AN POST OP NOTE Anesthesia Observations No Documentation SIGNATURE: Espinoza Chacon MD PATIENT NAME: Tammy Anna DATE: July 04, 2022 TIME: 10:04 AM CSN: [id number] [facility] ANES PRE-OPon 07-04-2022 ANES PRE-OP HNO ID: [id number] Author: Espinoza Chacon MD Service: Anesthesiology Author Type: Anesthesiologist Type: Anesthesia Preprocedure Evaluation Filed: 07/04/2022 7:21 AM Note Text: ANESTHESIOLOGY DAY OF SURGERY NOTE : 1985 Procedure Information Date/Time: 07/04/22 0730 Procedures: ARTHRODESIS ANT DISC PREP DISCECTOMY OSTEOPHYTECTOMY DECOMPRES S CORD/NERVE ROOT C' BELOW C2 (Spine Cervical) INSERT SPINE FIXATION DEVICE ADDITIONAL PROCEDURE, 2-3 VERTEBRAL SEGMENTS (Spine) MICROSURGICAL TECHNIQUE FOR SPINAL PROCEDURES (Spine Cervical) Location: OR06A / OR Surgeons: Reyes Roy MD Estimated body mass index is 30.9 kg/m? as calculated from the following: Height as of 06/04/22: 175.3 cm (5' 9). Weight as of this encounter: 94.9 kg (209 lb 3.5 oz). Most recent hematocrit and potassium results: Hematocrit 39.8 06/04/2022 Potassium 3.9 06/04/2022 Relevant Problems CARDIO (+) Atrial paroxysmal tachycardia (HCC) GI (+) GERD (gastroesophageal reflux disease) I - PHYSICAL EVALUATION AIRWAY Patient intubated: No. Tracheostomy tube not present Mallampati: II. TM distance: >3 FB. Neck ROM: limited flexion and extension. Mouth opening: adequate. Short neck: no. Thick neck: no [place]field present: no Microretrognathia/Micron agthia/Recessed Chin: No DENTAL Dental findings: teeth intact. Additional exam findings: no II - ANESTHESIA PLAN ASA Score: 3 Anesthetic Plan: general Airway type: ETT The patient is a current smoker. NPO Status: adequate Beta Pierce Administration of chronic beta pierce medication planned. Monitoring Plan Monitoring plan: standard ASA and invasive hemodynamic monitoring. Monitoring method: arterial Line Post Procedure Analgesic Plan Postoperative analgesic plan: multimodal analgesia and per surgical service. Informed Consent Anesthetic risks, benefits, alternatives, personnel and consent discussed: yes. Patient / Responsible Green Party agrees to proceed: yes Patient / Surrogate agrees to blood products: Yes DNR status not reviewed with patient and/or family prior to surgery. Significant changes in the patient condition since the History and Physical, not otherwise documented in primary service progress note: no. Potential Anesthesia issues that may suggest increased risk of complications or contraindication to planned procedure: none. Discussed the possibility of lip / dental damage: yes Vitals Value Taken Time BP 135/89 07/04/2249 Pulse 70 07/04/2249 Resp 14 07/04/2249 Temp 36.7 ?C (98.1 ?F) 07/04/2249 SpO2 96 % 07/04/22648 Facility-Administered Medications as of 07/04/2022 Medication Dose Route Frequency - [COMPLETED] acetaminophen 1,000 mg tab(s) (TYLENOL) 1,000 mg ORAL ONCE - [COMPLETED] promethazine 12.5 mg tab(s) (PHENERGAN) 12.5 mg ORAL NOW - NaCl 0.9% iv flush bag 20 mL INTRAVENOUS PRN - vancomycin 1.5 g in NaCl 0.9% 250 mL (VANCOCIN) 1.5 g INTRAVENOUS Getterer to OR Outpatient Medications as of 07/04/2022 Medication Sig - gabapentin (NEURONTIN) 300 mg capsule Take 1 capsule by mouth three times daily for 30 days. - loratadine (CLARITIN) 10 mg tablet Take 10 mg by mouth once daily. - omeprazole (PRILOSEC) 40 mg capsule Take 1 capsule by mouth once daily. I have interviewed and examined the patient. I have reviewed the medical record and/or the pre-anesthesia evaluation, pertinent labs, and test results. This contains updated information obtained within 48 hours of Surgery/Procedure. SIGNATURE: Espinoza Chacon MD PATIENT NAME: Tammy Anna DATE: July 04, 2022 TIME: 7:21 AM CSN: [id number] [facility] BRIEF OP NOTon 07-04-2022 BRIEF OP NOT HNO ID: [id number] Author: Reyes Roy MD Service: Neurosurgery Author Type: Physician Type: Brief Op Note Filed: 07/04/2022 9:40 AM Note Text: BRIEF OPERATIVE / PROCEDURE NOTE LOG ID: [id number] SURGERY/PROCEDURE DATE: 07/04/2022 INCISION/PROCEDURE START TIME: 8:12 AM INCISION CLOSE/PROCEDURE END TIME: 9:38 AM SURGEON(S)/PROCEDURALIST (S) AND AIRPORT UTILITY WORKER(S): Surgeon(s) and Role: * Reyes Roy MD - Primary * Jairo Sadler MD - Resident - Assisting No Additional Staff SURGERY/PROCEDURE(S): 1. C5/6 ACDF with plating 2. Use of interbody structural autograft ANESTHESIA: General FINDINGS: adequate decompression/hardware ESTIMATED BLOOD LOSS: 20 mls SPECIMENS: None COMPLICATIONS: None CLOSURE TECHNIQUE: Primary PRE-OP/PRE-PROCEDURE DIAGNOSIS: cervical myelopathy POST-OP/POST-PROCEDURE DIAGNOSIS: Same as Preop SIGNATURE: Reyes Roy MD PATIENT NAME: Tammy Anna DATE: July 04, 2022 TIME: 9:39 AM [facility] CASE MGT INIT [facility] [address] [facility] [place] HNO ID: [id number] Author: Parisa Wang RN Service: ? Author Type: Registered Nurse Type: Care Mgt Initial Assessment Filed: 07/04/2022 1:30 PM Note Text: CARE MANAGEMENT: ASSESSMENT AND DISCHARGE PLAN SERVICE DATE: July 04, 2022 SERVICE TIME: 1:24 PM PCP: Tonya Arriaga CNP Primary Contact: Extended Emergency Contact Information Primary Emergency Contact: Fabiola Anna Address: [address] [place] [address] Mobile Relation: Spouse Admission Status: Inpatient Insurance Provider: [employer] Discharge Planning requested by: Attending Provider Potential Transition Plans Home Advance Directives Current Advance Directive: None Cellar Pumper Attempted to Assist with AD Completion: Yes Action: Education Provided Current Living Arrangements and Support Lives with: Spouse/significant other Type of Residence: Private Residence (House) Does the patient have to climb stairs at home?: Yes;stairs outside the home;stairs within the home Support: Spouse/significant other How do you manage to accomplish the following: Independent: Ambulation;Bathe/Shower; Dress;Meals/Meal Prep;Going to the bathroom;Medication Management;Transportatio n to appointments/community Current Services/Equipment Current Post-Acute Service(s): None Discharge Planning Patient Goal(s): General wellness, Be able to go home [place] Explained: Are you interested in bedside delivery of your medications? No Discharge Planning Participant(s): Spouse/significant other Patient/Family Comments: pt's spouse Fabiola Caregiver Assessment: Caregiver is ready, willing and able to meet the patient's needs as recommended by the inter-professional team: No Caregiver needed Transport at Discharge: Transportation Arrangements: Car Needs Prior to Discharge: Needs Prior to Discharge: OT/PT Evaluation Post-Acute Discharge Plan: S/p spinal surgery today w/ NSGY. PT/OT ordered. DC plan: anticipate home no needs vs HH. CM to follow. SIGNATURE: Parisa Wang RN PATIENT NAME: Tammy Anna DATE: July 04, 2022 TIME: 1:23 PM CONTACT #: [phone] Normal [facility] CREATININE [facility] 07-04-2022 Creatinine [Mass/Vol] 0.56 mg/dL Low 0.58-0.96 [employer] Comment on above: Order Comment: Speci ralph Type: BLOOD SPECIMENOrdering Facility: [facility] Address: [address] [place] [address] Performed By: #### C RET1 ####[facility] LABORATORYCLIA [id number] [place] [address] [place] ESTIMATED GLOMERULAR FILTRATION RATE 120 mL/min/1.73m??? Normal >=60 [facility] Comment on above: Order Comment: Speccindy rosas Type: BLOOD SPECIMENOrdering Facility: [facility] Address: [address] [place] [address] Result Comment: Kathy mated Glomerular Filtration Rate (eGFR) is calculated using the 2020 CKD-EPI creatinine equation. This equation utilizes serum creatinine, sex, and age as parameters. The creatinine assay has traceable calibration to isotope dilution-mass spectrometry. Refer to KDIGO guidelines for clinical interpretation. In patients with unstable renal function, e.g. those with acute kidney injury, the eGFR may not accurately reflect actual GFR. Performed By: #### C RET1 ####[facility] LABORATORYCLIA [id number] [place] [address] [place] HISTORY PHYSICALon 3 HISTORY PHYSICAL HNO ID: [id number] Author: Valdemar Fajardo MD Service: General Internal Medicine Author Type: Physician Type: HANDP Filed: 07/04/2022 6:22 PM Note Text: CONSULT INITIAL - INTERNAL MEDICINE PATIENT NAME: Tammy Anna SERVICE DATE: July 04, 2022 REASON FOR CONSULT: Medical Management REQUESTING PHYSICIAN: Reyes Roy MD PRIMARY CARE PHYSICIAN: Tonya Arriaga CNP ASSESSMENT AND PLAN S/p C5-6 ACDF with plating 07/04/2022 Obesity OLGA Plan: resume usual meds/dvt prophylaxis/labs in am/PT eval/IS/monitor bowel function SUBJECTIVE HISTORY OF PRESENT ILLNESS: Tammy Anna is an 36 year old female who presents for neck surgery tolerated it well. Current comfortable eating popeyes biscuits. HISTORIES PAST MEDICAL HISTORY Diagnosis Date Cervical disc disease Generalized anxiety disorder FAMILY HISTORY Problem Relation Age of Onset No Ocular Disease No Family History PAST SURGICAL HISTORY Procedure Laterality Date COLONOSCOPY 05/23/2021 EGD 05/23/2021 Social History Tobacco Use Smoking status: Every Day Packs/day: 1.00 Years: 23.00 Pack years: 23.00 Types: Cigarettes Smokeless tobacco: Never Vaping Use Vaping Use: Some days Substance Use Topics Alcohol use: Yes Comment: occasionally Drug use: Yes Types: Marijuana Comment: medical card MEDICATIONS: gabapentin (NEURONTIN) 300 mg capsule, Take 1 capsule by mouth three times daily for 30 days., Disp: 90 capsule, Rfl: 0 loratadine (CLARITIN) 10 mg tablet, Take 10 mg by mouth once daily., Disp: , Rfl: , 06/29/2022 omeprazole (PRILOSEC) 40 mg capsule, Take 1 capsule by mouth once daily., Disp: 30 capsule, Rfl: 5, 06/29/2022 Current Facility-Administered Medications Medication Dose Route Frequency gabapentin 300 mg cap(s) (NEURONTIN) 300 mg ORAL TID [START ON 07/05/2022] heparin 5,000 Units injection 5,000 Units SUBCUTANEOUS q 12 H NaCl 0.9% iv infusion 75 mL/hr INTRAVENOUS CONTINUOUS morphine 1 mg injection 1 mg INTRAVENOUS [...] mg cap(s) (COLACE) 100 mg ORAL BID [START ON 07/05/2022] polyethylene glycol 3350 17 g packet 17 g ORAL DAILY PRN vancomycin 1.5 g in NaCl 0.9% 250 mL (VANCOCIN) 1.5 g INTRAVENOUS Post-Op Once methocarbamol 750 mg tab(s) (ROBAXIN) 750 mg ORAL QID PRN [START ON 07/05/2022] pantoprazole DR 40 mg tab(s) (PROTONIX) 40 mg ORAL DAILY (6 AM) ALLERGIES: ALLERGIES Allergen Reactions Penicillins Anaphylaxis COMPLETE REVIEW OF SYSTEMS: GENERAL:Negative for malaise, significant weight loss and fever HEENT:Negative for frequent or significant headaches, significant changes in vision or vision problems, significant ear problems or hearing loss, nasal discharge or nose bleeds and sore throat, difficulty swallowing, mouth lesions NECK: +incisional tender RESPIRATORY: Negative for cough, wheezing and shortness of breath CARDIOVASCULAR: Negative for chest pain, leg swelling and palpitations GASTROINTESTINAL: Negative for abdominal discomfort, blood in stools or black stools and change in bowel habits GENITOURINARY: Negative for dysuria, frequency and incontinence MUSCULOSKELETAL: Negative for joint pain or swelling, back pain, and muscle pain. NEUROLOGIC:Negative for focal numbness or weakness, headaches and dizziness. SKIN:Negative for lesions, rash, and itching. PSYCHIATRIC: Negative for sleep disturbance, mood disorder and recent psychosocial stressors. HEMATOLOGIC/LYMPHATIC/IM MUNOLOGIC:Negative for prolonged bleeding, bruising easily, and swollen nodes. ENDOCRINE: Negative for cold or heat intolerance, polyuria, polydipsia and goiter. Positive for --> incisional pain OBJECTIVE PHYSICAL EXAM: Patient Vitals for the past 24 hrs: Body mass index is 30.86 kg/m?. Patient Vitals for the past 24 hrs: BP Temp Temp src Pulse Resp SpO2 Height Weight 07/04/22 1314 -- -- -- -- -- -- 175.3 cm (5' 9) 94.8 kg (209 lb) 07/04/22 1200 113/75 -- -- 73 -- -- -- -- 07/04/22 1130 108/70 -- -- 78 18 98 % -- -- 07/04/22 1115 110/75 -- -- 86 19 100 % -- -- 07/04/22 1100 104/63 -- -- 82 14 96 % -- -- 07/04/22 1052 -- 36.7 ?C (98.1 ?F) Oral 75 12 92 % -- -- 07/04/22 1050 -- -- -- 72 16 93 % -- -- 07/04/22 1045 102/58 -- -- 75 13 99 % -- -- 07/04/22 1030 105/60 -- -- 76 11 98 % -- -- 07/04/22 1015 107/62 -- -- 75 15 95 % -- -- 07/04/22 0952 127/73 36.6 ?C (97.9 ?F) Oral 92 25 99 % -- -- 07/04/22 0649 135/89 36.7 ?C (98.1 ?F) -- 70 14 96 % -- 94.9 kg (209 lb 3.5 oz) GENERAL: awake comfortable ; NAD SKIN: Skin color, texture, turgor fair HEENT: pupils are equal round reactive to light. External ear and nose intact. OROPHARYNX: Lips, mucosa, and tongue ar (more content not included)... [facility] NURSING PROGon 07-04-2022 NURSING PROG HNO ID: [id number] Author: Brooke Astudillo RN Service: ? Author Type: Registered Nurse Type: Nursing Progress Note Filed: 07/04/2022 2:16 PM Note Text: Daily progress 1200 Patient arrived on floor, safety maintained. Oriented to room, staff, use of call light, and unit procedures. Educated to not get up on own, and to call when needing to get up. Verbalizes understanding. Assessment as charted. Denies chest pain, shortness of breath, nausea/vomiting, numbness/tingling, headache, and dizziness. Dressing clean dry and intact. Extremities warm and mobile, pedal pulses present. Reminded to use IS, ice pack in place, SCD on bilaterally. Encouraged to call with any needs, will continue to monitor. Bed locked in lowest position, call light and possessions within reach, bed alarm on and safety maintained. [facility] NURSING PROG HNO ID: [id number] Author: Nata Roe RN Service: Nursing Author Type: Registered Nurse Type: Nursing Progress Note Filed: 07/04/2022 11:37 AM Note Text: 0952: Pt arrived to PACU with OR team on SFM 8 lpm. VSS. See NPR 1130: Report called to KENDRA Magallanes [facility] OPERATIVE NOon 07-04-2022 OPERATIVE NO HNO ID: [id number] Author: Reyes Roy MD Service: Neurosurgery Author Type: Physician Type: Operative Report Filed: 07/04/2022 9:51 AM Note Text: OPERATIVE/PROCEDURE REPORT NEUROSURGERY LOG ID: [id number] Surgery/Procedure Date: 07/04/2022 Incision/Procedure Start Time: 8:12 AM Incision Close/Procedure End Time: 9:38 AM Surgeon(s)/Proceduralist (s) and Director Of Materials(s): Surgeon(s) and Role: * Reyes Roy MD - Primary * Jairo Sadler MD - Resident - Assisting Media Consultant Outside Sales: Yodit Caba RN Media Consultant Outside Sales (Relief): Ramon Hunt RN Counter Server: Guerline Malone RT(R) Scrub Person: Issa Mckenzie RN Procedure(s): 1. C5/6 ACDF with plating 2. Use of interbody structural autograft 3. Use of operating microscope for microdisssection Preoperative Diagnosis: cervical myelopathy Postoperative Diagnosis: same Operative Indications: Ms. Anna is a very pleasant 36 y/o F who presented with bilateral arm/hand numbness tingling and pain with communication coordinator weakness. MRI shows C5/6 disc herniation with cord compression. Given the findings, surgery was offered. After weighing out the potential risks/benefits associated with the proposed surgery, the patient wished to proceed therefore informed consent was obtained. All questions were answered in detail. Anesthesia: General Findings: 1. Adequate decompression/hardware Procedure Details: The patient was brought to the operating area, and an operative huddle (including the patient and team members from neurosurgery, anesthesiology, and nursing) was performed to confirm the patient's identity and procedure to be performed. The patient was then induced with general anesthesia and intubated. The appropriate lines were placed by the anesthesiology team. The patient was positioned supine with the head in a foam donut. The area was clipped, prepped, and draped in the usual fashion, an audible timout was performed, and the patient received IV antibiotics prior to incision. A right-sided anterior cervical incision overlying C5/6 was opened sharply with a #10 scalpel down to the level of the underlying platysma. The skin edges were undermined and the platysma muscle was divided in the direction of its fibers. The groove between the trachea and esophagus and the carotid sheath was followed down to the anterior cervical spine and intraoperative x-ray localized the level. The longus colli muscles were undermined and self-retaining retractors were placed without difficulty. The annulus was divided. Nolan posts were placed in the vertebral bodies above and below the disc space of C5/6. The disc space was distracted. The microscope was brought into the field and used for microdissection. The disc material was removed with pituitary rongeurs and curettes. The posterior longitudinal ligament was then removed with a blunt nerve hook and Kerrison rongeurs. The spinal canal and neural foramen were decompressed using Kerrison rongeurs. Once the decompression was complete, the wound was copiously irrigated. The endplates of the vertebral bodies were prepared using a high speed air drill. Cadaveric allograft was fashioned to the appropriate size and tamped into place under distraction to provide for arthrodesis. Once this was complete, an MRI-compatible anterior cervical titanium plate with 2 screws was placed into the vertebral body above and below. Intra-operative x-ray demonstrated satisfactory appearance. The wound was copiously irrigated and adequate hemostasis was achieved. The wound was then closed in a layered fashion with absorbable suture and glue for skin. The incision was sterilely dressed. Final counts were correct. Estimated Blood Loss: 20 mLs Specimens: * No specimens in log * Implantable Devices: * No implants in log * Drains: None Complications: None I performed the operation with assistance from Jairo Sadler MD. SIGNATURE: Reyes Roy PATIENT NAME: Tammy Anna DATE: July 04, 2022 TIME: 9:42 AM PAGER/CONTACT #: [phone] [facility] XR CERVICAL 2V AP/LATon 06-23 XR CERVICAL 2V AP/LAT * * *Final Report* * * DATE OF EXAM: Jul 04 2022 9:28AM HCR [id number] - XR CERVICAL 2V AP/LAT / PROCEDURE REASON: PAIN * * * * Physician Interpretation * * * * RESULT: EXAMINATION: XR CERVICAL 2V AP/LAT PATIENT/TECHNOLOGIST PROVIDED HISTORY: CERVICAL FUSION CLINICAL INFORMATION: PAIN TECHNIQUE: Cervical spine, 2 fluoroscopic images. COMPARISON: 06/10/[address] RESULT: Multiple images of the cervical spine are obtained intraoperatively for surgical assessment. Anterior cervical spine plate and screw fusion hardware is noted at C5-C6. Please see operative report from performing doctor for further details. Fluoroscopic Radiation Summary: Plane A, Air Kerma: 0.4 mGy Fluoro time: 0:07 min:sec IMPRESSION: INTRAOPERATIVE ASSESSMENT. Transcribed Using Voice Recognition Transcribe Date/Time: Jul 04 2022 2:59P Dictated by: ISSA ACE DO This examination was interpreted and the report reviewed and electronically signed by: ISSA ACE DO on Jul 04 2022 3:00PM EST [id number] [facility] XR VERIFY LEVEL [id number] 07-04-2022 XR VERIFY LEVEL C-SPINE-NB * * *Final Report* * * DATE OF EXAM: Jul 04 2022 8:31AM HCR [id number] - XR VERIFY LEVEL C-SPINE-NB / PROCEDURE REASON: LOCALIZATION * * * * Physician Interpretation * * * * RESULT: EXAMINATION: XR VERIFY LEVEL C-SPINE-NB PATIENT/TECHNOLOGIST PROVIDED HISTORY: CERVICAL LOCALIZATION CLINICAL INFORMATION: LOCALIZATION COMPARISON: 06/10/2022 CT cervical spine. TECHNIQUE: Fluoroscopic imaging was performed. Fluoroscopic Radiation Summary: Plane A, Air Kerma: 0.1 mGy Dose Area Product (DAP): 0.0 mGy*cm^2 Fluoro time: 0:03 min:sec RESULT: Fluoroscopy was used in the operating room for procedural guidance. A single fluoroscopic image was obtained. Study was performed by Dr. REYES ROY The cervical vertebral bodies were labeled. I spoke with Dr. REYES ROY (who was scrubbed in on this case) at the time of the procedure by telephone who viewed the image(s) via internet chat viewer. Dr REYES ROY agreed with the spine localization as I have marked it. We also agreed that the tip of a radiopaque instrument is at the C5 level as marked with an arrow. Labeled image was saved to the archive. COMMUNICATION: Communicated with Dr REYES ROY on 07/04/2022 8:35 AM via verbal communication. IMPRESSION: INTRAOPERATIVE GUIDANCE Transcribed Using Voice Recognition Transcribe Date/Time: Jul 04 2022 8:34A Dictated by: ISSA ACE DO This examination was interpreted and the report reviewed and electronically signed by: ISSA ACE DO on Jul 04 2022 8:35AM EST [id number] Normal [facility] 07-03-2022 [facility] Telephone ([facility]) -------- TAMMY ANNA ([id number]) 1985 F Date Time Provider Department 07/03/22 CAROLINA SOLIZ [facility] During your visit today, we recorded the following information about you: Carolina Hendricks, RN 07/03/2022 1:40 PM Signed NEUROSURGERY CARE COORDINATION [facility] PRE-OP EDUCATION PHONE CALL ? Spoke with patient Tammy Anna for pre-op education. Reviewed education materials verbally with patient, including pre-operative skin preparation, medications, NPO, DOS expectations, visitor policy, inpatient expectations, wound care, post-operative pain management. ? Provided the following education materials to patient: [facility] Spine Surgery [facility] Pre-/Post-Op Instruction packet, NPO/Skin Prep Instructions, Advance Directives info, Pain Management After Spine Surgery, Preparing for Post-Acute Care Instructions : Yes. ? Reviewed with patient to report to Pre/Post op services day of surgery: Yes. ? Reviewed with patient [facility] Surgery Pre-Op will call patient after 2 pm the day before to get surgery report time for day of surgery. Provided Pre-Op front desk associate phone number of [phone] for any questions: Yes. ? Patient made [...] surgery (family member, SNF, Rehab etc.): Carolina Martínez RN July 03, 2022 1:39 PM Allergies As of Date: 07/03/2022 Noted Allergy Reaction PENICILLINS 10/05/2018 10 - Anaphylaxis Date Reviewed: 06/04/2022 Reviewed by: Lianet Mas APRN.STUDENT SPECIALIST - Fully Assessed Reason for Visit: preop info [Other] Prescriptions as of 07/03/2022 - gabapentin (NEURONTIN) 300 mg capsule Take 1 capsule by mouth three times daily for 30 days. - loratadine (CLARITIN) 10 mg tablet Take 10 mg by mouth once daily. - omeprazole (PRILOSEC) 40 mg capsule Take 1 capsule by mouth once daily. Problem List As Of Date 07/03/2022 Noted Resolved Atrial paroxysmal tachycardia (HCC) [I47.1] 12/24/2021 Anxiety attack [F41.0] 12/24/2021 Acute back pain with sciatica, right [M54.41] 04/29/2022 Cervicalgia [M54.2] 04/29/2022 Cervical myelopathy (HCC) [G95.9] 06/02/2022 Cervical stenosis of spine [M48.02] 06/02/2022 Current smoker [F17.200] 06/05/2022 GERD (gastroesophageal reflux disease) [K21.9] 06/05/2022 Class 1 obesity due to excess calories without *06/05/2022 Encounter Status:Closed by CAROLINA SOLIZ on 07/03/[address] [facility] HISTORY PHYSICALon 3 HISTORY PHYSICAL HNO ID: [id number] Author: Reyes Roy MD Service: Neurosurgery Author Type: Physician Type: HANDP Filed: 07/03/2022 9:33 PM Note Text: UPDATED PROCEDURAL SEDATION HISTORY AND PHYSICAL EXAMINATION SERVICE DATE: 07/03/22 SERVICE TIME: 9:32 PM The previously completed History and Physical has been reviewed, and the patient has been examined. The contents accurately reflect the patient's condition with the following additions or revisions since the HANDP was completed. Examination indicates no changes. Provisional Diagnosis/Treatment Plan: C5/6 ACDF SEDATION GOAL: general anesthesia This HANDP can be found in the Electronic Medical Record dated July 03, 2022. SIGNATURE: Reyes Roy MD PATIENT NAME: Tammycarson Lucaserson DATE: July 03, 2022 TIME: 9:32 PM PAGER: [phone] [facility]26[facility]2022 [facility] -------- TAMMY ANNA ([id number]) 1985 F Date Time Provider Department 06/26/22 REYES ROY [facility] During your visit today, we recorded the following information about you: Cris Mcdonnell PSS 06/26/2022 12:25 PM Signed Type of form: [employer]ML[employer] Form received via email When form is completed, email back to patient's employer Form has been forwarded to Physician Desk: Dr. Manuela Mcdonnell PSS Allergies As of Date: 06/26/2022 Noted Allergy Reaction PENICILLINS 10/05/2018 10 - Anaphylaxis Date Reviewed: 06/04/2022 Reviewed by: Lianet Mas APRN.[facility] - Fully Assessed Reason for Visit: Forms [913] Prescriptions as of 06/26/2022 - gabapentin (NEURONTIN) 300 mg capsule Take 1 capsule by mouth three times daily for 30 days. - loratadine (CLARITIN) 10 mg tablet Take 10 mg by mouth once daily. - omeprazole (PRILOSEC) 40 mg capsule Take 1 capsule by mouth once daily. Problem List As Of Date 06/26/2022 Noted Resolved Atrial paroxysmal tachycardia (HCC) [I47.1] 12/24/2021 Anxiety attack [F41.0] 12/24/2021 Acute back pain with sciatica, right [M54.41] 04/29/2022 Cervicalgia [M54.2] 04/29/2022 Cervical myelopathy (HCC) [G95.9] 06/02/2022 Cervical stenosis of spine [M48.02] 06/02/2022 Current smoker [F17.200] 06/05/2022 GERD (gastroesophageal reflux disease) [K21.9] 06/05/2022 Class 1 obesity due to excess calories without *06/05/2022 Encounter Status:Closed by CRIS WILDE on 06/26/22 [facility] 06-10-2022 [facility] Telephone ([facility]) -------- TAMMY ANNA ([id number]) 1985 F Date Time Provider Department 06/10/22 CAROLINA SOLIZ [facility] During your visit today, we recorded the following information about you: Carolina Hendricks, RN 06/10/2022 9:28 AM Signed NEUROSURGERY CARE COORDINATION [facility] QUICK NOTE ? Spoke to patient, Tammy ? Reason for call: f/u re: received message from MISAEL Rivas, regarding conversation she had with patient about increased symptoms r/t her myelopathy. Called to f/u on her symptoms. Per patient, she has had a headache originating from her neck x 2 days. Pt c/o sharp pain down neck and arms. Shocks down neck and arms. Pt reports that she had one episode where her Left arm and 2 fingers went completely numb momentarily. Pt not tolerating gabapentin, states it makes her nauseous and only takes the edge off. Advised/educated on s/sx for ED evaluation (intractable pain, decreased function/mobility). Pt states she does not want to go to the ED, does not feel she needs urgent evaluation at this time. She states she is still working and functioning and will just tough it out until her scheduled surgery on 07/04/[address] Roy. Explained to pt that I would review with Dr Roy and update her with any additional recs at this time. Pt verbalizes understanding and agrees with plan. Carolina Soliz RN June 10, 2022 9:27 AM Allergies As of Date: 06/10/2022 Noted Allergy Reaction PENICILLINS 10/05/2018 10 - Anaphylaxis Date Reviewed: 06/04/2022 Reviewed by: Lianet Mas APRN.STUDENT SPECIALIST - Fully Assessed Reason for Visit: Patient Update [1234] Prescriptions as of 06/10/2022 - gabapentin (NEURONTIN) 300 mg capsule Take 1 capsule by mouth three times daily for 30 days. - loratadine (CLARITIN) 10 mg tablet Take 10 mg by mouth once daily. - omeprazole (PRILOSEC) 40 mg capsule Take 1 capsule by mouth once daily. Problem List As Of Date 06/10/2022 Noted Resolved Atrial paroxysmal tachycardia (HCC) [I47.1] 12/24/2021 Anxiety attack [F41.0] 12/24/2021 Acute back pain with sciatica, right [M54.41] 04/29/2022 Cervicalgia [M54.2] 04/29/2022 Cervical myelopathy (HCC) [G95.9] 06/02/2022 Cervical stenosis of spine [M48.02] 06/02/2022 Current smoker [F17.200] 06/05/2022 GERD (gastroesophageal reflux disease) [K21.9] 06/05/2022 Class 1 obesity due to excess calories without *06/05/2022 Encounter Status:Closed by CAROLINA SOLIZ on 06/10/[address] [facility] CT CERVICAL SPINE WO IVCONon 06-10-2022 CT CERVICAL SPINE WO IVCON * * *Final Report* * * DATE OF EXAM: Jun 10 2022 11:39AM [facility] 0505 - CT CERVICAL SPINE WO IVCON / PROCEDURE REASON: Cervical myelopathy (HCC) * * * * Physician Interpretation * * * * EXAMINATION: CT CERVICAL SPINE WO IVCON CLINICAL HISTORY: Cervical myelopathy (HCC) TECHNIQUE: Spiral, high resolution axial unenhanced images were obtained from the skull base to the cervicothoracic junction with sagittal and coronal planar reconstructions. MQ: [id number] CT Radiation dose: Integrated CT Dose-Length Product (DLP) for this visit = 529 mGy*cm CT Dose Reduction Employed: Automated exposure control(AEC) and iterative recon COMPARISON: MR cervical spine 05/21/22 RESULT: Counting reference: Craniocervical junction. Anatomic Variants: None. Anesthesia Technician (topogram) images: No significant findings. Alignment: Straightening of the normal cervical lordosis, likely degenerative or positioning. Alignment is otherwise anatomic. Craniocervical junction: Craniocervical junction is normal. Osseous structures/fracture: No evidence of a lytic or blastic process in the visualized spine. No evidence of acute or chronic fracture. Mildly enlarged (thoracic type) transverse processes associated with the C7 vertebral body Cervical soft tissues: The paraspinal soft tissues are within normal limits. Degenerative changes: C2-C3: Canal and foramina are patent. C3-C4: There is disc degeneration with disc osteophyte complex, uncovertebral spurring, and facet arthropathy causing mild canal narrowing and mild right foraminal stenosis. C4-C5: There is disc degeneration with disc osteophyte complex, uncovertebral spurring, and facet arthropathy causing mild canal narrowing without significant foraminal stenosis. C5-C6: There is disc degeneration with disc osteophyte complex, uncovertebral spurring, and facet arthropathy causing moderate to severe canal narrowing, without significant foraminal stenosis. C6-C7: Canal and foramina are patent. C7-T1: Canal and foramina are patent. IMPRESSION: Cervical spondylosis as described worst at C5-C6 with moderate to severe canal narrowing, similar to prior MRI given differences in technique. No acute cervical spinal fracture or traumatic subluxation. Anatomic Variant: None. Assume 7 cervical vertebrae with counting from the craniocervical junction. 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: PSCB Transcribe Date/Time: Jun 10 2022 11:47A Dictated by : MONICA LONGO MD This examination was interpreted and the report reviewed and electronically signed by: MONICA LONGO MD on Jun 10 2022 11:55AM EST [id number] Normal [facility] 06-06-2022 [facility] Tele[facility] ([facility]) -------- TAMMY ANNA ([id number]) 1985 F Date Time Provider Department 06/06/22 YOVANY AHNIND During your visit today, we recorded the following information about you: Aarti Vicente 06/06/2022 2:26 PM Signed Patient called, stated at last appointment, Yovany had said if her pain persists to go to the ER, patient is wondering what the provider meant by that. She is experiencing pain and an electric feeling to where it goes down her back, and through both arms. Patient is requesting a call back. Please advise. Yovany Ahn PA-C 06/06/2022 2:46 PM Signed Spoke with patient. She states her symptoms have been progressing. Today she has had two occasions with shocks through the body. Just recently she stood up from picking up her keys and felt sharp pain through her chest, the spine and into both arms. [place] like an electrical shock. The pain and [...] surgery 07/04. Advised to be seen at [place] ED for intractable pain, increased weakness/dexterity/gil ce difficulty. Yovany Ahn PA-C Allergies As of Date: 06/06/2022 Noted Allergy Reaction PENICILLINS 10/05/2018 10 - Anaphylaxis Date Reviewed: 06/04/2022 Reviewed by: Lianet Mas APRN.STUDENT SPECIALIST - Fully Assessed Reason for Visit: Patient Update [1234] Prescriptions as of 06/06/2022 - gabapentin (NEURONTIN) 300 mg capsule Take 1 capsule by mouth three times daily for 30 days. - loratadine (CLARITIN) 10 mg tablet Take 10 mg by mouth once daily. - omeprazole (PRILOSEC) 40 mg capsule Take 1 capsule by mouth once daily. Problem List As Of Date 06/06/2022 Noted Resolved Atrial paroxysmal tachycardia (HCC) [I47.1] 12/24/2021 Anxiety attack [F41.0] 12/24/2021 Acute back pain with sciatica, right [M54.41] 04/29/2022 Cervicalgia [M54.2] 04/29/2022 Cervical myelopathy (HCC) [G95.9] 06/02/2022 Cervical stenosis of spine [M48.02] 06/02/2022 Current smoker [F17.200] 06/05/2022 GERD (gastroesophageal reflux disease) [K21.9] 06/05/2022 Class 1 obesity due to excess calories without *06/05/2022 Encounter Status:Closed by YOVANY AHN on 06/06/[address] [facility] Basic metabolic 2000 panelon 06-04-2022 Anion gap [Moles/Vol] 9 mmol/L Normal 9-18 [facility] Comment on above: Order Comment: Speci men Type: BLOOD SPECIMEN Ordering Facility: [facility] Address: [address] [address] Performed By: #### 5 7021-8 #### [facility] [id number] [address] [place] [address] [place] Calcium [Mass/Vol] 9.5 mg/dL Normal 8.5-10.2 [facility] Comment on above: Order Comment: Speci men Type: BLOOD SPECIMEN Ordering Facility: [facility] Address: [address] [address] Performed By: #### 5 7021-8 #### [facility] [id number] [address] [place] [address] [place] Chloride [Moles/Vol] 106 mmol/L High 97-105 [facility] Comment on above: Order Comment: Speci men Type: BLOOD SPECIMEN Ordering Facility: [facility] Address: [address] [address] Performed By: #### 5 7021-8 #### [facility] CLIA [id number] [address] [place] [address] [place] CO2 [Moles/Vol] 23 mmol/L Normal 22-30 [facility] Comment on above: Order Comment: Speci men Type: BLOOD SPECIMEN Ordering Facility: [facility] Address: [address] [place] [address] Performed By: #### 5 7021-8 #### [facility] [id number] [address] [place] [address] [place] Creatinine [Mass/Vol] 0.66 mg/dL Normal 0.58-0.96 [facility] Comment on above: Order Comment: Speci men Type: BLOOD SPECIMEN Ordering Facility: [facility] Address: [address] [place] [address] Performed By: #### 5 7021-8 #### [facility] [id number] [address] [place] [address] [place] ESTIMATED GLOMERULAR FILTRATION RATE 115 mL/min/1.73m??? Normal >=60 [facility] Comment on above: Order Comment: Speci men Type: BLOOD SPECIMEN Ordering Facility: [facility] Address: [address] [place] [address] Result Comment: Kathy mated Glomerular Filtration Rate (eGFR) is calculated using the 2020 CKD-EPI creatinine equation. This equation utilizes serum creatinine, sex, and age as parameters. The creatinine assay has traceable calibration to isotope dilution-mass spectrometry. Refer to KDIGO guidelines for clinical interpretation. In patients with unstable renal function, e.g. those with acute kidney injury, the eGFR may not accurately reflect actual GFR. Performed By: #### 5 7021-8 #### [facility] [id number] [address] [place] [address] [place] Glucose [Mass/Vol] 113 mg/dL High 74-99 [facility] Comment on above: Order Comment: Speci men Type: BLOOD SPECIMEN Ordering Facility: [facility] Address: [address] [id number] Result Comment: The [place] Diabetes Association (ADA) provides guidance for cutoff values for fasting glucose and random glucose. The ADA defines fasting as no caloric intake for at least 8 hours. Fasting plasma glucose results between 100 to 125 mg/dL indicate increased risk for diabetes (prediabetes). Fasting plasma glucose results greater than or equal to 126 mg/dL meet the criteria for diagnosis of diabetes. In the absence of unequivocal hyperglycemia, results should be confirmed by repeat testing. In a patient with classic symptoms of hyperglycemia or hyperglycemic crisis, random plasma glucose results greater than or equal to 200 mg/dL meet the criteria for diagnosis of diabetes. Reference: Standards of Medical Care in Diabetes 2016, [place] Diabetes Association. Diabetes Care. 2016.39(Suppl 1). Performed By: #### 5 7021-8 #### [facility] [id number] [address] [place] [address] [place] Potassium [Moles/Vol] 3.9 mmol/L Normal 3.7-5.1 [facility] Comment on above: Order Comment: Speci men Type: BLOOD SPECIMEN Ordering Facility: [facility] Address: [address] [address] Performed By: #### 5 7021-8 #### [facility] [id number] [address] [place] [address] [place] Sodium [Moles/Vol] 138 mmol/L Normal 136-144 [facility] Comment on above: Order Comment: Speci men Type: BLOOD SPECIMEN Ordering Facility: [facility] Address: [address] [phone] Performed By: #### 5 7021-8 #### [facility] CLIA [id number] [address] [place] [address] [place] Urea nitrogen [Mass/Vol] 11 mg/dL Normal 7-21 [facility] Comment on above: Order Comment: Speci men Type: BLOOD SPECIMEN Ordering Facility: [facility] Address: [address] Performed By: #### 5 7021-8 #### [facility] CLIA [id number] [address] [place] [address] [place] CBC W Auto Differential pane l (Bld)on 06-04-2022 Basophils (Bld) [#/Vol] 10*3/uL Normal <0.11 [facility] Comment on above: Order Comment: Speci men Type: BLOOD SPECIMEN Ordering Facility: [facility] Address: [address] [address] Performed By: #### 5 7021-8 #### [facility] CLIA [id number] [address] [place] [address] [place] Basophils/100 WBC (Bld) 0.2 % Normal [facility] Comment on above: Order Comment: Speci men Type: BLOOD SPECIMEN Ordering Facility: [facility] Address: [address] [place] [address] Performed By: #### 5 7021-8 #### [facility] [id number] [address] [place] [address] [place] Differential cell count method Nom (Bld) Auto Normal [facility] Comment on above: Order Comment: Speci men Type: BLOOD SPECIMEN Ordering Facility: [facility] Address: [address] Performed By: #### 5 7021-8 #### [facility] CLIA [id number] [address] [place] [address] [place] Eosinophils (Bld) [#/Vol] 0.10 10*3/uL Normal <0.46 [facility] Comment on above: Order Comment: Speci men Type: BLOOD SPECIMEN Ordering Facility: [facility] Address: [address] Performed By: #### 5 7021-8 #### [facility] CLIA [id number] [address] [place] [address] [place] Eosinophils/100 WBC (Bld) 1.9 % Normal [facility] Comment on above: Order Comment: Speci men Type: BLOOD SPECIMEN Ordering Facility: [facility] Address: [address] [place] [address] Performed By: #### 5 7021-8 #### [facility] CLIA [id number] [address] [place] [address] [place] Erythrocyte distribution width (RBC) [Ratio] 13.1 % Normal 11.5-15.0 [facility] Comment on above: Order Comment: Speci men Type: BLOOD SPECIMEN Ordering Facility: [facility] Address: [address] [place] [address] Performed By: #### 5 7021-8 #### [facility] CLIA [id number] [address] [place] [address] [place] Hematocrit (Bld) [Volume fraction] 39.8 % Normal 36.0-46.0 [facility] Comment on above: Order Comment: Speci men Type: BLOOD SPECIMEN Ordering Facility: [facility] Address: [address] [place] [address] Performed By: #### 5 7021-8 #### [facility] CLIA [id number] [address] [place] [address] [place] Hemoglobin (Bld) [Mass/Vol] 14.0 g/dL Normal 11.5-15.5 [facility] Comment on above: Order Comment: Speci men Type: BLOOD SPECIMEN Ordering Facility: [facility] Address: [address] [place] [address] Performed By: #### 5 7021-8 #### [facility] CLIA [id number] [address] [place] [address] [place] Immature granulocytes (Bld) [#/Vol] 10*3/uL Normal <0.10 [facility] Comment on above: Order Comment: Speci men Type: BLOOD SPECIMEN Ordering Facility: [facility] Address: [address] [address] Performed By: #### 5 7021-8 #### [facility] CLIA [id number] [address] [place] [address] [place] Immature granulocytes/100 WBC (Bld) 0.2 % Normal [facility] Comment on above: Order Comment: Speci men Type: BLOOD SPECIMEN Ordering Facility: [facility] Address: [address] [address] Performed By: #### 5 7021-8 #### [facility] [id number] [address] [place] [address] [place] Lymphocytes (Bld) [#/Vol] 2.07 10*3/uL Normal 1.00-4.00 [facility] Comment on above: Order Comment: Speci men Type: BLOOD SPECIMEN Ordering Facility: [facility] Address: [address] [address] Performed By: #### 5 7021-8 #### [facility] [id number] [address] [place] [address] [place] Lymphocytes/100 WBC (Bld) 39.4 % Normal [facility] Comment on above: Order Comment: Speci men Type: BLOOD SPECIMEN Ordering Facility: [facility] Address: [address] Performed By: #### 5 7021-8 #### [facility] [id number] [address] [place] [address] [place] MCH (RBC) [Entitic mass] 30.6 pg Normal 26.0-34.0 [facility] Comment on above: Order Comment: Speci men Type: BLOOD SPECIMEN Ordering Facility: [facility] Address: [address] Performed By: #### 5 7021-8 #### [facility] CLIA [id number] [address] [place] [address] [place] MCHC (RBC) [Mass/Vol] 35.2 g/dL Normal 30.5-36.0 [facility] Comment on above: Order Comment: Speci men Type: BLOOD SPECIMEN Ordering Facility: [facility] Address: [address] [place] [address] Performed By: #### 5 7021-8 #### [facility] CLIA [id number] [address] [place] [address] [place] MCV (RBC) [Entitic vol] 87.1 fL Normal 80.0-100.0 [facility] Comment on above: Order Comment: Speci men Type: BLOOD SPECIMEN Ordering Facility: [facility] Address: [address] [place] [address] Performed By: #### 5 7021-8 #### [facility] CLIA [id number] [address] [place] [address] [place] Monocytes (Bld) [#/Vol] 0.34 10*3/uL Normal <0.87 [facility] Comment on above: Order Comment: Speci men Type: BLOOD SPECIMEN Ordering Facility: [facility] Address: [address] [place] [address] Performed By: #### 5 7021-8 #### [facility] CLIA [id number] [address] [place] [address] [place] Monocytes/100 WBC (Bld) 6.5 % Normal [facility] Comment on above: Order Comment: Speci men Type: BLOOD SPECIMEN Ordering Facility: [facility] Address: [address] [place] [address] Performed By: #### 5 7021-8 #### [facility] CLIA [id number] [address] [place] [address] [place] Neutrophils (Bld) [#/Vol] 2.72 10*3/uL Normal 1.45-7.50 [facility] Comment on above: Order Comment: Speci men Type: BLOOD SPECIMEN Ordering Facility: [facility] Address: [address] [address] Performed By: #### 5 7021-8 #### [facility] CLIA [id number] [address] [place] [address] [place] Neutrophils/100 WBC (Bld) 51.8 % Normal [facility] Comment on above: Order Comment: Speci men Type: BLOOD SPECIMEN Ordering Facility: [facility] Address: [address] [address] Performed By: #### 5 7021-8 #### [facility] CLIA [id number] [address] [place] [address] [place] Nucleated RBC (Bld) [#/Vol] 10*3/uL Normal <0.01 [facility] Comment on above: Order Comment: Speci men Type: BLOOD SPECIMEN Ordering Facility: [facility] Address: [address] [address] Performed By: #### 5 7021-8 #### [facility] CLIA [id number] [address] [place] [address] [place] Nucleated RBC/100 WBC (Bld) [Ratio] 0.0 /[address] [facility] Comment on above: Order Comment: Speci men Type: BLOOD SPECIMEN Ordering Facility: [facility] Address: [address] Performed By: #### 5 7021-8 #### [facility] [id number] [address] [place] [address] [place] Platelet mean volume (Bld) [Entitic vol] 9.9 fL Normal 9.0-12.7 [facility] Comment on above: Order Comment: Speci men Type: BLOOD SPECIMEN Ordering Facility: [facility] Address: [address] [address] Performed By: #### 5 7021-8 #### [facility] CLIA [id number] [address] [place] [address] [place] Platelets (Bld) [#/Vol] 151 10*3/uL Normal 150-400 [facility] Comment on above: Order Comment: Speci men Type: BLOOD SPECIMEN Ordering Facility: [facility] Address: [address] [place] [address] Performed By: #### 5 7021-8 #### [facility] CLIA [id number] 28 [place] [address] [place] RBC (Bld) [#/Vol] 4.57 10*6/uL Normal 3.90-5.20 [facility] Comment on above: Order Comment: Speci men Type: BLOOD SPECIMEN Ordering Facility: [facility] Address: [address] [place] [address] Performed By: #### 5 7021-8 #### [facility] CLIA [id number] [address] [place] [address] [place] WBC (Bld) [#/Vol] 5.25 10*3/uL Normal 3.70-11.00 [facility] Comment on above: Order Comment: Speci men Type: BLOOD SPECIMEN Ordering Facility: [facility] Address: [address] [place] [address] Performed By: #### 5 7021-8 #### [facility] CLIA [id number] [address] [place] [address] [place] ECG COMPLETEon 06-04-2022 ECG COMPLETE Ventricular Rate : 7 5 BPM Atrial Rate : 75 BPM P-R Interval : 134 ms QRS Duration : 82 ms Q-T Interval : 370 ms QTC Calculation(Bazett) : 413 ms Calculated P [place] : 15 degrees Calculated R [place] : 48 degrees Calculated T [place] : 14 degrees NORMAL SINUS RHYTHM NORMAL ECG Confirmed by SAMY SY DO ([id number]) on 06/09/2022 2:57:27 PM NAME : TAMMY ANNA PID : [id number] : 1985 Gender : Female Race : ORD : [id number] Procedure Date : Jun 04 2022 15:36:02 Edit Date : Jun 09 2022 14:57:28 Diagnosis: NORMAL SINUS RHYTHM NORMAL ECG Confirmed by SAMY SY DO ([id number]) on 06/09/2022 2:57:27 PM Test Reason : Location : 636 : [facility] Overread By : SAMY SY DO Edited By : SAMY SY DO Referred By : LIANET MAS Acquired by : Ariana mitchell [facility] HISTORY PHYSICALon HISTORY PHYSICAL HNO ID: [id number] Author: Lianet Mas APRN.CNP Service: ? Author Type: Nurse Practitioner Type: HANDP Filed: 06/05/2022 7:48 AM Note Text: HISTORY AND PHYSICAL EXAMINATION SERVICE DATE: 06/04/2022 [...] surgery because of cervical myelopathy. 06/02/2022, Dr. Manuela Munoz Iwona Anna is a 36 year old female presenting alone. 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 Difficulty with zippers, buttons, small [...] fevers. Neurological: No history of TIA's, stroke, OCC THER tumor, impaired sensorium, hemiplegia, paraplegia or quadraplegia. No neurological symptoms or problems. Respiratory: Positive for: tobacco use (0.25ppd). Negative for: asthma, COPD, pneumonia within 6 weeks, URI < 2 weeks and obstructive sleep apnea. Cardiovascular: No history of HTN requiring medication, no history of angina, CHF, [place], cardiac surgery or stents. Denies rest pain, gangrene or revascularization/amputa tion for PVD. No history of cardiovascular symptoms or problems. GI: Positive for: dysphagia and GERD (on rx) Negative for: abdominal pain, hepatitis, irritable bowel syndrome, inflammatory bowel disease, liver disease, nausea, pancreatitis, vomiting and ETOH >2 drinks/day. : No history of dysuria, frequency or incontinence, stones or chronic kidney disease. No difficulty urinating, nocturia > 1 time per night or hematuria. 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 Taking Yes loratadine (CLARITIN) 10 mg tablet Take 10 mg by mouth once daily. Taking Yes omepr (more content not included)... Normal [facility] HbA1c (Bld)on 06-04-2022 Average glucose Estimated from glycated hemoglobin (Bld) [Mass/Vol] 100 mg/dL Normal [facility] Comment on above: Order Comment: Patricia rosas Type: BLOOD SPECIMEN Order[facility] Facility: [facility] Address: [address] [place] [address] Result Comment: eAG: (Estimated average glucose) is a calculated value from HgbA1c and is international representative of the average blood glucose level in the last 2-3 month period. Performed By: #### 5 7021-8 #### [facility] [id number] [address] [place] [address] [place] HbA1c (Bld) [Mass fraction] 5.1 % Normal 4.3-5.6 [facility] Comment on above: Order Comment: Patricia rosas Type: BLOOD SPECIMEN Ordering Facility: [facility] Address: [address] [place], [place] [phone] Result Comment: Amer ican Diabetes Association guidelines indicate that patients with HgbA1c in the range 5.7-6.4% are at increased risk for development of diabetes, and intervention by lifestyle modification may be beneficial. HgbA1c greater or equal to 6.5% is considered diagnostic of diabetes. Performed By: #### 5 7021-8 #### [facility] CLIA [id number] [address] [place] [address] [place] NICOTINE/COTININEon 06-05-19 Cotinine [Mass/Vol] 257 ng/mL High <2 [facility] Comment on above: Order Comment: Speci men Type: BLOOD SPECIMEN Ordering Facility: [facility] Address: [address] [place] [address] Result Comment: Acti ve tobacco product user: Nicotine concentration: 30 - 50 ng/mL Cotinine concentration: 200 - 800 ng/mL Passive exposure to tobacco: Nicotine concentration: < 2 ng/mL Cotinine concentration: < 8 ng/mL Unexposed non-tobacco user or abstinent user for > 2 weeks: Nicotine concentration: < 2 ng/mL Cotinine concentration: < 2 ng/mL This test was developed and its performance characteristics determined by [facility] Pathology and Laboratory Medicine [place] (RT-[facility]). It has not been cleared or approved by the FDA. [facility] is regulated under CLIA as qualified to perform high-complexity testing. This test is used for clinical purposes. It should not be regarded as investigational or for research. Performed By: #### 5 7021-8 #### [facility] CLIA [id number] [address] [place] [address] [place] Nicotine [Mass/Vol] 17 ng/mL High <2 [facility] Comment on above: Order Comment: Speci men Type: BLOOD SPECIMEN Ordering Facility: [facility] Address: [address] [place], [place] [phone] Performed By: #### 5 7021-8 #### [facility] [id number] [address] [place] [address] [place] PT panel Coag (PPP)on 2022 INR Coag (PPP) [Relative time] 1.0 {INR} Normal 0.9-1.3 [facility] Comment on above: Order Comment: Speci men Type: BLOOD SPECIMEN Ordering Facility: [facility] Address: [address] [place], [place] [id number] Result Comment: Yen min K Antagonist (VKA) Therapeutic Range: INR 2 to 3 (Target INR of 2.5) Note: For patients treated with VKA drugs, such as warfarin, the [employer] 2012 Guideline recommends a therapeutic INR range of 2 to 3 (target INR of 2.5). This recommendation includes high-risk patients with antiphospholipid syndrome with previous arterial or venous thromboembolism, current-generation mechanical or bioprosthetic aortic heart valve replacement. Note: Patients with mechanical aortic valve replacement and additional risk factors for thromboembolic events (atrial fibrillation, previous thromboembolism, LV dysfunction, hypercoagulable conditions) or an older generation mechanical AVR (i.e., ball in-Cage) or any mechanical MVR should have a INR therapeutic range of 2.5 to 3.5 (target INR of 3). Elton GH, et al. Chest 2012, 141:7S-47S Lee RA, et al. [facility] 2017, 70: 252-289 Performed By: #### 5 7021-8 #### [facility] CLIA [id number] [address] [place] [address] [place] PT Coag (PPP) [Time] 9.9 s Normal <13.1 [facility] Comment on above: Order Comment: Patricia rosas Type: BLOOD SPECIMEN Order[facility] Facility: [facility] Address: [address] [place] [address] Performed By: #### 5 7021-8 #### [facility] CLIA [id number] [address] [place] [address] [place] STAPH AUREUS PCRon 3 S. aureus and MRSA panel ASHOK+probe (Nose) Normal Negative [facility] Comment on above: Order Comment: Patricia rosas Type: BLOOD SPECIMEN Ordering Facility: [facility] Address: [address] [place], [place] [id number] Result Comment: Nega tive for Staphylococcus aureus by PCR. Negative for MRSA by PCR Performed By: #### 5 7021-8 #### [facility] CLIA [id number] [address] [place] [address] [place] TYPE AND SCREEN,30 DAYon ABO B Normal [facility] Comment on above: Order Comment: Speci men Type: BLOOD SPECIMEN Ordering Facility[facility] Address: [address] [place] [address] Performed By: #### 5 7021-8 #### [facility] CLIA [id number] [address] [place] [address] OF [facility] HISTORICAL AB SCR STATUS Negative Normal [facility] Comment on above: Order Comment: Speci men Type: BLOOD SPECIMEN Ordering Facility[facility] Address: [address] [place] [address] Performed By: #### 5 7021-8 #### [facility] CLIA [id number] [address] [place] [address] Rh Nom (Bld) Positive Normal [facility] Comment on above: Order Comment: Speci men Type: BLOOD SPECIMEN Ordering [facility] Address: [address] [place] [address] Performed By: #### 5 7021-8 #### [facility] CLIA [id number] [address] [place] [address] [place] aPTT PPPon 06-04-2022 aPTT Coag (PPP) [Time] 23.2 s Normal 23.0-32.4 [facility] Comment on above: Order Comment: Speci men Type: BLOOD SPECIMEN Ordering [facility] Address: [address] [place] [address] Performed By: #### 5 7021-8 #### [facility] CLIA [id number] [address] [place] [address] [place] CNPNon 06-03-2022 CNPN Telephone ([facility]) -------- TAMMY ANNA ([id number]) 1985 F Date Time Provider Department 06/03/22 REYES ROY [facility] During your visit today, we recorded the following information about you: Ashley Hernandez 06/03/2022 12:36 PM Signed NI PHONE Name of caller : Tammy Relationship to patient : Self If not self Will need patient permission to release results or disclose health information with called documented in . Was permission obtained from patient ? Yes Patient identified by Name and Date of . ( Tammy Lucaserson, 1985). Yes Reason for Call : I have scheduled Tammy for her 2 week virtual post op and her 6 week post op. Her PACC was already scheduled. Number to return call [phone] Okay to leave a message ? Yes Thank you calling [facility]. You will receive a return call within 48 hours ( or 2 business days if close to the weekend). If you feel that this is an urgent issue and needs immediate attention, it is recommended that you contact your primary care provider office or proceed to your nearest Urgent Care Center of Emergency Room ED for evaluation/treatment. Allergies As of Date: 06/03/2022 Noted Allergy Reaction PENICILLINS 10/05/2018 10 - Anaphylaxis Date Reviewed: 06/02/2022 Reviewed by: Dulce Shi Ma - Fully Assessed Reason for Visit: Appointment [186] Prescriptions as of 06/03/2022 - gabapentin (NEURONTIN) 300 mg capsule Take 1 capsule by mouth three times daily for 30 days. - loratadine (CLARITIN) 10 mg tablet Take 10 mg by mouth once daily. - omeprazole (PRILOSEC) 40 mg capsule Take 1 capsule by mouth once daily. Problem List As Of Date 06/03/2022 Noted Resolved Atrial paroxysmal tachycardia (HCC) [I47.1] 12/24/2021 Anxiety attack [F41.0] 12/24/2021 Acute back pain with sciatica, right [M54.41] 04/29/2022 Cervicalgia [M54.2] 04/29/2022 Cervical myelopathy (HCC) [G95.9] 06/02/2022 Cervical stenosis of spine [M48.02] 06/02/2022 Encounter Status:Closed by ASHLEY HERNANDEZ on 06/03/22 [facility] -------- TAMMY ANNA ([id number]) 1985 F Date Time Provider Department 06/03/22 CAROLINA SOLIZ During your visit today, we recorded the following information about you: Carolina Hendricks RN 06/03/2022 9:59 AM Signed NEUROSURGERY CARE COORDINATION [facility] SURGERY SCHEDULING ? Patient Tammy Anna accepts surgery date of 07/04/[address] Roy. Planned procedure is C5/6 ACDF. ? PAT will be completed at [facility]. ? Medications reviewed: Yes. Medications to be stopped prior to surgery: other : N/A. ? Additional pre-op clearances needed: per [facility] provider recommendations. ? Any implanted devices: No. ? Transplant History No ? Patient will require optimization lab work: per [facility] provider recommendations ? Questions answered. Patient verbalizes understanding via teach back. Carolina Soliz RN June 03, 2022 9:58 AM Allergies As of Date: 06/03/2022 Noted Allergy Reaction PENICILLINS 10/05/2018 10 - Anaphylaxis Date Reviewed: 06/02/2022 Reviewed by: Dulce Shi Ma - Fully Assessed Reason for Visit: surgery scheduling [Other] Prescriptions as of 06/03/2022 - gabapentin (NEURONTIN) 300 mg capsule Take 1 capsule by mouth three times daily for 30 days. - loratadine (CLARITIN) 10 mg tablet Take 10 mg by mouth once daily. - omeprazole (PRILOSEC) 40 mg capsule Take 1 capsule by mouth once daily. Problem List As Of Date 06/03/2022 Noted Resolved Atrial paroxysmal tachycardia (HCC) [I47.1] 12/24/2021 Anxiety attack [F41.0] 12/24/2021 Acute back pain with sciatica, right [M54.41] 04/29/2022 Cervicalgia [M54.2] 04/29/2022 Cervical myelopathy (HCC) [G95.9] 06/02/2022 Cervical stenosis of spine [M48.02] 06/02/2022 Encounter Status:Closed by CAROLINA SOLIZ on 06/03/[address] [facility] CNOVon 06-02-2022 CNOV Office Visit ([facility] ) -------- TAMMY ANNA ([id number]) 1985 F Date Time Provider Department 06/02/22 3:00 PM REYES ROY [facility] During your visit today, we recorded the following information about you: Pulse Blood pressure 84/minute 138/86 Reyes Roy MD 06/02/2022 3:46 PM Signed SPINE SURGERY OUTPATIENT CONSULT This is an in-person visit. SERVICE DATE: 06/02/2022 PCP: Tonya Arriaga CNP REFERRING PROVIDER: Yovany Ahn [address] [facility] [address] Consult requested for an opinion regarding the evaluation and treatment of cervical disc herniation. My final impression and recommendations will be communicated back to the requesting physician by way of the shared medical record or letter via US mail. SUBJECTIVE Tammycarson Anna is a 36 year old female presenting alone. 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 Difficulty with zippers, buttons, small [...] (M48.02) Cervical stenosis of spine In summary, (more content not included)... Normal [facility] MRI CERVICAL SPINE WO IVCONo n 05-21-2022 MRI CERVICAL SPINE WO IVCON * * *Final Report* * * DATE OF EXAM: May 21 2022 3:05PM [facility] [id number] - MRI CERVICAL SPINE WO IVCON / PROCEDURE REASON: multiple diagnoses * * * * Physician Interpretation * * * * EXAMINATION: MRI CERVICAL SPINE WO IVCON CLINICAL HISTORY: Pain in both upper extremities Pain in both upper extremities Neck pain Imbalance TECHNIQUE: Routine cervical spine MR protocol without gadolinium. MQ: [id number] COMPARISON: Lumbar spine radiograph 03/17/2022. RESULT: Counting reference: Craniocervical junction. Anatomic Variants: None. Localizer images: No significant findings. Alignment: Alignment is anatomic. There is straightening of the normal cervical lordosis. Craniocervical junction: Craniocervical junction is normal. Cord: The visualized cord is within normal limits of signal intensity and morphology. Bone marrow signal/fracture: No evidence of pathologic marrow infiltration. No evidence of prior fracture. Cervical soft tissues: The paraspinal soft tissues are within normal limits. C2-C3: Canal and foramina are patent. C3-C4: Canal and foramina are patent. C4-C5: There is mild bilateral facet arthropathy and mild diffuse disc bulge resulting partial effacement of ventral thecal sac without cord impingement and mild to moderate right neural foraminal narrowing. There is no left neural foraminal narrowing. C5-C6: There is mild bilateral facet arthropathy and diffuse disc bulge with a superimposed right paracentral disc protrusion resulting in severe spinal canal stenosis and indentation of the right greater than left ventral cord and moderate bilateral neural foraminal narrowing. C6-C7: There is mild diffuse disc bulge resulting in partial effacement of ventral thecal sac without cord impingement and mild bilateral neural foraminal narrowing. C7-T1: Canal and foramina are patent. IMPRESSION: Degenerative changes of cervical spine, most pronounced at C5-C6 resulting in severe spinal canal stenosis and indentation of the right greater than left ventral cord and moderate bilateral neural foraminal narrowing, as detailed. Anatomic Variant: None. Assume 7 cervical vertebrae with counting from the craniocervical junction. 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 MQ: [id number] COMPARISON: None. RESULT: Counting reference: Lumbosacral junction. For the purposes of this report, L4-5 is considered the level of the iliac crest and assume there are 5 lumbar-type vertebrae. Anatomic variant: None. Localizer images: No significant findings. Alignment: Alignment is anatomic. Bone marrow signal/fracture: There are Schmorl's nodes at inferior endplates of T12, L1, L2, L3 and superior and inferior endplates of L5-S1. No evidence of pathologic marrow infiltration. No evidence of prior fracture. Conus: The conus is within normal limits of signal intensity and morphology. The conus medullaris terminates at L2. Paraspinal soft tissues: Paraspinal soft tissues are within normal limits. Lower thoracic spine: Visualized lower thoracic canal and foramina are patent. L1-L2: Canal and foramina are patent. L2-L3: Canal and foramina are patent L3-L4: Canal and foramina are patent L4-L5: There is mild bilateral facet arthropathy resulting in mild bilateral neural foraminal narrowing. There is no spinal canal stenosis. L5-S1: There is mild loss of interval intervertebral disc space height. There is minimal right and mild left facet arthropathy and minimal diffuse disc bulge resulting in mild mild to moderate left and mild right neural foraminal narrowing. Sacrum and iliac wings: The visualized sacrum and iliac wings are within normal limits. IMPRESSION: Mild degenerative changes of the lumbar spine, as detailed. Anatomic Lumbar Variant: None. L4-5 is considered the level of the iliac crest and assume there are 5 lumbar-type vertebrae. 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 CBC W Auto Differential pane l (Bld)on 03-17-2022 Basophils (Bld) [#/Vol] <0.11 k/uL [facility] Basophils/100 WBC (Bld) 0.3 % [facility] Differential cell count method Nom (Bld) Auto [facility] Eosinophils (Bld) [#/Vol] 0.12 10*3/uL <0.46 k/uL [facility] Eosinophils/100 WBC (Bld) 1.8 % [facility] Erythrocyte distribution width (RBC) [Ratio] 13.4 % 11.5 - 15.0 % [facility] Hematocrit (Bld) [Volume fraction] 44.2 % 36.0 - 46.0 % [facility] Hemoglobin (Bld) [Mass/Vol] 14.9 g/dL 11.5 - 15.5 g/dL [facility] Immature granulocytes (Bld) [#/Vol] <0.10 k/uL [facility] Immature granulocytes/100 WBC (Bld) 0.1 % [facility] Lymphocytes (Bld) [#/Vol] 2.87 10*3/uL 1.00 - 4.00 k/uL [facility] Lymphocytes/100 WBC (Bld) 42.4 % [facility] MCH (RBC) [Entitic mass] 30.1 pg 26.0 - 34.0 pg [facility] MCHC (RBC) [Mass/Vol] 33.7 g/dL 30.5 - 36.0 g/dL [facility] MCV (RBC) [Entitic vol] 89.3 fL 80.0 - 100.0 fL [facility] Monocytes (Bld) [#/Vol] 0.46 10*3/uL <0.87 k/uL [facility] Monocytes/100 WBC (Bld) 6.8 % [facility] Neutrophils (Bld) [#/Vol] 3.29 10*3/uL 1.45 - 7.50 k/uL [facility] Neutrophils/100 WBC (Bld) 48.6 % [facility] Nucleated RBC (Bld) [#/Vol] <0.01 k/uL [facility] Nucleated RBC/100 WBC (Bld) [Ratio] 0.0 /100 WBC [facility] Platelet mean volume (Bld) [Entitic vol] 10.3 fL 9.0 - 12.7 fL [facility] Platelets (Bld) [#/Vol] 185 10*3/uL 150 - 400 k/uL [facility] RBC (Bld) [#/Vol] 4.95 10*6/uL 3.90 - 5.2 0 m/uL [facility] WBC (Bld) [#/Vol] 6.77 10*3/uL 3.70 - 11. 00 k/uL [facility] ESR Westergren method (Bld) [Velocity]on 03-17-2022 ESR (Bld) [Velocity] 2 mm/h 0 - 20 mm/hr [facility] No Panel Informationon 03-17 Radiology Study observation (narrative) [facility] XR CERV OTHER 4V AP/LAT/OBLo n 03-17-2022 [facility] XR Cervical spine AP and Lat eral and obliqueon 03-17-2022 IMPRESSION: 1. CURVATURE 2. DEGENERATIVE CHANGES 3. ANATOMIC VARIANT: PROMINENT C7 TRANSVERSE PROCESSES. 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: [facility] Transcribe Date/Time: Mar 17 2022 2:32P Dictated by : SHANTE MILLER MD This examination was interpreted and the report reviewed and electronically signed by: SHANTE MILLER MD on Mar 17 2022 2:35PM [facility] DIVISION OF RADIOLOGY * * *Final Report* * * DATE OF EXAM: Mar 17 2022 1:51PM CCX [id number] - XR CERVICAL 4V AP/LAT/OBL / PROCEDURE REASON: multiple diagnoses * * * * Physician Interpretation * * * * HISTORY: Multiple joint pain Chronic midline low back pain with bilateral sciatica Chronic midline low back pain with bilateral sciatica Chronic midline low back pain with bilateral sciatica TECHNOLOGIST PROVIDED HISTORY (if applicable): PAIN. NO INJURY TECHNIQUE: XR CERVICAL 4V AP/LAT/OBL RESULT: Cervical spine 4 views. Counting reference: Craniocervical junction. Anatomic variant: Prominent C7 transverse processes. Mild rightward head tilt with reversal of [...] No osseous foraminal encroachment on the LEFT. 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 NO INJURY TECHNIQUE: XR CERVICAL 4V AP/LAT/OBL RESULT: Cervical spine 4 views. Counting reference: Craniocervical junction. Anatomic variant: Prominent C7 transverse processes. Mild rightward head tilt with reversal of [...] No osseous foraminal encroachment on the LEFT. IMPRESSION IMPRESSION: 1. CURVATURE 2. DEGENERATIVE CHANGES 3. ANATOMIC VARIANT: PROMINENT C7 TRANSVERSE PROCESSES. 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: [facility] Transcribe Date/Time: Mar 17 2022 2:32P Dictated by : SHANTE MILLER MD This examination was interpreted and the report reviewed and electronically signed by: SHANTE MILLER MD on Mar 17 2022 2:35PM EST [facility] XR Cervical spine AP and Lat eral and obliqueOrdered By: Ccf Provider on 03-17-2022 [facility] XR LUMBAR GENERAL 3V AP/LAT/ L5-S1on 03-17-2022 [facility] XR Lumbar spine 3 Viewson IMPRESSION: MILD SCOLIOSIS. 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 Counting reference: Lumbosacral junction. For the purposes of this report, L5-S1 is considered the most caudal well formed disc space. Overlying clothing artifacts at the thoracolumbar junction. T-shaped intrauterine device. Mild apex rightward curvature is centered at L4-5. The lordosis is preserved without subluxation. There are mild inferior endplate deformities of the anterior aspect of T12 and L5 which are smoothly marginated and consistent with chronic changes. No acute fractures identified. No destructive lesion. The sacroiliac joints and hips appear preserved. 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 Counting reference: Lumbosacral junction. For the purposes of this report, L5-S1 is considered the most caudal well formed disc space. Overlying clothing artifacts at the thoracolumbar junction. T-shaped intrauterine device. Mild apex rightward curvature is centered at L4-5. The lordosis is preserved without subluxation. There are mild inferior endplate deformities of the anterior aspect of T12 and L5 which are smoothly marginated and consistent with chronic changes. No acute fractures identified. No destructive lesion. The sacroiliac joints and hips appear preserved. IMPRESSION IMPRESSION: MILD SCOLIOSIS. 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: [employer] Transcribe Date/Time: Mar 17 2022 2:35P Dictated by : SHANTE MILLER MD This examination was interpreted and the report reviewed and electronically signed by: SHANTE MILLER MD on Mar 17 2022 2:37PM [facility] Serum nuclear antibody titer by immunofluorescenceon 11-27-2021 Nuclear Ab IF (S) [Titer] See comment [facility] [place] [facility] Work Phone: Comment on above: Antinuclear Antibodi es IFA Antinuclear Antibodies, IFA Positive Abnormal Negative < 1:80 Borderline 1:80 Positive > 1:80 Homogeneous Pattern 1:160 High ICAP nomenclature: AC-[id number]: For more information about Hep-2 cell patterns useSunEdison.[employer], the official website for the InternationalConsensus on Antinuclear Antibody (JONY) Patterns (ICAP). ---- Note: A positive JONY result may occur in healthy individualsor be associated with a variety of diseases. Seeinterpretation below:Pattern Antigen Detected Suggested Disease Association Homogenous DNA(ds,ss,n), High titers - SLE (Smooth) Histone Speckled Sm,HOMICIDE DETECTIVE,SCL-70, SLE,MCTD, Scleroderma, SS-A/SS-B Sjogrens Nucleolar SCL-70,PM-1/SCL High titers Scleroderma Polymyositis/scleroderma over- lap Centromere Centromere PSS w/Crest syndrome variable Nuclear Dot [id number] Primary Biliary Cirrhosis Nuclear GP210, Primary Biliary CirrhosisMembrane brent A,B,C TESTING PERFORMED AT [facility]. ORIGINAL REPORT ON FILE IN LAB CONTAINS ADDITIONAL TEST SITE INFORMATION. No Panel Informationon 10-25 Anti-Nuclear Antibody Screen Positive Negative [facility] [place] [facility] Work Phone: Comment on above: Performed at: [employer] [place] [id number] Director: Trino Dozier PhD, Phone: [phone] No Panel Informationon 09-13 Anti-Nuclear Antibody Screen Positive Negative [facility] [place] [facility] Work Phone: Comment on above: Performed at: [employer] [place], [place] [id number] Director: Trino Dozier PhD, Phone: [phone] Absolute lymphocyte counton 2021 Lymphocytes Auto (Unsp spec) [#/Vol] 1.20 10*3/uL 0.83-4.51 [facility] [place] [facility] Work Phone: Basophil percentageon 2021 Basophils/100 WBC (Bld) 0.2 % 0-1 [facility] [place] [facility] Work Phone: Eosinophils/100 WBC (Bld) 0.5 % 0-5 [facility] [place] [facility] Work Phone: Neutrophils (Bld) [#/Vol] 4.3 10*3/uL 2.0-7.7 [facility] [place] [facility] Work Phone: Neutrophils/100 WBC (Bld) 74.0 % 47-70 [facility] [place] [facility] Work Phone: WBC (Bld) [#/Vol] 5.8 10*3/uL 4.4-11.0 [facility] Work Phone: Blood erythrocytes count (nu mber/volume)on 2021 RBC (Bld) [#/Vol] 4.64 10*6/uL 4.2-5.4 [facility] Work Phone: Blood hemoglobin measurement (mass/volume)on 2021 Hemoglobin (Bld) [Mass/Vol] 14.1 g/dL 12.0-15.0 [facility] [place] [facility] Work Phone: Blood lymphocytes/100 leukoc yteson 2021 Lymphocytes/100 WBC (Bld) 20.8 % 19-41 [facility] [place] [facility] Work Phone: Blood monocytes/100 leukocyt eson 2021 Monocytes/100 WBC (Bld) 4.2 % 0-10 [facility] [place] [facility] Work Phone: Blood platelet mean volumeon 2021 Platelet mean volume (Bld) [Entitic vol] 10.4 fL 6.2-12.0 [facility] [place] [facility] Work Phone: Determination of erythrocyte mean corpuscular volume (MCV)on 2021 MCV (RBC) [Entitic vol] 89.2 fL 81-99 [facility] [place] [facility] Work Phone: Hematocrit Auto (Bld) [Volum e fraction]on 2021 Hematocrit (Bld) [Volume fraction] 41.4 % 37-47 [facility] [place] [facility] Work Phone: Laboratory - Hematology and Cell countson 2021 Erythrocyte distribution width (RBC) [Entitic vol] 42.7 fL 35.1-43.9 [facility] [place] [facility] Work Phone: Erythrocyte distribution width (RBC) [Ratio] 13.1 % 11.6-14.6 [facility] [place] [facility] Work Phone: Immature granulocytes/100 WBC (Bld) 0.300 % 0.0-0.9 [facility] [place] [facility] Work Phone: Comment on above: IG% - Immature Granu locytes (promyelocytes, myelocytes and metamyelocytes) > 1% indicates that a LEFT SHIFT is Present. MCH (RBC) [Entitic mass] 30.4 pg 27.0-32.0 [facility] [place] [facility] Work Phone: Nucleated RBC/100 WBC (Bld) [Ratio] 0 % 0-5 [facility] [place] [facility] Work Phone: MCHC Auto (RBC) [Mass/Vol]on 2021 MCHC (RBC) [Mass/Vol] 34.1 g/dL 32-36 [facility] [place] [facility] Work Phone: No Panel Informationon 09-05 Anti-Nuclear Antibody Screen Positive Negative [facility] [place] [facility] Work Phone: Comment on above: Performed at: [address] [id number] Director: Trino Dozier PhD, Phone: [phone] Platelets bldon 2021 Platelets (Bld) [#/Vol] 161 10*3/uL 150-450 [facility] [place] [facility] Work Phone: Serum rheumatoid factor dete ctionon 2021 Rheumatoid factor Ql (S) < 10.0 IU/mL <15 [facility] [place] [facility] Work Phone: Absolute lymphocyte counton 08-29-2021 Lymphocytes Auto (Unsp spec) [#/Vol] 2.51 10*3/uL 0.83-4.51 [facility] [place] [facility] Work Phone: Basophil percentageon 2021 Basophils/100 WBC (Bld) 0.4 % 0-1 [facility] [place] [facility] Work Phone: Bilirubin [Mass/Vol] 0.30 mg/dL 0.20-1.00 [facility] Work Phone: [phone] Comment on above: For patients on eltr ombopag therapy, use of Dimension Murray TBIL is not recommended. Chloride [Moles/Vol] 109 mmol/L 98-107 [facility] Work Phone: [phone] Eosinophils/100 WBC (Bld) 2.9 % 0-5 [facility] [place] [facility] Work Phone: [phone] Glucose [Mass/Vol] 97 mg/dL 74-106 [facility] Work Phone: [phone] Neutrophils (Bld) [#/Vol] 2.1 10*3/uL 2.0-7.7 [facility] [place] [facility] Work Phone: [phone] Neutrophils/100 WBC (Bld) 40.8 % 47-70 [facility] [place] [facility] Work Phone: Potassium [Moles/Vol] 3.7 mmol/L 3.5-5.1 [facility] [place] [facility] Work Phone: Protein [Mass/Vol] 6.8 g/dL 6.4-8.2 [facility] Work Phone: Sodium [Moles/Vol] 140 mmol/L 136-145 [facility] Work Phone: [phone] WBC (Bld) [#/Vol] 5.2 10*3/uL 4.4-11.0 [facility] Work Phone: Blood erythrocytes count (nu mber/volume)on 08-29-2021 RBC (Bld) [#/Vol] 4.49 10*6/uL 4.2-5.4 [facility] Work Phone: Blood hemoglobin measurement (mass/volume)on 08-29-2021 Hemoglobin (Bld) [Mass/Vol] 13.5 g/dL 12.0-15.0 [facility] [place] [facility] Work Phone: Blood lymphocytes/100 leukoc yteson 08-29-2021 Lymphocytes/100 WBC (Bld) 48.7 % 19-41 [facility] Work Phone: Blood monocytes/100 leukocyt eson 08-29-2021 Monocytes/100 WBC (Bld) 7.0 % 0-10 [facility] [place] [facility] Work Phone: Blood platelet mean volumeon 08-29-2021 Platelet mean volume (Bld) [Entitic vol] 10.6 fL 6.2-12.0 [facility] [place] [facility] Work Phone: Determination of erythrocyte mean corpuscular volume (MCV)on 08-29-2021 MCV (RBC) [Entitic vol] 88.2 fL 81-99 [facility] [place] [facility] Work Phone: Erythrocyte sedimentation ra esperanza 08-29-2021 ESR (Bld) [Velocity] 4 mm/h 0-30 [facility] Work Phone: HIV 1 and HIV-2 antibody ass ay with HIV-1 p24 antigen detectionon 08-29-2021 HIV 1+2 Ab+HIV1 p24 Ag IA Ql Non-Reactive Nonreactive [facility] [place] [facility] Work Phone: Hematocrit Auto (Bld) [Volum e fraction]on 08-29-2021 Hematocrit (Bld) [Volume fraction] 39.6 % 37-47 [facility] [place] [facility] Work Phone: Laboratory - Chemistry and C hemistry - challengeon 08-29-2021 ALP [Catalytic activity/Vol] 79 U/L 45-117 [facility] [place] [facility] Work Phone: ALT [Catalytic activity/Vol] 28 U/L 13-56 [facility] [place] [facility] Work Phone: CO2 [Moles/Vol] 26.0 mmol/L 21.0-32.0 [facility] [place] [facility] Work Phone: Globulin (S) [Mass/Vol] 3.0 g/dL 2.2-4.2 [facility] [place] [facility] Work Phone: Urea nitrogen/Creatinine [Mass ratio] 19.8 mg/mg 10-20 [facility] [place] [facility] Work Phone: Laboratory - Hematology and Cell countson 08-29-2021 Erythrocyte distribution width (RBC) [Entitic vol] 42.3 fL 35.1-43.9 [facility] [place] [facility] Work Phone: Erythrocyte distribution width (RBC) [Ratio] 13.0 % 11.6-14.6 [facility] [place] [facility] Work Phone: Immature granulocytes/100 WBC (Bld) 0.200 % 0.0-0.9 [facility] [place] [facility] Work Phone: Comment on above: IG% - Immature Granu locytes (promyelocytes, myelocytes and metamyelocytes) > 1% indicates that a LEFT SHIFT is Present. MCH (RBC) [Entitic mass] 30.1 pg 27.0-32.0 [facility] [place] [facility] Work Phone: Nucleated RBC/100 WBC (Bld) [Ratio] 0 % 0-5 [facility] [place] [facility] Work Phone: MCHC Auto (RBC) [Mass/Vol]on 08-29-2021 MCHC (RBC) [Mass/Vol] 34.1 g/dL 32-36 [facility] [place] [facility] Work Phone: No Panel Informationon 08-29 Estimated GFR (MDRD) Amer 110 mL/min >60 [facility] [place] [facility] Work Phone: Comment on above: GFR Calc Estimated GFR (MDRD) Non-Af Amer 91 mL/min >60 [facility] [place] [facility] Work Phone: Comment on above: Non- GFR Calc Platelets bldon 08-29-2021 Platelets (Bld) [#/Vol] 121 10*3/uL 150-450 [facility] [place] [facility] Work Phone: Serum Dariel Edwards virus cap dariel IgG antibody assay (units/volume)on 08-29-2021 EBV capsid IgG Qn (S) [arb'U]/mL 0.0-17.9 [facility] [place] [facility] Work Phone: Comment on above: Negative <18.0 Equiv ocal 18.0 - 21.9 Positive >21.9Performed at: [address] [id number] Director: Trino Dozier PhD, Phone: [phone] Serum Dariel Edwards virus ear ly IgG antibody assay (units/volume)on 08-29-2021 EBV early IgG Qn (S) <9.0 U/mL 0.0-8.9 [facility] Work Phone: Comment on above: Negative < 9.0 Equiv ocal 9.0 - 10.9 Positive >10.9 Serum or plasma albumin jennifer urement (mass/volume)on 08-29-2021 Albumin [Mass/Vol] 3.8 g/dL 3.2-5.0 [facility] Work Phone: Serum or plasma albumin/glob ulin mass ratioon 08-29-2021 Albumin/Globulin [Mass ratio] 1.3 {ratio} 0.9-2.4 [facility] [place] [facility] Work Phone: Serum or plasma calcium jennifer urement (mass/volume)on 08-29-2021 Calcium [Mass/Vol] 9.0 mg/dL 8.5-10.1 [facility] Work Phone: Serum or plasma creatinine m easurement (mass/volume)on 08-29-2021 Creatinine [Mass/Vol] 0.76 mg/dL 0.55-1.02 [facility] [place] [facility] Work Phone: Comment on above: The validity of the calculated GFR & GFRAA in patients over 70 years has not been determined. Clinical correlation is essential. Serum or plasma urea nitroge n measurement (mass/volume)on 08-29-2021 Urea nitrogen [Mass/Vol] 15 mg/dL 7-18 [facility] [place] [facility] Work Phone: Thin prep Papanicolaou smear with manual screeningon 08-29-2021 Thin prep Papanicolaou smear with manual screening 18 U/L 15-37 [facility] [place] [facility] Work Phone: Thin prep Papanicolaou smear with manual screening 5 5-15 [facility] [place] [facility] Work Phone: EGD DIAGNOSTICon 05-23-2021 [facility] XR DIGIT GENERAL 3V FRONTAL/ LAT/OBL RIGHTon 05-21-2021 [facility] XR Finger - right AP and Lat eral and obliqueon 05-21-2021 IMPRESSION: Mild soft tissue swelling without radiographic evidence of acute osseous abnormality. 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: [facility] Transcribe Date/Time: May 21 2021 12:38P Dictated by : JULITA VELEZ MD This examination was interpreted and the report reviewed and electronically signed by: JULITA VELEZ MD on May 21 2021 12:57PM [facility] DIVISION OF RADIOLOGY * * *Final Report* * * DATE OF EXAM: May 21 2021 11:48AM WOX [id number] - XR DIGIT 3V FRONTAL/LAT/OBL RT / PROCEDURE REASON: Finger pain, right * * * * Physician Interpretation * * * * CLINICAL INDICATION: Finger pain TECHNIQUE: 3 view radiographic study of the right second finger COMPARISON: None FINDINGS: No acute fracture or dislocation. Mild soft tissue swelling surrounding the second proximal interphalangeal joint. DIVISION OF RADIOLOGY Provider, Lise Yusuf [facility] - 05/21/2021 * * *Final Report* * * DATE OF EXAM: May 21 2021 11:48AM WOX [id number] - XR DIGIT 3V FRONTAL/LAT/OBL RT / PROCEDURE REASON: Finger pain, right * * * * Physician Interpretation * * * * CLINICAL INDICATION: Finger pain TECHNIQUE: 3 view radiographic study of the right second finger COMPARISON: None FINDINGS: No acute fracture or dislocation. Mild soft tissue swelling surrounding the second proximal interphalangeal joint. IMPRESSION IMPRESSION: Mild soft tissue swelling without radiographic evidence of acute osseous abnormality. 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: [facility] Transcribe Date/Time: May 21 2021 12:38P Dictated by : JULITA VELEZ MD This examination was interpreted and the report reviewed and electronically signed by: JULITA VELEZ MD on May 21 2021 12:57PM EST [facility] Radiology Study observation (narrative) [facility] XR Finger - right AP and Lat eral and obliqueOrdered By: Ccf Provider on 05-21-2021 [facility] Comp Metabolic Panelon 01-30 Albumin [Mass/Vol] 4.0 g/dL Normal 3.9-4.9 [facility] Reference Lab Comment on above: Performed By: #### C MP, CBC #### [facility] Routine Lab [address] [place], [place] [address] ALP [Catalytic activity/Vol] 79 U/L Normal 34-123 [facility] Reference Lab Comment on above: Performed By: #### C MP, CBC #### [facility] Routine Lab [address] [place], [place] [address] ALT [Catalytic activity/Vol] 15 U/L Normal 7-38 [facility] Reference Lab Comment on above: Performed By: #### C MP, CBC #### [facility] Routine Lab [address] [place], [place] [address] Anion gap [Moles/Vol] 9 mmol/L Normal 9-18 [facility] Reference Lab Comment on above: Performed By: #### C MP, CBC #### [facility] Routine Lab [address] [place], [place] [address] AST [Catalytic activity/Vol] 22 U/L Normal 13-35 [facility] Reference Lab Comment on above: Performed By: #### C MP, CBC #### [facility] Routine Lab [address] [place], [place] [address] Bilirubin [Mass/Vol] mg/dL Low 0.2-1.3 [facility] Reference Lab Comment on above: Performed By: #### C MP, CBC #### [facility] Routine Lab [address] [place], [place] [address] Calcium [Mass/Vol] 9.1 mg/dL Normal 8.5-10.2 [facility] Reference Lab Comment on above: Performed By: #### C MP, CBC #### [facility] Routine Lab [address] [place], [place] [address] Chloride [Moles/Vol] 107 mmol/L High 97-105 [facility] Reference Lab Comment on above: Performed By: #### C MP, CBC #### [facility] Routine Lab [address] [place], [place] [address] CO2 [Moles/Vol] 26 mmol/L Normal 22-30 [facility] Reference Lab Comment on above: Performed By: #### C MP, CBC #### [facility] Routine Lab [address] [place], [place] [address] Creatinine [Mass/Vol] 0.79 mg/dL Normal 0.58-0.96 [facility] Reference Lab Comment on above: Performed By: #### C MP, CBC #### [facility] Routine Lab [address] [place], [place] [address] eGFR- Amer. >60 Normal [facility] Reference Lab Comment on above: Performed By: #### C MP, CBC #### [facility] Routine Lab [address] [place], [place] [address] eGFR-All Other Races >60 Normal [facility] Reference Lab Comment on above: Performed By: #### C MP, CBC #### [facility] Routine Lab [address] [place] [address] Glucose [Mass/Vol] 86 mg/dL Normal 74-99 [facility] Reference Lab Comment on above: Performed By: #### C MP, CBC #### [facility] Routine Lab [address] [place], [place] [address] Potassium [Moles/Vol] 4.5 mmol/L Normal 3.7-5.1 [facility] Reference Lab Comment on above: Performed By: #### C MP, CBC #### [facility] Routine Lab [address] [place], [place] [address] Protein [Mass/Vol] 6.3 g/dL Normal 6.3-8.0 [facility] Reference Lab Comment on above: Performed By: #### C MP, CBC #### [facility] Routine Lab [address] [place], [place] [address] Sodium [Moles/Vol] 142 mmol/L Normal 136-144 [facility] Reference Lab Comment on above: Performed By: #### C MP, CBC #### [facility] Routine Lab [address] [place], [place] [address] Urea nitrogen [Mass/Vol] 18 mg/dL Normal 7-21 [facility] Reference Lab Comment on above: Performed By: #### C MP, CBC #### [facility] Routine Lab [address] [place], [place] [address] CBCon 01-29-2021 Absolute nRBC <0.01 Normal <0.01 [facility] Reference Lab Comment on above: Performed By: #### C MP, CBC #### [facility] Routine Lab [address] [place], [place] [address] Erythrocyte distribution width (RBC) [Ratio] 13.3 % Normal 11.5-15.0 [facility] Reference Lab Comment on above: Performed By: #### C MP, CBC #### [facility] Routine Lab [address] [place], [place] [address] Hematocrit (Bld) [Volume fraction] 39.7 % Normal 36.0-46.0 [facility] Reference Lab Comment on above: Performed By: #### C MP, CBC #### [facility] Routine Lab [address] [place], [place] [address] Hemoglobin (Bld) [Mass/Vol] 13.2 g/dL Normal 11.5-15.5 [facility] Reference Lab Comment on above: Performed By: #### C MP, CBC #### [facility] Routine Lab [address] [place], [place] [address] MCH 30.8 pG Normal 26.0-34.0 [facility] Reference Lab Comment on above: Performed By: #### C MP, CBC #### [facility] Routine Lab [address] [place], [place] [address] MCHC (RBC) [Mass/Vol] 33.2 g/dL Normal 30.5-36.0 [facility] Reference Lab Comment on above: Performed By: #### C MP, CBC #### [facility] Routine Lab [address] [place], [place] [address] MCV (RBC) [Entitic vol] 92.5 fL Normal 80.0-100.0 [facility] Reference Lab Comment on above: Performed By: #### C MP, CBC #### [facility] Routine Lab [address] [place], [place] [address] Platelet mean volume (Bld) [Entitic vol] 11.3 fL Normal 9.0-12.7 [facility] Reference Lab Comment on above: Performed By: #### C MP, CBC #### [facility] Routine Lab [address] [place], [place] [address] Platelets (Bld) [#/Vol] 151 10*3/uL Normal 150-400 [facility] Reference Lab Comment on above: Performed By: #### C MP, CBC #### [facility] Routine Lab [address] [place], [place] [address] RBC (Bld) [#/Vol] 4.29 10*6/uL Normal 3.90-5.20 [facility] Reference Lab Comment on above: Performed By: #### C MP, CBC #### [facility] Routine Lab [address] [place], [place] [address] WBC (Bld) [#/Vol] 6.21 10*3/uL Normal 3.70-11.00 [facility] Reference Lab Comment on above: Performed By: #### C MP, CBC #### [facility] Routine Lab [address] [place], [place] [address] Vital Signs Date Time Vital Sign Value Performing Clinician Facility 09-30-2024 14:45-0400 Body height 175.26 cm [facility] Work Phone: [facility] [place] [facility] 09-30-2024 14:45-0400 Body mass index (BMI) [Ratio] 29.2 kg/m2 [facility] Work Phone: [facility] [place] [facility] 09-30-2024 14:45-0400 Body weight 89.81 kg [facility] Work Phone: [phone] [place] [address] 06-16-2024 10:00-0400 Diastolic blood pressure 88 mm[Hg] [facility] Work Phone: [phone] [place] [address] 06-16-2024 10:00-0400 Heart rate 68 /min [facility] Work Phone: [phone] [place] [address] 06-16-2024 10:00-0400 Respiratory rate 18 /min [facility] Work Phone: [phone] [place] [address] 06-16-2024 10:00-0400 SaO2% (BldA) [Mass fraction] 98 % [facility] Work Phone: [phone] [place] [address] 06-16-2024 10:00-0400 Systolic blood pressure 170 mm[Hg] [facility] Work Phone: [phone] [place] [address] 06-16-2024 06:26-0400 Body mass index (BMI) [Ratio] 28.6 kg/m2 [facility] Work Phone: [phone] [place] [address] 06-16-2024 06:26-0400 Body temperature 97.9 [degF] [facility] Work Phone: [phone] [place] [address] 06-16-2024 06:26-0400 Body weight 88.1 kg [facility] Work Phone: [phone] [place] [address] 05-20-2023 15:03-0400 Body temperature 97.3 [degF] [facility] 05-20-2023 15:03-0400 Diastolic blood pressure 118 mm[Hg] [facility] [place] [facility] 05-20-2023 15:03-0400 Heart rate 107 /min [facility] 05-20-2023 15:03-0400 Respiratory rate 16 /min [facility] 05-20-2023 15:03-0400 SaO2% (BldA) [Mass fraction] 100 % [facility] [place] [facility] 05-20-2023 15:03-0400 Systolic blood pressure 148 mm[Hg] [facility] 05-20-2023 14:20-0400 Body height 175.26 cm [facility] 05-20-2023 14:20-0400 Body mass index (BMI) [Ratio] 30.5 kg/m2 [facility] 05-20-2023 14:20-0400 Body weight 93.89 kg [facility] 05-10-2023 10:39-0400 Body temperature 98.1 [degF] [facility] 05-10-2023 10:39-0400 Diastolic blood pressure 78 mm[Hg] [facility] 05-10-2023 10:39-0400 Heart rate 78 /min [facility] 05-10-2023 10:39-0400 Respiratory rate 16 /min [facility] 05-10-2023 10:39-0400 SaO2% (BldA) [Mass fraction] 97 % [facility] 05-10-2023 10:39-0400 Systolic blood pressure 127 mm[Hg] [facility] 05-10-2023 09:41-0400 Body height 175.26 cm [facility] 05-10-2023 09:41-0400 Body mass index (BMI) [Ratio] 29.7 kg/m2 [facility] 05-10-2023 09:41-0400 Body weight 91.3 kg [facility] 05-09-2023 14:48-0400 Body temperature 98.2 [degF] Renato Montano MD Work Phone: [facility] 05-09-2023 14:48-0400 Body weight 91.6 kg Renato Montano MD Work Phone: [facility] 05-09-2023 14:48-0400 Diastolic blood pressure 76 mm[Hg] Renato Montano MD Work Phone: [facility] 05-09-2023 14:48-0400 Heart rate 63 /min Renato Montano MD Work Phone: [facility] 05-09-2023 14:48-0400 Respiratory rate 18 /min Renato Montano MD Work Phone: [facility] 05-09-2023 14:48-0400 SaO2% (BldA) [Mass fraction] 94 % Renato Montano MD Work Phone: [facility] 05-09-2023 14:48-0400 Systolic blood pressure 118 mm[Hg] Renato Montano MD Work Phone: [facility] 04-12-2023 13:19-0500 Body temperature 97.9 [degF] [facility] 04-12-2023 13:19-0500 Diastolic blood pressure 84 mm[Hg] [facility] 04-12-2023 13:19-0500 Heart rate 95 /min [facility] 04-12-2023 13:19-0500 Respiratory rate 18 /min [facility] 04-12-2023 13:19-0500 SaO2% (BldA) [Mass fraction] 99 % [facility] 04-12-2023 13:19-0500 Systolic blood pressure 138 mm[Hg] [facility] 04-12-2023 11:31-0500 Body height 175.26 cm [facility] 04-12-2023 11:31-0500 Body mass index (BMI) [Ratio] 30.3 kg/m2 [facility] 04-12-2023 11:31-0500 Body weight 93.16 kg [facility] 09-17-2022 13:20-0400 Body height 175.3 cm Divina Key MD Work Phone: [facility] 09-17-2022 13:20-0400 Body temperature 97.7 [degF] Divina Key MD Work Phone: [facility] 09-17-2022 13:20-0400 Body weight 95.94 kg Divina Key MD Work Phone: [facility] 09-17-2022 13:20-0400 Diastolic blood pressure 96 mm[Hg] Divina Key MD Work Phone: [facility] 09-17-2022 13:20-0400 Heart rate 81 /min Divina Key MD Work Phone: [facility] 09-17-2022 13:20-0400 Systolic blood pressure 136 mm[Hg] Divina Key MD Work Phone: [facility] 08-21-2022 12:16-0400 Body temperature 99.19 [degF] Reyes Roy MD Work Phone: [facility] 08-21-2022 12:16-0400 Diastolic blood pressure 85 mm[Hg] Reyes Roy MD Work Phone: [facility] 08-21-2022 12:16-0400 Heart rate 72 /min Reyes Roy MD Work Phone: [facility] 08-21-2022 12:16-0400 Systolic blood pressure 130 mm[Hg] Reyes Roy MD Work Phone: [facility] 07-23-2022 10:38-0400 Body temperature 98.4 [degF] Marcelina Alvarez PT Work Phone: [facility] 07-23-2022 10:38-0400 Diastolic blood pressure 88 mm[Hg] Marcelina Loweox PT Work Phone: [facility] 07-23-2022 10:38-0400 Heart rate 69 /min Marcelina Loweox PT Work Phone: [facility] 07-23-2022 10:38-0400 Respiratory rate 16 /min Marcelina Loweox PT Work Phone: [facility] 07-23-2022 10:38-0400 SaO2% (BldA) [Mass fraction] 99 % Marcelina Loweox PT Work Phone: [facility] 07-23-2022 10:38-0400 Systolic blood pressure 124 mm[Hg] Marcelina Loweox PT Work Phone: [facility] 07-22-2022 14:22-0400 Body temperature 97.59 [degF] Meeta Lety ASSURANCE SERVICES MANAGER HEALTH CARE Work Phone: [facility] 07-22-2022 14:22-0400 Diastolic blood pressure 84 mm[Hg] Meeta Lety ASSURANCE SERVICES MANAGER HEALTH CARE Work Phone: [facility] 07-22-2022 14:22-0400 Heart rate 77 /min Meeta Lety ASSURANCE SERVICES MANAGER HEALTH CARE Work Phone: [facility] 07-22-2022 14:22-0400 Respiratory rate 18 /min Meeta Lety ASSURANCE SERVICES MANAGER HEALTH CARE Work Phone: [facility] 07-22-2022 14:22-0400 SaO2% (BldA) [Mass fraction] 99 % Meeta Lety ASSURANCE SERVICES MANAGER HEALTH CARE Work Phone: [facility] 07-22-2022 14:22-0400 Systolic blood pressure 124 mm[Hg] Meeta Lety ASSURANCE SERVICES MANAGER HEALTH CARE Work Phone: [facility] 07-22-2022 13:48-0400 Heart rate 88 /min Caty Bousfield OT/L Work Phone: [facility] 07-22-2022 13:48-0400 SaO2% (BldA) [Mass fraction] 99 % Caty Bousfield OT/L Work Phone: [facility] 07-22-2022 13:13-0400 Body temperature 97.9 [degF] Caty Bousfield OT/L Work Phone: [facility] 07-22-2022 13:13-0400 Diastolic blood pressure 80 mm[Hg] Caty Bousfield OT/L Work Phone: [facility] 07-22-2022 13:13-0400 Systolic blood pressure 120 mm[Hg] Caty Bousfield OT/L Work Phone: [facility] 07-07-2022 12:27-0400 Body temperature 98.8 [degF] Troy Giffels PT Work Phone: [facility] 07-07-2022 12:27-0400 Diastolic blood pressure 70 mm[Hg] Troy Giffels PT Work Phone: [facility] 07-07-2022 12:27-0400 Heart rate 63 /min Troy Giffels PT Work Phone: [facility] 07-07-2022 12:27-0400 Respiratory rate 18 /min Troy Giffels PT Work Phone: [facility] 07-07-2022 12:27-0400 SaO2% (BldA) [Mass fraction] 94 % Troy Giffels PT Work Phone: [facility] 07-07-2022 12:27-0400 Systolic blood pressure 100 mm[Hg] Troy Giffels PT Work Phone: [facility] 06-04-2022 15:25-0400 Body height 175.3 cm Pacc 1 Work Phone: [facility] 06-04-2022 15:25-0400 Body temperature 99.7 [degF] Pacc 1 Work Phone: [facility] 06-04-2022 15:25-0400 Body weight 94.8 kg Pacc 1 Work Phone: [facility] 06-04-2022 15:25-0400 Diastolic blood pressure 84 mm[Hg] Pacc 1 Work Phone: [facility] 06-04-2022 15:25-0400 Heart rate 85 /min Pacc 1 Work Phone: [facility] 06-04-2022 15:25-0400 Respiratory rate 16 /min Pacc 1 Work Phone: [facility] 06-04-2022 15:25-0400 SaO2% (BldA) [Mass fraction] 94 % Pacc 1 Work Phone: [facility] 06-04-2022 15:25-0400 Systolic blood pressure 120 mm[Hg] Pacc 1 Work Phone: [facility] 06-02-2022 15:06-0400 Diastolic blood pressure 86 mm[Hg] Reyes Roy MD Work Phone: [facility] 06-02-2022 15:06-0400 Heart rate 84 /min Reyes Roy MD Work Phone: [facility] 06-02-2022 15:06-0400 Systolic blood pressure 138 mm[Hg] Reyes Roy MD Work Phone: [facility] 04-29-2022 10:00-0500 Diastolic blood pressure 84 mm[Hg] Dank Golias PT Work Phone: [facility] 04-29-2022 10:00-0500 Systolic blood pressure 122 mm[Hg] Dank Golias PT Work Phone: [facility] 04-23-2022 09:05-0500 Body height 175.3 cm Yovany Godfray PA-C Work Phone: [facility] 04-23-2022 09:05-0500 Body weight 92.08 kg Yovany Godfray PA-C Work Phone: [facility] 04-23-2022 09:05-0500 Diastolic blood pressure 87 mm[Hg] Yovany Godfray PA-C Work Phone: [facility] 04-23-2022 09:05-0500 Heart rate 83 /min Yovany Godfray PA-C Work Phone: [facility] 04-23-2022 09:05-0500 Systolic blood pressure 137 mm[Hg] Yovany Godfray PA-C Work Phone: [facility] 03-17-2022 12:56-0500 Body temperature 96.49 [degF] Divina Key MD Work Phone: [facility] 03-17-2022 12:56-0500 Body weight 90.27 kg Divina Key MD Work Phone: [facility] 03-17-2022 12:56-0500 Diastolic blood pressure 76 mm[Hg] Divina Key MD Work Phone: [facility] 03-17-2022 12:56-0500 Heart rate 76 /min Divina Key MD Work Phone: [facility] 03-17-2022 12:56-0500 Systolic blood pressure 112 mm[Hg] Divina Key MD Work Phone: [facility] 03-04-2022 12:22-0500 Body height 175.26 cm [facility] Work Phone: 03-04-2022 12:22-0500 Body mass index (BMI) [Ratio] 29.5 kg/m2 [facility] Work Phone: 03-04-2022 12:22-0500 Body temperature 97.9 [degF] [facility] Work Phone: 03-04-2022 12:22-0500 Body weight 90.71 kg [facility] Work Phone: 03-04-2022 12:22-0500 Diastolic blood pressure 110 mm[Hg] [facility] Work Phone: 03-04-2022 12:22-0500 Heart rate 85 /min [facility] Work Phone: 03-04-2022 12:22-0500 Respiratory rate 16 /min [facility] Work Phone: 03-04-2022 12:22-0500 SaO2% (BldA) [Mass fraction] 99 % [facility] Work Phone: 03-04-2022 12:22-0500 Systolic blood pressure 139 mm[Hg] [facility] Work Phone: 12-03-2021 11:01-0400 Diastolic blood pressure 91 mm[Hg] [facility] Work Phone: 12-03-2021 11:01-0400 SaO2% (BldA) [Mass fraction] 100 % [facility] Work Phone: 12-03-2021 11:01-0400 Systolic blood pressure 130 mm[Hg] [facility] Work Phone: 12-03-2021 09:36-0400 Body height 175.26 cm [facility] Work Phone: 12-03-2021 09:36-0400 Body mass index (BMI) [Ratio] 29.3 kg/m2 [facility] Work Phone: 12-03-2021 09:36-0400 Body temperature 97.2 [degF] [facility] Work Phone: 12-03-2021 09:36-0400 Body weight 90.2 kg [facility] Work Phone: 12-03-2021 09:36-0400 Heart rate 85 /min [facility] Work Phone: 12-03-2021 09:36-0400 Respiratory rate 14 /min [facility] Work Phone: 05-23-2021 11:50-0400 Diastolic blood pressure 80 mm[Hg] Mckinley Mendez MD Work Phone: [facility] 05-23-2021 11:50-0400 Heart rate 68 /min Mckinley Mendez MD Work Phone: [facility] 05-23-2021 11:50-0400 Respiratory rate 16 /min Mckinley Mendez MD Work Phone: [facility] 05-23-2021 11:50-0400 SaO2% (BldA) [Mass fraction] 100 % Mckinley Mendez MD Work Phone: [facility] 05-23-2021 11:50-0400 Systolic blood pressure 120 mm[Hg] Mckinley Mendez MD Work Phone: [facility] 05-23-2021 11:30-0400 Body temperature 97.81 [degF] Mckinley Mendez MD Work Phone: [facility] 05-23-2021 10:38-0400 Body height 175.3 cm Mckinley Mendez MD Work Phone: [facility] 05-23-2021 10:38-0400 Body weight 84.82 kg Mckinley Mendez MD Work Phone: [facility] 05-21-2021 11:03-0400 Body temperature 98.01 [degF] Tiera Athy PA-C Work Phone: [facility] 05-21-2021 11:03-0400 Body weight 84.55 kg Tiera Athy PA-C Work Phone: [facility] 05-21-2021 11:03-0400 Diastolic blood pressure 68 mm[Hg] Tiera Athy PA-C Work Phone: [facility] 05-21-2021 11:03-0400 Heart rate 54 /min Tiera Athy PA-C Work Phone: [facility] 05-21-2021 11:03-0400 Respiratory rate 18 /min Tiera Athy PA-C Work Phone: [facility] 05-21-2021 11:03-0400 SaO2% (BldA) [Mass fraction] 97 % Tiera Athy PA-C Work Phone: [facility] 05-21-2021 11:03-0400 Systolic blood pressure 122 mm[Hg] Tiera Athy PA-C Work Phone: [facility] Encounters Encounter Date Encounter Type Care Provider Facility Start: 11-01-2024 ambulatory Jessica Mookie Facility:[facility] Start: 09-30-2024 End: 09-30-[address] Abel Atkins MD -[facility] Start: 09-30-2024 End: 09-30-2024 ambulatory [facility] Work Phone: -[facility] Start: 06-16-2024 End: 06-16-2024 Emergency department patient visit Dr. Yung Wright DO -Emergency Department Work Phone: Start: 03-28-2024 End: 03-28-2024 Emergency department patient visit Henry Ventura Facility:[facility] Start: 03-06-2024 End: 03-06-2024 Emergency department patient visit Remus Ungur Facility:[facility] Start: 05-20-2023 End: 05-20-2023 Emergency department patient visit [facility] Work Phone: Start: 05-10-2023 End: 05-10-2023 Emergency department patient visit [facility] Work Phone: Start: 05-09-2023 End: 05-09-2023 ambulatory TONYA ARRIAGA Facility:[facility] Start: 05-09-2023 End: 05-09-2023 Patient encounter procedure Renato Montano MD Work Phone: [facility] Comment on above: Toothache (Primary D x) Start: 04-12-2023 End: 04-12-2023 Emergency department patient visit [facility] Work Phone: Start: 11-27-2022 End: 11-27-2022 ambulatory TONYA ARRIAGA Facility:[facility] Start: 11-27-2022 End: 11-27-2022 ambulatory Reyes Roy MD Work Phone: Neurosurgery Comment on above: Cervical stenosis of spine (Primary Dx) Start: 11-27-2022 End: 11-27-2022 Telemedicine consultation with patient Reyes Roy MD [facility] Start: 11-25-2022 End: 11-25-2022 ambulatory REYES ROY Facility:[facility] Start: 11-25-2022 End: 11-25-2022 Subsequent hospital visit by physician [facility] Work Phone: Radiology Comment on above: Cervical myelopathy (HCC) [G95.9] Start: 09-17-2022 End: 09-17-2022 ambulatory PATOMPONG UNGPRASERT Facility:[facility] Start: 09-17-2022 End: 09-17-2022 Patient encounter procedure Divina Key MD Work Phone: Rheumatology Comment on above: Fibromyalgia (Primar y Dx); Cervical myelopathy (HCC) Start: 08-22-2022 Telephone encounter Reyes Gonzalez i, MD Work Phone: Neurosurgery Comment on above: Patient Question Start: 08-21-2022 End: 08-21-2022 ambulatory TONYA ARRIAGA Facility:[facility] Start: 08-21-2022 End: 08-21-2022 Patient encounter procedure Reyes Roy MD Work Phone: Neurosurgery Comment on above: Cervical myelopathy (HCC) (Primary Dx) Start: 07-23-2022 End: 07-23-2022 Home visit Marcelina Alvarez PT Work Phone: [facility] Comment on above: PT AGENCY DC W VISIT Start: 07-22-2022 End: 07-22-2022 Home visit Meeta Lety [employer]URANCE SERVICES MANAGER HEALTH CARE Work Phone: [facility] Comment on above: ASSURANCE SERVICES MANAGER HEALTH CARE ROUTINE OT DISC DC W VISIT Start: 07-22-2022 End: 07-22-2022 ambulatory REYES MANUELA Facility:[facility] Start: 07-22-2022 End: 07-22-2022 Nursing evaluation of patient and report Carolina Soliz RN Neurosurgery Comment on above: Presence of surgical incision (Primary Dx) Start: 07-07-2022 End: 07-07-2022 Home visit Troy Rodriguez PT Work Phone: [facility] Comment on above: PT SOC Start: 07-04-2022 End: 07-05-2022 Evaluation and management of inpatient REYES MANUELA Facility:[facility] Start: 07-03-2022 Telephone encounter Carolina Soliz RN Neurosurgery Comment on above: preop info Start: 06-26-2022 Telephone encounter Reyes Gonzalez i, MD Work Phone: Neurosurgery Comment on above: Forms Start: 06-12-2022 Admission to [facility] Carolina Soliz RN Neurosurgery Comment on above: surgery information Start: 06-12-2022 E-mail encounter noemi m caregiver Carolina Soliz RN [facility] Start: 06-10-2022 End: 06-10-2022 ambulatory REYES MANUELA Facility:[facility] Start: 06-10-2022 End: 06-10-2022 Subsequent hospital visit by physician [facility] Work Phone: Cat Scan Comment on above: Cervical myelopathy (HCC) [G95.9] Start: 06-06-2022 Telephone encounter Yovany magallanes PA-C Work Phone: [facility] Comment on above: Patient Update Start: 06-04-2022 Encounter for other preprocedural examination TONYA ARRIAGA [facility] Start: 06-04-2022 End: 06-04-2022 Admission to establishment Pacc Tri[facility] 1 Work Phone: [facility] Start: 06-04-2022 End: 06-05-2022 ambulatory [facility] Tripp 1 Work Phone: Pre Anesthesia Comment on above: Pre-operative examin ation (Primary Dx); Atrial paroxysmal tachycardia (HCC); Anxiety attack; Current smoker; Gastroesophageal reflux disease, unspecified whether esophagitis present; Class 1 obesity due to excess calories without serious comorbidity with body mass index (BMI) of 30.0 to 30.9 in adult Start: 06-04-2022 End: 06-04-2022 Preprocedural examination done Pac [place] [facility] Work Phone: Pre Anesthesia Start: 06-03-2022 Telephone encounter Carolina Soliz RN Neurosurgery Comment on above: surgery scheduling Appointment Start: 06-02-2022 End: 06-02-2022 ambulatory TONYA ARRIAGA Facility:[facility] Start: 06-02-2022 End: 06-02-2022 Patient encounter procedure Reyes Roy MD Work Phone: Neurosurgery Comment on above: Cervical myelopathy (HCC) (Primary Dx); Cervical stenosis of spine Start: 05-27-2022 End: 05-27-2022 ambulatory TONYA ARRIAGA Facility:[facility] Start: 05-21-2022 End: 05-21-2022 ambulatory TONYA ARRIAGA Facility:[facility] Start: 04-29-2022 End: 04-29-2022 ambulatory Dank Springer PT Work Phone: [facility] Comment on above: 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; Pain in both upper extremities; Neck pain; Imbalance; Impaired dexterity; Acute back pain with sciatica, right; Cervicalgia Start: 04-23-2022 End: 04-23-2022 Patient encounter procedure Yovany Ahn PA-C Work Phone: [facility] Comment on above: 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 (Primary Dx); Pain in both upper extremities; Neck pain; Imbalance; Bladder dysfunction; Impaired dexterity Start: 03-17-2022 End: 03-17-2022 Subsequent hospital visit by physician Tim [facility] Work Phone: Radiology Comment on above: Multiple joint pain [M25.50] Start: 03-17-2022 End: 03-17-2022 Patient encounter procedure Divina Key MD Work Phone: Rheumatology Comment on above: Multiple joint pain (Primary Dx); Chronic midline low back pain with bilateral sciatica; Neck pain; Positive JONY (antinuclear antibody); Numbness and tingling of both feet Start: 03-04-2022 End: 03-04-2022 Emergency department patient visit [facility]Emergency Department Start: 12-24-2021 End: 12-24-2021 Patient encounter procedure Rick Gomez MD Work Phone: Ophthalmology Comment on above: Progressive peripher al pterygium of right eye (Primary Dx); Dry eye syndrome of both eyes Start: 12-03-2021 End: 12-03-2021 Emergency department patient visit [facility]Emergency Department Start: 11-27-2021 End: 11-27-2021 Patient encounter procedure [facility]-Nuclear Medicine, [facility] Start: 11-11-2021 End: 11-11-2021 ambulatory [facility] Work Phone: Start: 11-11-2021 End: 11-11-2021 Patient encounter procedure [facility]-Ultrasound, [facility] Start: 10-25-2021 End: 10-25-2021 ambulatory [facility] Work Phone: Start: 10-25-2021 End: 10-25-2021 Patient encounter procedure [facility]-Ultrasound, [facility] Start: 10-17-2021 End: 10-17-2021 ambulatory [facility] Work Phone: Start: 10-17-2021 End: 10-17-2021 Patient encounter procedure [facility]-Laboratory Start: 09-13-2021 End: 09-13-2021 Patient encounter procedure [facility] Start: 2021 End: 2021 Patient encounter procedure [facility] Start: 08-29-2021 End: 08-29-2021 Patient encounter procedure [facility]Labor[facility] Start: 08-16-2021 Refill Lauren Esquivel APR N.STUDENT SPECIALIST Work Phone: Gastroenterology Comment on above: Refill Request Start: 06-03-2021 ambulatory Lauren Esquivel APR N.STUDENT SPECIALIST Work Phone: Gastroenterology Comment on above: celiac screening Start: 06-03-2021 Telephone encounter Lauren Esquivel [employer] MECHANIC.STUDENT SPECIALIST Work Phone: Gastroenterology Comment on above: Results Start: 05-31-2021 ambulatory Lauren Esquivel APR N.STUDENT SPECIALIST Work Phone: Gastroenterology Comment on above: Question regarding C BC + DIFF Start: 05-31-2021 Telephone encounter Lauren Esquivel AUTO GARAGE MECHANIC.STUDENT SPECIALIST Work Phone: Gastroenterology Comment on above: Orders Start: 05-29-2021 Telephone encounter Lauren Esquivel AUTO GARAGE MECHANIC.STUDENT SPECIALIST Work Phone: Gastroenterology Comment on above: Results Start: 05-23-2021 End: 05-23-2021 Subsequent hospital visit by physician Mckinley Mendez MD Work Phone: Ambulatory Surgery Comment on above: Heartburn [R12] Start: 05-21-2021 Telephone encounter Tiera R Katia y PA-C Work Phone: [facility] Comment on above: Results Start: 05-21-2021 End: 05-21-2021 Subsequent hospital visit by physician Tim [facility] Work Phone: Radiology Comment on above: Finger pain, right [ M79.644] Start: 05-21-2021 End: 05-21-2021 Patient encounter procedure Tiera Waddell PA-C Work Phone: [facility] Comment on above: Finger pain, right ( Primary Dx) Procedures Date Procedure Procedure Detail Performing Clinician Start: 06-16-2024 Urnls dip stick/tablet reagent auto microscopy [facility] Work Phone: Start: 06-16-2024 Computed tomography of abdomen and pelvis with intravenous contrast [facility] Work Phone: Start: 06-16-2024 Estimated creatinine clearance [facility] Work Phone: Start: 11-25-2022 Radex spine cervical 2 or 3 views Reyes Roy MD Work Phone: Start: 06-10-2022 Ct cervical spine w/o contrast material Reyes Roy MD Work Phone: Start: 06-04-2022 Antibody screen TONYA CORINA Comment on above: Order Comment: Specimen Type: BLOOD SPEC IMEN Ordering Facility: [facility] Address: [address] [place], [place] [id number] Performed By: #### [id number] #### [facility] [id number] [address] [place] [address] [place] Start: 05-27-2022 Follow-up visit Follow Up YOVANY AHN Start: 03-17-2022 End: 03-17-2022 Radex spine cervical 4 or 5 views Karla Key MD Work Phone: Start: 03-04-2022 X-ray of both feet Start: 12-03-2021 Pelvis X-ray Start: 12-03-2021 Plain X-ray of shoulder Start: 12-03-2021 X-ray of cervical spine Start: 12-03-2021 X-ray of lumbar spine, two or three views Start: 11-27-2021 Radionuclide thyroid imaging Start: 11-11-2021 US scan of thyroid Start: 10-25-2021 Ultrasonography of thyroid and parathyroid Start: 2021 Radiography of nasal sinuses Start: 05-23-2021 Esophagogastroduodenoscopy transoral diagnostic Lauren Esquivel APRN.CNP Work Phone: Start: 05-21-2021 Radex fingr minimum 2 views Tiera Waddell PA-C Work Phone: H/O: surgery Hx of neck surgery Plan of Treatment Date Care Activity Detail Author Start: 09-30-2024 X-ray of lumbosacral spine L/S Spine Min 4 Views [facility] Start: 09-30-2024 XR Spine Lumbar and Sacrum GE 4 Views [facility] Start: 06-16-2024 [facility] Start: 06-16-2024 [facility] Start: 10-25-2023 Covid-19 Vaccine ( season) Covid-19 Vaccine () [facility] Start: 10-25-2023 Influenza vaccination Influenza Vacc ine (#1) [facility] Start: 2023 Screening for malign ant neoplasm of breast Mammogram Screening [facility] Start: 05-20-2023 [facility] Start: 05-10-2023 [facility] Start: 02-23-2023 Depression Assessment Depression Ass essment [facility] Start: 11-21-2022 End: 09-20-2023 Radex spine cervical 2 or 3 views XR CERV GENERAL 2V AP/LAT Radiology Routine Cervical myelopathy (HCC) Expected: 11/21/2022 (Approximate), Expires: 09/20/2023 [facility] Work Phone: Comment on above: Expected: 11/21/2022 (Approximate), Expires: 09/20/2023 Start: 10-24-2022 Covid-19 Vaccine ( season) Covid-19 Vaccine () [facility] Start: 10-24-2022 Influenza vaccination C [facility] Start: 03-17-2022 End: 05-17-2022 Alanine aminotransferase [Enzymatic activity/volume] in Serum or Plasma [facility] Work Phone: Comment on above: Expected: 03/17/2022 , Expires: 05/17/2022 Start: 03-17-2022 End: 05-17-2022 C reactive protein [Mass/volume] in Serum or Plasma [facility] Work Phone: Comment on above: Expected: 03/17/2022 , Expires: 05/17/2022 Start: 03-17-2022 End: 05-17-2022 CREATININE BLD [facility] Work Phone: Comment on above: Expected: 03/17/2022 , Expires: 05/17/2022 Start: 03-17-2022 End: 05-17-2022 Cyclic citrullinated peptide IgG Ab [Units/volume] in Serum or Plasma [facility] Work Phone: Comment on above: Expected: 03/17/2022 , Expires: 05/17/2022 Start: 03-17-2022 End: 05-17-2022 Extractable nuclear Ab panel - Serum [facility] Work Phone: Comment on above: Expected: 03/17/2022 , Expires: 05/17/2022 Start: 03-17-2022 End: 05-17-2022 Nuclear Ab [Presence] in Serum by Immunoassay [facility] Work Phone: Comment on above: Expected: 03/17/2022 , Expires: 05/17/2022 Start: 03-17-2022 End: 05-17-2022 Rheumatoid factor [Units/volume] in Serum or Plasma [facility] Work Phone: Comment on above: Expected: 03/17/2022 , Expires: 05/17/2022 Start: 03-17-2022 End: 05-17-2022 Urea nitrogen [Mass/volume] in Serum or Plasma [facility] Work Phone: Comment on above: Expected: 03/17/2022 , Expires: 05/17/2022 Start: 02-23-2022 DEPRESSION ASSESSMENT DEPRESSION ASS ESSMENT [facility] Start: 10-24-2021 Influenza vaccination [facility] Start: 10-17-2021 Antinuclear antibodies jony ANTINUCLE AR ANTIBODIES [facility] Work Phone: Start: 10-17-2021 Collection venous bl ood venipuncture ROUTINE VENIPUNCTURE [facility] Work Phone: Start: 05-31-2021 End: 07-31-2021 Helicobacter pylori Ag [Presence] in Stool by Immunoassay [facility] Work Phone: Comment on above: Expected: 05/31/2021 , Expires: 07/31/2021 Start: 05-29-2021 End: 07-29-2021 CELIAC SCREEN WITH REFLEX CELIAC SCREEN WITH REFLEX Lab Routine Nausea Epigastric pain Expected: 05/29/2021, Expires: 07/29/2021 [facility] Work Phone: Comment on above: Expected: 05/29/2021 , Expires: 07/29/2021 Start: 02-23-2021 DEPRESSION ASSESSMENT DEPRESSION ASS ESSMENT [facility] Start: 10-24-2020 Influenza vaccination INFLUENZA (#1) [facility] Start: 09-04-2013 HPV TESTING HPV TESTING [facility] Start: 09-04-2013 Screening for malign ant neoplasm of cervix HPV Testing [facility] Start: 09-04-2004 PAP TESTING PAP TESTING [facility] Start: 09-04-2004 Screening for malign ant neoplasm of cervix [facility] Start: 09-04-2002 Hepatitis B Vaccine (1 of 3 - 19+ 3-dose series) Hepatitis B Vaccine (1 of 3 - 19+ 3-dose series) [facility] Start: 09-04-2002 Urine microalbumin profile [facility] Start: 09-04-2001 Depression Screening Depression Scre ening [facility] Start: 09-04-2001 HEPATITIS C SCREENING HEPATITIS C [facility] Start: 09-04-2001 Hepatitis C screening Hepatitis C [facility] Start: 09-04-2001 HIV SCREENING HIV SCREENING [facility] Start: 09-04-2001 HIV screening HIV Screening [facility] Start: 1995 Adult depression scr eening assessment DEPRESSION SCREENING [facility] Start: 09-04-1989 PNEUMOCOCCAL (1 - PCV) PNEUMOCOCCAL (1 - PCV) [facility] Start: 09-04-1989 Pneumococcal vaccination [facility] Start: 09-04-1988 COVID-19 VACCINE (#1) COVID-19 VACCI NE (#1) [facility] Start: 09-04-1988 COVID-19 VACCINE (1) COVID-19 VACCIN E (1) [facility] Start: 03-07-1984 COVID-19 VACCINE (#1) COVID-19 VACCI NE (#1) [facility] Start: 1983 HEPATITIS B (1 of 3 - 3-dose series) HEPATITIS B (1 of 3 - 3-dose series) [facility] Start: 1983 Hepatitis B Vaccine (1 of 3 - 3-dose series) Hepatitis B Vaccine (1 of 3 - 3-dose series) [facility] End: 06-05-2023 ECG COMPLETE ECG COMPLETE ECG Routine Pre-operative examination 1 Occurrences starting 06/04/2022 until 06/05/2023 [facility] Work Phone: Comment on above: 1 Occurrences starti ng 06/04/2022 until 06/05/2023 End: 05-23-2023 Mri spinal canal cervical w/o contrast matrl MRI CERVICAL SPINE WO IVCON Radiology Routine Pain in both upper extremities Neck pain Imbalance Bladder dysfunction Impaired dexterity 1 Occurrences starting 04/23/2022 until 05/23/2023 [facility] Work Phone: Comment on above: 1 Occurrences starti ng 04/23/2022 until 05/23/2023 End: 05-23-2023 Mri spinal canal lumbar w/o contrast material MRI LUMBAR SPINE WO IVCON Radiology Routine Chronic bilateral low back pain with right-sided sciatica Bladder dysfunction 1 Occurrences starting 04/23/2022 until 05/23/2023 [facility] Work Phone: Comment on above: 1 Occurrences starti ng 04/23/2022 until 05/23/2023 Nuclear Ab [Presence ] in Serum [facility] Work Phone: Patient Education [facility] Work Phone: Patient referral [facility] Work Phone: PT PLAN OF CARE CERTIFICATION PT PLAN OF CARE CERTIFICATION Procedures Routine Chronic bilateral low back pain with right-sided sciatica Pain in both upper extremities Neck pain Imbalance Impaired dexterity Acute back pain with sciatica, right Cervicalgia Ordered: 04/29/2022 [facility] Work Phone: Comment on above: Ordered: 04/29/2022 SURGICAL PATHOLOGY [facility] Work Phone: Comment on above: Release Upon Orderin g for 1 Occurrences starting 05/23/2021, 1 completed [facility] Payers Date Payer Category Payer Unknown [id number] 2024 Unknown [id number] 2024 Self-pay [id number] 2018 Medicaid [employer] [id number] 2018-Present [phone] [address] [place] [address] Medicaid [id number] 2018 Medicaid [id number] 2016 Medicaid [id number] 2016 Unknown [id number] Unknown [id number] Unknown [id number] Unknown [id number] Unknown [id number] Unknown [id number] Unknown [id number] Unknown [id number] Social History Date Type Detail Facility Start: 10-05-2018 End: 09-30-2024 Tobacco smoking status NHIS Smokes tobacco daily [facility] Start: 10-05-2018 End: 12-24-2021 Tobacco use and exposure Smokeless tobacco non-user [facility] Start: 05-21-2021 End: 12-24-2021 Alcohol intake Current drinker of alcohol (finding) [facility] Start: 1985 Sex Assigned At Female C [facility] Start: 05-11-2021 End: 05-23-2021 Exposure to SARS-CoV-2 (event) Not sure [facility] Work Phone: Start: 02-22-2021 End: 05-20-2023 Tobacco smoking status DCIS Unknown if ever smoked [facility] Start: 07-24-2019 Occasional [facility] Start: 01-06-2019 None [facility] Start: 07-24-2019 Spouse/ Signif icant Other [facility] Start: 06-27-2020 Cigarettes [facility] History of tobacco use Cigarette Smoker C [facility] Start: 01-29-2020 End: 12-24-2021 Cigarettes smoked current (pack per day) - Reported 1 [facility] Start: 06-04-2022 Alcohol Comment occasionally [facility] Start: 01-29-2020 End: 09-17-2022 Tobacco use panel [facility] Adult Depression Screening Assessment 2 [facility] Start: 01-29-2021 Gender identity Identifies as female gender (finding) [facility] Start: 01-29-2021 Sexual orientation Bisexual (finding ) [facility] Medical Equipment Procedure Code Equipment Code Equipment Origin al Text Equipment Identifier Dates Grft I-Factor Pe Putty 1cc - [id number] Start: 07-04-2022 Prowers Plate, 1 Level, Sz 18mm [id number] Start: 07-04-2022 Screw Bn 4mm 14m m Prowers Spnl - [id number] Start: 07-04-2022 Spacer Avs 4d 7m m Spinal Bone Plug [id number] Start: 07-04-2022 Mental Status Date Assessment Result Facility 04-12-2023 Cognitive function Level Of Cons ciousness Awake;Alert;Appropriate [facility] Work Phone: Clinical Notes 05-21-2021 to 05-20-2023 Note Date & Type Note Facility 05-20-2023 Discharge summary Note Date/Time May 20, 2023 2:55pm [facility] Medical Records Department [address] [place] [address] Emergency Department Summary 05/20/23 MR#: [id number] Acct: [id number] Name: TAMMY ANNA Rep #:[id number] : [id number] 37 From: Lance Betancourt MD PCP: [facility] atus:[facility] ER Location: ED HPI History of Present Illness Chief Complaint: Lower Extremity Injury Informant: patient Onset/Context/Timing Onset: Today Context: Sudden Onset Timing: Continuous Quality: Sharp Location: Buttock and Right Leg Current Severity: Moderate Maximum Severity: Moderate Worsened by: improves with Movement Relieved by: Nothing Associated Symptoms Associated Symptoms: Radiation to Right Leg; Negative for Numbness, Tingling, Radiation to Left Leg, Fever, Abdominal Pain, Dysuria, Unable to Ambulate, Unable to Transfer, Urinary Retention, Urinary Incontinence, Constipation or Fecal Incontinence Narrative Narrative: 37-year-old female has prior C5 neck surgery. Today she was at work and she forgot to check out someone's bagels and she went to run it to take to them and she felt a pop and had pain in her right buttocks going down her right leg. Shehas had a history of sciatica before. No prior lumbar surgery. No weakness or numbness. No incontinence. Prior similar symptoms: Yes Recent Illness/Hospitalization: No PFSH [facility] Medical History Chronic neck and back pain Costochondritis, acute GERD (gastroesophageal reflux disease) Shoulder pain Home Medications cyclobenzaprine 10 mg tablet 10 mg PO TID PRN Muscle Spasm #20 TABLETS 12/03/21 [Rx Last Taken Unknown] naproxen 500 mg tablet (Naprosyn) 500 mg PO BID PRN pain #20 tabs 05/10/23 [Rx Last Taken Unknown] oxycodone-acetaminophen 5 mg-325 mg tablet (Percocet) 1 tab PO Q4H PRN pain 3 days #12 tabs 05/20/23 [Rx Last Taken Unknown] Allergy/AdvReac Type Severity Reaction Status Date / Time Penicillins Allergy Anaphylaxis Verified 05/20/23 14:21 Family History Other Hypertension Surgical History Hx of section S/P spinal surgery Social History Smoking Status: Current every day smoker tobacco type: cigarettes ROS ROS ED ROS Narrative Denies recent illness. Review of Systems ROS Unobtainable: Denies due to encephalopathy Constitutional Constitutional ED: Denies chills or fever(s) Eyes Eyes: Denies blurry vision or change in vision ENT ENT ED: Denies ear pain, rhinorrhea or sore throat Cardiovascular Cardiovascular: Denies chest pain, palpitations or racing heartbeat Respiratory/Chest Respiratory/Chest: Denies dyspnea or dyspnea on exertion Gastrointestinal Gastrointestinal: Denies abdominal pain Genitourinary Genitourinary ED: Denies dysuria or hematuria Musculoskeletal Musculoskeletal: Reports back pain; Denies arthralgias, myalgias or neck pain Integumentary Denies abscess or Abrasions Neurologic Neurologic: Denies headache(s) Psychiatric Psychiatric: Denies anxiety or depression Endocrine Endocrinology: Denies cold intolerance Hematologic/Lymphatic Hematologic/Lymphatic: Denies easy bleeding, easy bruising or lymphadenopathy Allergic/Immunologic Allergic/Immunologic ED: Denies mouth swelling, tongue swelling or urticaria EXAM Physical Exam Narrative Exam Narrative: Well-appearing 37-year-old female. Standing upright leaning over the bed. Vital signs are stable afebrile. Her initial blood pressure is elevated I suspect secondary to pain. H EENT exam unremarkable. Neck nontender. Lungs clear. Heart regular rhythm rate about 105 no murmur. Chest wall and ribs nontender. Abdomen soft nontender. Moving all 4 extremities. Neurovascular intact. Her thoracic and lumbar spine are nontender her right SI joint is tender to palpation. She is increasing pain with hip flexion. And the pain radiates down her right buttock and her right hamstring. There is no weakness or numbness to her lower extremities. There is no cauda equina. There is no saddle anesthesia. She has normal medial thigh sensation. Normal dorsi and plantarflexion. Neurologically she is awake and alert with no focal motor deficits. Patient is frustrated by this pain today. States I am falling apart, only 37 years old. Tearful. Const Vital Signs: 05/20/23 14:20 05/20/23 14:19 Temperature 97.3 F L Temperature Source Temporal Pulse Rate 107 H 107 H Respiratory Rate 16 16 Blood Pressure 148/118 H 148/118 H Blood Pressure Mean 128 128 Pulse Ox 100 100 Oxygen Delivery Method Room Air Room Air Positive well nourished and well developed; Negative for obese, cachectic, contractures or unkempt General Appearance ED: well developed and NAD; Negative for unkempt, cachectic, contractures or pallor Nutritional Appearance: Negative for cachectic or obese HEENT Reports moist mucous membranes; Denies TM's clear or dry mucous membranes Negative for trauma or tenderness Tympanic Membrane ED: Negative for TM's clear Mouth ED: No dry mucous membranes Mouth: No dry mucous membranes Eyes PERRL and EOMs intact bilaterally General Eye ED: Negative for pale conjunctiva, scleral icterus or other Neck no lymphadenopathy, supple and no JVD General: Negative for tenderness Thyroid: Negative for other Chest Wall Chest: Negative for other Resp normal respiratory effort and clear to auscultation bilaterally Effort and Inspection: Negative for pain with movement Auscultation: Negative for rales, rhonchi, wheezes or diminished lung sounds Cardio regular rate, regular rhythm, S1 normal heart sound, S2 normal heart sound and no murmurs Palpation: Negative for palpable S3 Rate: Negative for bradycardia or tachycardic Rhythm: Negative for abnormal rhythm Bruits: Negative for other GI normal to inspection, nondistended, normoactive bowel sounds, soft to palpation,non-tender, non-distended and no masses Inspection: Negative for abdominal distention Palpation: Negative for tender, guarding or rebound tenderness present Bladder / Kidney Exam: No other Back/Spine normal to inspection and no thoracic nor lumbar tenderness Back/Spine Narrative: Right SI tenderness. Positive straight leg raise test on the right. Cervical Spine: Negative for cervical spine tenderness and Negative for paracervical muscle tenderness Thoracic Spine / Upper Back: Negative for paraspinal muscle tenderness Lumbar Spine / Lower Back: straight leg raise positive right; Negative for ROM limited Extremity normal to inspection and no clubbing, cyanosis or edema General Extremety ED: Negative for edema or tenderness General Extremity: Negative for edema Neuro oriented x3 and no sensory deficits noted Sensorium / Orientation: Negative for alert, confused, lethargic or stuporous Sensory Exam: No other Motor Exam: strength 5/5 throughout Psych mental status grossly normal Appearance: Negative for unkempt Attitude: No agitated Mood & Affect: tearful; Negative for depressed or sad Skin no rashes or lesions noted and no wounds General Skin Exam: Negative for jaundice or pallor Lesions: No lesion noted Rashes: No rashes noted Trauma: Negative for abrasion or puncture Wounds: Negative for wounds noted MDM MDM MDM Narrative Medical decision making narrative: History and exam are consistent with right-sided sciatica. IM Toradol. Percocet p.o. Discharged home. History & Record Review Discussion w/independent historian: Patient Additional record(s) reviewed:: Prior inpatient record, Prior outpatient record,Prior ED visit and Prior labs Discharge Plan Triage Chief Complaint: Lower Extremity Injury ED Provider: Lance Betancourt Dx/Rx/DC Orders Clinical Impression: Sciatica of right side, Hx of neck surgery Instructions: ED Sciatica Prescriptions: New oxycodone-acetaminophen [Percocet] 5-325 mg tablet 1 tab PO Q4H PRN (Reason: pain) 3 Days Qty: 12 0RF No Action cyclobenzaprine [cyclobenzaprine] 10 mg tablet 10 mg PO TID PRN (Reason: Muscle Spasm) Qty: 20 0RF naproxen [Naprosyn] 500 mg tablet 500 mg PO BID PRN (Reason: pain) Qty: 20 0RF Primary Care Provider: Giancarlo Ott Referrals: Giancarlo Ott [Primary Care Provider] - 3-5 Days if not improving Activity Restrictions/Additional Instructions: Percocet for pain. Motrin for pain and inflammation. Follow-up with your primary care physician if not improving because if this is not improving you may need an MRI of your lower back to rule out degenerative disc disease. Your exam and history however go along with sciatica. Disposition Disposition: Home, Self Care What to do if you have Problems For any increased pain, shortness of breath, bleeding, nausea or vomiting, chestpain, or any unexpected problems, contact your Primary Care Provider. Call [facility] ([phone]) or report to the closest Emergency Room. Call 911 if necessary. 05/20/23 1438 <Electronically signed by Lance Betancourt MD> Cosigner Signature (if applicable): CC: [facility] ~ Signed [facility] Work Phone: 1(902) 111-183803-16-2024 NoteHNO ID: [id number] Author: RENATO MONTANO MD Service: ? Author Type: Physician Type: Progress Notes Filed: 05/09/2023 15:45 Note Text: Patient presents with: Pain, Sinus: Sinus pain [...] VITALS: BP 118/76 Pulse 63 Temp 36.8 ?C (98.2 ?F) (Tympanic) Resp 18 Wt 91.6 kg (201 lb 15.1 oz) LMP 05/19/2021 SpO2 94% BMI 29.82 kg/m? PE: Gen: uncomfortable, holding her face Eyes: [...] penicillin. Encouraged appropriate amounts of as needed [id number] analgesia. Schedule follow-up with dentist. Renato Montano, [facility]03-16-2024 History of Present illness Narrative* Renato Montano MD - 05/09/2023 2:54 PM EDT Patient presents with: Pain, Sinus: Sinus pain [...] mouth once daily. (Patient not taking: Reported on05/09/2023) omeprazole (PRILOSEC) 40 mg capsule Take 1 [...] penicillin. Encouraged appropriate amounts of as needed [id number] analgesia. Schedule follow-up with dentist. Renato Montano MD [facility] NoteHNO ID: [id number] Author: Reyes Roy MD Service: ? Author Type: Physician Type: Progress Notes Filed: 11/27/2022 9:00 AM Note Text: SPINE SURGERY ESTABLISHED VISIT This is a virtual visit using [employer] Zoom Video Visit. It required patient-provider interaction for the medical decision making as documented below. I have communicated my name and active licensure. The patient's identity and physical location were verified at the time of this visit. Either the patient or their legal international representative has been informed of the risks [...] breath at times. She did see a manager speech, and they felt she may have fibromyalgia, [...] that she continue to follow with the manager speech for additional evaluation and treatments, as I [...] which included preparing to see the patient, [id number] patient care, completing clinical documentation, obtaining and/or reviewing separately obtained history, performing a medically appropriate examination, counseling and educating the patient/family/caregiver, communicating with other HCPs (not separately reported), and independently interpreting results (not separately reported).[facility]10-05-2023 History of Present illness Narrative* Reyes Roy MD - 11/27/2022 8:41 AM EDT SPINE SURGERY ESTABLISHED VISIT This is a virtual visit using [employer] Video Visit. It required patient- provider interaction for the medical decision making as documented below. I have communicated my name and active licensure. The patient's identity and physical location wereverified at the time of this visit. Either the patient or their legal international representative has been informed of the risks and benefits of -- and alternatives to -- treatment through a remote evaluation andconsents to proceed with the evaluation remotely. DATE [...] pain in her lung. She even feels shortof breath at times. She did see a manager speech, and they felt she may have fibromyalgia, [...] diffuse muscle weakness/pain, especially in the lower ext remities. Additionally, she has scapular pain. This may [...] that she continue to follow with the manager speech for additional evaluation and treatments, as I [...] which included preparing to see the patient, [id number] patient care, completing clinical documentation, obtaining and/or reviewing separately obtained history, performing a medically appropriate examination, counseling and educating the pat ient/family/caregiver, communicating with other HCPs (not separately reported), and independently interpreting results (not separately reported). [facility]23 NoteHNO ID: [id number] Author: Madisyn Sen RT(R) Service: ? Author Type: Lead Programmer Type: Progress Notes Filed: 11/25/2022 11:47 AM [...] BY: RT Inge(R) November 25, 2022 11:32 [facility]07-26-2023 NoteHNO ID: [id number] Author: Rita Leung RT(Bruno) Service: ? Author Type: Lead Programmer Type: Progress Notes Filed: 09/17/2022 2:28 PM [...] IV DATA: Not applicable SIGNED BY: RT Troy(R) September 17, 2022 2:27 [facility]07-26-2023 NoteHNO ID: [id number] Author: Divina Key MD Service: ? Author Type: Physician Type: Progress Notes Filed: 09/17/2022 3:16 PM Note Text: Divina Key MD Tammy Anna September 16, 2022 Referring Provider: PCP: Tonya [...] and inflammatory markers are negative except for HOMICIDE DETECTIVE of 1.1. XR shows DJD and scoliosis. [...] 07/04/2022. The surgery helps with her pain, communication coordinator strength, dexterity, tingling sensation and balance. She [...] tissue pain probably (more content not included)... [facility]07-26-2023 History of Present illness Narrative* Divina Key MD - 09/17/2022 2:00 PM EDT MD Tammy Cervantes September 16, 2022 Referring Provider: PCP: Tonya Arriaga, STUDENT SPECIALIST Chief Complaint: Patient presents with: Joint Pain [...] rash, malar rash, photosensitivity, frequent oral ulcer, objectivefever or other CTD symptoms. She is adopted. [...] and inflammatory markers are negative except for HOMICIDE DETECTIVE of 1.1. XR shows DJD and scoliosis. [...] 07/04/2022. The surgery helps with her pain, communication coordinator strength, dexterity, tingling sensation and balance. She [...] also does not reveal any positive serologies (HOMICIDE DETECTIVE of 1.1 is essentially negative) or elevated [...] which included preparing to see the patient, [id number] patient care, completing clinical documentation, obtaining and/or reviewing separately obtained history, performing a medically appropriate examination, counseling and educating the pat ient/family/caregiver, and ordering medications, tests, or procedures. Divina Key MD Referring Provider: PCP: Tonya Arriaga CNP [...] Yes Swollen Glands: Yes documented in this encounterOhiohealth Marion [facility] Hospital06-30-2023 Miscellaneous Notes* Telephone Encounter - Alpa Casas Coord - 08/22/2022 2:25 PM EDT NI PHONE Name of caller : Tammy [...] weight limit for 2nd week, then 30 lbsweight limit for 3rd week, then no limit if tolerating well. Alpa Casas Coord * Telephone Encounter - Cris Mcdonnell PSS - 08/22/2022 2:05 PM EDT Letter sent through [employer] * Telephone Encounter - Alpa Casas Coord - 08/22/2022 1:44 PM EDT NI PHONE Name of caller : Tammy [...] through my chart per patient's request. Alpa Casas Coord documented in this encounterOhiohealth Marion General Hospital06-29-2023 NoteHNO ID: [id number] Author: Reyes Roy MD Service: ? Author Type: Physician Type: Progress Notes Filed: 08/21/2022 12:35 PM Note Text: SPINE SURGERY FOLLOW UP This is an in-person visit. CC: Yovany Godfray SERVICE DATE: 08/21/22 SURGERY DATE: 07/04/2022 Tammy Anna is seen for 6 week post operative follow up s/p C5/6 ACDF. Preop, had arm pain, right thumb cramping, communication coordinator weakness, difficulty with dexterity, dropping things, and tingling in right arm, imbalance. Arm pain resolved Cramping thumb resolved Product Builder improving Dexterity improving Not dropping things as [...] which included preparing to see the patient, hbno-hq-pals patient care, completing clinical documentation, obtaining and/or reviewing separately obtained history, performing a medically appropriate examination, counseling and educating the patient/family/caregiver, ordering medications, tests, or procedures, and communicating with other HCPs (not separately reported). [facility]06-29-2023 Instructions* Patient Instructions* Reyes Roy MD - 08/21/2022 12:34 PM EDT Okay to resume normal activities without restriction. Recommend slow up- titration of activity as tolerated. Start with a [...] questions. Reyes Roy MD documented in this encounterOhiohealth Marion General Hospital06-29-2023 History of Present illness Narrative* Reyes Roy MD - 08/21/2022 11:40 AM EDT SPINE SURGERY FOLLOW UP This is an in-person visit. CC: Yovany Ahn SERVICE DATE: 08/21/22 SURGERY DATE: 07/04/2022 Tammy Anna is seen for 6 week post operative follow up s/p C5/6 ACDF. Preop, had arm pain, right thumb cramping, communication coordinator weakness, difficulty with dexterity, dropping things, and tingling in right arm, imbalance. Arm pain resolved Cramping thumb resolved Product Builder improving Dexterity improving Not dropping things as [...] resume normal activities without restriction. Recommend slow up- titration of activity as tolerated. Continue to hold off on NSAIDs until next f/u Virtual f/u in 3 months with x-rays before appt Reyes Roy MD Associate Staff, Skull Base & Spine Surgery Department of Neurological Surgery August 21, 2022 11:51 AM I spent a total of 20 minutes on the date of the service which included preparing to see the patient, [id number] patient care, completing clinical documentation, obtaining and/or reviewing separately obtained history, performing a medically appropriate examination, counseling and educating the pat ient/family/caregiver, ordering medications, tests, or procedures, and communicating with other HCPs (not separately reported). documented in this encounterOhiohealth Marion General Hospital05-31-2023 Miscellaneous Notes* PT DISCHARGE - Marcelina Alvarez PT - 07/23/2022 10:18 AM EDT SITUATION: only patient present during today's visit. patient reports the following since the last homecare visit: medications/allergies--no changes, no fall. patient reports doing great . But sometimes feels like something is stuck in her throat and going to see MD on 08/18/22 for follow up BACKGROUND: Diagnoses (reason for Home Care): Encounter for surgical aftercare following surgery on the nervoussystem SURGERY/PROCEDURE(S): 1. C5/6 ACDF wit h plating [...] summary for intervention/education details. documented in this encounterOhiohealth Marion General Hospital05-30-2023 Miscellaneous Notes* PT ROUTINE/REASSESSMENT/RECERT/CASE MGMT - Meeta Davidson PTA - 07/22/2022 2:14 PM EDT SITUATION: only patient present during today's visit. patient reports the following since the last homecare visit: medications/allergies--no changes, no fall. patient reports she had Dr castro today(virtual) and it went well. States she told them she has been riding bike and doing things outdoors more. States she is still having occasional difficulty w/ swallowing and they were going to put in order forspeech therapy. BACKGROUND: Diagnoses (reason for Home Care): Encounter for surgical aftercare following surgery on the nervoussystem SURGERY/PROCEDURE(S): 1. C5/6 ACDF wit h plating [...] summary for intervention/education details. documented in this encounterOhiohealth Marion General Hospital05-30-2023 Miscellaneous Notes* CARE COORDINATION - PAULETTE Rdz - 07/22/2022 1:09 PM EDT OT contacted Dr. Roy's office via [employer] on 07/22/22 for the following: Requested to cancel order for tub transfer bench, as patient no longer needs it. New orders: None Follow up needed: None * OT DISCHARGE VISIT NOTE - PAULETTE Rdz - 07/22/2022 1:09 PM EDT SITUATION: Pt. in kitchen when OT arrived. [...] and Tub Transfers with no device with [place]. Plan of care, goals, and discharge reviewed and agreed upon with patient/caregiver. RECOMMENDATION: Instructions include: discharged from OT and is active with PT. Post dc recommendations: follow up with physician as scheduled 08/18/22. See intervention summary for intervention/education details. documented in this encounterOhiohealth Marion General Hospital05-30-2023 NoteHNO ID: [id number] Author: Carolina Hendricks RN Service: ? Author Type: Registered Nurse Type: Progress Notes Filed: 07/22/2022 10:10 AM Note Text: Patient is here today for a 2 week postop VV/ incision check. Surgery on 07/04/22, C5/[address] Roy. Patient is recovering well postoperatively. No neurological symptoms or complaints compared to preoperative baseline. Pt states her preop pain is resolving/resolved. BUE symptoms resolving. Product Builder issues resolved. Pt not requiring any pain [...] with any questions or concerns. RUBENS Briceno, RNSt. [facility] Hospital05-[facility]-20[facility] History of Present illness Narrative* Carolina Hendricks RN - 07/22/2022 10:02 AM EDT Patient is here today for a 2 week postop VV/ incision check. Surgery on 07/04/22, C5/[address] Roy. Patient is recovering well postoperatively. No neurological symptoms or complaints compared to preoperative baseline. Pt states her preop pain is resolving/resolved. BUE symptoms resolving. Product Builder issues resolved. Pt not requiring any pain [...] to area. Discussed could be postop seroma, inflammation,internalstitch, expected postop swelling, advised to ice area 20 minutes per hour during waking areas for inflammation. Will review with NSG team and update patient with any additional recommendations. Reviewed wound care with patient with good understanding and confirmed postoperative follow up appointment with Dr Roy on 08/18/22. Aware to phone office with any questions or concerns. RUBENS Briceno, RN documented in this encounterOhiohealth Marion General Hospital05-15-2023 Miscellaneous Notes* PT SOC/MISSAEL/FOLLOW UP/OTHER - Troy Rodriguez, PT - 07/07/2022 11:34 AM EDT SITUATION: only patient present during today's visit. patient reports Agreeable to home PT. BACKGROUND: Diagnoses (reason for Home Care): Encounter for surgical aftercare following surgery on the nervoussystem SURGERY/PROCEDURE(S): 1. C5/6 ACDF wit h plating [...] baths 3-4weeks postop. ASSESSMENT: [facility]. Reviewed and explained homecare services. Plan of care, goals, and visit frequency developed, reviewed, and agreed upon with patient and/or caregiver. Spoke with Sarahy CORTES from Dr Roy's office about appears to [...] summary for intervention/education details.n/a documented in this encounterOhiohealth Marion General Hospital05-13-2023 NoteHNO ID: [id number] Author: Kelle Olivares, RN Service: Care Management [...] ready to discharge home with home OT, [facility] accepting. F2F/home care orders in. Family to transport home. SIGNATURE: Kelle Olivares RN PATIENT NAME: Tammy Anna DATE: July 05, 2022 TIME: 12:30 PM CONTACT #: [phone] A. Alley [id number] NoteHNO ID: [id number] Author: Valdemar Fajardo MD Service: General Internal Medicine Author Type: [...] -- -- -- -- 175.3 cm (5' 9) 94.8 kg (209 lb) Body mass index [...] 24 hours ending 07/05/22 1200 SIGNATURE: Valdemar Fajardo MD DATE: July 05, 2022 TIME: 12:00 [facility]05-13-2023 NoteHNO ID: [id number] Author: Wilmer Choi PA-C Service: Neurosurgery Author Type: Physician Director Of Materials Type: Progress Notes Filed: 07/05/2022 11:10 AM Note Text: Please page the Neurosurgery group pager [phone] for any questions or concerns Patient is [...] BICEPS TRICEPS DELTS Wrist Ext Wrist Flex Product Builder R 5/5 5/5 5/5 5/5 5/5 5/5 [...] PA-C Please page the Neurosurgery group pager [phone] for any questions or concernsBoston [facility] Center05-13-2023 NoteHNO ID: [id number] Author: Interface Note Service: ? Author Type: ? Type: Progress Notes Filed: 07/05/2022 2:14 AM Note Text: Epic Scheduled Downtime: 07/05/2022 1:02:00 AM to 07/05/2022 2:01:00 [facility]05-12-2023 NoteHNO ID: [id number] Author: Monica Baker APRN.UTILIZATION MANAGEMENT MANAGER Service: Anesthesiology Author Type: Nurse Reference Services Head Type: Anesthesia Procedure Notes Filed: 07/04/2022 8:09 AM Note Text: ANESTHESIOLOGY PROCEDURE NOTE PIV General Information Procedure Start Time/Medication Administration: 07/04/2022 7:45 AM Patient Location: OR Staffing UTILIZATION MANAGEMENT MANAGER: Monica Baker APRN.UTILIZATION MANAGEMENT MANAGER Preparation Sterility Preparation: hand hygiene performed prior to procedure, mask used Site Prep: alcohol Procedure Details Indication: need for IV access Needle Size/Type: 20 gauge angiocath Orientation: Right Location: Hand Imaging Guidance Used: No SIGNATURE: Monica Baker APRN.CRNA PATIENT NAME: Tammy Anna DATE: July 04, 2022 TIME: 8:08 AM CSN: [id number] NoteHNO ID: [id number] Author: Monica Baker APRN.UTILIZATION MANAGEMENT MANAGER Service: Anesthesiology Author Type: Nurse Reference Services Head Type: Anesthesia Procedure Notes Filed: 07/04/2022 8:07 AM Note Text: ANESTHESIOLOGY PROCEDURE NOTE Airway General Information Procedure Start Time/Medication Administration: 07/04/2022 7:40 AM Patient location during procedure: OR Timeout Performed Pre-procedure: timeout performed Consent Obtained: Yes Patient identity confirmed: arm band and care velvet steamer Staffing UTILIZATION MANAGEMENT MANAGER: Monica Baker APRN.UTILIZATION MANAGEMENT MANAGER Indications and Patient Condition Indications for [...] 1 Airway not difficult SIGNATURE: Monica Baker APRN.UTILIZATION MANAGEMENT MANAGER PATIENT NAME: Tammy Anna DATE: July 04, 2022 TIME: 8:07 AM CSN: [id number] Miscellaneous Notes* Telephone Encounter - Carolina Hendricks RN - 07/03/2022 1:35 PM EDT NEUROSURGERY CARE COORDINATION [facility] PRE-OP EDUCATION PHONE CALL ? Spoke with patient Tammy Anna for pre-op education. Reviewed education materials verballywith patient, including pre-operative skin preparation, medications, NPO, DOS expectations, visitorpolicy, inpatient expectations, wound care, post-operative pain management. ? Provided the following education materials to patient: [facility] Pre-/Post-Op Instruction packet, NPO/Skin Prep Instructions, Advance Directives info, Pain Management After Spine Surgery, Preparing for Post-Acute Care Instructions : Yes. ? Reviewed with patient to report to Pre/Post op services day of surgery: Yes. ? Reviewed with patient [facility] Surgery Pre-Op will call patient after 2 pm the day before to get surgery report time for day of surgery. Provided Pre-Op front desk associate phone number of [phone] for any questions: Yes. ? Patient made [...] Support/Assistance upon discharge after surgery (family member, SNF,Rehab etc.): Carolina Soliz RN July 03, 2022 1:39 PM documented in this encounterOhiohealth Marion General Hospital05-04-2023 Miscellaneous Notes* Telephone Encounter - Cris CADENA - 06/26/2022 12:11 PM EDT Type of form: FMLA Form received via email When form is completed, email back to patient's employer Form has been forwarded to Physician Desk: Dr. Manuela CADENA documented in this encounterOhiohealth Marion General Hospital04-18-2023 NoteHNO ID: [id number] Author: RT Wilma(R) Service: ? Author Type: Lead Programmer Type: Progress Notes Filed: 06/10/2022 12:31 PM [...] BY: RT Tiarra(R) June 10, 2022 12:31 [facility]04-18-2023 History of Present illness Narrative* Aarti Mosquera RT(Bruno) - 06/10/2022 11:00 AM EDT Radiology Service Progress Note PATIENT NAME: Tammy Anna DATE OF SERVICE: June 10, 2022 TIME: 12:31 PM PATIENT IDENTITY VERIFICATION COMPLETED USING TWO (2) IDENTIFIERS: Name and Date of confirmedby patient verbally. FALL SCREENING: Has the patient [...] 10, 2022 12:31 PM documented in this encounterOhiohealth Marion General Hospital04-14-2023 Miscellaneous Notes* Telephone Encounter - Yovany Ahn PA-C - 06/06/2022 2:34 PM EDT Spoke with patient. She states her symptoms have been progressing. Today she has had two occasions with shocks through the body. Just recently she stood up from picking up her keys and felt sharp pain through her chest, the spine and into both arms. [place] like an electrical shock. The pain and numbness in the left arm continued longer and she still has some mild numbness in left3-5 digits. Generalized weakness. 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 Feels this is a little worse than normal. Slight worsening of balance. Gabapentin 300mg TID - fatigued. Will send message to spine surgery Dr. Roy to update. She is scheduled for surgery 07/04. Advised to be seen at [place] ED for intractable pain, increased weakness/dexterity/balance difficulty. Yovany Ahn PA-C * Telephone Encounter - Aarti Vicente - 06/06/2022 2:22 PM EDT Patient called, stated at last appointment, Yovany had said if her pain persists to go to the ER,patient is wondering what the provider meant by that. She is experiencing pain and an electric feeling to where it goes down her back, and through both arms. Patient is requesting a call back. Pleaseadvise. documented in this encounterOhiohealth Marion General Hospital04-12-2023 History and physical note * Lianet Mas APRN.YING - 06/04/2022 3:18 PM EDT HISTORY AND PHYSICAL EXAMINATION SERVICE DATE: 06/04/2022 [...] pain, arm pain, cramping in right thumb, communication coordinator strength weaker. Difficulty with zippers, buttons, small [...] fevers. Neurological: No history of TIA's, stroke, OCC THER tumor, impaired sensorium, hemiplegia, paraplegia orquadraplegia. No neurological symptoms or problems. Respiratory: Positive for: tobacco use (0.25ppd). Negative for: asthma, COPD, pneumonia within 6 weeks, URI < 2 weeks and obstructive sleep apnea. Cardiovascular: No history of HTN requiring medication, no history of angina, CHF, LA, cardiac surgery or stents. Denies rest pain, [...] > 1 time per night or hematuria. SOCIAL AND POLITICAL STUDIES PROFESSOR: Negative for abnormal vaginal bleeding, abnormal vaginal [...] mouth three times daily for 30 days. TakingYes loratadine (CLARITIN) 10 mg tablet Take 10 [...] 370 QTC Calculation (Bazett) 413 Calculated P [place] 15 Calculated R [place] 48 Calculated T [place] 14 Impression NORMAL SINUS RHYTHM NORMAL ECG No results found for this or any previous visit (from the past 39768 hour(s)). Assessment Patient has the following medical [...] large neck Non-male patient STOP-Bang Score: 0 [id number] Score: Age: <65 Sex: female CHF history: No Hypertension history: No Vascular disease history: No Diabetes history: No [id number] Score: 1 ARISCAT Score: Age: <=50 Preoperative [...] [place] present: no Lip Bite Test: I Microretrognathia/Micronagthia/Recessed Chin: No DENTAL Dental findings: teeth intact. II - ANESTHESIA PLAN ASA Score: 2 Anesthetic Plan: other Anesthetic plan additional comments: *PACC/TCI - anesthesia choice. Beta Pierce Monitoring Plan Post Procedure Analgesic Plan Informed Consent Anesthetic risks, benefits, alternatives, personnel and consent discussed: yes. Patient / Responsible Green Party agrees to proceed: yes Patient / [...] and voices comprehension and compliance. SIGNATURE: Lianet Mas APRN.CNP PATIENT NAME: Tammy Anna DATE: June 04, 2022 TIME: 3:18 PM PAGER/CONTACT #: documented in this encounterOhiohealth Marion General Hospital04-12-2023 Instructions* Patient Instructions* Lianet Mas APRN.CNP - 06/04/2022 3:18 PM EDT PATIENT PREOPERATIVE INSTRUCTIONS Reyes Roy MD has scheduled you for your procedure at this surgery center: [facility]: [phone] -- [address] [address]. Please read below carefully for your personalized [...] Procedures: - YOU MUST HAVE A RESPONSIBLE RESOURCE CONSERVATION SPECIALIST TAKE YOU HOME. A CAR DUMPER OPERATOR HELPER OR MAIL DELIVERER CANNOT BE MADE A RESPONSIBLE RESOURCE CONSERVATION SPECIALIST. - We recommend that a responsible person stays with you overnight to take care of you. - You cannot stay in a hotel alone after outpatient surgery. You will not be permitted to have yoursurgery, if you do not have someone to take care of you. Arrival Time for Surgery: -You will receive a call from [facility] the afternoon before surgery after 2:30 pm(or Thursday for Thursday surgery) for a scheduled arrival time. - If you have not heard by 4 pm, please contact [facility] at [phone]. Please be aware that emergency situations arise, which may delay or change your surgical time. If this happens, we will notify you as soon as possible and regret any inconvenience. If you already have an Advance Directive, please fax a copy to [phone] or email to for it to be added to your chart. If you do not have an Advance Directive, you can find the appropriate form and more information at [email or web address]. We recommend that youcomplete the Advance Directive form found on the website and bring it with you the day of your surgery. It can be witnessed and scanned into your chart that day. Lianet Mas APRN.YING documented in this encounterOhiohealth Marion General Hospital04-11-2023 Miscellaneous Notes* Telephone Encounter - Ashley Hernandez - 06/03/2022 12:35 PM EDT NI PHONE Name of caller : Tammy Relationship to patient : Self If not self Will need patient permission to release results or disclose health information with called documented in fyi. Was permission obtained from patient ? Yes Patient identified by Name and Date of . ( Tammy Anna, 1985). Yes Reason for Call : I have scheduled Tammy for her 2 week virtual post op and her 6 week post op. Her PACC was already scheduled. Number to return call [phone] Okay to leave a message ? Yes Thank you calling [facility] [place]. You will receive a return call within 48hours ( or 2 business days if close to the weekend). If you feel that this is an urgent issue and needs immediate attention, it is recommended that you contact your primary care provider office or proceed to your nearest Urgent Care Center of Emergency Room ED for evaluation/treatment. documented in this encounterOhiohealth Marion General Hospital04-11-2023 Miscellaneous Notes* Telephone Encounter - Carolina Hendricks RN - 06/03/2022 9:57 AM EDT NEUROSURGERY CARE COORDINATION [facility] SURGERY SCHEDULING ? Patient Tammy Anna accepts surgery date of 07/04/[address] Roy. Planned procedure is C5/6 ACDF. ? PAT will [facility] at [facility]. ? Medications reviewed: Yes. Medications to be stopped prior to surgery: other : N/A. ? Additional pre-op clearances needed: per [facility] provider recommendations. ? Any implanted devices: No. ? Transplant History No ? Patient will require optimization lab work: per [facility] provider recommendations ? Questions answered. Patient verbalizes understanding via teach back. Carolina Soliz RN June 03, 2022 9:58 AM documented in this encounterOhiohealth Marion General Hospital04-10-2023 NoteHNO ID: [id number] Author: Reyes Roy MD Service: ? Author Type: Physician Type: Progress Notes Filed: 06/02/2022 3:46 PM Note Text: SPINE SURGERY OUTPATIENT CONSULT This is an in-person visit. SERVICE DATE: 06/02/2022 PCP: Tonya Arriaga CNP REFERRING PROVIDER: Yovany Ahn [address] [facility] [address] Consult requested for an opinion regarding the [...] pain, arm pain, cramping in right thumb, communication coordinator strength weaker. Difficulty with zippers, buttons, small [...] cervical stenosis with resultan (more content not included)...[facility] 06-02-2022 History of Present illness Narrative* Reyes Roy MD - 06/02/2022 3:00 PM EDT SPINE SURGERY OUTPATIENT CONSULT This is an in-person visit. SERVICE DATE: 06/02/2022 PCP: Tonya Arriaga CNP REFERRING PROVIDER: Yovany Ahn [address] [facility] [address] Consult requested for an opinion regarding the [...] pain, arm pain, cramping in right thumb, communication coordinator strength weaker. Difficulty with zippers, buttons, small [...] the imaging together, and I believe this patienthas cervical stenosis with resultant cervical myelopathy. We [...] the patient or the patient s personal international representative. The patient has elected to schedule [...] SIGNATURE: Reyes Roy MD PATIENT NAME: Tammy nAna DATE: June 02, 2022 TIME: 2:50 PM PAGER: I spent a total of 50 minutes on the date of the service which included preparing to see the patient, gjqf-cx-iwyw patient care, completing clinical documentation, obtaining and/or reviewing separately obtained history, performing a medically appropriate examination, counseling and educating the pat ient/family/caregiver, and communicating with other HCPs (not separately reported). documented in this encounterOhiohealth Marion General Hospital04-04-2023 NoteHNO ID: [id number] Author: Yovany Ahn PA-C Service: ? Author Type: Physician Director Of Materials Type: Progress Notes Filed: 05/27/2022 2:52 PM Note Text: Spine Care Path Neck Pain - Chronic (> 12 weeks) Follow Up Visit [facility] This Team Access Model visit [...] arms to all the fingers (R>L). Decreased communication coordinator strength. Still dropping things with the hands. [...] spine surgery: none Treating providers: -Rheumatology Dr. Key. Evaluation was 03/17/22 for chronic diffuse pain [...] the right thumb. She feels like her communication coordinator strength in both hands is weaker than [...] and her whole body tenses up and shivers. Always feels like she has to crack the back. H/o carpal tunnel surgery on right. Smoking 0.5 PPD. Working on quitting. 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 PAIN EVALUATION 05/25/2022202005/27/2022 1203 Pain Level: 9 9 Pain Location: Back Back Description: Aching;Burning;Cramping;Dull;Pulsating;Radiating;Sharp;Stiffness;Tightness; Tingling Stabbing;Dull;Achin (more content not included)...[facility]03-29-2023 NoteHNO ID: [id number] Author: RT Gurpreet(R) Service: ? Author Type: [...] BY: RT Gurpreet(R) May 21, 2022 2:27 [facility]03-07-2023 History of Present illness Narrative* Dank Springer PT - 04/29/2022 1:03 PM EST Episode Visit Count: 1 Therapist That Will [...] of neck pain with B UE involvement andlow back pain with B LE involvement (R>L) that interferes with standing, walking, bending, heavyexertion, lifting, sitting, sleeping (prolonged positions). She presents with impairments in ADL's,flexibility, independence in exercise, overall function, range of motion, strength, symptom management, and tissue tenderness. Patient did not complete the PROMIS (Patient Reported Outcome Measures Information System). Prognosis for therapy is Good due to: current objective clinical presentation, good overall health status, within-session changes, good support system/ coping skills, Prognosis maybe limited due to chronic nature of impairments, [...] out what is causing her pain and fixit Planned Interventions, Frequency, and Duration: Current Frequency: 2x/week Duration: 8 weeks Total Number of Visits Planned: 16 Planned Treatment Interventions: Therapeutic exercise (71551), Neuromuscular re- education (39460), Manual therapy (16246), Therapeutic activities (53924), Self- jail management (63387), Patient/Family/Caregiver Education, Body Mechanics Training, General Conditioning, Functional training PLAN FOR NEXT VISIT: Review, correct and progress HEP to tolerance. Continue with postural stretching and strengthening therex. Continue postural correction and body repairer instruction including lifting technique at work. Begin [...] also reports constant B LB pain that canradiate down into R LE to feet. She reports that these symptoms are sometimes triggered by prolonged positions and sometimes certain movement. Patient Goals: Decrease or eliminate pain. 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 Postural correction was completed with handout issued to supplement verbal instructions. She was educated on the importance of proper body mechanics, especially at work. Pt was briefly i ntroduced to the PNE concept and she was open to expanding this training in future PT visits. She was advised that hurt does not equal harm but that she should use pain as her guide and back off orstop any exercise that causes increased pain. She [...] 43 Dank Springer PT documented [facility] Instructions* Patient Instructions* Yovany Ahn PA-C - 04/23/2022 9:44 AM EST Images [...] day to return to the previous dose thatwas effective without intolerable side effects. Do not [...] the office if questions. documented in this encounterOhio[facility]23 History of Present illness Narrative* Yovany Ahn PA-C - 04/23/2022 8:56 AM EST [facility] Neck Pain - Chronic (> 12 weeks) Initial Exam SUBJECTIVE HISTORY OF PRESENT ILLNESS: Tammy Anna is a 36 year old female who presents with a chief complaint of low back, neck, arm, and leg pain and is seen in consultation requested by Dr. Key for an opinion regarding neck pain, low [...] the right thumb. She feels like her communication coordinator strength in both hands is weaker than it used to be. Difficulty with zippers, buttons, small objects. She can drop things with either hand if not paying close attention. Worsethe past 4 months but started about 8 months ago. When she coughs she has numbness and tingling throughout right arm and all the fingers and startingthroughout the left arm as well. Started about [...] and her whole body tenses up and shivers. Always feels like she has to crack the back. H/o carpal tunnel surgery on right. Smoking 0.5 PPD. Working on quitting. 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 Interventions: Medications: ibuprofen PRN, tylenol PRN -Previously tried: flexeril Physical therapy: none Previous spine injection history: none Previous spine surgery: none Treating providers: -Rheumatology Dr. Key. Evaluation was 03/17/22 for chronic diffuse pain for more than 7 years. I have quite a low suspicion that she has any underlying systemic rheumatologic autoimmune disease that given the absence of signs and symptoms of inflammatory arthritides or stigmata of connectivetissue diseases. Her joint pain is mechanical in nature and I could not appreciate any evidence of synovitis on physical examination. Nonetheless, with a history of positive JONY from outside hospital, I think it is prudent to obtain comprehensive JOSHUA panel as well as inflammatory markers to rule out systemic rheumatologic autoimmune disease with certainty. Phone encounter 03/18/22 JONY here is neg ative. All of the more specific markers for [...] 137/87 Pulse 83 Ht 175.3 cm (5' 9) Wt 92.1 kg (203 lb) LMP 05/19/2021 [...] cervical lordosis which is centered at C4-5. Minimalanterolisthesis at this level with minimal dorsal ridging. [...] aspect of T12 and L5 which are smoothlymarginated and consistent with chronic changes. No acute [...] incontinence for the past 2 years. No bety wel incontinence. Recommend cervical MRI to rule out cervical myelopathy and lumbar MRI to evaluatefor lumbar stenosis given red flag symptoms. Encouraged [...] which included preparing to see the patient, [id number] patient care, completing clinical documentation, obtaining and/or reviewing separately obtained history, performing a medically appropriate examination, counseling and educating the pat ient/family/caregiver, ordering medications, tests, or procedures, independently interpreting results (not separately reported), and communicating results to the patient/family/caregiver. Imaging Ordered: For possible Cervical Myelopathy due to presence of red flags detailed in HPI. For possible Lumbar Spinal Stenosis due to presence of red flags detailed in HPI. SIGNATURE: Yovany Ahn PA-C PATIENT NAME: Tammy Anna DATE: April 23, 2022 TIME: 8:56 AM documented in this encounterOhio[facility]01-23-2023 History of Present illness Narrative* Divina Key MD - 03/17/2022 1:00 PM EST Divina Key MD Tammy Anna March 17, 2022 Referring [...] rash, malar rash, photosensitivity, frequent oral ulcer, objectivefever or other CTD symptoms. She is adopted. [...] old female [facility]. Chronic diffuse [...] Return Visit: I will contact her through [employer] for results. We will make a plan after the resultsare available. I spent a total of 70 minutes on the date of the service which included preparing to see the patient, [id number] patient care, completing clinical documentation, obtaining and/or reviewing separately obtained history, performing a medically appropriate examination, counseling and educating the pat ient/family/caregiver, and ordering medications, tests, or procedures. Divina Key MD Referring Provider: PCP: Tonya Arriaga CNP documented in this encounterOhio[facility]11-01-2022 Instructions* Patient Instructions* Rick Gomez MD - 12/24/2021 10:15 AM EDT Images from the original note were not included. documented in this encounterOhio[facility]11-01-2022 History of Present illness Narrative* Rick Gomez MD - 12/24/2021 10:14 AM EDT Assessment and Plan 1. Progressive peripheral pterygium [...] others. I have seen and examined Tammy Bustillo Shoshana. I have discussed the case and the management of this patient's care with the Resident/Fellow, if applicable. I also have reviewed and agree with the assessment and plan as stated above and agree withall of its relevant components. Rick Gomez MD December 24, 2021 10:14 AM documented in this encounterOhio[facility]04-13-2022 Miscellaneous Notes* Telephone Encounter - Sangeeta Teague LPN - 06/05/2021 2:36 PM EDT Called client services and they will be running the celiac screening today. * Telephone Encounter - Sangeeta Teague LPN - 06/03/2021 2:37 PM EDT Patient is asking what IGA Blood is testing for. Not exactly sure how to answer this. documented in this [facility]04-11-2022 Miscellaneous Notes* Telephone Encounter - Dior Hendricks RN - 06/03/2021 11:51 AM EDT Patient calls in to check on MC [...] results. Dior Hendricks RN documented in this encounterOhio[facility]04-08-2022 Miscellaneous Notes* Telephone Encounter - Lauren Esquivel APRN.CNP - 05/31/2021 4:02 PM EDT Done. Lauren Esquivel APRN.CNP * Telephone Encounter - Sangeeta Teague LPN - 05/31/2021 9:14 AM EDT A new order for H-Pylori stool needs placed. Previous one has . documented in this [facility]04-06-2022 Miscellaneous Notes* Telephone Encounter - Iwona Fonseca RN - 05/29/2021 4:35 PM EDT Patient returned call and given provider's message below with verbalized understanding. * Telephone Encounter - Sangeeta Teague LPN - 05/29/2021 3:31 PM EDT LEFT MESSAGE FOR PATIENT TO CALL OFFICE. * Telephone Encounter - Lauren Esquivel APRN.STUDENT SPECIALIST - 05/29/2021 11:39 AM EDT Please call patient - I have placed the order for celiac testing based on her results from her EGD. Thanks Lauren Esquivel APRN.STUDENT SPECIALIST Biopsies from small bowel/duodenum showed mildly increased lymphocytes. Recommend checking celiac serology if not already done. Otherwise biopsies are unremarkable. Follow up with Ms Esquivel in GI clinic. Mckinley Mendez MD documented in this encounterOhio[facility]03-31-2022 Nurse Note* Monica Puentes RN - 05/23/2021 11:52 AM EDT 100mL of LR given in recovery. Iv was intact, no redness. Hob up. Passing air. States ready to go. Him Assistant called - here. Assisted pt w/dressing. All belongings given. Dr was already at the bedside. No questions. * Monica Puentes RN - 05/23/2021 11:[address] at the bedside. No questions. Him Assistant called - here. * Monica Puentes RN - 05/23/2021 11:33 AM EDT Encouraged to pass air documented in this encounterOhio[facility]03-31-2022 History and physical note * Mckinley Mendez MD - 05/23/2021 10:30 AM EDT HISTORY AND PHYSICAL Tammy Avila, 35 year [...] Mikhail's Esophagus, image tube placement or cryo therapytreatment based on clinical findings. BASELINE BEHAVIOR: Calm [...] None Mckinley Mendez MD documented in this encounterOhio[facility]03-29-2022 History of Present illness Narrative* Tiera Waddell PA-C - 05/21/2021 3:01 PM EDT This note was created using NoteWriter. Subjective Tammy Avila is a 35 year [...] swelling and erythema to the proximal phalanx. Shehas pain with range of motion of the MCP and proximal interphalangeal joint. Some crepitus noted onflexion extension of the tendons. No open wounds. No sign of septic joint. Skin: General: Skin is warm and dry. Neurological: Mental Status: She is alert. Assessment and Plan ASSESSMENT/PLAN: 1. Finger pain, right - ICD9: 729.5, ICD10: M79.644 X-ray showed no acute osseous abnormalities read by radiology. I will treat with prednisone. She issupposed to have a colonoscopy in 2 days, [...] RIGHT Tiera Waddell PA-C documented in this encounterOhio[facility]03-29-2022 Miscellaneous Notes* Telephone Encounter - Katelyn Corcoran LPN - 05/21/2021 2:03 PM EDT Phone call placed patient advised (see prior provider encounter) Patient verbalized understanding, agreed with plan of care. Katelyn Corcoran LPN * Telephone Encounter - Tiera Waddell PA-C - 05/21/2021 1:39 PM EDT Let patient know xrays were read by radiology as no acute bony abnormality. Continue splint as needed, ice, rest. Follow up with ortho/pcp as needed if not getting better. documented in this encounterOhiohealth Marion [facility] HospitalDischarge summary Author Papo Peterson [facility] April 12, 2023 12:52pm Note Date/Time April 12, 2023 11:50am [facility] Medical Records Department [address] [place] [address] Emergency Department Summary 04/12/23 MR#: [id number] Acct: [id number] Name: TAMMY ANNA Rep #:[id number] : 1985 37 From: Papo Newton [facility] atus[facility] ER Location: ED HPI History of Present Illness Chief Complaint: Numb/Ting PFSH PFS Medical History Chronic neck and back pain Costochondritis, acute GERD (gastroesophageal reflux disease) Shoulder pain Home Medications omeprazole 40 mg capsule,delayed release 40 mg PO DAILY 02/22/21 [History Last Taken Unknown] cyclobenzaprine 10 mg tablet 10 mg PO TID PRN Muscle Spasm #20 TABLETS 12/03/21 [Rx Last Taken Unknown] hydrocodone-acetaminophen 5-325mg 5mg-325mg 1 tab PO Q4H PRN PRN Pain 2 days #14TABLETS 12/03/21 [Rx Last Taken Unknown] methylprednisolone 4 mg tablets in a dose pack (Medrol (Nestor)) 4 mg PO DAILY #21 tabs 12/03/21 [Rx Last Taken Unknown] cyclobenzaprine 5 mg tablet 5 mg PO TID PRN muscle spasm #21 tabs 04/12/23 [Rx Last Taken Unknown] prednisone 50 mg tablet 50 mg PO DAILY #5 tabs 04/12/23 [Rx Last Taken Unknown] Allergy/AdvReac Type Severity Reaction Status Date / Time Penicillins Allergy Anaphylaxis Verified 04/12/23 12:26 Family History Other Hypertension Surgical History Hx of section S/P spinal surgery Social History Smoking Status: Current every day smoker tobacco type: cigarettes EXAM Physical Exam Const Vital Signs: 04/12/23 11:31 Temperature 96.5 F L Temperature Source Temporal Pulse Rate 102 H Respiratory Rate 16 Blood Pressure 148/108 H Blood Pressure Mean 121 Pulse Ox 100 Oxygen Delivery Method Room Air [facility] Narrative Medical decision making narrative: HISTORY OF PRESENT ILLNESS: 37-year-old female presents with numbness and tingling in the left upper extremity. Notes this been going on for last 2 weeks.. Notes pain, numbness, tingling that is intermittent and worse with head movement and exertion in the left arm. Denies any trauma or falls. REVIEW OF SYSTEMS: Pertinent positives: Numbness, tingling Pertinent negatives: Neck pain, loss of sensation or movement. PHYSICAL EXAM: Nursing triage notes reviewed, Vital signs reviewed Constitutional: please see mdm Neck: No stridor, no JVD, full neck ROM, no midline step-offs deformities notedto the cervical spine, TTP over left trapezius. Positive Spurling's test to theleft. Lungs: Clear to auscultation, No wheezing or rales. No increased work of breathing, no conversational dyspnea, no accessory muscle use, no nasal flaring. No respiratory distress noted Heart: Regular rate and rhythm, No murmurs, No rubs and No gallops, 2+ distal pulses (radial, femoral, posterior tibial) in all extremities Extremities: No edema Neuro: Intact 5/5 strength with ok sign (median), intact finger abduction (ulnar) intact wrist extension (radial n). Intact sensation in the radial, ulnar, and median nerve distributions. Alert and oriented x3, neuro exam at baseline, cranial nerves II through XII are intact. No pain with extraocular muscle movement. There is negative test of skew. 5 of 5 strength in upper andlower extremities in flexion extension. Intact sensation to light touch in upper and lower extremity dermatomes. No truncal or extremity ataxia. No dysdiadochokinesia. Normal gait. 2+ reflexes in upper and lower extremities. No meningeal signs. Negative Babinski. NIH of 0. Skin: No rash or lesions noted MEDICAL DECISION MAKING: Chief Complaint: Numbness/tingling External records reviewed: Imaging studies reviewed: CT scan of the cervical spine from June 2022 shows evidence of prior anterior fusion of C5-C6, disc spacer, Factors affecting care: Cervical spine surgery Social determinants of health: Denies IV drug use MDM Narrative: I considered the following differential diagnosis: Cervical colopathy, cervical spine fracture dislocation, acute CVA Patient was initially hemodynamically stable, afebrile and nontoxic. Bilateral upper extremity neurologic exams are intact. No signs of any focal neurologic deficits to suggest CVA. There is no report of trauma or significant neck pain to suggest bony injury. There is no indication for advanced imaging of the cervical spine at this time. Patient's clinical history and physical exam are most consistent with likely cervical radiculopathy. Will give anti-inflammatories. Will give muscle relaxers. Will give outpatient orthopedic follow-up. The patient and/or family, caregivers express understanding. The patient and/orfamily, caregivers agrees with the plan. Shared decision making: I will have a discussion with the patient and or visitors regarding risk/benefits of further testing or admission. They will be made aware of of the risk/benefits inherent in this decision they will be given the opportunity to voice understanding. Total critical care time today provided was at least 0 minutes. This excludes separately billable procedures. Critical care time (if documented) is secondary to the patient having high probability of clinically significant/life threatening deterioration in the patient's condition which required my urgent intervention. Impression: 1. Cervical uropathy 2. History of cervical spine surgery Dispo: Discharge This note was generated with [employer] dictation software. It may contain incorrectwords, spelling, and punctuation that were not noted in review of the chart prior to signing. Discharge Plan Triage Chief Complaint: Numb/Ting ED Provider: Papo Peterson Dx/Rx/DC Orders Clinical Impression: Cervical radicular pain Instructions: Cervical Radiculopathy Prescriptions: New prednisone 50 mg tablet 50 mg PO DAILY Qty: 5 0RF cyclobenzaprine 5 mg tablet 5 mg PO TID PRN (Reason: muscle spasm) Qty: 21 0RF No Action omeprazole 40 mg capsule,delayed release(DR/EC) 40 mg PO DAILY Patient Comments: TAKE 1 CAPSULE EVERY DAY cyclobenzaprine [cyclobenzaprine] 10 mg tablet 10 mg PO TID PRN (Reason: Muscle Spasm) Qty: 20 0RF hydrocodone-acetaminophen [hydrocodone-acetaminophen] 5-325 mg tablet 1 tab PO Q4H PRN PRN (Reason: Pain) 2 Days Qty: 14 0RF methylprednisolone [Medrol (Nestor)] 4 mg tablets,dose pack 4 mg PO DAILY Qty: 21 0RF [facility] Referrals: Jonas Pena MD [[facility] Staff - Active Staff] - Activity Restrictions/Additional Instructions: Thank you for trusting us with your care today! Please take Tylenol (2 pills, 650 mg), ibuprofen (2 pills, 400 mg) every 6 hoursas needed for pain and fever control. Please take prednisone as prescribed. Please take Flexeril as needed Please return to the emergency department if your symptoms change or worsen. Specifically develop loss of sensation, loss of movement, severe neck pain. Please follow with your primary care physician and orthopedic surgery for further outpatient evaluation and management. Disposition Disposition: Home, Self Care What to do if you have Problems For any increased pain, shortness of breath, bleeding, nausea or vomiting, chestpain, or any unexpected problems, contact your Primary Care Provider. Call [facility] ([phone]) or report to the closest Emergency Room. Call 911 if necessary. 04/12/23 1252 <Electronically signed by Papo Peterson DO> Cosigner Signature (if applicable): CC: [facility] ~ Signed [facility] Work Phone: Evaluation note* Diagnosis Finger pain, right- Primary Pain in limb [facility] Diagnosis Heartburn History of Helicobacter pylori infection Personal history of other infectious and parasitic disease Epigastric pain Abdominal pain, epigastric Nausea Nausea alone Dark stools Nonspecific abnormal finding in stool contents Loose stools Abnormal feces [facility]* Diagnosis Nausea- Primary Nausea alone Epigastric pain Abdominal pain, epigastric documented in this encounter [facility] note* Diagnosis H. pylori infection- Primary Helicobacter pylori (H. pylori) documented [facility] noteNo assessment information availableWMercy Health Work Phone: Evaluation note* Diagnosis Progressive peripheral pterygium of right eye- Primary Peripheral pterygium, progressive Dry eye syndrome of both eyes documented in this encounter [facility] note* Diagnosis Multiple joint pain- Primary Pain in joint, multiple sites Chronic midline low back pain with bilateral sciatica Neck pain Cervicalgia Positive JONY (antinuclear antibody) Other and unspecified nonspecific immunological findings Numbness and tingling of both feet [facility]* Diagnosis Chronic bilateral low back pain with right-sided sciatica- Primary Pain in both upper extremities Neck pain Cervicalgia Imbalance Abnormality of gait Bladder dysfunction Other functional disorder of bladder Impaired dexterity documented in this encounter [facility] note* Diagnosis Chronic bilateral low back pain with right-sided sciatica Pain in both upper extremities Neck pain Cervicalgia Imbalance Abnormality of gait Impaired dexterity Acute back pain with sciatica, right Cervicalgia documented in this encounter [facility] note* Diagnosis Cervical myelopathy (HCC)- Primary Cervical spondylosis with myelopathy Cervical stenosis of spine Spinal stenosis in cervical region documented in this encounter [facility] note* Diagnosis Pre-operative examination- Primary Preoperative examination, [...] spondylosis with myelopathy documented in this encounter [facility] note* Diagnosis Presence of surgical incision- Primary [facility] Diagnosis Cervical myelopathy (HCC)- Primary Cervical spondylosis with myelopathy [facility] Diagnosis Fibromyalgia- Primary Mylagia and myositis, unspecified Cervical myelopathy (HCC) Cervical spondylosis with myelopathy [facility]* Diagnosis Cervical stenosis of spine- Primary Spinal stenosis in cervical region [facility] Diagnosis Cervical myelopathy (HCC) Cervical spondylosis with myelopathy [facility] Diagnosis Cervical myelopathy (HCC) Cervical spondylosis with myelopathy [facility]* Diagnosis Toothache- Primary Unspecified disorder of the teeth and supporting structures [facility]* Diagnosis Multiple joint pain Pain in joint, multiple sites Chronic midline low back pain with bilateral sciatica Neck pain Cervicalgia Pre-operative examination- Primary Preoperative examination, unspecified Atrial paroxysmal tachycardia (HCC) Paroxysmal supraventricular tachycardia Anxiety attack Panic disorder without agoraphobia Current smoker Tobacco use disorder Gastroesophageal reflux disease, unspecified whether esophagitis present Class 1 obesity due to excess calories without serious comorbidity with body mass index (BMI) of 30.0 to 30.9 in adult [facility] Finger pain, right Pain in limb [facility] Additional Instructions Ice your foot. Try to stay off of it. Take 3 fyja-[id number] ibuprofen (a total of 600 mg) every 6 hours as needed for pain. You may alternate this with Tylenol.[facility] Work Phone: Hospital Discharge instructions Additional Instructions Thank you for trusting us with your care today! Please take Tylenol (2 pills, 650 mg), ibuprofen (2 pills, 400 mg) every 6 hours as needed for pain and fever control. Please take prednisone as prescribed. Please take Flexeril as needed Please return to the emergency department if your symptoms change or worsen. Specifically develop loss of sensation, loss of movement, severe neck pain. Please follow with your primary care physician and orthopedic surgery for further outpatient evaluation and management.[facility] Work Phone: Hospital Discharge instructions Additional Instructions I would like for you to take a total of 10 days worth of clindamycin. Therefore I have prescribed an additional 5 days to what you are already taking. I have also wrote for some nausea medication. Please also take the anti-inflammatory I have prescribed and the pain medicine as needed.[facility] Work Phone: Hospital Discharge instructions Additional Instructions Percocet for pain. Motrin for pain and inflammation. Follow-up with your primary care physician if not improving because if this is not improving you may need an MRI of your lower back to rule out degenerative disc disease. Your exam and history however go along with sciatica.[facility] Work Phone: Hospital Discharge instructionsAmbulatory Orders* Pain Management Location: None Selected [facility] Work Phone: Patient's home Plan of care note* Visit Details [...] to call 911. 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 documented in this encounter [facility] for referral (narrative)* Diagnostic Procedure Only (Urgent) - Closed Specialty Diagnoses / Procedures Referred By Contac t Referred To Contact XR IMAGING Diagnoses Finger pain, right Procedures XR DIGIT GENERAL 3V FRONTAL/LAT/OBL RIGHT RADEX FINGR MINIMUM 2 VIEWS Tiera Waddell PA-C [address] [place] [address] Xr Imaging Referral ID Status Reason Start Date Expiration Date V isits Requested Visits Authorized [id number] Closed Auto-Generate d Referral 05/21/2021 06/20/2022 1 1 [facility] for referral (narrative)* Outpatient Procedure (Routine) - Closed Specialty Diagnoses / Procedures Referred By Contac t Referred To Contact [facility] Diagnoses Heartburn History of Helicobacter pylori infection Epigastric pain Nausea Dark stools Loose stools Procedures EGD DIAGNOSTIC ESOPHAGOGASTRODUODENOSCO PY TRANSORAL DIAGNOSTIC Lauren Esquivel APRN.CNP [address] [place] [address] [facility] [address] [place] [address] Referral ID Status Reason Start Date Expiration Date V isits Requested Visits Authorized [id number] Closed Auto-Generate d Referral 04/10/2021 04/10/2022 1 1 [facility] for referral (narrative)* Diagnostic Procedure Only (Routine) - Closed Specialty Diagnoses / Procedures Referred By Contac t Referred To Contact XR IMAGING Diagnoses Multiple joint pain Chronic midline low back pain with bilateral sciatica Neck pain Procedures XR CERV OTHER 4V AP/LAT/OBL RADEX SPINE CERVICAL 4 OR 5 VIEWS Divina Key MD [address] [place] [id number] Xr Imaging Referral ID Status Reason Start Date Expiration Date V isits Requested Visits Authorized [id number] Closed Auto-Generate d Referral 03/17/2022 04/16/2023 1 1 * Diagnostic Procedure Only (Routine) - Closed Specialty Diagnoses / Procedures Referred By Contac t Referred To Contact XR IMAGING Diagnoses Multiple joint pain Chronic midline low back pain with bilateral sciatica Neck pain Procedures XR LUMBAR GENERAL 3V AP/LAT/L5-S1 RADEX SPINE LUMBOSACRAL 2/3 VIEWS Divina Key MD [address] [place] [address] Xr Imaging Referral ID Status Reason Start Date Expiration Date V isits Requested Visits Authorized [id number] Closed Auto-Generate d Referral 03/17/2022 04/16/2023 1 1 [facility] for referral (narrative)* Outpatient Procedure (Routine) - Closed Specialty Diagnoses / Procedures Referred By Contac t Referred To Contact [facility] Diagnoses Pre-operative examination Procedures ECG COMPLETE ECG ROUTINE ECG W/LEAST 12 LDS W/I&R Lianet Mas APRN.YING [address] [place] [address] [facility] [address] [place] [id number] Referral ID Status Reason Start Date Expiration Date V isits Requested Visits Authorized [id number] Closed Auto-Generate d Referral 06/04/2022 06/04/2023 1 1 [facility] for referral (narrative)* Diagnostic Procedure Only (Routine) - Pending Review Specialty Diagnoses / Procedures Referred By Contac t Referred To Contact XR IMAGING Diagnoses Cervical myelopathy (HCC) Procedures XR CERV GENERAL 2V AP/LAT RADEX SPINE CERVICAL 2 OR 3 VIEWS Reyes Roy MD [address] [place] [id number] Xr Imaging Referral ID Status Reason Start Date Expiration Date Visits Requested Visits Authorized [id number] Pending Review Auto-Generat ed Referral 11/21/2022 09/20/2023 1 1 [facility] for referral (narrative)* Diagnostic Procedure Only (Routine) - Closed Specialty Diagnoses / Procedures Referred By Contac t Referred To Contact XR IMAGING Diagnoses Fibromyalgia Cervical myelopathy (HCC) Procedures XR CERV GENERAL 2V AP/LAT RADEX SPINE CERVICAL 2 OR 3 VIEWS Divina Key MD [address] [place], [place] [id number] Xr Imaging Referral ID Status Reason Start Date Expiration Date V isits Requested Visits Authorized [id number] Closed Auto-Generate d Referral 09/17/2022 10/17/2023 1 1 [facility] for referral (narrative)* Diagnostic Procedure Only (Routine) - Closed Specialty Diagnoses / Procedures Referred By Contac t Referred To Contact XR IMAGING Diagnoses Cervical myelopathy (HCC) Procedures XR CERV GENERAL 2V AP/LAT RADEX SPINE CERVICAL 2 OR 3 VIEWS Reyes Roy MD [address] [place] [address] Xr Imaging [place] [address] Referral ID Status Reason Start Date Expiration Date V isits Requested Visits Authorized [id number] Closed Auto-Generate d Referral 11/21/2022 09/20/2023 1 1 [facility] for referral (narrative)* Diagnostic Procedure Only (Routine) - Closed Specialty Diagnoses / Procedures Referred By Contac t Referred To Contact XR IMAGING Diagnoses Multiple joint pain Chronic midline low back pain with bilateral sciatica Neck pain Procedures XR CERV OTHER 4V AP/LAT/OBL RADEX SPINE CERVICAL 4 OR 5 VIEWS Divina Key MD [address] [place] [address] [place] [address] Referral ID Status Reason Start Date Expiration Date V isits Requested Visits Authorized [id number] Closed Auto-Generate d Referral 03/17/2022 04/16/2023 1 1 * Diagnostic Procedure Only (Routine) - Closed Specialty Diagnoses / Procedures Referred By Contac t Referred To Contact XR IMAGING Diagnoses Multiple joint pain Chronic midline low back pain with bilateral sciatica Neck pain Procedures XR LUMBAR GENERAL 3V AP/LAT/L5-S1 RADEX SPINE LUMBOSACRAL 2/3 VIEWS Divina Key MD [address] [place], [place] [id number] Xr Imaging [facility]95 Referral ID Status Reason Start Date Expiration Date V isits Requested Visits Authorized [id number] Closed Auto-Generate d Referral 03/17/2022 04/16/2023 1 1 [facility] for referral (narrative)* Diagnostic Procedure Only (Urgent) - Closed Specialty Diagnoses / Procedures Referred By Contac t Referred To Contact XR IMAGING Diagnoses Finger pain, right Procedures XR DIGIT GENERAL 3V FRONTAL/LAT/OBL RIGHT RADEX FINGR MINIMUM 2 VIEWS Tiera Waddell PA-C [address] [place] [address] Xr Imaging [facility]95 Referral ID Status Reason Start Date Expiration Date V isits Requested Visits Authorized [id number] Closed Auto-Generate d Referral 05/21/2021 06/20/2022 1 1 [facility] for referral (narrative)No reason for referral information [facility] Work [facility]: Reason for visit Narrative* Outpatient Procedure (Routine) - Closed Specialty Diagnoses / Procedures Referred By Contac t Referred To Contact [facility] Diagnoses Heartburn History of Helicobacter pylori infection Epigastric pain Nausea Dark stools Loose stools Procedures COLONOSCOPY DIAGNOSTIC COLONOSCOPY FLX DX W/COLLJ SPEC WHEN PFRMD Lauren Esquivel, ASHELY.STUDENT SPECIALIST [address] [place] [address] [facility] [address] [place] [address] Referral ID Status Reason Start Date Expiration Date V isits Requested Visits Authorized [id number] Closed Auto-Generate d Referral 04/10/2021 04/10/2022 1 1 [facility] for visit Narrative* Diagnostic Procedure Only (Routine) - Closed Specialty Diagnoses / Procedures Referred By Contac t Referred To Contact XR IMAGING Diagnoses Cervical myelopathy (HCC) Procedures XR CERV GENERAL 2V AP/LAT RADEX SPINE CERVICAL 2 OR 3 VIEWS Reyes Roy MD [address] [place] [address] [place] [address] Referral ID Status Reason Start Date Expiration Date V isits Requested Visits Authorized [id number] Closed Auto-Generate d Referral 11/21/2022 09/20/2023 1 1 [facility] for visit Narrative* Diagnostic Procedure Only (Urgent) - Closed Specialty Diagnoses / Procedures Referred By Contac t Referred To Contact XR IMAGING Diagnoses Finger pain, right Procedures XR DIGIT GENERAL 3V FRONTAL/LAT/OBL RIGHT RADEX FINGR MINIMUM 2 VIEWS Tiera Waddell PA-C [address] [place] [address] [place] [address] Referral ID Status Reason Start Date Expiration Date V isits Requested Visits Authorized [id number] Closed Auto-Generate d Referral 05/21/2021 06/20/2022 1 1 [facility] Summary Purpose Family History No Family History Records Found Relationship Condition Age at Onset Recorded Date/T lester Not Specified Hypertension Unknown Advance Directives No Advanced Directives Records FoundDocuments on File Type Date Recorded Patient Program Proposals Coordinator Expl anation Advance Directive(s) 05/23/2021 9:59 AM Documents on File Type Date Recorded Patient Program Proposals Coordinator Expl anation Advance Directive(s) 05/23/2021 9:59 AM Advance Directive Response Recorded Date/ Time Living Will No February 22, 2 021 3:36pm Power of Cigar Bander Hand No February 22, 2021 3:36pm Advance Directive Response Recorded Date/ Time Living Will No December 03 10:41am Power of Cigar Bander Hand No December 03, 2021 10:41am Advance Directive Response Recorded Date/ Time Living Will No March 04 12:51pm Power of Cigar Bander Hand No March 04, 2022 12:51pm Latest Code Status on File Code Status [...] Inactivated Comments Full Code 07/07/2022 12:52 PM Advance Directive Response Recorded Date/ Time Living Will No April 12, 2 024 12:51pm Power of Cigar Bander Hand No April 12, 2023 12:51pm Date Activated Date Inactivated Comments 07/07/2022 12:52 PM Advance Directive Response Recorded Date/ Time Living Will No May 10, 2023 9:40am Power of Cigar Bander Hand No May 09 9:40am Advance Directive Response Recorded Date/ Time Living Will No May 20, 2023 2:54pm Power of Cigar Bander Hand No May 19 2:54pm Date Activated Date Inactivated Comments 07/07/2022 12:52 PM Advance Directive Response Recorded Date/ Time Do you have a Healthcare Power of Cigar Bander Hand? No June 16, 2024 6:26am Chief Complaint and Reason for Visit Chief Complaint ENLARGED LYMPH NODES , CERVICALGIA Chief Complaint ENLARGED LYMPH NODES , CERVICALGIA NODULE Chief Complaint ENLARGED LYMPH NODES , CERVICALGIA NODULE THYROID DISORDERS PAIN Chief Complaint NODULE THYROID DISORDERS PAIN FOOT Chief Complaint NUMBNESS Chief Complaint NUMBNESS DENTAL Chief Complaint NUMBNESS DENTAL RIGHT LEG PAIN Chief Complaint Admit Date n/v June 16, 2024 6:2 5am lumbar spine September 30, 2024 2:4 3pm RM 3 September 30, 2024 3:0 2pm Medications Administered Section Active Administered Medications - up to 3 most recent administrations Medication Order MAR Action Action Date Dose Rate Site PHENYLephrine 2.5 % 1 Drop (AK-DILATE, RYNE-SYNEPHRINE) 1 Drop, BOTH EYES, DIRECTED, Starting on Thu12/24/21 at 1000, Until Thu12/24/21 at 2159, Administer for dilation PROTECT FROM LIGHT Given 12/24/2021 9:48 AM EDT 1 Drop proparacaine 0.5 % 1 Drop (ALCAINE) 1 Drop, BOTH EYES, DIRECTED, Starting on Thu12/24/21 at 1000, Until Thu12/24/21 at 2159, Administer for pneumo tonometry, tonopen tonometry, or pachymetry. In the event of a proparacaine shortage, administer tetracaine 0.5% ophthalmic drops 1 drop in the left eye as directed for pneumo tonometry, tonopen tonometry, or pachymetry Given 12/24/2021 9:48 AM EDT 1 Drop tropicamide 1 % 1 Drop (MYDRIACYL) 1 Drop, BOTH EYES, DIRECTED, Starting on Thu12/24/21 at 1000, Until Thu12/24/21 at 2159, Administer for dilation Given 12/24/2021 9:48 AM EDT 1 Drop Reason for Referral Specialty Diagnoses / Procedures Referred By Amos t Referred To Contact MR IMAGING Diagnoses Chronic bilateral low back pain with right-sided sciatica Bladder dysfunction Procedures MRI LUMBAR SPINE WO IVCON MRI SPINAL CANAL LUMBAR W/O CONTRAST MATERIAL Yovany Ahn PA-C [address] [place] [address] Mr Imaging Referral ID Status Reason Start Date Expiration Date Visits Requested Visits Authorized [id number] Pending Review Auto-Generat ed Referral 04/23/2022 05/23/2023 1 1 Specialty Diagnoses / Procedures Referred By Amos t Referred To Contact MR IMAGING Diagnoses Pain in both upper extremities Neck pain Imbalance Bladder dysfunction Impaired dexterity Procedures MRI CERVICAL SPINE WO IVCON MRI SPINAL CANAL CERVICAL W/O CONTRAST MATRL Yovany Ahn PA-C [address] [place] [address] Mr Imaging Referral ID Status Reason Start Date Expiration Date Visits Requested Visits Authorized [id number] Pending Review Auto-Generat ed Referral 04/23/2022 05/23/2023 1 1 Specialty Diagnoses / Procedures Referred By Contac t Referred To Contact [facility] Diagnoses Chronic bilateral low back pain with right-sided sciatica Pain in both upper extremities Neck pain Imbalance Impaired dexterity Procedures CONSULT TO PHYSICAL THERAPY PHYSICAL THERAPY EVALUATION HIGH COMPLEX 45 MINS Yovany Ahn PA-C [address] [place] [address] [facility] [address] [address] Referral ID Status Reason Start Date Expiration Date Visits Requested Visits Authorized [id number] Authorized Auto-Generat ed Referral 04/23/2022 07/23/2022 1 1 Specialty Diagnoses / Procedures Referred By Contac t Referred To Contact [facility] Diagnoses Chronic bilateral low back pain with right-sided sciatica Pain in both upper extremities Neck pain Imbalance Impaired dexterity Acute back pain with sciatica, right Cervicalgia Procedures PT REHAB FOLLOW UP ORDER THERAPEUTIC EXERCISES RE, EA 15 MIN. Pt [facility] [address] [place] [address] [facility] [address] [address] Referral ID Status Reason Start Date Expiration Date Visits Requested Visits Authorized [id number] Pending Review PCP Requested Referral Auto-Generate d Referral 04/29/2022 07/28/2022 1 1 Specialty Diagnoses / Procedures Referred By Contac t Referred To Contact CT IMAGING Diagnoses Cervical myelopathy (HCC) Procedures CT CERVICAL SPINE WO IVCON CT CERVICAL SPINE W/O CONTRAST MATERIAL Reyes Roy MD [address] [place] [address] Ct Imaging [place] [address] Referral ID Status Reason Start Date Expiration Date V isits Requested Visits Authorized [id number] Closed Auto-Generate d Referral 06/04/2022 08/03/2022 1 1 Additional Source Comments INFORMATION SOURCE (unrecogn ized section and content) DATE CREATED AUTHOR 01/30/2021 [facility] DATE CREATED AUTHOR AUTHOR'S ORGANIZ ATION 07/06/2022 [facility] DATE CREATED AUTHOR AUTHOR'S ORGANIZ ATION 05/10/2023 [facility] DATE CREATED AUTHOR AUTHOR'S ORGANSUSANNA ATION 10/30/2024 [facility] Source Comments (unrecognize d section and content) In the event this informatio n is protected by the Federal Confidentiality of Alcohol and Drug Abuse Patient Records regulations: The Federal rules restrict any use of the information to criminally investigate or prosecute any alcohol or drug abuse patient.[facility] Hospital[facility] the event this information is protected by the Federal Confidentiality of Alcohol and Drug Abuse Patient Records regulations: The Federal rules restrict any use of the information to criminally investigate or prosecute any alcohol or drug abuse patient.[facility] Hospital[facility] the event this information is protected by the Federal Confidentiality of Alcohol and Drug Abuse Patient Records regulations: The Federal rules restrict any use of the information to criminally investigate or prosecute any alcohol or drug abuse patient.[facility] HospitalIn the event this information is protected by the Federal Confidentiality of Alcohol and Drug Abuse Patient Records regulations: The Federal rules restrict any use of the information to criminally investigate or prosecute any alcohol or drug abuse patient.[facility] Hospital[facility] the event this information is protected by the Federal Confidentiality of Alcohol and Drug Abuse Patient Records regulations: The Federal rules restrict any use of the information to criminally investigate or prosecute any alcohol or drug abuse patient.[facility] Hospital[facility] the event this information is protected by the Federal Confidentiality of Alcohol and Drug Abuse Patient Records regulations: The Federal rules restrict any use of the information to criminally investigate or prosecute any alcohol or drug abuse patient.[facility] HospitalIn the event this information is protected by the Federal Confidentiality of Alcohol and Drug Abuse Patient Records regulations: The Federal rules restrict any use of the information to criminally investigate or prosecute any alcohol or drug abuse patient.[facility] Hospital[facility] the event this information is protected by the Federal Confidentiality of Alcohol and Drug Abuse Patient Records regulations: The Federal rules restrict any use of the information to criminally investigate or prosecute any alcohol or drug abuse patient.[facility] HospitalIn the event this information is protected by the Federal Confidentiality of Alcohol and Drug Abuse Patient Records regulations: The Federal rules restrict any use of the information to criminally investigate or prosecute any alcohol or drug abuse patient.[facility] HospitalIn the event this information is protected by the Federal Confidentiality of Alcohol and Drug Abuse Patient Records regulations: The Federal rules restrict any use of the information to criminally investigate or prosecute any alcohol or drug abuse patient.[facility] HospitalIn the event this information is protected by the Federal Confidentiality of Alcohol and Drug Abuse Patient Records regulations: The Federal rules restrict any use of the information to criminally investigate or prosecute any alcohol or drug abuse patient.[facility] Hospital[facility] the event this information is protected by the Federal Confidentiality of Alcohol and Drug Abuse Patient Records regulations: The Federal rules restrict any use of the information to criminally investigate or prosecute any alcohol or drug abuse patient.[facility] HospitalIn the event this information is protected by the Federal Confidentiality of Alcohol and Drug Abuse Patient Records regulations: The Federal rules restrict any use of the information to criminally investigate or prosecute any alcohol or drug abuse patient.[facility] HospitalIn the event this information is protected by the Federal Confidentiality of Alcohol and Drug Abuse Patient Records regulations: The Federal rules restrict any use of the information to criminally investigate or prosecute any alcohol or drug abuse patient.[facility] HospitalIn the event this information is protected by the Federal Confidentiality of Alcohol and Drug Abuse Patient Records regulations: The Federal rules restrict any use of the information to criminally investigate or prosecute any alcohol or drug abuse patient.[facility] HospitalIn the event this information is protected by the Federal Confidentiality of Alcohol and Drug Abuse Patient Records regulations: The Federal rules restrict any use of the information to criminally investigate or prosecute any alcohol or drug abuse patient.[facility] HospitalIn the event this information is protected by the Federal Confidentiality of Alcohol and Drug Abuse Patient Records regulations: The Federal rules restrict any use of the information to criminally investigate or prosecute any alcohol or drug abuse patient.[facility] HospitalIn the event this information is protected by the Federal Confidentiality of Alcohol and Drug Abuse Patient Records regulations: The Federal rules restrict any use of the information to criminally investigate or prosecute any alcohol or drug abuse patient.[facility] HospitalIn the event this information is protected by the Federal Confidentiality of Alcohol and Drug Abuse Patient Records regulations: The Federal rules restrict any use of the information to criminally investigate or prosecute any alcohol or drug abuse patient.[facility] HospitalIn the event this information is protected by the Federal Confidentiality of Alcohol and Drug Abuse Patient Records regulations: The Federal rules restrict any use of the information to criminally investigate or prosecute any alcohol or drug abuse patient.[facility] HospitalIn the event this information is protected by the Federal Confidentiality of Alcohol and Drug Abuse Patient Records regulations: The Federal rules restrict any use of the information to criminally investigate or prosecute any alcohol or drug abuse patient.[facility] HospitalIn the event this information is protected by the Federal Confidentiality of Alcohol and Drug Abuse Patient Records regulations: The Federal rules restrict any use of the information to criminally investigate or prosecute any alcohol or drug abuse patient.[facility] HospitalIn the event this information is protected by the Federal Confidentiality of Alcohol and Drug Abuse Patient Records regulations: The Federal rules restrict any use of the information to criminally investigate or prosecute any alcohol or drug abuse patient.[facility] HospitalIn the event this information is protected by the Federal Confidentiality of Alcohol and Drug Abuse Patient Records regulations: The Federal rules restrict any use of the information to criminally investigate or prosecute any alcohol or drug abuse patient.[facility] HospitalIn the event this information is protected by the Federal Confidentiality of Alcohol and Drug Abuse Patient Records regulations: The Federal rules restrict any use of the information to criminally investigate or prosecute any alcohol or drug abuse patient.[facility] HospitalIn the event this information is protected by the Federal Confidentiality of Alcohol and Drug Abuse Patient Records regulations: The Federal rules restrict any use of the information to criminally investigate or prosecute any alcohol or drug abuse patient.[facility] HospitalIn the event this information is protected by the Federal Confidentiality of Alcohol and Drug Abuse Patient Records regulations: The Federal rules restrict any use of the information to criminally investigate or prosecute any alcohol or drug abuse patient.[facility] HospitalIn the event this information is protected by the Federal Confidentiality of Alcohol and Drug Abuse Patient Records regulations: The Federal rules restrict any use of the information to criminally investigate or prosecute any alcohol or drug abuse patient.[facility] HospitalIn the event this information is protected by the Federal Confidentiality of Alcohol and Drug Abuse Patient Records regulations: The Federal rules restrict any use of the information to criminally investigate or prosecute any alcohol or drug abuse patient.[facility] HospitalIn the event this information is protected by the Federal Confidentiality of Alcohol and Drug Abuse Patient Records regulations: The Federal rules restrict any use of the information to criminally investigate or prosecute any alcohol or drug abuse patient.[facility] HospitalIn the event this information is protected by the Federal Confidentiality of Alcohol and Drug Abuse Patient Records regulations: The Federal rules restrict any use of the information to criminally investigate or prosecute any alcohol or drug abuse patient.[facility] HospitalIn the event this information is protected by the Federal Confidentiality of Alcohol and Drug Abuse Patient Records regulations: The Federal rules restrict any use of the information to criminally investigate or prosecute any alcohol or drug abuse patient.[facility] HospitalIn the event this information is protected by the Federal Confidentiality of Alcohol and Drug Abuse Patient Records regulations: The Federal rules restrict any use of the information to criminally investigate or prosecute any alcohol or drug abuse patient.[facility] HospitalIn the event this information is protected by the Federal Confidentiality of Alcohol and Drug Abuse Patient Records regulations: The Federal rules restrict any use of the information to criminally investigate or prosecute any alcohol or drug abuse patient.[facility] HospitalIn the event this information is protected by the Federal Confidentiality of Alcohol and Drug Abuse Patient Records regulations: The Federal rules restrict any use of the information to criminally investigate or prosecute any alcohol or drug abuse patient.[facility] Reason for Visit (unrecogniz ed section and content) Reason Comments Results Reason Comments Pain (RT) index finger pa [...] Eval Specialty Diagnoses / Procedures Referred By Amos t Referred To Contact [facility] Diagnoses Chronic bilateral low back pain with right-sided sciatica Pain in both upper extremities Neck pain Imbalance Impaired dexterity Procedures CONSULT TO PHYSICAL THERAPY PHYSICAL THERAPY EVALUATION HIGH COMPLEX 45 MINS Yovany Ahn PA-C [address] [place] [address] [facility] [address] [place] [address] Referral ID Status Reason Start Date Expiration Date V isits Requested Visits Authorized [id number] Closed Auto-Generate d Referral 04/23/2022 07/23/2022 1 1 Reason Comments New Patient Reason Comments surgery scheduling Reason Comments Appointment Reason Comments Consult Reason Comments Patient Update Reason Comments Forms Reason Comments preop info Specialty Diagnoses / Procedures Referred By Amos t Referred To Contact [facility] [address] [place] [id number] Referral ID Status Reason Start Date Expiration Date Visits Re quested Visits Authorized [id number] 1 1 Reason Comments Post Op Reason Comments Patient Question Reason Comments Joint Pain Reason Comments Established Patient Reason Comments Radiology CT Specialty Diagnoses / Procedures Referred By Amos t Referred To Contact CT IMAGING Diagnoses Cervical myelopathy (HCC) Procedures CT CERVICAL SPINE WO IVCON CT CERVICAL SPINE W/O CONTRAST MATERIAL Reyes Roy MD [address] [place] [address] [place] [address] Referral ID Status Reason Start Date Expiration Date V isits Requested Visits Authorized [id number] Closed Auto-Generate d Referral 06/04/2022 08/03/2022 1 1 Reason Comments Pain, Sinus Sinus pain and press ure-possibly a tooth ache x 4 days Reason Comments Radio Gen P Radiology Service Pr ogress NotePATIENT NAME: Tammy AnnaMRN: [id number] OF SERVICE: March 17, 2022TIME: 1:53 PMPATIENT IDENTITY VERIFICATION COMPLETED USING TWO (2) IDENTIFIERS: Name and Date of confirmed by patient verbally.FALL SCREENING: Has the patient had 2 falls in the last year or 1 fall with injury or currently using an Ambulatory Assistive Device (Walker, Cane, Wheelchair, Crutches, etc.)? NoPATIENT GENDER DATA: Female. status: : No Specialty Diagnoses / Procedures Referred By Contac t Referred To Contact XR IMAGING Diagnoses Multiple joint pain Chronic midline low back pain with bilateral sciatica Neck pain Procedures XR CERV OTHER 4V AP/LAT/OBL RADEX SPINE CERVICAL 4 OR 5 VIEWS Divina Key MD [address] [place] [address] [place] [address] Referral ID Status Reason Start Date Expiration Date V isits Requested Visits Authorized [id number] Closed Auto-Generate d Referral 03/17/2022 04/16/2023 1 1 Care Teams (unrecognized sec tion and content) Pet Store Merchandiser Relationship Specialty Start Date End Date Lauren Daniel PCP - [facility] 10/05/18 Dipak Henao MD [address] [place], [place] [address] [place], [place] [id number] [facility] 03/09/20 Pet Store Merchandiser Relationship Specialty Start Date End Date Lauren Daniel PCP - [facility] 10/05/18 Dipak Henao MD [address] [facility] [place], [place] [id number] [facility] 03/09/20 Pet Store Merchandiser Relationship Specialty Start Date End Date RenejadyntCheryldi L PCP - [facility] 10/05/18 Dipak Henao MD [address] [place] [address], [place] [address] [facility] 03/09/20 Pet Store Merchandiser Relationship Specialty Start Date End Date Genevat Lauren L PCP - General Family Practice 10/05/18 Dipak Henao MD [address] [place] [address], [place] [address] [facility] 03/09/20 Pet Store Merchandiser Relationship Specialty Start Date End Date Lauren Daniel L PCP - General Family Practice 10/05/18 Dipak Henao MD [address] [place] [address], [place] [address] [facility] 03/09/20 Pet Store Merchandiser Relationship Specialty Start Date End Date Lauren Daniel PCP - [facility] Family [facility] 10/05/18 Dipak Henao MD [address] [place] [address], [place] [address] [facility] 03/09/20 Pet Store Merchandiser Relationship Specialty Start Date End Date RenejadyntLauren L PCP - General Family Practice 10/05/18 Dpiak Henao MD [address] [place] [address], [place] [address] [facility] 03/09/20 Pet Store Merchandiser Relationship Specialty Start Date End Date Lauren Daniel PCP - General Family Practice 10/05/18 Dipak Henao MD [address] [place] [address] [facility] 03/09/20 Pet Store Merchandiser Relationship Specialty Start Date End Date Lauren Daniel PCP - General Family Practice 10/05/18 Dipak Heano MD [address] [facility] [place] [address] [facility] 03/09/20 Pet Store Merchandiser Relationship Specialty Start Date End Date Tonya Arriaga STUDENT SPECIALIST [address] [facility] [place] [address] PCP - General Internal Medicine 12/12/21 Lauren Daniel Family Medicine 12/12/21 Dipak Henao MD [address] [facility] [place] [place] [address] [facility] 03/09/20 Carter Pierce MD [address] [place] [address] Referring Family Medicine 12/07/21 Melania Petty NP Family Medicine 12/12/21 Pet Store Merchandiser Relationship Specialty Start Date End Date Tonya Arriaga, STUDENT SPECIALIST [address] [facility] [place] [address] PCP - General Internal Medicine 12/12/21 Lauren Daniel [address] [facility] [place] [address] Family Medicine 12/12/21 Dipak Henao MD [address] [facility] [place] [address] [facility] 03/09/20 Carter Pierce(Historical), [address] [place] [address] Referring Family Medicine 12/07/21 Melania Petty NP [address] [place] [address] Family Medicine 12/12/21 Pet Store Merchandiser Relationship Specialty Start Date End Date Tonya Arriaga, STUDENT SPECIALIST [address] [place] [address] PCP - General Internal Medicine 12/12/21 Lauren Daniel [address] [place] [address] Family Medicine 12/12/21 Dipak Henao MD [address] [place] [address] [facility] Family Medicine 03/09/20 Carter Pierce(Historical), [address] [place] [place] [address] Referring Family Medicine 12/07/21 Melania Petty, DIAMOND SAW OPERATOR [address] [place] [address] Family Medicine 12/12/21 Pet Store Merchandiser Relationship Specialty Start Date End Date Tonya Arriaga, STUDENT SPECIALIST [address] [place] [address] PCP - General Internal Medicine 12/12/21 Lauren Daniel [address] [place] [address] Family Medicine 12/12/21 Dipak Henao MD [address] [place] [address] [facility] Family Medicine 03/09/20 Carter Pierce(Historical), [address] [place] [address] Referring Family Medicine 12/07/21 Melania Petty, DIAMOND SAW OPERATOR [address] [place] [address] Family Medicine 12/12/21 Pet Store Merchandiser Relationship Specialty Start Date End Date Tonya Arriaga STUDENT SPECIALIST [address] [place] [address] PCP - General Internal Medicine 12/12/21 Lauren Daniel [address] [place] [address] Family Medicine 12/12/21 Dipak Henao MD [address] [place] [address] [facility] Family Medicine 03/09/20 Carter Pierce(Historical), [address] [place] [place] [address] Referring Family Medicine 12/07/21 Melania Petty NP [address] [place] [address] Family Medicine 12/12/21 Pet Store Merchandiser Relationship Specialty Start Date End Date Tonya Arriaga STUDENT SPECIALIST [address] [place] [address] PCP - General Internal Medicine 12/12/21 Lauren Daniel [address] [place] [address] Family Medicine 12/12/21 Dipak Henao MD [address] [facility] [place] [address] [facility] Family [facility] 03/09/20 Carter Pierce(Historical), [address] [place] [address] Referring Family Medicine 12/07/21 Melania Petty NP [address] [place] [address] Family Medicine 12/12/21 Pet Store Merchandiser Relationship Specialty Start Date End Date Tonya Arriaga STUDENT SPECIALIST [address] [place] [address] PCP - General Internal Medicine 12/12/21 Lauren Daniel [address] [place] [address] Family Medicine 12/12/21 Dipak Henao MD [address] [facility] [place] [address] [facility] Family Medicine 03/09/20 Carter Pierce(Historical), [address] [place] [address] Referring Family Medicine 12/07/21 Melania Petty NP [address] [place] [place] [address] Family Medicine 12/12/21 Pet Store Merchandiser Relationship Specialty Start Date End Date Tonya Arriaga, STUDENT SPECIALIST [address] [place] [address] PCP - General Internal Medicine 12/12/21 Lauren Daniel [address] [place] [address] Family Medicine 12/12/21 Dipak Henao MD [address] [facility] [place] [address] [facility] Family [facility] 03/09/20 Carter Pierce(Historical), [address] [place] [address] Referring Family Medicine 12/07/21 Melania Petty NP [address] [place] [address] Family Medicine 12/12/21 Pet Store Merchandiser Relationship Specialty Start Date End Date Tonya Arriaga, STUDENT SPECIALIST [address] [place] [address] PCP - General Internal Medicine 12/12/21 Lauren Daniel [address] [place] [address] Family Medicine 12/12/21 Dipak Henao MD [address] [facility] [place] [place] [address] [facility] 03/09/20 Carter Pierce(Historical), [address] [facility] [place] [address] Referring Family Medicine 12/07/21 Melania Petty NP [address] [facility] [place] [address] Family Medicine 12/12/21 Pet Store Merchandiser Relationship Specialty Start Date End Date Tonya Arriaga, STUDENT SPECIALIST [address] [facility] [place] [address] PCP - General Internal Medicine 12/12/21 Lauren Daniel [address] [facility] [place] [address] Family Medicine 12/12/21 Dipak Henao MD [address] [facility] [place] [place] [address] [facility] 03/09/20 Carter Pierce(Historical), [address] [facility] [place] [address] Referring Family Medicine 12/07/21 Melania Petty NP [address] [facility] [place] [place] [address] Family Medicine 12/12/21 Reyes Roy MD [address] [place] [address] Home Care Provider Neurosurgery 07/05/22 Wilmer Choi PA-C [address] [place] [address] Referring Neurosurgery 07/05/22 Amarilis Molina, PT [address] [place], [place] [phone] [facility] 07/05/22 Pet Store Merchandiser Relationship Specialty Start Date End Date Tonya Arriaga CNP [address] [place] [address] PCP - General Internal Medicine 12/12/21 Lauren Daniel [address] [place] [address] Family Medicine 12/12/21 Dipak Henao MD [address] [place] [address] [facility] Family [facility] 03/09/20 Carter Pierce(Historical), [address] [place] [address] Referring Family Medicine 12/07/21 Melania Petty NP [address] [place] [address] Family Medicine 12/12/21 Reyes Roy MD [address] [place], [place] [id number] Home Care Provider Neurosurgery 07/05/22 Wilmer Choi PA-C [address] [place], [place] [phone] Referring Neurosurgery 07/05/22 Amarilis Molina, PT [address] [place] [address] [facility] 07/05/22 Pet Store Merchandiser Relationship Specialty Start Date End Date Tonya Arriaga CNP [address] [place] [address] PCP - General Internal Medicine 12/12/21 Lauren Daniel [address] [place] [address] Family Medicine 12/12/21 Dipak Henao MD [address] [place] [address] [facility] Family [facility] 03/09/20 Carter Pierce(Historical), [address] [place] [address] Referring Family Medicine 12/07/21 Melania Petty, JAYME [address] [place] [address] Family Medicine 12/12/21 Reyes Roy MD [address] [place] [address] Home Care Provider Neurosurgery 07/05/22 Wilmer Choi PA-C [address] [place], [place] [phone] Referring Neurosurgery 07/05/22 Amarilis Molina, PT [address] [place] [address] [facility] 07/05/22 Pet Store Merchandiser Relationship Specialty Start Date End Date Tonya Arriaga, STUDENT SPECIALIST [address] [place] [address] PCP - General Internal Medicine 12/12/21 Lauren Daniel [address] [place] [address] Family Medicine 12/12/21 Dipak Henao MD [address] [place] [address] [facility] 03/09/20 Carter Pierce(Historical), [address] [place] [address] Referring Family Medicine 12/07/21 Melania Petty, JAYME [address] [place] [address] Family Medicine 12/12/21 Reyes Roy MD [address] [place] [address] Home Care Provider Neurosurgery 07/05/22 Wilmer Choi PA-C [address] [place], [place] [phone] Referring Neurosurgery 07/05/22 Amarilis Molina, PT [address] [place], [place] [phone] [facility] 07/05/22 Pet Store Merchandiser Relationship Specialty Start Date End Date Tonya Arriaga, STUDENT SPECIALIST [address] [facility] [place] [address] PCP - General Internal Medicine 12/12/21 Lauren Daniel [address] [facility] [place] [address] Family Medicine 12/12/21 Dipak Henao MD [address] [facility] [place] [address] [facility] 03/09/20 Carter Pierce(Historical)MD [address] [facility] [place] [place] [address] Referring Family Medicine 12/07/21 Melania Petty, JAYME [address] [place] [address] Family Medicine 12/12/21 Reyes Roy MD [address] [place] [address] Home Care Provider Neurosurgery 07/05/22 Wilmer Choi PA-C [address] [place] [address] Referring Neurosurgery 07/05/22 Amarilis Molina, PT [address] [place] [address] [facility] 07/05/22 Pet Store Merchandiser Relationship Specialty Start Date End Date Tonya Arriaga, STUDENT SPECIALIST [address] [facility] [place] [address] PCP - General Internal Medicine 12/12/21 Lauren Daniel [address] [place] [address] Family Medicine 12/12/21 Dipak Henao MD [address] [place] [address] [facility] 03/09/20 Carter Pierce(Historical)MD [address] [place] [address] Referring Family Medicine 12/07/21 Melania Petty, DIAMOND SAW OPERATOR [address] [place] [address] Family Medicine 12/12/21 Reyes Roy MD [address] [place], [place] [id number] Home Care Provider Neurosurgery 07/05/22 Wilmer Choi PA-C [address] [place], [place] [phone] Referring Neurosurgery 07/05/22 Amarilis Molina, PT [address] [place], [place] [phone] [facility] 07/05/22 Pet Store Merchandiser Relationship Specialty Start Date End Date Tonya Arriaga CNP [address] [place] [address] PCP - General Internal Medicine 12/12/21 Lauren Daniel [address] [place] [address] Family Medicine 12/12/21 Dipak Henao MD [address] [place] [address] [facility] 03/09/20 Carter Pierce(Historical)MD [address] [place] [address] Referring Family Medicine 12/07/21 Melania Petty NP [address] [place] [address] Family Medicine 12/12/21 Reyes Roy MD [address] [place] [address] [id number] Home Care Provider Neurosurgery 07/05/22 Wilmer Choi PA-C [address] [place] [address] [phone] Referring Neurosurgery 07/05/22 Amarilis Molina, PT [address] [place], [place] [phone] [facility] 07/05/22 Pet Store Merchandiser Relationship Specialty Start Date End Date Tonya Arriaga, YING [address] [place] [address] PCP - General Internal Medicine 12/12/21 Lauren Daniel [address] [place] [address] Family Medicine 12/12/21 Dipak Henao MD [address] [place] [address] [facility] 03/09/20 Carter Pierce(Historical)MD [address] [place] [address] Referring Family Medicine 12/07/21 Melania Petty NP [address] [place] [address] Family Medicine 12/12/21 Reyes Roy MD [address] [place] [address] [id number] Home Care Provider Neurosurgery 07/05/22 Wilmer Choi PA-C [address] [place], [place] [phone] Referring Neurosurgery 07/05/22 Amarilis Molina, PT [address] [place], [place] [phone] [facility] 07/05/22 Pet Store Merchandiser Relationship Specialty Start Date End Date Tonya Arriaga, YING [address] [place] [address] PCP - General Internal Medicine 12/12/21 Lauren Daniel [address] [place] [address] Family Medicine 12/12/21 Dipak Henao MD [address] [place] [address] [facility] 03/09/20 Carter Pierce(Historical)MD [address] [place] [address] Referring Family Medicine 12/07/21 Melania Petty NP [address] [place] [address] Family Medicine 12/12/21 Reyes Roy MD [address] [place] [address] Home Care Provider Neurosurgery 07/05/22 Wilmer Choi PA-C [address] [place], [place] [phone] Referring Neurosurgery 07/05/22 Amarilis Molina, PT [address] [place], [place] [phone] [facility] 07/05/22 Pet Store Merchandiser Relationship Specialty Start Date End Date Tonya Arriaga CNP [address] [facility] [place] [address] PCP - General Internal Medicine 12/12/21 Lauren Daniel [address] [facility] [place] [address] Family Medicine 12/12/21 Dipak Henao MD [address] [facility] [place] [address] [facility] 03/09/20 Carter Pierce(Historical)MD [address] [facility] [place] [address] Referring Family Medicine 12/07/21 Melania Petty NP [address] [facility] [place] [address] [facility] Medicine 12/12/21 Team Status: Active Member Role Status Dates Dr. Giancarlo Olivas Family Provider Active [facility] Primary Care Provider A ctive Team Status: Inactive Member Role Status Dates [facility] Primary Care Provider A ctive Dr. Papo Peterson , DO Emergency Provider Active [employer] Merch[employer] Relationship Specialty Start Date End Date Tonya Arriaga CNP [address] [facility] [place] [address] PCP - General Internal Medicine 12/12/21 Lauren Daniel [address] [facility] [place] [address] Family Medicine 12/12/21 Dipak Henao MD [address] [facility] [place] [address] [facility] 03/09/20 Carter Pierce(Historical)MD [address] [place] [address] Referring Family Medicine 12/07/21 Melania Petty NP [address] [place] [address] Family Medicine 12/12/21 Reyes Roy MD [address] [place], [place] [phone] Home Care Provider Neurosurgery 07/05/22 Wilmer Choi PA-C [address] [place], [place] [phone] Referring Neurosurgery 07/05/22 Amarilis Molina, PT [address] [place] [address] [facility] 07/05/22 Team Status: Inactive Member Role Status Dates [facility] Primary Care Provider A ctive Dr. Papo Peterson DO Attending Provider, Emergency P rovider Active Team Status: Inactive Member Role Status Dates [facility] Primary Care Provider A ctive Dr. Kota Saha DO Emergency Provider Active Team Status: Inactive Member Role Status Dates [facility] Primary Care Provider A ctive Dr. Lance Betancourt MD Emergency Provider Active Team Status: Inactive Member Role Status Dates [facility] Primary Care Provider A ctive Dr. Kota Saha DO Attending Provider, Emergency P rovider Active [employer] Mer[employer] Relationship Specialty Start Date End Date Lauren Daniel, STUDENT SPECIALIST PCP - General Family Medicine 10/05/18 12/11/21 Dipak Henao MD [address] [place] [address] [facility] 03/09/20 Team Status: Active Member Role/Relationship Status Dates [facility] Primary Care Provider A ctive Team Status: Inactive Member Role/Relationship Status Dates [facility] Primary Care Provider A ctive Start: June 16, 2024 End: June 16, 2024 Dr. Yung Wright DO Attending Provider Active Start: June 16, 2024 End: June 16, 2024 Dr. Yung Wright , Emergency Provider Active Start: June 16, 2024 End: June 16, 2024 Team Status: Active Member Role/Relationship Status Dates [facility] Primary Care Provider A ctive Start: September 30, 2024 [facility] Referring Provider Acti ve Start: September 30, 2024 SEBASTIAN Luis Attending Provider Active Star t: September 30, 2024 Team Status: Inactive Member Role/Relationship Status Dates [facility] Primary Care Provider A ctive Start: September 30, 2024 End: September 30, 2024 Dr. Abel Atkins MD Attending Provider Active S tart: September 30, 2024 End: September 30, 2024 Team Status: Inactive Member Role/Relationship Status Dates [facility] Primary Care Provider A ctive Start: September 30, 2024 End: September 30, 2024 [facility] Referring Provider Acti ve Start: September 30, 2024 End: September 30, 2024 SEBASTIAN Luis Attending Provider Active Star t: September 30, 2024 End: September 30, 2024 Goals (unrecognized section and content) Goals may be documented in a n alternate sectionGoals may be documented in an alternate sectionGoals may be documented in an alternate sectionGoals may be documented in an alternate sectionGoals may be documented in an alternate sectionGoals may be documented in an alternate sectionGoals may be documented in an alternate sectionGoals may be documented in an alternate sectionGoals may be documented in an alternate sectionGoals may be documented in an alternate sectionGoals may be documented in an alternate sectionGoals may be documented in an alternate sectionGoals may be documented in an alternate section FOR RECORDS PERTAINING TO PATIENTS WHO ARE [...] BE BASED ON THE PRIMARY CLINICAL RECORDS. [employer] [facility]. provides no warranty or guarantee of the accuracy or completeness of information in this document.
[2024-10-31 22:47] VITALS: BP 116/82; PULSE 67; RESP 18; TEMP 36.6; O2SAT 97
== END 2024-10-31 23:04 | disposition home or self-care (01) ==
LOC: ED 22:10
PROVIDERS: Emergency Provider Emergency Medicine; Visit Provider Emergency Medicine
DX: S46.212A Strain of muscle, fascia and tendon of other parts of biceps, left arm, initial encounter (principal); X50.0XXA Overexertion from strenuous movement or load, initial encounter; F17.210 Nicotine dependence, cigarettes, uncomplicated
CPT/HCPCS: 73030; 96372; 99282

== ENCOUNTER → 2024-11-01 | Outpatient (CLI) | payer OTHER, SELFPAY ==
--- NOTE | 2024-11-01 08:55 | MRI_ITS ---
PROCEDURE: SPINE LUMBAR (ROUTINE) 11/01/2024 REASON FOR EXAM: PAIN, LEFT RADICULOPATHY WORSENING X6M TECHNIQUE: Procedure Code: MRISPL Modality: MR Procedure: SPINE LUMBAR (ROUTINE) COMPARISON: Lumbar spine series of 09/30/2024. FINDINGS: Vertebrae: Numerous chronic appearing Schmorl's nodes are seen. No acute osseous changes are seen. On sagittal imaging, disc narrowing is again seen of the L4-L5 and L5-S1 levels. Alignment: No significant subluxation is seen. Conus Medullaris: Unremarkable appearance, terminating at the L1-L2 level. L1-2: Unremarkable L2-3: Unremarkable L3-4: Mild posterior facet and ligamentum flavum hypertrophy is seen. No significant spinal canal stenosis or neural foraminal narrowing is seen. L4-5: Superimposed upon a mild diffuse disc bulge is seen a moderate-sized left disc protrusion. This results in moderate left neural foraminal narrowing. No significant spinal canal stenosis is seen. L5-S1: Mild vertebral body osteophytosis is seen. Mild posterior facet and ligamentum flavum hypertrophy is seen. A mild diffuse disc bulge is noted. This results in moderate right neural foraminal narrowing. No definite left neural foraminal narrowing is seen. No significant spinal canal stenosis is noted. Sacrum: Unremarkable, in visualized areas. MRI/Spine Lumbar (Routine) IMPRESSION: Lower lumbar degenerative disc disease, as described. Reading Location: [place] [id number]
== END | disposition home or self-care (01) ==
PROVIDERS: Referring Provider Student in an Organized Health Care Education/Training Program; Visit Provider Student in an Organized Health Care Education/Training Program
DX: M54.16 Radiculopathy, lumbar region (principal)
CPT/HCPCS: 72148

== ENCOUNTER 2024-12-07 18:14 | Emergency (ER) | payer OTHER, SELFPAY ==
[2024-12-07 18:15] VITALS: BP 131/97; PULSE 106; RESP 24; TEMP 36.1; O2SAT 97; BMI 29.8
--- NOTE | 2024-12-07 18:20 | RAD_ITS ---
PROCEDURE: LEFT FOOT MIN 3 VIEWS 12/07/2024 REASON FOR EXAM: PAIN TECHNIQUE: Procedure Code: RADFO Modality: DX Procedure: FOOT MIN 3 VIEWS Laterality: Left COMPARISON: 03/04/2022 FINDINGS: No acute fracture or dislocation. Alignment is anatomic. Preserved joint spaces. Tiny calcaneal spurs noted. No marked soft tissue swelling or radiopaque foreign body. RAD/Foot min 3 Views IMPRESSION: No acute fracture or dislocation. Reading Location: [id number]
--- OUTSIDE RECORDS SUMMARY | 2024-12-07 20:22 | XMS RPT_ITS | CCD ---
Author Organization [facility] Care Team Providers Care Front Office Secretary Name Role Phone Lauren Daniel Primary Care Provider Dipak Henao MD Unavailable Tonya Arriaga CNP Primary Care Provider Lauren Danile Unavailable Dipak Henao MD Unavailable Carter Pierce MD Unavailable Jovanny DELACRUZ, Melania Unavailable Tonya Arriaga CNP Primary Care Provider Lauren Daniel Unavailable Dipak Henao MD Unavailable Stan KWAN, Carter Beckman(Historical) Unavailable Liza vailable Jovanny DELACRUZ, Melania Unavailable REYSE ROY Admitting Unavailable REYES ROY Attending Unavailable ARRIAGA, TONYA K Primary Care Unavailable VALDEMAR FAJARDO Consulting Unavailable Reyes Roy MD Unavailable Wilmer Choi PA-C Unavailable Amarilis Molina PT Unavailable Dipak Henao MD Unavailable Dipak Henao MD Unavailable Amarilis Molina PT Unavailable Jovanny DELACRUZ, Melania Unavailable ARRIAGA TONYA K Primary Care Unavailable ARRIAGA TONYA K Primary Care Unavailable YOVANY AHN Referring Unavailable ARRIAGA, TONYA K Primary Care Unavailable GODFRAY, YOVANY Attending Unavailable ARRIAGA, TONYA K Primary Care Unavailable MANUELA, REYES Attending Unavailable GODFRAY, YOVANY Referring Unavailable ARRIAGA, TONYA K Primary Care Unavailable MANUELA, REYES Referring Unavailable ARRIAGA, TONYA K Primary Care Unavailable MANUELA, REYES Referring Unavailable ARRIAGA, TONYA K Primary Care Unavailable LIANET MAS S Referring Unavailable MANUELA, REYES Referring Unavailable ARRIAGA, [...] Referring Unavailable MANUELA, REYES Attending Unavailable Arriaga ELECTRIC MOTOR AND GENERATOR ASSEMBLER, Tonya K Primary Care Provider Lauren Daniel CNP Primary Care Provider [facility] Yung GOODWIN Emergency Provider [facility] Referring Provid er Jessica Villatoro Attending Provider Milly KWAN, Dr. Roman Attending Provider [facility] Primary Care Pro vider Care Physician, No Primary Primary Care Provider Unavailable Joe KWAN, Dr. Benites Emergency Provider Kamari Diaz Attending Unavailable Care Physician, No Primary Primary Care Unava ilable Jessica Damico Referring Unavailable Jessica Damico Attending Unavailable Care Physician, No Primary Primary Care Unava ilable [facility], [facility] Primary Care Unavailable Abel Atkins Attending Unavailable Jessica Damico Attending Unavailable Care Physician, No Primary Referring Unava ilable Care Physician, No Primary Primary Care Unava ilable Jessica Damico Attending Unavailable [facility] Referring Unavailable [facility] Primary Care Unavailable Yung Wright Attending Unavailable [facility] Primary Care Unavailable Henry Ventura Attending Unavailable [facility] [place] Primary Care Unavailable Damari Beyer Attending [facility] [place], [facility] Primary Care Unavailable [facility] Primary Care Phy sician Jessica Villatoro Attending Physician Milly KWAN, Dr. Roman Attending Physician Care Physician, No Primary Primary Care Physicia n Unavailable Joe KWAN, Dr. Benites Attending Physician Dr. Kamari Diaz MD Emergency Department Phys ician Jessica Villatoro Referring Provider Allergies Allergy Classification Reported Allergen(s) Allergy Type Date of Onset Reaction(s) Facility (14 sources) Penicillins; Translations: [PENICILLINS] Drug Allergy 10-05-2018 Anaphylaxis [facility] (12 sources) Penicillins Allergy to substance 02-22-2021 Anaphylaxis [facility] (20 sources) Penicillins Drug Allergy 10-05-2018 Anaphylaxis [facility] (1 source) Penicillins Drug allergy (disorder) 10-31-2024 [facility] Repository Medications Current Medications Medication Drug Class(es) Dates Sig (Normalized) Sig (Original) loratadine 10 mg oral tablet (20 sources) Start: 10-16-2021 take 1 tablet by mouth once daily loratadine (CLARITIN) 10 mg tablet Take 10 mg by mouth once daily. 10/16/2021 Active Comment on above: Take 10 mg by mouth once daily. meloxicam 15 mg oral tablet (2 sources) Nonsteroidal Anti-inflammatory Drug Start: 10-31-2024 take 1 tablet by mouth once daily as needed for pain methocarbamol 750 mg oral tablet (1 source) Muscle Relaxant Start: 07-05-2022 End: 07-12-2022 take 1 tablet by mouth every six hours as needed methocarbamol (ROBAXIN) 750 mg tablet Take 1 tablet by mouth four times daily as needed for up to 7 days. 28 tablet 0 07/05/2022 07/12/2022 Active Comment on above: Take 1 tablet by [facility] four times daily as needed for up to 7 days. Ahmeek (Nk) (3 sources) Start: 10-31-2024 Ahmeek (Nk) Active October 31, 2024 12:00am Start: 09-30-2024 Ahmeek (Nk) A ctive September 30, 2024 12:00am phenylephrine hydrochloride 25 mg/ml ophthalmic solution (1 source) alpha-1 Adrenergic Agonist Start: 12-24-2021 End: 12-24-2021 PHENYLephrine 2.5 % 1 Drop (AK-DILATE, RYNE-SYNEPHRINE) pregabalin 75 mg oral capsule (4 sources) Start: 09-17-2022 End: 09-17-2023 take 1 capsule by mouth twice daily pregabalin (LYRICA) 75 mg capsule Indications: Fibromyalgia Take 1 capsule by mouth twice daily. 60 capsule 09/17/2022 09/17/2023 Active Comment on above: Take 1 capsule by [facility] twice daily. proparacaine hydrochloride 5 mg/ml ophthalmic solution (1 source) Local Anesthetic Start: 12-24-2021 End: 12-24-2021 proparacaine 0.5 % 1 Drop (ALCAINE) tropicamide 10 mg/ml ophthalmic solution (1 source) Anticholinergic Start: 12-24-2021 End: 12-24-2021 tropicamide 1 % 1 Drop (MYDRIACYL) Completed/Discontinued Medications Medication Drug Class(es) Dates Sig (Normalized) Sig (Original) acetaminophen 325 mg / HYDROcodone bitartrate 5 mg oral tablet (9 sources) Opioid Agonist Start: 12-03-2021 End: 05-10-2023 [...] 7 days. clindamycin 150 mg oral capsule (13 sources) Lincosamide Antibacterial Start: 4 End: take 450 mg by mouth three times daily Clindamycin Hcl Discontinued 450 MG PO THREE TIMES A DAY May 10, 2023 12:00am May 20, 2023 2:55pm Start: 05-09-2023 End: 05-20-2023 take 3 capsules by mouth three times daily Clindamycin Hcl 150 mg capsule Discontinued 450 mg PO THREE TIMES A DAY 45 5 0 May 10, 2023 12:00am May 20, 2023 2:55pm Comment on above: Take 3 capsules by m out three times a day for 5 days. cyclobenzaprine hydrochloride 5 mg oral tablet (20 sources) Muscle Relaxant Start: 10-01-19 End: 11-01-19 take 1 tablet by mouth three times daily as needed for muscle spasms Cyclobenzaprine 5 mg tablet Discontinued 5 mg PO THREE TIMES A DAY as needed for muscle spasm 60 0 September 30, 2024 12:00am October 31, 2024 10:05pm Start: 04-12-2023 End: 05-20-2023 take 1 tablet by mouth three times daily as needed for muscle spasms Cyclobenzaprine 5 mg tablet Discontinued 5 mg PO THREE TIMES A DAY as needed for muscle spasm 21 0 April 12, 2023 1:00am May 20, 2023 [...] by mouth three times daily as needed. dicyclomine hydrochloride 20 mg oral tablet (4 sources) Anticholinergic Start: 06-17-19 End: 10-01-19 take [...] Comment on above: Take 1 capsule by [facility] three times daily for 30 days. Iud (15 sources) Start: 09-06-19 End: 03-19-19 Iud Discontinued 0 mg VAGINAL DAILY September 06, 2019 12:00am March 19, 2020 5:58pm Start: 09-06-2019 End: 03-19-2020 Iud Discontinued 0 MG VAGINA L DAILY 2019 11:00pm March 19, 2020 4:58pm Start: 09-06-2019 End: 03-19-2020 Iud Discontinued 0 MG VAGINA L DAILY September 06, 2019 12:00am March 19, 2020 5:58pm methylPREDNISolone 4 mg oral tablet (9 sources) Corticosteroid Start: 12-03-2021 End: 05-10-2023 take 1 tablet by mouth once daily Methylprednisolone (Medrol (Nestor)) 4 mg tablets,dose pack Discontinued 4 mg PO DAILY December 03, 2021 12:00am May 10, 2023 9:46am naproxen 500 mg oral tablet (20 sources) Nonsteroidal Anti-inflammatory Drug Start: 05-10-2023 End: [...] 2019 1:00am March 19, 2020 5:58pm nystatin 780521 unt/ml oral suspension (11 sources) Polyene Antifungal Start: 03-12-2020 End: 03-19-2020 take 341671 [IU] by mouth once daily Nystatin Discontinued 722790 UNIT PO 4 TIMES DAILY 03 01March 12, 2020 1:00am March 19, 2020 1:03am Swish for several minutes and swallow Nystatin 100,000 UNIT/ML Oral.Susp (4 sources) Start: 03-12-2020 End: 03-19-2020 take 603239 [IU] by mouth once daily Nystatin 100,000 UNIT/ML Oral.Susp Discontinued 200952 U PO 4 TIMES DAILY 1 7 0 March 12, 2020 1:00am March 18, 2020 [...] Comment on above: Take 1 capsule by [facility] once daily. ondansetron 4 mg disintegrating oral tablet (16 sources) Serotonin-3 Receptor Antagonist Start: 06-17-19 End: 10-01-19 take 1 tablet by mouth every six hours as needed for nausea and vomiting Ondansetron 4 mg tablet,disintegratin g Discontinued 4 mg PO EVERY 6 HOURS as needed for nausea and vomiting 30 0 June 16, 2024 12:00am September 30, 2024 2:47pm Start: 05-10-2023 End: 05-20-2023 take 1 tablet by mouth every six hours as needed for nausea Ondansetron 4 mg tablet,disintegrating Discontinued 4 mg PO EVERY 6 HOURS NEEDED as needed for Nausea 15 0 May 10, 2023 10:14am May 20, 2023 2:56pm Start: 02-22-2021 take 4 mg by mouth e very eight hours as needed Ondansetron Active 4 MG PO EVERY 8 HOURS NEEDED February 22, 2021 1:00am pantoprazole 40 mg delayed release oral tablet (4 sources) Proton Pump Inhibitor Start: 06-16-2024 End: 09-30-2024 take 1 tablet by mouth once daily Pantoprazole 40 mg tablet,delayed release (DR/EC) Discontinued 40 mg PO DAILY 30 30 0 June 16, 2024 12:00am September 30, 2024 2:47pm polyethylene glycol 3350 569800 mg / potassium chloride 2970 mg / sodium bicarbonate 6740 mg / sodium chloride 5860 mg / sodium sulfate 44784 mg powder for oral solution (14 sources) Osmotic Laxative Start: 04-10-2021 End: 06-02-2022 peg 3350-Electrolytes (GOLYTELY) 236-22.74-6.74 -5.86 gram suspension Refer to printed prep instructions from your provider. 4000 mL 0 04/10/2021 06/02/2022 Discontinued Comment on above: Refer to printed pre p instructions from your provider. potassium chloride 20 meq powder for oral solution (4 sources) Start: 06-16-2024 End: 09-30-2024 take 20 mEq by mouth twice daily Potassium Chloride 20 mEq packet Discontinued 20 meq PO TWICE A DAY 30 5 0 June 16, 2024 12:00am September 30, 2024 2:47pm predniSONE 20 mg oral tablet (15 sources) Start: 03-28-2024 End: 06-16-2024 take 3 tablets by mouth once daily Prednisone 20 mg tablet Discontinued 60 mg PO DAILY 21 March 28, 2024 1:00am June 16, 2024 6:27am Start: 04-12-2023 End: 05-10-2023 take 1 tablet by mouth once daily Prednisone 50 mg tablet Discontinued 50 mg PO DAILY 5 April 12, 2023 1:00am May 10, 2023 9:47am Start: 05-21-2021 End: 05-30-2021 predniSONE (DELTASONE) 10 mg tablet Take 4 [...] food. traMADol hydrochloride 50 mg oral tablet (15 sources) Opioid Agonist Start: End: take 1 tablet by mouth every eight hours as needed for pain Tramadol 50 mg tablet Discontinued 50 mg PO Q8H as needed for pain 30 0 September 27, 2019 12:00am March 19, 2020 5:59pm stop all other narcotics Problems Active Problems Problem Classification Problem Date Documented Da te Episodic/Chronic Abdominal pain (20 sources) Epigastric pain; Translations: [Epigastric pain] Episodic Anxiety disorders (20 sources) Anxiety attack ; Translations: [Panic disorder [episodic paroxysmal anxiety]] Onset: 2 12-24-2021 Chronic Cardiac dysrhythmias (20 sources) Atrial paroxysmal tachycardia; Translations: [Supraventricular tachycardia] Onset: 2 12-24-2021 Chronic Disorders of teeth and jaw (13 sources) Toothache; Translations: [Other specified disorders of teeth and supporting structures] 05-09-2023 Episodic E Codes: Fall (7 sources) Fall; Translations: [Unspecified fall, initial encounter] 07-20-2022 Episodic E Codes: Natural/environment (8 sources) Repetitive motion disorder; Translations: [Overexertion from repetitive movements, initial encounter] 03-12-2022 Episodic Esophageal disorders (19 sources) Gastroesophageal reflux disease; Translations: [Gastro-esophageal reflux disease without esophagitis] Onset: Chronic Headache; including migraine (10 sources) Acute pain in face; Translations: [Acute facial pain] 05-10-2023 Episodic Headache; including migraine (1 source) Headache; including migraine; Translations: [Headache, unspecified] Onset: Immunizations and screening for infectious disease (16 sources) Contact with and (suspected) exposure to other viral communicable diseases; Translations: [Contact with or suspected exposure to other viral communicable disease] Episodic Intestinal infection (1 source) Infection caused by Helicobacter pylori; Translations: [Other specified bacterial intestinal infections] Episodic Mycoses (15 sources) Candidiasis of mouth; Translations: [Candidal stomatitis] 03-13-2020 Episodic Noninfectious gastroenteritis (20 sources) Gastroenteritis; Translations: [Noninfective gastroenteritis and colitis, unspecified] 05-04-2019 Episodic Nonspecific chest pain (15 sources) Chest pain; Translations: [Chest pain, unspecified] 08-13-2020 Episodic Open wounds of extremities (15 sources) Laceration of forearm; Translations: [Laceration without foreign body of unspecified forearm, initial encounter] 06-28-2020 Episodic Other bone disease and musculoskeletal deformities (15 sources) Costal chondritis; Translations: [Chondrocostal junction syndrome [...] [Fibromyalgia] 09-17-2022 Episodic Other connective tissue disease (4 sources) Pain in left arm; Translations: [Pain [...] other infectious and parasitic diseases] Episodic Other injuries and conditions due to external causes (1 source) Unspecified injury of left shoulder and upper arm, initial encounter; Translations: [Unspecified injury of left shoulder and upper arm, initial encounter] Onset: 5 Episodic Other nervous system disorders (20 sources) [...] and mobility] Episodic Other non-traumatic joint disorders (7 sources) Foot joint pain; Translations: [Pain in left ankle and joints of left foot] 03-12-2022 Episodic Other non-traumatic joint disorders (2 sources) Multiple joint pain; Translations: [Pain in unspecified joint] Episodic Other non-traumatic joint disorders (1 source) Pain of joint of left foot; Translations: [Pain in left ankle and joints of left foot] 03-12-2022 Episodic Other nutritional; endocrine; and metabolic disorders [...] side] Onset: 3 Episodic Sprains and strains (20 sources) Injury of thigh; Translations: [Strain of muscle, fascia and tendon of the posterior muscle group at thigh level, right thigh, initial encounter] 07-20-2022 Episodic Substance-related disorders (19 sources) Smoker; Translations: [Nicotine dependence, unspecified, uncomplicated] Onset: 3 Chronic Syncope (15 sources) Syncope; Translations: [Syncope and collapse] 09-11-2020 Episodic Unclassified (8 sources) M54.16 - Radiculopathy, lumbar region Unclassified (2 sources) 2-3 weeks if not improving Viral infection (19 sources) Viral disease; Translations: [Viral infection, unspecified] 05-04-2019 Episodic Past or Other Problems Problem Classification Problem Date Documented Date Episodic/Chronic Nausea and vomiting (20 sources) Nausea; Translations: [Nausea] Onset: 06-21-2024 Episodic [...] Test Name Value Interpretation Reference Range Facility Magnetic resonance imaging r eportOrdered By: Gilberto Hauser on 11-01-2024 Study report [facility] Imaging Services [address] [place] [address] [id number] Spine Lumbar (Routine) MR#: [id number] Acct: [id number] Name: TAMMY ANNA Rep #: [id number] : 1985 F 39 From: Carlyle Hauser MD PCP: Care Physician,No Primary Status: REG CLI Study:Spine Lumbar (Routine) Date of Exam: 11/01/24 Exam# [id number] Ordering Dr: Jonathon Damico PA PROCEDURE: SPINE LUMBAR (ROUTINE) 11/01/2024 REASON FOR EXAM: PAIN, LEFT RADICULOPATHY WORSENING X6M TECHNIQUE: Procedure Code: MRISPL Modality: MR Procedure: SPINE LUMBAR (ROUTINE) COMPARISON: Lumbar spine series of 09/30/2024. FINDINGS: Vertebrae: Numerous chronic appearing Schmorl's nodes are seen. No acute osseous changes are seen. On sagittal imaging, disc narrowing is again seen of the L4-L5 and L5-S1 levels. Alignment: No significant subluxation is seen. Conus Medullaris: Unremarkable appearance, terminating at the L1-L2 level. L1-2: Unremarkable L2-3: Unremarkable L3-4: Mild posterior facet and ligamentum flavum hypertrophy is seen. No significant spinal canal stenosis or neural foraminal narrowing is seen. L4-5: Superimposed upon a mild diffuse disc bulge is seen a moderate-sized left disc protrusion. This results in moderate left neural foraminal narrowing. No significant spinal canal stenosis is seen. L5-S1: Mild vertebral body osteophytosis is seen. Mild posterior facet and ligamentum flavum hypertrophy is seen. A mild diffuse disc bulge is noted. This results in moderate right neural foraminal narrowing. No definite left neural foraminal narrowing is seen. No significant spinal canal stenosis is noted. Sacrum: Unremarkable, in visualized areas. MRI/Spine Lumbar (Routine) IMPRESSION: Lower lumbar degenerative disc disease, as described. Reading Location: [place] [address] CC: SEBASTIAN Luis; No Primary Care Physician ~ Molding Machine Tender: Signed [facility] Spine Lumbar (Routine)on Spine Lumbar (Routine) [facility] Imaging Services [address] [place] [id number] Spine Lumbar (Routine) MR#: [id number] Acct: [id number] Name: TAMMY ANNA Rep #: [id number] : 1985 F 39 From: Gilberto Hawthorne PCP: Care Physician,No Primary Status: REG CLI Study: Spine Lumbar (Routine) Date of Exam: 11/01/24 Exam# [id number] Ordering Dr: Jessica Damico PROCEDURE: SPINE LUMBAR (ROUTINE) 11/01/2024 REASON FOR EXAM: PAIN, LEFT RADICULOPATHY WORSENING X6M TECHNIQUE: Procedure Code: MRISPL Modality: MR Procedure: SPINE LUMBAR (ROUTINE) COMPARISON: Lumbar spine series of 09/30/2024. FINDINGS: Vertebrae: Numerous chronic appearing Schmorl's nodes are seen. No acute osseous changes are seen. On sagittal imaging, disc narrowing is again seen of the L4-L5 and L5-S1 levels. Alignment: No significant subluxation is seen. Conus Medullaris: Unremarkable appearance, terminating at the L1-L2 level. L1-2: Unremarkable L2-3: Unremarkable L3-4: Mild posterior facet and ligamentum flavum hypertrophy is seen. No significant spinal canal stenosis or neural foraminal narrowing is seen. L4-5: Superimposed upon a mild diffuse disc bulge is seen a moderate-sized left disc protrusion. This results in moderate left neural foraminal narrowing. No significant spinal canal stenosis is seen. L5-S1: Mild vertebral body osteophytosis is seen. Mild posterior facet and ligamentum flavum hypertrophy is seen. A mild diffuse disc bulge is noted. This results in moderate right neural foraminal narrowing. No definite left neural foraminal narrowing is seen. No significant spinal canal stenosis is noted. Sacrum: Unremarkable, in visualized areas. MRI/Spine Lumbar (Routine) IMPRESSION: Lower lumbar degenerative disc disease, as described. Reading Location: [place] [address] CC: SEBASTIAN Luis; No Primary Care Physician Molding Machine Tender: Signed Normal [facility] Emergency Department Summary on 10-31-2024 Emergency Department Summary [facility] Medical Records Department [address] [place] [address] Emergency Department Summary 10/31/24 MR#: [id number] Acct: [id number] Name: TAMMY ANNA Rep #: [id number] : 1985 39 From: Kamari Diaz MD PCP: Care Physician,No Primary Status:REG ER Location: ED HPI History of Present Illness Chief Complaint: Upper Extremity Injury Informant: patient Narrative Narrative: 39-year-old lyrs-gdxp-cxtoipiy female states she injured her left shoulder today lifting a heavy box. She states she started to lift it and felt a sudden twinge she has been having pain ever since. She states she has been having some pain off and on her left shoulder for the last couple months due to a different injury where she fell on some steps and somehow caught herself with her left arm but she does not remember the details of the injury, whether she fell on the outstretched hand or against her shoulder, etc. She states she did not have it evaluated prior to today because it was not bothering her that much. PFSH PFS Medical History Costochondritis, acute GERD (gastroesophageal reflux disease) Chronic neck and back pain Shoulder pain Home Medications ???Medication ???Instructions ???Recorded ???Last Taken ???Type NK 10/31/24 Unknown History meloxicam 15 mg tablet 15 mg PO DAILY PRN pain #14 tabs 0 10/31/24 Unknown Rx Allergy/AdvReac Type Severity Reaction Status Date / Time Penicillins Allergy Anaphylaxis Verified 10/31/24 20:09 Family History Other Hypertension Surgical History S/P spinal surgery Hx of section Social History (Updated 09/30/24 @ 14:48 by Itzel Welch) Smoking Status: Current every day smoker tobacco type: cigarettes ROS ROS ED Constitutional Constitutional ED: Denies chills or fever(s) Musculoskeletal Musculoskeletal: Reports extremity pain; Denies neck pain Integumentary Denies Abrasions, rash or wounds Neurologic Neurologic: Denies paresthesias or weakness EXAM Physical Exam Const Vital Signs: 10/31/24 20:08 Temperature 98.6 F Temperature Source Oral Pulse Rate 76 Respiratory Rate 18 Blood Pressure 160/88 H Blood Pressure Mean 112 Pulse Ox 98 Oxygen Delivery Method Room Air Positive well nourished and well developed General Appearance ED: well developed and NAD Neck full ROM and supple Back/Spine normal ROM and normal to inspection Extremity Extremity Narrative: Left shoulder: Positive speed test. Positive Yergason. Negative drop test. Neurovascular intact distally. Full range of motion but limited in extremes due to pain especially with internal rotation and forward flexion. There is mild acromioclavicular joint tenderness but no other areas of bony tenderness. She has no deformity. She can abduct fully without limited range. There is no overlying excessive warmth or swelling of the left shoulder. No significant subacromial tenderness. 2+ left radial pulse. Neuro oriented x3, no focal motor deficits and no sensory deficits noted Sensorium / Orientation: alert Psych mental status grossly normal and thought process normal Skin no wounds Rashes: no rashes MDM MDM MDM Narrative Medical decision making narrative: Patient is examining like an acute bicep strain. She does not have a bulge or asymmetry in the upper arm to suggest a rupture. Given her prior pain and injury, I think reasonable to obtain x- rays to evaluate for bony abnormality. Will 4 views of my interpretation including axillary view are all unremarkable. I do not see any Hill-Sachs lesion or [place]art on the glenoid. No dislocation. She is amenable to an injection of Toradol, prescribe nurse meloxicam and orthopedic follow-up if she still having major issues after a couple weeks Discharge Plan Triage Chief Complaint: Upper Extremity Injury ED Provider: Kamari Diaz Dx/Rx/DC Orders Clinical Impression: Strain of left biceps tendon Instructions: Biceps Tendonitis Proximal Prescriptions: New meloxicam 15 mg tablet 15 mg PO DAILY PRN (Reason: pain) Qty: 14 0RF No Action NK Primary Care Provider: Care Physician,No Primary Referrals: Jonas Pena MD [Med Staff - Active Staff] - (2-3 weeks if not improving) Print Language: Beninese Disposition Disposition: Home, Self Care What to do if you have Problems For any increased pain, shortness of breath, bleeding, nausea or vomiting, chest pain, or any unexpected problems, contact your Primary Care Provider. Call [facility] ([phone]) or report to the closest Emergency Room. Call 911 if necessary. 10/31/24 2241 (more content not included)... Normal [facility] Shoulder min 2 Viewson 10-31 Shoulder min 2 Views [facility] [facility] [address] [place] [address] Shoulder min 2 Views MR#: [id number] Acct: [id number] Name: TAMMY ANNA Rep #: [id number] : 1985 F 39 From: Sarmad Dowd MD PCP: Care Physician,No Primary Status: REG ER Study: Shoulder min 2 Views Date of Exam: 10/31/24 Exam# [id number] Ordering Dr: Kamari Diaz MD PROCEDURE: SHOULDER MIN 2 VIEWS 10/31/2024 REASON FOR EXAM: PAIN/INJURY TECHNIQUE: Procedure Code: RADSH Modality: DX Procedure: SHOULDER MIN 2 VIEWS Laterality: COMPARISON: 03/28/2024. FINDINGS: Borderline widening of the left AC joint is unchanged from the previous study and could potentially represent a chronic injury to the left AC ligament. Please correlate clinically. Otherwise no significant bone or joint abnormality is identified. No acute fracture or dislocation. No focal soft tissue swelling. Reading Location: [facility] CC: Dr. Kamari Diaz MD; No Primary Care Physician Molding Machine Tender: Signed Normal [facility] L/S Spine Min 4 Viewson L/S Spine Min 4 Views [facility] Services [address] [place] [address] L/S Spine Min 4 Views MR#: [id number] Acct: [id number] Name: TAMMY ANNA Rep #: [id number] : 1985 F 39 From: Jose C Ventura MD PCP: [place] Status: DEP AMB Study: L/S Spine Min 4 Views Date of Exam: 09/30/24 Exam# [id number] Ordering Dr: Jessica Damico EXAM: XR Lumbosacral [...] IMPRESSION: Degenerative changes as above. Reading Location: [id number] CC: SEBASTIAN Luis; [place] Molding Machine Tender: Signed Normal [facility] Orthopedic Visit Reporton Orthopedic Visit Report [facility] [place] [address] OFFICE VISIT Date of Service: 09/30/24 MR#: [id number] Acct: [id number] Name: TAMMY ANNA Rep #: [id number] : 1985 Provider: SEBASTIAN Luis Age/Sex: 39/F Location: [facility] [place].JAMES Status: Signed Intake Vital Signs 06/16/24 06:26 [...] decisions made by me, SEBASTIAN Luis 09/30/24 7333. Part of today???s visit was documented by [...] in [address] Roy with the [facility]. She denies physical therapy or injections. She did have an MRI of her lower back at [facility] that was done around the time she [...] multilevel dis (more content not included)... Normal [facility] Abdomen/Pelvis W IV Cont ONL Yon 06-16-2024 Abdomen/Pelvis W IV Cont ONLY [facility] Services [address] [place] [address] Abdomen/Pelvis W IV Cont ONLY MR#: [id number] Acct: [id number] Name: TAMMY ANNA Rep #: [id number] : 1985 F 38 From: Yo jarquin MD PCP: [place] Status: REG ER Study: Abdomen/Pelvis W IV Cont ONLY Date of Exam: Exam# [id number] Ordering Dr: Yung Wright DO ADDENDUM by Dr. Yo Zuniga MD on 06/16/24 at 1025 This is an addendum report. The gallbladder is visualized and is unremarkable. Reading Location: [facility] 06/16/24 1026 Date cc: Dr. Yung Wright DO; [place] * Signed PROCEDURE: ABDOMEN/PELVIS W IV CONT [...] No other abnormality is seen. Reading Location: [facility] CC: Dr. Yung Wright, DO; [place] Molding Machine Tender: Signed Normal [facility] Absolute lymphocyte countOrd ered By: Yung Wright on 06-16-2024 Lymphocytes Auto (Unsp spec) [#/Vol] 2.25 10*3/uL 0.83-4.51 [facility] Absolute neutrophil countOrd ered By: Yung Wright on 06-16-2024 Neutrophils (Bld) [#/Vol] 7.8 10*3/uL High 2.0-7.7 [facility] Amorphous sediment detection in urine sediment by light microscopyOrdered By: Yung Wright on 06-16-2024 Amorphous sediment LM Ql (Urine sed) 1+ [facility] Anion gap in Serum or Plasma Ordered By: Yung Wright on 06-16-2024 Anion gap [Moles/Vol] 16 mmol/L High 5-15 [facility] Automated lymphocyte count a s percentage of total leukocytesOrdered By: Yung Wright on 06-16-2024 Lymphocytes/100 WBC Auto (Unsp spec) 20.5 % 19-41 [facility] BUN/creatinine ratioOrdered By: Yung Wright on 06-16-2024 Urea nitrogen/Creatinine [Mass ratio] 34.9 mg/mg High 10-20 [facility] Basophil percentageOrdered B y: Yung Wright on 06-16-2024 Basophils/100 WBC (Bld) 0.3 % 0-1 [facility] Bilirubin Test strip Ql (U)O rdered By: Yung Wright on 06-16-2024 Bilirubin Ql (U) Negative Negative [facility] Bilirubin, totalOrdered By: Yung Wright on 06-16-2024 Bilirubin [Mass/Vol] 0.74 mg/dL 0.00-1.30 [facility] CBC W/Diff, Automatedon 05-25 Absolute Lymph 2.25 X10 3/uL Normal 0.83-4.51 [facility] Comment on above: Performed By: #### L 501.2450, L500.4050, L100.0100, L700.6800 #### [facility] [address] [place], [address] Absolute Neut 7.8 X10 3/uL High 2.0-7.7 [facility] Comment on above: Performed By: #### L 501.2450, L500.4050, L100.0100, L700.6800 #### [facility] [address] [place], [address] Basophils/100 WBC (Bld) 0.3 % Normal 0-1 [facility] Comment on above: Performed By: #### L 501.2450, L500.4050, L100.0100, L700.6800 #### [facility] [address] [place], [address] Eosinophils/100 WBC (Bld) 0.7 % Normal 0-5 [facility] Comment on above: Performed By: #### L 501.2450, L500.4050, L100.0100, L700.6800 #### [facility] [address] [place], [address] Erythrocyte distribution width (RBC) [Ratio] 12.5 % Normal 11.6-14.6 [facility] Comment on above: Performed By: #### L 501.2450, L500.4050, L100.0100, L700.6800 #### [facility] [address] [place], [address] Hematocrit (Bld) [Volume fraction] 47.8 % High 37-47 [facility] Comment on above: Performed By: #### L 501.2450, L500.4050, L100.0100, L700.6800 #### [facility] [address] [place], [address] Hemoglobin (Bld) [Mass/Vol] 17.3 g/dL High 12.0-15.0 [facility] Comment on above: Performed By: #### L 501.2450, L500.4050, L100.0100, L700.6800 #### [facility] [address] [place], [address] IG% 0.500 Normal 0.0-0.9 [facility] Comment on above: Result Comment: IG% - Immature Granulocytes (promyelocytes, myelocytes and metamyelocytes) > 1% indicates that a LEFT SHIFT is Present. Performed By: #### L 501.2450, L500.4050, L100.0100, L700.6800 #### [facility] [address] [place], [address] Lymphocytes/100 WBC (Bld) 20.5 % Normal 19-41 [facility] Comment on above: Performed By: #### L 501.2450, L500.4050, L100.0100, L700.6800 #### [facility] [address] [place], [address] MCH (RBC) [Entitic mass] 31.9 pg Normal 27.0-32.0 [facility] Comment on above: Performed By: #### L 501.2450, L500.4050, L100.0100, L700.6800 #### [facility] [address] [place], [address] MCHC (RBC) [Mass/Vol] 36.2 g/dL High 32-36 [facility] Comment on above: Performed By: #### L 501.2450, L500.4050, L100.0100, L700.6800 #### [facility] [address] [place], [address] MCV (RBC) [Entitic vol] 88.2 fL Normal 81-99 [facility] Comment on above: Performed By: #### L 501.2450, L500.4050, L100.0100, L700.6800 #### [facility] [address] [place], [address] Monocytes/100 WBC (Bld) 7.1 % Normal 0-10 [facility] Comment on above: Performed By: #### L 501.2450, L500.4050, L100.0100, L700.6800 #### [facility] [address] [place], [address] Neutrophils/100 WBC (Bld) 70.9 % High 47-70 [facility] Comment on above: Performed By: #### L 501.2450, L500.4050, L100.0100, L700.6800 #### [facility] [address] [place], [address] Nucleated RBC (Bld) [#/Vol] 0 10*3/uL Normal 0-5 [facility] Comment on above: Performed By: #### L 501.2450, L500.4050, L100.0100, L700.6800 #### [facility] [address] [place], [address] Platelet mean volume (Bld) [Entitic vol] 10.2 fL Normal 6.2-12.0 [facility] Comment on above: Performed By: #### L 501.2450, L500.4050, L100.0100, L700.6800 #### [facility] [address] [place], [address] Platelets (Bld) [#/Vol] 147 10*3/uL Low 150-450 [facility] Comment on above: Performed By: #### L 501.2450, L500.4050, L100.0100, L700.6800 #### [facility] [address] [place], [address] RBC (Bld) [#/Vol] 5.42 10*6/uL High 4.2-5.[address] [facility] Comment on above: Performed By: #### L 501.2450, L500.4050, L100.0100, L700.6800 #### [facility] [address] [place], [address] RDW SD 40.3 fl Normal 35.1-43.9 [facility] Comment on above: Performed By: #### L 501.2450, L500.4050, L100.0100, L700.6800 #### [facility] [address] [place], [address] WBC (Bld) [#/Vol] 11.0 10*3/uL Normal 4.4-11.[address] [facility] Comment on above: Performed By: #### L 501.2450, L500.4050, L100.0100, L700.6800 #### [facility] [address] [place], [address] Carbon dioxide, total [Moles /volume] in Central venous bloodOrdered By: Yung Wright on 06-16-2024 CO2 [Moles/Vol] 23.4 mmol/L 21.0-32.0 [facility] Chloride assayOrdered By: Jeremias Wright on 06-16-2024 Chloride [Moles/Vol] 99 mmol/L 98-108 [facility] Comprehensive Metabolic Prof ilon 06-16-2024 Albumin [Mass/Vol] 4.5 g/dL Normal 3.5-5.0 [facility] Comment on above: Performed By: #### L 501.2450, L500.4050, L100.0100, L700.6800 #### [facility] [address] [place], [address] Albumin/Globulin [Mass ratio] 1.5 {ratio} Normal 0.9-2.4 [facility] Comment on above: Performed By: #### L 501.2450, L500.4050, L100.0100, L700.6800 #### [facility] [address] [place], [address] ALK PHOS 68 U/L Normal 35-104 [facility] Comment on above: Performed By: #### L 501.2450, L500.4050, L100.0100, L700.6800 #### [facility] [address] [place], [address] ALT [Catalytic activity/Vol] 26 U/L Normal <=34 [facility] Comment on above: Performed By: #### L 501.2450, L500.4050, L100.0100, L700.6800 #### [facility] [address] [place], [address] AST [Catalytic activity/Vol] 26 U/L Normal <=31 [facility] Comment on above: Performed By: #### L 501.2450, L500.4050, L100.0100, L700.6800 #### [facility] [address] [place], [address] Bilirubin [Mass/Vol] 0.74 mg/dL Normal 0.00-1.30 [facility] Comment on above: Performed By: #### L 501.2450, L500.4050, L100.0100, L700.6800 #### [facility] [address] [place], [address] BUN/CRE 34.9 RATIO High 10-20 [facility] Comment on above: Performed By: #### L 501.2450, L500.4050, L100.0100, L700.6800 #### [facility] [address] [place], [address] Calcium [Mass/Vol] 9.6 mg/dL Normal 7.6-11.0 [facility] Comment on above: Performed By: #### L 501.2450, L500.4050, L100.0100, L700.6800 #### [facility] [address] [place], [address] Chloride [Moles/Vol] 99 mmol/L Normal 98-108 [facility] Comment on above: Performed By: #### L 501.2450, L500.4050, L100.0100, L700.6800 #### [facility] [address] [place], [address] CO2 [Moles/Vol] 23.4 mmol/L Normal 21.0-32.0 [facility] Comment on above: Performed By: #### L 501.2450, L500.4050, L100.0100, L700.6800 #### [facility] [address] [place], [address] Creatinine [Mass/Vol] 0.78 mg/dL Normal 0.70-1.20 [facility] Comment on above: Performed By: #### L 501.2450, L500.4050, L100.0100, L700.6800 #### [facility] [address] [place], [address] ECRCL 113.45 ml/min Normal 50-250 [facility] Comment on above: Performed By: #### L 501.2450, L500.4050, L100.0100, L700.6800 #### [facility] [address] [place], [address] GAP 16 High 5-15 [facility] Comment on above: Performed By: #### L 501.2450, L500.4050, L100.0100, L700.6800 #### [facility] [address] [place], [address] GFR/1.73 sq M.predicted among non-blacks MDRD (S/P/Bld) [Vol rate/Area] 98 mL/min/{1.73_m2} Normal >60 [facility] Comment on above: Result Comment: mL/m in/1.73m2 CKD-EPI Creatinine Equation (2020) Performed By: #### L 501.2450, L500.4050, L100.0100, L700.6800 #### [facility] [address] [place], [address] Globulin (S) [Mass/Vol] 3.1 g/dL Normal 2.2-4.2 [facility] Comment on above: Performed By: #### L 501.2450, L500.4050, L100.0100, L700.6800 #### [facility] [address] [place], [address] Glucose [Mass/Vol] 125 mg/dL High 70-99 [facility] Comment on above: Performed By: #### L 501.2450, L500.4050, L100.0100, L700.6800 #### [facility] [address] [place], [address] Potassium [Moles/Vol] 2.9 mmol/L Low 3.3-5.1 [facility] Comment on above: Performed By: #### L 501.2450, L500.4050, L100.0100, L700.6800 #### [facility] [address] [place], [address] Sodium [Moles/Vol] 138 mmol/L Normal 133-145 [facility] Comment on above: Performed By: #### L 501.2450, L500.4050, L100.0100, L700.6800 #### [facility] [address] [place], [address] T PROT 7.5 g/dL Normal 5.9-8.4 [facility] Comment on above: Performed By: #### L 501.2450, L500.4050, L100.0100, L700.6800 #### [facility] [address] [place], [address] Urea nitrogen [Mass/Vol] 27 mg/dL High 4-19 [facility] Comment on above: Performed By: #### L 501.2450, L500.4050, L100.0100, L700.6800 #### [facility] [address] [place], [address] Emergency Department Summary on 06-16-2024 Emergency Department Summary [facility] Medical Records Department [address] [place] [address] Emergency Department Summary 06/16/24 MR#: [id number] Acct: [id number] Name: TAMMY ANNA Rep #: [id number] : 1985 38 From: Yung Wright DO PCP: [place] Status:REG ER Location: ED ADDENDUM by Dr. Yung Wright DO on 06/16/24 at 1114 Patient's EKG reviewed and showed sinus rhythm with a rate of 62 bpm. 06/16/24 1114 Cosigner Signature (if applicable): cc: [place] * Signed HPI History of Present Illness [...] her stomach but everywhere in her abdomen. PFSH PFS Medical History Costochondritis, acute GERD (gastroesophageal reflux [...] follow commands and that she was at [facility] years 2024 Skin: Warm, dry, intact [...] 0.74. Corinna (more content not included)... Normal [facility] Eosinophil percentageOrdered By: Yung Wright on 06-16-2024 Eosinophils/100 WBC (Bld) 0.7 % 0-5 [facility] Erythrocyte distribution wid th ratioOrdered By: Yung Wright on 06-16-2024 Erythrocyte distribution width (RBC) [Ratio] 12.5 % 11.6-14.6 [facility] Erythrocyte distribution wid th standard deviationOrdered By: Yung Wright on 06-16-2024 Erythrocyte distribution width (RBC) [Ratio] 40.3 fl 35.1-43.9 [facility] Glomerular filtration rate ( GFR) estimation/1.73 sq m using serum, plasma, or whole bOrdered By: uYng Wright on 06-16-2024 GFR/1.73 sq M.predicted among non-blacks MDRD (S/P/Bld) [Vol rate/Area] 98 mL/min/{1.73_m2} >60 [facility] Comment on above: mL/min/1.73m2 CKD-EP I Creatinine Equation (2020) Hematocrit Auto (Bld) [Volum e fraction]Ordered By: Yung Wright on 06-16-2024 Hematocrit (Bld) [Volume fraction] 47.8 % High 37-47 [facility] Hemoglobin measurementOrdere d By: Yung Wright on 06-16-2024 Hemoglobin (Bld) [Mass/Vol] 17.3 g/dL High 12.0-15.0 [facility] Immature granulocytes/100 WB C Auto (Bld)Ordered By: Yung Wright on 06-16-2024 Immature granulocytes/100 WBC (Bld) 0.500 % 0.0-0.9 [facility] Comment on above: IG% - Immature Granu locytes (promyelocytes, myelocytes and metamyelocytes) > 1% indicates that a LEFT SHIFT is Present. Ketones Test strip Ql (U)Ord ered By: Yung Wright on 06-16-2024 Ketones Ql (U) 15 mg/dl High Negative [facility] Laboratory - Chemistry and C hemistry - challengeOrdered By: Yung Wright on 06-16-2024 AST [Catalytic activity/Vol] 26 U/L <32 [facility] Lipaseon 06-16-2024 Lipase [Catalytic activity/Vol] 35 U/L Normal 13-75 [facility] Comment on above: Result Comment: Plea se note: LIPASE revised reference range effective 22. New Lipase methodology. Expected to produce lower values than the previous assay method. NEW Reference Range: 13 - 75 U/L Performed By: #### L 501.2450, L500.4050, L100.0100, L700.6800 ####[facility] [address] [place], [address] Lipase measurementOrdered By : Yung Wright on 06-16-2024 Lipase [Catalytic activity/Vol] 35 U/L 13-75 [facility] Comment on above: Please note:LIPASE r evised reference range effective 22. New Lipase methodology. Expected to produce lower values than the previous assay method. NEW Reference Range: 13 - 75 U/L MCV (mean corpuscular volume ) determinationOrdered By: Yung Wright on 06-16-2024 MCV (RBC) [Entitic vol] 88.2 fL 81-99 [facility] Mean corpuscular hemoglobin (MCH) determinationOrdered By: Yung Wright on 06-16-2024 MCH (RBC) [Entitic mass] 31.9 pg 27.0-32.0 [facility] Mean corpuscular hemoglobin concentration (MCHC) determinationOrdered By: Yung Wright on 06-16-2024 MCHC (RBC) [Mass/Vol] 36.2 g/dL High 32-36 [facility] Mean platelet volume determi nationOrdered By: Yung Wright on 06-16-2024 Platelet mean volume (Bld) [Entitic vol] 10.2 fL 6.2-12.0 [facility] Microscopic analysis of urin e for red blood cells (RBC)Ordered By: Yung Wright on 06-16-2024 Microscopic analysis of urine for red blood cells (RBC) 0 SEEN /hpf 0-5 [facility] Monocyte percentageOrdered B y: Yung Wright on 06-16-2024 Monocytes/100 WBC (Bld) 7.1 % 0-10 [facility] Mucus LM Ql (Urine sed)Order ed By: Yung Wright on 06-16-2024 Mucus Ql (Urine sed) 0 SEEN /hpf [facility] Neutrophil percentageOrdered By: Yung Wright on 06-16-2024 Neutrophils/100 WBC (Bld) 70.9 % High 47-70 [facility] Nitrite Test strip Ql (U)Ord ered By: Yung Wright on 06-16-2024 Nitrite Ql (U) Negative Negative [facility] Nucleated red blood cell per centageOrdered By: Yung Wright on 06-16-2024 Nucleated RBC/100 WBC (Bld) [Ratio] 0 % 0-5 [facility] Platelet countOrdered By: Jeremias Wright on 06-16-2024 Platelets (Bld) [#/Vol] 147 10*3/uL Low 150-450 [facility] Potassium measurement (mass/ volume)Ordered By: Yung Wright on 06-16-2024 Potassium (Unsp spec) [Mass/Vol] 2.9 mmol/L Low 3.3-5.1 [facility] ,Serum,hCG Quali.on 06-16-2024 HCG, SERUM QUAL Negative Normal [facility] Comment on above: Performed By: #### L 501.2450, L500.4050, L100.0100, L700.6800 ####[facility] [address] [place], [address] Protein Test strip Ql (U)Ord ered By: Yung Wright on 06-16-2024 Protein Ql (U) 100 mg/dl High Negative [facility] RBC Auto (Bld) [#/Vol]Ordere d By: Yung Wright on 06-16-2024 RBC (Bld) [#/Vol] 5.42 10*6/uL High 4.2-5.[address] [facility] Serum beta-hCG test, qualita tiveOrdered By: Yung Wright on 06-16-2024 Beta HCG ( test) Ql Negative [facility] Serum creatinine measurement (mass/volume)Ordered By: Yung Wright on 06-16-2024 Creatinine [Mass/Vol] 0.78 mg/dL 0.70-1.20 [facility] Serum globulin measurementOr dered By: Yung Wright on 06-16-2024 Globulin (S) [Mass/Vol] 3.1 g/dL 2.2-4.2 [facility] Serum glucose measurement (m ass/volume)Ordered By: Yung Wright on 06-16-2024 Glucose [Mass/Vol] 125 mg/dL High 70-99 [facility] Serum or plasma alanine tello otransferase (ALT) measurementOrdered By: Yung Wright on 06-16-2024 ALT [Catalytic activity/Vol] 26 U/L <35 [facility] Serum or plasma albumin jennifer urement (mass/volume)Ordered By: Yugn Wright on 06-16-2024 Albumin [Mass/Vol] 4.5 g/dL 3.5-5.0 [facility] Serum or plasma albumin/glob ulin mass ratioOrdered By: Yung Wright on 06-16-2024 Albumin/Globulin [Mass ratio] 1.5 {ratio} 0.9-2.4 [facility] Serum or plasma alkaline heriberto sphatase measurementOrdered By: Yung Wright on 06-16-2024 ALP [Catalytic activity/Vol] 68 U/L 35-104 [facility] Serum or plasma calcium jennifer urement (mass/volume)Ordered By: Yung Wright on 06-16-2024 Calcium [Mass/Vol] 9.6 mg/dL 7.6-11.0 [facility] Serum or plasma urea nitroge n measurement (mass/volume)Ordered By: Yung Wright on 06-16-2024 Urea nitrogen [Mass/Vol] 27 mg/dL High 4-19 [facility] Sodium levelOrdered By: Lorrie Wright on 06-16-2024 Sodium [Moles/Vol] 138 mmol/L 133-145 [facility] Squamous epithelial cells de tection in urine sediment by light microscopyOrdered By: Yung Wright on 06-16-2024 Epithelial cells.squamous LM Ql (Urine sed) 0-5 SEEN /hpf 5-10 [facility] Total proteinOrdered By: Nba Wright on 06-16-2024 Protein [Mass/Vol] 7.5 g/dL 5.9-8.4 [facility] Urinalysis, Completeon 06-16 CAST,FINE GRAN 0-5 SEEN Normal 0-5 [facility] Comment on above: Order Comment: CLEAN CATCH Performed By: #### L 400.0001 ####[facility] [address] [place], [address] AMORPHOUS 1+ Normal [facility] Comment on above: Order Comment: CLEAN CATCH Performed By: #### L 400.0001 ####[facility] [address] [place], [address] EPI,SQUAMOUS 0-5 SEEN Normal 5-10 [facility] Comment on above: Order Comment: CLEAN CATCH Performed By: #### L 400.0001 ####[facility] [address] [place], [address] BACTERIA 0 SEEN Normal None Seen [facility] Comment on above: Order Comment: CLEAN CATCH Performed By: #### L 400.0001 ####[facility] [address] [place], [address] Mucus Ql (Urine sed) 0 SEEN Normal [facility] Comment on above: Order Comment: CLEAN CATCH Performed By: #### L 400.0001 ####[facility] [address] [place], [address] RBC 0 SEEN Normal 0-5 [facility] Comment on above: Order Comment: CLEAN CATCH Performed By: #### L 400.0001 ####[facility] [address] [place], [address] WBC 0 SEEN Normal 0-5 [facility] Comment on above: Order Comment: CLEAN CATCH Performed By: #### L 400.0001 ####[facility] [address] [place], [address] Urine clarityOrdered By: Nba Wright on 06-16-2024 Clarity (U) Clear Clear [facility] Urine color determinationOrd ered By: Yung Wright on 06-16-2024 Color (U) Yellow Yellow [facility] Urine glucose detectionOrder ed By: Yung Wright on 06-16-2024 Glucose Ql (U) Normal mg/dl Normal [facility] Urine leukocyte esterase det ection by dipstickOrdered By: Yung Wright on 06-16-2024 Leukocyte esterase Test strip Ql (U) 25 /ul High Negative [facility] Urine pHOrdered By: Yung raya on 06-16-2024 pH (U) 6.5 [pH] 5.0 - 8.0 [facility] Urine sediment bacteria coun t by microscopy (number/high power field)Ordered By: Yung Wright on 06-16-2024 Bacteria LM.HPF (Urine sed) [#/Area] 0 /[HPF] None Seen [facility] Urine sediment fine granular cast count by microscopy (number/low power field)Ordered By: Yung Wright on 06-16-2024 Fine Granular Casts LM.LPF (Urine sed) [#/Area] 0-5 SEEN /lpf 0-5 [facility] Urine specific gravity measu rementOrdered By: Yung Wright on 06-16-2024 Specific gravity (U) [Rel density] 1.020 1.002-1.030 [facility] Urine urobilinogen measureme ntOrdered By: Yung Wright on 06-16-2024 Urobilinogen Ql (U) Normal mg/dl Normal [facility] White blood cell (WBC) count Ordered By: Yung Wright on 06-16-2024 WBC (Bld) [#/Vol] 11.0 10*3/uL 4.4-11.[address] [facility] White blood cell countOrdere d By: Yung Wright on 06-16-2024 White blood cell count 0 SEEN /hpf 0-5 W [facility] Cerv Spine 2 or 3 Viewson Cerv Spine 2 or 3 Views [facility] Imaging Services [address] [place] [address] Cerv Spine 2 or 3 Views MR#: [id number] Acct: [id number] Name: TAMMY ANNA Rep #: [id number] : 1985 F 38 From: Markos Chapman MD PCP: [place] Status: PRE ER Study: Cerv Spine 2 or 3 Views Date of Exam: 03/28/24 Exam# [id number] Ordering Dr: Henry Ventura DO PROCEDURE: CERV [...] acute osseous abnormalities. C5-6 ACDF. Reading Location: [facility] CC: Dr. Henry Ventura DO; [place] Molding Machine Tender: Signed Normal [facility] Emergency Department Summary on 03-28-2024 Emergency Department Summary [facility] Medical Records Department [address] [place] [address] Emergency Department Summary 03/28/24 MR#: [id number] Acct: [id number] Name: TAMMY ANNA Rep #: [id number] : 1985 38 From: Henry Pimentel PCP: [place] Status:[facility] ER Location: ED HPI History of Present [...] have a PCP. Prior similar symptoms: No [facility] Medical History Costochondritis, acute GERD (gastroesophageal [...] present Extremity normal to inspection Extremity Narrative: Router Machine Operator strength equal and symmetric. Pulses are intact [...] spinal surgeon (more content not included)... Normal [facility] Shoulder min 2 Viewson 03-28 Shoulder min 2 Views [facility] Imaging Services [address] [place] [address] Shoulder min 2 Views MR#: [id number] Acct: [id number] Name: TAMMY ANNA Rep #: [id number] : 1985 F 38 From: Markos Chapman MD PCP: [place] Status: PRE ER Study: Shoulder min 2 Views Date of Exam: 03/28/24 Exam# [id number] Ordering Dr: Henry Ventura DO PROCEDURE: SHOULDER MIN 2 VIEWS REASON FOR EXAM: Arm numbness. TECHNIQUE: Four views of the left shoulder. COMPARISON: None. FINDINGS: LEFT SHOULDER: No fracture. No suspicious bone lesion. Normal alignment of the acromioclavicular and glenohumeral joints. Soft tissues are unremarkable. RAD/Shoulder min 2 Views IMPRESSION: No acute osseous abnormalities. Reading Location: [facility] CC: Dr. Henry Ventura DO; [place] Molding Machine Tender: Signed Normal [facility] Basic Metabolic Profile (BMP )on 03-06-2024 BUN/CRE 13.8 RATIO Normal 10-20 [facility] Comment on above: Performed By: #### L 100.0100, L500.2500 #### [facility] Laboratory [address] [place], [address] CA,Total 8.6 mg/dL Normal 8.5-10.1 [facility] Comment on above: Performed By: #### L 100.0100, L500.2500 #### [facility] [address] [place], [address] Chloride [Moles/Vol] 110 mmol/L High 98-107 [facility] Comment on above: Performed By: #### L 100.0100, L500.2500 #### [facility] [address] [place], [address] CO2 [Moles/Vol] 25.0 mmol/L Normal 21.0-32.0 [facility] Comment on above: Performed By: #### L 100.0100, L500.2500 #### [facility] [address] [place], [address] Creatinine [Mass/Vol] 0.65 mg/dL Normal 0.55-1.02 [facility] Comment on above: Result Comment: The validity of the calculated GFR GFRAA in patients over 70 years has not been determined. Clinical correlation is essential. Performed By: #### L 100.0100, L500.2500 #### [facility] [address] [place], [address] ECRCL 137.12 ml/min Normal [facility] Comment on above: Performed By: #### L 100.0100, L500.2500 #### [facility] [address] [place], [address] EST GFR - AA 129 mL/min Normal >60 [facility] Comment on above: Result Comment: Afri can Malian GFR Calc Performed By: #### L 100.0100, L500.2500 #### [facility] [address] [place], [address] GAP 5 Normal 5-15 [facility] Comment on above: Performed By: #### L 100.0100, L500.2500 #### [facility] [address] [place], [address] GFR/1.73 sq M.predicted among non-blacks MDRD (S/P/Bld) [Vol rate/Area] 106 mL/min/{1.73_m2} Normal >60 [facility] Comment on above: Result Comment: Non- GFR Calc Performed By: #### L 100.0100, L500.2500 #### [facility] [address] [place], [address] Glucose [Mass/Vol] 97 mg/dL Normal 74-106 [facility] Comment on above: Performed By: #### L 100.0100, L500.2500 #### [facility] [address] [place], [address] Potassium [Moles/Vol] 3.6 mmol/L Normal 3.5-5.1 [facility] Comment on above: Performed By: #### L 100.0100, L500.2500 #### [facility] [address] [place], [address] Sodium [Moles/Vol] 140 mmol/L Normal 136-145 [facility] Comment on above: Performed By: #### L 100.0100, L500.2500 #### [facility] [address] [place], [address] Urea nitrogen [Mass/Vol] 9 mg/dL Normal 7-18 [facility] Comment on above: Performed By: #### L 100.0100, L500.2500 #### [facility] [address] [place], [address] CBC W/Diff, Automatedon 02-23 Absolute Lymph 3.50 X10 3/uL Normal 0.83-4.51 [facility] Comment on above: Performed By: #### L 100.0100, L500.2500 #### [facility] [address] [place], [address] Absolute Neut 3.8 X10 3/uL Normal 2.0-7.7 [facility] Comment on above: Performed By: #### L 100.0100, L500.2500 #### [facility] [address] [place], [address] Basophils/100 WBC (Bld) 0.4 % Normal 0-1 [facility] Comment on above: Performed By: #### L 100.0100, L500.2500 #### [facility] [address] [place], [address] Eosinophils/100 WBC (Bld) 3.5 % Normal 0-5 [facility] Comment on above: Performed By: #### L 100.0100, L500.2500 #### [facility] [address] [place], [address] Erythrocyte distribution width (RBC) [Ratio] 12.5 % Normal 11.6-14.6 [facility] Comment on above: Performed By: #### L 100.0100, L500.2500 #### [facility] [address] [place], [address] Hematocrit (Bld) [Volume fraction] 39.9 % Normal 37-47 [facility] Comment on above: Performed By: #### L 100.0100, L500.2500 #### [facility] [address] [place], [address] Hemoglobin (Bld) [Mass/Vol] 14.1 g/dL Normal 12.0-15.0 [facility] Comment on above: Performed By: #### L 100.0100, L500.2500 #### [facility] [address] [place], [address] IG% 0.400 Normal 0.0-0.9 [facility] Comment on above: Result Comment: IG% - Immature Granulocytes (promyelocytes, myelocytes and metamyelocytes) > 1% indicates that a LEFT SHIFT is Present. Performed By: #### L 100.0100, L500.2500 #### [facility] [address] [place], [address] Lymphocytes/100 WBC (Bld) 43.3 % High 19-41 [facility] Comment on above: Performed By: #### L 100.0100, L500.2500 #### [facility] [address] [place], [address] MCH (RBC) [Entitic mass] 31.6 pg Normal 27.0-32.0 [facility] Comment on above: Performed By: #### L 100.0100, L500.2500 #### [facility] [address] [place], [address] MCHC (RBC) [Mass/Vol] 35.3 g/dL Normal 32-36 [facility] Comment on above: Performed By: #### L 100.0100, L500.2500 #### [facility] [address] [place], [address] MCV (RBC) [Entitic vol] 89.5 fL Normal 81-99 [facility] Comment on above: Performed By: #### L 100.0100, L500.2500 #### [facility] [address] [place], [address] Monocytes/100 WBC (Bld) 6.1 % Normal 0-10 [facility] Comment on above: Performed By: #### L 100.0100, L500.2500 #### [facility] [address] [place], [address] Neutrophils/100 WBC (Bld) 46.3 % Low 47-70 [facility] Comment on above: Performed By: #### L 100.0100, L500.2500 #### [facility] [address] [place], [address] Nucleated RBC (Bld) [#/Vol] 0 10*3/uL Normal 0-5 [facility] Comment on above: Performed By: #### L 100.0100, L500.2500 #### [facility] [address] [place], [address] Platelet mean volume (Bld) [Entitic vol] 10.2 fL Normal 6.2-12.0 [facility] Comment on above: Performed By: #### L 100.0100, L500.2500 #### [facility] [address] [place], [address] Platelets (Bld) [#/Vol] 161 10*3/uL Normal 150-450 [facility] Comment on above: Performed By: #### L 100.0100, L500.2500 #### [facility] [address] [place], [address] RBC (Bld) [#/Vol] 4.46 10*6/uL Normal 4.2-5.[address] [facility] Comment on above: Performed By: #### L 100.0100, L500.2500 #### [facility] [address] [place], [address] RDW SD 41.0 fl Normal 35.1-43.9 [facility] Comment on above: Performed By: #### L 100.0100, L500.2500 #### [facility] [address] [place], [address] WBC (Bld) [#/Vol] 8.1 10*3/uL Normal 4.4-11.0 [facility] Comment on above: Performed By: #### L 100.0100, L500.2500 #### [facility] [address] [place], [address] Emergency Department Summary on 03-06-2024 Emergency Department Summary [facility] Medical Records Department [address] [place] [address] Emergency Department Summary 03/06/24 MR#: [id number] Acct: [id number] Name: TAMMY ANNA Rep #: [id number] : 1985 38 From: Damari Beyer DO PCP: [facility] Status:DEP ER Location: ED HPI History of [...] currently. No concern for carbon oxide poisoning. [facility] Medical History Chronic neck and back [...] Romberg, negative (more content not included)... Normal [facility] CNOVon 05-09-2023 CNOV Office Visit (UCWSTR ) -------- TAMMY ANNA ([id number]) 1985 F Date Time Provider Department 05/09/23 2:45 PM RENATO MONTANO [facility] During your visit today, we recorded the [...] penicillin. Encouraged appropriate amounts of as needed [id number] analgesia. Schedule follow-up with dentist. Renato Montano [...] Status:Closed by RENATO MONTANO on 05/09/[address] [facility] XR CERV GENERAL 2V AP/LATon 11-25-2022 [facility] XR CERVICAL 2V AP/LATon XR CERVICAL 2V AP/LAT * * *Final [...] IMPRESSION: Status post C5-C6 anterior spinal fusion. Molding Machine Tender: MAGGY Transcribe Date/Time: Nov 25 2022 3:00P Dictated by : STACY KIRAN MD This examination was interpreted and the report reviewed and electronically signed by: STACY KIRAN MD on Nov 25 2022 3:02PM EST [id number] Normal [facility] TAMMY ANNA ([id number]) 1985 F Date Time Provider Department 11/20/22 REYES ROY [facility] During your visit today, we recorded the [...] down her spine to her left leg. Sammy did now agree with her. OTC not helping. Please call to help her. Number to return call [phone] Okay to leave a message ? Yes Last office visit 08/21/2022 with Manuela Next office visit 11/27/2022 with Manuela Thank you calling [facility] [place]. You will receive a return call within 48 hours ( or 2 business days if close to the weekend). If you feel that this is an urgent issue and needs immediate attention, it is recommended that you contact your primary care provider office or proceed to your nearest Urgent Care Center of Emergency Room ED for evaluation/treatment. Carolina Hendricks, RN 11/20/2022 11:24 AM Signed NEUROSURGERY CARE COORDINATION [facility] QUICK NOTE ? Spoke to Tammy patient (s/p C5/6 ACDF on 07/04/22) ? [...] Fully Assessed Reason for Visit: Patient Question [1136] Prescriptions as of 11/24/2022 - pregabalin (LYRICA) [...] Encounter Status:Closed by CAROLINA SOLIZ on 11/20/22 [facility] CNOVon 09-17-2022 CNOV Office Visit (RHEUM[facility] ) -------- TAMMY ANNA ([id number]) 1985 F Date Time Provider Department 09/17/22 2:00 PM DIVINA KEY [facility] During your visit today, we recorded the [...] and inflammatory markers are negative except for PARALEGAL SUPERVISOR of 1.1. XR shows DJD and scoliosis. [...] 07/04/2022. 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 She [...] Tra (more content not included)... Normal [facility] XR CERV GENERAL 2V AP/LATon 09-17-2022 [facility] XR CERVICAL 2V AP/LATon 08-24 XR CERVICAL [...] OF ANTERIOR FUSION C5-6 WITH INTACT HARDWARE Molding Machine Tender: MAGGY Transcribe Date/Time: Sep 17 2022 3:47P Dictated by : YODIT LYN MD This examination was interpreted and the report reviewed and electronically signed by: YODIT LYN MD on Sep 17 2022 3:48PM EST [id number] Normal [facility] CNCOon 08-22-2022 CNCO Letter Text Normal [facility] CNPNon 08-22-2022 [facility] TAMMY ANNA ([id number]) 1985 F Date Time Provider Department 08/22/22 REYES ROY [facility] During your visit today, we recorded the [...] patient's request. Alpa Casas Coord Cris Mcdonnell [facility] 08/22/2022 2:06 PM Signed Letter sent through [facility] Alpa Casas Coord 08/22/2022 2:27 PM Signed [...] no limit if tolerating well. Alpa Saldana Allergies As of Date: 08/22/2022 Noted Allergy Reaction PENICILLINS 10/05/2018 10 - Anaphylaxis Date Reviewed: 08/21/2022 Reviewed by: John Stevenson - Fully Assessed Reason for Visit: Patient Question [9747] Prescriptions as of 08/22/2022 - loratadine (CLARITIN) [...] Encounter Status:Closed by CRIS WILDE on 08/22/22 [facility] CNOVon 08-21-2022 [facility]OV [facility] -------- TAMMY ANNA ([id number]) 1985 F Date Time Provider Department 08/21/22 11:40 AM REYES ROY [facility] During your visit today, we recorded the [...] Preop, had arm pain, right thumb cramping, 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 Arm pain resolved Cramping thumb resolved Router Machine Operator improving Dexterity improving Not dropping things as [...] which included preparing to see the patient, [id number] patient care, completing clinical documentation, obtaining and/or [...] (HCC) [G95.9] Order(s):XR CERV GENERAL 2V AP/LAT [[id number]] Order #: [id number] FUTURE Prescriptions as of 08/21/2022 - loratadine [...] Encounter Status:Closed by REYES ROY on 08/21/[address] [facility] CNNURSEon 07-22-2022 CNNURSE Nurse Visit ([facility]) -------- TAMMY ANNA ([id number]) 1985 F Date Time Provider Department 07/22/22 [...] preop pain is resolving/resolved. BUE symptoms resolving. 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 Pt not requiring any pain [...] RUBENS Briceno, RN Referring Provider: REYES ROY [[id number]] Allergies As of Date: 07/22/2022 Noted Allergy [...] state [Z98.890] 07/04/2022 Encounter Status:Closed by CAROLINA SOILZ on 07/22/22 [facility] 07-05-2022 [facility] HNO ID: [id number] Author: RT Selena(R) Service: Radiology Author Type: [...] PERIPHERAL IV DATA: Not applicable SIGNED BY: Caroline Webber RT(R) July 05, 2022 9:49 AM Normal [facility] CBC W Auto Differential pane l (Bld)on 07-05-2022 Basophils (Bld) [#/Vol] 10*3/uL Normal <0.11 [facility] Comment on above: Order Comment: Speci men Type: BLOOD SPECIMENOrdering Facility: [facility] Address: [address] [place] [address] Performed By: #### 5 7021-8 ####[facility] [id number] [place] [address] [place] Basophils/100 WBC (Bld) 0.1 % Normal [facility] Comment on above: Order Comment: Speci men Type: BLOOD SPECIMENOrdering Facility: [facility] Address: [address] [place] [address] Performed By: #### 5 7021-8 ####[facility]ORY[facility] [id number] [place] [address] [place] Differential cell count method Nom (Bld) Auto Normal [facility] Comment on above: Order Comment: Speci men Type: BLOOD SPECIMENOrdering Facility: [facility] Address: [address] [place] [address] Performed By: #### 5 7021-8 ####[facility] [id number] [place] [address] [place] Eosinophils (Bld) [#/Vol] 10*3/uL Normal <0.46 [facility] Comment on above: Order Comment: Speci men Type: BLOOD SPECIMENOrdering Facility: [facility] Address: [address] [address] Performed By: #### 5 7021-8 ####[facility]ORY[facility] [id number] [place] [address] [place] Eosinophils/100 WBC (Bld) 0.1 % Normal [facility] Comment on above: Order Comment: Speci men Type: BLOOD SPECIMENOrdering Facility: [facility] Address: [address] [address] Performed By: #### 5 7021-8 ####[facility]ORY[facility] [id number] [address] [place] Erythrocyte distribution width (RBC) [Ratio] 13.3 % Normal 11.5-15.0 [facility] Comment on above: Order Comment: Speci men Type: BLOOD SPECIMENOrdering Facility: [facility] Address: [address] [place] [address] Performed By: #### 5 7021-8 ####[facility]ORY[facility] [id number] [address] [place] Hematocrit (Bld) [Volume fraction] 39.7 % Normal 36.0-46.0 [facility] Comment on above: Order Comment: Speci men Type: BLOOD SPECIMENOrdering Facility: [facility] Address: [address] [place] [address] Performed By: #### 5 7021-8 ####[facility]ORY[facility] [id number] [place] [address] [place] Hemoglobin (Bld) [Mass/Vol] 13.8 g/dL Normal 11.5-15.5 [facility] Comment on above: Order Comment: Speci men Type: BLOOD SPECIMENOrdering Facility: [facility] Address: [address] [place] [address] Performed By: #### 5 7021-8 ####[facility]ORYCL[facility] [id number] [place] [address] [place] Immature granulocytes (Bld) [#/Vol] 0.08 10*3/uL Normal <0.10 [facility] Comment on above: Order Comment: Speci men Type: BLOOD SPECIMENOrdering Facility: [facility] Address: [address] [place] [address] Performed By: #### 5 7021-8 ####[facility]ORY[facility] [id number] [place] [address] [place] Immature granulocytes/100 WBC (Bld) 0.6 % Normal [facility] Comment on above: Order Comment: Speci men Type: BLOOD SPECIMENOrdering Facility: [facility] Address: [address] [place] [address] Performed By: #### 5 7021-8 ####[facility]ORYCLIA [id number] [place] [address] [place] Lymphocytes (Bld) [#/Vol] 2.24 10*3/uL Normal 1.00-4.00 [facility] Comment on above: Order Comment: Speci men Type: BLOOD SPECIMENOrdering Facility: [facility] Address: [address] [place] [address] Performed By: #### 5 7021-8 ####[facility]ORYCLIA [id number] [address] [place] Lymphocytes/100 WBC (Bld) 16.8 % Normal [facility] Comment on above: Order Comment: Speci men Type: BLOOD SPECIMENOrdering Facility: [facility] Address: [address] [address] Performed By: #### 5 7021-8 ####[facility]ATORYCLIA [id number] [place] [address] [place] MCH (RBC) [Entitic mass] 31.7 pg Normal 26.0-34.0 [facility] Comment on above: Order Comment: Speci men Type: BLOOD SPECIMENOrdering Facility: [facility] Address: [address] [place] [address] Performed By: #### 5 7021-8 ####[facility]ORYCLIA [id number] [place] [address] [place] MCHC (RBC) [Mass/Vol] 34.8 g/dL Normal 30.5-36.0 [facility] Comment on above: Order Comment: Speci men Type: BLOOD SPECIMENOrdering Facility: [facility] Address: [address] [place] [address] Performed By: #### 5 7021-8 ####[facility]ORYCLIA [id number] [place] [address] [place] MCV (RBC) [Entitic vol] 91.1 fL Normal 80.0-100.0 [facility] Comment on above: Order Comment: Speci men Type: BLOOD SPECIMENOrdering Facility: [facility] Address: [address] [place] [address] Performed By: #### 5 7021-8 ####[facility]ORYCLIA [id number] [place] [address] [place] Monocytes (Bld) [#/Vol] 1.06 10*3/uL High <0.87 [facility] Comment on above: Order Comment: Speci men Type: BLOOD SPECIMENOrdering Facility: [facility] Address: [address] [place] [address] Performed By: #### 5 7021-8 ####[facility]ORYCLIA [id number] [place] [address] [place] Monocytes/100 WBC (Bld) 8.0 % Normal [facility] Comment on above: Order Comment: Speci men Type: BLOOD SPECIMENOrdering Facility: [facility] Address: [address] [place] [address] Performed By: #### 5 7021-8 ####[facility]ORYCLIA [id number] [place] [address] [place] Neutrophils (Bld) [#/Vol] 9.92 10*3/uL High 1.45-7.50 [facility] Comment on above: Order Comment: Speci men Type: BLOOD SPECIMENOrdering Facility: [facility] Address: [address] [address] Performed By: #### 5 7021-8 ####[facility]ORYCLIA [id number] [place] [address] [place] Neutrophils/100 WBC (Bld) 74.4 % Normal [facility] Comment on above: Order Comment: Speci men Type: BLOOD SPECIMENOrdering Facility: [facility] Address: [address] [address] Performed By: #### 5 7021-8 ####[facility]ORATORYCLIA [id number] [place] [address] [place] [place] Nucleated RBC (Bld) [#/Vol] 10*3/uL Normal <0.01 [facility] Comment on above: Order Comment: Speci men Type: BLOOD SPECIMENOrdering Facility: [facility] Address: [address] [place] [address] Performed By: #### 5 7021-8 ####[facility]ATORYCLIA [id number] [place] [address] [place] Nucleated RBC/100 WBC (Bld) [Ratio] 0.0 /100 WBC Normal [facility] Comment on above: Order Comment: Speci men Type: BLOOD SPECIMENOrdering Facility: [facility] Address: [address] [place] [address] Performed By: #### 5 7021-8 ####[facility]ORYCLIA [id number] [place] [address] [place] Platelet mean volume (Bld) [Entitic vol] 9.8 fL Normal 9.0-12.7 [facility] Comment on above: Order Comment: Speci men Type: BLOOD SPECIMENOrdering Facility: [facility] Address: [address] [place] [address] Performed By: #### 5 7021-8 ####[facility]ATORYCLIA [id number] [place] [address] [place] Platelets (Bld) [#/Vol] 126 10*3/uL Low 150-400 [facility] Comment on above: Order Comment: Speci men Type: BLOOD SPECIMENOrdering Facility: [facility] Address: [address] [place] [address] Performed By: #### 5 7021-8 ####[facility]ORATORYCLIA [id number] [place] [address] [place] RBC (Bld) [#/Vol] 4.36 10*6/uL Normal 3.90-5.20 [facility] Comment on above: Order Comment: Speci men Type: BLOOD SPECIMENOrdering Facility: [facility] Address: [address] [place] [address] Performed By: #### 5 7021-8 ####[facility]ATORYCLIA [id number] [place] [address] [place] WBC (Bld) [#/Vol] 13.32 10*3/uL High 3.70-11.00 [facility] Comment on above: Order Comment: Speci men Type: BLOOD SPECIMENOrdering Facility: [facility] Address: [address] [place] [address] Performed By: #### 5 7021-8 ####[facility] LABORATORYCLIA [id number] [place] [address] [place] Comprehensive metabolic 2000 panelon 07-05-2022 Albumin [Mass/Vol] 3.7 g/dL Low 3.9-4.9 [facility] Comment on above: Order Comment: Speci men Type: BLOOD SPECIMEN [facility] Address: [address] [place] [address] Performed By: #### 2 4323-8 #### [facility] CLIA [id number] [place] [address] [place] ALP [Catalytic activity/Vol] 68 U/L Normal 34-123 [facility] Comment on above: Order Comment: Speci men Type: BLOOD SPECIMEN [facility] Address: [address] [address] Performed By: #### 2 4323-8 #### [facility] CLIA [id number] [address] [place] [address] [place] ALT [Catalytic activity/Vol] 13 U/L Normal 7-38 [facility] Comment on above: Order Comment: Speci men Type: BLOOD SPECIMEN [facility] Address: [address] [address] Performed By: #### 2 4323-8 #### [facility] CLIA [id number] [address] [place] [address] [place] Anion gap [Moles/Vol] 8 mmol/L Low 9-18 [facility] Comment on above: Order Comment: Speci men Type: BLOOD SPECIMEN [facility] Address: [address] [place] [address] Performed By: #### 2 4323-8 #### [facility] CLIA [id number] [address] [place] [address] [place] AST [Catalytic activity/Vol] 16 U/L Normal 13-35 [facility] Comment on above: Order Comment: Speci men Type: BLOOD SPECIMEN [facility] Address: [address] [address] Performed By: #### 2 4323-8 #### [facility] CLIA [id number] [address] [place] [address] [place] Bilirubin [Mass/Vol] 0.3 mg/dL Normal 0.2-1.3 [facility] Comment on above: Order Comment: Speci men Type: BLOOD SPECIMEN [facility] Address: [address] [address] Performed By: #### 2 4323-8 #### [facility] CLIA [id number] [address] [place] [address] [place] Calcium [Mass/Vol] 8.7 mg/dL Normal 8.5-10.2 [facility] Comment on above: Order Comment: Speci men Type: BLOOD SPECIMEN [facility] Address: [address] [address] Performed By: #### 2 4323-8 #### [facility] CLIA [id number] [address] [place] [address] [place] Chloride [Moles/Vol] 109 mmol/L High 97-105 [facility] Comment on above: Order Comment: Speci men Type: BLOOD SPECIMEN [facility] Address: [address] [address] Performed By: #### 2 4323-8 #### [facility] CLIA [id number] [address] [place] [address] [place] CO2 [Moles/Vol] 22 mmol/L Normal 22-30 [facility] Comment on above: Order Comment: Speci men Type: BLOOD SPECIMEN [facility] Address: [address] [address] Performed By: #### 2 4323-8 #### [facility] CLIA [id number] [address] [place] [address] [place] Creatinine [Mass/Vol] 0.64 mg/dL Normal 0.58-0.96 [facility] Comment on above: Order Comment: Speci men Type: BLOOD SPECIMEN [facility] Address: [address] [place] [address] Performed By: #### 2 4323-8 #### [facility] CLIA [id number] [address] [place] [address] [place] ESTIMATED GLOMERULAR FILTRATION RATE 116 mL/min/1.73m??? Normal >=60 [facility] Comment on above: Order Comment: Speci men Type: BLOOD SPECIMEN [facility] Address: [address] [place] [address] Result Comment: Kathy mated Glomerular Filtration Rate [...] GFR. Performed By: #### 2 4323-8 #### [facility] CLIA [id number] [address] [place] [address] [place] Glucose [Mass/Vol] 114 mg/dL High 74-99 [facility] Comment on above: Order Comment: Patricia rosas Type: BLOOD SPECIMEN [facility] Address: [address] [address] Result Comment: The [place] Diabetes Association (ADA) provides guidance for cutoff [...] Standards of Medical Care in Diabetes 2016, [place] [employer]. Diabetes Care. 2016.39(Suppl 1). Performed By: #### 2 4323-8 #### [facility] CLIA [id number] [address] [place] [address] [place] Potassium [Moles/Vol] 4.2 mmol/L Normal 3.7-5.1 [facility] Comment on above: Order Comment: Patricia rosas Type: BLOOD SPECIMEN [facility] Address: [address] [address] Performed By: #### 2 4323-8 #### [facility] CLIA [id number] [address] [place] [address] [place] Protein [Mass/Vol] 6.0 g/dL Low 6.3-8.0 [facility] Comment on above: Order Comment: Patricia rosas Type: BLOOD SPECIMEN [facility] Address: [address] [place] [address] Performed By: #### 2 4323-8 #### [facility] CLIA [id number] [address] [place] [address] [place] Sodium [Moles/Vol] 139 mmol/L Normal 136-144 [facility] Comment on above: Order Comment: Speci men Type: BLOOD SPECIMEN [facility] Address: [address] [place] [address] Performed By: #### 2 4323-8 #### [facility] CLIA [id number] [address] [place] [address] [place] Urea nitrogen [Mass/Vol] 10 mg/dL Normal 7-21 [facility] Comment on above: Order Comment: Speci men Type: BLOOD SPECIMEN [facility] Address: [address] [place] [address] Performed By: #### 2 4323-8 #### [facility] CLIA [id number] [address] [place] [address] [place] NURSING PROGon 07-05-2022 NURSING PROG HNO ID: [id number] Author: Riddhi Siu RN Service: ? Author Type: Registered Nurse Type: Nursing Progress Note Filed: 07/05/2022 4:14 PM Note Text: Other: Daily Note 0730: Nurse to nurse handoff received 0900: Patient assessment completed 1200: Patient assessment completed [facility] NURSING PROG HNO ID: [id number] Author: Renato Rubin RN Service: ? Author [...] Bed alarm on, call light in reach. [facility] THERAPY NTon 07-05-2022 THERAPY NT HNO ID: [id number] Author: Farhat Wasserman PT Service: Physical Therapy Author Type: Physical Therapist Type: Therapy (PT/OT/Speech/Resp) Filed: 07/05/2022 12:09 PM Note Text: Physical Therapy Treatment SERVICE DATE: 07/05/2022 SERVICE TIME: 1145 to 1200 ROOM: [facility]-464-2 Recommended Discharge Disposition: Home Recommended Discharge Disposition [...] Patient) TREATMENT INTERVENTIONS: (more content not included)... [facility] THERAPY NT HNO ID: [id number] Author: Farhat Wasserman PT Service: Physical Therapy [...] patient. SERVICE DATE: 07/05/2022 SERVICE TIME: to 0910 ROOM: [place] [address] Recommended Discharge Disposition: Home Recommended Discharge Disposition [...] use of assistive device, and activity tolerance. -HLM: 7: Walk 25 feet or more Learning/Educational Needs: Discharge Plan, Functional Activities/Mobility, Precautions, Safety Goals for Plan of Care: Patient/Caregiver Goals: Go Home [place] (more content not included)... 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 [facility] XR CERVICAL 2V AP/LATon 05 XR CERVICAL 2V AP/LAT * * *Final Report* * * DATE OF EXAM: Jul 05 2022 9:49AM HCX 5308 - XR CERVICAL 2V AP/LAT / PROCEDURE REASON: Spinal fusion, cervical, follow up * * * * Physician Interpretation * * * * RESULT: Accession number: [id number] COMPARISON: INDICATION: Spinal fusion, cervical, follow up [...] on Jul 06 2022 6:04PM EST [id number] [facility] HEALTHon 07-04-2022 ALLIED HEALTH HNO ID: [id number] Author: Chaplain Elidia Service: Spiritual Care Author Type: Marine Extension Agent Type: Allied Health Filed: 07/04/2022 2:04 PM Note Text: SPIRITUAL CARE PROGRESS NOTE SERVICE DATE: 07/04/2022 SERVICE TIME: 1:55 pm Attempted patient visit; patient resting. Will follow up as circumstances allow. To contact the Spiritual Care Department: Please call [phone]. SIGNATURE: Chaplain Elidia PATIENT NAME: Tammy Anna DATE: July 04, 2022 TIME: 2:03 PM PAGER/CONTACT #: [phone] [facility] ANES POSTPROC EVALon 023 ANES POSTPROC EVAL HNO ID: [id number] Author: Espinoza Chacon MD Service: Anesthesiology Author [...] July 04, 2022 TIME: 10:04 AM CSN: [id number] [facility] ANES PRE-OPon 07-04-2022 ANES PRE-OP HNO ID: [id number] Author: Espinoza Chacon MD Service: Anesthesiology Author [...] SPINAL PROCEDURES (Spine Cervical) Location: OR06A / [facility] OR Surgeons: Reyes Roy MD Estimated body [...] and consent discussed: yes. Patient / Responsible Republican agrees to proceed: yes Patient / Surrogate [...] yes Vitals Value Taken Time BP 135/89 07/04/22 0649 Pulse 70 07/04/22 0649 Resp 14 07/04/22 0649 Temp 36.7 ?C (98.1 ?F) 07/04/22 0649 SpO2 96 % 07/04/22 0649 Facility-Administered Medications as of 07/04/2022 Medication Dose Route Frequency - [COMPLETED] acetaminophen 1,000 mg tab(s) (TYLENOL) 1,000 mg ORAL ONCE - [COMPLETED] promethazine 12.5 mg tab(s) (PHENERGAN) 12.5 mg ORAL NOW - NaCl 0.9% iv flush bag 20 mL INTRAVENOUS PRN - vancomycin 1.5 g in NaCl 0.9% 250 mL (VANCOCIN) 1.5 g INTRAVENOUS [employer] to OR Outpatient Medications as of 07/04/2022 [...] July 04, 2022 TIME: 7:21 AM CSN: [id number] [facility] BRIEF OP NOTon 07-04-2022 BRIEF OP NOT HNO ID: [id number] Author: Reyes Roy MD Service: Neurosurgery Author Type: Physician Type: Brief Op Note Filed: 07/04/2022 9:40 AM Note Text: BRIEF OPERATIVE / PROCEDURE NOTE LOG ID: [id number] SURGERY/PROCEDURE DATE: 07/04/2022 INCISION/PROCEDURE START TIME: 8:12 AM INCISION CLOSE/PROCEDURE END TIME: 9:38 AM SURGEON(S)/PROCEDURALIST (S) AND BALANCE STAFF STAKER(S): Surgeon(s) and Role: * Reyes Roy MD [...] DATE: July 04, 2022 TIME: 9:39 AM [facility] CASE MGT INIT ASSESon 2022 CASE MGT INIT ASS HNO ID: [id number] Author: Parisa Wang RN Service: ? Author Type: Registered Nurse Type: Care Mgt Initial Assessment Filed: 07/04/2022 1:30 PM Note Text: CARE MANAGEMENT: ASSESSMENT AND DISCHARGE PLAN SERVICE DATE: July 04, 2022 SERVICE TIME: 1:24 PM PCP: Tonya Arriaga CNP Primary Contact: Extended Emergency Contact Information Primary Emergency Contact: Fabiola Anna Address: [id number] [place] [address] [place] Relation: Spouse Admission Status: Inpatient [facility] Discharge Planning requested by: Attending Provider Potential Transition Plans Home Advance Directives Current Advance Directive: None Centrifugal Operator Attempted to Assist with AD Completion: Yes [...] General wellness, Be able to go home [place] of Choice Explained: Are you interested in bedside delivery of your medications? No Discharge Planning Participant(s): Spouse/significant other Patient/Family Comments: pt's janna Hicks Caregiver Assessment: Caregiver is ready, willing and able to meet the patient's needs as recommended by the inter-professional team: No Caregiver needed Transport at Discharge: Transportation Arrangements: Car Needs Prior to Discharge: Needs Prior to Discharge: OT/PT Evaluation Post-Acute Discharge Plan: S/p spinal surgery today w/ NSGY. PT/OT ordered. DC plan: anticipate home no needs vs [facility]. CM to follow. SIGNATURE: Parisa Wang RN PATIENT NAME: Tammy Anna DATE: July 04, 2022 TIME: 1:23 PM CONTACT #: [phone] [facility] CREATININE [facility] 07-04-2022 Creatinine [Mass/Vol] 0.56 mg/dL Low 0.58-0.96 [facility] Comment on above: Order Comment: Speci men Type: BLOOD SPECIMENOrdering Facility: [facility] Address: [address] [place] [address] Performed By: #### C RET1 ####[facility] LABORATORYCLIA [id number] [place] [address] [place] ESTIMATED GLOMERULAR FILTRATION RATE 120 mL/min/1.73m??? Normal >=60 [facility] Comment on above: Order Comment: Speci men Type: BLOOD SPECIMENOrdering Facility: [facility] Address: [place] [address] Result Comment: Kathy mated Glomerular Filtration Rate [...] actual GFR. Performed By: #### C RET1 ####[facility] LABORATORYCLIA [id number] [place] [id number] [place] HISTORY PHYSICALon HISTORY PHYSICAL HNO ID: [id number] Author: Valdemar Fajardo MD Service: General Internal [...] and tongue ar (more content not included)... [facility] NURSING PROGon 07-04-2022 NURSING PROG HNO ID: [id number] Author: Brooke Astudillo RN Service: ? Author [...] reach, bed alarm on and safety maintained. [facility] NURSING PROG HNO ID: [id number] Author: Nata Roe RN Service: Nursing Author Type: Registered Nurse Type: Nursing Progress Note Filed: 07/04/2022 11:37 AM Note Text: 0952: Pt arrived to PACU with OR team on SFM 8 lpm. VSS. See NPR 1130: Report called to KENDRA Magallanes [facility] OPERATIVE NOon 07-04-2022 OPERATIVE NO HNO ID: [id number] Author: Reyes Roy MD Service: Neurosurgery Author Type: Physician Type: Operative Report Filed: 07/04/2022 9:51 AM Note Text: OPERATIVE/PROCEDURE REPORT NEUROSURGERY LOG ID: [id number] Surgery/Procedure Date: 07/04/2022 Incision/Procedure Start Time: 8:12 AM Incision Close/Procedure End Time: 9:38 AM Surgeon(s)/Proceduralist (s) and Welder Plastic(s): Surgeon(s) and Role: * Reyes Roy MD - Primary * Jairo Sadler MD - Resident - Assisting Interpreter Translator: Yodit Caba RN Interpreter Translator (Relief): Anthonie Marilee, marketing directorFinancial Institution Treasurer: Guerline Malone RT(R) Scrub Person: Issa Mckenzie RN Procedure(s): 1. C5/6 ACDF with plating 2. Use of interbody structural autograft 3. Use of operating microscope for microdisssection Preoperative Diagnosis: cervical myelopathy Postoperative Diagnosis: same Operative Indications: Ms. 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 MRI shows C5/6 disc herniation with [...] placed without difficulty. The annulus was divided. Minerva posts were placed in the vertebral bodies [...] 04, 2022 TIME: 9:42 AM PAGER/CONTACT #: [phone] [facility] XR CERVICAL 2V AP/LATon 06-23 XR CERVICAL [...] on Jul 04 2022 3:00PM EST [id number] [facility] XR VERIFY LEVEL [id number] 07-04-2022 XR VERIFY LEVEL C-SPINE-NB * * [...] on Jul 04 2022 8:35AM EST [id number] [facility] 07-03-2022 [facility] -------- TAMMY ANNA ([id number]) 1985 F Date Time Provider Department 07/03/22 CAROLINA SOLIZ [facility] During your visit today, we recorded the following information about you: Carolina Hendricks RN 07/03/2022 1:40 PM Signed NEUROSURGERY CARE COORDINATION [facility] PRE-OP EDUCATION PHONE CALL ? Spoke with patient Tammy Anna for pre-op education. Reviewed education materials verbally with patient, including pre-operative skin preparation, medications, NPO, DOS expectations, visitor policy, inpatient expectations, wound care, post-operative pain management. ? Provided the following education materials to patient: [facility] Pre-/Post-Op Instruction packet, NPO/Skin Prep Instructions, Advance Directives info, Pain Management After Spine Surgery, Preparing for Post-Acute Care Instructions : Yes. ? Reviewed with patient to report to Pre/Post op services day of surgery: Yes. ? Reviewed with patient [facility] Surgery Pre-Op will call patient after 2 pm the day before to get surgery report time for day of surgery. Provided Pre-Op front end specialist phone number of [phone] for any questions: Yes. ? Patient made [...] Soliz RN July 03, 2022 1:39 PM Allergies As of Date: 07/03/2022 Noted Allergy Reaction PENICILLINS 10/05/2018 10 - Anaphylaxis Date Reviewed: 06/04/2022 Reviewed by: Lianet Mas APRN.ELECTRIC MOTOR AND GENERATOR ASSEMBLER - Fully Assessed Reason for Visit: preop [...] Encounter Status:Closed by CAROLINA SOLIZ on 07/03/22 [facility] HISTORY PHYSICALon HISTORY PHYSICAL HNO ID: [id number] Author: Reyes Roy MD Service: Neurosurgery Author [...] 2022. SIGNATURE: Reyes Roy MD PATIENT NAME: Tammy Anna DATE: July 03, 2022 TIME: 9:32 PM PAGER: [phone] [facility] 06-26-2022 [facility] Telephone ([facility]) -------- SHOSHANATAMMY Iwona ([id number]) 1985 F Date Time Provider Department 06/26/22 REYES ROY [facility] During your visit today, we recorded the following information about you: Cris CADENA 06/26/2022 12:25 PM Signed Type of form: FMLA Form received via email When form is completed, email back to patient's employer Form has been forwarded to Physician Desk: Dr. Manuela Mcdonnell PSS Allergies As of Date: 06/26/2022 Noted Allergy Reaction PENICILLINS 10/05/2018 10 - Anaphylaxis Date Reviewed: 06/04/2022 Reviewed by: Lianet Mas APRN.ELECTRIC MOTOR AND GENERATOR ASSEMBLER - Fully Assessed Reason for Visit: Forms [...] Encounter Status:Closed by CRIS WILDE on 06/26/22 [facility] Yoselin 06-10-2022 YINGN Telephone ([facility]) -------- TAMMY ANNA ([id number]) 1985 F Date Time Provider Department 06/10/22 CAROLINA SOLIZ [facility] During your visit today, we recorded the following information about you: Carolina Hendricks RN 06/10/2022 9:28 AM Signed NEUROSURGERY CARE COORDINATION [facility] QUICK NOTE ? Spoke to patient, Tammy [...] Date Reviewed: 06/04/2022 Reviewed by: Lianet Mas APRN.ELECTRIC MOTOR AND GENERATOR ASSEMBLER - Fully Assessed Reason for Visit: Patient [...] by CAROLINA SOLIZ on 06/10/[address] [facility] CT CERVICAL SPINE WO IVCONon 06-10-2022 CT CERVICAL SPINE WO IVCON * * *Final Report* * * DATE OF EXAM: Jun 10 2022 11:39AM [facility] 0505 - CT CERVICAL SPINE WO IVCON [...] Counting reference: Craniocervical junction. Anatomic Variants: None. Superintendent Track (topogram) images: No significant findings. Alignment: Straightening [...] vertebrae with counting from the craniocervical junction. Molding Machine Tender: PSCB Transcribe Date/Time: Jun 10 2022 11:47A Dictated by : MONICA LONGO MD This examination was interpreted and the report reviewed and electronically signed by: MONICA LONGO MD on Jun 10 2022 11:55AM EST [id number] Normal [facility] Yoselin 06-06-2022 CNPN Telephone ([facility]) -------- TAMMY ANNA ([id number]) 1985 F Date Time Provider Department 06/06/22 YOVANY AHN [facility] During your visit today, we recorded the [...] chest, the spine and into both arms. [place] like an electrical shock. The pain and [...] surgery 07/04. Advised to be seen at [facility] ED for intractable pain, increased weakness/dexterity/gil ce difficulty. Yovany Ahn PA-C Allergies As of Date: 06/06/2022 Noted Allergy Reaction PENICILLINS 10/05/2018 10 - Anaphylaxis Date Reviewed: 06/04/2022 Reviewed by: Lianet Mas APRN.ELECTRIC MOTOR AND GENERATOR ASSEMBLER - Fully Assessed Reason for Visit: Patient [...] by YOVANY AHN on 06/06/[address] [facility] Basic metabolic 2000 panelon 06-04-2022 Anion gap [Moles/Vol] 9 mmol/L Normal 9-18 [facility] Comment on above: Order Comment: Speci men Type: BLOOD SPECIMEN [facility] Address: [address] Performed By: #### 5 7021-8 #### [facility] CLIA [id number] [address] [place] [address] [place] Calcium [Mass/Vol] 9.5 mg/dL Normal 8.5-10.2 [facility] Comment on above: Order Comment: Speci men Type: BLOOD SPECIMEN [facility] Address: [address] Performed By: #### 5 7021-8 #### [facility] CLIA [id number] [address] [place] [address] [place] Chloride [Moles/Vol] 106 mmol/L High 97-105 [facility] Comment on above: Order Comment: Speci men Type: BLOOD SPECIMEN [facility] Address: [address] Performed By: #### 5 7021-8 #### [facility] CLIA [id number] [address] [place] [address] [place] CO2 [Moles/Vol] 23 mmol/L Normal 22-30 [facility] Comment on above: Order Comment: Speci men Type: BLOOD SPECIMEN [facility] Address: [address] Performed By: #### 5 7021-8 #### [facility] CLIA [id number] [address] [place] [address] [place] Creatinine [Mass/Vol] 0.66 mg/dL Normal 0.58-0.96 [facility] Comment on above: Order Comment: Speci men Type: BLOOD SPECIMEN Ordering Facility: [facility] Address: [address] Performed By: #### 5 7021-8 #### [facility] [id number] [address] [place] [address] [place] ESTIMATED GLOMERULAR FILTRATION RATE 115 mL/min/1.73m??? Normal >=60 [facility] Comment on above: Order Comment: Patricia rosas Type: BLOOD SPECIMEN Ordering Facility: [facility] Address: [address] [place] [address] Result Comment: Kathy mated Glomerular Filtration Rate [...] GFR. Performed By: #### 5 7021-8 #### [facility] [id number] [address] [place] [address] [place] Glucose [Mass/Vol] 113 mg/dL High 74-99 [facility] Comment on above: Order Comment: Patricia rosas Type: BLOOD SPECIMEN Ordering Facility: [facility] Address: [address] [place] [address] Result Comment: The [place] Diabetes Association (ADA) provides guidance for cutoff [...] Standards of Medical Care in Diabetes 2016, [place] Diabetes Association. Diabetes Care. 2016.39(Suppl 1). Performed By: #### 5 7021-8 #### [facility] [id number] [address] [place] [address] [place] Potassium [Moles/Vol] 3.9 mmol/L Normal 3.7-5.1 [facility] Comment on above: Order Comment: Speci men Type: BLOOD SPECIMEN Ordering Facility: [facility] Address: [address] [place] [address] Performed By: #### 5 7021-8 #### [facility] CLIA [id number] [address] [place] [address] [place] Sodium [Moles/Vol] 138 mmol/L Normal 136-144 [facility] Comment on above: Order Comment: Speci men Type: BLOOD SPECIMEN Ordering Facility: [facility] Address: [address] [place] [address] Performed By: #### 5 7021-8 #### [facility] CLIA [id number] [address] [place] [address] [place] Urea nitrogen [Mass/Vol] 11 mg/dL Normal 7-21 [facility] Comment on above: Order Comment: Speci men Type: BLOOD SPECIMEN Ordering Facility: [facility] Address: [address] [place] [address] Performed By: #### 5 7021-8 #### [facility] CLIA [id number] [address] [place] [address] [place] CBC W Auto Differential pane l (Bld)on 06-04-2022 Basophils (Bld) [#/Vol] 10*3/uL Normal <0.11 [facility] Comment on above: Order Comment: Speci men Type: BLOOD SPECIMEN Ordering Facility: [facility] Address: [place] [address] Performed By: #### 5 7021-8 #### [facility] CLIA [id number] [address] [place] [address] [place] Basophils/100 WBC (Bld) 0.2 % Normal [facility] Comment on above: Order Comment: Speci men Type: BLOOD SPECIMEN Ordering Facility: [facility] Address: [address] [address] Performed By: #### 5 7021-8 #### [facility] CLIA [id number] [address] [place] [address] [place] Differential cell count method Nom (Bld) Auto Normal [facility] Comment on above: Order Comment: Speci men Type: BLOOD SPECIMEN Ordering Facility: [facility] Address: [address] [address] Performed By: #### 5 7021-8 #### [facility] CLIA [id number] [address] [place] [address] [place] Eosinophils (Bld) [#/Vol] 0.10 10*3/uL Normal <0.46 [facility] Comment on above: Order Comment: Speci men Type: BLOOD SPECIMEN Ordering Facility: [facility] Address: [address] [address] Performed By: #### 5 7021-8 #### [facility] CLIA [id number] [address] [place] [address] [place] Eosinophils/100 WBC (Bld) 1.9 % Normal [facility] Comment on above: Order Comment: Speci men Type: BLOOD SPECIMEN Ordering Facility: [facility] Address: [address] [address] Performed By: #### 5 7021-8 #### [facility] CLIA [id number] [address] [place] [address] [place] Erythrocyte distribution width (RBC) [Ratio] 13.1 % Normal 11.5-15.0 [facility] Comment on above: Order Comment: Speci men Type: BLOOD SPECIMEN Ordering Facility: [facility] Address: [address] [address] Performed By: #### 5 7021-8 #### [facility] CLIA [id number] [address] [place] [address] [place] Hematocrit (Bld) [Volume fraction] 39.8 % Normal 36.0-46.0 [facility] Comment on above: Order Comment: Speci men Type: BLOOD SPECIMEN Ordering Facility: [facility] Address: [address] [place] [address] Performed By: #### 5 7021-8 #### [facility] [id number] [address] [place] [address] [place] Hemoglobin (Bld) [Mass/Vol] 14.0 g/dL Normal 11.5-15.5 [facility] Comment on above: Order Comment: Speci men Type: BLOOD SPECIMEN Ordering Facility: [facility] Address: [address] [place] [address] Performed By: #### 5 7021-8 #### [facility] [id number] [address] [place] [address] [place] Immature granulocytes (Bld) [#/Vol] 10*3/uL Normal <0.10 [facility] Comment on above: Order Comment: Speci men Type: BLOOD SPECIMEN Ordering Facility: [facility] Address: [address] [place] [address] Performed By: #### 5 7021-8 #### [facility] [id number] [address] [place] [address] [place] Immature granulocytes/100 WBC (Bld) 0.2 % Normal [facility] Comment on above: Order Comment: Speci men Type: BLOOD SPECIMEN Ordering Facility: [facility] Address: [address] [place] [address] Performed By: #### 5 7021-8 #### [facility] [id number] [address] [place] [address] [place] Lymphocytes (Bld) [#/Vol] 2.07 10*3/uL Normal 1.00-4.00 [facility] Comment on above: Order Comment: Speci men Type: BLOOD SPECIMEN Ordering Facility: [facility] Address: [address] [address] Performed By: #### 5 7021-8 #### [facility] CLIA [id number] [address] [place] [address] [place] Lymphocytes/100 WBC (Bld) 39.4 % Normal [facility] Comment on above: Order Comment: Speci men Type: BLOOD SPECIMEN Ordering Facility: [facility] Address: [address] [address] Performed By: #### 5 7021-8 #### [facility] CLIA [id number] [address] [place] [address] [place] MCH (RBC) [Entitic mass] 30.6 pg Normal 26.0-34.0 [facility] Comment on above: Order Comment: Speci men Type: BLOOD SPECIMEN Ordering Facility: [facility] Address: [address] [address] Performed By: #### 5 7021-8 #### [facility] CLIA [id number] [address] [place] [address] [place] MCHC (RBC) [Mass/Vol] 35.2 g/dL Normal 30.5-36.0 [facility] Comment on above: Order Comment: Speci men Type: BLOOD SPECIMEN Ordering Facility: [facility] Address: [address] Performed By: #### 5 7021-8 #### [facility] CLIA [id number] [address] [place] [address] [place] MCV (RBC) [Entitic vol] 87.1 fL Normal 80.0-100.0 [facility] Comment on above: Order Comment: Speci men Type: BLOOD SPECIMEN Ordering Facility: [facility] Address: [address] [place], [place] [address] Performed By: #### 5 7021-8 #### [facility] CLIA [id number] [address] [place] [address] [place] Monocytes (Bld) [#/Vol] 0.34 10*3/uL Normal <0.87 [facility] Comment on above: Order Comment: Speci men Type: BLOOD SPECIMEN Ordering Facility: [facility] Address: [address] [place], [place] [address] Performed By: #### 5 7021-8 #### [facility] CLIA [id number] [address] [place] [address] [place] Monocytes/100 WBC (Bld) 6.5 % Normal [facility] Comment on above: Order Comment: Speci men Type: BLOOD SPECIMEN Ordering Facility: [facility] Address: [address] [place] [address] Performed By: #### 5 7021-8 #### [facility] CLIA [id number] [address] [place] [address] [place] Neutrophils (Bld) [#/Vol] 2.72 10*3/uL Normal 1.45-7.50 [facility] Comment on above: Order Comment: Speci men Type: BLOOD SPECIMEN Ordering Facility: [facility] Address: [address] [place], [place] [address] Performed By: #### 5 7021-8 #### [facility] CLIA [id number] [address] [place] [address] [place] Neutrophils/100 WBC (Bld) 51.8 % Normal [facility] Comment on above: Order Comment: Speci men Type: BLOOD SPECIMEN Ordering Facility: [facility] Address: [address] [place], [place] [address] Performed By: #### 5 7021-8 #### [facility] CLIA [id number] [address] [place] [address] [place] Nucleated RBC (Bld) [#/Vol] 10*3/uL Normal <0.01 [facility] Comment on above: Order Comment: Speci men Type: BLOOD SPECIMEN Ordering Facility: [facility] Address: [place] [address] Performed By: #### 5 7021-8 #### [facility] CLIA [id number] [address] [place] [address] [place] Nucleated RBC/100 WBC (Bld) [Ratio] 0.0 /[address] [facility] Comment on above: Order Comment: Speci men Type: BLOOD SPECIMEN Ordering Facility: [facility] Address: [address] [place], [place] [address] Performed By: #### 5 7021-8 #### [facility] CLIA [id number] [address] [place] [address] [place] Platelet mean volume (Bld) [Entitic vol] 9.9 fL Normal 9.0-12.7 [facility] Comment on above: Order Comment: Speci men Type: BLOOD SPECIMEN Ordering Facility: [facility] Address: [address] [place], [place] [address] Performed By: #### 5 7021-8 #### [facility] CLIA [id number] [address] [place] [address] [place] Platelets (Bld) [#/Vol] 151 10*3/uL Normal 150-400 [facility] Comment on above: Order Comment: Speci men Type: BLOOD SPECIMEN Ordering Facility: [facility] Address: [address] [place], [place] [address] Performed By: #### 5 7021-8 #### [facility] CLIA [id number] [address] [place] [address] [place] RBC (Bld) [#/Vol] 4.57 10*6/uL Normal 3.90-5.20 [facility] Comment on above: Order Comment: Speci men Type: BLOOD SPECIMEN Ordering Facility: [facility] Address: [address] [place], [place] [address] Performed By: #### 5 7021-8 #### [facility] CLIA [id number] [address] [place] [address] [place] [facility] [place] WBC (Bld) [#/Vol] 5.25 10*3/uL Normal 3.70-11.00 [facility] Comment on above: Order Comment: Speci men Type: BLOOD SPECIMEN Ordering Facility: [facility] Address: [address] [place], [place] [address] Performed By: #### 5 7021-8 #### [facility] CLIA [id number] [address] [place] [address] [place] ECG COMPLETEon 06-04-2022 ECG COMPLETE Ventricular Rate : 7 5 BPM Atrial Rate : 75 BPM P-R Interval : 134 ms QRS Duration : 82 ms Q-T Interval : 370 ms QTC Calculation(Bazett) : 413 ms Calculated P Noel : 15 degrees Calculated R Noel : 48 degrees Calculated T Noel : 14 degrees NORMAL SINUS RHYTHM NORMAL ECG Confirmed by SAMY SY DO ([id number]) on 06/09/2022 2:57:27 PM NAME : TAMMY ANNA PID : [id number] : 1985 Gender : Female Race : ORD : [id number] Procedure Date : Jun 04 2022 15:36:02 Edit Date : Jun 09 2022 14:57:28 Diagnosis: NORMAL SINUS RHYTHM NORMAL ECG Confirmed by SAMY SY DO ([id number]) on 06/09/2022 2:57:27 PM Test Reason : Location : 636 : [facility] Overread By : SAMY SY DO Edited By : SAMY SY DO Referred By : LIANET MAS Acquired by : Ariana mitchell [facility] HISTORY PHYSICALon HISTORY PHYSICAL HNO ID: [id number] Author: Lianet Mas APRN.ELECTRIC MOTOR AND GENERATOR ASSEMBLER Service: ? Author Type: Nurse Practitioner Type: [...] pain, arm pain, cramping in right thumb, cafeteria table attendant strength weaker. Difficulty with zippers, buttons, small [...] fevers. Neurological: No history of TIA's, stroke, SENIOR LOAN PROCESSOR tumor, impaired sensorium, hemiplegia, paraplegia or quadraplegia. [...] > 1 time per night or hematuria. SNOW FENCE ERECTOR: Negative for abnormal vaginal bleeding, abnormal vaginal [...] Prior to Admission medications as of 06/04/22 4864 Medication Sig Last Dose Taking gabapentin (NEURONTIN) 300 mg capsule Take 1 capsule by mouth three times daily for 30 days. Taking Yes loratadine (CLARITIN) 10 mg tablet Take 10 mg by mouth once daily. Taking Yes omepr (more content not included)... Normal [facility] HbA1c (Bld)on 06-04-2022 Average glucose Estimated from glycated hemoglobin (Bld) [Mass/Vol] 100 mg/dL Normal [facility] Comment on above: Order Comment: Patricia rosas Type: BLOOD SPECIMEN Ordering Facility: [facility] Address: [address] [id number] Result Comment: eAG: (Estimated average glucose) is a calculated value from HgbA1c and is agricultural sales representative of the average blood glucose level in the last 2-3 month period. Performed By: #### 5 7021-8 #### [facility] [id number] [address] [place] [address] [place] HbA1c (Bld) [Mass fraction] 5.1 % Normal 4.3-5.6 [facility] Comment on above: Order Comment: Patricia rosas Type: BLOOD SPECIMEN Ordering Facility: [facility] Address: [address] [place] [address] Result Comment: [place] Diabetes Association guidelines indicate that patients with HgbA1c in the range 5.7-6.4% are at increased risk for development of diabetes, and intervention by lifestyle modification may be beneficial. HgbA1c greater or equal to 6.5% is considered diagnostic of diabetes. Performed By: #### 5 7021-8 #### [facility] [id number] [address] [place] [address] [place] NICOTINE/COTININEon 06-05-19 23 Cotinine [Mass/Vol] 257 ng/mL High <2 [facility] Comment on above: Order Comment: Patricia rosas Type: BLOOD SPECIMEN Ordering Facility: [facility] Address: [address] [place], [place] [address] Result Comment: Acti ve tobacco product user: Nicotine concentration: 30 - 50 ng/mL Cotinine concentration: 200 - 800 ng/mL Passive exposure to tobacco: Nicotine concentration: < 2 ng/mL Cotinine concentration: < 8 ng/mL Unexposed non-tobacco user or abstinent user for > 2 weeks: Nicotine concentration: < 2 ng/mL Cotinine concentration: < 2 ng/mL This test was developed and its performance characteristics determined by [facility] ([facility]). It has not been cleared or approved by the FDA. [facility] is regulated under CLIA as qualified to perform high-complexity testing. This test is used for clinical purposes. It should not be regarded as investigational or for research. Performed By: #### 5 7021-8 #### [facility] CLIA [id number] [address] [place] [address] [place] Nicotine [Mass/Vol] 17 ng/mL High <2 [facility] Comment on above: Order Comment: Patricia rosas Type: BLOOD SPECIMEN Ordering Facility: [facility] Address: [address] [place] [address] Performed By: #### 5 7021-8 #### [facility] CLIA [id number] [address] [place] [address] [place] PT panel Coag (PPP)on 2022 INR Coag (PPP) [Relative time] 1.0 {INR} Normal 0.9-1.3 [facility] Comment on above: Order Comment: Patricia rosas Type: BLOOD SPECIMEN Ordering Facility: [facility] Address: [address] [place] [address] Result Comment: Yen min K Antagonist (VKA) Therapeutic Range: INR 2 to 3 (Target INR of 2.5) Note: For patients treated with VKA drugs, such as warfarin, the [place] [employer] 2012 Guideline recommends [...] to 3.5 (target INR of 3). Elton SUTTON, et al. Chest 2012, 141:7S-47S Lee RA, et al. [facility] 2017, 70: 252-289 Performed By: #### 5 7021-8 #### [facility] CLIA [id number] [address] [place] [address] [place] PT Coag (PPP) [Time] 9.9 s Normal <13.1 [facility] Comment on above: Order Comment: Speci men Type: BLOOD SPECIMEN Ordering Facility: [facility] Address: [address] [address] Performed By: #### 5 7021-8 #### [facility] CLIA [id number] [address] [place] [address] [place] STAPH AUREUS PCRon S. aureus and MRSA panel ASHOK+probe (Nose) Normal Negative [facility] Comment on above: Order Comment: Speci men Type: BLOOD SPECIMEN Ordering Facility: [facility] Address: [address] [address] Result Comment: Nega tive for Staphylococcus aureus by PCR. Negative for MRSA by PCR Performed By: #### 5 7021-8 #### [facility] CLIA [id number] [address] [place] [address] [address] [facility] TYPE AND SCREEN,30 DAYon ABO B Normal [facility] Comment on above: Order Comment: Speci men Type: BLOOD SPECIMEN Ordering Facility: [facility] Address: [address] [address] Performed By: #### 5 7021-8 #### [facility] CLIA [id number] [address] [place] [address] [place] HISTORICAL AB SCR STATUS Negative Normal [facility] Comment on above: Order Comment: Speci men Type: BLOOD SPECIMEN Ordering Facility: [facility] Address: [address] [address] Performed By: #### 5 7021-8 #### [facility] CLIA [id number] [address] [place] [address] [place] Rh Nom (Bld) Positive Normal [facility] Comment on above: Order Comment: Speci men Type: BLOOD SPECIMEN Ordering Facility: [facility] Address: [address] [place] [address] Performed By: #### 5 7021-8 #### [facility] CLIA [id number] [address] [place] [address] [place] aPTT PPPon 06-04-2022 aPTT Coag (PPP) [Time] 23.2 s Normal 23.0-32.4 Cl [facility] Comment on above: Order Comment: Speci men Type: BLOOD SPECIMEN Ordering Facility: [facility] Address: [address] [place] [address] Performed By: #### 5 7021-8 #### [facility] CLIA [id number] [address] [place] [address] [place] [facility] -------- TAMMY ANNA ([id number]) 1985 F Date Time Provider Department 06/03/22 REYES ROY [facility] During your visit today, we recorded the following information about you: Ashley Maykel 06/03/2022 12:36 PM Signed NI PHONE Name [...] was already scheduled. Number to return call [phone] Okay to leave a message ? Yes Thank you calling [facility]. You will receive a return call within [...] Encounter Status:Closed by ASHLEY HERNANDEZ on 06/03/22 [facility] -------- TAMMY ANNA ([id number]) 1985 F Date Time Provider Department 06/03/22 CAROLINA SOLIZ [facility] During your visit today, we recorded the following information about you: Carolina Hendricks RN 06/03/2022 9:59 AM Signed NEUROSURGERY CARE COORDINATION [facility] SURGERY SCHEDULING ? Patient Tammy Anna accepts surgery date of 07/04/[address] Roy. Planned procedure is C5/6 ACDF. ? PAT will be completed at [facility]. ? Medications reviewed: Yes. Medications to be stopped prior to surgery: other : N/A. ? Additional pre-op clearances needed: per [facility] provider recommendations. ? Any implanted devices: No. ? Transplant History No ? Patient will require optimization lab work: per [facility] provider recommendations ? Questions answered. [...] Encounter Status:Closed by CAROLINA SOLIZ on 06/03/22 [facility] Vickie 06-02-2022 CNOV Office Visit ([facility] ) -------- TAMMY ANNA ([id number]) 1985 F Date Time Provider Department 06/02/22 3:00 PM REYES ROY [facility] During your visit today, we recorded the following information about you: Pulse Blood pressure 84/minute 138/86 Reyes Roy MD 06/02/2022 3:46 PM Signed SPINE SURGERY OUTPATIENT CONSULT This is an in-person visit. SERVICE DATE: 06/02/2022 PCP: Tonya Arriaga CNP REFERRING PROVIDER: Yovany Ahn [address] 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 Difficulty with zippers, buttons, small [...] summary, (more content not included)... Normal [facility] MRI CERVICAL SPINE WO IVCONo n 05-21-2022 MRI CERVICAL SPINE WO IVCON * * *Final Report* * * DATE OF EXAM: May 21 2022 3:05PM [id number] [id number] - MRI CERVICAL SPINE WO IVCON [...] vertebrae with counting from the craniocervical junction. Molding Machine Tender: PSCB Transcribe Date/Time: May 21 2022 3:48P Dictated by : NURIS DE PAZ MD This examination was interpreted and the report reviewed and electronically signed by: NURIS DE PAZ MD on May 21 2022 3:59PM EST [id number] Normal [facility] MRI LUMBAR SPINE WO IVCONon 05-21-2022 MRI LUMBAR SPINE WO IVCON * * *Final Report* * * DATE OF EXAM: May 21 2022 3:05PM [id number] [id number] - MRI LUMBAR SPINE WO IVCON [...] and assume there are 5 lumbar-type vertebrae. Molding Machine Tender: MAGGY Transcribe Date/Time: May 21 2022 3:44P Dictated by : NURIS DE PAZ MD This examination was interpreted and the report reviewed and electronically signed by: NURIS DE PAZ MD on May 21 2022 3:48PM EST [id number] Normal [facility] CBC W Auto Differential pane l (Bld)on 03-17-2022 Basophils (Bld) [#/Vol] <0.11 k/uL [facility] Basophils/100 WBC (Bld) 0.3 % [facility] Differential cell count method Nom (Bld) Auto [facility] Eosinophils (Bld) [#/Vol] 0.12 10*3/uL <0.46 k/uL [facility] Eosinophils/100 WBC (Bld) 1.8 % [facility] Erythrocyte distribution width (RBC) [Ratio] 13.4 % 11.5 - 15.0 % [facility] Hematocrit (Bld) [Volume fraction] 44.2 % 36.0 - 46.0 % [facility] Hemoglobin (Bld) [Mass/Vol] 14.9 g/dL 11.5 - 15.5 g/dL [facility] Immature granulocytes (Bld) [#/Vol] <0.10 k/uL [facility] Immature granulocytes/100 WBC (Bld) 0.1 % [facility] Lymphocytes (Bld) [#/Vol] 2.87 10*3/uL 1.00 - 4.00 k/uL [facility] Lymphocytes/100 WBC (Bld) 42.4 % [facility] MCH (RBC) [Entitic mass] 30.1 pg 26.0 - 34.0 pg [facility] MCHC (RBC) [Mass/Vol] 33.7 g/dL 30.5 - 36.0 g/dL [facility] MCV (RBC) [Entitic vol] 89.3 fL 80.0 - 100.0 fL [facility] Monocytes (Bld) [#/Vol] 0.46 10*3/uL <0.87 k/uL [facility] Monocytes/100 WBC (Bld) 6.8 % [facility] Neutrophils (Bld) [#/Vol] 3.29 10*3/uL 1.45 - 7.50 k/uL [facility] [facility] Neutrophils/100 WBC (Bld) 48.6 % [facility] Nucleated RBC (Bld) [#/Vol] <0.01 k/uL [facility] Nucleated RBC/100 WBC (Bld) [Ratio] 0.0 /100 WBC [facility] Platelet mean volume (Bld) [Entitic vol] 10.3 fL 9.0 - 12.7 fL [facility] Platelets (Bld) [#/Vol] 185 10*3/uL 150 - 400 k/uL [facility] RBC (Bld) [#/Vol] 4.95 10*6/uL 3.90 - 5.2 0 m/uL [facility] WBC (Bld) [#/Vol] 6.77 10*3/uL 3.70 - 11. 00 k/uL [facility] ESR Westergren method (Bld) [Velocity]on 03-17-2022 ESR (Bld) [Velocity] 2 mm/h 0 - 20 mm/hr [facility] No Panel Informationon 03-17 Radiology Study observation (narrative) [facility] XR CERV OTHER 4V AP/LAT/OBLo n 03-17-2022 [facility] XR Cervical spine AP and Lat eral and obliqueon 03-17-2022 IMPRESSION: 1. CURVATURE 2. DEGENERATIVE CHANGES 3. ANATOMIC VARIANT: PROMINENT C7 TRANSVERSE PROCESSES. Molding Machine Tender: PSCB Transcribe Date/Time: Mar 17 2022 2:32P Dictated by : SHANTE MILLER MD This examination was interpreted and the report reviewed and electronically signed by: SHANTE MILLER MD on Mar 17 2022 2:35PM [facility] DIVISION OF RADIOLOGY * * *Final Report* [...] on the LEFT. DIVISION OF RADIOLOGY Provider, [facility] - 03/17/2022 * * *Final Report* * [...] 3. ANATOMIC VARIANT: PROMINENT C7 TRANSVERSE PROCESSES. Molding Machine Tender: MAGGY Transcribe Date/Time: Mar 17 2022 2:32P Dictated by : SHANTE MILLER MD This examination was interpreted and the report reviewed and electronically signed by: SHANTE MILLER MD on Mar 17 2022 2:35PM EST [facility] XR Cervical spine AP and Lat eral and obliqueOrdered By: Ccf Provider on 03-17-2022 [facility] XR LUMBAR GENERAL 3V AP/LAT/ L5-S1on 03-17-2022 [facility] XR Lumbar spine 3 Viewson IMPRESSION: MILD SCOLIOSIS. 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 Molding Machine Tender: PSCB Transcribe Date/Time: Mar 17 2022 2:35P Dictated by : SHANTE MILLER MD This examination was interpreted and the report reviewed and electronically signed by: SHANTE MILLER MD on Mar 17 2022 2:37PM EST DIVISION OF RADIOLOGY * * *Final Report* [...] hips appear preserved. DIVISION OF RADIOLOGY Provider, Jarad Ortiz - 03/17/2022 * * *Final Report* * [...] SCOLIOSIS. 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 Molding Machine Tender: MAGGY Transcribe Date/Time: Mar 17 2022 2:35P Dictated by : SHANTE MILLER MD This examination was interpreted and the report reviewed and electronically signed by: SHANTE MILLER MD on Mar 17 2022 2:37PM [facility] Serum nuclear antibody titer by immunofluorescenceon 11-27-2021 Nuclear Ab IF (S) [Titer] See comment [facility] Work Phone: Comment on above: Antinuclear Antibodi es IFA Antinuclear Antibodies, IFA Positive Abnormal Negative < 1:80 Borderline 1:80 Positive > 1:80 Homogeneous Pattern 1:160 High ICAP nomenclature: AC-1Note: For more information about Hep-2 cell patterns useANApatterns.org, the official website for the InternationalConsensus on Antinuclear Antibody (JONY) Patterns (ICAP). ---- Note: A positive JONY result may occur in healthy individualsor be associated with a variety of diseases. Seeinterpretation below:Pattern Antigen Detected Suggested Disease Association Homogenous DNA(ds,ss,n), High titers - SLE (Smooth) Histone Speckled Sm,PARALEGAL SUPERVISOR,SCL-70, SLE,MCTD, Scleroderma, SS-A/SS-B Sjogrens Nucleolar SCL-70,PM-1/SCL High titers Scleroderma Polymyositis/scleroderma over- lap Centromere Centromere PSS w/Crest syndrome variable Nuclear Dot Sp100,n24-yodjsy Primary Biliary Cirrhosis Nuclear GP210, Primary Biliary CirrhosisMembrane brent A,B,C TESTING PERFORMED AT [facility]. ORIGINAL REPORT ON FILE IN LAB CONTAINS ADDITIONAL TEST SITE INFORMATION. No Panel Informationon 10-25 Anti-Nuclear Antibody Screen Positive Negative [facility] Work Phone: Comment on above: Performed at: [employer] [id number] Director: Trino Dozier PhD, Phone: [phone] No Panel Informationon 09-13 Anti-Nuclear Antibody Screen Positive Negative [facility] Work Phone: Comment on above: Performed at: [employer] [place] [id number] Director: Trino Dozier PhD, Phone: [phone] Absolute lymphocyte counton 2021 Lymphocytes Auto (Unsp spec) [#/Vol] 1.20 10*3/uL 0.83-4.51 [facility] Work Phone: Basophil percentageon 2021 Basophils/100 WBC (Bld) 0.2 % 0-1 [facility] Work Phone: Eosinophils/100 WBC (Bld) 0.5 % 0-5 [facility] Work Phone: [phone] Neutrophils (Bld) [#/Vol] 4.3 10*3/uL 2.0-7.7 [facility] Work Phone: Neutrophils/100 WBC (Bld) 74.0 % 47-70 [facility] Work Phone: WBC (Bld) [#/Vol] 5.8 10*3/uL 4.4-11.0 [facility] Work Phone: Blood erythrocytes count (nu mber/volume)on 2021 RBC (Bld) [#/Vol] 4.64 10*6/uL 4.2-5.[address] [facility] Work Phone: [phone] Blood hemoglobin measurement (mass/volume)on 2021 Hemoglobin (Bld) [Mass/Vol] 14.1 g/dL 12.0-15.0 [facility] Work Phone: Blood lymphocytes/100 leukoc yteson 2021 Lymphocytes/100 WBC (Bld) 20.8 % 19-41 [facility] Work Phone: Blood monocytes/100 leukocyt eson 2021 Monocytes/100 WBC (Bld) 4.2 % 0-10 [facility] Work Phone: Blood platelet mean volumeon 2021 Platelet mean volume (Bld) [Entitic vol] 10.4 fL 6.2-12.0 [facility] Work Phone: Determination of erythrocyte mean corpuscular volume (MCV)on 2021 MCV (RBC) [Entitic vol] 89.2 fL 81-99 [facility] Work Phone: Hematocrit Auto (Bld) [Volum e fraction]on 2021 Hematocrit (Bld) [Volume fraction] 41.4 % 37-47 [facility] Work Phone: Laboratory - Hematology and Cell countson 2021 Erythrocyte distribution width (RBC) [Entitic vol] 42.7 fL 35.1-43.9 [facility] Work Phone: Erythrocyte distribution width (RBC) [Ratio] 13.1 % 11.6-14.6 [facility] Work Phone: Immature granulocytes/100 WBC (Bld) 0.300 % 0.0-0.9 [facility] Work Phone: Comment on above: IG% - Immature Granu locytes (promyelocytes, myelocytes and metamyelocytes) > 1% indicates that a LEFT SHIFT is Present. MCH (RBC) [Entitic mass] 30.4 pg 27.0-32.0 [facility] Work Phone: Nucleated RBC/100 WBC (Bld) [Ratio] 0 % 0-5 [facility] Work Phone: MCHC Auto (RBC) [Mass/Vol]on 2021 MCHC (RBC) [Mass/Vol] 34.1 g/dL 32-36 [facility] Work Phone: No Panel Informationon 09-05 Anti-Nuclear Antibody Screen Positive Negative [facility] Work Phone: Comment on above: Performed at: - [address] [id number] Director: Trino Dozier PhD, Phone: [phone] Platelets bldon 2021 Platelets (Bld) [#/Vol] 161 10*3/uL 150-450 [facility] Work Phone: Serum rheumatoid factor dete ctionon 2021 Rheumatoid factor Ql (S) < 10.0 IU/mL <15 [facility] Work Phone: Absolute lymphocyte counton 08-29-2021 Lymphocytes Auto (Unsp spec) [#/Vol] 2.51 10*3/uL 0.83-4.51 [facility] Work Phone: Basophil percentageon 2021 Basophils/100 WBC (Bld) 0.4 % 0-1 [facility] Work Phone: Bilirubin [Mass/Vol] 0.30 mg/dL 0.20-1.00 [facility] Work Phone: Comment on above: For patients on eltr ombopag therapy, use of Dimension [place] TBIL is not recommended. Chloride [Moles/Vol] 109 mmol/L 98-107 [facility] Work Phone: Eosinophils/100 WBC (Bld) 2.9 % 0-5 [facility] Work Phone: [phone] Glucose [Mass/Vol] 97 mg/dL 74-106 [facility] Work Phone: Neutrophils (Bld) [#/Vol] 2.1 10*3/uL 2.0-7.7 [facility] Work Phone: Neutrophils/100 WBC (Bld) 40.8 % 47-70 [facility] Work Phone: Potassium [Moles/Vol] 3.7 mmol/L 3.5-5.1 [facility] Work Phone: Protein [Mass/Vol] 6.8 g/dL 6.4-8.2 [facility] Work Phone: Sodium [Moles/Vol] 140 mmol/L 136-145 [facility] Work Phone: WBC (Bld) [#/Vol] 5.2 10*3/uL 4.4-11.0 [facility] Work Phone: Blood erythrocytes count (nu mber/volume)on 08-29-2021 RBC (Bld) [#/Vol] 4.49 10*6/uL 4.2-5.4 [facility]: Blood hemoglobin measurement (mass/volume)on 08-29-2021 Hemoglobin (Bld) [Mass/Vol] 13.5 g/dL 12.0-15.0 [facility] Work Phone: Blood lymphocytes/100 leukoc yteson 08-29-2021 Lymphocytes/100 WBC (Bld) 48.7 % 19-41 [facility] Work Phone: Blood monocytes/100 leukocyt eson 08-29-2021 Monocytes/100 WBC (Bld) 7.0 % 0-10 [facility] Work Phone: Blood platelet mean volumeon 08-29-2021 Platelet mean volume (Bld) [Entitic vol] 10.6 fL 6.2-12.0 [facility] Work Phone: Determination of erythrocyte mean corpuscular volume (MCV)on 08-29-2021 MCV (RBC) [Entitic vol] 88.2 fL 81-99 [facility] Work Phone: Erythrocyte sedimentation ra esperanza 08-29-2021 ESR (Bld) [Velocity] 4 mm/h 0-30 [facility]: HIV 1 and HIV-2 antibody ass ay with HIV-1 p24 antigen detectionon 08-29-2021 HIV 1+2 Ab+HIV1 p24 Ag IA Ql Non-Reactive Nonreactive [facility] Work Phone: Hematocrit Auto (Bld) [Volum e fraction]on 08-29-2021 Hematocrit (Bld) [Volume fraction] 39.6 % 37-47 [facility] Work Phone: Laboratory - Chemistry and C hemistry - challengeon 08-29-2021 ALP [Catalytic activity/Vol] 79 U/L 45-117 [facility] Work Phone: ALT [Catalytic activity/Vol] 28 U/L 13-56 [facility] Work Phone: CO2 [Moles/Vol] 26.0 mmol/L 21.0-32.0 [facility] Work Phone: Globulin (S) [Mass/Vol] 3.0 g/dL 2.2-4.2 [facility] Work Phone: Urea nitrogen/Creatinine [Mass ratio] 19.8 mg/mg 10-20 [facility] Work Phone: Laboratory - Hematology and Cell countson 08-29-2021 Erythrocyte distribution width (RBC) [Entitic vol] 42.3 fL 35.1-43.9 [facility] Work Phone: Erythrocyte distribution width (RBC) [Ratio] 13.0 % 11.6-14.6 [facility] Work Phone: Immature granulocytes/100 WBC (Bld) 0.200 % 0.0-0.9 [facility] Work Phone: Comment on above: IG% - Immature Granu locytes (promyelocytes, myelocytes and metamyelocytes) > 1% indicates that a LEFT SHIFT is Present. MCH (RBC) [Entitic mass] 30.1 pg 27.0-32.0 [facility] Work Phone: Nucleated RBC/100 WBC (Bld) [Ratio] 0 % 0-5 [facility] Work Phone: MCHC Auto (RBC) [Mass/Vol]on 08-29-2021 MCHC (RBC) [Mass/Vol] 34.1 g/dL 32-36 [facility] Work Phone: No Panel Informationon 08-29 Estimated GFR (MDRD) Amer 110 mL/min >60 [facility] Work Phone: Comment on above: GFR Calc Estimated GFR (MDRD) Non-Af Amer 91 mL/min >60 [facility] Work Phone: Comment on above: Non- GFR Calc Platelets bldon 08-29-2021 Platelets (Bld) [#/Vol] 121 10*3/uL 150-450 [facility] Work Phone: Serum Dariel Edwards virus cap dariel IgG antibody assay (units/volume)on 08-29-2021 EBV capsid IgG Qn (S) [arb'U]/mL 0.0-17.9 [facility] Work Phone: Comment on above: Negative <18.0 Equiv ocal 18.0 - 21.9 Positive >21.9Performed at: [facility] [place] [id number] Director: Trino Dozier PhD, Phone: [phone] Serum Dariel Edwards virus ear ly IgG antibody assay (units/volume)on 08-29-2021 EBV early IgG Qn (S) <9.0 U/mL 0.0-8.9 [facility] Work Phone: Comment on above: Negative < 9.0 Equiv ocal 9.0 - 10.9 Positive >10.9 Serum or plasma albumin jennifer urement (mass/volume)on 08-29-2021 Albumin [Mass/Vol] 3.8 g/dL 3.2-5.0 [facility] Work Phone: Serum or plasma albumin/glob ulin mass ratioon 08-29-2021 Albumin/Globulin [Mass ratio] 1.3 {ratio} 0.9-2.4 [facility] Work Phone: Serum or plasma calcium jennifer urement (mass/volume)on 08-29-2021 Calcium [Mass/Vol] 9.0 mg/dL 8.5-10.1 [facility] Work Phone: Serum or plasma creatinine m easurement (mass/volume)on 08-29-2021 Creatinine [Mass/Vol] 0.76 mg/dL 0.55-1.02 [facility] Work Phone: Comment on above: The validity of the calculated GFR & GFRAA in patients over 70 years has not been determined. Clinical correlation is essential. Serum or plasma urea nitroge n measurement (mass/volume)on 08-29-2021 Urea nitrogen [Mass/Vol] 15 mg/dL 7-18 [facility] Work Phone: Thin prep Papanicolaou smear with manual screeningon 08-29-2021 Thin prep Papanicolaou smear with manual screening 18 U/L 15-37 [facility] Work Phone: Thin prep Papanicolaou smear with manual screening 5 5-15 [facility] Work Phone: EGD DIAGNOSTICon 05-23-2021 [facility] XR DIGIT GENERAL 3V FRONTAL/ LAT/OBL RIGHTon 05-21-2021 [facility] XR Finger - right AP and Lat eral and obliqueon 05-21-2021 IMPRESSION: Mild soft tissue swelling without radiographic evidence of acute osseous abnormality. Molding Machine Tender: MAGGY Transcribe Date/Time: May 21 2021 12:38P Dictated by : JULITA VELEZ MD This examination was interpreted and the report reviewed and electronically signed by: JULITA VELEZ MD on May 21 2021 12:57PM [facility] DIVISION OF RADIOLOGY * * *Final Report* [...] proximal interphalangeal joint. DIVISION OF RADIOLOGY Provider, [facility] - 05/21/2021 * * *Final Report* [...] without radiographic evidence of acute osseous abnormality. Molding Machine Tender: PSCB Transcribe Date/Time: May 21 2021 12:38P Dictated by : JULITA VELEZ MD This examination was interpreted and the report reviewed and electronically signed by: JULITA VELEZ MD on May 21 2021 12:57PM EST [facility] Radiology Study observation (narrative) [facility] XR Finger - right AP and Lat eral and obliqueOrdered By: Ccf Provider on 05-21-2021 [facility] Comp Metabolic Panelon 01-30 Albumin [Mass/Vol] 4.0 g/dL Normal 3.9-4.9 [facility] Lab Comment on above: Performed By: #### C MP, CBC #### [facility] Routine Lab [address] [place], [place] [address] ALP [Catalytic activity/Vol] 79 U/L Normal 34-123 [facility] Reference Lab Comment on above: Performed By: #### C MP, CBC #### [facility] Routine Lab [address] [place], [place] [address] ALT [Catalytic activity/Vol] 15 U/L Normal 7-38 [facility] Reference Lab Comment on above: Performed By: #### C MP, CBC #### [facility] Routine Lab [address] [place], [place] [address] Anion gap [Moles/Vol] 9 mmol/L Normal 9-18 [facility] Reference Lab Comment on above: Performed By: #### C MP, CBC #### [facility] Routine Lab [address] [place], [place] [address] AST [Catalytic activity/Vol] 22 U/L Normal 13-35 [facility] Reference Lab Comment on above: Performed By: #### C MP, CBC #### [facility] Routine Lab [address] [place], [place] [address] Bilirubin [Mass/Vol] mg/dL Low 0.2-1.3 [facility] Reference Lab Comment on above: Performed By: #### C MP, CBC #### [facility] Routine Lab [address] [place], [place] [address] Calcium [Mass/Vol] 9.1 mg/dL Normal 8.5-10.2 [facility] Reference Lab Comment on above: Performed By: #### C MP, CBC #### [facility] Routine Lab [address] [place], [place] [address] Chloride [Moles/Vol] 107 mmol/L High 97-105 [facility] Reference Lab Comment on above: Performed By: #### C MP, CBC #### [facility] Routine Lab [address] [place], [place] [address] CO2 [Moles/Vol] 26 mmol/L Normal 22-30 [facility] Reference Lab Comment on above: Performed By: #### C MP, CBC #### [facility] Routine Lab [address] [place], [place] [address] Creatinine [Mass/Vol] 0.79 mg/dL Normal 0.58-0.96 [facility] Reference Lab Comment on above: Performed By: #### C MP, CBC #### [facility] Routine Lab [address] [place], [place] [address] eGFR- Amer. >60 Normal [facility] Reference Lab Comment on above: Performed By: #### C MP, CBC #### [facility] Routine Lab [address] [place], [place] [address] eGFR-All Other Races >60 Normal [facility] Reference Lab Comment on above: Performed By: #### C MP, CBC #### [facility] Routine Lab [address] [place], [place] [address] Glucose [Mass/Vol] 86 mg/dL Normal 74-99 [facility] Reference Lab Comment on above: Performed By: #### C MP, CBC #### [facility] Routine Lab [address] [place], [place] [address] Potassium [Moles/Vol] 4.5 mmol/L Normal 3.7-5.1 [facility] Reference Lab Comment on above: Performed By: #### C MP, CBC #### [facility] Routine Lab [address] [place], [place] [address] Protein [Mass/Vol] 6.3 g/dL Normal 6.3-8.0 [facility] Reference Lab Comment on above: Performed By: #### C MP, CBC #### [facility] Routine Lab [address] [place], [place] [address] Sodium [Moles/Vol] 142 mmol/L Normal 136-144 [facility] Reference Lab Comment on above: Performed By: #### C MP, CBC #### [facility] Routine Lab [address] [place], [place] [address] Urea nitrogen [Mass/Vol] 18 mg/dL Normal 7-21 [facility] Reference Lab Comment on above: Performed By: #### C MP, CBC #### [facility] Routine Lab [address] [place], [place] [address] CBCon 01-29-2021 Absolute nRBC <0.01 Normal <0.01 [facility] Reference Lab Comment on above: Performed By: #### C MP, CBC #### [facility] Routine Lab [address] [place], [place] [address] Erythrocyte distribution width (RBC) [Ratio] 13.3 % Normal 11.5-15.0 [facility] Reference Lab Comment on above: Performed By: #### C MP, CBC #### [facility] Routine Lab [address] [place], [place] [address] Hematocrit (Bld) [Volume fraction] 39.7 % Normal 36.0-46.0 [facility] Reference Lab Comment on above: Performed By: #### C MP, CBC #### [facility] Routine Lab [address] [place], [place] [address] Hemoglobin (Bld) [Mass/Vol] 13.2 g/dL Normal 11.5-15.5 [facility] Reference Lab Comment on above: Performed By: #### C MP, CBC #### [facility] Routine Lab [address] [place], [place] [address] MCH 30.8 pG Normal 26.0-34.0 [facility] Reference Lab Comment on above: Performed By: #### C MP, CBC #### [facility] Routine Lab [address] [place] [address] MCHC (RBC) [Mass/Vol] 33.2 g/dL Normal 30.5-36.0 [facility] Reference Lab Comment on above: Performed By: #### C MP, CBC #### [facility] Routine Lab [address] [place], [place] [address] MCV (RBC) [Entitic vol] 92.5 fL Normal 80.0-100.0 [facility] Reference Lab Comment on above: Performed By: #### C MP, CBC #### [facility] Routine Lab [address] [place], [place] [address] Platelet mean volume (Bld) [Entitic vol] 11.3 fL Normal 9.0-12.7 [facility] Reference Lab Comment on above: Performed By: #### C MP, CBC #### [facility] Routine Lab [address] [place], [place] [address] Platelets (Bld) [#/Vol] 151 10*3/uL Normal 150-400 [facility] Reference Lab Comment on above: Performed By: #### C MP, CBC #### [facility] Routine Lab [address] [place], [place] [id number] RBC (Bld) [#/Vol] 4.29 10*6/uL Normal 3.90-5.20 [facility] Reference Lab Comment on above: Performed By: #### C MP, CBC #### [facility] Routine Lab [address] [place], [place] [id number] WBC (Bld) [#/Vol] 6.21 10*3/uL Normal 3.70-11.00 [facility] Reference Lab Comment on above: Performed By: #### C MP, CBC #### [facility] Routine Lab [address] [place], [place] [id number] Vital Signs Date Time Vital Sign Value Performing Clinician Facility 10-31-2024 22:47-0400 Body temperature 98 [degF] [facility] Work Phone: [phone] [place] [address] 10-31-2024 22:47-0400 Diastolic blood pressure 82 mm[Hg] [facility] Work Phone: [phone] [place] [address] 10-31-2024 22:47-0400 Heart rate 67 /min [facility] Work Phone: [phone] [place] [address] 10-31-2024 22:47-0400 Respiratory rate 18 /min [facility] Work Phone: [phone] [place] [address] 10-31-2024 22:47-0400 SaO2% (BldA) [Mass fraction] 97 % [facility] Work Phone: [phone] [place] [address] 10-31-2024 22:47-0400 Systolic blood pressure 116 mm[Hg] [facility] Work Phone: [phone] [place] [address] 10-31-2024 20:08-0400 Body height 175.26 cm [facility] Work Phone: [phone] [place] [address] 10-31-2024 20:08-0400 Body mass index (BMI) [Ratio] 30.3 kg/m2 [facility] Work Phone: [phone] [place] [address] 10-31-2024 20:08-0400 Body weight 93.24 kg [facility] Work Phone: [phone] [place] [address] 09-30-2024 14:45-0400 Body height 175.26 cm [facility] Work Phone: [phone] [place] [address] 09-30-2024 14:45-0400 Body mass index (BMI) [Ratio] 29.2 kg/m2 [facility] Work Phone: [phone] [place] [address] 09-30-2024 14:45-0400 Body weight 89.81 kg [facility] Work Phone: [phone] [place] [address] 06-16-2024 10:00-0400 Diastolic blood pressure 88 mm[Hg] [facility] Work Phone: [phone] [place] [address] 06-16-2024 10:00-0400 Heart rate 68 /min [facility] Work Phone: [phone] [place] [address] 06-16-2024 10:00-0400 Respiratory rate 18 /min [facility] Work Phone: [phone] [place] [address] 06-16-2024 10:00-0400 SaO2% (BldA) [Mass fraction] 98 % [facility] Work Phone: [phone] [place] [address] 06-16-2024 10:00-0400 Systolic blood pressure 170 mm[Hg] [facility] Work Phone: [phone] [place] [address] 06-16-2024 06:26-0400 Body mass index (BMI) [Ratio] 28.6 kg/m2 [facility] Work Phone: [phone] [place] [address] 06-16-2024 06:26-0400 Body temperature 97.9 [degF] [facility] Work Phone: [phone] [place] [address] 06-16-2024 06:26-0400 Body weight 88.1 kg [facility] Work Phone: [phone] [place] [address] 05-20-2023 15:03-0400 Body temperature 97.3 [degF] [facility] 05-20-2023 15:03-0400 Diastolic blood pressure 118 mm[Hg] [facility] 05-20-2023 15:03-0400 Heart rate 107 /min [facility] 05-20-2023 15:03-0400 Respiratory rate 16 /min [facility] 05-20-2023 15:03-0400 SaO2% (BldA) [Mass fraction] 100 % [facility] 05-20-2023 15:03-0400 Systolic blood pressure 148 mm[Hg] [facility] 05-20-2023 14:20-0400 Body height 175.26 cm [facility] 05-20-2023 14:20-0400 Body mass index (BMI) [Ratio] 30.5 kg/m2 [facility] 05-20-2023 14:20-0400 Body weight 93.89 kg [facility] 05-10-2023 10:39-0400 Body temperature 98.1 [degF] [facility] 05-10-2023 10:39-0400 Diastolic blood pressure 78 mm[Hg] [facility] 05-10-2023 10:39-0400 Heart rate 78 /min [facility] 05-10-2023 10:39-0400 Respiratory rate 16 /min [facility] 05-10-2023 10:39-0400 SaO2% (BldA) [Mass fraction] 97 % [facility] 05-10-2023 10:39-0400 Systolic blood pressure 127 mm[Hg] [facility] 05-10-2023 09:41-0400 Body height 175.26 cm [facility] 05-10-2023 09:41-0400 Body mass index (BMI) [Ratio] 29.7 kg/m2 [facility] 05-10-2023 09:41-0400 Body weight 91.3 kg [facility] 05-09-2023 14:48-0400 Body temperature 98.2 [degF] Renato Montano MD Work Phone: [facility] 05-09-2023 14:48-0400 Body weight 91.6 kg Renato Montano MD Work Phone: [facility] 05-09-2023 14:48-0400 Diastolic blood pressure 76 mm[Hg] Renato Montano MD Work Phone: [facility] 05-09-2023 14:48-0400 Heart rate 63 /min Renato Montano MD Work Phone: [facility] 05-09-2023 14:48-0400 Respiratory rate 18 /min Renato Montano MD Work Phone: [facility] 05-09-2023 14:48-0400 SaO2% (BldA) [Mass fraction] 94 % Renato Montano MD Work Phone: [facility] 05-09-2023 14:48-0400 Systolic blood pressure 118 mm[Hg] Renato Montano MD Work Phone: [facility] 04-12-2023 13:19-0500 Body temperature 97.9 [degF] [facility] 04-12-2023 13:19-0500 Diastolic blood pressure 84 mm[Hg] [facility] 04-12-2023 13:19-0500 Heart rate 95 /min [facility] 04-12-2023 13:19-0500 Respiratory rate 18 /min [facility] 04-12-2023 13:19-0500 SaO2% (BldA) [Mass fraction] 99 % [facility] 04-12-2023 13:19-0500 Systolic blood pressure 138 mm[Hg] [facility] 04-12-2023 11:31-0500 Body height 175.26 cm [facility] 04-12-2023 11:31-0500 Body mass index (BMI) [Ratio] 30.3 kg/m2 [facility] 04-12-2023 11:31-0500 Body weight 93.16 kg [facility] 09-17-2022 13:20-0400 Body height 175.3 cm Divina Key MD Work Phone: [facility] 09-17-2022 13:20-0400 Body temperature 97.7 [degF] Divina Key MD Work Phone: [facility] 09-17-2022 13:20-0400 Body weight 95.94 kg Divina Key MD Work Phone: [facility] 09-17-2022 13:20-0400 Diastolic blood pressure 96 mm[Hg] Divina Key MD Work Phone: [facility] 09-17-2022 13:20-0400 Heart rate 81 /min Divina Key MD Work Phone: [facility] 09-17-2022 13:20-0400 Systolic blood pressure 136 mm[Hg] Divina Key MD Work Phone: [facility] 08-21-2022 12:16-0400 Body temperature 99.19 [degF] Reyes Roy MD Work Phone: [facility] 08-21-2022 12:16-0400 Diastolic blood pressure 85 mm[Hg] Reyes Roy MD Work Phone: [facility] 08-21-2022 12:16-0400 Heart rate 72 /min Reyes Roy MD Work Phone: [facility] 08-21-2022 12:16-0400 Systolic blood pressure 130 mm[Hg] Reyes Roy MD Work Phone: [facility] 07-23-2022 10:38-0400 Body temperature 98.4 [degF] Marcelina Alvarez PT Work Phone: [facility] 07-23-2022 10:38-0400 Diastolic blood pressure 88 mm[Hg] Marcelina Alvarez PT Work Phone: [facility] 07-23-2022 10:38-0400 Heart rate 69 /min Marcelina Alvarez PT Work Phone: [facility] 07-23-2022 10:38-0400 Respiratory rate 16 /min Marcelina Alvarez PT Work Phone: [facility] 07-23-2022 10:38-0400 SaO2% (BldA) [Mass fraction] 99 % Marcelina Alvarez PT Work Phone: [facility] 07-23-2022 10:38-0400 Systolic blood pressure 124 mm[Hg] Marcelina Loweox PT Work Phone: [facility] 07-22-2022 14:22-0400 Body temperature 97.59 [degF] [employer] Work Phone: [facility] 07-22-2022 14:22-0400 Diastolic blood pressure 84 mm[Hg] [employer] Work Phone: [facility] 07-22-2022 14:22-0400 Heart rate 77 /min [employer] Work Phone: [facility] 07-22-2022 14:22-0400 Respiratory rate 18 /min [employer] Work Phone: [facility] 07-22-2022 14:22-0400 SaO2% (BldA) [Mass fraction] 99 % [employer] Work Phone: [facility] 07-22-2022 14:22-0400 Systolic blood pressure 124 mm[Hg] [employer] Work Phone: [facility] 07-22-2022 13:48-0400 Heart rate 88 /min Caty Bousfield OT/L Work Phone: [facility] 07-22-2022 13:48-0400 SaO2% (BldA) [Mass fraction] 99 % Caty Bousfield OT/L Work Phone: [facility] 07-22-2022 13:13-0400 Body temperature 97.9 [degF] Caty Bousfield OT/L Work Phone: [facility] 07-22-2022 13:13-0400 Diastolic blood pressure 80 mm[Hg] Caty Bousfield OT/L Work Phone: [facility] 07-22-2022 13:13-0400 Systolic blood pressure 120 mm[Hg] Caty Bousfield OT/L Work Phone: [facility] 07-07-2022 12:27-0400 Body temperature 98.8 [degF] Troy Giffels PT Work Phone: [facility] 07-07-2022 12:27-0400 Diastolic blood pressure 70 mm[Hg] Troy Giffels PT Work Phone: [facility] 07-07-2022 12:27-0400 Heart rate 63 /min Troy Giffels PT Work Phone: [facility] 07-07-2022 12:27-0400 Respiratory rate 18 /min Troy Giffels PT Work Phone: [facility] 07-07-2022 12:27-0400 SaO2% (BldA) [Mass fraction] 94 % Troy Giffels PT Work Phone: [facility] 07-07-2022 12:27-0400 Systolic blood pressure 100 mm[Hg] Troy Giffels PT Work Phone: [facility] 06-04-2022 15:25-0400 Body height 175.3 cm Pacc 1 Work Phone: [facility] 06-04-2022 15:25-0400 Body temperature 99.7 [degF] Pacc 1 Work Phone: [facility] 06-04-2022 15:25-0400 Body weight 94.8 kg Pacc 1 Work Phone: [facility] 06-04-2022 15:25-0400 Diastolic blood pressure 84 mm[Hg] Pacc 1 Work Phone: [facility] 06-04-2022 15:25-0400 Heart rate 85 /min Pacc 1 Work Phone: [facility] 06-04-2022 15:25-0400 Respiratory rate 16 /min Pacc 1 Work Phone: [facility] 06-04-2022 15:25-0400 SaO2% (BldA) [Mass fraction] 94 % Pacc 1 Work Phone: [facility] 06-04-2022 15:25-0400 Systolic blood pressure 120 mm[Hg] [facility] 1 Work Phone: [facility] 06-02-2022 15:06-0400 Diastolic blood pressure 86 mm[Hg] Reyes Roy MD Work Phone: [facility] 06-02-2022 15:06-0400 Heart rate 84 /min Reyes Roy MD Work Phone: [facility] 06-02-2022 15:06-0400 Systolic blood pressure 138 mm[Hg] Reyes Roy MD Work Phone: [facility] 04-29-2022 10:00-0500 Diastolic blood pressure 84 mm[Hg] Dank Golias PT Work Phone: [facility] 04-29-2022 10:00-0500 Systolic blood pressure 122 mm[Hg] Dank Golias PT Work Phone: [facility] 04-23-2022 09:05-0500 Body height 175.3 cm Yovany Godfray PA-C Work Phone: [facility] 04-23-2022 09:05-0500 Body weight 92.08 kg Yovany Godfray PA-C Work Phone: [facility] 04-23-2022 09:05-0500 Diastolic blood pressure 87 mm[Hg] Yovany Godfray PA-C Work Phone: [facility] 04-23-2022 09:05-0500 Heart rate 83 /min Yovany Godfray PA-C Work Phone: [facility] 04-23-2022 09:05-0500 Systolic blood pressure 137 mm[Hg] Yovany Godfray PA-C Work Phone: [facility] 03-17-2022 12:56-0500 Body temperature 96.49 [degF] Divina Key MD Work Phone: [facility] 03-17-2022 12:56-0500 Body weight 90.27 kg Divina Key MD Work Phone: [facility] 03-17-2022 12:56-0500 Diastolic blood pressure 76 mm[Hg] Divina Key MD Work Phone: [facility] 03-17-2022 12:56-0500 Heart rate 76 /min Divina Key MD Work Phone: [facility] 03-17-2022 12:56-0500 Systolic blood pressure 112 mm[Hg] Divina Key MD Work Phone: [facility] 03-04-2022 12:22-0500 Body height 175.26 cm [facility] Work Phone: 03-04-2022 12:22-0500 Body mass index (BMI) [Ratio] 29.5 kg/m2 [facility] Work Phone: 03-04-2022 12:22-0500 Body temperature 97.9 [degF] [facility] Work Phone: 03-04-2022 12:22-0500 Body weight 90.71 kg [facility] Work Phone: 03-04-2022 12:22-0500 Diastolic blood pressure 110 mm[Hg] [facility] Work Phone: 03-04-2022 12:22-0500 Heart rate 85 /min [facility] Work Phone: 03-04-2022 12:22-0500 Respiratory rate 16 /min [facility] Work Phone: 03-04-2022 12:22-0500 SaO2% (BldA) [Mass fraction] 99 % [facility] Work Phone: 03-04-2022 12:22-0500 Systolic blood pressure 139 mm[Hg] [facility] Work Phone: 12-03-2021 11:01-0400 Diastolic blood pressure 91 mm[Hg] [facility] Work Phone: 12-03-2021 11:01-0400 SaO2% (BldA) [Mass fraction] 100 % [facility] Work Phone: 12-03-2021 11:01-0400 Systolic blood pressure 130 mm[Hg] [facility] Work Phone: 12-03-2021 09:36-0400 Body height 175.26 cm [facility] Work Phone: 12-03-2021 09:36-0400 Body mass index (BMI) [Ratio] 29.3 kg/m2 [facility] Work Phone: 12-03-2021 09:36-0400 Body temperature 97.2 [degF] [facility] Work Phone: 12-03-2021 09:36-0400 Body weight 90.2 kg [facility] Work Phone: 12-03-2021 09:36-0400 Heart rate 85 /min [facility] Work Phone: 12-03-2021 09:36-0400 Respiratory rate 14 /min [facility] Work Phone: 05-23-2021 11:50-0400 Diastolic blood pressure 80 mm[Hg] Mckinley Mendez MD Work Phone: [facility] 05-23-2021 11:50-0400 Heart rate 68 /min Mckinley Mendez MD Work Phone: [facility] 05-23-2021 11:50-0400 Respiratory rate 16 /min Mckinley Mendez MD Work Phone: [facility] 05-23-2021 11:50-0400 SaO2% (BldA) [Mass fraction] 100 % Mckinley Mendez MD Work Phone: [facility] 05-23-2021 11:50-0400 Systolic blood pressure 120 mm[Hg] Mckinley Mendez MD Work Phone: [facility] 05-23-2021 11:30-0400 Body temperature 97.81 [degF] Mckinley Mendez MD Work Phone: [facility] 05-23-2021 10:38-0400 Body height 175.3 cm Mckinley Mendez MD Work Phone: [facility] 05-23-2021 10:38-0400 Body weight 84.82 kg Mckinley Mendez MD Work Phone: [facility] 05-21-2021 11:03-0400 Body temperature 98.01 [degF] Tiera Athy PA-C Work Phone: [facility] 05-21-2021 11:03-0400 Body weight 84.55 kg Tiera Athy PA-C Work Phone: [facility] 05-21-2021 11:03-0400 Diastolic blood pressure 68 mm[Hg] Tiera Athy PA-C Work Phone: [facility] 05-21-2021 11:03-0400 Heart rate 54 /min Tiera Athy PA-C Work Phone: [facility] 05-21-2021 11:03-0400 Respiratory rate 18 /min Tiera Athy PA-C Work Phone: [facility] 05-21-2021 11:03-0400 SaO2% (BldA) [Mass fraction] 97 % Tiera Athy PA-C Work Phone: [facility] 05-21-2021 11:03-0400 Systolic blood pressure 122 mm[Hg] Tiera Athy PA-C Work Phone: [facility] Encounters Encounter Date Encounter Type Care Provider Facility Start: 11-22-2024 ambulatory Jessica Damico Facility:[facility] Start: 11-01-2024 End: 11-01-[address] [facility] Work Phone: [facility] Start: 11-01-2024 End: 11-01-2024 Patient encounter procedure Jessica Damico PA [facility] Work Phone: Start: 11-01-2024 End: 11-01-2024 ambulatory Jessica Damico Facility:[facility] Start: 10-31-2024 End: 10-31-2024 Emergency department patient visit [facility] Work Phone: -Emergency Department Work Phone: Start: 09-30-2024 End: 09-30-[address] Abel Atkins MD -[facility] Start: 09-30-2024 End: 09-30-[address] [facility] Work Phone: -[facility] Start: 06-16-2024 End: 06-16-2024 Emergency department patient visit Dr. Yung Wright DO -Emergency Department Work Phone: Start: 03-28-2024 End: 03-28-2024 Emergency department patient visit Henry Audrey Facility:[facility] Start: 03-06-2024 End: 03-06-2024 Emergency department patient visit Damari Beyer Facility:[facility] Start: 05-20-2023 End: 05-20-2023 Emergency department patient visit [facility]gency [facility] Work Phone: Start: 05-10-2023 End: 05-10-2023 Emergency department patient visit [facility] Work Phone: Start: 05-09-2023 End: 05-09-2023 ambulatory TONYA ARRIAGA Facility:[facility] Start: 05-09-2023 End: 05-09-2023 Patient encounter procedure Renato Montano MD Work Phone: [facility] Comment on above: Toothache (Primary D x) Start: 04-12-2023 End: 04-12-2023 Emergency department patient visit [facility] Work Phone: Start: 11-27-2022 End: 11-27-2022 ambulatory TONYA ARRIAGA Facility:[facility] Start: 11-27-2022 End: 11-27-2022 ambulatory Reyes Roy MD Work Phone: Neurosurgery Comment on above: Cervical stenosis of spine (Primary Dx) Start: 11-27-2022 End: 11-27-2022 Telemedicine consultation with patient Reyes Roy MD Work Phone: [facility] Start: 11-25-2022 End: 11-25-2022 ambulatory REYES ROY Facility:[facility] Start: 11-25-2022 End: 11-25-2022 Subsequent hospital visit by physician Tim [facility] Work Phone: Radiology Comment on above: Cervical myelopathy (HCC) [G95.9] Start: 09-17-2022 End: 09-17-2022 ambulatory DIVINA SANTIZOPRASERT Facility:[facility] Start: 09-17-2022 End: 09-17-2022 Patient encounter procedure Divina Key MD Work Phone: Rheumatology Comment on above: Fibromyalgia (Primar y Dx); Cervical myelopathy (HCC) Start: 08-22-2022 Telephone encounter Reyes Vidal i, MD Work Phone: Neurosurgery Comment on above: Patient Question Start: 08-21-2022 End: 08-21-2022 ambulatory TONYA Jamal ARRIAGA Facility:[facility] Start: 08-21-2022 End: 08-21-2022 Patient encounter procedure Reyes Roy MD Work Phone: Neurosurgery Comment on above: Cervical myelopathy (HCC) (Primary Dx) Start: 07-23-2022 End: 07-23-2022 Home visit Marcelina Alvarez PT Work Phone: [facility] Comment on above: PT AGENCY DC W VISIT Start: 07-22-2022 End: 07-22-2022 Home visit Meeta [employer] Work Phone: [facility] Comment on above: [employer]S [employer] ROUTINE OT DISC DC W VISIT Start: 07-22-2022 End: 07-22-2022 ambulatory REYES ROY Facility:[facility] Start: 07-22-2022 End: 07-22-2022 Nursing evaluation of patient and report Carolina Soliz RN Neurosurgery Comment on above: Presence of surgical incision (Primary Dx) Start: 07-07-2022 End: 07-07-2022 Home visit Troy Rodriguez PT Work Phone: [facility] Comment on above: PT SOC Start: 07-04-2022 End: 07-05-2022 Evaluation and management of inpatient REYES ROY Facility:[facility] Start: 07-03-2022 Telephone encounter Carolina Soliz RN Neurosurgery Comment on above: preop info Start: 06-26-2022 Telephone encounter Reyes Vidal i, MD Work Phone: Neurosurgery Comment on above: Forms Start: 06-12-2022 Admission to [facility] Carolina Soliz RN Neurosurgery Comment on above: surgery information Start: 06-12-2022 E-mail encounter fro m caregiver Carolina Soliz RN [facility] Start: 06-10-2022 End: 06-10-2022 ambulatory REYES ROY Facility:[facility] Start: 06-10-2022 End: 06-10-2022 Subsequent hospital visit by physician Ct [facility]) Work Phone: Cat Scan Comment on above: Cervical myelopathy (HCC) [G95.9] Start: 06-06-2022 Telephone encounter Yovany magallanes PA-C Work Phone: [facility] Comment on above: Patient Update Start: 06-04-2022 Encounter for other preprocedural examination TONYA ARRIAGA [facility] Start: 06-04-2022 End: 06-04-2022 Admission to establishment [facility] Work Phone: [facility] Start: 06-04-2022 End: 06-05-2022 ambulatory [facility] 1 Work Phone: Pre Anesthesia Comment on above: Pre-operative examin ation (Primary Dx); Atrial paroxysmal tachycardia (HCC); Anxiety attack; Current smoker; Gastroesophageal reflux disease, unspecified whether esophagitis present; Class 1 obesity due to excess calories without serious comorbidity with body mass index (BMI) of 30.0 to 30.9 in adult Start: 06-04-2022 End: 06-04-2022 Preprocedural examination done [place] [id number] Work Phone: Pre Anesthesia Start: 06-03-2022 Telephone encounter Carolina Soliz RN Neurosurgery Comment on above: surgery scheduling Appointment Start: 06-02-2022 End: 06-02-2022 ambulatory TONYA [employer] [facility] Facility:[facility] Start: 06-02-2022 End: 06-02-2022 Patient encounter procedure Reyes Roy MD Work Phone: Neurosurgery Comment on above: Cervical myelopathy (HCC) (Primary Dx); Cervical stenosis of spine Start: 05-27-2022 End: 05-27-2022 ambulatory TONYA [employer] ARRIAGA Facility:[facility] Start: 05-21-2022 End: 05-21-2022 ambulatory [facility] Facility:[facility] Start: 04-29-2022 End: 04-29-2022 ambulatory Dank Racheal PT Work Phone: [facility] Comment on above: 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; Pain in both upper extremities; Neck pain; Imbalance; Impaired dexterity; Acute back pain with sciatica, right; Cervicalgia Start: 04-23-2022 End: 04-23-2022 Patient encounter procedure Yovany Ahn PA-C Work Phone: [facility] Comment on above: 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 (Primary Dx); Pain in both upper extremities; Neck pain; Imbalance; Bladder dysfunction; Impaired dexterity Start: 03-17-2022 End: 03-17-2022 Subsequent hospital visit by physician Tim [facility] Work Phone: Radiology Comment on above: Multiple joint pain [M25.50] Start: 03-17-2022 End: 03-17-2022 Patient encounter procedure Divina Key MD Work Phone: Rheumatology Comment on above: Multiple joint pain (Primary Dx); Chronic midline low back pain with bilateral sciatica; Neck pain; Positive JONY (antinuclear antibody); Numbness and tingling of both feet Start: 03-04-2022 End: 03-04-2022 Emergency department patient visit [facility]Emergency Department Start: 12-24-2021 End: 12-24-2021 Patient encounter procedure Rick Gomez MD Work Phone: Ophthalmology Comment on above: Progressive peripher al pterygium of right eye (Primary Dx); Dry eye syndrome of both eyes Start: 12-03-2021 End: 12-03-2021 Emergency department patient visit [facility]-Emergency Department Start: 11-27-2021 End: 11-27-2021 Patient encounter procedure [facility]-Nuclear Medicine, [facility] Start: 11-11-2021 End: 11-11-2021 ambulatory [facility] Work Phone: Start: 11-11-2021 End: 11-11-2021 Patient encounter procedure [facility]-Ultrasound, [facility] Start: 10-25-2021 End: 10-25-2021 ambulatory [facility] Work Phone: Start: 10-25-2021 End: 10-25-2021 Patient encounter procedure [facility] Start: 10-17-2021 End: 10-17-2021 ambulatory [facility] Work Phone: Start: 10-17-2021 End: 10-17-2021 Patient encounter procedure [facility]-Laboratory Start: 09-13-2021 End: 09-13-2021 Patient encounter procedure [facility]-Laboratory Start: 2021 End: 2021 Patient encounter procedure [facility]Laboratory Start: 08-29-2021 End: 08-29-2021 Patient encounter procedure [facility]-Laboratory Start: 08-16-2021 Refill Lauren Esquivel APR N.[employer] Work Phone: Gastroenterology Comment on above: Refill Request Start: 06-03-2021 ambulatory Lauren Esquivel APR N.[employer] Work Phone: Gastroenterology Comment on above: celiac screening Start: 06-03-2021 Telephone encounter Lauren Esquivel 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 Phone: Gastroenterology Comment on above: Results Start: 05-31-2021 ambulatory Lauren Canalesos APR N.ELECTRIC MOTOR AND GENERATOR ASSEMBLER Work Phone: Gastroenterology Comment on above: Question regarding C BC + DIFF Start: 05-31-2021 Telephone encounter Lauren Canalesos 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 Phone: Gastroenterology Comment on above: Orders Start: 05-29-2021 Telephone encounter Lauren Esquivel 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 Phone: Gastroenterology Comment on above: Results Start: 05-23-2021 End: 05-23-2021 Subsequent hospital visit by physician Mckinley Mendez MD Work Phone: Ambulatory Surgery Comment on above: Heartburn [R12] Start: 05-21-2021 Telephone encounter Tiera Drummond-C Work Phone: [facility] Comment on above: Results Start: 05-21-2021 End: 05-21-2021 Subsequent hospital visit by physician Tim [facility] Work Phone: Radiology Comment on above: Finger pain, right [ M79.644] Start: 05-21-2021 End: 05-21-2021 Patient encounter procedure Tiera Waddell PA-C Work Phone: [facility] Comment on above: Finger pain, right ( Primary Dx) Procedures Date Procedure Procedure Detail Performing Clinician Start: 11-01-2024 MRI of lumbar spine [facility] Work Phone: Start: 10-31-2024 Plain X-ray of shoulder [facility] Work Phone: Start: 09-30-2024 X-ray of lumbosacral spine [facility] Work Phone: Start: 06-16-2024 Urnls dip stick/tablet reagent auto microscopy [facility] Work Phone: Start: 06-16-2024 Computed tomography of abdomen and pelvis with intravenous contrast [facility] Work Phone: Start: 06-16-2024 Estimated creatinine clearance [facility] Work Phone: Start: 11-25-2022 Radex spine cervical 2 or 3 views Reyes Roy MD Work Phone: Start: 06-10-2022 Ct cervical spine w/o contrast material Reyes Roy MD Work Phone: Start: 06-04-2022 Antibody screen TONYA ARRIAGA Comment on above: Order Comment: Specimen Type: BLOOD SPEC IMEN Ordering Facility: [facility] Address: [address] [place] [id number] Performed By: #### 5 [id number] #### [facility] [id number] [address] [place], [place] [id number] [place] [address] Start: 05-27-2022 Follow-up visit Follow Up YOVANY [...] Start: 05-23-2021 Esophagogastroduodenoscopy transoral diagnostic Lauren Esquivel 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 Phone: Start: 05-21-2021 Radex fingr minimum 2 views Tiera Waddell PA-C Work Phone: H/O: surgery Hx of neck surgery Plan of Treatment Date Care Activity Detail Author Start: 10-31-2024 [facility] Start: 09-30-2024 X-ray of lumbosacral spine L/S Spine Min 4 Views [facility] Start: 09-30-2024 XR Spine Lumbar and Sacrum GE 4 Views [facility] Start: 06-16-2024 [facility] Start: 06-16-2024 [facility] Start: 10-25-2023 Covid-19 Vaccine ( season) Covid-19 Vaccine ( season) [facility] Start: 10-25-2023 Influenza vaccination Influenza Vacc ine (#1) [facility] Start: 2023 Screening for malign ant neoplasm of breast Mammogram Screening [facility] Start: 05-20-2023 [facility] Start: 05-10-2023 [facility] Start: 02-23-2023 Depression Assessment Depression Ass essment [facility] Start: 11-21-2022 End: 09-20-2023 Radex spine cervical 2 or 3 views XR CERV GENERAL 2V AP/LAT Radiology Routine Cervical myelopathy (HCC) Expected: 11/21/2022 (Approximate), Expires: 09/20/2023 [facility] Work Phone: Comment on above: Expected: 11/21/2022 (Approximate), Expires: 09/20/2023 Start: 10-24-2022 Covid-19 Vaccine ( season) Covid-19 Vaccine ( season) [facility] Start: 10-24-2022 Influenza vaccination [facility] Start: 03-17-2022 End: 05-17-2022 Alanine aminotransferase [Enzymatic activity/volume] in Serum or Plasma [facility] Work Phone: Comment on above: Expected: 03/17/2022 , Expires: 05/17/2022 Start: 03-17-2022 End: 05-17-2022 C reactive protein [Mass/volume] in Serum or Plasma [facility] Work Phone: Comment on above: Expected: 03/17/2022 , Expires: 05/17/2022 Start: 03-17-2022 End: 05-17-2022 CREATININE BLD [facility] Work Phone: Comment on above: Expected: 03/17/2022 , Expires: 05/17/2022 Start: 03-17-2022 End: 05-17-2022 Cyclic citrullinated peptide IgG Ab [Units/volume] in Serum or Plasma [facility] Work Phone: Comment on above: Expected: 03/17/2022 , Expires: 05/17/2022 Start: 03-17-2022 End: 05-17-2022 Extractable nuclear Ab panel - Serum [facility] Work Phone: Comment on above: Expected: 03/17/2022 , Expires: 05/17/2022 Start: 03-17-2022 End: 05-17-2022 Nuclear Ab [Presence] in Serum by Immunoassay [facility] Work Phone: Comment on above: Expected: 03/17/2022 , Expires: 05/17/2022 Start: 03-17-2022 End: 05-17-2022 Rheumatoid factor [Units/volume] in Serum or Plasma [facility] Work Phone: Comment on above: Expected: 03/17/2022 , Expires: 05/17/2022 Start: 03-17-2022 End: 05-17-2022 Urea nitrogen [Mass/volume] in Serum or Plasma [facility] Work Phone: Comment on above: Expected: 03/17/2022 , Expires: 05/17/2022 Start: 02-23-2022 DEPRESSION ASSESSMENT DEPRESSION ASS ESSMENT [facility] Start: 10-24-2021 Influenza vaccination [facility] Start: 10-17-2021 Antinuclear antibodies jony ANTINUCLE AR ANTIBODIES [facility] Work Phone: Start: 10-17-2021 Collection venous bl ood venipuncture ROUTINE VENIPUNCTURE [facility] Work Phone: Start: 05-31-2021 End: 07-31-2021 Helicobacter pylori Ag [Presence] in Stool by Immunoassay [facility] Work Phone: Comment on above: Expected: 05/31/2021 , Expires: 07/31/2021 Start: 05-29-2021 End: 07-29-2021 CELIAC SCREEN WITH REFLEX CELIAC SCREEN WITH REFLEX Lab Routine Nausea Epigastric pain Expected: 05/29/2021, Expires: 07/29/2021 [facility] Work Phone: Comment on above: Expected: 05/29/2021 , Expires: 07/29/2021 Start: 02-23-2021 DEPRESSION ASSESSMENT DEPRESSION ASS ESSMENT [facility] Start: 10-24-2020 Influenza vaccination INFLUENZA (#1) [facility] Start: 09-04-2013 HPV TESTING HPV TESTING [facility] Start: 09-04-2013 Screening for malign ant neoplasm of cervix HPV Testing [facility] Start: 09-04-2004 PAP TESTING PAP TESTING [facility] Start: 09-04-2004 Screening for malign ant neoplasm of cervix [facility] Start: 09-04-2002 Hepatitis B Vaccine (1 of 3 - 19+ 3-dose series) Hepatitis B Vaccine (1 of 3 - 19+ 3-dose series) [facility] Start: 09-04-2002 Urine microalbumin profile [facility] Start: 09-04-2001 Depression Screening Depression Scre ening [facility] Start: 09-04-2001 HEPATITIS C SCREENING HEPATITIS C [facility] Start: 09-04-2001 Hepatitis C screening Hepatitis C [facility] Start: 09-04-2001 HIV SCREENING HIV SCREENING [facility] Start: 09-04-2001 HIV screening HIV Screening [facility] Start: 1995 Adult depression scr eening assessment DEPRESSION SCREENING [facility] Start: 09-04-1989 PNEUMOCOCCAL (1 - PCV) PNEUMOCOCCAL (1 - PCV) [facility] Start: 09-04-1989 Pneumococcal vaccination [facility] Start: 09-04-1988 COVID-19 VACCINE (#1) COVID-19 VACCI NE (#1) [facility] Start: 09-04-1988 COVID-19 VACCINE (1) COVID-19 VACCIN E (1) [facility] Start: 03-07-1984 COVID-19 VACCINE (#1) COVID-19 VACCI NE (#1) [facility] Start: 1983 HEPATITIS B (1 of 3 - 3-dose series) HEPATITIS B (1 of 3 - 3-dose series) [facility] Start: 1983 Hepatitis B Vaccine (1 of 3 - 3-dose series) Hepatitis B Vaccine (1 of 3 - 3-dose series) [facility] End: 06-05-2023 ECG COMPLETE ECG COMPLETE ECG Routine Pre-operative examination 1 Occurrences starting 06/04/2022 until 06/05/2023 [facility] Work Phone: Comment on above: 1 Occurrences starti ng 06/04/2022 until 06/05/2023 MR Lumbar spine [facility] End: 05-23-2023 Mri spinal canal cervical w/o contrast matrl MRI CERVICAL SPINE WO IVCON Radiology Routine Pain in both upper extremities Neck pain Imbalance Bladder dysfunction Impaired dexterity 1 Occurrences starting 04/23/2022 until 05/23/2023 [facility] Work Phone: Comment on above: 1 Occurrences starti ng 04/23/2022 until 05/23/2023 End: 05-23-2023 Mri spinal canal lumbar w/o contrast material MRI LUMBAR SPINE WO IVCON Radiology Routine Chronic bilateral low back pain with right-sided sciatica Bladder dysfunction 1 Occurrences starting 04/23/2022 until 05/23/2023 [facility] Work Phone: Comment on above: 1 Occurrences starti ng 04/23/2022 until 05/23/2023 Nuclear Ab [Presence ] in Serum [facility] Work Phone: Patient Education [facility] Work Phone: Patient referral [facility] Work Phone: PT PLAN OF CARE CERTIFICATION PT PLAN OF CARE CERTIFICATION Procedures Routine Chronic bilateral low back pain with right-sided sciatica Pain in both upper extremities Neck pain Imbalance Impaired dexterity Acute back pain with sciatica, right Cervicalgia Ordered: 04/29/2022 [facility] Work Phone: Comment on above: Ordered: 04/29/2022 SURGICAL PATHOLOGY [facility] Work Phone: Comment on above: Release Upon Orderin g for 1 Occurrences starting 05/23/2021, 1 completed [facility] Payers Date Payer Category Payer Unknown [id number] 2024 Unknown [id number] 2024 Self-pay [id number] 2018 Medicaid [facility] MEDICAID [id number] 2018-[facility] [phone] [address] [place] [address] Medicaid [id number] 2018 Medicaid [id number] 2016 Medicaid [id number] 2016 Unknown [id number] Unknown [id number] Unknown [id number] Unknown [id number] Unknown [id number] Unknown [id number] Unknown [id number] Unknown [id number] Unknown [id number] Unknown [id number] Social History Date Type Detail Facility Start: 10-05-2018 End: 10-31-2024 Tobacco smoking status NHIS Smokes tobacco daily [facility] Start: 10-05-2018 End: 12-24-2021 Tobacco use and exposure Smokeless tobacco non-user [facility] Start: 05-21-2021 End: 12-24-2021 Alcohol intake Current drinker of alcohol (finding) [facility] Start: 1985 Sex Assigned At Female [facility] Start: 05-11-2021 End: 05-23-2021 Exposure to SARS-CoV-2 (event) Not sure [facility] Work Phone: Start: 02-22-2021 End: 05-20-2023 Tobacco smoking status NHIS Unknown if ever smoked [facility] Start: 07-24-2019 Occasional [facility] Start: 01-06-2019 None [facility] Start: 07-24-2019 Spouse/ Signif icant Other [facility] Start: 06-27-2020 Cigarettes [facility] History of tobacco use Cigarette Smoker [facility] Start: 01-29-2020 End: 12-24-2021 Cigarettes smoked current (pack per day) - Reported 1 [facility] Start: 06-04-2022 Alcohol Comment occasionally [facility] Start: 01-29-2020 End: 09-17-2022 Tobacco use panel [facility] Adult Depression Screening Assessment 2 [facility] Start: 01-29-2021 Gender identity Identifies as female gender (finding) [facility] Start: 01-29-2021 Sexual orientation Bisexual (finding ) [facility] Medical Equipment Procedure Code Equipment Code Equipment Origin al Text Equipment Identifier Dates Grft I-Factor Pe Putty 1cc - [id number] Start: 07-04-2022 Bristol Plate, 1 Level, Sz 18mm [id number] Start: 07-04-2022 Screw Bn 4mm 14m m Bristol Spnl - [id number] Start: 07-04-2022 Spacer Avs 4d 7m m Spinal Bone Plug [id number] Start: 07-04-2022 Mental Status Date Assessment Result Facility 04-12-2023 Cognitive function Level Of Cons ciousness Awake;Alert;Appropriate [facility] Work Phone: Clinical Notes 05-21-2021 to 10-31-2024 Note Date & Type Note Facility 10-31-2024 Radiology Diagnostic study note [facility] Imaging Services [address] [place] [address] Shoulder min 2 Views MR#: [id number] Acct: [id number] Name: TAMMY ANNA Rep #: [id number] : 1985 F 39 From: Sheldon Dowd MD PCP: Care Physician,No Primary Status: REG ER Study:Shoulder min 2 Views Date of Exam: 10/31/24 Exam# [id number] Ordering Dr: Alex Diaz MD PROCEDURE: SHOULDER MIN 2 VIEWS 10/31/2024 REASON FOR EXAM: PAIN/INJURY TECHNIQUE: Procedure Code: TANA Modality: DX Procedure: SHOULDER MIN 2 VIEWS Laterality: COMPARISON: 03/28/2024. FINDINGS: Borderline widening of the left AC joint is unchanged from the previous study and could potentially represent a chronic injury to the left AC ligament. Please correlate clinically. Otherwise no significant bone or joint abnormality is identified. No acute fracture or dislocation. No focal soft tissue swelling. Reading Location: [id number] CC: Dr. 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: Signed [facility] 10-31-2024 Discharge summary [facility] 10-31-2024 Discharge summary Note Date/Time October 31, 2024 10:41pm [facility] Medical Records Department [address] [place] [address] Emergency Department Summary 10/31/24 MR#: [id number] Acct: [id number] Name: TAMMY ANNA Rep #:[id number] : 1985 39 From: Kamari Diaz MD PCP: Care Physician,No Primary Status :REG ER Location: ED HPI History of Present Illness Chief Complaint: Upper Extremity Injury Informant: patient Narrative Narrative: 39-year-old fpeh-btgg-loynjowy female states she injured her left shoulder todaylifting a heavy box. She states she started to lift it and felt a sudden twingeshe has been having pain ever since. She states she has been having some pain off and on her left shoulder for the last couple months due to a different injury where she fell on some steps and somehow caught herself with her left armbut she does not remember the details of the injury, whether she fell on the outstretched hand or against her shoulder, etc. She states she did not have it evaluated prior to today because it was not bothering her that much. PFSH PFS Medical History Costochondritis, acute GERD (gastroesophageal reflux disease) Chronic neck and back pain Shoulder pain Home Medications ?Medication ?Instructions ?Recorded ?Last Taken ?Type NK 10/31/24 Unknown History meloxicam 15 mg tablet 15 mg PO DAILY PRN pain #14 tabs 10/31/24 Unknown Rx Allergy/AdvReac Type Severity Reaction Status Date / Time Penicillins Allergy Anaphylaxis Verified 10/31/24 20:09 Family History Other Hypertension Surgical History S/P spinal surgery Hx of section Social History (Updated 09/30/24 @ 14:48 by Itzel Welch) Smoking Status: Current every day smoker tobacco type: cigarettes ROS ROS ED Constitutional Constitutional ED: Denies chills or fever(s) Musculoskeletal Musculoskeletal: Reports extremity pain; Denies neck pain Integumentary Denies Abrasions, rash or wounds Neurologic Neurologic: Denies paresthesias or weakness EXAM Physical Exam Const Vital Signs: 10/31/24 20:08 Temperature 98.6 F Temperature Source Oral Pulse Rate 76 Respiratory Rate 18 Blood Pressure 160/88 H Blood Pressure Mean 112 Pulse Ox 98 Oxygen Delivery Method Room Air Positive well nourished and well developed General Appearance ED: well developed and NAD Neck full ROM and supple Back/Spine normal ROM and normal to inspection Extremity Extremity Narrative: Left shoulder: Positive speed test. Positive Yergason. Negative drop test. Neurovascular intact distally. Full range of motion but limited in extremes dueto pain especially with internal rotation and forward flexion. There is mild acromioclavicular joint tenderness but no other areas of bony tenderness. She has no deformity. She can abduct fully without limited range. There is no overlying excessive warmth or swelling of the left shoulder. No significant subacromial tenderness. 2+ left radial pulse. Neuro oriented x3, no focal motor deficits and no sensory deficits noted Sensorium / Orientation: alert Psych mental status grossly normal and thought process normal Skin no wounds Rashes: no rashes MDM MDM MDM Narrative Medical decision making narrative: Patient is examining like an acute bicep strain. She does not have a bulge or asymmetry in the upper arm to suggest a rupture. Given her prior pain and injury, I think reasonable to obtain x-rays to evaluate for bony abnormality. Will 4 views of my interpretation including axillary view are all unremarkable. I do not see any Hill-Sachs lesion or Bankart on the glenoid. No dislocation. She is amenable to an injection of Toradol, prescribe nurse meloxicam and orthopedic follow-up if she still having major issues after a couple weeks Discharge Plan Triage Chief Complaint: Upper Extremity Injury ED Provider: Kamari Diaz Dx/Rx/DC Orders Clinical Impression: Strain of left biceps tendon Instructions: Biceps Tendonitis Proximal Prescriptions: New meloxicam 15 mg tablet 15 mg PO DAILY PRN (Reason: pain) Qty: 14 0RF No Action NK Primary Care Provider: Care Physician,No Primary Referrals: Jonas Pena MD [Med Staff - Active Staff] - (2-3 weeks if not improving) Print Language: Beninese Disposition Disposition: Home, Self Care What to do if you have Problems For any increased pain, shortness of breath, bleeding, nausea or vomiting, chestpain, or any unexpected problems, contact your Primary Care Provider. Call [facility] ([phone]) or report to the closest Emergency Room. Call 911 if necessary. 10/31/242240 <Electronically signed by Kamari Diaz MD> Cosigner Signature (if applicable): CC: No Primary Care Physician ~ Signed [facility] Work Phone: 1(625) 883-311708-08-2025 Evaluation note* Diagnosis Onset Date Resolution Status Admit Date Lumbar radiculopathy acute 2024 2:43pm [facility] Work Phone: 1(575) 974-654703-27-2024 Discharge summary Author Lance Betancourt [facility] May 20, 2023 2:57pm Note Date/Time May 20, 2023 2:5 5pm [facility] Medical Records Department [address] [place] [address] Emergency Department Summary 05/20/23 MR#: [id number] Acct: [id number] Name: TAMMY ANNA Rep #:[id number] : 1985 37 From: Lance Betancourt MD PCP: [place] [facility] atus:REG ER Location: ED HPI History [...] similar symptoms: Yes Recent Illness/Hospitalization: No PFSH PFSH Medical History Chronic neck and back pain [...] pain) Qty: 20 0RF Primary Care [facility]lo [facility] - 3-5 Days if [...] problems, contact your Primary Care Provider. Call [facility] ([phone]) or report to the closest Emergency Room. Call 911 if necessary. 05/20/23 [id number] <Electronically signed by Lance Betancourt MD> Cosigner Signature (if applicable): CC: [place] ~ Signed [facility] Work Phone: 1(334) 988-713603-16-2024 NoteHNO ID: [id number] Author: RENATO MONTANO MD Service: ? Author [...] penicillin. Encouraged appropriate amounts of as needed [id number] analgesia. Schedule follow-up with dentist. Renato Montano [facility]03-16-2024 History of Present illness Narrative* Renato Montano [...] penicillin. Encouraged appropriate amounts of as needed [id number] analgesia. Schedule follow-up with dentist. Renato Montano MD [facility] NoteHNO ID: [id number] Author: Reyes Roy MD Service: ? Author Type: Physician Type: Progress Notes Filed: 11/27/2022 9:00 AM Note Text: SPINE SURGERY ESTABLISHED VISIT This is a virtual visit using [employer] Video Visit. It required patient-provider interaction for the medical decision making as documented below. I have communicated my name and active licensure. The patient's identity and physical location were verified at the time of this visit. Either the patient or their legal agricultural sales representative has been informed of the risks [...] breath at times. She did see a med surg nurse, and they felt she may have fibromyalgia, [...] that she continue to follow with the med surg nurse for additional evaluation and treatments, as I [...] which included preparing to see the patient, [id number] patient care, completing clinical documentation, obtaining and/or reviewing separately obtained history, performing a medically appropriate examination, counseling and educating the patient/family/caregiver, communicating with other HCPs (not separately reported), and independently interpreting results (not separately reported).[facility]10-05-2023 History of Present illness Narrative* Reyes Roy MD - 11/27/2022 8:41 AM EDT SPINE SURGERY ESTABLISHED VISIT This is a virtual visit using MyChart Zoom Video Visit. It required patient- provider interaction for the medical decision making as documented below. I have communicated my name and active licensure. The patient's identity and physical location wereverified at the time of this visit. Either the patient or their legal agricultural sales representative has been informed of the risks [...] breath at times. She did see a med surg nurse, and they felt she may have fibromyalgia, [...] that she continue to follow with the med surg nurse for additional evaluation and treatments, as I [...] which included preparing to see the patient, [id number] patient care, completing clinical documentation, obtaining and/or reviewing separately obtained history, performing a medically appropriate examination, counseling and educating the pat ient/family/caregiver, communicating with other HCPs (not separately reported), and independently interpreting results (not separately reported). documented in this encounterSelect [facility]10-[facility]23 NoteHNO ID: [id number] Author: Madisyn Sen RT(R) Service: ? Author Type: Area Manager Type: Progress Notes Filed: 11/25/2022 11:47 AM [...] BY: RT Inge(R) November 25, 2022 11:32 [facility]07-26-2023 NoteHNO ID: [id number] Author: Rita Leung RT(R) Service: ? Author Type: Area Manager Type: Progress Notes Filed: 09/17/2022 2:28 PM [...] BY: RT Troy(R) September 17, 2022 2:27 [facility]07-26-2023 NoteHNO ID: [id number] Author: Divina Key MD Service: ? Author Type: Physician Type: Progress Notes Filed: 09/17/2022 3:16 PM Note Text: Divnia Key MD Tammy Anna September 16, 2022 [...] and inflammatory markers are negative except for PARALEGAL SUPERVISOR of 1.1. XR shows DJD and scoliosis. [...] 07/04/2022. 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 She [...] pain probably (more content not included)... [facility]07-26-2023 History of Present illness Narrative* Divina Key MD - 09/17/2022 2:00 PM EDT MD Tammy Cervantes September 16, 2022 Referring Provider: PCP: Tonya Arriaga, ELECTRIC MOTOR AND GENERATOR ASSEMBLER Chief Complaint: Patient presents with: Joint Pain [...] and inflammatory markers are negative except for PARALEGAL SUPERVISOR of 1.1. XR shows DJD and scoliosis. [...] 07/04/2022. 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 She [...] also does not reveal any positive serologies (PARALEGAL SUPERVISOR of 1.1 is essentially negative) or elevated [...] which included preparing to see the patient, rkle-ig-agoh patient care, completing clinical documentation, obtaining and/or [...] Yes Swollen Glands: Yes documented in this encounterSelect Medical Specialty [facility]06-30-2023 Miscellaneous Notes* Telephone Encounter - Alpa Casas [...] no limit if tolerating well. Alpa Saldana * Telephone Encounter - Cris Mcdonnell PSS - 08/22/2022 2:05 PM EDT Letter sent through [employer] * Telephone Encounter - Alpa Saldana - 08/22/2022 1:44 PM EDT NI PHONE Name of caller : Tammy Relationship to patient : Self Was permission obtained from patient ? Yes Patient identified by Name and Date of . ( Tammy Iwona Anna, 1985). Yes Reason for Call : Patient called asking for RTW letter, she saw Dr. Roy and he cleared her to be back to work on Friday 08/25, patient would like a letter so she can show it to her employer, RTW letter can be sent through my chart per patient's request. Alpa Saldana documented in this encounterSelect Medical Specialty [facility]06-29-2023 NoteHNO ID: [id number] Author: Reyes Roy MD Service: ? Author Type: Physician Type: Progress Notes Filed: 08/21/2022 12:35 PM Note Text: SPINE SURGERY FOLLOW UP This is an in-person visit. CC: Yovany Ahn SERVICE DATE: 08/21/22 SURGERY DATE: 07/04/2022 Tammy Anna is seen for 6 week post operative follow up s/p C5/6 ACDF. 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 Arm pain resolved Cramping thumb resolved Router Machine Operator improving Dexterity improving Not dropping things as [...] which included preparing to see the patient, gnhy-dh-erqk patient care, completing clinical documentation, obtaining and/or reviewing separately obtained history, performing a medically appropriate examination, counseling and educating the patient/family/caregiver, ordering medications, tests, or procedures, and communicating with other HCPs (not separately reported). [facility]06-29-2023 Instructions* Patient Instructions* Reyes Roy MD [...] questions. Reyes Roy MD documented in this encounterSelect Medical Specialty [facility]06-29-2023 History of Present illness Narrative* Reyes Roy MD - 08/21/2022 11:40 AM EDT SPINE SURGERY FOLLOW UP This is an in-person visit. CC: Yovany Ahn SERVICE DATE: 08/21/22 SURGERY DATE: 07/04/2022 Tammy Anna is seen for 6 week post operative follow up s/p C5/6 ACDF. 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 documented in this encounterSelect Medical Specialty [facility]05-31-2023 Miscellaneous Notes* PT DISCHARGE - Marcelina Alvarez, PT - 07/23/2022 10:18 AM EDT SITUATION: [...] summary for intervention/education details. documented in this encounterSelect Medical Specialty [facility]05-30-2023 Miscellaneous Notes* PT ROUTINE/REASSESSMENT/RECERT/CASE MGMT - Meeta Lety, SYSTEMS MGR - 07/22/2022 2:14 PM EDT SITUATION: only [...] summary for intervention/education details. documented in this encounterSelect Medical Specialty [facility]05-30-2023 Miscellaneous Notes* CARE COORDINATION - PAULETTE Rdz - 07/22/2022 1:09 PM EDT OT contacted Dr. Roy's office via [employer] on 07/22/22 for the following: Requested to [...] and Tub Transfers with no device with [place]. Plan of care, goals, and discharge reviewed and agreed upon with patient/caregiver. RECOMMENDATION: Instructions include: discharged from OT and is active with PT. Post dc recommendations: follow up with physician as scheduled 08/18/22. See intervention summary for intervention/education details. documented in this encounterSelect Medical Specialty [facility]05-30-2023 NoteHNO ID: [id number] Author: Carolina Hendricks RN Service: ? Author Type: Registered Nurse Type: Progress Notes Filed: 07/22/2022 10:10 AM Note Text: Patient is here today for a 2 week postop VV/ incision check. Surgery on 07/04/22, C5/[address] Roy. Patient is recovering well postoperatively. No neurological symptoms or complaints compared to preoperative baseline. Pt states her preop pain is resolving/resolved. BUE symptoms resolving. 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 Pt not requiring any pain [...] any questions or concerns. RUBENS Briceno, RNSt. [facility] Of [facility]05-30-2023 History of Present illness Narrative* Carolina Hendricks RN - 07/22/2022 10:02 AM EDT Patient is here today for a 2 week postop VV/ incision check. Surgery on 07/04/22, C5/[address] Roy. Patient is recovering well postoperatively. No neurological symptoms or complaints compared to preoperative baseline. Pt states her preop pain is resolving/resolved. BUE symptoms resolving. 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 Pt not requiring any pain [...] phone office with any questions or concerns. RAUL BricenoN, RN documented in this encounterSelect Medical Specialty [facility]05-15-2023 Miscellaneous Notes* PT SOC/MISSAEL/FOLLOW UP/OTHER - Troy Rodriguez PT - 07/07/2022 11:34 AM EDT SITUATION: [...] baths 3-4weeks postop. ASSESSMENT: [facility]. Reviewed and explained homecare [...] summary for intervention/education details.n/a documented in this encounterSelect Medical Specialty [facility]05-13-2023 NoteHNO ID: [id number] Author: Kelle Olivares RN Service: Care Management [...] ready to discharge home with home OT, [facility] accepting. F2F/home care orders in. Family to transport home. SIGNATURE: Kelle Marshall, RN PATIENT NAME: Tammy Anna DATE: July 05, 2022 TIME: 12:30 PM CONTACT #: [phone]05-13-2023 NoteHNO ID: [id number] Author: Valdemar Fajardo MD Service: General Internal [...] MD DATE: July 05, 2022 TIME: 12:00 [facility]05-13-2023 NoteHNO ID: [id number] Author: Wilmer Choi PA-C Service: Neurosurgery Author Type: Physician Welder Plastic Type: Progress Notes Filed: 07/05/2022 11:10 AM Note Text: Please page the Neurosurgery group pager [phone] for any questions or concerns Patient is [...] BICEPS TRICEPS DELTS Wrist Ext Wrist Flex Router Machine Operator R 5/5 5/5 5/5 5/5 5/5 5/5 [...] PA-C Please page the Neurosurgery group pager [phone] for any questions or concernsHouse Of [facility]05-13-2023 NoteHNO ID: [id number] Author: Interface Note Service: ? Author Type: ? Type: Progress Notes Filed: 07/05/2022 2:14 AM Note Text: Epic Scheduled Downtime: 07/05/2022 1:02:00 AM to 07/05/2022 2:01:00 [facility]05-12-2023 NoteHNO ID: [id number] Author: Monica Baker APRN.COUNTERSINKER BALANCE SCREW HOLE Service: Anesthesiology Author Type: Nurse Set Decorator Type: Anesthesia Procedure Notes Filed: 07/04/2022 8:09 AM Note Text: ANESTHESIOLOGY PROCEDURE NOTE PIV General Information Procedure Start Time/Medication Administration: 07/04/2022 7:45 AM Patient Location: OR Staffing COUNTERSINKER BALANCE SCREW HOLE: Monica Baker APRN.CRNA Preparation Sterility Preparation: hand hygiene performed prior to procedure, mask used Site Prep: alcohol Procedure Details Indication: need for IV access Needle Size/Type: 20 gauge angiocath Orientation: Right Location: Hand Imaging Guidance Used: No SIGNATURE: Monica Baker APRN.CRNA PATIENT NAME: Tammy Anna DATE: July 04, 2022 TIME: 8:08 AM CSN: [id number] NoteHNO ID: [id number] Author: Monica Baker APRN.CRNA Service: Anesthesiology Author Type: Nurse Set Decorator Type: Anesthesia Procedure Notes Filed: 07/04/2022 8:07 AM Note Text: ANESTHESIOLOGY PROCEDURE NOTE Airway General Information Procedure Start Time/Medication Administration: 07/04/2022 7:40 AM Patient location during procedure: OR Timeout Performed Pre-procedure: timeout performed Consent Obtained: Yes Patient identity confirmed: 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 Spoke with patient Tammy Anna for pre-op education. Reviewed education materials verballywith patient, including pre-operative skin preparation, medications, NPO, DOS expectations, visitorpolicy, inpatient expectations, wound care, post-operative pain management. ? Provided the following education materials to patient: [facility] Pre-/Post-Op Instruction packet, NPO/Skin Prep Instructions, Advance Directives info, Pain Management After Spine Surgery, Preparing for Post-Acute Care Instructions : Yes. ? Reviewed with patient to report to Pre/Post op services day of surgery: Yes. ? Reviewed with patient [facility] Surgery Pre-Op will call patient after 2 pm the day before to get surgery report time for day of surgery. Provided Pre-Op front end specialist phone number of [phone] for any questions: Yes. ? Patient made [...] 03, 2022 1:39 PM documented in this encounterSelect Medical Specialty [facility]05-04-2023 Miscellaneous Notes* Telephone Encounter - Cris CADENA - 06/26/2022 12:11 PM EDT Type of form: FMLA Form received via email When form is completed, email back to patient's employer Form has been forwarded to Physician Desk: Dr. Manuela CADENA documented in this encounterSelect Medical Specialty [facility]04-18-2023 NoteHNO ID: [id number] Author: RT Wilma(R) Service: ? Author Type: Area Manager Type: Progress Notes Filed: 06/10/2022 12:31 PM [...] BY: RT Tiarra(R) June 10, 2022 12:31 [facility]04-18-2023 History of Present illness Narrative* Aarti [...] IV DATA: Not applicable SIGNED BY: RT Tiarra(Bruno) June 10, 2022 12:31 PM documented in this encounterSelect Medical Specialty [facility]04-14-2023 Miscellaneous Notes* Telephone Encounter - Yovany Ahn PA-C - 06/06/2022 2:34 PM EDT Spoke with patient. She states her symptoms have been progressing. Today she has had two occasions with shocks through the body. Just recently she stood up from picking up her keys and felt sharp pain through her chest, the spine and into both arms. [place] like an electrical shock. The pain and [...] surgery 07/04. Advised to be seen at [facility] ED for intractable pain, increased weakness/dexterity/balance difficulty. Yovany Ahn PA-C * Telephone Encounter - Aarti Jules - 06/06/2022 2:22 PM EDT Patient called, stated at last appointment, Yovany had said if her pain persists to go to the ER,patient is wondering what the provider meant by that. She is experiencing pain and an electric feeling to where it goes down her back, and through both arms. Patient is requesting a call back. Pleaseadvise. documented in this encounterSelect Medical Specialty [facility]04-12-2023 History and physical note * Lianet Mas APRN.ELECTRIC MOTOR AND GENERATOR ASSEMBLER - 06/04/2022 3:18 PM EDT HISTORY AND [...] because of cervical myelopathy. 06/02/2022, Dr. Manuela ZIMMERMAN Tammy Anna is a 36 year old female presenting alone. CHIEF COMPLAINT: neck and arm pain HISTORY OF PRESENT ILLNESS Past 1.5 years, has had neck pain, arm pain, cramping in right thumb, cafeteria table attendant strength weaker. Difficulty with zippers, buttons, small [...] fevers. Neurological: No history of TIA's, stroke, SENIOR LOAN PROCESSOR tumor, impaired sensorium, hemiplegia, paraplegia orquadraplegia. No [...] > 1 time per night or hematuria. SNOW FENCE ERECTOR: Negative for abnormal vaginal bleeding, abnormal vaginal [...] 370 QTC Calculation (Bazett) 413 Calculated P Noel 15 Calculated R Noel 48 Calculated T Noel 14 Impression NORMAL SINUS RHYTHM NORMAL ECG No results found for this or any previous visit (from the past 08995 hour(s)). Assessment Patient has the following medical [...] large neck Non-male patient STOP-Bang Score: 0 [id number] Score: Age: <65 Sex: female CHF history: No Hypertension history: No Vascular disease history: No Diabetes history: No [id number] Score: 1 ARISCAT Score: Age: <=50 Preoperative [...] and consent discussed: yes. Patient / Responsible Republican agrees to proceed: yes Patient / Surrogate [...] 3:18 PM PAGER/CONTACT #: documented in this encounterSelect Medical Specialty [facility]04-12-2023 Instructions* Patient Instructions* Lianet Mas APRN.CNP - 06/04/2022 3:18 PM EDT PATIENT PREOPERATIVE INSTRUCTIONS Reyes Roy MD has scheduled you for your procedure at this surgery center: [facility]: [phone] -- [address] [address]. Please read below carefully for your personalized [...] Procedures: - YOU MUST HAVE A RESPONSIBLE PET CARE TECHNICIAN TAKE YOU HOME. A KENO WRITER OR DIRECTOR RETIREMENT CANNOT BE MADE A RESPONSIBLE PET CARE TECHNICIAN. - We recommend that a responsible person stays with you overnight to take care of you. - You cannot stay in a hotel alone after outpatient surgery. You will not be permitted to have yoursurgery, if you do not have someone to take care of you. Arrival Time for Surgery: -You will receive a call from [facility] the afternoon before surgery after 2:30 pm(or Thursday for Thursday surgery) for a scheduled arrival time. - If you have not heard by 4 pm, please contact [facility] at [phone]. Please be aware that emergency situations arise, which may delay or change your surgical time. If this happens, we will notify you as soon as possible and regret any inconvenience. If you already have an Advance Directive, please fax a copy to [phone] or email to for it to be [...] day. Lianet Mas APRN.YING documented in this encounterSelect Medical Specialty [facility]04-11-2023 Miscellaneous Notes* Telephone Encounter - Ashley Hernandez [...] was already scheduled. Number to return call [phone] Okay to leave a message ? Yes Thank you calling [facility] Neurological [place]. You will receive a return call within 48hours ( or 2 business days if close to the weekend). If you feel that this is an urgent issue and needs immediate attention, it is recommended that you contact your primary care provider office or proceed to your nearest Urgent Care Center of Emergency Room ED for evaluation/treatment. documented in this encounterSelect Medical Specialty [facility]04-11-2023 Miscellaneous Notes* Telephone Encounter - Carolina Hendricks RN - 06/03/2022 9:57 AM EDT NEUROSURGERY CARE COORDINATION [facility] SURGERY SCHEDULING ? Patient Tammy Anna accepts surgery date of 07/04/[address] Roy. Planned procedure is C5/6 ACDF. ? PAT will be completed at [facility]. ? Medications reviewed: Yes. Medications to be stopped prior to surgery: other : N/A. ? Additional pre-op clearances needed: per [facility] provider recommendations. ? Any implanted devices: No. ? Transplant History No ? Patient will require optimization lab work: per [facility] provider recommendations ? Questions answered. Patient verbalizes understanding via teach back. Carolina Soliz RN June 03, 2022 9:58 AM documented in this encounterSelect Medical Specialty [facility]04-10-2023 NoteHNO ID: [id number] Author: Reyes Roy MD Service: ? Author Type: Physician Type: Progress Notes Filed: 06/02/2022 3:46 PM Note Text: SPINE SURGERY OUTPATIENT CONSULT This is an in-person visit. SERVICE DATE: 06/02/2022 PCP: Tonya Arriaga CNP REFERRING PROVIDER: Yovany Ahn [address] [facility] [place] [address] Consult requested for an opinion regarding the [...] pain, arm pain, cramping in right thumb, cafeteria table attendant strength weaker. Difficulty with zippers, buttons, small [...] stenosis with resultan (more content not included)...[facility] 06-02-2022 History of Present illness Narrative* Reyes Roy MD - 06/02/2022 3:00 PM EDT SPINE SURGERY OUTPATIENT CONSULT This is an in-person visit. SERVICE DATE: 06/02/2022 PCP: Tonya Arriaga CNP REFERRING PROVIDER: Yovany Ahn [address] [facility] [place] [address] Consult requested for an opinion regarding the [...] pain, arm pain, cramping in right thumb, cafeteria table attendant strength weaker. Difficulty with zippers, buttons, small [...] the patient or the patient s personal agricultural sales representative. The patient has elected to schedule [...] which included preparing to see the patient, luhc-ue-hjna patient care, completing clinical documentation, obtaining and/or reviewing separately obtained history, performing a medically appropriate examination, counseling and educating the pat ient/family/caregiver, and communicating with other HCPs (not separately reported). documented in this encounterSelect Medical Specialty [facility]04-04-2023 NoteHNO ID: [id number] Author: Yovany Ahn PA-C Service: ? Author Type: Physician Welder Plastic Type: Progress Notes Filed: 05/27/2022 2:52 PM [...] arms to all the fingers (R>L). Decreased cafeteria table attendant strength. Still dropping things with the hands. [...] warning before this happens. She did not sweet pickled fruit maker the gabapentin. She was not sure about [...] the right thumb. She feels like her cafeteria table attendant strength in both hands is weaker than [...] 0.5 PPD. Working on quitting. 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 PAIN EVALUATION 05/25/2022202005/27/2022 1203 Pain Level: 9 9 Pain Location: Back Back Description: Aching;Burning;Cramping;Dull;Pulsating;Radiating;Sharp;Stiffness;Tightness; Tingling Stabbing;Dull;Achin (more content not included)...[facility]03-29-2023 NoteHNO ID: [id number] Author: RT Gurpreet(Bruno) Service: ? Author Type: Technologist Type: Progress [...] BY: RT Gurpreet(R) May 21, 2022 2:27 [facility]03-07-2023 History of Present illness Narrative* Dank [...] Planned: 16 Planned Treatment Interventions: Therapeutic exercise (20530), Neuromuscular re- education (60616), Manual therapy (27645), Therapeutic activities (63979), Self- [place] [facility] management (26549), Patient/Family/Caregiver Education, Body Mechanics Training, General Conditioning, Functional training PLAN FOR NEXT VISIT: Review, correct and progress HEP to tolerance. Continue with postural stretching and strengthening therex. Continue postural correction and truck body builder apprentice instruction including lifting technique at work. 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 documented in this encounterSelect Medical Specialty [facility]03-01-2023 History of Present illness Narrative* Yovany Ahn [...] the right thumb. She feels like her cafeteria table attendant strength in both hands is weaker than [...] 0.5 PPD. Working on quitting. 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 Interventions: Medications: ibuprofen PRN, tylenol PRN -Previously [...] which included preparing to see the patient, omqu-gv-gcml patient care, completing clinical documentation, obtaining and/or [...] 2022 TIME: 8:56 AM documented in this encounterSelect Medical Specialty [facility]01-23-2023 History of Present illness Narrative* Divina Key [...] old female presents for rheumat[facility] March [facility], [facility]22. Chronic diffuse joint [...] Return Visit: I will contact her through [employer] for results. We will make a plan after the resultsare available. I spent a total of 70 minutes on the date of the service which included preparing to see the patient, qouv-sr-rplj patient care, completing clinical documentation, obtaining and/or reviewing separately obtained history, performing a medically appropriate examination, counseling and educating the pat ient/family/caregiver, and ordering medications, tests, or procedures. Patompong Ungprasert, MD Referring Provider: PCP: Tonya Arriaga CNP documented in this encounterSelect Medical Specialty [facility]11-01-2022 Instructions* Patient Instructions* Rick Gomez MD - 12/24/2021 10:15 AM EDT Images from the original note were not included. documented in this encounterSelect Medical Specialty Hospital [facility]11-01-2022 History of Present illness Narrative* Rick Gomez [...] 24, 2021 10:14 AM documented in this encounterSelect Medical Specialty [facility]04-13-2022 Miscellaneous Notes* Telephone Encounter - Sangeeta Teague LPN - 06/05/2021 2:36 PM EDT Called client services and they will be running the celiac screening today. * Telephone Encounter - Sangeeta Teague LPN - 06/03/2021 2:37 PM EDT Patient is asking what IGA Blood is testing for. Not exactly sure how to answer this. documented [facility] Miscellaneous Notes* Telephone Encounter - Dior Hendricks [...] results. Dior Hendricks RN documented in this [facility] Miscellaneous Notes* Telephone Encounter - Lauren Esquivel APRN.CNP - 05/31/2021 4:02 PM EDT Done. Lauren Esquivel APRN.YING * Telephone Encounter - Sangeeta Teague LPN - 05/31/2021 9:14 AM EDT A new order for H-Pylori stool needs placed. Previous one has . documented in this [facility] Miscellaneous Notes* Telephone Encounter - Iwona Fonseca RN - 05/29/2021 4:35 PM EDT Patient returned call and given provider's message below with verbalized understanding. * Telephone Encounter - Sangeeta Teague LPN - 05/29/2021 3:31 PM EDT LEFT MESSAGE FOR PATIENT TO CALL OFFICE. * Telephone Encounter - Lauren Esquivel APRN.YING - 05/29/2021 11:39 AM EDT Please call patient - I have placed the order for celiac testing based on her results from her EGD. Thanks Lauren Esquivel APRN.YING Biopsies from small bowel/duodenum showed mildly increased lymphocytes. Recommend checking celiac serology if not already done. Otherwise biopsies are unremarkable. Follow up with Ms Esquivel in GI clinic. Mckinley Mendez MD documented in this encounter[facility] Nurse Note* Monica Puentes RN - 05/23/2021 11:52 AM EDT 100mL of LR given in recovery. Iv was intact, no redness. Hob up. Passing air. States ready to go. Geophysical Prospecting Permit Agent called - here. Assisted pt w/dressing. All belongings given. Dr was already at the bedside. No questions. * Monica Puentes RN - 05/23/2021 11:[address] at the bedside. No questions. [employer] Prospecting Permit Agent called - here. * Monica Puentes RN - 05/23/2021 11:33 AM EDT Encouraged to pass air documented in this encounter[facility] History and physical note * Mckinley Mendez [...] None Mckinley Mendez MD documented in this encounter[facility] History of Present illness Narrative* Tiera Waddell PA-C - 05/21/2021 3:01 PM EDT This note was created using [employer]. Subjective Tammy Avila is a 35 year [...] RIGHT Tiera Waddell PA-C documented in this encounter[facility]-2022 Miscellaneous Notes* Telephone Encounter - Katelyn Corcoran [...] if not getting better. documented in this encounterSelect [facility]hillDischar summary Author Papo Peterson [facility] April 12, 2023 12:52pm Note Date/Time April 12, 2023 11:50am [facility] Medical Records Department [address] [place] [address] Emergency Department Summary 04/12/23 MR#: [id number] Acct: [id number] Name: TAMMY ANNA Rep #:[id number] : 1985 37 From: Papo Newton PCP: [facility] atus:REG ER Location: ED HPI History of Present Illness Chief Complaint: Numb/Ting PFSH PFSH Medical History Chronic neck and back pain [...] Ox 100 Oxygen Delivery Method Room Air MDM MDM MDM Narrative Medical decision making narrative: HISTORY OF [...] Dispo: Discharge This note was generated with [employer] dictation software. It may contain incorrectwords, spelling, [...] DAILY Qty: 21 0RF Primary Care Provider: [facility] Referrals: Jonas Pena MD [[facility] Staff - Active Staff] - Activity Restrictions/Additional [...] your Primary Care Provider. Call [facility] ([phone]) or report to the closest Emergency Room. Call 911 if necessary. 04/12/23 1252 <Electronically signed by Papo Peterson DO> Cosigner Signature (if applicable): CC: [place] ~ Signed [facility] Work Phone: Evaluation note* Diagnosis Finger pain, right- Primary Pain in limb documented in this encounter [facility] note* Diagnosis Heartburn History of Helicobacter pylori infection Personal history of other infectious and parasitic disease Epigastric pain Abdominal pain, epigastric Nausea Nausea alone Dark stools Nonspecific abnormal finding in stool contents Loose stools Abnormal feces documented in this encounter [facility] note* Diagnosis Nausea- Primary Nausea alone Epigastric pain Abdominal pain, epigastric [facility] Diagnosis H. pylori infection- Primary Helicobacter pylori (H. pylori) documented in this encounter [facility] noteNo assessment information availableWKettering Health [facility] Work Phone: Evaluation note* Diagnosis Progressive peripheral pterygium of right eye- Primary Peripheral pterygium, progressive Dry eye syndrome of both eyes [facility] Diagnosis Multiple joint pain- Primary Pain in joint, multiple sites Chronic midline low back pain with bilateral sciatica Neck pain Cervicalgia Positive JONY (antinuclear antibody) Other and unspecified nonspecific immunological findings Numbness and tingling of both feet documented in this encounter [facility]* Diagnosis Chronic bilateral low back pain with right-sided sciatica- Primary Pain in both upper extremities Neck pain Cervicalgia Imbalance Abnormality of gait Bladder dysfunction Other functional disorder of bladder Impaired dexterity [facility] Diagnosis Chronic bilateral low back pain with right-sided sciatica Pain in both upper extremities Neck pain Cervicalgia Imbalance Abnormality of gait Impaired dexterity Acute back pain with sciatica, right Cervicalgia [facility]* Diagnosis Cervical myelopathy (HCC)- Primary Cervical spondylosis with myelopathy Cervical stenosis of spine Spinal stenosis in cervical region [facility] Diagnosis Pre-operative examination- Primary Preoperative [...] spondylosis with myelopathy documented in this encounter [facility]* Diagnosis Presence of surgical incision- Primary documented in this encounter [facility]* Diagnosis Cervical myelopathy (HCC)- Primary Cervical spondylosis with myelopathy documented in this [facility]* Diagnosis Fibromyalgia- Primary Mylagia and myositis, unspecified Cervical myelopathy (HCC) Cervical spondylosis with myelopathy [facility] Diagnosis Cervical stenosis of spine- Primary Spinal stenosis in cervical region documented in this encounter [facility]* Diagnosis Cervical myelopathy (HCC) Cervical spondylosis with myelopathy documented in this encounter [facility]* Diagnosis Cervical myelopathy (HCC) Cervical spondylosis with myelopathy documented in this encounter [facility]* Diagnosis Toothache- Primary Unspecified disorder of the teeth and supporting structures documented in this encounter [facility]* Diagnosis Multiple joint pain Pain in [...] 30.9 in adult documented in this encounter [facility]* Diagnosis Finger pain, right Pain in limb [facility] Additional Instructions Ice your foot. Try to stay off of it. Take 3 yeii-hdn-rnsnfds ibuprofen (a total of 600 mg) every 6 hours as needed for pain. You may alternate this with Tylenol.[facility] Work Phone: Hospital Discharge instructions Additional Instructions [...] orthopedic surgery for further outpatient evaluation and management.[facility] Work Phone: Hospital Discharge instructions Additional Instructions I would like for you to take a total of 10 days worth of clindamycin. Therefore I have prescribed an additional 5 days to what you are already taking. I have also wrote for some nausea medication. Please also take the anti-inflammatory I have prescribed and the pain medicine as needed.[facility] Work Phone: Hospital Discharge instructions Additional Instructions Percocet for pain. Motrin for pain and inflammation. Follow-up with your primary care physician if not improving because if this is not improving you may need an MRI of your lower back to rule out degenerative disc disease. Your exam and history however go along with sciatica.[facility] Work Phone: Hospital Discharge instructionsAmbulatory Orders* Pain Management Location: None [facility] Work Phone: Patient's home Plan of care [...] to call 911. documented in this encounter [facility] Plan [facility] care note* Visit Details Visit Type -SYSTEMS MGR ROUTINE Discipline -Physical Therapy Problems Problem Description [...] to call 911. documented in this encounter [facility]* Visit Details [...] DVT and PE documented in this encounter [facility]* Visit Details [...] include: verbal cues. documented in this encounter [facility] (narrative)* Diagnostic Procedure Only (Urgent) - Closed Specialty Diagnoses / Procedures Referred By Amos t Referred To Contact XR IMAGING Diagnoses Finger pain, right Procedures XR DIGIT GENERAL 3V FRONTAL/LAT/OBL RIGHT RADEX FINGR MINIMUM 2 VIEWS Tiera Waddell PA-C [address] [place] [address] Xr Imaging Referral ID Status Reason Start Date Expiration Date V isits Requested Visits Authorized [id number] Closed Auto-Generate d Referral 05/21/2021 06/20/2022 1 1 [facility] (narrative)* Outpatient Procedure (Routine) - Closed Specialty Diagnoses / Procedures [facility] To [facility] Diagnoses Heartburn History of Helicobacter pylori infection Epigastric pain Nausea Dark stools Loose stools Procedures EGD DIAGNOSTIC ESOPHAGOGASTRODUODENOSCO PY TRANSORAL DIAGNOSTIC Lauren Esquivel APRN.CNP [address] [place] [address] [facility] [place] [address] [place] [address] Referral ID Status Reason Start Date Expiration Date V isits Requested Visits Authorized [id number] Closed Auto-Generate d Referral 04/10/2021 04/10/2022 1 1 [facility] for [facility] (narrative)* Diagnostic Procedure Only (Routine) - Closed Specialty Diagnoses / Procedures [facility] Referred To Contact XR IMAGING Diagnoses Multiple joint pain Chronic midline low back pain with bilateral sciatica Neck pain Procedures XR CERV OTHER 4V AP/LAT/OBL RADEX SPINE CERVICAL 4 OR 5 VIEWS Divina Key MD [address] [place] [address] Xr Imaging Referral ID Status Reason Start Date Expiration Date V isits Requested Visits Authorized [id number] Closed Auto-Generate d Referral 03/17/2022 04/16/2023 1 1 * Diagnostic Procedure Only (Routine) - Closed Specialty Diagnoses / Procedures Referred By Contac t Referred To Contact XR IMAGING Diagnoses Multiple joint pain Chronic midline low back pain with bilateral sciatica Neck pain Procedures XR LUMBAR GENERAL 3V AP/LAT/L5-S1 RADEX SPINE LUMBOSACRAL 2/3 VIEWS Divina Key MD [address] [place] [address] Xr Imaging Referral ID Status Reason Start Date Expiration Date V isits Requested Visits Authorized [id number] Closed Auto-Generate d Referral 03/17/2022 04/16/2023 1 1 [facility] for [facility] (narrative)* Outpatient Procedure (Routine) - Closed Specialty Diagnoses / Procedures Referred By Contac t Referred To Contact [facility] Diagnoses Pre-operative examination Procedures ECG COMPLETE ECG ROUTINE ECG W/LEAST 12 LDS W/I&R Lianet Mas AIRCONDITIONING PLANT OPERATOR.ELECTRIC MOTOR AND GENERATOR ASSEMBLER [address] [place] [address] [facility][Note 3] [facility] [place] [address] [place] [address] Referral ID Status Reason Start Date Expiration Date V isits Requested Visits Authorized [id number] Closed Auto-Generate d Referral 06/04/2022 06/04/2023 1 1 [facility] (narrative)* Diagnostic Procedure Only (Routine) - Pending Review Specialty Diagnoses / Procedures Referred By Contac t Referred To Contact XR IMAGING Diagnoses Cervical myelopathy (HCC) Procedures XR CERV GENERAL 2V AP/LAT RADEX SPINE CERVICAL 2 OR 3 VIEWS Reyes Roy MD [address] [place] [address] Xr Imaging Referral ID Status Reason Start Date Expiration Date Visits Requested Visits Authorized [id number] Pending Review Auto-Generat ed Referral 11/21/2022 09/20/2023 1 1 [facility] for referral (narrative)* Diagnostic Procedure Only (Routine) - Closed Specialty Diagnoses / Procedures Referred By Contac t Referred To Contact XR IMAGING Diagnoses Fibromyalgia Cervical myelopathy (HCC) Procedures XR CERV GENERAL 2V AP/LAT RADEX SPINE CERVICAL 2 OR 3 VIEWS Divina Key MD [address] [place] [address] Xr Imaging Referral ID Status Reason Start Date Expiration Date V isits Requested Visits Authorized [id number] Closed Auto-Generate d Referral 09/17/2022 10/17/2023 1 1 [facility] for referral (narrative)* Diagnostic Procedure Only (Routine) - Closed Specialty Diagnoses / Procedures Referred By Contac t Referred To Contact XR IMAGING Diagnoses Cervical myelopathy (HCC) Procedures XR CERV GENERAL 2V AP/LAT RADEX SPINE CERVICAL 2 OR 3 VIEWS Reyes Roy MD [address] [place] [address] Xr Imaging [place] [address] Referral ID Status Reason Start Date Expiration Date V isits Requested Visits Authorized [id number] Closed Auto-Generate d Referral 11/21/2022 09/20/2023 1 1 [facility] for referral (narrative)* Diagnostic Procedure Only (Routine) - Closed Specialty Diagnoses / Procedures Referred By Contac t Referred To Contact XR IMAGING Diagnoses Multiple joint pain Chronic midline low back pain with bilateral sciatica Neck pain Procedures XR CERV OTHER 4V AP/LAT/OBL RADEX SPINE CERVICAL 4 OR 5 VIEWS Divina Key MD [address] [place] [address] [place] [address] Referral ID Status Reason Start Date Expiration Date V isits Requested Visits Authorized [id number] Closed Auto-Generate d Referral 03/17/2022 04/16/2023 1 1 * Diagnostic Procedure Only (Routine) - Closed Specialty Diagnoses / Procedures Referred By Contac t Referred To Contact XR IMAGING Diagnoses Multiple joint pain Chronic midline low back pain with bilateral sciatica Neck pain Procedures XR LUMBAR GENERAL 3V AP/LAT/L5-S1 RADEX SPINE LUMBOSACRAL 2/3 VIEWS Divina Key MD [address] [place] [address] [place] [address] Referral ID Status Reason Start Date Expiration Date V isits Requested Visits Authorized [id number] Closed Auto-Generate d Referral 03/17/2022 04/16/2023 1 1 [facility] (narrative)* Diagnostic Procedure Only (Urgent) - Closed Specialty Diagnoses / Procedures [facility] Referred To Contact XR IMAGING Diagnoses Finger pain, right Procedures XR DIGIT GENERAL 3V FRONTAL/LAT/OBL RIGHT RADEX FINGR MINIMUM 2 VIEWS Tiera Waddell PA-C [address] [place] [address] [place] [address] Referral ID Status Reason Start Date Expiration Date V isits Requested Visits Authorized [id number] Closed Auto-Generate d Referral 05/21/2021 06/20/2022 1 1 [facility] (narrative)No reason for referral information availableLucile Salter [facility] Work Phone: Reason for visit Narrative* Outpatient Procedure (Routine) - Closed Specialty Diagnoses / Procedures [facility] Referred To Contact [facility] Diagnoses Heartburn History of Helicobacter pylori infection Epigastric pain Nausea Dark stools Loose stools Procedures COLONOSCOPY DIAGNOSTIC COLONOSCOPY FLX DX W/COLLJ SPEC WHEN PFRMD Lauren Esquivel, AIRCONDITIONING PLANT OPERATOR.ELECTRIC MOTOR AND GENERATOR ASSEMBLER [address] [place] [address] [facility] [address] [place] [address] Referral ID Status Reason Start Date Expiration Date V isits Requested Visits Authorized [id number] Closed Auto-Generate d Referral 04/10/2021 04/10/2022 1 1 [facility] visit Narrative* Diagnostic Procedure Only (Routine) - Closed Specialty Diagnoses / Procedures Referred By Contac t Referred To Contact XR IMAGING Diagnoses Cervical myelopathy (HCC) Procedures XR CERV GENERAL 2V AP/LAT RADEX SPINE CERVICAL 2 OR 3 VIEWS Reyes Roy MD [address] [place] [address] [place] [address] Referral ID Status Reason Start Date Expiration Date V isits Requested Visits Authorized [id number] Closed Auto-Generate d Referral 11/21/2022 09/20/2023 1 1 [facility] visit Narrative* Diagnostic Procedure Only (Urgent) - Closed Specialty Diagnoses / Procedures Referred By Contac t Referred To Contact XR IMAGING Diagnoses Finger pain, right Procedures XR DIGIT GENERAL 3V FRONTAL/LAT/OBL RIGHT RADEX FINGR MINIMUM 2 VIEWS Tiera Waddell, PALoreC [address] [place] [address] [place] [address] Referral ID Status Reason Start Date Expiration Date V isits Requested Visits Authorized [id number] Closed Auto-Generate d Referral 05/21/2021 06/20/2022 1 1 [facility] Summary Purpose Family History Relationship Condition Age at Onset Recorded Date/T lester Not Specified Hypertension Unknown Advance Directives Documents on File Type Date Recorded Patient Director Social Expl anation Advance Directive(s) 05/23/2021 9:59 AM Documents on File Type Date Recorded Patient Director Social Expl anation Advance Directive(s) 05/23/2021 9:59 AM Advance Directive Response Recorded Date/ Time Living Will No February 22, 021 3:36pm Power of Loft Worker [employer]ile Driving No February 22, 2021 3:36pm Advance Directive Response Recorded Date/ Time Living Will No December 03 10:41am Power of Loft Worker [employer] No December 03, 2021 10:41am Advance Directive Response Recorded Date/ Time Living Will No March 04 12:51pm Power of Loft Worker [employer] No March 04, 2022 12:51pm Latest Code [...] April 12, 2 024 12:51pm Power of Loft Worker [employer] No April 12, 2023 12:51pm Date Activated Date Inactivated Comments 07/07/2022 12:52 PM Advance Directive Response Recorded Date/ Time Living Will No May 10, 2023 9:40am Power of Loft Worker [employer] No May 09 9:40am Advance Directive Response Recorded Date/ Time Living Will No May 20, 2023 2:54pm Power of Loft Worker [employer] Driving No May 19 2:54pm Date Activated Date Inactivated Comments 07/07/2022 12:52 PM Advance Directive Response Recorded Date/ Time Do you have a Healthcare Power of Loft Worker [employer] Driving? No June 16, 2024 6:26am Advance Directive Response Recorded Date/ Time Do you have a Healthcare Power of Loft Worker [employer] Driving? No October 31, 2024 10:00pm Chief Complaint and Reason for Visit Chief [...] spine September 30, 2024 2:4 3pm RM September 30, 2024 3:0 2pm Chief Complaint Admit Date lumbar spine September 30, 2024 2:4 3pm RM 3 September 30, 2024 3:0 2pm UPPER EXTR October 31, 2024 8:07pm Reason for Visit Admit Date Lumbar radiculopathy September 30, 2024 2: 43pm Chief Complaint Admit Date lumbar spine September 30, 2024 2:4 3pm RM 3 September 30, 2024 3:0 2pm UPPER EXTR October 31, 2024 8:07pm LUMBAR RAD November 01, 2024 8:37am Medications Administered Section Active Administered Medications - [...] 1000, Until Thu12/24/21 at 215, Administer for pneumo tonometry, tonopen tonometry, or [...] Until Thu12/24/21 at 215, Administer for dilation Given 12/24/2021 9:48 AM EDT 1 Drop Reason for Referral Specialty Diagnoses / Procedures Referred By Amos t Referred To Contact MR IMAGING Diagnoses Chronic bilateral low back pain with right-sided sciatica Bladder dysfunction Procedures MRI LUMBAR SPINE WO IVCON MRI SPINAL CANAL LUMBAR W/O CONTRAST MATERIAL Yovany Ahn PA-C [address] [place] [address] Mr Imaging Referral ID Status Reason Start Date Expiration Date Visits Requested Visits Authorized [id number] Pending Review Auto-Generat ed Referral 04/23/2022 05/23/2023 1 1 Specialty Diagnoses / Procedures Referred By Amos t Referred To Contact MR IMAGING Diagnoses Pain in both upper extremities Neck pain Imbalance Bladder dysfunction Impaired dexterity Procedures MRI CERVICAL SPINE WO IVCON MRI SPINAL CANAL CERVICAL W/O CONTRAST MATRL Yovany Ahn PA-C [address] [place] [id number] Mr Imaging Referral ID Status Reason Start Date Expiration Date Visits Requested Visits Authorized [id number] Pending Review Auto-Generat ed Referral 04/23/2022 05/23/2023 1 1 Specialty Diagnoses / Procedures Referred By Contac t Referred To Contact [facility] Diagnoses Chronic bilateral low back pain with right-sided sciatica Pain in both upper extremities Neck pain Imbalance Impaired dexterity Procedures CONSULT TO PHYSICAL THERAPY PHYSICAL THERAPY EVALUATION HIGH COMPLEX 45 MINS Yovany Ahn PA-C [address] [place] [address] [facility] [address] [address] Referral ID Status Reason Start Date Expiration Date Visits Requested Visits Authorized [id number] Authorized Auto-Generat ed Referral 04/23/2022 07/23/2022 1 1 Specialty Diagnoses / Procedures Referred By Contac t Referred To Contact [facility] Diagnoses Chronic bilateral low back pain with right-sided sciatica Pain in both upper extremities Neck pain Imbalance Impaired dexterity Acute back pain with sciatica, right Cervicalgia Procedures PT REHAB FOLLOW UP ORDER THERAPEUTIC EXERCISES RE, EA 15 MIN. Pt [facility] [address] [place] [address] [facility] [address] [address] Referral ID Status Reason Start Date Expiration Date Visits Requested Visits Authorized [id number] Pending Review PCP Requested Referral Auto-Generate d Referral 04/29/2022 07/28/2022 1 1 Specialty Diagnoses / Procedures Referred By Contac t Referred To Contact CT IMAGING Diagnoses Cervical myelopathy (HCC) Procedures CT CERVICAL SPINE WO IVCON CT CERVICAL SPINE W/O CONTRAST MATERIAL Reyes Roy MD [address] [place] [address] [place] [address] Referral ID Status Reason Start Date Expiration Date V isits Requested Visits Authorized [id number] Closed Auto-Generate d Referral 06/04/2022 08/03/2022 1 1 Additional Source Comments INFORMATION SOURCE (unrecogn ized section and content) DATE CREATED AUTHOR 01/30/2021 [facility] DATE CREATED AUTHOR AUTHOR'S ORGANIZ ATION 07/06/2022 [facility] DATE CREATED AUTHOR AUTHOR'S ORGANIZ ATION 05/10/2023 [facility] DATE CREATED AUTHOR AUTHOR'S ORGANIZ ATION 11/26/2024 [facility] Source Comments (unrecognize d section and content) In the event this informatio n is protected by the Federal Confidentiality of Alcohol and Drug Abuse Patient Records regulations: The Federal rules restrict any use of the information to criminally investigate or prosecute any alcohol or drug abuse patient.[facility] the event this information is protected by the Federal Confidentiality of Alcohol and Drug Abuse Patient Records regulations: The Federal rules restrict any use of the information to criminally investigate or prosecute any alcohol or drug abuse patient.[facility] the event this information is protected by the Federal Confidentiality of Alcohol and Drug Abuse Patient Records regulations: The Federal rules restrict any use of the information to criminally investigate or prosecute any alcohol or drug abuse patient.[facility]In the event this information is protected by the Federal Confidentiality of Alcohol and Drug Abuse Patient Records regulations: The Federal rules restrict any use of the information to criminally investigate or prosecute any alcohol or drug abuse patient.[facility]hillIn the event this information is protected by the Federal Confidentiality of Alcohol and Drug Abuse Patient Records regulations: The Federal rules restrict any use of the information to criminally investigate or prosecute any alcohol or drug abuse patient.[facility]hillIn the event this information is protected by the Federal Confidentiality of Alcohol and Drug Abuse Patient Records regulations: The Federal rules restrict any use of the information to criminally investigate or prosecute any alcohol or drug abuse patient.[facility]hillIn the event this information is protected by the Federal Confidentiality of Alcohol and Drug Abuse Patient Records regulations: The Federal rules restrict any use of the information to criminally investigate or prosecute any alcohol or drug abuse patient.[facility]hillIn the event this information is protected by the Federal Confidentiality of Alcohol and Drug Abuse Patient Records regulations: The Federal rules restrict any use of the information to criminally investigate or prosecute any alcohol or drug abuse patient.[facility]hillIn the event this information is protected by the Federal Confidentiality of Alcohol and Drug Abuse Patient Records regulations: The Federal rules restrict any use of the information to criminally investigate or prosecute any alcohol or drug abuse patient.[facility]hillIn the event this information is protected by the Federal Confidentiality of Alcohol and Drug Abuse Patient Records regulations: The Federal rules restrict any use of the information to criminally investigate or prosecute any alcohol or drug abuse patient.[facility]hillIn the event this information is protected by the Federal Confidentiality of Alcohol and Drug Abuse Patient Records regulations: The Federal rules restrict any use of the information to criminally investigate or prosecute any alcohol or drug abuse patient.[facility]hillIn the event this information is protected by the Federal Confidentiality of Alcohol and Drug Abuse Patient Records regulations: The Federal rules restrict any use of the information to criminally investigate or prosecute any alcohol or drug abuse patient.[facility]hillIn the event this information is protected by the Federal Confidentiality of Alcohol and Drug Abuse Patient Records regulations: The Federal rules restrict any use of the information to criminally investigate or prosecute any alcohol or drug abuse patient.[facility]hillIn the event this information is protected by the Federal Confidentiality of Alcohol and Drug Abuse Patient Records regulations: The Federal rules restrict any use of the information to criminally investigate or prosecute any alcohol or drug abuse patient.[facility]hillIn the event this information is protected by the Federal Confidentiality of Alcohol and Drug Abuse Patient Records regulations: The Federal rules restrict any use of the information to criminally investigate or prosecute any alcohol or drug abuse patient.[facility] ClinicIn the event this information is protected by the Federal Confidentiality of Alcohol and Drug Abuse Patient Records regulations: The Federal rules restrict any use of the information to criminally investigate or prosecute any alcohol or drug abuse patient.[facility]hillIn the event this information is protected by the Federal Confidentiality of Alcohol and Drug Abuse Patient Records regulations: The Federal rules restrict any use of the information to criminally investigate or prosecute any alcohol or drug abuse patient.[facility]hillIn the event this information is protected by the Federal Confidentiality of Alcohol and Drug Abuse Patient Records regulations: The Federal rules restrict any use of the information to criminally investigate or prosecute any alcohol or drug abuse patient.[facility]hillIn the event this information is protected by the Federal Confidentiality of Alcohol and Drug Abuse Patient Records regulations: The Federal rules restrict any use of the information to criminally investigate or prosecute any alcohol or drug abuse patient.[facility]hillIn the event this information is protected by the Federal Confidentiality of Alcohol and Drug Abuse Patient Records regulations: The Federal rules restrict any use of the information to criminally investigate or prosecute any alcohol or drug abuse patient.[facility]hillIn the event this information is protected by the Federal Confidentiality of Alcohol and Drug Abuse Patient Records regulations: The Federal rules restrict any use of the information to criminally investigate or prosecute any alcohol or drug abuse patient.[facility]hillIn the event this information is protected by the Federal Confidentiality of Alcohol and Drug Abuse Patient Records regulations: The Federal rules restrict any use of the information to criminally investigate or prosecute any alcohol or drug abuse patient.[facility]hillIn the event this information is protected by the Federal Confidentiality of Alcohol and Drug Abuse Patient Records regulations: The Federal rules restrict any use of the information to criminally investigate or prosecute any alcohol or drug abuse patient.[facility]hillIn the event this information is protected by the Federal Confidentiality of Alcohol and Drug Abuse Patient Records regulations: The Federal rules restrict any use of the information to criminally investigate or prosecute any alcohol or drug abuse patient.[facility]hillIn the event this information is protected by the Federal Confidentiality of Alcohol and Drug Abuse Patient Records regulations: The Federal rules restrict any use of the information to criminally investigate or prosecute any alcohol or drug abuse patient.[facility]hillIn the event this information is protected by the Federal Confidentiality of Alcohol and Drug Abuse Patient Records regulations: The Federal rules restrict any use of the information to criminally investigate or prosecute any alcohol or drug abuse patient.[facility]hillIn the event this information is protected by the Federal Confidentiality of Alcohol and Drug Abuse Patient Records regulations: The Federal rules restrict any use of the information to criminally investigate or prosecute any alcohol or drug abuse patient.[facility]hillIn the event this information is protected by the Federal Confidentiality of Alcohol and Drug Abuse Patient Records regulations: The Federal rules restrict any use of the information to criminally investigate or prosecute any alcohol or drug abuse patient.[facility]hillIn the event this information is protected by the Federal Confidentiality of Alcohol and Drug Abuse Patient Records regulations: The Federal rules restrict any use of the information to criminally investigate or prosecute any alcohol or drug abuse patient.[facility]hillIn the event this information is protected by the Federal Confidentiality of Alcohol and Drug Abuse Patient Records regulations: The Federal rules restrict any use of the information to criminally investigate or prosecute any alcohol or drug abuse patient.[facility]hillIn the event this information is protected by the Federal Confidentiality of Alcohol and Drug Abuse Patient Records regulations: The Federal rules restrict any use of the information to criminally investigate or prosecute any alcohol or drug abuse patient.[facility]hillIn the event this information is protected by the Federal Confidentiality of Alcohol and Drug Abuse Patient Records regulations: The Federal rules restrict any use of the information to criminally investigate or prosecute any alcohol or drug abuse patient.[facility]hillIn the event this information is protected by the Federal Confidentiality of Alcohol and Drug Abuse Patient Records regulations: The Federal rules restrict any use of the information to criminally investigate or prosecute any alcohol or drug abuse patient.[facility]hillIn the event this information is protected by the Federal Confidentiality of Alcohol and Drug Abuse Patient Records regulations: The Federal rules restrict any use of the information to criminally investigate or prosecute any alcohol or drug abuse patient.[facility]hillIn the event this information is protected by the Federal Confidentiality of Alcohol and Drug Abuse Patient Records regulations: The Federal rules restrict any use of the information to criminally investigate or prosecute any alcohol or drug abuse patient.[facility] Reason for Visit (unrecogniz ed section and [...] HIGH COMPLEX 45 MINS Yovany Ahn PA-C [address] [place] [address] [facility] [address] [place] [address] Referral ID Status Reason Start Date Expiration Date V isits Requested Visits Authorized [id number] Closed Auto-Generate d Referral 04/23/2022 07/23/2022 1 1 Reason Comments New Patient Reason Comments surgery scheduling Reason Comments Appointment Reason Comments Consult Reason Comments Patient Update Reason Comments Forms Reason Comments preop info Specialty Diagnoses / Procedures Referred By Contac t Referred To Contact [facility] [address] [place] [id number] Referral ID Status Reason Start Date Expiration Date Visits Re quested Visits Authorized [id number] 1 1 Reason Comments Post Op Reason Comments Patient Question Reason Comments Joint Pain Reason Comments Established Patient Reason Comments Radiology CT Specialty Diagnoses / Procedures Referred By Contac t Referred To Contact CT IMAGING Diagnoses Cervical myelopathy (HCC) Procedures CT CERVICAL SPINE WO IVCON CT CERVICAL SPINE W/O CONTRAST MATERIAL Reyes Roy MD [address] [place] [address] Ct Imaging [facility] Referral ID Status Reason Start Date Expiration Date V isits Requested Visits Authorized [id number] Closed Auto-Generate d Referral 06/04/2022 08/03/2022 1 1 Reason Comments Pain, Sinus Sinus pain and press ure-possibly a tooth ache x 4 days Reason Comments Radio Gen [facility] Radiology Service Pr ogress NotePATIENT NAME: Tammy AnnaMRN: [id number] OF SERVICE: March 17, 2022TIME: 1:53 PMPATIENT [...] 4 OR 5 VIEWS Divina Key MD [address], [place] [address] [place] [address] Referral ID Status Reason Start Date Expiration Date V isits Requested Visits Authorized [id number] Closed Auto-Generate d Referral 03/17/2022 04/16/2023 1 1 Care Teams (unrecognized sec tion and content) Front Office Secretary Relationship Specialty Start Date End Date Lauren Daniel PCP - [facility] 10/05/18 Dipak Henao MD [address] [facility] [place] [address] [facility] 03/09/20 Front Office Secretary Relationship Specialty Start Date End Date Lauren Daniel PCP - [facility] 10/05/18 Dipak Henao MD [address] [facility] [address] [facility] 03/09/20 Front Office Secretary Relationship Specialty Start Date End Date Lauren Daniel PCP - [facility] 10/05/18 Dipak Henao MD [address] [place] [address] [place] [address] [facility] 03/09/20 Front Office Secretary Relationship Specialty Start Date End Date ReneLauren quintana PCP - [facility] Family Practice 10/05/18 Dipak Henao MD [address] [place] [address] [place] [address] [facility] 03/09/20 Front Office Secretary Relationship Specialty Start Date End Date Lauren Daniel PCP - [facility] Family [facility] 10/05/18 Dipak Henao MD [address] [place] [address] [place] [address] [facility] 03/09/20 Front Office Secretary Relationship Specialty Start Date End Date Lauren Daniel PCP - [facility] Family [facility] 10/05/18 Dipak Henao MD [address] [place] [address] [place] [address] [facility] 03/09/20 Front Office Secretary Relationship Specialty Start Date End Date Lauren Daniel PCP - [facility] Family Practice 10/05/18 Dipak Henao MD [address] [place] [address] [place] [address] [facility] 03/09/20 Front Office Secretary Relationship Specialty Start Date End Date Lauren Daniel PCP - General Family Practice 10/05/18 Dipak Henao MD [address] [place] [address] [facility] 03/09/20 Front Office Secretary Relationship Specialty Start Date End Date Lauren Daniel PCP - General Family Practice 10/05/18 Dipak Henao MD [address] [place] [address] [facility] 03/09/20 Front Office Secretary Relationship Specialty Start Date End Date Tonya Arriaga, ELECTRIC MOTOR AND GENERATOR ASSEMBLER [address] [place] [address] PCP - General Internal Medicine 12/12/21 Lauren Daniel Family Medicine 12/12/21 Dipak Henao MD [address] [place] [address] [facility] 03/09/20 Carter Pierce MD [address] [facility] [place] [address] Referring Family Medicine 12/07/21 Melania Petty NP Family Medicine 12/12/21 Front Office Secretary Relationship Specialty Start Date End Date Tonya Arriaga, ELECTRIC MOTOR AND GENERATOR ASSEMBLER [address] [place] [address] PCP - General Internal Medicine 12/12/21 Lauren Daniel [address] [place] [address] Family Medicine 12/12/21 Dipak Henao MD [address] [place] [address] [facility] 03/09/20 Carter Pierce(Historical)MD [address] [place] [address] Referring Family Medicine 12/07/21 Melania Petty NP [address] [place] [address] Family Medicine 12/12/21 Front Office Secretary Relationship Specialty Start Date End Date Tonya Arriaga, ELECTRIC MOTOR AND GENERATOR ASSEMBLER [address] [place] [address] PCP - General Internal Medicine 12/12/21 Lauren Daniel [address] [place] [address] Family Medicine 12/12/21 Dipak Henao MD [address] [place] [address] [facility] 03/09/20 Carter Pierce(Historical), [address] [place] [address] Referring Family Medicine 12/07/21 Melania Petty NP [address] [place] [address] Family Medicine 12/12/21 Front Office Secretary Relationship Specialty Start Date End Date Tonya Arriaga, ELECTRIC MOTOR AND GENERATOR ASSEMBLER [address] [place] [address] PCP - General Internal Medicine 12/12/21 Lauren Daniel [address] [place] [address] Family Medicine 12/12/21 Dipak Henao MD [address] [place] [address] [facility] 03/09/20 Carter Pierce(Historical)MD [address] [place] [address] Referring Family Medicine 12/07/21 Melania Petty NP [address] [place] [address] Family Medicine 12/12/21 Front Office Secretary Relationship Specialty Start Date End Date Tonya Arriaga ELECTRIC MOTOR AND GENERATOR ASSEMBLER [address] [place] [address] PCP - General Internal Medicine 12/12/21 Lauren Daniel [address] [facility] [place] [address] Family Medicine 12/12/21 Dipak Henao MD [address] [place] [address] [facility] Family Medicine 03/09/20 Carter Pierce(Historical), [address] [place] [address] Referring Family Medicine 12/07/21 Melania Petty NP [address] [place] [address] Family Medicine 12/12/21 Front Office Secretary Relationship Specialty Start Date End Date Tonya Arriaga ELECTRIC MOTOR AND GENERATOR ASSEMBLER [address] [facility] [place] [address] PCP - General Internal Medicine 12/12/21 Lauren Daniel [address] [facility] [place] [place] [address] Family Medicine 12/12/21 Dipak Henao MD [address] [place] [address] [facility] Family Medicine 03/09/20 Caretr Pierce(Historical), [address] [place] [address] Referring Family Medicine 12/07/21 Melania Petty NP [address] [place] [address] Family Medicine 12/12/21 Front Office Secretary Relationship Specialty Start Date End Date Tonya Arriaga ELECTRIC MOTOR AND GENERATOR ASSEMBLER [address] [place] [address] PCP - General Internal Medicine 12/12/21 Lauren Daniel [address] [place] [address] Family Medicine 12/12/21 Dipak Henao MD [address] [place] [address] [facility] Family Medicine 03/09/20 Carter Pierce(Historical), [address] [place] [address] Referring Family Medicine 12/07/21 Melania Petty NP [address] [place] [address] Family Medicine 12/12/21 Front Office Secretary Relationship Specialty Start Date End Date Tonya Arriaga ELECTRIC MOTOR AND GENERATOR ASSEMBLER [address] [place] [address] PCP - General Internal Medicine 12/12/21 Lauren Daniel [address] [place] [address] Family Medicine 12/12/21 Dipak Henao MD [address] [place] [address] [facility] Family Medicine 03/09/20 Carter Pierce(Historical), [address] [place] [address] Referring Family Medicine 12/07/21 Melania Petty NP [address] [place] [address] Family Medicine 12/12/21 Front Office Secretary Relationship Specialty Start Date End Date Tonya Arriaga ELECTRIC MOTOR AND GENERATOR ASSEMBLER [address] [place] [address] PCP - General Internal Medicine 12/12/21 Lauren Daniel [address] [place] [address] Family Medicine 12/12/21 Dipak Henao MD [address] [place] [address] [facility] Family [facility] 03/09/20 Carter Pierce(Historical)MD [address] [place] [address] Referring Family Medicine 12/07/21 Melania Petty NP [address] [place] [address] Family Medicine 12/12/21 Front Office Secretary Relationship Specialty Start Date End Date Tonya Arriaga, ELECTRIC MOTOR AND GENERATOR ASSEMBLER [address] [facility] [place] [address] PCP - General Internal Medicine 12/12/21 Lauren Daniel [address] [facility] [place] [address] Family Medicine 12/12/21 Dipak Henao MD [address] [place] [address] [facility] 03/09/20 Carter Pierce(Historical), [address] [place] [address] Referring Family Medicine 12/07/21 Melania Petty NP [address] [place] [address] Family Medicine 12/12/21 Reyes Roy MD [address] [place] [address] Home Care Provider Neurosurgery 07/05/22 Wilmer Choi PA-C [address] [place] [address] Referring Neurosurgery 07/05/22 Amarilis Molina, PT [address] [place] [address] Radio Antenna Installer Post Acute Care 07/05/22 Front Office Secretary Relationship Specialty Start Date End Date Tonya Arriaga ELECTRIC MOTOR AND GENERATOR ASSEMBLER [address] [place] [address] PCP - General Internal Medicine 12/12/21 Lauren Daniel [address] [facility] [place] [address] Family Medicine 12/12/21 Dipak Henao MD [address] [place] [address] [facility] 03/09/20 Carter Pierce(Historical)MD [address] [place] [address] Referring Family Medicine 12/07/21 Melania Petty NP [address] [place] [address] Family Medicine 12/12/21 Reyes Roy MD [address] [place], [place] 1334424 Home Care Provider Neurosurgery 07/05/22 Wilmer Choi PA-C [address] [place], [place] 5642824 Referring Neurosurgery 07/05/22 Amarilis Molina, PT [address] [place], [place] [id number] Radio Antenna Installer Post Acute Care 07/05/22 Front Office Secretary Relationship Specialty Start Date End Date Tonya Arriaga CNP [address] [place] [address] PCP - General Internal Medicine 12/12/21 Lauren Daniel [address] [place] [place] [address] Family Medicine 12/12/21 Dipak Henao MD [address] [place] [address] [facility] Family Medicine 03/09/20 Carter Pierce(Historical), [address] [place] [address] Referring Family Medicine 12/07/21 Melania Petty NP [address] [place] [address] Family Medicine 12/12/21 Reyes Roy MD [address] [place] [address] Home Care Provider Neurosurgery 07/05/22 Wilmer Choi PA-C [address] [place], [place] 2577224 Referring Neurosurgery 07/05/22 Amarilis Molina, PT [address] [place], [place] [id number] Radio Antenna Installer Post Acute Care 07/05/22 Front Office Secretary Relationship Specialty Start Date End Date Tonya Arriaga, ELECTRIC MOTOR AND GENERATOR ASSEMBLER [address] [place] [address] PCP - General Internal Medicine 12/12/21 Lauren Daniel [address] [place] [address] Family Medicine 12/12/21 Dipak Henao MD [address] [place] [address] [facility] Family [facility] 03/09/20 Carter Pierce(Historical), [address] [place] [address] Referring Family Medicine 12/07/21 Melania Petty NP [address] [place] [address] Family Medicine 12/12/21 Reyes Roy MD [address] [place] [address] Home Care Provider Neurosurgery 07/05/22 Wilmer Choi PA-C [address] [place] [address] Referring Neurosurgery 07/05/22 Amarilis Molina, PT [address] [place], [place] [id number] Radio Antenna Installer Post Acute Care 07/05/22 Front Office Secretary Relationship Specialty Start Date End Date Tonya Arriaga, ELECTRIC MOTOR AND GENERATOR ASSEMBLER [address] [place] [address] PCP - General Internal Medicine 12/12/21 Lauren Daniel [address] [place] [address] Family Medicine 12/12/21 Dipak Henao MD [address] [place] [address] [facility] 03/09/20 Carter Pierce(Historical)MD [address] [place] [address] Referring Family Medicine 12/07/21 Melania Petty, JAYME [address] [place] [address] Family Medicine 12/12/21 Reyes Roy MD [address] [place] [address] Home Care Provider Neurosurgery 07/05/22 Wilmer Choi PA-C [address] [place] [address] Referring Neurosurgery 07/05/22 Amarilis Molina, PT [address] [place] [address] Radio Antenna Installer Post Acute Care 07/05/22 Front Office Secretary Relationship Specialty Start Date End Date Tonya Arriaga ELECTRIC MOTOR AND GENERATOR ASSEMBLER [address] [place] [address] PCP - General Internal Medicine 12/12/21 Lauren Daniel [address] [place] [address] Family Medicine 12/12/21 Dipak Henao MD [address] [place] [address] [facility] 03/09/20 Carter Pierce(Historical)MD [address] [place] [address] Referring Family Medicine 12/07/21 Melania Petty NP [address] [place] [address] Family Medicine 12/12/21 Reyes Roy MD [address] [place], [place] 5064924 Home Care Provider Neurosurgery 07/05/22 Wilmer Choi PA-C [address] [place], [place] 0934424 Referring Neurosurgery 07/05/22 Amarilis Molina, PT [address] [place], [place] [id number] Radio Antenna Installer Post Acute Care 07/05/22 Front Office Secretary Relationship Specialty Start Date End Date Tonya Arriaga CNP [address] [place] [address] PCP - General Internal Medicine 12/12/21 Lauren Daniel [address] [place] [address] Family Medicine 12/12/21 Dipak Henao MD [address] [place] [address] [facility] 03/09/20 Carter Pierce(Historical)MD [address] [place] [address] Referring Family Medicine 12/07/21 Melania Petty NP [address] [place] [address] Family Medicine 12/12/21 Reyes Roy MD [address] [place] [place], [place] [id number] Home Care Provider Neurosurgery 07/05/22 Wilmer Choi PA-C [address] [place] [address] [id number] Referring Neurosurgery 07/05/22 Amarilis Molina, PT [address] [place], [place] [id number] Radio Antenna Installer Post Acute Care 07/05/22 Front Office Secretary Relationship Specialty Start Date End Date Tonya Arriaga, ELECTRIC MOTOR AND GENERATOR ASSEMBLER [address] [place] [address] PCP - General Internal Medicine 12/12/21 Lauren Daniel [address] [place] [address] Family Medicine 12/12/21 Dipak Henao MD [address] [place] [address] [facility] Family Medicine 03/09/20 Carter Pierce(Historical), [address] [place] [address] Referring Family Medicine 12/07/21 Melania Petty, JAYME [address] [place] [address] Family Medicine 12/12/21 Reyes Roy MD [address] [place] [id number] Home Care Provider Neurosurgery 07/05/22 Wilmer Choi PA-C [address] [place] [address] [phone] Referring Neurosurgery 07/05/22 Amarilis Molina, PT [address] [place], [place] [phone] Radio Antenna Installer Post Acute Care 07/05/22 Front Office Secretary Relationship Specialty Start Date End Date Tonya Arriaga CNP [address] [place] [address] PCP - General Internal Medicine 12/12/21 Lauren Daniel [address] [place] [address] Family Medicine 12/12/21 Dipak Henao MD [address] [place] [address] [facility] Family Medicine 03/09/20 Carter Pierce(Historical)MD [address] [place] [address] Referring Family Medicine 12/07/21 Melania Petty NP [address] [place] [address] Family Medicine 12/12/21 Reyes Roy MD [address] [place], [place] [phone] Home Care Provider Neurosurgery 07/05/22 Wilmer Choi PA-C [address] [place], [place] [phone] Referring Neurosurgery 07/05/22 Amarilis Molina, PT [address] [facility] [address] Radio Antenna Installer Post Acute Care 07/05/22 Front Office Secretary Relationship Specialty Start Date End Date Tonya Arriaga CNP [address] [facility] [place] [address] PCP - General Internal Medicine 12/12/21 Lauren Daniel [address] [facility] [place] [address] Family Medicine 12/12/21 Dipak Henao MD [address] [place] [address] [facility]NA Family Medicine 03/09/20 Carter Pierce(Historical)MD [address] [place] [address] Referring Family Medicine 12/07/21 Melania Petty NP [address] [place] [address] [facility] Medicine 12/12/21 Team Status: Active Member Role Status Dates Dr. Ginacarlo Olivas Family Provider Active [facility] Primary Care Provider A ctive Team Status: Inactive Member Role Status Dates [facility] Primary Care Provider A ctive Dr. Papo Peterson , DO Emergency Provider Active Front Office Secretary Relationship Specialty Start Date End Date Tonya Arriaga CNP [address] [facility] [place] [address] PCP - General Internal Medicine 12/12/21 Lauren Daniel [address] [facility] [place] [address] Family Medicine 12/12/21 Dipak Henao MD [address] [facility], [place] 2[address] [facility] Family Medicine 03/09/20 Carter Pierce(Historical)MD [address] [place] [address] Referring Family Medicine 12/07/21 Melania Petty NP [address] [place] [id number] Family Medicine 12/12/21 Reyes Roy MD [address] [place] [address] [phone] Home Care Provider Neurosurgery 07/05/22 Wilmer Choi PA-C [address] [place] [address] [phone] Referring Neurosurgery 07/05/22 Amrailis Molina, PT [address] [place] [address] Radio Antenna Installer Post Acute Care 07/05/22 Team Status: Inactive Member Role Status Dates [facility] Primary Care Provider A ctive Dr. Papo Peterson DO Attending Provider, Emergency P rovider Active Team Status: Inactive Member Role Status Dates [facility] Primary Care Provider A ctive Dr. Kota Saha DO Emergency Provider Active Team Status: Inactive Member Role Status Dates [facility] Primary Care Provider A ctive Dr. Lance Betancourt MD Emergency Provider Active Team Status: Inactive Member Role Status Dates [facility] Primary Care Provider A ctive Dr. Kota Saha DO Attending Provider, Emergency P rovider Active Front Office Secretary Relationship Specialty Start Date End Date Lauren Daniel, YING PCP - General Family Medicine 10/05/18 12/11/21 Dipak Henao MD [address] [place] [address] (work) [facility] Family Medicine 03/09/20 Team Status: Active Member Role/Relationship Status Dates [facility] Primary Care Provider A ctive Team Status: Inactive Member Role/Relationship Status Dates [facility] Primary Care Provider A ctive Start: June 16, 2024 End: June 16, 2024 Dr. Yung Wright DO Attending Provider Active Start: June 16, 2024 End: June 16, 2024 Dr. Yung Wright DO Emergency Provider Active Start: June 16, 2024 End: June 16, 2024 Team Status: Active Member Role/Relationship Status Dates [facility] Primary Care Provider A ctive Start: September 30, 2024 [facility] Referring Provider Acti ve Start: September 30, 2024 SEBASTIAN Luis Attending Provider Active Star t: September 30, 2024 Team Status: Inactive Member Role/Relationship Status Dates [facility] Primary Care Provider A ctive Start: September 30, 2024 End: September 30, 2024 Dr. Abel Atkins MD Attending Provider Active S tart: September 30, 2024 End: September 30, 2024 Team Status: Inactive Member Role/Relationship Status Dates [facility] Primary Care Provider A ctive Start: September 30, 2024 End: September 30, 2024 [facility] Referring Provider Acti ve Start: September 30, 2024 End: September 30, 2024 SEBASTIAN Luis Attending Provider Active Star t: September 30, 2024 End: September 30, 2024 Team Status: Active Member Role/Relationship Status Dates No Primary Care Physician Primary Care Provider Active Team Status: Inactive Member Role/Relationship Status Dates [facility] Primary Care Provider A ctive Start: September 30, 2024 End: September 30, 2024 [facility] Referring Provider Acti ve Start: September 30, 2024 End: September 30, 2024 SEBASTIAN Luis Attending Provider Active Star t: September 30, 2024 End: September 30, 2024 Team Status: Inactive Member Role/Relationship Status Dates [facility] Primary Care Provider A ctive Start: September 30, 2024 End: September 30, 2024 Dr. Abel Atkins MD Attending Provider Active S tart: September 30, 2024 End: September 30, 2024 Team Status: Inactive Member Role/Relationship Status Dates No Primary Care Physician Primary Care Provider Active Start: October 31, 2024 End: October 31, 2024 Dr. Kamari Diaz MD Emergency Provider Active Start: October 31, 2024 End: October 31, 2024 Team Status: Active Member Role/Relationship Status Dates No Primary Care Physician Primary care physician Activ e Team Status: Inactive Member Role/Relationship Status Dates [facility] Primary care physician Active Start: September 30, 2024 End: September 30, 2024 [facility] Referring Provider Acti ve Start: September 30, 2024 End: September 30, 2024 SEBASTIAN Luis Attending physician Active Sta rt: September 30, 2024 End: September 30, 2024 Team Status: Inactive Member Role/Relationship Status Dates [facility] Primary care physician Active Start: September 30, 2024 End: September 30, 2024 Dr. Abel Atkins MD Attending physician Active Start: September 30, 2024 End: September 30, 2024 Team Status: Inactive Member Role/Relationship Status Dates No Primary Care Physician Primary care physician Activ e Start: October 31, 2024 End: October 31, 2024 Dr. Kamari Diaz MD Attending physician Active Start: October 31, 2024 End: October 31, 2024 Dr. Kamari Diaz MD Emergency Depart ment Physician Active Start: October 31, 2024 End: October 31, 2024 Team Status: Inactive Member Role/Relationship Status Dates SEBASTIAN Luis Attending physician Active Sta rt: November 01, 2024 End: November 01, 2024 SEBASTIAN Luis Referring Provider Active Star t: November 01, 2024 End: November 01, 2024 No Primary Care Physician Primary care physician Activ e Start: November 01, 2024 End: November 01, 2024 Goals (unrecognized section and content) Goals [...] BE BASED ON THE PRIMARY CLINICAL RECORDS. [employer] [facility]. provides no warranty or guarantee of the accuracy or completeness of information in this document.
--- NOTE | 2024-12-07 20:24 | EDS_ITS ---
HPI History of Present Illness HPI Narrative: Patient presents with left foot injury that occurred 2 days ago. Patient states she was standing and her foot inverted. Patient describes her pain as pressure and burning. Patient states it feels like someone is stepping on my foot with hard shoes. Patient denies any paresthesias or weakness. Patient states nothing makes her pain worse and nothing makes it better. Patient denies any ankle pain. Patient denies any other injuries. Chief Complaint: Lower Extremity Injury Informant: patient Occured/Mechanism Comment: Inversion injury Onset/Context/Timing Onset: Days (2) Context: Sudden Onset Timing: Continuous Quality of Pain: Burning and - (Pressure) Location: Left foot Worsened by: Nothing Relieved by: Nothing Associated Symptoms Associated Symptoms: Negative for Parasthesia, Weakness or Loss of Funtion PFSH PFSH Medical History Costochondritis, acute GERD (gastroesophageal reflux disease) Chronic neck and back pain Shoulder pain Home Medications ?Medication ?Instructions ?Recorded ?Last Taken ?Type NK 10/31/24 Unknown History meloxicam 15 mg tablet 15 mg PO DAILY PRN pain #14 tabs 10/31/24 Unknown Rx Allergy/AdvReac Type Severity Reaction Status Date / Time Penicillins Allergy Anaphylaxis Verified 12/07/24 18:15 Family History Other Hypertension Surgical History S/P spinal surgery Hx of section Social History Smoking Status: Current every day smoker tobacco type: cigarettes ROS ROS ED Constitutional Constitutional ED: Denies chills or fever(s) Eyes Eyes: Denies blurry vision or change in vision ENT ENT ED: Denies rhinorrhea or sore throat Cardiovascular Cardiovascular: Denies chest pain or palpitations Respiratory/Chest Respiratory/Chest: Denies cough or dyspnea Gastrointestinal Gastrointestinal: Denies nausea or vomiting Genitourinary Genitourinary ED: Denies dysuria or hematuria Musculoskeletal Musculoskeletal: Denies back pain or neck pain Integumentary Denies abscess or rash Neurologic Neurologic: Denies headache(s) or weakness Allergic/Immunologic Allergic/Immunologic ED: Denies mouth swelling or urticaria EXAM Physical Exam Const Vital Signs: 12/07/24 18:15 Temperature 97 F L Temperature Source Temporal Pulse Rate 106 H Respiratory Rate 24 H Blood Pressure 131/97 H Blood Pressure Mean 108 Pulse Ox 97 Oxygen Delivery Method Room Air Positive well nourished and well developed General Appearance ED: well developed and NAD HEENT Reports moist mucous membranes Neck full ROM Extremity Extremity Narrative: There is tenderness with mild edema over the dorsal aspect of the left midfoot. There is no deformity noted. Range of motion was limited in all motions of the left foot secondary to pain. There is no tenderness over the medial or lateral malleolus. There is no tenderness over the proximal fibula. Pedal pulses are equal bilaterally. Capillary refill was less than 2 seconds in all digits. Sensation was intact to light touch in all digits. Strength is 5/5 bilaterally in the lower extremities. Neuro oriented x3, CN's II-XII intact bilaterally, moves all extremities and no sensory deficits noted Sensorium / Orientation: alert Motor Exam: strength 5/5 throughout Psych mental status grossly normal MDM MDM MDM Narrative Medical decision making narrative: Differential diagnosis includes sprain, fracture, and contusion. X-rays of the left foot will be obtained to assess for fracture. Radiography Diagnostic Testing: Clinical Impression(s) from Imaging Studies Foot X-Ray 12/07/24 18:20 IMPRESSION: No acute fracture or dislocation. Reading Location: [facility] X-rays of the left foot were obtained. There are 3 views. On my independent interpretation, there is no acute fracture. There is no dislocation. There is now soft tissue swelling. Radiologist also interpreted the x-rays and agrees. Treatment and Re-Evaluation Narrative: Patient was advised of her findings. Patient was instructed to ice and elevate the left foot. Patient was given a walking boot. Patient was instructed to follow-up with her primary care physician in 5 to 7 days. Patient was instructed to take Tylenol or ibuprofen as needed for pain. Patient understood and was agreeable with the plan. All questions were answered. Discharge Plan Triage Chief Complaint: Lower Extremity Injury ED Provider: Carter Jimenez Dx/Rx/DC Orders Clinical Impression: Sprain of left foot, Elevated blood pressure reading Instructions: ED Foot Sprain Prescriptions: No Action NK meloxicam 15 mg tablet 15 mg PO DAILY PRN (Reason: pain) Qty: 14 0RF Primary Care Provider: Care Physician,No Primary Referrals: Guillermo Farley MD [Med Staff - Active Staff, Family Practice] - 5-7 Days Care Physician,No Primary [Primary Care Provider, Medical] Print Language: Swedish Disposition Disposition: Home, Self Care
[2024-12-07 20:37] VITALS: BP 132/89; PULSE 80; RESP 24; TEMP 36.1; O2SAT 97
== END 2024-12-07 20:46 | disposition home or self-care (01) ==
PROVIDERS: Emergency Provider Emergency Medicine; Visit Provider Emergency Medicine
DX: S93.602A Unspecified sprain of left foot, initial encounter (principal); X50.1XXA Overexertion from prolonged static or awkward postures, initial encounter; R03.0 Elevated blood-pressure reading, without diagnosis of hypertension; F17.210 Nicotine dependence, cigarettes, uncomplicated
CPT/HCPCS: 73630; 99283

== ENCOUNTER 2025-02-11 14:51 | Emergency (ER) | payer OTHER, SELFPAY ==
[2025-02-11] VITALS (7 sets, daily range): BP systolic 151–205; BP diastolic 90–118; PULSE 64–78; RESP 12–18; TEMP 36.6–36.9; O2SAT 98–99; BMI 27.8
--- NOTE | 2025-02-11 15:05 | EDS_ITS ---
HPI History of Present Illness Chief Complaint: Nausea/Vomiting Detail of Chief Complaint: Nausea vomiting started Informant: patient and parent Onset/Context/Timing Onset: Days (Personally ) Context: Gradual Onset Timing: Continuous (Nausea is continuous and has generalized abdominal discomfort) Quality: Discomfort Location: Generalized Current Severity: Mild Maximum Severity: Moderate Worsened by: Vomiting and complains of burning sensation back of her throat Relieved by: Nothing Associated Symptoms Associated Symptoms: Thirst, dry mouth, orthostatic lightheadedness, dark urine Narrative Narrative: Patient is a 39-year-old female with history of paroxysmal atrial tachycardia who presents with nausea and vomiting that started this past . Said several episodes on and yesterday. Since 2 AM she has vomited since every hour. She said it was red in color. Mother states it was darker in color. Could not give a specific color. Did not have coffee-ground emesis appearance. Last bowel movement was 3 days. Not having a bowel movement daily is not abnormal. She states she go every 2 to 3 days. She is still passing gas. She has had no abdominal surgery. She denies intolerance to greasy or fried foods. She has no history of liver or gallbladder problems. Review of meds indicates she was on an NSAID. She denies headache, visual, ocular auditory symptoms. She has had no recent upper respiratory tract infectious symptoms. She denies myalgias or arthralgias. She has not noted a rash. She has never had vomiting lasted this long. Review of outside records indicates patient does have history of GERD. She is presently on no H2 pierce or PPI. Prior similar symptoms: No Recent Illness/Hospitalization: No PFSH PFS Medical History Kidney stones Smoker Costochondritis, acute GERD (gastroesophageal reflux disease) Chronic neck and back pain Shoulder pain Home Medications ?Medication ?Instructions ?Recorded ?Last Taken ?Type meloxicam 15 mg tablet 15 mg PO DAILY PRN pain #14 tabs 10/31/24 Unknown Rx ondansetron 4 mg disintegrating 4 mg PO Q8H PRN PRN Na usea #10 tabs 02/11/25 Unknown Rx tablet Allergy/AdvReac Type Severity Reaction Status Date / Time Penicillins Allergy Anaphylaxis Verified 02/11/25 14:54 Family History Other Hypertension Surgical History S/P spinal surgery Hx of section Social History Smoking Status: Current every day smoker tobacco type: cigarettes ROS ROS ED Constitutional Constitutional ED: Denies chills, fever(s), subjective or sweats Eyes Eyes: Denies blurry vision or change in vision ENT ENT ED: Denies ear pain, rhinorrhea or sore throat Cardiovascular Cardiovascular: Denies chest pain or palpitations Respiratory/Chest Respiratory/Chest: Denies cough, dyspnea or dyspnea on exertion Gastrointestinal Gastrointestinal: Reports abdominal pain, nausea and vomiting; Denies constipation, diarrhea or melena Genitourinary Genitourinary ED: Reports other Details: Decreased urine output and darker urine. ; Denies dysuria, hematuria or urinary frequency Musculoskeletal Musculoskeletal: Denies arthralgias or myalgias Integumentary Denies rash Neurologic Neurologic: Denies headache(s), paresthesias or weakness Psychiatric Psychiatric: Denies anxiety or depression Endocrine Endocrinology: Denies cold intolerance or heat intolerance Hematologic/Lymphatic Hematologic/Lymphatic: Reports systems reviewed and no addt'l complaints, except as documented EXAM Physical Exam Const Vital Signs: 02/11/25 14:52 02/11/25 16:50 02/11/25 17:56 Temperature 98.4 F Temperature Source Oral Pulse Rate 72 77 65 Respiratory Rate 18 18 12 Blood Pressure 151/117 H 151/90 H 205/100 H Blood Pressure Mean 128 110 135 Pulse Ox 98 98 99 Oxygen Delivery Method Room Air Room Air Room Air 02/11/25 18:04 02/11/25 18:33 02/11/25 21:09 Temperature 98.4 F 98.4 F Temperature Source Oral Oral Pulse Rate 78 64 Respiratory Rate 16 Blood Pressure 175/112 H 165/118 H Blood Pressure Mean 133 133 Pulse Ox 98 Oxygen Delivery Method Room Air Positive well nourished and well developed Constitutional Narrative: Patient appears ill. She does not. Obvious discomfort. Vital signs are marked for an elevated blood pressure. General Appearance ED: well developed and pallor HEENT Reports dry mucous membranes HEENT Narrative: Head is atraumatic and normocephalic. Ears normal. Nares patent. Posterior pharynx no erythema or exudate. Mouth ED: Yes dry mucous membranes Mouth: dry mucous membranes Eyes PERRL and EOMs intact bilaterally General Eye ED: Negative for pale conjunctiva or scleral icterus Neck no lymphadenopathy, supple and no JVD Resp normal respiratory effort and clear to auscultation bilaterally Cardio regular rate, regular rhythm, S1 normal heart sound, S2 normal heart sound and no murmurs GI non-distended and no masses; Negative for non-tender or hepatosplenomegaly GI Narrative: Abdomen slightly tympanitic periumbilical area. There is no tenderness right upper quadrant left upper quadrant and negative clinical Paz sign. There is significant discomfort in epigastrium. There is no inguinal adenopathy or inguinal mass noted. Bowel sounds are diminished. Palpation: Negative for guarding, splenomegaly, mass or rebound tenderness present Back/Spine no CVA tenderness Extremity normal to inspection Neuro oriented x3 and CN's II-XII intact bilaterally Sensorium / Orientation: alert Psych mental status grossly normal Skin no rashes or lesions noted, no wounds and No skin turgor normal General Skin Exam: pallor; Negative for elasticity normal or jaundice MDM MDM MDM Narrative Medical decision making narrative: Clinically patient appears dehydrated. 1 L normal saline was ordered. Zofran was ordered for her nausea and vomiting. Because she is complaining of burning sensation has epigastric pain and history of GERD Pepcid IV push was ordered. BMP was ordered to assess CO2 anion gap, electrolytes and more importantly renal function. CBC to assess white count and differential. Patient was reassessed at 1618. She looks better. She still states she does not feel well but does report that she feels better. She was formed of lab results. She has no urge to urinate. Second liter was ordered. Lab Data Attestation: I reviewed the patient's lab results. Lab results narrative: CBC reveals an H&H of 17.5 and 48.8. Her H&H is normally in the 13-14 range. This would suggest hemoconcentration due to dehydration. Electrolyte panel reveals a BUN to creatinine ratio of 3061 which is consistent with acute prerenal azotemia due to dehydration. Glucose slightly elevated 126 with a normal CO2 anion gap. Potassium is slightly on the low side at 3.1. This is not significant. Labs: Laboratory Results - last 24 hr 02/11/25 15:16 WBC 9.9 RBC 5.56 H Hgb 17.5 H Hct 48.8 H MCV 87.8 MCH 31.5 MCHC 35.9 RDW Std Deviation 39.6 RDW Coeff of Amrit 12.2 Plt Count 165 MPV 10.3 Immature Gran % (Auto) 0.200 Neut % (Auto) 71.0 H Lymph % (Auto) 21.3 [place] % (Auto) 7.3 Eos % (Auto) 0.1 Baso % (Auto) 0.1 Absolute Neuts (auto) 7.1 Absolute Lymphs (auto) 2.11 Nucleated RBC % 0 Sodium 138 Potassium 3.1 L Chloride 98 Carbon Dioxide 25.0 Anion Gap 16 H BUN 24 H Creatinine 0.69 L Estim Creat Clear Calc 125.18 Est GFR (MDRD) Non-Af 112 BUN/Creatinine Ratio 35.6 H Glucose 126 H Calcium 10.0 Treatment and Re-Evaluation :: I was informed at 1747 the patient became nauseous and has dry heaves after attempting to drink the potassium chloride. In light of this we will treat her dry heaves with 25 mg of Benadryl be pushed followed by 10 mg of Reglan. Comments:: Patient was reassessed at 2033. She had to be awakened. Her burning sensation has improved. She has not vomited after p.o. challenge. She still has no urge to urinate after 3 L. Fourth liter was ordered Vital Sign Attestation:: I was informed at 2113 the patient is urinated. Will discharge to home. Discharge Plan Triage Chief Complaint: Nausea/Vomiting ED Provider: Stephen Ricci Dx/Rx/DC Orders Clinical Impression: Nausea & vomiting, Acute generalized abdominal pain, Acute dehydration, High anion gap, Acute hypokalemia, Acute prerenal azotemia, Elevated blood-pressure reading without diagnosis of hypertension Instructions: ED Hypertension, To Be Confirmed, ED Vomiting (Adult) Prescriptions: New ondansetron 4 mg tablet,disintegrating 4 mg PO Q8H PRN PRN (Reason: Nausea) Qty: 10 0RF No Action meloxicam 15 mg tablet 15 mg PO DAILY PRN (Reason: pain) Qty: 14 0RF Primary Care Provider: Care Physician,No Primary Referrals: Care Physician,No Primary [Primary Care Provider, Medical] Netta Forde MD [[facility]] - 1-2 Weeks Activity Restrictions/Additional Instructions: You had several elevated blood pressure readings. You will need to follow-up with your doctor in 1 to 2 weeks for reevaluation your blood pressure. If you do not have a doctor you were referred to Dr. Healy Print Language: Mauritian Disposition Disposition: Home, Self Care
[2025-02-11] MEDS: 0.9% Normal Saline (1000mL) 1,000 ML 1000 ML IV ×3 (15:18→19:07)
[2025-02-11 15:25] LABS: Hematocrit 48.8 % (37-47); Hemoglobin 17.5 g/dL (12.0-15.0); Immature Granulocytes Count 0.020 X10^3/uL (0.0-0.0); Mean Corp Hgb Conc 35.9 g/dL (32-36); Mean Corpuscular Volume 87.8 fL (81-99); Mean Platelet Vol. 10.3 fl (6.2-12.0); NRBC Flagged by Analyzer 0 % (0-5); Platelet Count 165 K/mm3 (150-450); RBC Distribution Width CV 12.2 % (11.6-14.6); RBC Distribution Width SD 39.6 fl (35.1-43.9); Red Blood Count 5.56 M/mm3 (4.2-5.4); White Blood Count 9.9 K/mm3 (4.4-11.0)
--- OUTSIDE RECORDS SUMMARY | 2025-02-11 15:34 | XMS RPT_ITS ---
Comprehensive CCD (C-CDA v2.1) Created on: February 11, 2025 TAMMY ANNA Days 5- 8 1 0 1 Days [...] the office if questions. documented in this encounterUniversity [facility]als [facility]03-01-[facility]23 History of Present illness Narrative* Joann Avery PA-C - 04/23/2022 8:56 AM EST Spine [...] the right thumb. 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 Working on quitting. 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 Interventions: Medications: ibuprofen PRN, tylenol PRN -Previously [...] which included preparing to see the patient, [id number]-kayv patient care, completing clinical documentation, obtaining and/or [...] of red flags detailed in HPI. SIGNATURE: Joann Avery PA-C PATIENT NAME: Tammy Anna DATE: April 23, 2022 TIME: 8:56 AM documented in this encounterUniversity Hospitals Port[facility]01-23-2023 History of Present illness Narrative* Garcia Cuellar MD - 03/17/2022 1:00 PM EST Garcia Cuellar MD Tammy Anna March 17, [...] old female [facility]. Chronic diffuse joint [...] Return Visit: I will contact her through [employer] for results. We will make a plan after the resultsare available. I spent a total of 70 minutes on the date of the service which included preparing to see the patient, [id number]-[id number] patient care, completing clinical documentation, obtaining and/or reviewing separately obtained history, performing a medically appropriate examination, counseling and educating the pat ient/family/caregiver, and ordering medications, tests, or procedures. Garcia Cuellar MD Referring Provider: PCP: Tonya Arriaga CNP documented in this encounterUniversity Hospitals Port[facility] Center11-01-2022 Instructions* Patient Instructions* Rick Gomez MD - 12/24/2021 10:15 AM EDT Images from the original note were not included. documented in this encounterUniversity Hospitals Portage [facility] Center11-01-2022 History of Present illness Narrative* Rick Gomez [...] 24, 2021 10:14 AM documented in this encounterUniversity Hospitals [facility]04-13-2022 Miscellaneous Notes* Telephone Encounter - Sangeeta Teague LPN - 06/05/2021 2:36 PM EDT Called client services and they will be running the celiac screening today. * Telephone Encounter - Sangeeta Teague LPN - 06/03/2021 2:37 PM EDT Patient is asking what IGA Blood is testing for. Not exactly sure how to answer this. documented in this encounterUniversity Hospitals [facility] Center04-11-2022 Miscellaneous Notes* Telephone Encounter - Dior Hendricks [...] results. Dior Hendricks RN documented in this encounterUniversity Hospitals Port[facility] Center04-08-2022 Miscellaneous Notes* Telephone Encounter - Lauren Esquivel APRN.CNP - 05/31/2021 4:02 PM EDT Done. Lauren Esquivel APRN.YING * Telephone Encounter - Sangeeta Teague LPN - 05/31/2021 9:14 AM EDT A new order for H-Pylori stool needs placed. Previous one has . documented in this encounterUniversity Hospitals [facility] Center04-06-2022 Miscellaneous Notes* Telephone Encounter - Iwona Fonseca [...] results from her EGD. Thanks Lauren Esquivel APRN.NUCLEAR PLANT EQUIPMENT OPERATOR Biopsies from small bowel/duodenum showed mildly increased lymphocytes. Recommend checking celiac serology if not already done. Otherwise biopsies are unremarkable. Follow up with Ms Esquivel in GI clinic. Mckinley Mendez MD documented in this encounterUniversity Hospitals Portage [facility] Center03-31-2022 Nurse Note* Monica Puentes RN - 05/23/2021 11:52 AM EDT 100mL of LR given in recovery. Iv was intact, no redness. Hob up. Passing air. States ready to go. Corporate Compliance Manager called - here. Assisted pt w/dressing. All belongings given. Dr was already at the bedside. No questions. * Monica Puentes RN - 05/23/2021 11:[address] at the bedside. No questions. Corporate Compliance Manager called - here. * Monica Puentes RN - 05/23/2021 11:33 AM EDT Encouraged to pass air documented in this encounterUniversity Hospitals Portage [facility] Center03-31-2022 History and physical note * Mckinley Mendez [...] None Mckinley Mendez MD documented in this encounterUniversity Hospitals Port[facility] Center03-29-2022 History of Present illness Narrative* Tiera Waddell [...] RIGHT Tiera Waddell PA-C documented in this encounterUniversity Hospitals Portage [facility] Center03-29-2022 Miscellaneous Notes* Telephone Encounter - Katelyn Corcoran [...] if not getting better. documented in this encounterUniversity Hospitals Portage Medical CenterDismer[facility] summary Author Papo Peterson [facility] April 12, 2023 12:52pm Note Date/Time April 12, 2023 11:50am [facility] Medical Records Department [address] [place] [address] Emergency Department Summary 04/12/23 MR#: [id number] Acct: [id number] Name: TAMMY ANNA Rep #[id number] 1985 37 From: Papo Newton PCP: [facility] atus:KRISTINA ER Location: ED HPI History of Present Illness Chief Complaint: Numb/Ting [facility] Medical History Chronic neck and back [...] Dispo: Discharge This note was generated with [employer] dictation software. It may contain incorrectwords, spelling, [...] DAILY Qty: 21 0RF [facility] Referrals: Jonas Pena MD [[facility] Staff - Active Staff] - Activity [...] your Primary Care Provider. Call [facility] ([phone]) or report to the closest Emergency Room. Call 911 if necessary. 04/12/23 1252 <Electronically signed by Papo Peterson DO> Cosigner Signature (if applicable): CC: [facility] ~ Signed [facility] Work Phone: Evaluation note* Diagnosis Finger pain, right- Primary Pain in limb documented in this encounter [facility] CenterEvaluation [facility]* Diagnosis Heartburn History of Helicobacter pylori infection Personal history of other infectious and parasitic disease Epigastric pain Abdominal pain, epigastric Nausea Nausea alone Dark stools Nonspecific abnormal finding in stool contents Loose stools Abnormal feces [facility] Nausea- Primary Nausea alone Epigastric pain Abdominal pain, epigastric [facility]* Diagnosis H. pylori infection- Primary Helicobacter pylori (H. pylori) documented in this encounter [facility] CenterEvaluation noteNo assessment information availableWMercy Health [facility]iff[facility] Work Phone: Evaluation note* Diagnosis Progressive peripheral pterygium of right eye- Primary Peripheral pterygium, progressive Dry eye syndrome of both eyes documented in this encounter [facility]* Diagnosis Multiple joint pain- Primary Pain in joint, multiple sites Chronic midline low back pain with bilateral sciatica Neck pain Cervicalgia Positive JONY (antinuclear antibody) Other and unspecified nonspecific immunological findings Numbness and tingling of both feet documented in this encounter [facility]* Diagnosis Chronic bilateral low back pain with right-sided sciatica- Primary Pain in both upper extremities Neck pain Cervicalgia Imbalance Abnormality of gait Bladder dysfunction Other functional disorder of bladder Impaired dexterity documented in this encounter [facility]* Diagnosis Chronic bilateral low back pain with right-sided sciatica Pain in both upper extremities Neck pain Cervicalgia Imbalance Abnormality of gait Impaired dexterity Acute back pain with sciatica, right Cervicalgia documented [facility]* Diagnosis Cervical myelopathy (HCC)- Primary Cervical spondylosis with myelopathy Cervical stenosis of spine Spinal stenosis in cervical region documented in this encounter [facility]* Diagnosis Pre-operative examination- Primary Preoperative examination, [...] myelopathy documented in this encounter [facility]* Diagnosis Presence of surgical incision- Primary documented in this encounter [facility]* Diagnosis Cervical myelopathy (HCC)- Primary Cervical spondylosis with myelopathy documented in this encounter [facility]* Diagnosis Fibromyalgia- Primary Mylagia and myositis, unspecified Cervical myelopathy (HCC) Cervical spondylosis with myelopathy documented in this encounter [facility]* Diagnosis Cervical stenosis of spine- Primary Spinal stenosis in cervical region documented in this encounter [facility]* Diagnosis Cervical myelopathy (HCC) Cervical spondylosis with myelopathy documented in this encounter [facility]* Diagnosis Cervical myelopathy (HCC) Cervical spondylosis with myelopathy documented in this encounter [facility]* Diagnosis Toothache- Primary Unspecified disorder of the teeth and supporting structures documented in this encounter [facility]* Diagnosis Multiple joint pain Pain in [...] 30.9 in adult documented in this encounter [facility]* Diagnosis Finger pain, right Pain in limb [facility] Additional Instructions Ice your foot. Try to stay off of it. Take 3 gunh-bwh-vdfwben ibuprofen (a total of 600 mg) every 6 hours as needed for pain. You may alternate this with Tylenol.[facility] Work Phone: Hospital Discharge instructions [...] orthopedic surgery for further outpatient evaluation and management.[facility] Work Phone: Hospital Discharge instructions Additional Instructions I would like for you to take a total of 10 days worth of clindamycin. Therefore I have prescribed an additional 5 days to what you are already taking. I have also wrote for some nausea medication. Please also take the anti-inflammatory I have prescribed and the pain medicine as needed.[facility] Work Phone: Hospital Discharge instructions Additional Instructions Percocet for pain. Motrin for pain and inflammation. Follow-up with your primary care physician if not improving because if this is not improving you may need an MRI of your lower back to rule out degenerative disc disease. Your exam and history however go along with sciatica.[facility] Work Phone: Hospital Discharge instructionsAmbulatory Orders* Pain Management Location: None [facility] Work Phone: Patient's home Plan [...] to call 911. documented in this encounter [facility] Plan of care note* Visit Details Visit Type -TRANSPORTATION ECONOMICS TEACHER ROUTINE Discipline -Physical Therapy Problems Problem Description [...] to call 911. documented in this encounter [facility] Plan [facility] care note* Visit Details [...] DVT and PE documented in this encounter [facility] Plan of care note* Visit Details Visit Type -PT AGENCY DC W Gibran ISIT Discipline -Physical Therapy Problems Problem Description [...] include: verbal cues. documented in this encounter [facility] for referral (narrative)* Diagnostic Procedure Only (Urgent) - Closed Specialty Diagnoses / Procedures Referred By Contac t Referred To Contact XR IMAGING Diagnoses Finger pain, right Procedures XR DIGIT GENERAL 3V FRONTAL/LAT/OBL RIGHT RADEX FINGR MINIMUM 2 VIEWS Tiera Waddell PA-C [address] [place] [address] Xr Imaging Referral ID Status Reason Start Date Expiration Date V isits Requested Visits Authorized [id number] Closed Auto-Generate d Referral 05/21/2021 06/20/2022 [address] [facility] for referral (narrative)* Outpatient Procedure (Routine) - Closed Specialty Diagnoses / Procedures Referred By Contac t Referred To Contact [facility] Diagnoses Heartburn History of Helicobacter pylori infection Epigastric pain Nausea Dark stools Loose stools Procedures EGD DIAGNOSTIC ESOPHAGOGASTRODUODENOSCO PY TRANSORAL DIAGNOSTIC Lauren Esquivel APRN.NUCLEAR PLANT EQUIPMENT OPERATOR [address] [place] [id number] [facility] [address] [place] [address] Referral ID Status Reason Start Date Expiration Date V isits Requested Visits Authorized [id number] Closed Auto-Generate d Referral 04/10/2021 04/10/2022 [address] [facility] for referral (narrative)* Diagnostic Procedure Only (Routine) - Closed Specialty Diagnoses / Procedures Referred By Contac t Referred To Contact XR IMAGING Diagnoses Multiple joint pain Chronic midline low back pain with bilateral sciatica Neck pain Procedures XR CERV OTHER 4V AP/LAT/OBL RADEX SPINE CERVICAL 4 OR 5 VIEWS Garcia Cuellar MD [address] [place] [address] Xr Imaging Referral ID Status Reason Start Date Expiration Date V isits Requested Visits Authorized [id number] Closed Auto-Generate d Referral 03/17/2022 04/16/2023 1 1 * Diagnostic Procedure Only (Routine) - Closed Specialty Diagnoses / Procedures Referred By Contac t Referred To Contact XR IMAGING Diagnoses Multiple joint pain Chronic midline low back pain with bilateral sciatica Neck pain Procedures XR LUMBAR GENERAL 3V AP/LAT/L5-S1 RADEX SPINE LUMBOSACRAL 2/3 VIEWS Garcia Cuellar MD [address] [place] [address] Xr Imaging Referral ID Status Reason Start Date Expiration Date V isits Requested Visits Authorized [id number] Closed Auto-Generate d Referral 03/17/2022 04/16/2023 [address] [facility] for referral (narrative)* Outpatient Procedure (Routine) - Closed Specialty Diagnoses / Procedures Referred By Contac t Referred To Contact [facility] Diagnoses Pre-operative examination Procedures ECG COMPLETE ECG ROUTINE ECG W/LEAST 12 LDS W/I&R Luna Mas ELECTRICAL SYSTEM SPECIALIST.NUCLEAR PLANT EQUIPMENT OPERATOR [address] [place] [address] [facility] [address] [place] [address] Referral ID Status Reason Start Date Expiration Date V isits Requested Visits Authorized [id number] Closed Auto-Generate d Referral 06/04/2022 06/04/2023 [address] [facility] for referral (narrative)* Diagnostic Procedure Only (Routine) - Pending Review Specialty Diagnoses / Procedures Referred By Contac t Referred To Contact XR IMAGING Diagnoses Cervical myelopathy (HCC) Procedures XR CERV GENERAL 2V AP/LAT RADEX SPINE CERVICAL 2 OR 3 VIEWS Reyes Azevedo MD [address] [place] [address] Xr Imaging Referral ID Status Reason Start Date Expiration Date Visits Requested Visits Authorized [id number] Pending Review Auto-Generat ed Referral 11/21/2022 09/20/2023 [address] [facility] for referral (narrative)* Diagnostic Procedure Only (Routine) - Closed Specialty Diagnoses / Procedures Referred By Contac t Referred To Contact XR IMAGING Diagnoses Fibromyalgia Cervical myelopathy (HCC) Procedures XR CERV GENERAL 2V AP/LAT RADEX SPINE CERVICAL 2 OR 3 VIEWS Garcia Cuellar MD [address] [place], [place] [id number] Xr Imaging Referral ID Status Reason Start Date Expiration Date V isits Requested Visits Authorized [id number] Closed Auto-Generate d Referral 09/17/2022 10/17/2023 [address] [facility] for referral (narrative)* Diagnostic Procedure Only (Routine) - Closed Specialty Diagnoses / Procedures Referred By Contac t Referred To Contact XR IMAGING Diagnoses Cervical myelopathy (HCC) Procedures XR CERV GENERAL 2V AP/LAT RADEX SPINE CERVICAL 2 OR 3 VIEWS Reyes Azevedo MD [address] [place] [address] [place] [address] Referral ID Status Reason Start Date Expiration Date V isits Requested Visits Authorized [id number] Closed Auto-Generate d Referral 11/21/2022 09/20/2023 [address] [facility] for referral (narrative)* Diagnostic Procedure Only (Routine) - Closed Specialty Diagnoses / Procedures Referred By Contac t Referred To Contact XR IMAGING Diagnoses Multiple joint pain Chronic midline low back pain with bilateral sciatica Neck pain Procedures XR CERV OTHER 4V AP/LAT/OBL RADEX SPINE CERVICAL 4 OR 5 VIEWS Garcia Cuellar MD [address] [place], [place] [id number] [place] [address] Referral ID Status Reason Start Date Expiration Date V isits Requested Visits Authorized [id number] Closed Auto-Generate d Referral 03/17/2022 04/16/2023 1 1 * Diagnostic Procedure Only (Routine) - Closed Specialty Diagnoses / Procedures Referred By Amos t Referred To Contact XR IMAGING Diagnoses Multiple joint pain Chronic midline low back pain with bilateral sciatica Neck pain Procedures XR LUMBAR GENERAL 3V AP/LAT/L5-S1 RADEX SPINE LUMBOSACRAL 2/3 VIEWS Garcia Cuellar MD [address] [place] [address] [place] [address] Referral ID Status Reason Start Date Expiration Date V isits Requested Visits Authorized [id number] Closed Auto-Generate d Referral 03/17/2022 04/16/2023 [address] [facility] for referral (narrative)* Diagnostic Procedure Only (Urgent) - Closed Specialty Diagnoses / Procedures Referred By Amos trejo Referred To Contact XR IMAGING Diagnoses Finger pain, right Procedures XR DIGIT GENERAL 3V FRONTAL/LAT/OBL RIGHT RADEX FINGR MINIMUM 2 VIEWS Tiera Waddell PA-C [address] [place] [address] [place] [address] Referral ID Status Reason Start Date Expiration Date V isits Requested Visits Authorized [id number] Closed Auto-Generate d Referral 05/21/2021 06/20/2022 [address] [facility] for referral (narrative)No reason for referral information availableSt. [facility] Work Phone: Reason for visit Narrative* Outpatient Procedure (Routine) - Closed Specialty Diagnoses / Procedures Referred By Amos trejo Referred To Contact [facility] Diagnoses Heartburn History of Helicobacter pylori infection Epigastric pain Nausea Dark stools Loose stools Procedures COLONOSCOPY DIAGNOSTIC COLONOSCOPY FLX DX W/COLLJ SPEC WHEN PFRMD Lauren Esquivel APRN.NUCLEAR PLANT EQUIPMENT OPERATOR [address] [place] [address] [facility] [address] [facility] [place] [address] Referral ID Status Reason Start Date Expiration Date V isits Requested Visits Authorized [id number] Closed Auto-Generate d Referral 04/10/2021 04/10/2022 [address] [facility] for visit Narrative* Diagnostic Procedure Only (Routine) - Closed Specialty Diagnoses / Procedures Referred By Contac t Referred To Contact XR IMAGING Diagnoses Cervical myelopathy (HCC) Procedures XR CERV GENERAL 2V AP/LAT RADEX SPINE CERVICAL 2 OR 3 VIEWS Reyes Azevedo MD [address] [place] [address] [place] [address] Referral ID Status Reason Start Date Expiration Date V isits Requested Visits Authorized [id number] Closed Auto-Generate d Referral 11/21/2022 09/20/2023 [address] [facility] for visit Narrative* Diagnostic Procedure Only (Urgent) - Closed Specialty Diagnoses / Procedures Referred By Contac t Referred To Contact XR IMAGING Diagnoses Finger pain, right Procedures XR DIGIT GENERAL 3V FRONTAL/LAT/OBL RIGHT RADEX FINGR MINIMUM 2 VIEWS Tiera Waddell, PAStacey [address] [place] [address] [place] [address] Referral ID Status Reason Start Date Expiration Date V isits Requested Visits Authorized [id number] Closed Auto-Generate d Referral 05/21/2021 06/20/2022 1 1 [facility] Summary Purpose Family History Relationship Condition Age at Onset Recorded Date/T lester Not Specified Hypertension Unknown Advance Directives Documents on File Type Date Recorded Patient Rough Patcher Expl anation Advance Directive(s) 05/23/2021 9:59 AM Documents on File Type Date Recorded Patient Rough Patcher Expl anation Advance Directive(s) 05/23/2021 9:59 AM Advance Directive Response Recorded Date/ Time Living Will No February 22 3:36pm Power of Citrix Engineer No February 22, 2021 3:36pm Advance Directive Response Recorded Date/ Time Living Will No December 03 10:41am Power of Citrix Engineer No December 03, 2021 10:41am Advance Directive Response Recorded Date/ Time Living Will No March 04 12:51pm Power of Citrix Engineer No March 04, 2022 12:51pm Latest Code [...] Date/ Time Living Will No April 12, 12:51pm Power of Citrix Engineer No April 12, 2023 12:51pm Date Activated Date Inactivated Comments 07/07/2022 12:52 PM Advance Directive Response Recorded Date/ Time Living Will No May 10, 2023 9:40am Power of Citrix Engineer No May 09 9:40am Advance Directive Response Recorded Date/ Time Living Will No May 20, 2023 2:54pm Power of Citrix Engineer No May 19 2:54pm Date Activated Date Inactivated Comments 07/07/2022 12:52 PM Advance Directive Response Recorded Date/ Time Do you have a Healthcare Power of Citrix Engineer? No June 16, 2024 6:26am Advance Directive Response Recorded Date/ Time Do you have a Healthcare Power of Citrix Engineer? No October 31, 2024 10:00pm Advance Directive Response Recorded Date/ Time Do you have a Healthcare Power of Citrix Engineer? No October 31, 2024 10:00pm Do you have a Healthcare Power of Citrix Engineer? No December 07, 2024 8:04pm Chief Complaint and Reason for Visit Chief [...] RM 3 September 30, 2024 3:0 2pm Chief Complaint [...] 8:07pm LUMBAR RAD November 01, 2024 8:37am Chief Complaint Admit Date lumbar spine September 30, 2024 2:4 3pm RM 3 September 30, 2024 3:0 2pm UPPER EXTR October 31, 2024 8:07pm LUMBAR RAD November 01, 2024 8:37am L FOOT INJURY December 07, 2024 6 :14pm Medications Administered Section Active Administered Medications - [...] MRI SPINAL CANAL LUMBAR W/O CONTRAST MATERIAL Joann Avery PA-C [address] [place] [address] Mr Imaging Referral ID Status Reason Start Date Expiration Date Visits Requested Visits Authorized [id number] Pending Review Auto-Generat ed Referral 04/23/2022 05/23/2023 1 1 Specialty Diagnoses / Procedures Referred By Contac t Referred To Contact MR IMAGING Diagnoses Pain in both upper extremities Neck pain Imbalance Bladder dysfunction Impaired dexterity Procedures MRI CERVICAL SPINE WO IVCON MRI SPINAL CANAL CERVICAL W/O CONTRAST MATRL Joann Avery PA-C [address] [place] [address] Mr Imaging Referral ID Status Reason Start Date Expiration Date Visits Requested Visits Authorized [id number] Pending Review Auto-Generat ed Referral 04/23/2022 05/23/2023 1 1 Specialty Diagnoses / Procedures Referred By Contac t Referred To Contact [facility] Diagnoses Chronic bilateral low back pain with right-sided sciatica Pain in both upper extremities Neck pain Imbalance Impaired dexterity Procedures CONSULT TO PHYSICAL THERAPY PHYSICAL THERAPY EVALUATION HIGH COMPLEX 45 MINS Joann Avery PA-C [address] [place] [address] [facility] [address] [address] Referral ID Status Reason Start Date Expiration Date Visits Requested Visits Authorized [id number] Authorized Auto-Generat ed Referral 04/23/2022 07/23/2022 1 1 Specialty Diagnoses / Procedures Referred By Contac t Referred To Contact [facility] Diagnoses Chronic bilateral low back pain with right-sided sciatica Pain in both upper extremities Neck pain Imbalance Impaired dexterity Acute back pain with sciatica, right Cervicalgia Procedures PT REHAB FOLLOW UP ORDER THERAPEUTIC EXERCISES RE, EA 15 MIN. Pt [facility] [address] [place] [address] [facility] [place] [facility] [facility] [address] [address] Referral ID Status Reason Start Date Expiration Date Visits Requested Visits Authorized [id number] Pending Review PCP Requested Referral Auto-Generate d Referral 04/29/2022 07/28/2022 1 1 Specialty Diagnoses / Procedures Referred By Contac t Referred To Contact CT IMAGING Diagnoses Cervical myelopathy (HCC) Procedures CT CERVICAL SPINE WO IVCON CT CERVICAL SPINE W/O CONTRAST MATERIAL Reyes Azevedo MD [address] [place] [address] [place] [address] Referral ID Status Reason Start Date Expiration Date V isits Requested Visits Authorized [id number] Closed Auto-Generate d Referral 06/04/2022 08/03/2022 1 1 Additional Source Comments INFORMATION SOURCE (unrecogn ized section and content) DATE CREATED AUTHOR 01/30/2021 [facility] DATE CREATED AUTHOR AUTHOR'S ORGANIZ ATION 07/06/2022 [facility] DATE CREATED AUTHOR AUTHOR'S ORGANIZ ATION 05/10/2023 [facility] DATE CREATED AUTHOR AUTHOR'S ORGANIZ ATION 12/16/2024 [facility] Source Comments (unrecognize d section and content) In the event this informatio n is protected by the Federal Confidentiality of Alcohol and Drug Abuse Patient Records regulations: The Federal rules restrict any use of the information to criminally investigate or prosecute any alcohol or drug abuse patient.[facility] the event this information is protected by the Federal Confidentiality of Alcohol and Drug Abuse Patient Records regulations: The Federal rules restrict any use of the information to criminally investigate or prosecute any alcohol or drug abuse patient.[facility] Center[facility] the event this information is protected by the Federal Confidentiality of Alcohol and Drug Abuse Patient Records regulations: The Federal rules restrict any use of the information to criminally investigate or prosecute any alcohol or drug abuse patient.[facility] Center[facility] the event this information is protected by the Federal Confidentiality of Alcohol and Drug Abuse Patient Records regulations: The Federal rules restrict any use of the information to criminally investigate or prosecute any alcohol or drug abuse patient.[facility] CenterIn the event this information is protected by the Federal Confidentiality of Alcohol and Drug Abuse Patient Records regulations: The Federal rules restrict any use of the information to criminally investigate or prosecute any alcohol or drug abuse patient.[facility] CenterIn the event this information is protected by the Federal Confidentiality of Alcohol and Drug Abuse Patient Records regulations: The Federal rules restrict any use of the information to criminally investigate or prosecute any alcohol or drug abuse patient.[facility] CenterIn the event this information is protected by the Federal Confidentiality of Alcohol and Drug Abuse Patient Records regulations: The Federal rules restrict any use of the information to criminally investigate or prosecute any alcohol or drug abuse patient.[facility] CenterIn the event this information is protected by the Federal Confidentiality of Alcohol and Drug Abuse Patient Records regulations: The Federal rules restrict any use of the information to criminally investigate or prosecute any alcohol or drug abuse patient.[facility] CenterIn the event this information is protected by the Federal Confidentiality of Alcohol and Drug Abuse Patient Records regulations: The Federal rules restrict any use of the information to criminally investigate or prosecute any alcohol or drug abuse patient.[facility] CenterIn the event this information is protected by the Federal Confidentiality of Alcohol and Drug Abuse Patient Records regulations: The Federal rules restrict any use of the information to criminally investigate or prosecute any alcohol or drug abuse patient.[facility] CenterIn the event this information is protected by the Federal Confidentiality of Alcohol and Drug Abuse Patient Records regulations: The Federal rules restrict any use of the information to criminally investigate or prosecute any alcohol or drug abuse patient.[facility] CenterIn the event this information is protected by the Federal Confidentiality of Alcohol and Drug Abuse Patient Records regulations: The Federal rules restrict any use of the information to criminally investigate or prosecute any alcohol or drug abuse patient.[facility] CenterIn the event this information is protected by the Federal Confidentiality of Alcohol and Drug Abuse Patient Records regulations: The Federal rules restrict any use of the information to criminally investigate or prosecute any alcohol or drug abuse patient.[facility] CenterIn the event this information is protected by the Federal Confidentiality of Alcohol and Drug Abuse Patient Records regulations: The Federal rules restrict any use of the information to criminally investigate or prosecute any alcohol or drug abuse patient.[facility] CenterIn the event this information is protected by the Federal Confidentiality of Alcohol and Drug Abuse Patient Records regulations: The Federal rules restrict any use of the information to criminally investigate or prosecute any alcohol or drug abuse patient.[facility] CenterIn the event this information is protected by the Federal Confidentiality of Alcohol and Drug Abuse Patient Records regulations: The Federal rules restrict any use of the information to criminally investigate or prosecute any alcohol or drug abuse patient.[facility] CenterIn the event this information is protected by the Federal Confidentiality of Alcohol and Drug Abuse Patient Records regulations: The Federal rules restrict any use of the information to criminally investigate or prosecute any alcohol or drug abuse patient.[facility] CenterIn the event this information is protected by the Federal Confidentiality of Alcohol and Drug Abuse Patient Records regulations: The Federal rules restrict any use of the information to criminally investigate or prosecute any alcohol or drug abuse patient.[facility] CenterIn the event this information is protected by the Federal Confidentiality of Alcohol and Drug Abuse Patient Records regulations: The Federal rules restrict any use of the information to criminally investigate or prosecute any alcohol or drug abuse patient.[facility] CenterIn the event this information is protected by the Federal Confidentiality of Alcohol and Drug Abuse Patient Records regulations: The Federal rules restrict any use of the information to criminally investigate or prosecute any alcohol or drug abuse patient.[facility] CenterIn the event this information is protected by the Federal Confidentiality of Alcohol and Drug Abuse Patient Records regulations: The Federal rules restrict any use of the information to criminally investigate or prosecute any alcohol or drug abuse patient.[facility] CenterIn the event this information is protected by the Federal Confidentiality of Alcohol and Drug Abuse Patient Records regulations: The Federal rules restrict any use of the information to criminally investigate or prosecute any alcohol or drug abuse patient.[facility] CenterIn the event this information is protected by the Federal Confidentiality of Alcohol and Drug Abuse Patient Records regulations: The Federal rules restrict any use of the information to criminally investigate or prosecute any alcohol or drug abuse patient.[facility] CenterIn the event this information is protected by the Federal Confidentiality of Alcohol and Drug Abuse Patient Records regulations: The Federal rules restrict any use of the information to criminally investigate or prosecute any alcohol or drug abuse patient.[facility] CenterIn the event this information is protected by the Federal Confidentiality of Alcohol and Drug Abuse Patient Records regulations: The Federal rules restrict any use of the information to criminally investigate or prosecute any alcohol or drug abuse patient.[facility] CenterIn the event this information is protected by the Federal Confidentiality of Alcohol and Drug Abuse Patient Records regulations: The Federal rules restrict any use of the information to criminally investigate or prosecute any alcohol or drug abuse patient.[facility] CenterIn the event this information is protected by the Federal Confidentiality of Alcohol and Drug Abuse Patient Records regulations: The Federal rules restrict any use of the information to criminally investigate or prosecute any alcohol or drug abuse patient.[facility] CenterIn the event this information is protected by the Federal Confidentiality of Alcohol and Drug Abuse Patient Records regulations: The Federal rules restrict any use of the information to criminally investigate or prosecute any alcohol or drug abuse patient.[facility] CenterIn the event this information is protected by the Federal Confidentiality of Alcohol and Drug Abuse Patient Records regulations: The Federal rules restrict any use of the information to criminally investigate or prosecute any alcohol or drug abuse patient.[facility] CenterIn the event this information is protected by the Federal Confidentiality of Alcohol and Drug Abuse Patient Records regulations: The Federal rules restrict any use of the information to criminally investigate or prosecute any alcohol or drug abuse patient.[facility] CenterIn the event this information is protected by the Federal Confidentiality of Alcohol and Drug Abuse Patient Records regulations: The Federal rules restrict any use of the information to criminally investigate or prosecute any alcohol or drug abuse patient.[facility] CenterIn the event this information is protected by the Federal Confidentiality of Alcohol and Drug Abuse Patient Records regulations: The Federal rules restrict any use of the information to criminally investigate or prosecute any alcohol or drug abuse patient.[facility] CenterIn the event this information is protected by the Federal Confidentiality of Alcohol and Drug Abuse Patient Records regulations: The Federal rules restrict any use of the information to criminally investigate or prosecute any alcohol or drug abuse patient.[facility] CenterIn the event this information is protected by the Federal Confidentiality of Alcohol and Drug Abuse Patient Records regulations: The Federal rules restrict any use of the information to criminally investigate or prosecute any alcohol or drug abuse patient.[facility] CenterIn the event this information is protected by the Federal Confidentiality of Alcohol and Drug Abuse Patient Records regulations: The Federal rules restrict any use of the information to criminally investigate or prosecute any alcohol or drug abuse patient.[facility] Reason for Visit (unrecogniz ed section and [...] PHYSICAL THERAPY EVALUATION HIGH COMPLEX 45 MINS Joann Avery PA-C [address] [place] [address] [facility] [place] [address] [place] [address] Referral ID Status Reason Start Date Expiration Date V isits Requested Visits Authorized [id number] Closed Auto-Generate d Referral 04/23/2022 07/23/2022 1 1 Reason Comments New Patient Reason Comments surgery scheduling Reason Comments Appointment Reason Comments Consult Reason Comments Patient Update Reason Comments Forms Reason Comments preop info Specialty Diagnoses / Procedures Referred By Contac t Referred To Contact [facility] [address] [place] [address] Referral ID Status Reason Start Date Expiration Date Visits Re quested Visits Authorized [id number] 1 1 Reason Comments Post Op Reason Comments Patient Question Reason Comments Joint Pain Reason Comments Established Patient Reason Comments Radiology CT Specialty Diagnoses / Procedures Referred By Contac t Referred To Contact CT IMAGING Diagnoses Cervical myelopathy (HCC) Procedures CT CERVICAL SPINE WO IVCON CT CERVICAL SPINE W/O CONTRAST MATERIAL Reyes Azevedo MD [address] [place] [address] [place] [address] Referral ID Status Reason Start Date Expiration Date V isits Requested Visits Authorized [id number] Closed Auto-Generate d Referral 06/04/2022 08/03/2022 1 1 Reason Comments Pain, Sinus Sinus pain and press ure-possibly a tooth ache x 4 days Reason Comments Radio Gen P Radiology Service Pr ogress NotePATIENT NAME: Tammy AnnaMRN: [id number] OF SERVICE: March 17, 2022TIME: 1:53 PMPATIENT [...] 5 VIEWS Garcia Cuellar MD [address] [place] [address] [place] [address] Referral ID Status Reason Start Date Expiration Date V isits Requested Visits Authorized [id number] Closed Auto-Generate d Referral 03/17/2022 04/16/2023 1 1 Care Teams (unrecognized sec tion and content) Game Advisor Relationship Specialty Start Date End Date Lauren Daniel PCP - General Family Practice 10/05/18 Dipak Henao MD [address] [facility] [place] [address] [facility] 03/09/20 Game Advisor Relationship Specialty Start Date End Date Lauren Daniel PCP - General Family Practice 10/05/18 Dipak Henao MD [address] [place] [address] [facility] 03/09/20 Game Advisor Relationship Specialty Start Date End Date Lauren Daniel PCP - General Family Practice 10/05/18 Dipak Henao MD [address] [place] [address] [facility] 03/09/20 Game Advisor Relationship Specialty Start Date End Date Lauren Daniel PCP - General Family Practice 10/05/18 Dipak Henao MD [address] [place] [address] [facility] 03/09/20 Game Advisor Relationship Specialty Start Date End Date Lauren Daniel PCP - General Family Practice 10/05/18 Dipak Henao MD [address] [place] [address] [facility] 03/09/20 Game Advisor Relationship Specialty Start Date End Date Lauren Daniel PCP - General Family Practice 10/05/18 Dipak Henao MD [address] [facility] [place] [address] [facility] 03/09/20 Game Advisor Relationship Specialty Start Date End Date Lauren Daniel PCP - General Family Practice 10/05/18 Dipak Henao MD [address] [facility] [place] [address] [facility] 03/09/20 Game Advisor Relationship Specialty Start Date End Date Lauren Daniel PCP - General Family Practice 10/05/18 Dipak Henao MD [address] [facility] [place] [address] [facility] 03/09/20 Game Advisor Relationship Specialty Start Date End Date Lauren Daniel PCP - General Family Practice 10/05/18 Dipak Henao MD [address] [facility] [place] [address] [facility] 03/09/20 Game Advisor Relationship Specialty Start Date End Date Tonya Arriaga, YING [address] [facility] [address] PCP - General Internal Medicine 12/12/21 Lauren Daniel Family Medicine 12/12/21 Dipak Henao MD [address] [facility] [place] [address] [facility] 03/09/20 Carter Pierce MD [address] [place] [address] Referring Family Medicine 12/07/21 Melania Petty NP Family Medicine 12/12/21 Game Advisor Relationship Specialty Start Date End Date Tonya Arriaga NUCLEAR PLANT EQUIPMENT OPERATOR [address] [place] [address] PCP - General Internal Medicine 12/12/21 Lauren Daniel [address] [place] [address] Family Medicine 12/12/21 Dipak Henao MD [address] [place] [address] [facility] Family Medicine 03/09/20 Carter Pierce(Historical), [address] [place] [address] Referring Family Medicine 12/07/21 Melania Petty NP [address] [place] [address] Family Medicine 12/12/21 Game Advisor Relationship Specialty Start Date End Date Tonya Arriaga NUCLEAR PLANT EQUIPMENT OPERATOR [address] [place] [address] PCP - General Internal Medicine 12/12/21 Lauren Daniel [address] [place] [address] Family Medicine 12/12/21 Dipak Henao MD [address] [place] [address] [facility] Family Medicine 03/09/20 Carter Pierce(Historical), [address] [place] [address] Referring Family Medicine 12/07/21 Melania Petty NP [address] [place] [address] Family Medicine 12/12/21 Game Advisor Relationship Specialty Start Date End Date Tonya Arriaga NUCLEAR PLANT EQUIPMENT OPERATOR [address] [place] [address] PCP - General Internal Medicine 12/12/21 Lauren Daniel [address] [place] [address] Family Medicine 12/12/21 Dipak Henao MD [address] [place] [address] [facility] Family [facility] 03/09/20 Carter Pierce(Historical), [address] [place] [address] Referring Family Medicine 12/07/21 Melania Petty NP [address] [place] [address] Family Medicine 12/12/21 Game Advisor Relationship Specialty Start Date End Date Tonya Arriaga NUCLEAR PLANT EQUIPMENT OPERATOR [address] [place] [address] PCP - General Internal Medicine 12/12/21 Lauren Daniel [address] [place] [address] Family Medicine 12/12/21 Dipak Henao MD [address] [place] [address] [facility] Family [facility] 03/09/20 Carter iPerce(Historical), [address] [place] [address] Referring Family Medicine 12/07/21 Melania Petty NP [address] [place] [address] Family Medicine 12/12/21 Game Advisor Relationship Specialty Start Date End Date Tonya Arriaga, NUCLEAR PLANT EQUIPMENT OPERATOR [address] [place] [address] PCP - General Internal Medicine 12/12/21 Lauren Daniel [address] [place] [address] Family Medicine 12/12/21 Dipak Henao MD [address] [place] [address] [facility] 03/09/20 Carter Pierce(Historical), [address] [place] [address] Referring Family Medicine 12/07/21 Melania Petty NP [address] [place] [address] Family Medicine 12/12/21 Game Advisor Relationship Specialty Start Date End Date Tonya Arriaga, NUCLEAR PLANT EQUIPMENT OPERATOR [address] [place] [address] PCP - General Internal Medicine 12/12/21 Lauren Daniel [address] [place] [address] Family Medicine 12/12/21 Dipak Henao MD [address] [place] [address] [facility] 03/09/20 Carter Pierce(Historical), [address] [place] [address] Referring Family Medicine 12/07/21 Melania Petty NP [address] [place] [address] Family Medicine 12/12/21 Game Advisor Relationship Specialty Start Date End Date Tonya Arriaga, NUCLEAR PLANT EQUIPMENT OPERATOR [address] [place] [address] PCP - General Internal Medicine 12/12/21 Lauren Daniel [address] [place] [address] Family Medicine 12/12/21 Dipak Henao MD [address] [place] [address] [facility] 03/09/20 Carter Pierce(Historical), [address] [place] [address] Referring Family Medicine 12/07/21 Melania Petty NP [address] [place] [address] Family Medicine 12/12/21 Game Advisor Relationship Specialty Start Date End Date Tonya Arriaga, NUCLEAR PLANT EQUIPMENT OPERATOR [address] [place] [address] PCP - General Internal Medicine 12/12/21 Lauren Daniel [address] [place] [address] Family Medicine 12/12/21 Dipak Henao MD [address] [place] [address] [facility] Family Medicine 03/09/20 Carter Pierce(Historical), [address] [place] [address] Referring Family Medicine 12/07/21 Melania Petty, JAYME [address] [place] [address] Family Medicine 12/12/21 Game Advisor Relationship Specialty Start Date End Date Tonya Arriaga, NUCLEAR PLANT EQUIPMENT OPERATOR [address] [place] [address] PCP - General Internal Medicine 12/12/21 Lauren Daniel [address] [place] [address] Family Medicine 12/12/21 Dipak Henao MD [address] [place] [address] [facility] Family [facility] 03/09/20 Carter Pierce(Historical), [address] [place] [address] Referring Family Medicine 12/07/21 Melania Petty, JAYME [address] [place] [address] Family Medicine 12/12/21 Reyes Azevedo MD [address] [place] [address] Home Care Provider Neurosurgery 07/05/22 Wilmer Choi PA-C [address] [place] [address] Referring Neurosurgery 07/05/22 Amarilis Molina, PT [address] [place] [address] Auto Transmission Technician Post Acute Care 07/05/22 Game Advisor Relationship Specialty Start Date End Date Tonya Arriaga, NUCLEAR PLANT EQUIPMENT OPERATOR [address] [place] [address] PCP - General Internal Medicine 12/12/21 Lauren Daniel [address] [place] [address] Family Medicine 12/12/21 Dipak Henao MD [address] [place] [address] [facility] 03/09/20 Carter Pierce(Historical)MD [address] [place] [address] Referring Family Medicine 12/07/21 Melania Petty, JAYME [address] [place] [address] Family Medicine 12/12/21 Reyes Azevedo MD [address] [place] [address] Home Care Provider Neurosurgery 07/05/22 Wilmer Choi PA-C [address] [place] [address] Referring Neurosurgery 07/05/22 Amarilis Molina, PT [address] [place] [address] Auto Transmission Technician Post Acute Care 07/05/22 Game Advisor Relationship Specialty Start Date End Date Tonya Arriaga NUCLEAR PLANT EQUIPMENT OPERATOR [address] [place] [address] PCP - General Internal Medicine 12/12/21 Lauren Daniel [address] [place] [address] Family Medicine 12/12/21 Dipak Henao MD [address] [facility] [place] [address] [facility] 03/09/20 Carter Pierce(Historical), [address] [facility] [place] [address] Referring Family Medicine 12/07/21 Melania Petty NP [address] [facility] [place] [place] [address] Family Medicine 12/12/21 Reyes Azevedo MD [address] [place], [place] 5232224 Home Care Provider Neurosurgery 07/05/22 Wilmer Choi PA-C [address] [place], [place] [address] Referring Neurosurgery 07/05/22 Amarilis Molina, PT [address] [place] [address] Auto Transmission Technician Post Acute Care 07/05/22 Game Advisor Relationship Specialty Start Date End Date Tonya Arriaag, NUCLEAR PLANT EQUIPMENT OPERATOR [address] [place] [address] PCP - General Internal Medicine 12/12/21 Lauren Daniel [address] [place] [address] Family Medicine 12/12/21 Dipak Henao MD [address] [place] [address] [facility] Family Medicine 03/09/20 Carter Pierce(Historical), [address] [place] [address] Referring Family Medicine 12/07/21 Melania Petty NP [address] [place] [address] Family Medicine 12/12/21 Reyes Azevedo MD [address] [place], [place] [address]24 Home Care Provider Neurosurgery 07/05/22 Wilmer Choi PA-C [address] [place], [place] [address]607[address] Referring Neurosurgery 07/05/22 Amarilis Molina, PT [address] [place], [place] [id number] Auto Transmission Technician Post Acute Care 07/05/22 Game Advisor Relationship Specialty Start Date End Date Tonya Arriaga, NUCLEAR PLANT EQUIPMENT OPERATOR [address] [place] [address] PCP - General Internal Medicine 12/12/21 Lauren Daniel [address] [place] [address] Family Medicine 12/12/21 Dipak Henao MD [address] [place] [address] [facility] Family Medicine 03/09/20 Carter Pierce(Historical), [address] [place] [address] Referring Family Medicine 12/07/21 Melania Petty NP [address] [place] [address] Family Medicine 12/12/21 Reyes Azevedo MD [address] [place], [place] [id number] Home Care Provider Neurosurgery 07/05/22 Wilmer Choi PA-C [address] [place] [address] Referring Neurosurgery 07/05/22 Amarilis Molina, PT [address] [place] [address] Auto Transmission Technician Post Acute Care 07/05/22 Game Advisor Relationship Specialty Start Date End Date Tonya Arriaga, NUCLEAR PLANT EQUIPMENT OPERATOR [address] [place] [address] PCP - General Internal Medicine 12/12/21 Lauren Daniel [address] [place] [address] Family Medicine 12/12/21 Dipak Henao MD [address] [place] [address] [facility] 03/09/20 Carter Pierce(Historical)MD [address] [place] [address] Referring Family Medicine 12/07/21 Melania Petty NP [address] [place] [address] Family Medicine 12/12/21 Reyes Azevedo MD [address] [place] [address] Home Care Provider Neurosurgery 07/05/22 Wilmer Choi PA-C [address] [place] [address] Referring Neurosurgery 07/05/22 Amarilis Molina, PT [address] [place] [address] Auto Transmission Technician Post Acute Care 07/05/22 Game Advisor Relationship Specialty Start Date End Date Tonya Arriaga CNP [address] [place] [address] PCP - General Internal Medicine 12/12/21 Lauren Daniel [address] [place] [address] Family Medicine 12/12/21 Dipak Henao MD [address] [place] [address] [facility] 03/09/20 Carter Pierce(Historical)MD [address] [place] [address] Referring Family Medicine 12/07/21 Melania Petty NP [address] [place] [address] Family Medicine 12/12/21 Reyes Azevedo MD [address] [place], [place] [id number] Home Care Provider Neurosurgery 07/05/22 Wilmer Choi PA-C [address] [place] [address] [id number] Referring Neurosurgery 07/05/22 Amarilis Molina, PT [address] [place], [place] [id number] Auto Transmission Technician Post Acute Care 07/05/22 Game Advisor Relationship Specialty Start Date End Date Tonya Arriaga CNP [address] [place] [address] PCP - General Internal Medicine 12/12/21 Lauren Daniel [address] [place] [address] Family Medicine 12/12/21 Dipak Henao MD [address] [facility] [place] [address] [facility] Family Medicine 03/09/20 Carter Pierce(Historical)MD [address] [facility] [place] [address] Referring Family Medicine 12/07/21 Melania Petty, JAYME [address] [place] [address] Family Medicine 12/12/21 Reyes Azevedo MD [address] [place], [place] [id number] Home Care Provider Neurosurgery 07/05/22 Wilmer Choi PA-C [address] [place] [address] Referring Neurosurgery 07/05/22 Amarilis Molina, PT [address] [place] [address] Auto Transmission Technician Post Acute Care 07/05/22 Game Advisor Relationship Specialty Start Date End Date Tonya Arriaga CNP [address] [place] [address] PCP - General Internal Medicine 12/12/21 Lauren Daniel [address] [facility] [address] Family Medicine 12/12/21 Dipak Henao MD [address] [facility] [place] [address] [facility] Family [facility] 03/09/20 Carter Pierce(Historical)MD [address] [facility] [place] [address] Referring Family Medicine 12/07/21 Melania Petty, JAYME [address] [place] [address] Family Medicine 12/12/21 Reyes Azevedo MD [address] [place] [address] [id number] Home Care Provider Neurosurgery 07/05/22 Wilmer Choi PA-C [address] [place], [place] [id number] Referring Neurosurgery 07/05/22 Amarilis Molina, PT [address] [place], [place] [id number] Auto Transmission Technician Post Acute Care 07/05/22 Game Advisor Relationship Specialty Start Date End Date Tonya Arriaga CNP [address] [place] [address] PCP - General Internal Medicine 12/12/21 Lauren Daniel [address] [place] [address] Family Medicine 12/12/21 Dipak Henao MD [address] [place] [address] [facility] 03/09/20 Carter Pierce(Historical)MD [address] [place] [address] Referring Family Medicine 12/07/21 Melania Petty NP [address] [place] [address] Family Medicine 12/12/21 Team Status: Active Member Role Status Dates Dr. Ceci Olivas Family Provider Active [facility] Primary Care Provider A ctive Team Status: Inactive Member Role Status Dates [facility] Primary Care Provider A ctive Dr. Papo Peterson , DO Emergency Provider Active Game Advisor Relationship Specialty Start Date End Date Tonya Arriaga CNP [address] [facility] [address] PCP - General Internal Medicine 12/12/21 Lauren Daniel [address] [place] [address] Family Medicine 12/12/21 Dipak Henao MD [address] [place] [address] [facility] 03/09/20 Carter Pierce(Historical)MD [address] [place] [address] Referring Family Medicine 12/07/21 Melania Petty NP [address] [place] [address] Family Medicine 12/12/21 Reyes Azevedo MD [address] [place], [place] [phone] Home Care Provider Neurosurgery 07/05/22 Wilmer Choi PA-C [address] [place], [place] [id number] Referring Neurosurgery 07/05/22 Amarilis Molina, PT [address] [place] [address] 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 Papo Peterson , DO Attending Provider, Emergency P stephanie Active Team Status: Inactive Member Role Status Dates [facility] Primary Care Provider A ctive Dr. Kota Saha , DO Emergency Provider Active Team Status: Inactive Member Role Status Dates [facility] Primary Care Provider A ctive Dr. Lance Betancourt MD Emergency Provider Active Team Status: Inactive Member Role Status Dates [facility] Primary Care Provider A ctive Dr. 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 Yung Wright DO Attending Provider Active Start: June 16, 2024 End: June 16, 2024 Dr. Yung Wright DO Emergency Provider Active Start: June 16, 2024 End: June 16, 2024 Team Status: Active Member Role/Relationship Status Dates [facility] Primary Care Provider A ctive Start: September 30, 2024 [facility] Referring Provider Acti ve Start: September 30, 2024 SEBASTIAN Luis Attending Provider Active Star t: September 30, 2024 Team Status: Inactive Member Role/Relationship Status Dates [facility] Primary Care Provider A ctive Start: September 30, 2024 End: September 30, 2024 Dr. Abel Atkins MD Attending Provider Active S tart: September 30, 2024 End: September 30, 2024 Team Status: Inactive Member Role/Relationship Status Dates [facility] Primary Care Provider A ctive Start: September 30, 2024 End: September 30, 2024 [facility] Referring Provider Acti ve Start: September 30, 2024 End: September 30, 2024 SEBASTIAN Luis Attending Provider Active Star t: September 30, 2024 End: September 30, 2024 Team Status: Active Member Role/Relationship Status Dates No Primary Care Physician Primary Care Provider Active Team Status: Inactive Member Role/Relationship Status Dates [facility] Primary Care Provider A ctive Start: September 30, 2024 End: September 30, 2024 [facility] Referring Provider Acti ve Start: September 30, 2024 End: September 30, 2024 SEBASTIAN Luis Attending Provider Active Star t: September 30, 2024 End: September 30, 2024 Team Status: Inactive Member Role/Relationship Status Dates [facility] Primary Care Provider A ctive Start: [...] Team Status: Inactive Member Role/Relationship Status Dates [facility] Primary care physician Active Start: September 30, 2024 End: September 30, 2024 [facility] Referring Provider Acti ve Start: September 30, 2024 End: September 30, 2024 SEBASTIAN Luis Attending physician Active Sta rt: September 30, 2024 End: September 30, 2024 Team Status: Inactive Member Role/Relationship Status Dates [facility] Primary care physician Active Start: September [...] 2024 Dr. Kamari Diaz MD Emergency Depart [facility] Physician Active Start: October 31, 2024 End: October 31, 2024 Team Status: Inactive Member Role/Relationship Status Dates SEBASTIAN Luis Attending physician Active Sta rt: November 01, 2024 End: November 01, 2024 SEBASTIAN Luis Referring Provider Active Star t: November 01, 2024 End: November 01, 2024 No Primary Care Physician Primary care physician Activ e Start: November 01, 2024 End: November 01, 2024 Team Status: Inactive Member Role/Relationship Status Dates No Primary Care Physician Primary care physician Activ e Start: December 07, 2024 End: December 07, 2024 Dr. Carter Jimenez , Attending physician Active Start: December 07, 2024 End: December 07, 2024 Dr. Carter Jimenez , DO Emergency Departm ent Physician Active Start: December 07, 2024 End: December 07, 2024 Goals (unrecognized section and content) Goals [...] BE BASED ON THE PRIMARY CLINICAL RECORDS. [employer] provides no warranty or guarantee of the accuracy or completeness of information in this document.
[2025-02-11] MEDS: Famotidine 200 MG/20 ML MDV 20 MG in 0.9% Normal Saline (Pres. free 8 ML 300 MG IV (15:36)
[2025-02-11 15:45] LABS: Anion Gap 16 (5-15); BUN 24 mg/dL (4-19); BUN/Creat Ratio 35.6 RATIO (10-20); Calcium,Total 10.0 mg/dL (7.6-11.0); Carbon Dioxide 25.0 mmol/L (21.0-32.0); Chloride 98 mmol/L (98-108); Estimated Creatinine Clearance 125.18 ml/min (50-250); Glucose 126 mg/dL (70-99); Potassium 3.1 mmol/L (3.3-5.1)
[2025-02-11] MEDS: Potassium Chloride Oral Soln 20 MEQ/15 ML UDC 40 MEQ PO (17:43)
[2025-02-11] MEDS: DiphenhydrAMINE 50 MG/ML Syringe 25 MG IV (17:53)
== END 2025-02-11 22:00 | disposition home or self-care (01) ==
PROVIDERS: Emergency Provider Emergency Medicine; Visit Provider Emergency Medicine
DX: R11.2 Nausea with vomiting, unspecified (principal); R03.0 Elevated blood-pressure reading, without diagnosis of hypertension; E87.6 Hypokalemia; E86.0 Dehydration; K21.9 Gastro-esophageal reflux disease without esophagitis; F17.210 Nicotine dependence, cigarettes, uncomplicated; R10.84 Generalized abdominal pain; R79.89 Other specified abnormal findings of blood chemistry
CPT/HCPCS: 80048; 85025; 96361; 96374; 96375; 99283; A4216; J2405